=== PATIENT | male | born 1980 | race Caucasian/White ===

== ENCOUNTER 2024-01-27 14:15 | Emergency (ER) | payer MEDICAID, SELFPAY ==
[2024-01-27 14:30] VITALS: BP 144/99; PULSE 114; TEMP 36.6; O2SAT 95; BMI 30.1
--- NOTE | 2024-01-27 14:36 | US_ITS ---
The [address] [address] Patient Name: JOSELYN CARNES MRN: [id number] date: 1980 Sex: M Assigned Patient Location: ER Current Patient Location: Accession/Order Number: [id number] Exam Date: 01/27/2024 14:40 Report Date: 01/27/2024 15:30 At the request of: ABIGAIL HANCOCK Procedure: US venous doppler LE RT EXAM: US venous doppler LE RT HISTORY: DVT COMPARISON: None. TECHNIQUE: Grayscale, color and Doppler FINDINGS: Region: Right leg Thrombus: Echogenic thrombus identified in the great saphenous vein extending from the mid thigh to the proximal lower leg. No deep vein thrombus Flow: Absent flow corresponding to thrombus Compressibility: Noncompressibility corresponding to thrombus Augmentation: Normal proximal augmentation US/US venous doppler LE RT IMPRESSION: Occlusive superficial vein thrombus in the right great saphenous vein No right leg deep vein thrombus Electronically authenticated by: DILCIA GARZA Date: 01/27/2024 15:30
--- NOTE | 2024-01-27 14:37 | ED_ITS ---
HPI HPI - General Adult General Chief complaint: Extremity Problem, Nontraumatic Stated complaint: LOWER EXTREMITY PAIN Time Seen by Provider: 01/27/24 14:19 Source: patient Mode of arrival: walk-in Limitations: no limitations History of Present Illness HPI narrative: Patient is a 43-year-old male who presents to the emergency department for redness to the right medial thigh, he states he believes he has 2 blood clots. He states yesterday he noted some redness to the posterior right knee but this has resolved today and he now notes redness in the medial thigh. He has a history of DVT apparently although he is not currently anticoagulated. He is a regular smoker. No falls or injuries. No fevers or vomiting. No drainage from the areas. Related Data Previous Rx's ?Medication ?Instructions ?Recorded aspirin 81 mg capsule 81 mg PO DAILY #30 caps 01/27/24 ketorolac 10 mg tablet 10 mg PO TID PRN pain #10 tabs 01/27/24 Allergies Allergy/AdvReac Type Severity Reaction Status Date / Time sulfamethoxazole Allergy Severe hives Verified 01/27/24 14:36 [From Bactrim] trimethoprim [From Bactrim] Allergy Severe hives Verified 01/27/24 14:36 Opioid HPI Opioid Management Most Recent Opioid Data: No Data to Display Review of Systems ROS Constitutional Denies: fever or chills Ears, nose, mouth, and throat Denies: throat pain or nasal congestion Respiratory Denies: shortness of breath Gastrointestinal Denies: nausea or vomiting Musculoskeletal Reports: extremity pain; Denies: back pain or neck pain Integumentary/Breast Denies: rash Hematologic/Lymphatic Denies: easy bruising or easy bleeding Exam Narrative Exam Narrative: Gen.: Awake, alert, in no distress Head: Normocephalic, atraumatic ENT: Moist mucous membranes Respiratory: No respiratory distress Extremities: Right medial thigh with a small area of blanching erythema, no palpable masses or induration. No open wounds or drainage. No visible swelling or redness to the right posterior knee. Calves are soft and nontender bilaterally Psych: Normal mood and affect Neuro: No focal neuro deficit Skin: Warm, dry, intact Constitutional Vital Signs, click to edit/add: Last Vital Signs Temp 97.9 F 01/27/24 14:30 Pulse 114 H 08/14/24 14:30 Resp 18 01/27/24 14:30 BP 144/99 H 01/27/24 14:30 Pulse Ox 95 01/27/24 14:30 O2 Del Method Room Air 01/27/24 14:30 Course Vital Signs Vital signs: Vital Signs Temperature 97.9 F 01/27/24 14:30 Pulse Rate 114 H 01/27/24 14:30 Respiratory Rate 18 01/27/24 14:30 Blood Pressure 144/99 H 01/27/24 14:30 Pulse Oximetry 95 01/27/24 14:30 Oxygen Delivery Method Room Air 01/27/24 14:30 Temperature 97.9 F 01/27/24 14:30 Pulse Rate 114 H 01/27/24 14:30 Respiratory Rate 18 01/27/24 14:30 Blood Pressure 144/99 H 01/27/24 14:30 Pulse Oximetry 95 01/27/24 14:30 Oxygen Delivery Method Room Air 01/27/24 14:30 Medical Decision Making MDM Narrative Medical decision making narrative: Ultrasound shows superficial clot in the right GSV at the area of redness in the patient's right medial thigh. He is encouraged to take aspirin daily, apply warm compresses and he is given anti-inflammatories for comfort. Follow-up with PCP and return to the ER if symptoms change or worsen. SUPERVISED APC VISIT, PHYSICIAN ATTESTATION: Based on the medical record the care appears appropriate. ? Medical Records Medical records reviewed: Yes I reviewed the patient's medical records Imaging Data Venous US: Attestation: I have reviewed the pertinent imaging results. Discharge Plan Discharge Stand Alone Forms: Portal Instructions Chief Complaint: Extremity Problem, Nontraumatic Clinical Impression: Superficial thrombophlebitis of right leg Patient Disposition: Home, Self-Care Time of Disposition Decision: 15:18 Condition: Good Prescriptions / Home Meds: New aspirin 81 mg capsule 81 mg PO DAILY Qty: 30 0RF ketorolac 10 mg tablet 10 mg PO TID PRN (Reason: pain) Qty: 10 0RF Print Language: Albanian Instructions: Superficial Thrombophlebitis (ED) Referrals: SHANTHI FRANCO [Primary Care Provider] - 1 week
[2024-01-27] MEDS: KETOROLAC TROMETHAMINE 10 MG TABLET PO (15:23)
== END 2024-01-27 15:26 | disposition home or self-care (01) ==
PROVIDERS: Emergency Provider Emergency Medicine; PCP Nurse Practitioner
DX: I80.01 Phlebitis and thrombophlebitis of superficial vessels of right lower extremity (principal); Z86.718 Personal history of other venous thrombosis and embolism; F17.200 Nicotine dependence, unspecified, uncomplicated
CPT/HCPCS: 93971; 99284

== ENCOUNTER 2024-11-24 13:25 | Emergency (ER) | payer MEDICAID, SELFPAY ==
--- OUTSIDE RECORDS SUMMARY | 2022-12-17 05:15 | XMS_ITS | Continuity of Care Document ---
Author [facility] Address [address] [place] [address] Phone Care Team Providers Care Photographs Curator Name Role Phone Sang Bhatti MD Unavailable Unavailable Allergies, Adverse Reactions, Alerts Substance Reaction Status Criticality Sulfa (Sulfonamide Antibiotics) Unknown Active No Information trimethoprim Unknown Active No Information sulfamethoxazole Unknown Active No Informat ion Medications Medication Instructions Dosage Effective Dates (start - stop) Status Comments Ritalin 10 mg tablet take 3 tablet by or al route in AM and 1 tablet in the PM every day - Active Eliquis 5 mg tablet take 1 tablet by ora l route 2 times every day 5 MG - Active Zoloft 100 mg tablet take 2 tablet by or al route at bed time - Active Protonix 40 mg tablet,delayed release take 1 tablet by oral route every day 40 MG - Active Problems Condition Type Effective Dates (start - stop) Clini mario Status Comments No Known Problems Procedures Procedure Date REMOVAL OF LYMPH NODES, NECK OFFICE/OUTPATIENT VISIT, EST BIOPSY/REMOVAL, LYMPH NODES OFFICE/OUTPATIENT VISIT, EST OFFICE/OUTPATIENT VISIT, EST OFFICE/OUTPATIENT VISIT, EST OFFICE/OUTPATIENT VISIT, EST OFFICE/OUTPATIENT VISIT, EST OFFICE/OUTPATIENT VISIT, EST INITIAL INPATIENT CONSULT REMOVAL TUNNELED CV CATH SUBSEQUENT HOSPITAL CARE HOSPITAL DISCHARGE DAY INITIAL HOSPITAL CARE SUBSEQUENT HOSPITAL CARE OFFICE/OUTPATIENT VISIT, EST OFFICE/OUTPATIENT VISIT, EST HOSPITAL DISCHARGE DAY SUBSEQUENT HOSPITAL CARE SUBSEQUENT HOSPITAL CARE INITIAL HOSPITAL CARE BIOPSY/REMOVAL, LYMPH NODES OFFICE/OUTPATIENT VISIT, EST INSERT NON-TUNNEL CV CATH BIOPSY/REMOVAL, LYMPH NODES OFFICE/OUTPATIENT VISIT, EST OFFICE/OUTPATIENT VISIT, EST Guidance For Localization Guidance For Localization Guidance For Localization Guidance For Localization RADIATION TX MANAGEMENT, X5 CT Guidance For Placement Radiation Ther apy IGRT CT Guidance For Placement Radiation Ther apy IGRT CT Guidance For Placement Radiation Ther apy IGRT CT Guidance For Placement Radiation Ther apy IGRT Teletherapy Isodose Plan Complex 2015 Treatment Devices, Complex Simple Simulation RADIATION TX MANAGEMENT, X5 CT Guidance For Placement Radiation Ther apy IGRT CT Guidance For Placement Radiation Ther apy IGRT Complex Simulation CT Guidance For Placement Radiation Ther apy IGRT CT Guidance For Placement Radiation Ther apy IGRT RADIATION TX MANAGEMENT, X5 OFFICE/OUTPATIENT VISIT, EST CT Guidance For Placement Radiation Ther apy IGRT CT Guidance For Placement Radiation Ther apy IGRT CT Guidance For Placement Radiation Ther apy IGRT CT Guidance For Placement Radiation Ther apy IGRT CT Guidance For Placement Radiation Ther apy IGRT RADIATION TX MANAGEMENT, X5 CT Guidance For Placement Radiation Ther apy IGRT Treatment Devices, Complex Complex Simulation CT Guidance For Placement Radiation Ther apy IGRT CT Guidance For Placement Radiation Ther apy IGRT CT Guidance For Placement Radiation Ther apy IGRT CT Guidance For Placement Radiation Ther apy IGRT RADIATION TX MANAGEMENT, X5 Simple Simulation SET RADIATION THERAPY FIELD Basic Radiation Dosimetry Calculation Se Treatment Devices, Complex OFFICE/OUTPATIENT VISIT, EST RADIATION THERAPY PLANNING OFFICE/OUTPATIENT VISIT, NEW OFFICE/OUTPATIENT VISIT, EST OFFICE/OUTPATIENT VISIT, EST OFFICE/OUTPATIENT VISIT, EST OFFICE/OUTPATIENT VISIT, EST OFFICE/OUTPATIENT VISIT, EST OFFICE/OUTPATIENT VISIT, EST OFFICE/OUTPATIENT VISIT, EST INSERT NON-TUNNEL CV CATH OFFICE/OUTPATIENT VISIT, EST INSERT NON-TUNNEL CV CATH OFFICE/OUTPATIENT VISIT, EST OFFICE/OUTPATIENT VISIT, EST OFFICE/OUTPATIENT VISIT, EST BIOPSY/REMOVAL, LYMPH NODES OFFICE/OUTPATIENT VISIT, NEW OFFICE/OUTPATIENT VISIT, EST OFFICE/OUTPATIENT VISIT, EST OFFICE/OUTPATIENT VISIT, EST OFFICE/OUTPATIENT VISIT, EST OFFICE/OUTPATIENT VISIT, EST OFFICE/OUTPATIENT VISIT, NEW Advance Directives Directive Yes / No Effective Date File Name No Information Encounters Encounter Description Practice Location Reason(s) For Visit Diagnoses Date Provider Providers Copied on Encounter [facility], [address] [place] [address] B, [place], [place], [id number] , [place] tel:[phone] [facility] No Information 3 Magy Domínguez. [address] [place] [address], [place], [place], [address], [place]. tel:[phone] Referring Provider: Sang Corley, [address] [place] [address] [address], [place], [address] . tel:[phone] OFFICE/OUTPA TIENT VISIT, EST [facility], [address], [place], [place], [address] , [place] tel:[phone] [facility] No Information 3 Magy Domínguez. [address], [place], [place], [address], [place]. tel:[phone] Referring Provider: Sang Corley, [address], [place], [address] . tel:[phone] [facility] [facility], [address], [place], [place], [address] , [place] tel:[phone] [facility] No Information Sep- 9 Magy Domínguez. [address], [place], [place], [address], [place]. tel:[phone] Referring Provider: Sang Corley, [address] [facility] [address], [place], [address] . tel:[phone] OFFICE/OUTPA TIENT VISIT, [facility], [address], [place], [place], [address] , [place] tel:[phone] [facility] No Information 9 Magy Domínguez. [address], [place], [place], [address], [place]. tel:[phone] Referring Provider: Sang Corley, [address], [place], [address] . tel:[phone] OFFICE/OUTPA TIENT VISIT, [facility], [address], [place], [place], [address] , [place] tel:[phone] [facility] Chronic pain syndrome (chief complaint) Hodgkin lymphoma of lymph nodes of multiple regions, unspecified Hodgkin lymphoma typeGAD (generalized anxiety disorder)Deep vein thrombosis (DVT) of right upper extremity, unspecified chronicity, unspecified veinSwelling of right hand Sep-1 7 Ashley Reece. [address] [place] [address] [address], [place], [place], [address], [place]. tel:[phone] Referring Provider: Chevy Chaparro, [facility] [address], [place], [address] . tel:[phone] OFFICE/OUTPA TIENT VISIT, [facility], [address] [place] [address] [address], [place], [place], [address] , [place] tel:[phone] [facility] Chronic pain syndrome (chief complaint) Hodgkin lymphoma of lymph nodes of multiple regions, unspecified Hodgkin lymphoma typeRLQ abdominal pain Ashley Reece. [facility] [address], [place], [place], [address], [place]. tel:[phone] Referring Provider: Chevy Chaparro, [address] [place], [place] [address] [address], [place], [address] . tel:[phone] OFFICE/OUTPA TIENT VISIT, [facility], [address] [place] [address] [address], [place], [place], [address] , [place] tel:[phone] [facility] Chronic pain syndrome (chief complaint) Chronic pain syndromeDepres kelsie, unspecified depression typeCigarette nicotine dependence without complication Ashley Reece. [facility] [address], [place], [place], [address], [place]. tel:[phone] Referring Provider: Chevy Chaparro, [facility] [address], [place], [address] . tel:[phone] OFFICE/OUTPA TIENT VISIT, [facility], [address] [place] [address] [address], [place], [place], [address] , [place] tel:[phone] [facility] Chronic pain syndrome (chief complaint) Malignant neoplasm metastatic to lumbar spine with unknown primary siteDeep vein thrombosis (DVT) of right upper extremity, unspecified chronicity, unspecified veinHodgkin lymphoma, unspecified Hodgkin lymphoma type, unspecified body region Ashley Reece. [facility] [address], [place], [place], [address], [place]. tel:[phone] Referring Provider: Chevy Chaparro, [address] [place], [place] [address] [address], [place], [address] . tel:[phone] OFFICE/OUTPA TIENT VISIT, [facility], [address], [place], [place], [address] , [place] tel:[phone] [facility] TCM (chief complaint) Cellulitis of chest wallDeep vein thrombosis (DVT) of right upper extremity, unspecified chronicity, unspecified vein 7 Ashley Reece. [address], [place], [place], [address], [place]. tel:[phone] Referring Provider: Chevy Chaparro, [address] [facility] [address], [place], [address] . tel:[phone] INITIAL INPATIENT CONSULT [facility], [address] [place] [address] [address], [place], [place], [address] , [place] tel:[phone] [facility] No Information 7 Magy Domínguez. [address], [place], [place], [address], [place]. tel:[phone] [facility], [address], [place], [place], [address] , [place] tel:[phone] [facility] No Information 7 Guillermo Jose. [address], [place], [place], [address], [place]. tel:[phone] Referring Provider: Rebeca Li, [address], [place], [address] . tel:[phone] INITIAL [facility], [address] [place] [address] [address], [place], [place], [address] , [place] tel:[phone] [facility] No Information 7 No Information OFFICE/OUTPA TIENT VISIT, [facility], [address] [place] [address] [address], [place], [place], [address] , [place] tel:[phone] [facility] Port (chief complaint)Hodp kin's disease (chief complaint) CML (chronic myelocytic leukemia)Pain, neckTinea versicolorGyne comastia 7 Ashley Reece. [address] [place] [address] [address], [place], [place], [address], [place]. tel:[phone] Referring Provider: Chevy Chaparro, [address] [place] [address], [place], [address] . tel:[phone] OFFICE/OUTPA TIENT VISIT, [facility], [address] [place] [address] B, [place], [place], [address] , [place] tel:[phone] [facility] Cough (chief complaint) Hodgkin lymphoma of lymph nodes of multiple regions, unspecified Hodgkin lymphoma typeDepression , unspecified depression typeGastroesop hageal reflux disease, esophagitis presence not specified 7 Ashley Reece. [address] [place] [address], [place], [place], [address], [place]. tel:[phone] Referring Provider: Chevy Chaparro, [address] [place] [address], [place], [address] . tel:[phone] HOSPITAL DISCHARGE DAY [facility], [address] [place] [address], [place], [place], [address] , [place] tel:[phone] [facility] No Information 7 No Information SUBSEQUENT [facility], [address] [place] [address], [place], [place], [address] , [place] tel:[phone] [facility] No Information 7 No Information INITIAL [facility], [address] [place] [address], [place], [place], [address] , [place] tel:[phone] [facility] No Information 7 Hipolito Baker. [address] [place], [address], [place]. tel:[phone] Referring Provider: Samuel Mcmillan, [address] [place], [address] . tel:[phone] [facility], [address] [place] [address] B, [place], [place], [address] , [place] tel:[phone] [facility] No Information 7 Magy Domínguez. [facility] [address] [facility] [address], [place], [place], [address], [place]. tel:[phone] Referring Provider: Sang Corley, [address] [place] [address] [address], [place], [address] . tel:[phone] OFFICE/OUTPA TIENT VISIT, [facility], [address] [place] [address] [address], [place], [place], [address] , [place] [phone] [facility] No Information 7 Magy Domínguez. [facility] [address] [facility] [address], [place], [place], [address], [place]. tel:[phone] Referring Provider: Sang Corley, [address] [place] [address] [address], [place], [address] . tel:[phone] [facility] [facility], [address] [place] [address] [address], [place], [place], [address] , [place] tel:[phone] [facility] No Information 7 Magy Domínguez. [address], [place], [place], [address], [place]. tel:[phone] Referring Provider: Sang Corley, [address] [place] [address] [address], [place], [address] . tel:[phone] OFFICE/OUTPA TIENT VISIT, [facility], [address] [place] [address] [address], [place], [place], [address] , [place] tel:[phone] [facility] No Information 7 Magy Domínguez. [address] [place] [address] [address], [place], [place], [address], [place]. tel:[phone] Referring Provider: Sang Corley, [address] [place] [address] [address], [place], [address] . tel:[phone] OFFICE/OUTPA TIENT VISIT, [facility] [employer] [facility], [address] [place] [address] [address], [place], [place], [address] , [place] tel:[phone] [facility] Depression (chief complaint) Chronic low back pain with sciatica, sciatica laterality unspecified, unspecified back pain lateralityHodg kin lymphoma of lymph nodes of multiple regions, unspecified Hodgkin lymphoma typeGAD (generalized anxiety disorder)Depre ssion, unspecified depression type 7 Ashley Reece. [address], [place], [place], [address], [place]. tel:[phone] Referring Provider: Chevy Chaparro, [address] [facility] [address], [place], [address] . tel:[phone] [facility] [facility], [address] [place] [address] [address], [place], [place], [address] , [place] tel:[phone] [facility] No Information 4 6 No [facility] [facility], [address] [place] [address] [address], [place], [place], [address] , [place] tel:[phone] [facility] No Information 0 6 No [facility], [address] [place] [address] [address], [place], [place], [address] , [place] tel:[phone] [facility] No Information 9 6 No [facility], [address] [place] [address] [address], [place], [place], [address] , [place] tel:[phone] [facility] No Information 8 6 No [facility], [address] [place] [address] [address], [place], [place], [address] , [place] tel:[phone] [facility] No Information 3 6 No [facility], [address] [place] [address] [address], [place], [place], [address] , [place] tel:[phone] [facility] No Information 2- 6 No [facility], [address] [place] [address] B, [place], [place], [address] , [place] tel:[phone] [facility] No Information 6 No [facility], [address], [place], [address] , [place] tel:[phone] [facility] No Information 6 No [facility], [address], [place], [address] , [place] tel:[phone] [facility] No Information 6 No [facility], [address], [place], [address] , [place] tel:[phone] [facility] No Information 6 No [facility] [facility], [address], [place], [address] , [place] tel:[phone] [facility] No Information 6 No [employer], [address], [place], [address] , [place] tel:[phone] [facility] No Information 6 No [employer], [address], [place], [address] , [place] tel:[phone] [facility] No Information 6 No [employer], [address], [place], [address] , [place] tel:[phone] [facility] No Information 6 No Information OFFICE/OUTPA TIENT VISIT, [facility] [facility], [address], [place], [address] , [place] tel:[phone] [facility] musculoskeleta l pain (chief complaint)canc er (chief complaint) Lumbago with sciatica, right sideOther chronic painHodgkin lymphoma, unspecified Hodgkin lymphoma type, unspecified body regionMetastat ic cancer to spine 6 Mirta Burgess. [address], [place], [place], [address], [place]. tel:[phone] Referring Provider: Aditya Kirby APRN PHYSICIAN INTERVENTIONAL CARDIOLOGIST-C, [address], [place], [address] . tel:[phone] [facility], [address], [place], [place], [address] , [place] tel:[phone] [facility] No Information 0 6 No [facility], [address], [place], [place], [address] , [place] tel: [phone] [facility] No Information 6 No [facility], [address], [place], [place], [address] , [place] tel:[phone] [facility] No Information 6 No [facility] [facility], [address], [place], [place], [address] , [place] tel:[phone] [facility] No Information 6 No [facility] [facility], [address], [place], [place], [address] , [place] tel:[phone] [facility] No Information 6 No [facility], [address], [place], [place], [address] , [place] tel: [phone] [facility] No Information 6 No [facility], [address], [place], [place], [address] , [place] tel:[phone] [facility] No Information 6 No [facility], [address], [place], [place], [address] , [place] tel:[phone] [facility] No Information 6 No [facility] [facility], [address], [place], [place], [address] , [place] tel:[phone] [facility] No Information 6 No [facility], [address], [place], [place], [address] , [place] tel: [phone] [facility] No Information 6 No [facility], [address], [place], [place], [address] , [place] tel: [phone] [facility] No Information 6 No [facility], [address] [place] [address] [address], [place], [place], [address] , [place] tel: [phone] [facility] No Information No Information OFFICE/OUTPA TIENT VISIT, [facility], [address], [place], [place], [address] , [place] tel: [phone] [facility] medication (chief complaint)depr ession (chief complaint) Depression, unspecified depression typeLumbago with sciatica, left sideLumbago with sciatica, right sideOther chronic painMetastatic cancer to spineHodgkin lymphoma, unspecified Hodgkin lymphoma type, unspecified body regionTobacco abuseMultiple episodes of deep venous thrombosis, bilateral Feb- 6 Mirta Burgess. [address] [address], [place], [place], [address], [place]. tel:[phone] Referring Provider: Aditya URIBE, [address] [place] [address] [address], [place], [address] . tel:[phone] OFFICE/OUTPA TIENT VISIT, [facility], [address] [place] [address] [address], [place], [place], [address] , [place] tel: [phone] [facility] No Information 6 No Information OFFICE/OUTPA TIENT VISIT, [facility], [address], [place], [place], [address] , [place] tel: [phone] [facility] depression (chief complaint)medi cation (chief complaint) Hodgkin lymphoma of lymph nodes of multiple regions, unspecified Hodgkin lymphoma typeMetastatic cancer to spineMid back pain on right sideChronic depressionMult iple episodes of deep venous thrombosis, bilateralOn warfarin therapy 6 Tanvi Calzada. [address] [place], [place], [address], [place]. tel:[phone] Referring Provider: Elsi Tinajero CNP, [address] [place], [address] . tel:[phone] [facility] [facility], [address] [place] [address] [address], [place], [place], [address] , [place] tel:[phone] [facility] Acute embolism and thrombosis of left axillary vein 6 Tanvi Calzada. [address] [place], [address], [place]. tel:[phone] OFFICE/OUTPA TIENT VISIT, [facility] [employer] [facility], [address], [place], [place], [address] , [place] tel:[phone] [facility] depression (chief complaint)Foll ow Up of left arm pain (chief complaint)RF meds (chief complaint)rash (chief complaint) Lymphoma, unspecified body region, unspecified lymphoma typeMetastatic bone cancerChronic low back pain with sciatica, sciatica laterality unspecified, unspecified back pain lateralityAcut e embolism and thrombosis of left axillary veinDepression , acuteTinea corporis 6 Tanvi Calzada. [address] [place], [place], [address], [place]. tel:[phone] Referring Provider: Elsi Tinajero CNP, [address] [place], [address] . tel:[phone] [facility] [facility], [address], [place], [place], [address] , [place] tel:[phone] [facility] Acute embolism and thrombosis of left axillary vein 6 Tanvi Calzada. [address] [place], [place], [address], [place]. tel:[phone] [facility], [address] [place] [address] Road [address], [place], [place], [address] , [place] tel: [phone] [facility] Acute embolism and thrombosis of left axillary vein 0 6 Tanvi Calzada. [address] [place] [place], [address], [place]. tel:[phone] OFFICE/OUTPA TIENT VISIT, [facility], [address] [place] [address] [address], [place], [place], [address] , [place] tel: [phone] [facility] medication (chief complaint)chem otherapy (chief complaint)depr ession (chief complaint) Depression, acutePainHodgk in lymphoma of lymph nodes of multiple regions, unspecified Hodgkin lymphoma typeAcute embolism and thrombosis of left axillary veinOn warfarin therapy 6 Tanvi Calzada. [address] [place], [place], [address], [place]. tel:[phone] Referring Provider: Elsi Tinajero CNP, [address] [place], [address] . tel:[phone] [facility], [address] [place] [address] [address], [place], [place], [address] , [place] tel: [phone] [facility] Acute embolism and thrombosis of left axillary vein 6 Tanvi Calzada. [address] [place], [place], [address], [place]. tel:[phone] [facility], [address] [place] [address] [address], [place], [place], [address] , [place] tel: [phone] [facility] Acute embolism and thrombosis of left axillary vein 6 Tanvi Calzada. [address] [place], [address], [place]. tel:[phone] OFFICE/OUTPA TIENT VISIT, [facility], [address] [place] [address] [address], [place], [place], [address] , [place] tel:[phone] [facility] Suture removal (chief complaint) DVT of left axillary vein, acuteMetastati c bone cancerVisit for suture removal 6 Ashley Reece. [address], [place], [place], [address], [place]. tel:[phone] Referring Provider: Chevy Chaparro, [address] [place] [address] [address], [place], [address] . tel:[phone] OFFICE/OUTPA TIENT VISIT, [facility], [address], [place], [place], [address] , [place] tel:[phone] [facility] Follow Up of DVT (chief complaint)Foll ow up on lab test(s) (chief complaint) DVT of left axillary vein, acuteGAD (generalized anxiety disorder)Hodgk in lymphoma of lymph nodes of multiple regions, unspecified Hodgkin lymphoma type 6 Ashley Reece. [address], [place], [place], [address], [place]. tel:[phone] Referring Provider: Chevy Chaparro, [address] [place] [address] [address], [place], [address] . tel:[phone] OFFICE/OUTPA TIENT VISIT, [facility], [address] [place] [address] [address], [place], [place], [address] , [place] tel:[phone] [facility] arm swelling (chief complaint) DVT of left axillary vein, acuteHodgkin lymphoma of lymph nodes of multiple regions, unspecified Hodgkin lymphoma typeDepression , acutePain 6 Tanvi Calzada. [address], [place], [place], [address], [place]. tel:[phone] Referring Provider: Elsi Tinajero CNP, [address], [place], [address] . tel:[phone] OFFICE/OUTPA TIENT VISIT, [facility], [address] [place] [address] [address], [place], [place], [address] , [place] tel:[phone] [facility] Hodgkin Lymphoma (chief complaint) Hodgkin lymphoma of lymph nodes of multiple regions, unspecified Hodgkin lymphoma type 6 Ashley Reece. [address], [place], [place], [address], [place]. tel:[phone] Referring Provider: Chevy Chaparro, [address], [place], [address] . tel:[phone] [facility] [facility], [address] [place] [address] [address], [place], [place], [address] , [place] tel:[phone] [facility] No Information No Information Referring Provider: Sang Corley, [address] [place] [address] [address], [place], [address] . tel:[phone] OFFICE/OUTPA TIENT VISIT, [facility], [address] [place] [address] [address], [place], [place], [address] , [place] tel:[phone] [facility] Reeves Lymphoma (chief complaint) Hodgkin lymphoma of lymph nodes of multiple regions, unspecified Hodgkin lymphoma typeChronic low back pain with sciatica, sciatica laterality unspecified, unspecified back pain lateralityGAD (generalized anxiety disorder) 6 Ashley Reece. [address], [place], [place], [address], [place]. [phone] Referring Provider: Chevy Chaparro, [address] [place], [place] [address] [address], [place], [address] . tel:[phone] [facility] [facility], [address] [place] [address] [address], [place], [place], [address] , [place] tel:[phone] [facility] No Information 6 Magy Domínguez. [address] [place] [address] [address], [place], [place], [address], [place]. tel:[phone] Referring Provider: Sang Corley, [address] [place] [address] [address], [place], [address] . tel:[phone] OFFICE/OUTPA TIENT VISIT, [facility], [address], [place], [place], [address] , [place] tel:[phone] [facility] No Information 6 Magy Domínguez. [address] [facility] [address], [place], [place], [address], [place]. tel:[phone] Referring Provider: Sang Corley, [address] [facility] [address], [place], [address] . tel:[phone] OFFICE/OUTPA TIENT VISIT, [facility], [address] [place] [address] [address], [place], [place], [address] , [place] tel:[phone] [facility] Follow up (chief complaint) Hodgkin lymphoma of lymph nodes of multiple regions, unspecified Hodgkin lymphoma type 6 Ashley Reece. [address], [place], [place], [address], [place]. tel:[phone] Referring Provider: Chevy Chaparro, [address], [place], [address] . tel:[phone] OFFICE/OUTPA TIENT VISIT, [facility], [address] [place] [address] [address], [place], [place], [address] , [place] tel:[phone] [facility] recall (chief complaint)spot (chief complaint) Lymphoma, unspecified body region, unspecified lymphoma typeBilateral low back pain without sciatica 6 Ashley Reece. [address], [place], [place], [address], [place]. tel:[phone] Referring Provider: Chevy Chaparro, [address], [place], [address] . tel:[phone] [facility], [address] [place] [address] [address], [place], [place], [address] , [place] tel:[phone] [facility] No Information 6 Magy Domínguez. [address] [facility] [address], [place], [place], [address], [place]. tel:[phone] Referring Provider: Sang Corley, [address] [facility] [address], [place], [address] . tel:[phone] OFFICE/OUTPA TIENT VISIT, [facility], [address], [place], [place], [address] , [place] tel:[phone] [facility] No Information 6 Magy Domínguez. [address] [facility] [address], [place], [place], [address], [place]. tel:[phone] Referring Provider: Chevy Chaparro, [address], [place], [address] . tel:[phone] [facility], [address] [place] [address] [address], [place], [place], [address] , [place] tel:[phone] [facility] Metastatic cancer 6 Ashley Reece. [facility] [address], [place], [place], [address], [place]. tel:[phone] OFFICE/OUTPA TIENT VISIT, [facility], [address] [place] [address] [address], [place], [place], [address] , [place] tel:[phone] [facility] MRI results (chief complaint) Metastatic cancerOther eczema 6 Ashley Reece. [address], [place], [place], [address], [place]. tel:[phone] Referring Provider: Chevy Chaparro, [facility] [address], [place], [address] . tel:[phone] OFFICE/OUTPA TIENT VISIT, [facility] [employer] [facility], [address] [place] [address] [address], [place], [place], [address] , [place] tel:[phone] [facility] Back pain (chief complaint) Metastatic cancer 6 Ashley Reece. [address], [place], [place], [address], [place]. tel:[phone] Referring Provider: Chevy Chaparro, [facility] [address], [place], [address] . tel:[phone] OFFICE/OUTPA TIENT VISIT, [facility], [address], [place], [place], [address] , [place] tel:[phone] [facility] Back pain (chief complaint) Lumbar herniated disc 6 Ashley Reece. [address], [place], [place], [address], [place]. tel:[phone] Referring Provider: Chevy Chaparro, [address], [place], [address] . tel:[phone] [facility], [address] [place] [address] [address], [place], [place], [address] , [place] tel:[phone] [facility] No Information 4 Tanvi Calzada. [address], [place], [place], [address], [place]. tel:[phone] OFFICE/OUTPA TIENT VISIT, [facility], [address], [place], [place], [address] , [place] tel:[phone] [facility] No Information 3 Tanvi Calzada. [address], [place], [place], [address], [place]. tel:[phone] Referring Provider: Elsi Tinajero CNP, [address], [place], [address] . tel:[phone] OFFICE/OUTPA TIENT VISIT, [facility], [address] [place] [address] [address], [place], [place], [address] , [place] tel:[phone] [facility] No Information 3 Ashley Reece. [address], [place], [place], [address], [place]. tel:[phone] Referring Provider: Chevy Chaparro, [address], [place], [address] . tel:[phone] OFFICE/OUTPA TIENT VISIT, [employer] [facility], [address], [place], [address] , [place] tel: [phone] [facility] No Information 3 Tanvi Calzada. [address] [place], [address], [place]. [phone] Referring Provider: Elsi Tinajero CNP, [address] [place], [address] . tel:[phone] Family History Family Member Type Diagnosis Age At Onset Mother Problem (finding) multiple sclerosis Father Problem (finding) Abestos (Cause Of ) Mother Problem (finding) stroke Payers Payer name Insurance type Covered alliance party ID Charito townsend(s) Pam [place] Medicaid MC [id number] Social History Type Description Quantity Date Captured Comments Sex Male Smoking Status No Information Chief Complaint And Reason For Visit No Information Reason For Referral Reason For Referral No Information Plan Of Treatment Date Type Action Status Goal Depression scree perez. Due on due Goal URINALYSIS NONAU TO W/O SCOPE. Due on due Goal Influenza vaccin e. Due on due Goal Td vaccine. Due on 17 due Goal Dexa Scan. Due on 7 due Goal Dexa Scan. Due on due Goal Td vaccine. Due on 17 due Goal Influenza vaccin e. Due on due Goal Glucose. Due on due Goal URINALYSIS NONAU TO W/O SCOPE. Due on due Goal Depression scree perez. Due on due Goal Tobacco cessation counseling completed Goal Dexa Scan. Due on 7 due Goal Influenza vaccin e. Due on due Goal Td vaccine. Due on 17 due Goal Glucose. Due on due Goal URINALYSIS NONAU TO W/O SCOPE. Due on due Goal Depression scree perez. Due on due Goal Depression scree perez. Due on due Goal URINALYSIS NONAU TO W/O SCOPE. Due on due Goal Glucose. Due on due Goal Td vaccine. Due on 17 due Goal Influenza vaccin e. Due on due Goal Dexa Scan. Due on due Goal Influenza vaccin e. Due on due Goal Td vaccine. Due on 17 due Goal Glucose. Due on due Goal URINALYSIS NONAU TO W/O SCOPE. Due on due Goal Depression scree perez. Due on due Goal Dexa Scan. Due on due Goal Depression scree perez. Due on due Goal URINALYSIS NONAU TO W/O SCOPE. Due on due Goal Glucose. Due on due Goal Influenza vaccin e. Due on due Goal Td vaccine. Due on 17 due Goal Dexa Scan. Due on 7 due Goal Depression scree perez. Due on due Goal URINALYSIS NONAU TO W/O SCOPE. Due on due Goal Influenza vaccin e. Due on due Goal Td vaccine. Due on 17 due Goal Dexa Scan. Due on 7 due Goal Dexa Scan. Due on 7 due Goal Influenza vaccin e. Due on due Goal Td vaccine. Due on 17 due Goal URINALYSIS NONAU TO W/O SCOPE. Due on due Goal Depression scree perez. Due on due Goal Tdap. Due on due Goal Td vaccine. Due on 16 due Goal URINALYSIS NONAU TO W/O SCOPE. Due on due Goal Depression scree perez. Due on due Goal Colonoscopy. Due on 016 due Goal EKG. Due on due Goal Influenza vaccin e. Due on due Referral Ordered: Chevy Ceballos -Hematology (related to Lymphoma, unspecified body region, unspecified lymphoma type) ordered Referral Referred To: Chevy Ceballos [address], [phone] Ordered: Referrals: Hematology. Chevy Ceballos. Evaluate and treat ordered Future Order: Lab Order PDM Prof ile 5 ([id number]), Ordered on: Ordered Future Order: Lab Order PT ([id number]), Ordered on: Ordered Future Order: Lab Order PTT ([id number]), Ordered on: Ordered Future Order: Radiology Order VL Duplex Venous Left Limited ([id number]), Ordered on: Ordered Future Order: Radiology Order US Scrotum (Contents) w/ or w/o Doppler ([id number]), Ordered on: Ordered Future Order: Radiology Order CT Head or Brain w/ + w/o Contrast ([id number]), Ordered on: Ordered Future Order: Radiology Order XR Hip Complete Left ([id number]), Ordered on: Ordered Future Order: Radiology Order XR Hip Complete Right ([id number]), Ordered on: Ordered Future Order: Radiology Order XR Femur Left ([id number]), Ordered on: Ordered Future Order: Radiology Order XR Femur Right ([id number]), Ordered on: Ordered Future Order: Radiology Order XR Chest PA/LAT ([id number]), Ordered on: Ordered Future Order: Radiology Order CT Abdomen + Pelvis w/ Contrast ([id number]), Ordered on: Ordered Future Order: Radiology Order CT Thorax w/ Contrast ([id number]), Ordered on: Ordered Future Order: Radiology Order MR I Spine Lumbar w/o Contrast ([id number]), Ordered on: Ordered History Of Present Illness Encounter Date Complaint History Of Prese nt Illness Chronic pain syndrome (comments) Patient here for f/u for his He has stem cell transplant which was done at [facility]. He has legimate reason for his pain. He has received 60 oxycodone from multiple providers enough until end of month. He has ED issues but will defer this at this time. He needs refill of his depression medication and Eliquis. Chronic pain syndrome Patient he re for refills of pain medications today. Chronic pain syndrome Patient he re for refills today. Chronic pain syndrome (comments) Patient here for f/u for his chronic pain. He has been seen at [facility] and is due to have stem cell transplant on thursday. He now has pain in his RLQ pain and testicle pain. He was advised he must not share his medication with anyone. Chronic pain syndrome Patient he re for pain medication refills today. Chronic pain syndrome (comments) Patient here for f/u. He is due for refill of his pain medication. He still has pain in RT anterior chest and mid back. No pain in neck. He is awaiting stem cell transplant for hodgkins lymphoma. I do not he was placed on 2 new medications by [facility]. He states a psyhiatrist placed him on Ritalin 20mg. He is unsure of the other medication that placed him on. Chronic pain syndrome (comments) Patient here for f/y for his chronic pain. He has CML cancer. He is due for refill of Percocet. I will reduce him to 2x/day. He had recent procedure on his bone marrow. He goes back to [facility] for more testing. He will be admitted December 29 for Stem cell transplant.He is currently using a nicotine patch. He still smokes 4 cigs a day. Chronic pain syndrome Patient he re for pain medication refills today. TCM (comments) Patient here fpr TCM. He was amitted for DVT on RT upper arm. He was consultated by Vascular and oncology. His port was removed. They could not control him with warfarin. He will be going to [facility] for stem cell transplant. I have advised during this time he should have them refill his pain medication. TCM Patient here for follow blood clot in port Neck, right shoulder, and right arm. Port Patient port is not working and is very painful. Patient is Scheduled 12/03/2016 to have it removed and was hoping it can be done sooner. Hodpkin's disease Patient here f or pain medication refills today. Port (comments) Patient has CML and has port that causes pain that radiates to RT side of neck. He is going to followed up in [place] for stem cell transplant. Cough (comments) Patient here fo r f/u for URI symptoms. He was recnetly in hospital with excaebation of non-hodgkins lymphoma. He has swelling in his neck. Pain is 6-7/10 on [address] He has CT scan booked on thursday and will f/u with Dr. Ceballos. He may be referred to [facility] depending on results.He states Dr. Ceballos is no longer covering his pain medication. Cough Onset: 2 Days. T he severity of the problem is moderate. The problem has worsened. The symptoms are persistent. Associated symptoms include chills/rigors, cough, fatigue and fever. Depression (comments) Patient he re for f/u for depression. He needs refill of his Zoloft. He is getting another port placed for more chemotherpay. Next plan is stem cell transplant if chemo unsuccessful. He is currently being managed by Dr. Ceballos for his non-hodgkins. His percocet is being managed br Dr. Ceballos. Depression The patient does not present with anxious/fearful thoughts or fatigue. cancer Patient was told by his radiation specialist that they found another spot of cancer on his spine. Patient says the radiologist gave him Percocet for his pain. He also says there are spots where the Hodgkin's Lymphoma was. Patient has not seen Dr. Ceballos yet to follow up. musculoskeletal pain Location: l ower to mid back. Hand Dominance: right. Additional information: Patient is here for 1 month follow up and refill of pain medication. depression This is a follow up visit. Additional information: Patient states he is unsure if the zoloft is working. He takes it at night and it does help him fall asleep. medication Patient is here for a 1 month follow up and refill of all of his chronic medications. medication Patient says he also needs all of his chronic medications refilled. depression This is a follow up visit. There is continuation of initial symptoms. Additional information: Patient says the zoloft is not working well. He would like to discuss increasing or changing it. depression (comments) he left la st visit with taking 1.5 tabs QD and has ioncreased himself to 2 tabs daily. this seems to be working. He is concerned about another blood clot in the right forearm from where they gave chemo yesterday but it seems to be breaking up already today he thinks. It was a little warm and tender yesterday . he says the back pain in mid to lower right back seems to have worsened. his last round of chemo is to be done next week. rash The patient pres ents for rash. This episode began 1 month ago. The symptom(s) are described as occurs continuously. Affected area(s) include buttocks and groin. The patient describes the affected area(s) as burning and itchy. Associated symptoms include edema, fatigue and pruritus. RF meds (comments) his girlfrien d says there is always a problem with his coumadin levle the week he is on the chemo and then when he is NOT on it , the levels are okay. this week the INR is in perfect range but he is not on chemo so she and the patient are concerned that next week the draw will be off. depression This is a follow up visit. The first episode occurred in 2014. There is continuation of initial symptoms. The patient reports functioning as somewhat difficult. Additional information: loose stools since on chemo. Follow Up of left arm pain It oc curs constantly and is worsening. Location: left upper arm. The pain radiates to the thumb. The pain is burning. Associated symptoms include swelling. Hand Dominance: right. RF meds depression (comments) the citalo pram is not working and his libido is affected also. chemotherapy Patient has been receiving chemotherapy treatment and says it is causing him erectile dysfunction problems. medication Patient here for follow up and refill of pain medication. depression There is continu ation of initial symptoms. Additional information: Patient says the antidepressant is not working for him. chemotherapy (comments) they did the chemo in the left arm yesterday so they are not affraid of the clots in the left upper arm. He says it is still a little tender in the left upper arm, near the armpit but it is resolving. medication (comments) the vascul ar office at [facility] wants him to come there every week to test his coumadin but he wants to stay local, due to problems with transportation. Suture removal (comments) Patien t here today for suture removal from previous port on LT side anterior of chest.He also has axillary thrombosis on LT arm. PT/INR was 4.9 on 10/25. He has been cut back and now taking 5mg daily. He does need refill of same and we give lap order. He is now off lovenox. Suture removal Patient here for suture removal from removal of medi port. Follow Up of DVT Patient was at [facility] 10/14-10/19/15 for a DVT of the upper left extremity. Patient states he is feeling much better today. He was started on lovenox, protonix, and warfarin. Follow Up of DVT (comments) Miladis ent in today for follow up after DVT. 6 days after office visit he presented with blood clot in his LT neck causes axillary pain. He was seen in ER given Lovenox then seen PHYSICIAN INTERVENTIONAL CARDIOLOGIST did US and found clot has extended seen at [facility] at that time put on Lovenox and coumadin. Secondly he has a port for chemo therapy that has been taking out. Patient feels very axnious because all of the above. Follow up on lab test(s) Patient had labs drawn today at [facility] and is here to follow up. arm swelling Onset: 3 days ag o. Location: left upper arm. Context: there is no injury. Associated symptoms include erythema and pain. Additional information: Patient believes he may have another blood clot in his upper arm. arm swelling (comments) 2 weeks ago he had a blod clot in his left neck and was seen in the ER. they put him on Lovenox for the 2 weeks and now he thinks there is another blood clot in the left armm. He and the girlfriend say, they think it is the port causing these blood clots . he is not SOB or having chest pain. he is depressed, and wants to increase the citalopram and has been taking more than BID dosing of the Percocet and needs a refill today also,. Hodgkin Lymphoma Patient here fo r follow up today. Hodgkin Lymphoma (comments) pt i s here for f/u, pt has been getting chemo for hodgkins lymphoma, we have reviewed the oncology note which states pt is responding well to treatment, pt continues to take pain meds for the lesions that are still on his spine, pt has gained 14 pounds, pt continues to smoke 8-10 cigarettes and we have counseled pt to stop, OARRs will be checked today [facility] Patient is here for follow up today. [place] [facility] (comments) pt h as been dx with and has been doing very well with treatment, pt has recently started to get anxious and angry with the stress of the new dx and the treatments, pt is on a treatment regimen of 1 treatment every 2 weeks Follow up Patient here for follow up from bone marrow BX. Patient still having pain at site of BX, pt would like to have the area checked, pt states the area did have swelling after spot pt has a mass on where he had the biposy done that he would like to have checked recall pt is here for a recall, we have reviewed all the reports with the pt we are waiting for the path report and we have counseled pt that we will be sending him to Dr. Ceballos MRI results Patient here to go over testing todaypt girl friend states the masses in the groni and has been there for about 5 years we ahve reviewed the CT scan with the pt, and we have counseled pt that they did not show a tumor but the lymph node are enlargedpt states he still has not found out what kind of cancer is in his family Back pain Additional infor cayden: Patient was recalled on MRI results, we have reviewed the MRI with the pt. Back pain The problem is w orsening. It occurs persistently. Location of pain is lower back. Pain is radiated to the right calf, right foot, right thigh and right buttock.The patient describes the pain as numbness, piercing, sharp, shooting and stabbing. Additional information: Patient ER [place]. Back pain (comments) pt went to ER on [place] for low back pain. They gave pt Naprosyn 500mg BID and Prednisone taper dose. Numbness and tingling in RT leg with 8/10 pain. Functional Status Date Functional Assessmen t No Information Instructions Date Instruction Additional Infor cayden Xray ordered Related to Swell ing of right hand Continue Eliquis Related to Deep vein thrombosis (DVT) of right upper extremity, unspecified chronicity, unspecified vein Continue f/u with specialist Rel ated to Hodgkin lymphoma of lymph nodes of multiple regions, unspecified Hodgkin lymphoma type Continue medication. Refilled. R elated to FRANTZ (generalized anxiety disorder) Pt has catheter plac ed for Stem cell tansplant. Related to RLQ abdominal pain After checking OARRs pt had oxycodone Rx filled by Dr. Ceballos. No refilled today of Percocet Continue to f/u with [facility]. RTO 1month. Related to Hodgkin lymphoma of lymph nodes of multiple regions, unspecified Hodgkin lymphoma type Continue meds. Refilled. RTO 3mo s Related to Depression, unspecified depression type Continue Percocet. R efilled. OARRs UTD.RTO 1 month Related to Chronic pain syndrome Decrease Percocet to 2x/day. Continue to f/u with specialist. RTO 1month. Related to Malignant neoplasm metastatic to lumbar spine with unknown primary site Decrease Percocet to 2x/day. Continue to f/u with specialist. RTO 1month. Related to Deep vein thrombosis (DVT) of right upper extremity, unspecified chronicity, unspecified vein Decrease Percocet to 2x/day. Continue to f/u with specialist. RTO 1month. Related to Hodgkin lymphoma, unspecified Hodgkin lymphoma type, unspecified body region Start Amoxicillin, P t advised of use and side effects Related to Cellulitis of chest wall Continue Eliquis. Related to Viola p vein thrombosis (DVT) of right upper extremity, unspecified chronicity, unspecified vein No treatment at this time. Relat ed to Tinea versicolor Continue current treatment Relat ed to CML (chronic myelocytic leukemia) Secondary to port on RT side of chest. this will be taken out in November. RTO PRN. Related to Pain, neck No treatment at this time. Relat ed to Gynecomastia Continue Protonix. Refilled. Rel ated to Gastroesophageal reflux disease, esophagitis presence not specified Continue zoloft. Refilled. Relat ed to Depression, unspecified depression type Pt was just picked u p Rx for Percocet 5days ago. He should have 20 tablets left. Related to Hodgkin lymphoma of lymph nodes of multiple regions, unspecified Hodgkin lymphoma type Continue f/u with Dr. Ceballos. Rel ated to Hodgkin lymphoma of lymph nodes of multiple regions, unspecified Hodgkin lymphoma type Minor suicidial idea tion but I feel pt is not suicidal at this time. Continue Zoloft. Refilled RTO 3mos Related to Depression, unspecified depression type Continue Zoloft. Refilled RTO 3m os. Related to FRANTZ (generalized anxiety disorder) Continue f/u with Dr. Ceballos. Rel ated to Chronic low back pain with sciatica, sciatica laterality unspecified, unspecified back pain laterality Discussed at length with pt that he cannot be getting pain medication from multiple providers. Informed pt if this happened again we would NOT manage his pain anymore. I will also do PDM 5 on pt. Will refill Percocet for one month. OARRS reviewed. Pt to RTO in one month. He has completed chemo and is currently doing radiation with Dr. Payne. He follows up with Dr. Ceballos on March 20. Related to Hodgkin lymphoma, unspecified Hodgkin lymphoma type, unspecified body region Discussed at length with pt that he cannot be getting pain medication from multiple providers. Informed pt if this happened again we would NOT manage his pain anymore. I will also do PDM 5 on pt. Will refill Percocet for one month. OARRS reviewed. Pt to RTO in one month. He has completed chemo and is currently doing radiation with Dr. Payne. He follows up with Dr. Ceballos on March 20. Related to Other chronic pain Discussed at length with pt that he cannot be getting pain medication from multiple providers. Informed pt if this happened again we would NOT manage his pain anymore. I will also do PDM 5 on pt. Will refill Percocet for one month. OARRS reviewed. Pt to RTO in one month. He has completed chemo and is currently doing radiation with Dr. Payne. He follows up with Dr. Ceballos on March 20. Related to Metastatic cancer to spine Discussed at length with pt that he cannot be getting pain medication from multiple providers. Informed pt if this happened again we would NOT manage his pain anymore. I will also do PDM 5 on pt. Will refill Percocet for one month. OARRS reviewed. Pt to RTO in one month. He has completed chemo and is currently doing radiation with Dr. Payne. He follows up with Dr. Ceballos on March 20. Related to Lumbago with sciatica, right side Pt doing well on Joan agus. Will refill his script today. Related to Multiple episodes of deep venous thrombosis, bilateral Pt has cut down on h is tobacco use since having chemo. He is currently using 1/2 PPD. He is hoping he can keep weaning himself down. Related to Tobacco abuse Will refill Percocet for one month. Script sent to [facility]. OARRS reviewed. Pt has completed his chemo treatments will Dr. Ceballos and will be starting radiation treatments soon with Dr. Payne. Related to Hodgkin lymphoma, unspecified Hodgkin lymphoma type, unspecified body region Will refill Percocet for one month. Script sent to [facility]. OARRS reviewed. Pt has completed his chemo treatments will Dr. Ceballos and will be starting radiation treatments soon with Dr. Payne. Related to Metastatic cancer to spine Will refill Percocet for one month. Script sent to [facility]. OARRS reviewed. Related to Lumbago with sciatica, right side Will refill Percocet for one month. Script sent to [facility]. OARRS reviewed. Related to Lumbago with sciatica, left side Will refill Percocet for one month. Script sent to [facility]. OARRS reviewed. Related to Other chronic pain Pt doing well on cur rent dose of Zoloft. Will send in refill of Zoloft. Related to Depression, unspecified depression type will change to Eliqu is, script sent to [facility] pharmacy. Discussed a GFF but he declines. Related to Multiple episodes of deep venous thrombosis, bilateral stopping coumadin to get him started on the eliquis 2.5 mg bID. Script sent to [facility]. meds and allergies reviewed. RTO in one month Related to On warfarin therapy increase the zoloft to 100 mg QD . Related to Chronic depression refilled Percocet ta bs to be used PRN for his back pain. Related to Mid back pain on right side the PET scan from 6 months ago showed mests to the bilateral scapula, thoracic, lumbar and sacral spines and ribs bilaterally. Related to Metastatic cancer to spine his last chemo treat ment is next week and then he begins rafation treatment. 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 RTO in one month. Related to Tinea corporis inrease the zoloft t o 1 1/2 tabs QD ( 75 mg QD). Related to Depression, acute the INR level is the rapeutic he will continue with every other day dosing of alternating 1 tab with half tab ( 5 mg alternates with 2.5 mg ) and repeat the INR in 2 weeks. Related to Acute embolism and thrombosis of left axillary vein refilled the percoce t as directed. OARRS check is up to date Related to Metastatic bone cancer the INR is still sub therapeutic. meds and allergies reviewedRTO in one month. Related to On warfarin therapy percocet tabs refill ed for his pain. OARRS check completed. Related to Pain he is still going through chemot herapy. Related to Hodgkin lymphoma of lymph nodes of multiple regions, unspecified Hodgkin lymphoma type the swelling and pain have decre ased. Related to Acute embolism and thrombosis of left axillary vein stop citalopram and start zoloft 50 mg QD. The proper use and side effects of the medication have been discussed. Related to Depression, acute Cleansed area prior to removing 3 sutures, applied sterile dressing. Related to Visit for suture removal Refilled medication Related to M etastatic bone cancer Continue current med icationsPT/INR ordered Related to DVT of left axillary vein, acute Continue current socrates atment with Dr. Ceballos. Related to Hodgkin lymphoma of lymph nodes of multiple regions, unspecified Hodgkin lymphoma type Patient to continue follow up with [facility]. Related to DVT of left axillary vein, acute Patient on pain medi cation. Citalopram was increased 8days ago to 40mg recommend waiting another week before adding medication. Patient may call in and we will order another medication. Related to FRANTZ (generalized anxiety disorder) refilld the percocet tas but changed the directions to 1 tab every 6 hrs as neede, Disp 100 tabs. meds and allergies revierwed. RTO as needed based on the above results. Related to Pain ordered a STAT doppl er of the left upper extremeity and will follow up with the results . Further plan of care will then be dleineatesd based on the results. Related to DVT of left axillary vein, acute increase the Citalop sean to 40 mg QD. Refill provided. Related to Depression, acute he ahs been under tr eatment of the oncologist Dr. Ceballos. Related to Hodgkin lymphoma of lymph nodes of multiple regions, unspecified Hodgkin lymphoma type pt to continue [facility] and doing chemo treatmentsrefilled pain meds and cyclobenzaprineOARRs was checked and is acceptable Related to Hodgkin lymphoma of lymph nodes of multiple regions, unspecified Hodgkin lymphoma type pt is to continue me dspt to call office when he is out for a refill Related to Chronic low back pain with sciatica, sciatica laterality unspecified, unspecified back pain laterality pt to start citalopr ampt to f/u as needed Related to FRANTZ (generalized anxiety disorder) pt to continue ling Ceballos and continue treatments Related to Hodgkin lymphoma of lymph nodes of multiple regions, unspecified Hodgkin lymphoma type pt is to f/u with Dr Brownpt has about 30 tabs of his percocets left, we will be refilling med today and date for next week Related to Hodgkin lymphoma of lymph nodes of multiple regions, unspecified Hodgkin lymphoma type giving pt percocet Related to Bi lateral low back pain without sciatica waiting for path report to come back Related to Lymphoma, unspecified body region, unspecified lymphoma type giving pt hydrocorsion Related t o Other eczema pt is to get x-rays done pt is to f/u with the cancer Doc pt is to get lab work done pt is to get a Ct scan done giving pt nroco Related to Metastatic cancer pt is to get lab wor k done pt is to get CT scan done pt is to f/u after test are done Related to Metastatic cancer Recommended that pt get Aleve OTC and take BID for pain. Prdered MRI today. Will f/u after MRI has been completed. Related to Lumbar herniated disc Assessments Type Assessment Date No Information Patient Care Teams Name Effective Dates (start - stop) Status Members No Information
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
--- OUTSIDE RECORDS SUMMARY | 2024-11-14 08:45 | XMS_ITS ---
Author Organization The [facility] in [place] Address [address] [place] [address] Care Team Providers Care Manager Truck Name Role Phone Britt Pelletier Primary Care Provider Tatyana Mosqueda [phone] REASON FOR VISIT MD José Luis Luis Encounters Encounter Location Date Provider Diagnosis [facility] [address] [place] [phone] 11/14/2024 Tatyana Roque Plan Of Treatment Next Appt Details Provider Name:Tatyana Roque, 12/21/2024 04:15:00 PM, [address] [place] [address], [phone], Progress Notes * Johan CARNES RDOB:[birth year] (44 yo M)Acc No.[id number]:11/14/2024 UNLOCKED PROGRESS NOTE Progress Notes Patient: Johan ETIENNE Provider: Lina Roque M.D. :1980 A ge:44 Y S ex:Male Date:11/14/2024 Address:[address] [place], [place] [phone] Pcp:Britt Pelletier Subjective: * Chief Complaints: * 1 . MD José Luis Luis. * Medical History: Objective: * Vitals: Assessment: Plan: * Treatment: * * Electronic signature of Baron Roque MD, [id number] on 11/24/2024 at 01:39 PM EDT Sign off status: Pending Visit Status: F AILEDMSG (Voice) * Provider: Lina Roque M.D. Date: 0 11/14/2024 Generated for Richard montesinos/Jordin/Jaycob on: 0 11/24/2024 01:39 PM EDT
--- OUTSIDE RECORDS SUMMARY | 2024-11-14 09:30 | XMS_ITS ---
Author Organization The [facility] in [place] Address [address] [place] [address] Care Team Providers Care Bowling Teacher Name Role Phone Britt Pelletier Primary Care Provider Unavailabl e Provider, Lab Unavailable [phone] Encounters Encounter Location Date Provider Diagnosis [facility] [address] [place] [phone] 11/14/2024 Lab Provider Plan Of Treatment Next Appt Details Provider Name:Tatyana Roque, 12/21/2024 04:15:00 PM, [address] [place] [address], [phone], Progress Notes * Johan CARNES RDOB:[birth year] (44 yo M)Acc No.[id number]:11/14/2024 UNLOCKED PROGRESS NOTE Progress Note Patient: Johan ETIENNE Provider: Tiffanie gilliland Provider :1980 A ge:44 Y S ex:Male Date:11/14/2024 Address:[address] [place] [phone] Pcp:Britt Pelletier Check In:01:27 PM ESTCheck O ut:01:45 PM EST Subjective: * Chief Complaints: * [address] * Medical History: Objective: * Vitals: Assessment: Plan: * Treatment: * * Electronic signature of Lab Provider on 11/24/2024 at 01:38 PM EDT Sign off status: Pending Visit Status: Sim BUNN (Check Out) * Provider: Tiffanie gilliland Provider Date: 0 11/14/2024 Generated for Richard montesinos/Jordin/Jaycob on: 11/24/2024 01:38 PM EDT
[2024-11-24 13:31] VITALS: BP 131/78; PULSE 100; TEMP 36.6; O2SAT 96; BMI 27.7
--- OUTSIDE RECORDS SUMMARY | 2024-11-24 13:38 | XMS_ITS | Encounter Summary ---
Author Organization [facility] Address [facility] [id number] [address] [place] [address] Care Team Providers Care Product Strategy Director Name Role Phone Unique Lu METER INSTALLER-PERMIT COORDINATOR Primary Care Provid er Encounter Details Date Type Department Care Team (Late Contact Info) Description 02/03/2023 Orders Only [facility] [address] [place] [address] [address] [address] Britt Pelletier MD [address], [place], [place] [phone] Social History Tobacco Use Types Packs/Day Years Used Date Smoking Tobacco: Every Day Cigarettes Smokeless Tobacco: Never Alcohol Use Standard Drinks/Week Comments Yes 0 (1 standard drink = 0.6 oz pur e alcohol) twice a month AUDIT-C Answer Date Recorded Frequency of Alcohol Consumption Never 07/11/2018 Average Number of Drinks Not on file 019 Frequency of Binge Drinking Not on file 06/16 PHQ-2 Answer Date Recorded Total Score 0 01/02/2023 Childcare Answer Date Recorded Childcare Unknown 11/24/2018 Employment Answer Date Recorded Employment Unknown 11/24/2018 Purpose - Life Answer Date Recorded Purpose and direction in life Unknown Sex and Gender Information Value Date Recorded Sex Assigned at Not on file Legal Sex Male 12:00 PM EDT Gender Identity Not on file Sexual Orientation Not on file documented as of this encounter Plan of Treatment Upcoming Encounters Date Type Department Care Team (Late Contact Info) Description 11/25/2024 9:30 AM EDT Hospital Encounter [facility] - Pet Imaging [address] [place] [phone] 12/15/2024 12:45 PM EDT Office Visit [facility] - Medical Oncology [address] [place] [phone] Sal Pham MD [address] [facility] [address] [place] [address] documented as of this encounter Visit Diagnoses Not on filedocumented in this encounter Additional Health Concerns Assessment Noted Time PHQ-9 Depression Total Score: 0 01/03/20 23 10:26 AM EDT documented as of this encounter Care Teams Product Strategy Director Relationship Specialty Start Date End Date Unique Lu APRN-PERMIT COORDINATOR [address] [place] [address] PCP - General Family Medicine 10/19/23 documented as of this encounter
--- OUTSIDE RECORDS SUMMARY | 2024-11-24 13:38 | XMS_ITS | Encounter Summary ---
Author Organization [employer] Address [id number] [address] [place] [address] Care Team Providers Care Railroad Track Inspector Name Role Phone Unique Lu APRN-FLIGHT FOLLOWER Primary Care Provid er Reason for Referral * Diagnostic Imaging (Routine) - Pending Review Specialty Diagnoses / Procedures Referred By Contac t Referred To Contact Radiology Diagnoses Pain Procedures NON [facility] PET [facility] WHOLE BODY [facility] [address] [place] [phone] Phone: tel: fax: Referral ID Status Reason Start Date Expiration Date V isits Requested Visits Authorized [id number] Pending Review 01/13/2024 01/12/2025 1 1 * Diagnostic Imaging (Routine) - Pending Review Specialty Diagnoses / Procedures Referred By Contac t Referred To Contact Radiology Diagnoses Pain Procedures NON [facility] PET [facility] WHOLE BODY [facility] [address] [place] [phone] Phone: tel: fax: Referral ID Status Reason Start Date Expiration Date V isits Requested Visits Authorized [id number] Pending Review 01/13/2024 01/12/2025 1 1 Encounter Details Date Type Department Care Team (Late st Contact Info) Description 01/13/2024 Orders Only [facility] [address] [place] [phone] External, Scanning Provider Pain (Primary Dx) Social History Tobacco Use Types Packs/Day Years Used Date Smoking Tobacco: Every Day Cigarettes Smokeless Tobacco: Never Alcohol Use Standard Drinks/Week Comments Not Currently 0 (1 standard drink = 0.6 oz pur e alcohol) AUDIT-C Answer Date Recorded Frequency of Alcohol Consumption Never 07/11/2018 Average Number of Drinks Not on file 019 Frequency of Binge Drinking Not on file 06/16 PHQ-2 Answer Date Recorded Total Score 0 12/15/2023 Childcare Answer Date Recorded Childcare Unknown 11/24/2018 Employment Answer Date Recorded Employment Unknown 11/24/2018 Hunger Screening Answer Date Recorded Within the past 12 months we worried whether our food would run out before we got money to buy more. Never True 12/15/2023 Within the past 12 months th e food we bought just didn't last and we didn't have money to get more. Never True 12/15/2023 Purpose - Life Answer Date Recorded Purpose [...] AM EDT Hospital Encounter [facility] - Pet Imaging [address] [place] [phone] 12/15/2024 12:45 PM EDT Office Visit J[facility]ita [facility] - Medical Oncology [address] [place] [phone] Sal Pham MD [address] [facility] [address] [place] [address] documented as of this encounter Results * NON [facility] WHOLE BODY (01/04/2024 1:20 PM EDT) us Scanning Provider External IMG PET ORDERABLES Fi nal Result * NON [facility] WHOLE BODY (08/12/2023 1:40 PM EST) us Scanning Provider External IMG PET ORDERABLES Fi nal Result documented in this encounter Visit Diagnoses Diagnosis Pain- Primary Generalized pain documented in this encounter Additional Health Concerns Assessment Noted Time PHQ-9 Depression Total Score: 0 12/15/19 1:49 PM EDT A Body Mass Index follow-up plan has been documented for the patient 12/16/2023 12:56 PM EDT documented as of this encounter Care Teams Railroad Track Inspector Relationship Specialty Start Date End Date Unique Lu, AIRPORT OPERATIONS OFFICER-FLIGHT FOLLOWER [address] [place] [address] PCP - General Family Medicine 10/19/23 documented as of this encounter
--- OUTSIDE RECORDS SUMMARY | 2024-11-24 13:38 | XMS_ITS | Encounter Summary ---
Author Organization [employer] Address [id number] [address] [place] [address] Care Team Providers Care Senior Financial Reporting Analyst Name Role Phone Unique Lu CONTRIBUTION SOLICITOR-FABRICATION LEAD Primary Care Provid er Encounter Details Date Type Department Care Team (Late st Contact Info) Description 08/17/2024 Orders Only [facility] Medical Oncology [address] [facility] [address] [place] [phone] Bina Johnson, RN Social History Tobacco Use Types Packs/Day Years [...] got money to buy more. Never True 02/01/2024 Within the past 12 months th e food we bought just didn't last and we didn't have money to get more. Never True 02/01/2024 Purpose - Life Answer Date Recorded Purpose [...] AM EDT Hospital Encounter [facility] [place] - Pet Imaging [address] [place] [address] 12/15/2024 12:45 PM EDT Office Visit [facility] - Medical Oncology [address] [place] [phone] Sal Pham MD [address] [facility] [address] [place] [address] documented as of this encounter Visit Diagnoses Not on filedocumented in this encounter Additional Health Concerns Assessment Noted Time PHQ-9 Depression Total Score: 0 12/15/19 1:49 PM EDT A Body Mass Index follow-up plan has been documented for the patient 07/25/2024 1:29 PM EST documented as of this encounter Care Teams Senior Financial Reporting Analyst Relationship Specialty Start Date End Date Unique Lu, CONTRIBUTION SOLICITOR-FABRICATION LEAD [address] [place] [address] PCP - General Family Medicine 10/19/23 documented as of this encounter
--- OUTSIDE RECORDS SUMMARY | 2024-11-24 13:38 | XMS_ITS | Encounter Summary ---
Author Organization [employer] Address [id number] [address] [place] [address] Care Team Providers Care Network Manager Name Role Phone Unique Lu Angelika LANEN-CHANNEL WORKER Primary Care Provid er Reason for Visit * Reason Onset Date Comments Med Refill 06/27/2024 Encounter Details Date Type Department Care Team (Late st Contact Info) Description 06/27/2024 Refill [facility] - [facility] Medicine [address] [place] [address] Jess Askew CMA Chronic pain syndrome; Chronic left hip pain Social History Tobacco Use Types Packs/Day Years [...] on file documented as of this encounter Miscellaneous Notes * Telephone Encounter - Maria Isabel Castro CMA - 06/27/2024 10:25 AM EST scheduled documented in this encounter Plan of Treatment Upcoming Encounters Date Type Department Care Team (Late st Contact Info) Description 11/25/2024 9:30 AM EDT Hospital Encounter [facility] - Pet Imaging [address] [place] [phone] 12/15/2024 12:45 PM EDT Office Visit [facility]ovita [facility] - Medical Oncology [address] [place] [phone] Sal Pham MD [address] [place] [address] [address] [place] [address] documented as of this encounter Visit Diagnoses Diagnosis Chronic pain syndrome Chronic left hip pain documented in this encounter Additional Health Concerns Assessment Noted Time PHQ-9 Depression Total Score: 0 12/15/19 24 1:49 PM EDT A Body Mass Index follow-up plan has been documented for the patient 12/16/2023 12:56 PM EDT documented as of this encounter Care Teams Network Manager Relationship Specialty Start Date End Date Unique Lu, COMPOSITE MECHANIC-CHANNEL WORKER [address] [place] [address] PCP - General Family Medicine 10/19/23 documented as of this encounter
--- OUTSIDE RECORDS SUMMARY | 2024-11-24 13:38 | XMS_ITS ---
Author Organization Address [address] [place] [address] Care Team Providers Care Workers Compensation Analyst Name Role Phone Ruy Gastelum MD, PhD Unavailable [phone] Lupis Bass () Unavailable [phone] Hannah Henson MD Unavailable [phone] Simran Ortiz APRN.INSURANCE APPRAISER Unavailable + Marialuisa Portillo RN Unavailable Unavail able Active Problems * This document contains information received from the source organization and may not represent a complete record from that organization. Patient Care Coordination No te Formatting of this note migh t be different from the original. Patient Summary: This is 38 year old male with PMHx significant for Hodgkin lymphoma s/p autologous stem cell transplant 02/04/17, now in complete remission confirmed by PET scan, HFrEF, IJ thrombosis 2/2 port (was on Eliquis), tobacco and illicit drug abuse (marijuana) who presented to an OSH with pleuritic CP and SOB. W/U revealed leukocytosis, lactic acidosis (3.7) and right sided pleural effusion/mucus plugging. He was transferred to [facility] d/t concern for sepsis possibly 2/2 PNA. Major Interval Events: 07/12: Admitted to MICU, slightly tachycardic (HR 112) normotensive (120/67), and hypoxic (91% on RA), A&Ox3, NAD, s/p 4L IVF, started on azithro and sayda, pleural effusion appears loculated on CT and US 07/13: No acute overnight events, blood cx + GPC x2 (06/16 showing strep pyogenes), afebrile, WBC downtrending (13K->11K), intermittently hypotensive overnight (MAPs in the high 60s), acute transaminitis 07/14: s/p VATs, 2 CT and 1 alexandra placed ~450cc total ouptut, no significant drop in hgb. Extubated this AM. Minimal pressor requirement. GPC growing in tissue culture as well. 07/15: No acute overnight events, CT output decreased from yesterday, most recent blood cx NG so far, off pressors since yesterday afternoon , afebrile, leukocytosis resolved Plan for Day: - Cont Abx (will d/c vanc and clinda, start Pen G and flagyl) - start bowel regimen - thoracic surgery following, appreciate recs Dispo: - Transfer to [facility] - Plan discussed with MICU team and attending Problem Noted Date Diagnosed Date Opioid contract exists 09/11/2023 Malnutrition of moderate degree 07/14/2018 Empyema 07/14/2018 Assessment & Plan (07/15/2018 11:10 AM EST): Right loculated effusion S/p VATs 07/13 - tissue culture with GPC in pairs 2 CTs and 1 alexandra - ~450cc output 1st 24h PLAN: - monitor CT output, keep CT to suction - thoracic recs - cont Abx Assessment & Plan (07/14/2018 12:56 PM EST): Right loculated effusion S/p VATs 07/13 - tissue culture with GPC in pairs 2 CTs and 1 alexandra - ~450cc output 1st 24h PLAN: - monitor CT output - thoracic recs - ABX as above Nicotine use disorder, F17.2 07/13/2018 HFrEF (heart failure with reduced ejection fract ion) 07/12/2018 Assessment & Plan (07/14/2018 12:48 PM EST): Assessment: last echo 03/01 showed EF 46%, grade 1 diastolic dysfunction, was on metop 25mg BID, repeat echo done 07/12 mostly unchanged from prior study PLAN: - hold off on BB for now d/t sepsis and transient hypotension, will resume when appropriate Assessment & Plan (07/13/2018 10:21 AM EST): Assessment: last echo 03/01 showed EF 46%, grade 1 diastolic dysfunction, was on metop 25mg BID, repeat echo done 07/12 mostly unchanged from prior study PLAN: - hold off on BB for now d/t sepsis and transient hypotension, will resume when appropriate Acute thrombosis of right axillary vein 07/12/19 19 Chronic thrombosis of right axillary vein 2018 Assessment & Plan (07/14/2018 12:50 PM EST): Assessment: CT-PE done at OSH: Irregularity of right axillary vein with multiple collaterals extending proximal to the site that could indicate venous stenosis or thrombosis, was started on heparin gtt at OSH, no DVTs seen on BUE dopplers (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) PLAN: - holding heparin s/p VATS 07/13 - SC heparin okay Assessment & Plan (07/13/2018 12:40 PM EST): Assessment: CT-PE done at OSH: Irregularity of right axillary vein with multiple collaterals extending proximal to the site that could indicate venous stenosis or thrombosis, was started on heparin gtt at OSH, no DVTs seen on BUE dopplers (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) PLAN: - 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 post auto transplant Chronic back pain 02/09/2017 Overview (02/10/2017): He did have lymphoma involvement in the spine and was treated with radiation but does not currently have active disease. --Currently taking oxycodone as prescribed by Dr. 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 Continue and watch with lower plt count. --Eliquis (02/03 stopped); --Eliquis Restarted at Discharge 02/15/2017 Attention deficit hyperactiv ity disorder (ADHD), combined type 12/29/2016 Overview (12/29/2016): Longstanding symptoms, not previously treated. Addition of Ritalin has led to noted improvement in sustained focus and psychomotor agitation. No adverse effects. Plan (12/29/16) Increase Ritalin to 20mg in the morning and 10mg in the early afternoon. Depression (emotion) 12/29/2016 Overview (02/10/2017): Symptoms of depression and irritability, more consistent with a dysthymia than major depressive disorder. Alternatively, mood symptoms may be sequelae of untreated ADHD. Seen by Dr. Bey Continue Zoloft 100mg daily Cannabis abuse, daily use 12/29/2016 Overview (01/28/2017): Longtime daily marijuana user, cutting down his use prior to transplant. As of 12/29/16, he is using a marijuana pipe and smoking two bowls a day. Cigarette smoker one half pack a day or less Overview (01/28/2017): Smoking 5-10 cigarettes/day. Sometimes supplementing cigarettes with chewing tobacco. Educated that chewing tobacco is also associated with increased risk of cancer. Blood clot due to device, implant, or graft 11/2016 Cancer associated pain 11/18/2016 Anxiety and depression 11/18/2016 Moderate smoker (20 or less per day) 11/18/2016 Hodgkin lymphoma 11/18/2016 Overview (02/02/2017): --06/2015- S/P 6 cycles of ABVD and radiation to pelvic LN and spine - biopsy in June confirmed relapse. - treated with 3 cycles of ICE (Jun-October/2016) and now in compete remission by PET scan Personal history of diseases of blood and blood-forming organs 11/18/2016 Current Treatment and Therapy Plans No current plan information found. Past Treatment and Therapy Plans Resolved Problems Problem Noted Date Diagnosed Date Resolved Date Bacteremia 07/13/2018 07/22/2018 Assessment & Plan (07/15/2018 11:10 AM EST): Assessment: Blood cx drawn here and at OSH + strep pyogenes Tissue culture from VATS with GPC in pairs Blood clutures from 07/13 - NGTD PLAN: - cont Abx Assessment & Plan (07/14/2018 12:51 PM EST): Assessment: Blood cx drawn here and at OSH + strep pyogenes Tissue culture from VATS with GPC in pairs Blood clutures from 07/13 - NGTD PLAN: - continue clinda, hold sayda and start vanco Assessment & Plan (07/13/2018 12:40 PM EST): Assessment: Blood cx drawn here and at OSH + strep pyogenes (possible empyema?) PLAN: - repeat blood cx - Cont azithro and sayda (may need to add clindamycin at some point) - VATS today per thoracic surgery Severe sepsis 07/12/2018 07/22/2018 Assessment & Plan (07/15/2018 11:07 AM EST): Assessment: OSH chest CT showed moderate size right effusion (loculated) with mucus plugging and atelectasis, still a c/f atypical PNA given stem cell transplant status (not on IS), blood cx + strep pyogenes (possible empyema?) S/p 3L NS at OSH, received 1L here at [facility], s/p Levaquin at OSH Group A strep Source control: Multiloculated right pleural effusion s/p VATS 07/13 PLAN: - d/c clinda - start Pen G and flagyl (07/15-*), will likely need 14 day regimen Assessment & Plan (07/14/2018 12:48 PM EST): Assessment: OSH chest CT showed moderate size right effusion (loculated) with mucus plugging and atelectasis, still a c/f atypical PNA given stem cell transplant status (not on IS), blood cx + strep pyogenes (possible empyema?) S/p 3L NS at OSH, received 1L here at [facility], s/p Levaquin at OSH Group A strep Source control: Multiloculated right pleural effusion s/p VATS 07/13 PLAN: - continue clinda, stop sayda and and vanco Assessment & Plan (07/13/2018 12:42 PM EST): Assessment: OSH chest CT showed moderate size right effusion (loculated) with mucus plugging and atelectasis, still a c/f atypical PNA given stem cell transplant status (not on IS), blood cx + strep pyogenes (possible empyema?) S/p 3L NS at OSH, received 1L here at [facility], s/p Levaquin at OSH PLAN: - repeat blood cultures - RVP, legionella Ag, strep pneumo Ag, galactomannan, fungal battery and sputum cx all pending - cont azithromycin and sayda (07/12-*) - consult allergy for PCN skin testing LUIZA (acute kidney injury) 07/12/2018 Assessment & Plan (07/14/2018 12:50 PM EST): Assessment: baseline Cr ~1, elevated to 1.5 at OSH- improved PLAN: - continue to monitor UOP and electrolytes Assessment & Plan (07/13/2018 10:10 AM EST): Assessment: baseline Cr ~1, elevated to 1.5 at OSH- improved PLAN: - continue to monitor UOP and electrolytes Pleural effusion on right 07/12/2018 Assessment & Plan (07/15/2018 11:09 AM EST): Assessment: noted on Chest CT done at OSH, loculated, possible empyema, s/p VATS 07/13, 3 chest tubes were placed PLAN: - cont Abx - keep CTs to suction - thoracic surgery following, appreciate recs Assessment & Plan (07/13/2018 12:43 PM EST): Assessment: noted on Chest CT done at OSH, loculated, possible empyema given + blood cx? PLAN: - VATS today per thoracic surgery Acute esophagitis 02/09/2017 02/13/2017 Overview (02/10/2017): mild throat pain --continue mouth care protocol --cepacol prn Central line complication 01/31/2017 Overview (02/10/2017): Upon admission, site of femoral catheter suspicions for infection (erythematous, tenderness, and drainage from site) --BCx3- NGTD, vanco x1 --improved, appears resolved Chemotherapy induced nausea and vomiting 01/28/2017 02/13/2017 Overview (02/10/2017): --PRN Ativan, zofran & Compazine (minimal use) Hodgkin's disease 11/18/2016 02/11/2017
--- OUTSIDE RECORDS SUMMARY | 2024-11-24 13:38 | XMS_ITS | Encounter Summary ---
Author Organization [facility] [employer] Address [id number] [address] [place] [address] Care Team Providers Care Diamond Grader Name Role Phone Unique Lu Angelika LANEN-ONSHORE DIVER Primary Care Provid er Encounter Details Date Type Department Care Team (Late st Contact Info) Description 01/15/2023 Telephone [facility] [address] [place] [address] Britt Pelletier MD [address], [place] [address] Social History Tobacco Use Types Packs/Day Years [...] encounter Miscellaneous Notes * Telephone Encounter - Christi Benitez - 01/15/2023 12:31 PM EDT January 15, 2023 Johan was scheduled today at 11:00am, he no showed for his appt, tried to call him back to but it said that his voice mail was full. Unable to leave a message Charged 25.00 fee for No Show/Cancellation documented in this encounter Plan of Treatment Upcoming Encounters Date Type Department Care Team (Late st Contact Info) Description 11/25/2024 9:30 AM EDT Hospital Encounter [facility] - Pet Imaging [address] [place] [address] 12/15/2024 12:45 PM EDT [facility] [address] [place] [phone] [place] [address] [place] [address] [address] [place] [address] documented as of this encounter Visit Diagnoses Not on filedocumented in this encounter Additional Health Concerns Assessment Noted Time PHQ-9 Depression Total Score: 0 01/03/20 23 10:26 AM EDT documented as of this encounter Care Teams Diamond Grader Relationship Specialty Start Date End Date Unique Lu, DANA-ONSHORE DIVER [address] [place] [address] PCP - General Family Medicine 10/19/23 documented as of this encounter
--- OUTSIDE RECORDS SUMMARY | 2024-11-24 13:38 | XMS_ITS | Encounter Summary ---
Author Organization [employer] Address [id number] [address] [place] [address] Care Team Providers Care Halfway House Counselor Name Role Phone Unique Lu Angelika LANEN-CONSTRUCTION SITE MANAGER Primary Care Provid er Encounter Details Date Type Department Care Team (Late st Contact Info) Description [facility]/04[facility] [address] [place] [phone] Jael Garces, JOAN Social History Tobacco Use Types Packs/Day Years [...] encounter Miscellaneous Notes * Telephone Encounter - Jael Garces CMA - 08/04/2024 2:57 PM EST Pts partner called stated pt is running a fever and none stop coughing wanted to know if you could send something in * Telephone Encounter - JUVE Cruz - 08/04/2024 2:57 PM EST I would rather him go to an urgent care or ER for further evaluation. He had influenza approximately one month ago * Telephone Encounter - Jael Garces CMA - 08/04/2024 2:57 PM EST I called partner and let hher know what you said she didn't seem to happy about that documented in this encounter Plan of Treatment Upcoming Encounters Date Type Department Care Team (Late st Contact Info) Description 11/25/2024 9:30 AM EDT Hospital Encounter [facility] - Pet Imaging [address] [place] [phone] 12/15/2024 12:45 PM EDT [facility] [address] [place] [phone] Sal Pham MD [address] [place] [address] [address] [place] [address] documented as of this encounter Visit Diagnoses Not on filedocumented in this encounter Additional Health Concerns Assessment Noted Time PHQ-9 Depression Total Score: 0 12/15/19 24 1:49 PM EDT A Body Mass Index follow-up plan has been documented for the patient 07/25/2024 1:29 PM EST documented as of this encounter Care Teams Halfway House Counselor Relationship Specialty Start Date End Date Unique Lu, SUPERVISORY AIR INTERCEPT CONTROLLER-CONSTRUCTION SITE MANAGER [address] [facility] [phone] PCP - General Family Medicine 10/19/23 documented as of this encounter
--- OUTSIDE RECORDS SUMMARY | 2024-11-24 13:38 | XMS_ITS | Encounter Summary ---
Author Organization [facility] Address [id number] [address] [place] [address] Care Team Providers Care Marketing Technology Specialist Name Role Phone Unique Lu Angelika LANEN-LAPEL PADDER Primary Care Provid er Encounter Details Date Type Department Care Team (Late st Contact Info) Description 01/27/2024 Orders Only [facility] - Family Medicine [address] [place] [address] Ref Prov, [place] [address] Social History Tobacco Use Types Packs/Day Years [...] Description 11/25/2024 9:30 AM EDT Hospital Encounter ProMshaggy [facility] - Pet Imaging [address] [place] [phone] 12/15/2024 12:45 PM EDT Office Visit Jovita Rand [facility] - Medical Oncology [address] [place] [phone] Sal Pham MD [address] [place] [address] documented as of this encounter Procedures Procedure Name Priority Date/Time Associated Diagnosis Comments VASC VENOUS DUPLEX LOWER RIGHT Routine 01/27/2024 4:19 PM EDT documented in this encounter Results * Vas venous duplex lwr single right (01/27/2024 4:19 PM EDT) Anatomical Region Laterality Modality Vascular Right Ultrasound us Not In System Ref Prov CV VASCULAR ORDERABLES Fi nal Result documented in this encounter Visit Diagnoses Not on filedocumented in this encounter Additional Health Concerns Assessment Noted Time PHQ-9 Depression Total Score: 0 12/15/19 24 1:49 PM EDT A Body Mass Index follow-up plan has been documented for the patient 12/16/2023 12:56 PM EDT documented as of this encounter Care Teams Marketing Technology Specialist Relationship Specialty Start Date End Date Unique Lu, CHICKEN TENDER-LAPEL PADDER [address] [place] [address] PCP - General Family Medicine 10/19/23 documented as of this encounter
--- OUTSIDE RECORDS SUMMARY | 2024-11-24 13:38 | XMS_ITS | Encounter Summary ---
Author Organization [facility] Address [id number] [address] [place] [address] Care Team Providers Care Pneumatic Tester Name Role Phone LuUnique long Angelika LANEN-VACUUM WORKER Primary Care Provid er Encounter Details Date Type Department Care Team (Late st Contact Info) Description 01/27/[address] [facility] Center - ENT [address] [place] [address] Betsey Frank MA Social History Tobacco Use Types Packs/Day Years [...] AM EDT Hospital Encounter [facility] - Pet Imaging [address] [place] [address] 12/15/2024 12:45 PM EDT Office Visit Jovita Rand [facility] - Medical Oncology [address] [place] [phone] [place] [address] [place] [address] [address] [place] [address] documented as of this encounter Visit Diagnoses Not on filedocumented in this encounter Additional Health Concerns Assessment Noted Time PHQ-9 Depression Total Score: 0 12/15/19 1:49 PM EDT A Body Mass Index follow-up plan has been documented for the patient 12/16/2023 12:56 PM EDT documented as of this encounter Care Teams Pneumatic Tester Relationship Specialty Start Date End Date Unique Lu, SAFETY LAMP KEEPER-VACUUM WORKER [address] [place] [address] PCP - General Family Medicine 10/19/23 documented as of this encounter
--- OUTSIDE RECORDS SUMMARY | 2024-11-24 13:38 | XMS_ITS | Clinical Summary ---
Author Organization [facility] Address [address] [place], [place] [address] Care Team Providers Care Qualitative Executive Researcher Name Role Phone Ruy Gastelum MD, PhD Unavailable [phone] Lupis Bass (Eitan) Unavailable [phone] Hannah Henson MD Unavailable [phone] Simran Ortiz APRN.CLINICAL LABORATORY ASSISTANT Unavailable + Marialuisa Portillo RN Unavailable Unavail able Allergies Active Allergy Reactions Criticality Noted Date Comments Amoxicillin Swelling Low 07/12/2018 Facial swelling; Negative penicillin skin testing on 07/14/18. Please see allergy consult note from that date. recommend test dosing PCN prior to administration. Sulfamethoxazole-Trimethopr im Hives 05/12/2016 Itching Patient denied any reaction history or allergy to Bactrim or Sulfa during history obtained on 07/14/18; please see Allergy consult note from that date for further details. Medications * This document contains information received from the source organization and may not represent a complete record from that organization. senna-docusate (SENNA-S) 8.6-50 mg per tabletIndications: Neoplasm related pain,Drug-induced constipation Take 1 tablet by mouth once daily. 30 tablet 3 08/11/19 24 Active ibuprofen (MOTRIN) 800 mg tablet Take 800 mg by mouth three times a day as needed. 12/15/19 24 Active cyclobenzaprine (FLEXERIL) 10 mg tablet Take 10 mg by mouth. 12/15/19 24 Active gabapentin (NEURONTIN) 300 mg capsule Take 1 capsule by mouth three times a day for 30 days. 90 capsule 01/22/20 24 Active naloxone 4 mg/actuation nasal spray (NARCAN) Use 1 spray in one nostril as needed for overdose. May repeat every 2 to 3 min in alternating nostrils until medical assistance is available 1 Each 1 01/22/20 24 Active buprenorphine (BUTRANS) 5 mcg/hourIndication s:Neoplasm related pain,Osteoarthriti s of spine, unspecified spinal osteoarthritis complication status, unspecified spinal region Apply 1 Patch as directed one time a week for 30 days. 4 Patch 01/22/20 24 Active Active Problems Patient Care Coordination No te Formatting of [...] pleural effusion/mucus plugging. He was transferred to [facility] d/t concern for sepsis possibly 2/2 PNA. [...] following, appreciate recs Dispo: - Transfer to [facility] - Plan discussed with MICU team [...] diseases of blood and blood-forming organs 11/18/2016 Resolved Problems Problem Noted Date Diagnosed Date [...] Compazine (minimal use) Hodgkin's disease 11/18/2016 02/11/2017 Encounters Date Type Department Care Team Description 09/14/2024 Telephone Hematology/Oncology [address] [place] [address] [place] [address] Rich Delgado MD Records faxed from Last 3 Months Immunizations Immunization Administration Dates Next Due Haemophilus influenzae b (Hi b PRP-OMP) vaccine, 3-dose series (PEDVAX HIB) 12/20/2018,09/10/2018,08/10/2018 hepatitis A-hepatitis B (Hep A-HepB) vaccine (TWINRIX) 12/20/2018,09/10/2018 influenza (IIV4) vaccine, ag e 6 mo - 64 yr, quadrivalent (AFLURIA, FLULAVAL, FLUZONE) 03/12/2017 influenza (IIV4) vaccine, ag e 6 mo - 64 yr, quadrivalent, PF (AFLURIA, FLUARIX, FLULAVAL, FLUZONE) 07/21/2018 pneumococcal conjugate (PCV1 3) vaccine, 13 valent (PREVNAR 13) 12/20/2018 pneumococcal polysaccharide (PPV23) vaccine, 23 valent (PNEUMOVAX 23) 07/21/2018 tetanus diphtheria (Td) vacc ine, age 7+ yr, 5 Lf tetanus, PF (TENIVAC) 12/20/2018 tetanus diphtheria pertussis (Tdap) vaccine, age 7+ yr (ADACEL, BOOSTRIX) 01/03/2021,09/10/2018,08/10/2018 zoster (RZV) vaccine, recomb inant (SHINGRIX) 12/20/2018,08/10/2018 Family History Medical History Relation Comments Cancer Father unknown - stomac h Multiple Sclerosis Maternal Aunt Diabetes Maternal Grandfather Heart Maternal Grandfather Hypertension Maternal Grandmother ulcers Maternal Grandmother Multiple Sclerosis Mother Cancer Sister 1 appendix and pos sible throat cancer Cancer Sister 2 uteran Relation Status Comments Father Maternal Aunt Maternal Grandfather Maternal Grandmother Mother Sister 1 Sister 2 Social History Tobacco Use Types Packs/Day Years Used Date Smoking Tobacco: Every Day Cigarettes 0.5 35 Started: 12/01/1989 Passive Smoke Exposure: Current Smokeless Tobacco: Former Chew Tobacco Cessation:Ready to Q uit: Not Asked; Counseling Given: Not Answered Comments:Patient now smokes about 5 a day as of 07/29/23 currently smoking 1/4 PPD as of 09/10/18 Alcohol Use Standard Drinks/Week Comments Yes 0 (1 standard drink = 0.6 oz pur e alcohol) twice per month - get drunk PHQ-2 Answer Date Recorded PHQ-2 score 0 08/17/2023 Area Deprivation Index Answer Date Alvin rded National Score (1-100), lower number is lower ri sk 67 07/29/2023 State Score (1-10), lower number is lower risk 5 07/29/2023 Data from: https://www.neighborhoodatlas.medicine.[facility].edu/. Last address used for calculation [address] [address] 07/29/2023 Sex and Gender Information Value Date Recorded Sex Assigned at Not on file Legal Sex Male 2:17 PM EST Gender Identity Not on file Sexual Orientation Not on file Last Filed Vital Signs Vital Sign Reading Time Taken Comments Blood Pressure 131/91 01/22/2024 3:14 PM EDT Pulse 99 01/22/2024 3:14 PM EDT Temperature 36.2 C (97.1 F) 01/22/2024 3:14 PM EDT Respiratory Rate 16 01/22/2024 3:14 PM EDT Oxygen Saturation 95% 01/22/2024 3:14 PM EDT Inhaled Oxygen Concentration - - Weight 102.2 kg (225 lb 3.2 oz) 01/22/2024 3:14 PM EDT Height 185.4 cm (6' 0.99 ) 01/22/2024 3:14 PM ED T Body Mass Index 29.72 01/22/2024 3:14 PM EDT Plan of Treatment Health Maintenance Due Date Last Done Comments HPV Vaccine: Recommended Bas ed On Risk 1979 Annual PCP Team Chronic Dise ase Visit 1997 Hepatitis B Vaccine (3 of 3 - Hep B Twinrix 3-dose series) 05/22/2019 12/20/2018, 09/10/2018 Covid-19 Vaccine (3 - Modern a risk series) 09/23/2021 08/26/2021, 07/15/2021 Pneumococcal Vaccine (3 of 3 - PPSV23, PCV20 or PCV21) 07/21/2023 12/20/2018, 07/21/2018 Lipid Screening 12/05/2023 12/04/2018, 12/08/2016 CT Colonography 2024 Cologuard (FIT-DNA) 2024 Colonoscopy 2024 Colorectal Cancer Screening 2024 Fecal Occult Blood 2024 Sigmoidoscopy 2024 Influenza Vaccine (Season Ended) 2025 07/21/19, 03/12/2017 Diabetes Screening 01/03/2027 01/04/2024, 0 08/12/2023, 11/29/2022, Additional history exists DTaP,Tdap,Td Vaccine (6 - Td or Tdap) 01/03/2031 01/03/2021, 12/20/2018, 09/10/2018, Additional history exists HIV Screening Completed 01/19/2017, 11/13, 11/17/2016 Shingrix Vaccine Completed 12/20/2018, 08/10/2018 Hepatitis C Screening Completed 08/12/2023, 024 Procedures Procedure Name Priority Date/Time Associated Diagnosis Comments COMPREHENSIVE METABOLIC PANEL Routine 01/04/2024 11:57 AM EDT 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) Abnormal finding on imaging HEPATITIS C ANTIBODY IA WITH CONFIRMATION Routine 08/12/2023 12:52 PM EST s/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) IDM PANEL ADULT Routine 01/19/2017 2:35 PM EDT 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) LIPID PANEL, FASTING Routine 12/08/2016 9:51 AM EDT 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) from Last 3 Months or Most Recently Relevant to Health Maintenance Results * (ABNORMAL) COMPREHENSIVE METABOLIC PANEL (01/04/2024 11:57 AM EDT) Pathologist [facility] Protein, Total 7.2 6.3 - 8.0 g/dL 01/04/2024 12:28 PM EDT [facility] Albumin 4.8 3.9 - 4.9 g/dL 01/04/2024 12:28 PM EDT [facility] Calcium, Total 10.0 8.5 - 10.2 mg/dL 01/04/2024 12:28 PM EDT [facility] Bilirubin, Total 0.3 0.2 - 1.3 mg/dL 01/04/2024 12:28 PM EDT [facility] Alkaline Phosphatase 103 38 - 113 U/L 01/04/2024 12:28 PM EDT [facility] AST 24 14 - 40 U/L 01/04/2024 12:28 PM EDT [facility] ALT 53 10 - 54 U/L 01/04/2024 12:28 PM EDT [facility] Glucose 92 74 - 99 mg/dL 01/04/2024 12:28 PM [facility] Comment: The [place] Diabetes Association (ADA) provides guidance for cutoff values for fasting glucose and random glucose. The ADA defines fasting as no caloric intake for at least 8 hours. Fasting plasma glucose results between 100 to 125 mg/dL indicate increased risk for diabetes (prediabetes). Fasting plasma glucose results greater than or equal to 126 mg/dL meet the criteria for diagnosis of diabetes. In the absence of unequivocal hyperglycemia, results should be confirmed by repeat testing. In a patient with classic symptoms of hyperglycemia or hyperglycemic crisis, random plasma glucose results greater than or equal to 200 mg/dL meet the criteria for diagnosis of diabetes. Reference: Standards of Medical Care in Diabetes 2016, [place] Diabetes Association. Diabetes Care. 2016.39(Suppl 1). BUN 18 9 - 24 mg/dL 01/04/2024 12:28 PM [facility] Creatinine 1.23(H) 0.73 - 1.22 mg/dL 01/04/2024 12:28 PM [facility] Sodium 141 136 - 144 mmol/L 01/04/2024 12:28 PM [facility] Potassium 4.4 3.7 - 5.1 mmol/L 01/04/2024 12:28 PM [facility] Chloride 103 98 - 107 mmol/L 01/04/2024 12:28 PM [facility] CO2 28 22 - 30 mmol/L 01/04/2024 12:28 PM [facility] Anion Gap 10 8 - 15 mmol/L 01/04/2024 12:28 PM [facility] Estimated Glomerular Filtration Rate 74 >=60 mL/min/1. 73m 01/04/2024 12:28 PM [facility] Comment:Estimated Glomerular Filtration Rate (eGFR) is calculated using the 2020 CKD-EPI creatinine equation. This equation utilizes serum creatinine, sex, and age as parameters. The creatinine assay has traceable calibration to isotope dilution- mass spectrometry. Refer to KDIGO guidelines for clinical interpretation. In patients with unstable renal function, e.g. those with acute kidney injury, the eGFR may not accurately reflect actual GFR. Blood BLOOD SPECIMEN / Unknown Venipuncture / Unknown 01/04/2024 11:57 AM EDT 01/04/2024 12:06 PM EDT us Rich Delgado MD LABORATORY Final Result [facility] [address] [place] [address] * HEPATITIS C ANTIBODY IA WITH CONFIRMATION (08/12/2023 12:52 PM EST) Pathologist [facility] Hep C Antibody IA Negative Negative 08/13/2023 1:04 PM EST [facility] Comment:The result suggests no evidence of active infection with Hepatitis C virus. Should recent infection be suspected, repeat testing may be considered 4-6 weeks after this draw. Blood BLOOD SPECIMEN / Unknown Venipuncture / Unknown 08/12/2023 12:52 PM EST 08/12/2023 12:52 PM EST us Rich Delgado MD LABORATORY Final Result [facility] [address] [address], [place] * IDM PANEL ADULT (01/19/2017 2:35 PM EDT) Pathologist [facility] HBsAg Negative or Nonreactive Negative or Nonreactive 01/22/2017 8:45 AM EDT [facility] anti-HCV Negative or Nonreactive Negative or Nonreactive 01/22/2017 8:45 AM EDT [facility] anti-HIV1/2 Negative or Nonreactive Negative or Nonreactive 01/22/2017 8:45 AM EDT [facility] anti-HBc Negative or Nonreactive Negative or Nonreactive 01/22/2017 8:45 AM EDT [facility] anti-HTLV I/II Negative or Nonreactive Negative or Nonreactive 01/22/2017 8:45 AM EDT [facility] STS Negative or Nonreactive Negative or Nonreactive 01/22/2017 8:45 AM EDT [facility] CMV Negative or Nonreactive Negative or Nonreactive 01/22/2017 8:45 AM EDT [facility] HIVNAT Negative or Nonreactive Negative or Nonreactive 01/22/2017 8:45 AM EDT [facility] HCVNAT Negative or Nonreactive Negative or Nonreactive 01/22/2017 8:45 AM EDT [facility] HBVNAT Negative or Nonreactive Negative or Nonreactive 01/22/2017 8:45 AM EDT [facility] WNVNAT Negative or Nonreactive Negative or Nonreactive 01/22/2017 8:45 AM EDT [facility] [place] Negative or Nonreactive Negative or Nonreactive 01/22/2017 8:45 AM EDT [facility] Expiration of IDM [id number] 01/22/2017 8:45 AM EDT [facility] Comment: Test kits are FDA approved for Donor Screening Testing. Test performed by: [facility], [address] [place] [address], CLIA No. [id number]. Blood specimen (specimen) BLOOD SPECIMEN / Unknown 01/19/2017 2:35 PM EDT 01/19/2017 2:50 PM EDT us Ruy Gastelum MD, PhD LABORATORY Final Resul t [facility] [address] [place] [address] * (ABNORMAL) LIPID PANEL BASIC (12/08/2016 9:51 AM EDT) Triglyceride 122 30 - 149 mg/dL 12/08/2016 11:42 AM EDT [facility] Cholesterol, Total 219(H) 100 - 199 mg/dL 12/08/2016 11:42 AM EDT [facility] HDL Cholesterol 52 >45 mg/dL 7 11:42 AM EDT [facility] VLDL Cholesterol 24 6 - 40 mg/dL 12/08/2016 11:42 AM EDT [facility] LDL Cholesterol, Calculated 143(H) 60 - 129 mg/dL 12/08/2016 11:42 AM EDT [facility] Fasting Time 12 hrs 12/08/2016 9:53 AM EDT [facility] TC:HDL Ratio 4.21 1.00 - 5.00 12/08/2016 11:42 AM EDT [facility] LDL:HDL Ratio 2.75 0.50 - 3.55 12/08/2016 11:42 AM EDT [facility] Non HDL Cholesterol 167(H) 90 - 159 mg/dL 12/08/2016 11:42 AM EDT [facility] Blood specimen (specimen) BLOOD SPECIMEN / Unknown 12/08/2016 9:51 AM EDT 12/08/2016 9:53 AM EDT Hannah Henson MD LABORATORY Final Result [facility] [address] [place] [address] from Last 3 Months or Most Recently Relevant to Health Maintenance Insurance [place] [employer] Advance Directives Documents on File Type Date Recorded Patient Director Of Hospitality Expl anation Advance Directive(s) 11/19/2016 3:00 PM Care Teams Qualitative Executive Researcher Relationship Specialty Start Date [place] [address] [place] [address] Physician Blood and Marrow Transplant 11/17/16 Lupis Bass () [address] [place], [place] [phone] Clinical Neuropsychologist Blood and Marrow Transplant 01/07/17 Hannah Henson MD [address] [place], [place] [phone] Primary Staff Physician Cardiology 08/31/18 Simran Ortiz, CHANCELLOR.[facility] [address] [place] [address] [place] [address] Hospice & Palliative Medicine 08/19/23 Marialuisa Portillo, RN Specialty Guest Advisor Hospice & Palliative Medicine 08/19/23
--- OUTSIDE RECORDS SUMMARY | 2024-11-24 13:39 | XMS_ITS | Encounter Summary ---
Author Organization [facility] Address [id number] [address] [place] [address] Care Team Providers Care Improvement Coordinator Name Role Phone Unique Lu Angelika LANEN-OCEAN CLAM BOAT CAPTAIN Primary Care Provid er Encounter Details Date Type Department Care Team (Late st Contact Info) Description 05/22/2023 Orders Only [facility] [address] [place] [address] Britt Pelletier MD [address], [place] [address] Social History Tobacco Use Types [...] 06/16 PHQ-2 Answer Date Recorded Total Score 10 05/21/2023 Childcare Answer Date Recorded Childcare Unknown 11/24/2018 Employment Answer Date Recorded Employment Unknown 11/24/2018 Hunger Screening Answer Date Recorded Within the past 12 months we worried whether our food would run out before we got money to buy more. Never True 05/21/2023 Within the past 12 months th e food we bought just didn't last and we didn't have money to get more. Never True 05/21/2023 Purpose - Life Answer Date Recorded Purpose [...] AM EDT Hospital Encounter [facility] - Pet Imaging [address] [place] [phone] 12/15/2024 12:45 PM EDT [facility] [address] [place] [phone] Sal Pham MD [address] [place] [address] documented as of this encounter Visit Diagnoses Not on filedocumented in this encounter Additional Health Concerns Assessment Noted Time PHQ-9 Depression Total Score: 10 023 1:31 PM EST documented as of this encounter Care Teams Improvement Coordinator Relationship Specialty Start Date End Date Unique Lu, ROOFING MACHINE TENDER-OCEAN CLAM BOAT CAPTAIN [address] [place] [address] PCP - General Family Medicine 10/19/23 documented as of this encounter
--- OUTSIDE RECORDS SUMMARY | 2024-11-24 13:39 | XMS_ITS | Patient Health Record ---
Author Organization [facility] vices Address [address] [place], [place] [address] Support Name Relationship Address Phone [facility] , [place] [phone] Johan Seay Guarantor Unknown [phone] Reason For Referral No Information Social History Sex Assigned At : Social History Observation Description Sex Assigned At Male Problems Problem Type SNOMED Code ICD Code Onset Dates Problem Status W/U Status Risk Notes Problem Generalized aches and pains (67653740) Body aches (R52) Active confirmed Comment:Pain medication ordered and patient instructed to take as needed every 4-6 hours. Patient verbalized and agrees with plan of care,Descripti on:Generalized pain Problem LBP (low back pain) (M54.50) Active confirmed Comment:Patien t instructed to take medications as prescribed. Return if symtoms worsen. Will refer patient to pain management for chronic low back pain. Patient verbalizes and agrees with plan of care. Follow up after appointment with specialist.,De scription:Low back pain Plan Of Treatment No Information Insurance Providers Payer Name Payer Address Payer Phone Subscriber Number Group Number Insured Name Patient Relationship to Insured Coverage Start Date Coverage End Date Medicaid [address] [place] [address] [phone] [id number] Johan Seay Self - patient is the insured Medical (General) History Surgical History Surgery Date(Month/Year) Appendectomy, ProblemStatus: Active,
--- OUTSIDE RECORDS SUMMARY | 2024-11-24 13:40 | XMS_ITS | Clinical Summary ---
Author Organization [employer] tem Address [id number] [address] [place] [address] Care Team Providers Care Adjuster Leader Name Role Phone Unique Lu Angelika CELL TESTER-FINISH GRINDER Primary Care Provid er Allergies Active Allergy Reactions Criticality Noted Date Comments Amoxicillin Low 07/11/2018 Contact Metal Agent Itching,Rash Low 01/03/2021 Sulfamethoxazole Hives Low 01/12/2013 Medications cyclobenzaprine (FLEXERIL) 10 mg tabletIndicatio ns:Muscle spasm Take 1 tablet (10 mg total) by mouth 2 (two) times a day as needed for muscle spasms. 40 tablet 2 12/15/19 24 Active lidocaine (LIDODERM) 5 %Indications:Ch ronic pain syndrome,Chroni c left hip pain Place 1 patch on the skin daily. Remove & Discard patch within 12 hours 30 patch 2 01/19/20 24 Active aspirin 81 mg Take 1 tablet (81 mg total) by mouth in the morning. Last dose 01/30/24. Active albuterol sulfate 90 mcg/actuation aerosol powdr breath activated 07/17/19 25 Active paliperidone (INVEGA) 6 mg 24 hr tablet 06/01/20 24 Active sildenafiL (VIAGRA) 50 mg tabletIndicatio ns:Drug-induced erectile dysfunction Take 1 tablet (50 mg total) by mouth daily as needed for erectile dysfunction. 10 tablet 2 07/25/19 25 Active benzonatate (TESSALON PERLES) 100 mg capsule prn 08/05/19 25 Active traZODone (DESYREL) 50 mg tablet prn 09/27/19 25 Active gabapentin (NEURONTIN) 300 mg capsuleIndicati ons:Chronic midline low back pain with sciatica, sciatica laterality unspecified Take 1 capsule (300 mg total) by mouth 3 (three) times a day. 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 01/27/2024 Abnormal findings on imaging test 01/27/2024 Adenotonsillar hypertrophy 01/27/2024 Tonsillitis 01/27/2024 Cocaine abuse 10/19/2023 Lymphoma 10/19/2023 Right-sided sensory deficit present 10/19/2023 Stroke determined by clinical assessment 019 Pneumonia due to infectious organism 07/22/2018 Empyema 07/14/2018 Overview (10/19/2023): Last Assessment & Plan: Right loculated effusion S/p VATs 07/13 - tissue culture with GPC in pairs 2 CTs and 1 alexandra - ~450cc output 1st 24h PLAN: - monitor CT output, keep CT to suction - thoracic recs - cont Abx Acute thrombosis of right axillary vein 07/12/19 19 Chronic thrombosis of right axillary vein 2018 Overview (10/19/2023): Last Assessment & Plan: Assessment: CT-PE done at OSH: Irregularity of right axillary vein with multiple collaterals extending proximal to the site that could indicate venous stenosis or thrombosis, was started on heparin gtt at OSH, no DVTs seen on BUE dopplers (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) PLAN: - holding heparin s/p VATS 07/13 - SC heparin okay HFrEF (heart failure with reduced ejection fract ion) 07/12/2018 Overview (10/19/2023): Last Assessment & Plan: Assessment: last echo 03/01 showed EF 46%, grade 1 diastolic dysfunction, was on metop 25mg BID, repeat echo done 07/12 mostly unchanged from prior study PLAN: - hold off on BB for now d/t sepsis and transient hypotension, will resume when appropriate 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 --Currently taking oxycodone as prescribed by Dr. Ceballos --02/09: increased back pain; will add tylenol prn --02/10 Improved Chronic systolic CHF (congestive heart failure) 02/09/2017 Overview (10/19/2023): Echo (11/18) ejection fraction 44% with global mild hypokinesis and normal appearing RV --Followed by cards outpatient; stress echo treadmill (12/08)-> No significant change from TTE --started on metoprolol 12.5mg daily --will need f/u appt. 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 Continue and watch with lower plt count. --Eliquis (02/03 stopped); --Eliquis Restarted at Discharge 02/15/2017 Attention deficit hyperactiv ity disorder (ADHD), combined type 12/29/2016 Overview (10/19/2023): Longstanding symptoms, not previously treated. Addition of Ritalin has led to noted improvement in sustained focus and psychomotor agitation. No adverse effects. Plan (12/29/16) Increase Ritalin to 20mg in the morning and 10mg in the early afternoon. Cannabis abuse, daily use 12/29/2016 Overview (10/19/2023): Longtime daily marijuana user, cutting down his use prior to transplant. As of 12/29/16, he is using a marijuana pipe and smoking two bowls a day. Cigarette smoker one half pack a day or less Overview (10/19/2023): Smoking 5-10 cigarettes/day. Sometimes supplementing cigarettes with chewing tobacco. Educated that chewing tobacco is also associated with increased risk of cancer. Anxiety and depression 11/18/2016 Blood clot due to device, implant, or graft 11/2016 Cancer associated pain 11/18/2016 Hodgkin lymphoma 11/18/2016 Overview (10/19/2023): --06/2015- S/P 6 cycles of ABVD and radiation to pelvic LN and spine - biopsy in June confirmed relapse. 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) 11/11/2024 Orders Only [facility] - Medical Oncology [address] [place] [phone] Altagracia Brown, SANDRA 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) (Primary Dx); 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) 11/11/2024 Travel 11/01/2024 Telephone [facility] Department of [facility] [address] [facility] [address] [place] [address] Lea Olsen Referral 10/26/2024 Orders Only [facility] - Family Medicine [address] [place] [address] Unique Lu APRN-HERACLIO 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) (Primary Dx); 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) 10/26/2024 Telephone [facility] - Family Medicine [address] [place] [address] Cara Hernandez CMA 10/20/2024 3:40 PM EDT Office Visit [facility] [address] [place] [phone] Unique Lu APRN-HERACLIO Chronic midline low back pain with sciatica, sciatica laterality unspecified (Primary Dx); Right rotator cuff tear arthropathy 10/20/2024 Travel 09/26/2024 [facility]phone [facility] [place] [phone] External, Scanning Provider 09/13/2024 Documentation [facility] Medical Oncology [address] [place] [phone] Bina Johnson, SANDRA from Last 3 Months Immunizations Immunization Administration Dates Next Due Hep A / Hep B 12/20/2018,09/10/2018 Hib (PRP-OMP) 12/20/2018,09/10/2018,08/10/2018 Influenza, Injectable, Quadrivalent 03/12/2017 Influenza, Injectable, quadr ivalent (PF) 07/21/2018 Pneumococcal Conjugate 13-Valent 12/20/2018 Pneumococcal Polysaccharide 07/21/2018 Td (adult), 5 Lf tetanus tox oid, preservative free, adsorbed 12/20/2018 Tdap 01/03/2021, 9,08/10/2018,08/31 Zoster Vaccine Recombinant 12/20/2018,08/10/2018 Family History Medical History Relation Name Comments Cancer Father Cancer Mother Diabetes Mother Pancreatic cancer Mother Anesthesia problems Neg Hx Relation Name Status Comments Father Mother Alive Social History Tobacco Use Types Packs/Day Years [...] Mass Index 27.9 11/11/2024 8:43 AM EDT Plan of Treatment Upcoming Encounters Date Type Department Care Team (Late st Contact Info) Description 11/25/2024 9:30 AM EDT Hospital Encounter [facility] - Pet [facility] [address] [place] [address] 12/15/2024 12:45 PM EDT Office Visit [facility] - Medical Oncology [address] [place] [phone] Sal Pham MD [address] [facility] [address] [place] [phone] Health Maintenance Due Date Last Done Comments Tobacco Counseling 1980 COVID-19 Vaccine (3 - Modern a risk series) 09/23/2021 08/26/2021, 07/15/2021 Influenza Vaccine 02/13/2025 07/21/2018, 03/12/2017 Adult BMI Follow Up Plan 10/20/2025 10/20/2024 Depression Screening 10/20/2025 10/20/2024 Adult BMI Screening 11/11/2025 11/11/2024 Tobacco Screening 11/11/2025 11/11/2024 DTaP,Tdap and Td Vaccines (6 - Td or Tdap) 01/03/2031 01/03/2021, 12/20/2018, 09/10/2018, Additional history exists Medical Devices Not on file Insurance [address] [address] MEDICAID [facility] MEDICAID Care Teams Adjuster Leader Relationship Specialty Start Date End Date Unique Lu, DANA-FINISH GRINDER [address] [place] [phone] PCP - General Family Medicine 10/19/23
--- OUTSIDE RECORDS SUMMARY | 2024-11-24 13:40 | XMS_ITS | Encounter Summary ---
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) Procedures PET CT skull to thigh Sal Pham MD [address] [facility] [address] [place] [phone] Phone: tel: fax: Referral ID Status Reason Start Date Expiration Date V isits Requested Visits Authorized [id number] Authorized 11/11/2024 11/11/2025 1 1 Encounter Details Date Type Department Care Team (Late st Contact Info) Description 11/11/2024 Orders Only [facility] - Medical Oncology [facility] [place] [phone] Altagracia Brown, SANDRA 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 F/u in 4 weeks. Biopsy if needed. AVS and calendar given to patient upon discharge documented in this encounter Plan of Treatment Upcoming Encounters Date Type Department Care Team (Late st Contact Info) Description 11/25/2024 9:30 AM EDT Hospital Encounter [facility] - Pet Imaging [address] [place] [phone] 12/15/2024 12:45 PM EDT Office Visit [facility] - Medical Oncology [address] [place] [phone] Sal Pham MD [address] [facility] [address] [place] [address] Scheduled Orders Name Type Priority Associated Diagnoses Orde r Schedule CBC with auto diff Lab Routine 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) 1 Occurrences starting 11/11/2024 until 11/11/2025 Comprehensive metabolic panel Lab Routine 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) 1 Occurrences starting 11/11/2024 until 11/11/2025 Erythrocyte Sedimentation Rate (ESR) Lab Routine 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) 1 Occurrences starting 11/11/2024 until 11/11/2025 Uric acid Lab Routine 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) 1 Occurrences starting 11/11/2024 until 11/11/[address] skull to thigh Imaging Routine 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) Expected: 11/11/2024, Expires: 11/11/2025 documented as of this encounter Visit Diagnoses Diagnosis 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)- Primary 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
--- OUTSIDE RECORDS SUMMARY | 2024-11-24 13:40 | XMS_ITS | Encounter Summary ---
Author Organization [employer] Address [id number] [address] [place] [address] Care Team Providers Care Sheriff'S Sergeant Name Role Phone Unique Lu Angelika LANEN-RELATIONSHIP EXECUTIVE Primary Care Provid er Encounter Details Date Type Department Care Team (Late st Contact Info) Description 10/26/2024 [facility]phone [facility] [address] [place] [phone] Cara Hernandez, JOAN Social History Tobacco Use Types Packs/Day [...] encounter Miscellaneous Notes * Telephone Encounter - Cara Hernandez CMA - 10/26/2024 12:40 PM EDT Pt wants to go to Dr. [facility] in [place] for his cancer care. Pt's partner Naida called in stating this. * Telephone Encounter - JUVE Cruz - 10/26/2024 12:40 PM EDT done documented in this encounter Plan of Treatment Upcoming Encounters Date Type Department Care Team (Late st Contact Info) Description 11/25/2024 9:30 AM EDT Hospital Encounter [facility] - Pet Imaging [address] [place] [phone] 12/15/2024 12:45 PM EDT Office Visit [facility] - Medical Oncology [address] [place] [phone] Sal Pham MD [address] [place] [address] [address] [place] [address] documented as of this encounter Visit Diagnoses Not on filedocumented in this encounter Additional Health Concerns Assessment Noted Time PHQ-9 Depression Total Score: 0 10/21/19 25 3:36 PM EDT A Body Mass Index follow-up plan has been documented for the patient 10/24/2024 1:22 PM EDT documented as of this encounter Care Teams Sheriff'S Sergeant Relationship Specialty Start Date End Date Unique Lu APRN-CNP [address] [place] [phone] PCP - General Family Medicine 10/19/23 documented as of this encounter
--- OUTSIDE RECORDS SUMMARY | 2024-11-24 13:40 | XMS_ITS | Patient Health Record ---
Author Organization [facility] in [place] Address [address] [place] [address] Care Team Providers Care Tentering Machine Off Bearer Name Role Phone PrabhuBritt Primary Care Provider Unavailabl e Provider, Lab Unavailable [phone] Tatyana Roque Unavailable [phone] Results Component Value Reference Range Notes VITAMIN B12 LEVEL (COBALAMIN ) (Not yet reviewed by provider) Interpretation: Performing Lab:[facility], [address] [place], [address] [phone] Notes/Report: 7SST 1TB 1NAHEP 1LAV FACILITY: [facility] [id number] VITAMIN B-12 577 (239 - 931) PG/ML [id number] IGG,IGA, and IGM (Not yet reviewed by provider) Interpretation: Performing Lab:CB, [facility] Chli[address] [facility], [facility] [place] HospitalUpciRD[address] Meño Johns Notes/Report: FASTING:UNKNOWN FASTING: UNKNOWN B2 GLYCOPROTEIN I (IGG)AB <2.0 Value Interpretation ----- < 20.0 Antibody not detected > or = 20.0 Antibody detected The antiphospholipid antibody syndrome (APS) is a clinical-pathologic correlation that includes a clinical event (e.g. arterial or venous thrombosis, morbidity) and persistent positive antiphospholipid antibodies (IgM, IgG Cardiolipin or b2GPI antibodies greater than the 99th percentile; or a lupus anticoagulant). International consensus guidelines for APS suggest waiting at least 12 weeks before retesting to confirm antibody persistence. The [facility] immunological classification criteria for systemic lupus erythematosus (SLE) include testing for isotype IgA, which has yet to be incorporated into APS criteria. Low level antiphospholipid antibodies may sometimes be detected in the setting of infection, drug therapy or aging. For additional information, please refer to http://Honestly.com.GreenLancer/faq/HIS355 (This link is being provided for informational/ educational purposes only.) B2 GLYCOPROTEIN I (IGM)AB <2.0 Value Interpretation ----- < 20.0 Antibody not detected > or = 20.0 Antibody detected The antiphospholipid antibody syndrome (APS) is a clinical-pathologic correlation that includes a clinical event (e.g. arterial or venous thrombosis, morbidity) and persistent positive antiphospholipid antibodies (IgM, IgG Cardiolipin or b2GPI antibodies greater than the 99th percentile; or a lupus anticoagulant). International consensus guidelines for APS suggest waiting at least 12 weeks before retesting to confirm antibody persistence. The [facility] immunological classification criteria for systemic lupus erythematosus (SLE) include testing for isotype IgA, which has yet to be incorporated into APS criteria. Low level antiphospholipid antibodies may sometimes be detected in the setting of infection, drug therapy or aging. For additional information, please refer to http://Honestly.com.GreenLancer/faq/BAO938 (This link is being provided for informational/ educational purposes only.) B2 GLYCOPROTEIN I (IGA)AB <2.0 Value Interpretation ----- < 20.0 Antibody not detected > or = 20.0 Antibody detected The antiphospholipid antibody syndrome (APS) is a clinical-pathologic correlation that includes a clinical event (e.g. arterial or venous thrombosis, morbidity) and persistent positive antiphospholipid antibodies (IgM, IgG Cardiolipin or b2GPI antibodies greater than the 99th percentile; or a lupus anticoagulant). International consensus guidelines for APS suggest waiting at least 12 weeks before retesting to confirm antibody persistence. The [facility] immunological classification criteria for systemic lupus erythematosus (SLE) include testing for isotype IgA, which has yet to be incorporated into APS criteria. Low level antiphospholipid antibodies may sometimes be detected in the setting of infection, drug therapy or aging. For additional information, please refer to http://education.Briefcase.com/faq/TFW524 (This link is being provided for informational/ educational purposes only.) HEPATITIS B CORE AB, TOTAL ( Not yet reviewed by provider) Interpretation: Performing Lab:[facility], [address] [place], [address] Notes/Report: 7SST 1TB 1NAHEP 1LAV FACILITY: [facility] [id number] HEP B CORE AB NEG (NEG - NEG) HEPATITIS B CORE AB, IGM (No t yet reviewed by provider) Interpretation: Performing Lab:[facility], [address] [place], [address] [phone] Notes/Report: 7SST 1TB 1NAHEP 1LAV FACILITY: [facility] [id number] HEPATITIS B CORE ANTIBODY, IGM NEG (NEG - NEG) HEPATITIS B SURFACE AB (HBSA B) (Not yet reviewed by provider) Interpretation: Performing Lab:[facility], [address] [place], [address] Notes/Report: 7SST 1TB 1NAHEP 1LAV FACILITY: [facility] [id number] HEP B SURF AB NEG (NEG - NEG) HEPATITIS B SURFACE AG (HBSA G) (Not yet reviewed by provider) Interpretation: Performing Lab:[facility], [address] [place], [place], [address] [phone] Notes/Report: 7SST 1TB 1NAHEP 1LAV FACILITY: [facility] [id number] HEP B VIPUL AG NEG (NEG - NEG) HEPATITIS C ANTIBODY (HCV) ( Not yet reviewed by provider) Interpretation: Performing Lab:[facility], [address] [place], [address] [phone] Notes/Report: 7SST 1TB 1NAHEP 1LAV FACILITY: [facility] [id number] HEPATITIS C ANTIBODY NEG (NEG - NEG) HLA-B27 (Not yet reviewed by provider) Interpretation: Performing Lab:CHEN, [facility] [address], [place] EvqpEE[address] Meño Johns Notes/Report: FASTING:UNKNOWN FASTING: UNKNOWN HLA-B27 ANTIGEN NEGATIVE NEGATIVE IGG SUBCLASSES (1,2,3 and 4) (Not yet reviewed by provider) Interpretation: Performing Lab:Miranda [facility] [place] Abhishe[address] Alexis, StantonXmqbbsqdlzXM[address] Carmen Becker MD,PhD,JERZY Notes/Report: FASTING:UNKNOWN FASTING: UNKNOWN IMMUNOGLOBULIN G SUBCLASS 1 184 382-929 mg/dL IMMUNOGLOBULIN G SUBCLASS 2 61 241-700 mg/dL IMMUNOGLOBULIN G SUBCLASS 3 31 22-178 mg/dL IMMUNOGLOBULIN G SUBCLASS 4 6.1 4-86 mg/dL IMMUNOGLOBULIN G, SERUM 995 040-9332 mg/dL LUPUS ANTICOAGULANT (Not yet reviewed by provider) Interpretation: Performing Lab:CHEN [employer] [address], [place] TufzJO[address] Meño Johns Notes/Report: FASTING:UNKNOWN FASTING: UNKNOWN LUPUS ANTICOAGULANT NOT DETECTED A Lupus Anticoagulant is not detected. For more information on this test, go to: http://education.GreenLancer/faq/ZFK81h0 (This link is being provided for informational/ educational purposes only.) This interpretation is based on the following test results: PTT-LA SCREEN 26 < OR = 40 sec DRVVT SCREEN 29 < OR = 45 sec LYME TITER IGG and IGM (SCRE EN) (Not yet reviewed by provider) Interpretation: Performing Lab:CHEN [employer] [address], QikZhfxUA[address] Meño Johns Notes/Report: FASTING:UNKNOWN FASTING: UNKNOWN LYME AB SCREEN <0.90 Index Interpretation ----- < 0.90 Negative 0.90-1.09 Equivocal > 1.09 Positive As recommended by the Food and Drug Administration (FDA), all samples with positive or equivocal results in a Borrelia burgdorferi antibody screen will be tested using a blot method. Positive or equivocal screening test results should not be interpreted as truly positive until verified as such using a supplemental assay (e.g., B. burgdorferi blot). The screening test and/or blot for B. burgdorferi antibodies may be falsely negative in early stages of Lyme disease, including the period when erythema migrans is apparent. MAGNESIUM (Not yet reviewed by provider) Interpretation: Performing Lab:[facility], [address] [place], [address] [phone] Notes/Report: 7SST 1TB 1NAHEP 1LAV FACILITY: [facility] [id number] MAGNESIUM 2.0 (1.6 - 2.3) MG/DL JACKY SUBTYPE (8) (dsDNA, SSA, SSB, DUNHAM, HEALTH EDUCATION AIDE, SCL70,JO1,CENTOMERE) (Not yet reviewed by provider) Interpretation: Performing Lab:[facility], [address] [place], [address] Notes/Report: PERFORMED ON PHADIA EFFECTIVE 12-01-2022 7SST 1TB 1NAHEP 1LAV FACILITY: [facility] [id number] ANTI ds DNA <0.6 (0.0 - 15.0) IU/ML SSA/RO52 <0.3 (0.0 - 10.0) U/mL SSA/RO60 <0.4 (0.0 - 10.0) U/mL ANTI SSB/LA <0.4 (0.0 - 10.0) U/mL ANTI DUNHAM <0.7 (0.0 - 10.0) U/mL ANTI HEALTH EDUCATION AIDE (U1RNP) 0.5 (0.0 - 10.0) U/mL ANTI SCL 70 <0.6 (0.0 - 10.0) U/mL ANTI DAMIEN-1 <0.3 (0.0 - 10.0) U/mL ANTI CENTROMERE B <0.4 (0.0 - 10.0) U/mL PHOSPHORUS (Not yet reviewed by provider) Interpretation: Performing Lab:[facility], [address] [place], [place], [address] Notes/Report: 4BLUE 3SST 1LAV FACILITY: [facility] [id number] PHOSPHORUS 4.0 (2.5 - 4.5) MG/DL PTH INTACT (PARATHYROID HORM ONE) (Not yet reviewed by provider) Interpretation: Performing Lab:[facility], [address] [place], [place], [address] Notes/Report: 7SST 1TB 1NAHEP 1LAV FACILITY: [facility] [id number] PTH,INTACT 62.2 (10.0 - 86.5) PG/ML RHEUMATOID FACTOR (RHF) (Not yet reviewed by provider) Interpretation: Performing Lab:[facility], [address] [place], [place], [address] Notes/Report: 7SST 1TB 1NEP 1LAV FACILITY: [facility] [id number] RF FACTOR 10 (0 - 12) IU/ML TOXOPLASMA GONDII AB, IGG (N ot yet reviewed by provider) Interpretation: Performing Lab:CHEN [employer] QikIrfyWH[address] Meño Johns Notes/Report: FASTING:UNKNOWN FASTING: UNKNOWN TOXOPLASMA ANTIBODY (IGG) 109.00 IU/mL Interpretation ------ <7.20 Negative 7.20-8.79 Equivocal >8.79 Positive A positive result indicates infection with Toxoplasma gondii at some time, but does not differentiate between an active or past infection. TOXOPLASMA GONDII AB, IGM (N ot yet reviewed by provider) Interpretation: Performing Lab:CHEN [employer] CreatePtcjMN[address] Meño Johns Notes/Report: FASTING:UNKNOWN FASTING: UNKNOWN TOXOPLASMA ANTIBODY (IGM) <8.00 AU/mL Interpretation ----- <8.00 Negative 8.00-9.99 Equivocal >9.99 Positive Physicians are advised to interpret the results of anti-Toxoplasma IgM tests with caution, and should not rely on any single test result as the sole determinant in diagnosing recently acquired infection. TTG, IGA (TISSUE TRANSGLUTAM INASE, IGA) (Not yet reviewed by provider) Interpretation: Performing Lab:[facility], [address] [place], [place], [address] Notes/Report: REFERENCE RANGE ANTI-TTG, IGA: < 7.0 U/mL = NEGATIVE 7.0 - 10.0 U/mL = BORDERLINE > 10.0 U/mL = POSITIVE PERFORMED ON PHADIA EFFECTIVE 08-30-2021 7SST 1TB 1NAHEP 1LAV FACILITY: [facility] [id number] ANTI-TTG, IGA 0.3 (0.0 - 10.0) U/mL URIC ACID (Not yet reviewed by provider) Interpretation: Performing Lab:[facility], [address] [place], [place], [address] Notes/Report: 7SST 1TB 1NAHEP 1LAV FACILITY: [facility] [id number] URIC ACID 4.8 (3.5 - 8.5) MG/DL VITAMIN D, 25 LEVEL (TOTAL) (Not yet reviewed by provider) Interpretation: Performing Lab:[facility], [address] [place], [place], [address] Notes/Report: * * * VITAMIN D, 25 HYDROXY GENERAL GUIDELINE * * * DEFICIENCY = < OR = 20.0 NG/ML INSUFFICIENCY = 20.1 - 29.9 NG/ML SUFFICIENCY = 30.0 - 100.0 NG/ML TOXICITY = > 100.1 NG/ML 7SST 1TB 1NAHEP 1LAV FACILITY: [facility] [id number] VITAMIN D, 25 23.3 (30.0 - 100.0) NG/ML VITAMIN C (ASCORBIC ACID) (N ot yet reviewed by provider) Interpretation: Performing Lab:AMD, [facility]illian OlveraMay [id number] [facility] , [id number] David Narayan M.D.,PhD Notes/Report: FASTING:UNKNOWN FASTING: UNKNOWN T4 FREE and TSH (Not yet rev iewed by provider) Interpretation: Performing Lab:[facility], [address] [place], [place], [address] [phone] Notes/Report: 4BLUE 3SST 1LAV FACILITY: [facility] [id number] T4 - FREE 1.10 (0.64 - 1.79) UG/DL hTSH 3.26 (0.470 - 4.680) mIU/L SED RATE and CRP (Not yet re viewed by provider) Interpretation: Performing Lab:[facility], [address] [place], [place], [address] [phone] Notes/Report: 4BLUE 3SST 1LAV FACILITY: [facility] [id number] SED RATE WEST. 7 (0 - 24) MM/HR CRP EXTENDED RANGE 9.47 (0.00 - 5.00) MG/L JACKY with TITER (Not yet revi ewed by provider) Interpretation: Performing Lab:[facility], [address] [place], [address] [phone] Notes/Report: 7SST 1TB 1NAHEP 1LAV FACILITY: [facility] [id number] JACKY by HEp-2 CELLS POS (NEG - NEG) JACKY TITER 1:80 (<1:40 - 1:40) JACKY PATTERN = SPECKLED TB GOLD PLUS, QUANTIFERON (N ot yet reviewed by provider) Interpretation: Performing Lab:CHEN, [facility] [employer] [facility] [address], [facility] HospitalLnuvIO[address] Meño Johns Notes/Report: QUANTIFERON(R)-TB GOLD PLUS, 1 TUBE NEGATIVE NEGATIVE Negative test result. M. tuberculosis complex infection unlikely. NIL 0.03 MITOGEN-NIL 9.30 TB2-NIL <0.00 The Nil tube value reflects the background interferon gamma immune response of the patient's blood sample. This value has been subtracted from the patient's displayed TB and Mitogen results. Lower than expected results with the Mitogen tube prevent false-negative Quantiferon readings by detecting a patient with a potential immune suppressive condition and/or suboptimal pre-analytical specimen handling. The TB1 Antigen tube is coated with the M. tuberculosis-specific antigens designed to elicit responses from TB antigen primed CD4+ helper T-lymphocytes. The TB2 Antigen tube is coated with the M. tuberculosis-specific antigens designed to elicit responses from TB antigen primed CD4+ helper and CD8+ cytotoxic T-lymphocytes. For additional information, please refer to https://education.Cardiac Dimensions.com/faq/VSA467 (This link is being provided for informational/ educational purposes only.) COPY RECEIVED FROM: (Not yet reviewed by provider) Interpretation: Performing Lab: Notes/Report: FASTING:UNKNOWN FASTING: UNKNOWN COPY RECEIVED FROM: [facility] CHRISTINA [address] [place] [address] HIV-1 and 2 AG and AB SCREEN , 4TH GEN (Not yet reviewed by provider) Interpretation: Performing Lab:[facility], [address] [place], [address] Notes/Report: 7SST 1TB 1NAHEP 1LAV FACILITY: [facility] [id number] HIV-1/2 AG & AG NEG (NEG - -) ANCA SCREEN WITH REFLEX TO T ITER (Not yet reviewed by provider) Interpretation: Performing Lab:CHEN, [facility] [employer] [id number], [facility] HospitalZcaaCJ[address] Meño Johns Notes/Report: FASTING:UNKNOWN FASTING: UNKNOWN ANCA SCREEN NEGATIVE NEGATIVE ANCA screen uses indirect immunofluorescence to detect antibodies to neutrophil cytoplasmic antigens. A positive screen reflexes to titer and pattern. Patterns include cytoplasmic (c-ANCA) and perinuclear (p-ANCA) both of which are associated with vasculitis, and atypical p-ANCA which is associated with inflammatory bowel disease and other disorders. SYPHILIS TEST (Not yet revie wed by provider) Interpretation: Performing Lab:[facility], [address] [place], [address] [phone] Notes/Report: SYPHILIS EXPECTED RESULTS QUALITATIVE DETECTION OF SYPILIS ANTIBODIES (IGG AND IGM) TO TREPONEMA PALLIDUM NEG = NON-REACTIVE (NEGATIVE FOR TREPONEMAL PALLIDUM ANTIGEN) POS = REACTIVE (POSITIVE SCREEN FOR TREPONEMAL PALLIDUM ANTIGEN) A POS (REACTIVE) SYPHILIS TEST IS PRIMARILY USED FOR SCREENING, FOR CONFIRMATION OF POS RESULTS, IT IS RECOMMENDED THAT A NON-TRPONEMAL TEST SUCH THE RPR (RAPID PLASMA REAGIN) TEST BE RUN. 7SST 1TB 1NAHEP 1LAV FACILITY: [facility] [id number] SYPHILIS ABS NEG () PROCALCITONIN (PCT) (Not yet reviewed by provider) Interpretation: Performing Lab:EZ, [facility]illian [facility],[address] [address] [facility] HospitalCA[address] Carmen Becker MD,PhD,JERZY Notes/Report: FASTING:UNKNOWN FASTING: UNKNOWN PROCALCITONIN <0.10 <0.10 ng/mL Interpretation Guidelines Diagnosis of systemic bacterial infection/sepsis <0.50 ng/mL: Low risk for sepsis: local bacterial infection possible >=0.50 to <2.00 ng/mL: Sepsis is possible; other conditions possible >=2.00 to <10.00 ng/mL: Sepsis likely >10.00 ng/mL: Severe bacterial sepsis or septic shock probable Diagnosis of lower respiratory tract infections: <0.10 ng/mL: Bacterial infection very unlikely >=0.10 to <0.25 ng/mL: Bacterial infection unlikely >=0.25 to <0.50 ng/mL: Bacterial infection likely >=0.50 ng/mL: Bacterial infection very likely Procalcitonin levels should be evaluated in context of all laboratory findings and the total clinical status of the patient. For additional information, please refer to http://education.GreenLancer/faq/FAQ46 (This link is being provided for informational/educational purposes only.) CMP (COMP MET ALVA) w/eGFR CK D-EPI (Not yet reviewed by provider) Interpretation: Performing Lab:[facility], [address] [place], [address] [phone] Notes/Report: 7SST 1TB 1NAHEP 1LAV FACILITY: [facility] [id number] GLUCOSE 70 (74 - 106) MG/DL BUN 15 (7 - 26) MG/DL CREATININE, BLOOD 0.95 (0.66 - 1.25) MG/DL GFR by CKD-EPI 100.6 (60.0) ML/M1.7 SODIUM 137 (135 - 145) MMOL/L POTASSIUM 4.0 (3.5 - 5.1) MMOL/L CHLORIDE 103 (98 - 110) MMOL/L CARBON DIOXIDE 29 (22 - 30) MMOL/L CALCIUM 9.6 (8.6 - 10.6) MG/DL ALBUMIN 4.4 (3.5 - 5.0) G/DL TOTAL PROTEIN 6.6 (6.3 - 8.2) G/DL ALK PHOS 88 (38 - 126) U/L ALT (SGPT) 39 (1 - 45) U/L AST (SGOT) 30 (15 - 46) U/L BILIRUBIN, TOT 0.3 (0.2 - 1.3) MG/DL CBC WITH DIFF (Not yet revie wed by provider) Interpretation: Performing Lab:[facility], [address], [place], [address] Notes/Report: 7SST 1TB 1NAHEP 1LAV FACILITY: [facility] [id number] WBC 7.75 (3.80 - 10.60) x10^3ul RBC 5.08 (4.70 - 6.10) x10^6ul HEMOGLOBIN 15.4 (14.0 - 18.0) G/DL HEMATOCRIT 44.5 (42.0 - 52.0) % MCV 87.6 (80.0 - 94.0) fl MCH 30.3 (27.0 - 33.0) PG MCHC 34.6 (30.0 - 37.0) G/DL RDW-SD 40.2 (37.0 - 49.0) fl PLT 226 (130 - 400) x10^3ul NEUTROPHIL CT 4.62 (1.50 - 7.00) x10^3ul LYMPHOCYTE CT 2.25 (0.96 - 5.40) x10^3ul MONOCYTE CT 0.60 (0.10 - 0.90) x10^3ul EOSINOPHIL CT 0.21 (0.00 - 0.40) x10^3ul BASOPHIL CT 0.03 (0.00 - 0.16) x10^3ul IMMATURE GRAN CT 0.04 (0.00 - 0.11) x10^3ul SEGS 59.7 () % LYMPS 29.0 () % MONOS 7.7 () % EOSINOPHIL 2.7 () % BASOS 0.4 () % IMMATURE GRANS (IG) 0.5 () % COPY RECEIVED FROM: (Not yet reviewed by provider) Interpretation: Performing Lab: Notes/Report: COPY RECEIVED FROM: [facility] CHRISTINA [address] [place] [address] COPY RECEIVED FROM: (Not yet reviewed by provider) Interpretation: Performing Lab: Notes/Report: FASTING:UNKNOWN FASTING: UNKNOWN COPY RECEIVED FROM: [facility] [address] [place] [address] COPY RECEIVED FROM: (Not yet reviewed by provider) Interpretation: Performing Lab: Notes/Report: FASTING:UNKNOWN FASTING: UNKNOWN COPY RECEIVED FROM: [facility] [address] [place] [address] COPY RECEIVED FROM: (Not yet reviewed by provider) Interpretation: Performing Lab: Notes/Report: FASTING:UNKNOWN FASTING: UNKNOWN COPY RECEIVED FROM: [facility] [address] [place] [address] IMMUNOFIXATION-SIEP, BLOOD ( SEP,IGAM,IFIX) (Not yet reviewed by provider) Interpretation: Performing Lab:[facility], [address], [place], [place], [address] [phone] Notes/Report: 7SST 1TB 1NAHEP 1LAV FACILITY: [facility] [id number] IgG, TOTAL 314 (700 - 1600) MG/DL IgA, TOTAL 188 (70 - 400) MG/DL IgM, TOTAL 66 (40 - 230) MG/DL TOTAL PROTEIN 6.6 (6.3 - 8.2) G/DL ALPHA 1 0.2 (0.1 - 0.3) G/DL ALPHA 2 0.8 (0.2 - 1.1) G/DL BETA 0.8 (0.6 - 1.1) G/DL GAMMA 0.3 (0.5 - 1.5) G/DL HYPOGAMMAGL OBULINEMIA. M-PROTEIN PEAK 0.0 (0.0 - 0.01) G/DL GLOBULIN 2.0 (2.3 - 3.5) G/DL A/G RATIO 2.3 (1.2 - 2.2) IMMUNOFIX, BLD NOTES (NOTES) NO MONOCLONAL IMMUNOGLOBULIN DETECTED BY IMMUNOFIXATION. ALBUMIN (SEP) 4.6 (3.5 - 5.0) G/DL FERRITIN (Not yet reviewed b y provider) Interpretation: Performing Lab:[facility], [address] [place], [place], [address] Notes/Report: 4BLUE 3SST 1LAV FACILITY: [facility] [id number] FERRITIN 48.4 (18.0 - 464.0) NG/ML CK (CPK) (Not yet reviewed b y provider) Interpretation: Performing Lab:[facility], [address] [place], [place], [address] Notes/Report: 4BLU 3SST 1LAV FACILITY: [facility] [id number] CPK 126 (55 - 170) U/L ANTI - CCP (CYCLIC CITRULLIN ATED PEPTIDE AB) (Not yet reviewed by provider) Interpretation: Performing Lab:[facility], [address] [place], [address] [phone] Notes/Report: 4BLU 3SST 1LAV FACILITY: [facility] [id number] CCP ANTIBODY <0.5 (0.0 - 4.9) U/mL ELIECER (ANGIOTENSIN CONVERTING ENZYME) (Not yet reviewed by provider) Interpretation: Performing Lab:CB, [facility] [address], [facility] HospitalLcclUX[address] Meño Johns Notes/Report: FASTING:UNKNOWN FASTING: UNKNOWN ANTI - CARDIOLIPIN (ANTIPHOS PHOLIPID) ,IGG/IGA/IGM (Not yet reviewed by provider) Interpretation: Performing Lab:[facility], [address] [place], [address] Notes/Report: 4BLU 3SST 1LAV FACILITY: [facility] [id number] CRYSTAL, IgG 3.9 (10.0 - 40.0) U/mL CRYSTAL, IgA 2.0 (14.0 - 20.0) U/mL CRYSTAL, IgM 1.8 (10.0 - 40.0) U/mL Reason For Referral No Information Encounters Encounter Location Date Provider Diagnosis [facility] [place] [address] [place] [phone] 11/14/2024 Lab Provider [facility] [place] [address] [address] [place] [phone] 11/14/2024 Tatyana Roque Plan Of Treatment Pending Test Test Name Order Date CMP (COMPLETE METABOLIC PANEL) 6 CMP (COMPLETE METABOLIC PANEL) 6 CMP (COMPLETE METABOLIC PANEL) 6 CMP (COMPLETE METABOLIC PANEL) 6 CMP (COMPLETE METABOLIC PANEL) 6 CMP (COMPLETE METABOLIC PANEL) 6 CMP (COMPLETE METABOLIC PANEL) 6 CMP (COMPLETE METABOLIC PANEL) 6 CMP (COMPLETE METABOLIC PANEL) 6 CMP (COMPLETE METABOLIC PANEL) 7 CMP (COMPLETE METABOLIC PANEL) 7 CMP (COMPLETE METABOLIC PANEL) 7 CMP (COMPLETE METABOLIC PANEL) 7 CMP (COMPLETE METABOLIC PANEL) 9 CMP (COMPLETE METABOLIC PANEL) 0 CMP (COMPLETE METABOLIC PANEL) 0 CMP (COMPLETE METABOLIC PANEL) 0 CMP (COMPLETE METABOLIC PANEL) 0 CMP (COMPLETE METABOLIC PANEL) 0 CMP (COMPLETE METABOLIC PANEL) 0 CMP (COMPLETE METABOLIC PANEL) 0 CMP (COMPLETE METABOLIC PANEL) 1 CMP (COMPLETE METABOLIC PANEL) 1 CMP (COMPLETE METABOLIC PANEL) 1 CMP (COMPLETE METABOLIC PANEL) 3 ANTI - CARDIOLIPIN (ANTIPHOSPHOLIPID) ,I GG/IGA/IGM 11/14/2024 ELIECER (ANGIOTENSIN CONVERTING ENZYME) 07/2024 VITAMIN B12 LEVEL (COBALAMIN) 11/14/2024 [id number] IGG,IGA,and IGM 07/2024 ANTI - CCP (CYCLIC CITRULLINATED PEPTIDE AB) 11/14/2024 CK (CPK) 11/14/2024 FERRITIN 11/14/2024 FERRITIN 10/20/2016 FERRITIN 07/25/2015 HEPATITIS B CORE AB, TOTAL 07/25/2015 HEPATITIS B CORE AB, TOTAL 11/14/2024 HEPATITIS B CORE AB, IGM 11/14/2024 HEPATITIS B SURFACE AB (HBSAB) 5 HEPATITIS B SURFACE AB (HBSAB) 6 HEPATITIS B SURFACE AG (HBSAG) 6 HEPATITIS B SURFACE AG (HBSAG) 5 HEPATITIS C ANTIBODY (HCV) 11/14/2024 HLA-B27 11/14/2024 IGG SUBCLASSES (1,2,3 and 4) 11/14/2024 LDH 11/13/2020 LDH 01/08/2021 LDH 10/21/2022 LDH 11/29/2019 LDH 02/03/2019 LDH 07/25/2015 LDH 08/23/2015 LDH 01/17/2016 LDH 01/03/2016 LDH 11/08/2015 LDH 10/20/2016 LDH 08/18/2016 LDH 02/27/2016 LUPUS ANTICOAGULANT 11/14/2024 LYME TITER IGG and IGM (SCREEN) 11/15/19 25 MAGNESIUM 11/14/2024 IRON AND TIBC (WITH SAT) 10/20/2016 IRON AND TIBC (WITH SAT) 07/25/2015 JACKY SUBTYPE (8) (dsDNA, SSA, SSB, DUNHAM, HEALTH EDUCATION AIDE, SCL70,JO1,CENTOMERE) 11/14/2024 IMMUNOFIXATION-SIEP, BLOOD (SEP,IGAM,IFI X) 11/14/2024 PHOSPHORUS 11/14/2024 PTH INTACT (PARATHYROID HORMONE) 025 RHEUMATOID FACTOR (RHF) 11/14/2024 CBC WITH ONCO AUTO DIFF (HWP) 10/21/2022 CBC WITH ONCO AUTO DIFF (HWP) 11/29/2019 CBC WITH ONCO AUTO DIFF (HWP) 10/04/2019 CBC WITH ONCO AUTO DIFF (HWP) 08/09/2019 CBC WITH ONCO AUTO DIFF (HWP) 07/04/2019 CBC WITH ONCO AUTO DIFF (HWP) 02/03/2019 CBC WITH ONCO AUTO DIFF (HWP) 02/01/2020 CBC WITH ONCO AUTO DIFF (HWP) 05/23/2020 CBC WITH ONCO AUTO DIFF (HWP) 03/28/2020 CBC WITH ONCO AUTO DIFF (HWP) 01/08/2021 CBC WITH ONCO AUTO DIFF (HWP) 11/13/2020 CBC WITH ONCO AUTO DIFF (HWP) 07/18/2020 TOXOPLASMA GONDII AB, IGG 11/14/2024 TOXOPLASMA GONDII AB, IGM 11/14/2024 TTG, IGA (TISSUE TRANSGLUTAMINASE, IGA) 11/14/2024 URIC ACID 11/14/2024 VITAMIN D, 25 LEVEL (TOTAL) 11/14/2024 VITAMIN C (ASCORBIC ACID) 11/14/2024 T4 FREE and TSH 11/14/2024 SED RATE and CRP 11/14/2024 CBC WITH 3 PART DIFF 07/25/2015 CBC WITH 3 PART DIFF 09/06/2015 CBC WITH 3 PART DIFF 09/20/2015 CBC WITH 3 PART DIFF 08/23/2015 CBC WITH 3 PART DIFF 11/22/2015 CBC WITH 3 PART DIFF 10/23/2015 CBC WITH 3 PART DIFF 11/08/2015 CBC WITH 3 PART DIFF 12/06/2015 CBC WITH 3 PART DIFF 12/20/2015 CBC WITH 3 PART DIFF 01/17/2016 CBC WITH 3 PART DIFF 01/03/2016 CBC WITH 3 PART DIFF 01/31/2016 CBC WITH 3 PART DIFF 02/27/2016 LDH 09/01/2017 Automated Diff 07/26/2015 JACKY with TITER 11/14/2024 ELVIN 09/16/2016 ANTI HBc 01/11/2019 DIFF 09/18/2020 DIFF 09/24/2016 DIFF 10/20/2016 DIFF 09/01/2017 DIFF 03/04/2017 DIFF 08/18/2016 DIFF 09/15/2016 DIFF 09/04/2016 DIFF 09/16/2016 Manual Abs 09/16/2016 Manual Abs 09/15/2016 TB GOLD PLUS, QUANTIFERON 11/14/2024 CBC AND AUTO DIFF * 09/16/2016 CBC AND AUTO DIFF * 08/18/2016 CBC AND AUTO DIFF * 09/04/2016 CBC AND AUTO DIFF * 09/15/2016 CBC AND AUTO DIFF * 09/01/2017 CBC AND AUTO DIFF * 10/20/2016 CBC AND AUTO DIFF * 09/24/2016 CBC AND AUTO DIFF * 07/26/2015 CBC AND AUTO DIFF * 09/18/2020 CBC AND AUTO DIFF * 01/11/2019 CBC AND AUTO DIFF * 03/04/2017 COMPREHENSIVE METABOLIC PANEL 01/11/2019 COMPREHENSIVE METABOLIC PANEL 09/18/2020 COMPREHENSIVE METABOLIC PANEL 03/04/2017 COMPREHENSIVE METABOLIC PANEL 09/01/2017 eGFR 09/01/2017 eGFR 03/04/2017 eGFR 09/18/2020 HEPATITIS B SURF AG * 01/11/2019 Monoclonal Gammopathies Serum 09/01/2017 Lab Miscellaneous 07/26/2015 PT 01/31/2016 PT 01/03/2016 PT 12/20/2015 Blood Culture 09/16/2016 INTERPRETATION OF PERIPHERAL SMEAR 09/15 COPY RECEIVED FROM: 11/14/2024 COPY RECEIVED FROM: 11/14/2024 COPY RECEIVED FROM: 11/14/2024 COPY RECEIVED FROM: 11/14/2024 COPY RECEIVED FROM: 11/14/2024 HIV-1 and 2 AG and AB SCREEN, 4TH GEN ANCA SCREEN WITH REFLEX TO TITER 025 Anti HBs quantitative 01/11/2019 SYPHILIS TEST 11/14/2024 PROCALCITONIN (PCT) 11/14/2024 CMP (COMP MET ALVA) w/eGFR CKD-EPI 2024 CBC WITH DIFF 11/14/2024 Next Appt Details Provider Name:Tatyana Roque, 12/21/2024 04:15:00 PM, [address] [place] [address], [phone], Insurance Providers Payer Name Payer Address Payer Phone Subscriber Number Group Number Insured Name Patient Relationship to Insured Coverage Start Date Coverage End Date [employer] [place] [employer] [address] [address] [place] [phone] [id number] Johan Seay Self - patient is the insured 3
--- OUTSIDE RECORDS SUMMARY | 2024-11-24 13:40 | XMS_ITS ---
Author Organization [employer] Address [id number] [address] [place] [address] Care Team Providers Care Tester Electronic Scale Name Role Phone LuUnique Angelika DIE CAST OPERATOR-STUDY LEAD Primary Care Provid er Active Problems Problem Noted Date Diagnosed Date [...] Therapy Plans No current plan information found. Other Current Plans [facility] FLUSH ORDERS* Plan Start Date:07/23/2018 Plan Provider:Daly King MD Linked Problems Pneumonia due to infectious organism, unspecified laterality, unspecified part of lung Treatment Medications No medications scheduled. Past Treatment and Therapy Plans
--- OUTSIDE RECORDS SUMMARY | 2024-11-24 13:40 | XMS_ITS | Encounter Summary ---
Author Organization [employer] Address [id number] [address] [place] [address] Care Team Providers Care Voltage Inspector Name Role Phone Unique Lu FITNESS FLOOR ATTENDANT-HVAC SALES REPRESENTATIVE Primary Care Provid er Encounter Details Date Type Department Care Team (Latest Contact Info) Description 11/11/2024 Travel Social History Tobacco Use Types Packs/Day Years [...] AM EDT Hospital Encounter [facility] - Pet Imaging [address] [place] [phone] 12/15/2024 12:45 PM EDT Office Visit [facility] - Medical Oncology [address] [place] [phone] Sal Pham MD [address] [place], [place] [id number] documented as of this encounter Visit Diagnoses Not on filedocumented in this encounter Additional Health Concerns Assessment Noted Time PHQ-9 Depression Total Score: 0 10/21/19 25 3:36 PM EDT A Body Mass Index follow-up plan has been documented for the patient 10/24/2024 1:22 PM EDT documented as of this encounter Care Teams Voltage Inspector Relationship Specialty Start Date End Date Unique Lu, FITNESS FLOOR ATTENDANT-HVAC SALES REPRESENTATIVE [address] [place] [address] PCP - General Family Medicine 10/19/23 documented as of this encounter
--- NOTE | 2024-11-24 13:51 | ED_ITS ---
HPI - Skin/Abscess/Foreign Bdy General Chief complaint: Skin/Abscess/Foreign Body Stated complaint: LUMP - UNDERARM Time Seen by Provider: 11/24/24 13:37 Mode of arrival: walk-in History of Present Illness HPI narrative: 44 year old male presents to the ED for a painful lump to his left axilla area. He noticed it yesterday. Denies fever, chills, injury, drainage. Also reports right ear discomfort. Denies drainage, cough, congestion, sore throat. Related Data Home Medications ?Medication ?Instructions ?Recorded ?Confirmed benzonatate 100 mg capsule mg PO 11/24/24 cyclobenzaprine 10 mg tablet mg 11/24/24 gabapentin 300 mg capsule mg 11/24/24 lumateperone 21 mg capsule mg PO 11/24/24 (Caplyta) Previous Rx's ?Medication ?Instructions ?Recorded aspirin 81 mg capsule 81 mg PO DAILY #30 caps 01/13 10/06 doxycycline hyclate 100 mg capsule 100 mg PO BID 10 da ys #20 caps 11/24/24 zlsuczob-izuhymrlk-hjjwkcmyh 3.5 4 drp otic (ear) Q8H 10 days #10 mL 11/24/24 mg-10,000 unit/mL-1 % ear drops,susp Allergies Allergy/AdvReac Type Severity Reaction Status Date / Time sulfamethoxazole (From Allergy Severe hives Verified 11/24/24 13:29 Bactrim) trimethoprim (From Bactrim) Allergy Severe hives Verified 11/24/24 13:29 PFSH PFSH Social History Little interest or pleasure in doing things: not at all Feeling down, depressed, or hopeless: not at all Exam Constitutional Vital Signs, click to edit/add: Last Vital Signs Temp 97.9 F 11/24/24 13:31 Pulse 100 H 11/24/24 13:31 Resp 18 11/24/24 13:31 BP 131/78 11/24/24 13:31 Pulse Ox 96 11/24/24 13:31 O2 Del Method Room Air 11/24/24 13:31 HENMT Common normals: normocephalic, external ears normal, TMs normal bilaterally and moist oral mucous membranes External auditory canal: EAC abnormal EAC laterality: right erythema and EAC tenderness Tympanic membrane: TMs normal bilaterally Throat: posterior oropharynx normal Eye Common normals: conjunctivae normal and no scleral icterus Neck & C-Spine Common normals: supple and no meningeal signs Chest Common normals: inspection of chest normal Chest: symmetrical chest wall rise Respiratory Common normals: normal respiratory effort Effort & inspection: able to speak in complete sentences and symmetric chest movement Cardio Common normals: regular rate Extremity Other: Tender lump palpable to left axilla area. No drainage. Developing erythema. I and D not indicated at this time. Area approx 4 mm in diameter. Neuro Common normals: oriented x3, moves all extremities and no focal motor deficits Sensorium/orientation: awake and alert Speech: speech normal Course Vital Signs Vital signs: Vital Signs Temperature 97.9 F 11/24/24 13:31 Pulse Rate 100 H 11/24/24 13:31 Respiratory Rate 18 11/24/24 13:31 Blood Pressure 131/78 11/24/24 13:31 Pulse Oximetry 96 11/24/24 13:31 Oxygen Delivery Method Room Air 11/24/24 13:31 Temperature 97.9 F 11/24/24 13:31 Pulse Rate 100 H 11/24/24 13:31 Respiratory Rate 18 11/24/24 13:31 Blood Pressure 131/78 11/24/24 13:31 Pulse Oximetry 96 11/24/24 13:31 Oxygen Delivery Method Room Air 11/24/24 13:31 MDM - Skin/Abscess/Foreign Bdy MDM Narrative Medical decision making narrative: Prescriptions were provided for Cortisporin otic drops and doxycycline. He was placed on oral antibiotics for the developing abscess in the left axilla area. Follow up with pcp for a recheck, further evaluation and treatment. Warm, moist compresses were discussed for the axilla area. Differential Diagnosis Differential diagnosis: Likely other (Abscess, otitis media, otitis externa, otalgia) Medical Records Attestation: I reviewed the patient's medical records. Lab Data Attestation: I reviewed the patient's lab results. Discharge Plan Discharge Chief Complaint: Skin/Abscess/Foreign Body Clinical Impression: Abscess of skin or subcutaneous tissue, Otitis externa Patient Disposition: Home, Self-Care Time of Disposition Decision: 13:56 Condition: Good Mode of Transportation: Private Vehicle Prescriptions / Home Meds: New cnsdiokg-kdvqmrwox-LP 3.5-10,000-1 mg/mL-unit/mL-% drops,suspension 4 drp otic (ear) Q8H 10 Days Qty: 10 0RF Rx Instructions: Right ear doxycycline hyclate 100 mg capsule 100 mg PO BID 10 Days Qty: 20 0RF No Action aspirin 81 mg capsule 81 mg PO DAILY Qty: 30 0RF cyclobenzaprine 10 mg tablet benzonatate 100 mg capsule PO gabapentin 300 mg capsule Caplyta 21 mg capsule PO Print Language: Yoruba Instructions: Swimmer's Ear (ED), Abscess (ED) Additional Instructions: Return to the ER for worsening symptoms. Referrals: SHANTHI FRANCO [Primary Care Provider, Unknown] - 1 week Discharge Date/Time: 11/24/24 14:16
== END 2024-11-24 14:16 | disposition home or self-care (01) ==
PROVIDERS: Emergency Provider Emergency Medicine; PCP Nurse Practitioner
DX: L02.412 Cutaneous abscess of left axilla (principal); H60.91 Unspecified otitis externa, right ear
CPT/HCPCS: 99283

== ENCOUNTER 2024-12-05 11:22 | Emergency (ER) | payer MEDICAID, SELFPAY ==
[2024-12-05 11:29] VITALS: BP 148/98; PULSE 85; TEMP 36.8; O2SAT 98; BMI 28.0
--- NOTE | 2024-12-05 13:43 | ED_ITS ---
HPI HPI - General Adult General Chief complaint: Recheck/Abnormal Lab/Rx Stated complaint: MED REFILL Time Seen by Provider: 12/05/24 13:14 Source: patient Mode of arrival: walk-in Limitations: no limitations History of Present Illness HPI narrative: Patient is a 44-year-old male who is presenting to the ER today with chief complaint of medication refill. Patient has a history of schizophrenia. Patient has auditory hallucinations. Patient missed an appointment on Thursday with his psychiatrist. Patient has an appointment at 830 tomorrow morning with a psychiatrist. Patient is having auditory hallucinations that are telling him to hurt people and things. Patient states this is normal for him when he does not take his medications. Patient states the medication takes his halluci nations away. Patient is here for medication help. He currently is not suicidal homicidal, however patient is hearing the voices that is causing anger, but this is acute on chronic. This is not new today. He is not suicidal. Not homicidal. Not delusional. Patient is appropriate. Patient has been in the ER for several hours, patient will have intermittent yelling spells in the room, but is not destroying property, attacking a body, not hurting anybody. Patient has no medical complaints at this time. All systems are negative except as noted/marked. All systems reviewed and otherwise negative. Nurses note and vital signs reviewed and patient is not hypoxic. General: The patient appears well and in no apparent distress. Patient is resting comfortably on cart. Patient is not toxic, lethargic, or listless Skin: Warm, dry, no pallor noted. There is no rash noted. No petechiae, purpura. Head: Normocephalic, atraumatic Eye: Normal conjunctiva, no drainage, EOMI. PERRL Ears, Nose, Mouth, and Throat: oral mucosa is moist. Nares patent. Mouth without vesicles. Cardiovascular: Regular Rate and Rhythm, no murmur, gallop, rub Respiratory: Patient is in no distress, no accessory muscle use, lungs are clear to auscultation, no wheezing, rales or rhonchi Back: non-tender, GI: no tenderness, soft Musculoskeletal: Patient has full range of motion of all of the extremities, no motor, sensory, or focal neurological deficits Neurological: A&O x4, normal speech Psychiatric: Cooperative, patient is intermittently having auditory hallucinations, he is not acting on it, he is not violent, intermittently yelling in the room in the last several hours since he has been waiting secondary to high volume. Related Data Home Medications ?Medication ?Instructions ?Recorded ?Confirmed benzonatate 100 mg capsule mg PO 11/24/24 cyclobenzaprine 10 mg tablet mg 11/24/24 gabapentin 300 mg capsule mg 11/24/24 lumateperone 21 mg capsule mg PO 11/24/24 (Caplyta) lumateperone 10.5 mg capsule mg PO 12/05/24 (Caplyta) Previous Rx's ?Medication ?Instructions ?Recorded aspirin 81 mg capsule 81 mg PO DAILY #30 caps 01/13 10/06 doxycycline hyclate 100 mg capsule 100 mg PO BID 10 da ys #20 caps 11/24/24 ipaasmpb-snqwecegi-wkcebugwy 3.5 4 drp otic (ear) Q8H 10 days #10 mL 11/24/24 mg-10,000 unit/mL-1 % ear drops,susp Allergies Allergy/AdvReac Type Severity Reaction Status Date / Time sulfamethoxazole (From Allergy Severe hives Verified 12/05/24 11:33 Bactrim) trimethoprim (From Bactrim) Allergy Severe hives Verified 12/05/24 11:33 PFSH PFS Social History Little interest or pleasure in doing things: not at all Feeling down, depressed, or hopeless: not at all Exam Constitutional Vital Signs, click to edit/add: Last Vital Signs Temp 98.3 F 12/05/24 11:29 Pulse 85 12/05/24 11:29 Resp 18 12/05/24 11:29 BP 148/98 H 12/05/24 11:29 Pulse Ox 98 12/05/24 11:29 O2 Del Method Room Air 12/05/24 11:29 Course Vital Signs Vital signs: Vital Signs Temperature 98.3 F 12/05/24 11:29 Pulse Rate 85 12/05/24 11:29 Respiratory Rate 18 12/05/24 11:29 Blood Pressure 148/98 H 12/05/24 11:29 Pulse Oximetry 98 12/05/24 11:29 Oxygen Delivery Method Room Air 12/05/24 11:29 Temperature 98.3 F 12/05/24 11:29 Pulse Rate 85 12/05/24 11:29 Respiratory Rate 18 12/05/24 11:29 Blood Pressure 148/98 H 12/05/24 11:29 Pulse Oximetry 98 12/05/24 11:29 Oxygen Delivery Method Room Air 12/05/24 11:29 Medical Decision Making MDM Narrative Medical decision making narrative: Patient is asking for a tablet to help with his anger until he takes his medication at bedtime. Patient was given option of Geodon or Seroquel, patient is asking for Geodon. Patient states that will help with his auditory hallucinations until he takes his tablet tonight. Patient is not currently suicidal homicidal, patient is intermittently having anger episodes which is acute on chronic. Patient is thankful for help with Geodon. Patient was given with prescription for 1 tablet that he takes at bedtime. Patient will then be discharged. Patient thankful for help. Patient is manageable with de- escalation, he has not been violent with anybody or anything in the ER today. Discharge Plan Discharge Chief Complaint: Recheck/Abnormal Lab/Rx Clinical Impression: Medication refill, Schizophrenia Patient Disposition: Home, Self-Care Time of Disposition Decision: 13:39 Condition: Fair Prescriptions / Home Meds: No Action aspirin 81 mg capsule 81 mg PO DAILY Qty: 30 0RF cyclobenzaprine 10 mg tablet benzonatate 100 mg capsule PO gabapentin 300 mg capsule Caplyta 21 mg capsule PO utaxukiq-hngkpnzmm-UU 3.5-10,000-1 mg/mL-unit/mL-% drops,suspension 4 drp otic (ear) Q8H 10 Days Qty: 10 0RF Rx Instructions: Right ear doxycycline hyclate 100 mg capsule 100 mg PO BID 10 Days Qty: 20 0RF Caplyta 10.5 mg capsule PO Print Language: Lithuanian Instructions: Schizophrenia (ED), Medicine Refill (ED), Hallucinations (ED) Additional Instructions: See your psychiatrist tomorrow at 8:30 in the morning at your appointment Do not miss your appointment You are given Geodon 20 mg tablet in the ER today You are given a refill of your prescription for 1 tablet tonight, get your medication refilled tomorrow from your psychiatrist. Referrals: SHANTHI FRANCO [Primary Care Provider, Unknown] - 1 week
[2024-12-05] MEDS: ZIPRASIDONE HCL 20 MG CAPSULE PO (13:46)
== END 2024-12-05 13:48 | disposition home or self-care (01) ==
PROVIDERS: Emergency Provider Emergency Medicine; PCP Nurse Practitioner
DX: Z76.0 Encounter for issue of repeat prescription (principal); F20.9 Schizophrenia, unspecified; R44.0 Auditory hallucinations
CPT/HCPCS: 99283

== ENCOUNTER 2025-01-25 19:27 | Emergency (ER) | payer MEDICAID, SELFPAY ==
--- OUTSIDE RECORDS SUMMARY | 2024-11-14 08:45 | XMS_ITS ---
Author Organization [facility] in [place] Address [address] [place] [address] Care Team Providers Care Counter Intelligence Agent Name Role Phone Britt Pelletier Primary Care Provider Tatyana Mosqueda [phone] REASON FOR VISIT MD José Luis Luis Encounters Encounter Location Date Provider Diagnosis [facility] [address] [place] [phone] 11/14/2024 Tatyana Roque Plan Of Treatment Next Appt Details Provider Name:Tatyana Roque, 12/20/2025 02:45:00 PM, [address] [place] [address], [phone], Progress Notes * Johan CARNES RDOB:[birth year] (44 yo M)Acc No.[id number]:11/14/2024 UNLOCKED PROGRESS NOTE Progress Notes Patient: Johan ETIENNE Provider: Lina Roque M.D. :1980 A ge:44 Y S ex:Male Date:11/14/2024 Address:[address] [place], [place] [phone] Pcp:Britt Pelletier Subjective: * Chief Complaints: * 1 . MD José Luis Luis. * Medical History: Objective: * Vitals: Assessment: Plan: * Treatment: * * Electronic signature of Baron Roque MD, [id number] on 01/25/2025 at 07:35 PM EDT Sign off status: Pending Visit Status: F AILEDMSG (Voice) * Provider: Lina Roque M.D. Date: 0 11/14/2024 Generated for Richard montesinos/Jordin/Jaycob on: 0 01/25/2025 07:35 PM EDT
--- OUTSIDE RECORDS SUMMARY | 2024-11-14 09:30 | XMS_ITS ---
Author Organization The [facility] in [place] Address [address] [place] [address] Care Team Providers Care Senior Bioinformatics Specialist Name Role Phone Britt Pelletier Primary Care Provider Unavailabl e Provider, Lab Unavailable [phone] Encounters Encounter Location Date Provider Diagnosis [facility] [place] [facility] [address] [place] [phone] 11/14/2024 Lab Provider Plan Of Treatment Next Appt Details Provider Name:Tatyana Roque, 12/20/2025 02:45:00 PM, [address] [place] [address], [phone], Progress Notes * Johan CARNES RDOB:[birth year] (44 yo M)Acc No.[id number]:11/14/2024 UNLOCKED PROGRESS NOTE Progress Note Patient: Johan ETIENNE Provider: Tiffanie gilliland Provider :1980 A ge:44 Y S ex:Male Date:11/14/2024 Address:[address] [place] [phone] Pcp:Britt Pelletier Check In:01:27 PM ESTCheck O ut:01:45 PM EST Subjective: * Chief Complaints: * [address] * Medical History: Objective: * Vitals: Assessment: Plan: * Treatment: * * Electronic signature of Lab Provider on 01/25/2025 at 07:35 PM EDT Sign off status: Pending Visit Status: Sim BUNN (Check Out) * Provider: Tiffanie gilliland Provider Date: 0 11/14/2024 Generated for Richard montesinos/Jordin/Jaycob on: 0 01/25/2025 07:35 PM EDT
--- OUTSIDE RECORDS SUMMARY | 2024-12-21 12:15 | XMS_ITS ---
Author Organization [facility] [place] Address [address] [place] [address] Care Team Providers Care Candy Attendant Name Role Phone Britt Pelletier Primary Care Provider Tatyana Mosqueda [phone] REASON FOR VISIT MD Luis Encounters Encounter Location Date Provider Diagnosis [facility] [address] [place] [phone] 12/21/2024 Tatyana Roque Plan Of Treatment Next Appt Details Provider Name:Tatyana Roque, 12/20/2025 02:45:00 PM, [address] [place] [address], [phone], Progress Notes * Johan CARNES RDOB:[birth year] (44 yo M)Acc No.[id number]:12/21/2024 UNLOCKED PROGRESS NOTE Progress Notes Patient: Johan ETIENNE Provider: Lina Roque M.D. :1980 A ge:44 Y S ex:Male Date:12/21/2024 Address:[address] [place], [place] [phone] Pcp:Britt Pelletier Subjective: * Chief Complaints: * 1 . Rheum. * Medical History: Objective: * Vitals: Assessment: Plan: * Treatment: * * Electronic signature of Baron Roque MD, [id number] on 01/25/2025 at 07:36 PM EDT Sign off status: Pending Visit Status: Sim CASTILLO (Voice) * Provider: Lina Roque M.D. Date: 0 12/21/2024 Generated for Richard montesinos/Jordin/Jaycob on: 0 01/25/2025 07:36 PM EDT
--- OUTSIDE RECORDS SUMMARY | 2025-01-11 12:05 | XMS_ITS | Encounter Summary ---
[id number] [address] [place] [address] Care Team Providers Care Manager Game Name Role Phone No Pcp, No Pcp Primary Care Provider Unavailabl e Reason for Referral * Cardiology (Routine) - Closed Specialty Diagnoses / Procedures Referred By Geraldine marlow Referred To Contact Diagnoses Preop examination Procedures ECG 12 lead Chevy Ray MD [address] [place], [place] [id number] Phone: tel: fax: Referral ID Status Reason Start Date Expiration Date Visits Re quested Visits Authorized [id number] Closed 01/10/2025 01/10/2026 1 1 Reason for Visit * Cardiology (Routine) - Closed Specialty Diagnoses / Procedures Referred By Geraldine marlow Referred To Contact Diagnoses Preop examination Procedures ECG 12 lead Chevy Ray MD [address] [place], [place] [address] [address] Phone: tel: fax: Referral ID Status Reason Start Date Expiration Date Visits Re quested Visits Authorized [id number] Closed 01/10/2025 01/10/2026 1 1 Encounter Details Date Type Department Care Team (Latest Contact Info) Description 01/11/2025 12:05 PM EDT - 01/11/2025 11:59 PM EDT Hospital Encounter [facility] - Cardiovascular [address] [place] [address] Chevy Ray MD [address] [facility] [place] [address] Preop examination Discharge Disposition: Home Social History Tobacco Use Types Packs/Day Years Used Date Smoking Tobacco: Every Day Cigarettes 0.5 37.6 Started: 1988 Smokeless Tobacco: Never Comments:Started smoking [...] on file documented as of this encounter Medications at Time of Discharge acetaminophen (TYLENOL EXTRA STRENGTH) 500 mg tablet Take 2 tablets (1,000 mg total) by mouth every 6 (six) hours. 30 tablet 01/16/2025 aspirin 81 mg Take 1 tablet (81 mg total) by mouth as needed. Last dose 01/30/24 CAPLYTA 42 mg capsule capsule Take 1 capsule (42 mg total) by mouth in the morning. 12/27/2024 cyclobenzaprine (FLEXERIL) 10 mg tabletIndications :Muscle spasm Take 1 tablet (10 mg total) by mouth 2 (two) times a day as needed for muscle spasms. 40 tablet 2 12/15/2023 gabapentin (NEURONTIN) 300 mg capsuleIndication s:Chronic midline low back pain with sciatica, sciatica laterality unspecified Take 1 capsule (300 mg total) by mouth 3 (three) times a day. 90 capsule 3 10/20/2024 ibuprofen (MOTRIN) 600 mg tablet Take 1 tablet (600 mg total) by mouth every 6 (six) hours. 30 tablet 01/16/2025 lidocaine (LIDODERM) 5 %Indications:Fund Manager praveen pain syndrome,Chronic left hip pain Place 1 patch on the skin daily. 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 Max Daily Amount: 20 mg 5 tablet 01/16/2025 01/19/2025 documented as of this encounter Plan of Treatment Upcoming Encounters Date Type Department Care Team (Late st Contact Info) Description 01/30/2025 11:00 AM EDT Office Visit [facility] General Surgery [address] [place] [phone] Jennifer Bender, ARTIFICIAL FLOWERS DYER-ECONOMIC DEVELOPMENT COORDINATOR [address] [place] [address] 02/07/2025 12:00 PM EDT Office Visit [facility] - Pain Management Clinic [address] [place] [phone] Cameron Soria, MERLINE [address] [facility], [address] [place] [address] 03/27/2025 11:00 AM EDT Office Visit [facility] Internal Medicine - Family Medicine [address] [place] [phone] Xavier Zamarripa, ARTIFICIAL FLOWERS DYER-ECONOMIC DEVELOPMENT COORDINATOR [address], [address] [address] documented as of this encounter Procedures Procedure Name Priority Date/Time Associated Diagnosis Comments ECG 12-LEAD Routine 01/11/2025 12:25 PM EDT Preop examination documented in this encounter Results * ECG 12 lead (01/11/2025 12:25 PM EDT) 01/11/2025 12:2 5 PM EDT Narrative TRACEMASTERVUE - 01/12/2025 10:09 AM EDT Chevy Ray MD ECG ORDERABLES Final Result TRACEMASTERVUE documented in this encounter Visit Diagnoses Diagnosis Preop examination Unspecified pre-operative examination documented in this encounter Additional Health Concerns Assessment Noted Time PHQ-9 Depression Total Score: 0 10/21/19 3:36 PM EDT A Body Mass Index follow-up plan has been documented for the patient 10/24/2024 1:22 PM EDT documented as of this encounter Care Teams Manager Game Relationship Specialty Start Date End Date No Pcp, [place] [id number] PCP - General Family Medicine 01/11/25 01/11/25 documented as of this encounter
--- OUTSIDE RECORDS SUMMARY | 2025-01-11 12:45 | XMS_ITS | Encounter Summary ---
Author Organization [employer] [facility] Address [facility] [place]-[id number] [address] [place] [address] Care Team Providers Care Belt And Link Shop Supervisor Name Role Phone No Pcp, No Pcp Primary Care Provider Unavailabl e Reason for Referral * Cardiology (Routine) - Closed Specialty Diagnoses / Procedures Referred By Contac t Referred To Contact Diagnoses Preop examination Procedures ECG 12 lead Chevy Ray MD [address] [place] [id number] Phone: tel: fax: Referral ID Status Reason Start Date Expiration Date Visits Re quested Visits Authorized [id number] Closed 01/10/2025 01/10/2026 1 1 Encounter Details Date Type Department Care Team (Latest Contact Info) Description 01/11/2025 12:45 PM EDT Procedure visit [facility] - Pre Admit [address] [address] Preop examination (Primary Dx) Social History Tobacco Use Types [...] on file documented as of this encounter Patient Instructions * Patient Instructions* Katelyn No RN - 01/11/2025 12:45 PM EDT Preoperative Education Checklist- General Surgery date: 01/16/25 Surgery time: 1215p Arrival time: 1015a 1. Bring a photo ID and your insurance card with you the day of surgery. You will check in at the main lobby of the [facility]- registration desk is straight ahead as soon as you walk in. Tell them you are here for surgery. 2. If you have a Living Will/Durable Power of Hearing Officer for Health Care that is not on file here, please bring a copy the day of surgery. 3. Please shower/bathe the night before surgery with the provided soap or wipes. Do not shower the morning of surgery- you will do use wipes when you arrive here at the hospital before getting into your surgical gown. Do not shave the area of your procedure for 2 days prior to your surgery. 4. NO powder, lotion, perfume/cologne, aftershave, make-up, deodorant, or hair products after you have bathed. 5. NO nail central african/acrylic on at least one finger. If you are having a hand, wrist or foot surgery then all nail central african and artificial/acrylic nails must be removed from that hand or foot. 6. Avoid ALL Aspirin and non-steroidal anti-inflammatory drugs and certain vitamins (Ibuprofen, Advil, Aleve, Excedrin, Meloxicam, Celebrex, fish/krill oil, etc.) for 7 days prior to surgery as instructed by your surgeon and/or your prescribing doctor. Tylenol IS ALLOWED. If you are on Ticlid, Xarelto, Eliquis, Pradaxa, Plavix or Coumadin, please check with your prescribing doctor for instructions for when to stop them. 7. If you use an inhaler, continue to use it routinely. 8. Nothing to eat or drink (not even water, gum, mints, or hard candy!) AFTER midnight prior to your surgery. 9. Take only medications that you are instructed to on the morning of surgery with a TINY SIP OF WATER. 10. Choose a responsible adult that will be able to drive you home when you are discharged from your hospital stay for your surgery and can stay with you in your home for 24 hours after your procedure. You must NOT drive any vehicle or operate any machinery for 24 hours after surgery. 11. When you dress for your appointment, please wear loose fitting clothing that is appropriate to accommodate your surgical area procedure. BRING WITH YOU ANY DEVICES YOU MAY NEED: CARROLL hose, ice machine, sling/swath, brace or special shoe, oversized zip-up or button up shirt, CPAP machine if staying overnight. 12. Do NOT wear jewelry, watches, or any piercings or metal for surgery- leave these valuables and money at home. 13. Do NOT wear contact lenses for surgery- glasses are okay if needed. 14. The anesthesiologist will talk with you the day of surgery and will ask you to sign a Consent Form. 15. Refrain from smoking or any type of tobacco use for at least 8 hours and marijuana for 24 hoursprior to arrival for your surgery. 16. Notify your surgeon if you develop any illness before your surgery. 17. If you are staying overnight, please DO NOT BRING your home medications with you. 18. If you have any questions prior to surgery, please call the Preadmission Testing office at [phone], Mon.-Fri. 7 a.m.-3 p.m. Leave a voicemail if needed. Pre-Surgery Instructions: Medication Instructions CAPLYTA 42 mg capsule capsule Continue as prescribed, DO NOT take morning of procedure aspirin 81 mg Per Surgeon's instructions cyclobenzaprine (FLEXERIL) 10 mg tablet Continue as prescribed, DO NOT take morning of procedure gabapentin (NEURONTIN) 300 mg capsule Continue as prescribed, DO NOT take morning of procedure lidocaine (LIDODERM) 5 % Continue as prescribed, DO NOT take morning of procedure How to Avoid an Infection after Your Surgery Your doctor will give you specific instructions, but remember: -ALWAYS wash hands before caring for your incision. -No picking, scratching, or rubbing your incision. -No creams, lotion, powder, rubbing alcohol or hydrogen peroxide on the incision (can harm the tissue and slow healing). -Your doctor will give you specific instructions for what type of dressing you will need and how often it will need changed for infection purposes. -No tight clothing on incision. -Do not allow anyone to touch your incision unless they are cleaning, checking, or redressing it (be sure they wash their hands first). -No contact of your incision with pets; avoid sleeping with pets. -Take full course of antibiotic if prescribed for you after surgery- do not stop unless directed dominique your physician. You may also be given an antibiotic prior to your surgery to help prevent surgical site infections. -Eat a healthy and varied diet including proteins, fruits, and vegetables to help promote wound healing and keep blood sugars under control if you are diabetic. -Smoking slows the healing process by decreasing the amount of oxygen in your blood that is needed for tissue healing. Try to avoid or stop smoking if possible. LOOK at your incision each morning and each night to check the progress of healing. Some soreness, numbness, itching and/or mild bruising around the incision is normal. Call your doctor if you noticeany of the following: -Increased redness or hardening around the incision area. -Increased pain at the incision site. -Incision feels hot to the touch. -Swelling or pulling apart of the incision edges. -Yellow or green drainage or foul odor coming from the incision. -Bleeding from the incision (apply pressure as needed). -Fever higher than 101 degrees Fahrenheit for more than 4 hours. SHOWERING: Your doctor will give you specific instructions, but remember: -Be careful getting into and out of the shower. -Showers should be quick (5 minutes or less). -Use a clean washcloth to gently wash your incision with soap and water and pat the area dry with aclean towel. -No re-using wash cloths or towels; get a fresh one to clean your incision. -Do not soak in the bathtub, go swimming or use a hot tub (Jacuzzi), or perform activities where your incision is submerged in water or exposed to any fluids or substances until instructed by your doctor. -If your have the sticky strips (steri-strips) over the incision, it is OK to shower with them. Do not remove them. Let them fall off on their own. If you have a question, call your doctor???s office. Go to the follow-up appointment with your doctor. documented in this encounter Plan of Treatment Upcoming Encounters Date Type Department Care Team (Late st Contact Info) Description 01/30/2025 11:00 AM EDT Office Visit [facility] General Surgery [address] [place] [address] Jennifer Bender, EXTRACT OPERATOR-REFINER OPERATOR [address] [place] [address] 02/07/2025 12:00 PM EDT Office Visit [facility] [address] [place] [id number] Cameron Soria, MERLINE [address] [facility] [place] [address] 03/27/2025 11:00 AM EDT Office Visit [facility] Internal Medicine - Family Medicine [address] [place] [address] Xavier Zamarripa, EXTRACT OPERATOR-REFINER OPERATOR [address], [address] [id number] documented as of this encounter Results * ECG 12 lead (01/11/2025 12:25 PM EDT) 01/11/2025 12:2 5 PM EDT Narrative TRACEMASTERVUE - 01/12/2025 10:09 AM EDT us Chevy Ray MD ECG ORDERABLES Final Result [facility]AC[facility]AST[facility]UE documented in this encounter Visit Diagnoses Diagnosis Preop examination- Primary Unspecified pre-operative examination Preop examination Unspecified pre-operative examination documented in this encounter Additional Health Concerns Assessment Noted Time PHQ-9 Depression Total Score: 0 10/21/19 3:36 PM EDT A Body Mass Index follow-up plan has been documented for the patient 10/24/2024 1:22 PM EDT documented as of this encounter Care Teams Belt And Link Shop Supervisor Relationship Specialty Start Date End Date No Pcp, [place] [id number] PCP - General Family Medicine 01/11/25 01/11/25 documented as of this encounter
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
--- OUTSIDE RECORDS SUMMARY | 2025-01-16 10:43 | XMS_ITS | Encounter Summary ---
Author Organization adjust tem Address [id number] [address] [place] [address] Care Team Providers Care Shaker Flatwork Name Role Phone Xavier Zamarripa HSPT TUTOR-MOSQUITO SPRAYER Primary Care Provider + Reason for Visit * Auth/Cert Specialty Diagnoses / Procedures Referred By Geraldine t Referred To Contact Diagnoses right groin lymph node lymphocyte Procedures MA BIOPSY/EXCISION, LYMPH NODE(S) BIOPSY LYMPH NODE INGUINAL Scot Pang MD [address] [place] [address] Phone: tel: fax: Referral ID Status Reason Start Date Expiration Date Visits Re quested Visits Authorized [id number] 1 1 Encounter Details Date Type Department Care Team (Late st Contact Info) Description 01/16/2025 10:43 AM EDT Anesthesia Event [facility] - Surgery [address] [place] [phone] Chevy Ray MD [address] [place] [id number] Anesthesia Record Procedure Summary Procedure Name Responsible Anesthesiologist Anesthesia Start Time Anesthesia Stop Time BIOPSY LYMPH NODE INGUINAL (Right) Chevy Ray MD 01/16/25 1043 01/16/25 1124 Events Date Time Event Comment 01/16/2025 1034 1043 An Start 1043 An Start Data 1046 An Induction The patient was reevaluated immediately before moderate or deep sedation use and before anesthesia induction. 1048 Patient Ready for Surgeon 1048 Position 1121 an stop data 1122 Transport/Transfer From the OR 1123 Handoff to RN Transported to :Phase II, Spontaneous Ventilation, O2 per Room Air, 0 LPM Pt. Tolerated procedure well, vital signs stable and document on nursing record Care transferred to receiving RN 1124 An Stop Meds Name Total midazolam (VERSED) injection 2 mg/2 mL 2 mg fentaNYL (SUBLIMAZE) injection 100 mcg ondansetron PF (ZOFRAN) 2 mg/mL injectio n 4 mg lidocaine PF (XYLOCAINE) local injection 2% 60 mg propofol (DIPRIVAN) injection 337 mg lactated ringers infusion 500 mL * Agents Name Sevoflurane Inspired Sevoflurane * Blood No blood administrations on file. Lines, Drains, and Airways Type Details Placement Removal Wound 01/16/25; 1117; Inci kelsie; Thigh; Right; mastisol, steri-strips, 4x4, cover-all tape 01/16/25 1117 by Loraine Minor RN ETT Placement Date: 01/14 ; Placement Time: 0850 (created via procedure documentation); Mask Ventilation: Ventilated by mask; Type: Cuffed, Oral; Tube Size: 8 mm; Laryngoscope: Mac; Blade Size: 4; Location: Oral; Grade View: 1; Placement Verification: Auscultation, End tidal CO2, Symmetrical chest wall movement; Removal Date: 01/16/25; Removal Time: 1208 02/02/24 0850 by Rey Rose, [facility] 01/16/25 1208 by Madeline Ledbetter RN Peripheral IV Orientation: Anterio r, Proximal, Right; Location: Forearm; Removal Date: 01/16/25; Removal Time: 1208 01/16/25 1042 by 01/16/25 1208 by Madeline Ledbetter RN documented in this encounter Social History Tobacco Use Types Packs/Day Years [...] on file documented as of this encounter OR Notes * Anesthesia Postprocedure Evaluation - Chevy Ray MD - 01/17/2025 8:14 AM EDT ANESTHESIA POST-EVALUATION [facility] Procedure Summary Date: 01/16/25 Room / Location: [facility] OR [address] [place] [address] SURGERY Anesthesia Start: 1043 Anesthesia Stop: 1124 Procedure: BIOPSY LYMPH NODE INGUINAL (Right) Diagnosis: (right groin lymph node lymphocyte) Surgeons: Scot Pang MD Responsible Provider: Chevy Ray MD Anesthesia Type: MAC ASA Status: 3 Vitals: 01/16/25 1145 BP: 129/74 Pulse: 64 Resp: 18 Temp: SpO2: 92% Patient Evaluated: PACU Patient Participation: Complete - patient participated Patient Level of Consciousness: Awake Pain Score: 1 Pain Management: Adequate Airway Patency: Patent Anesthetic Complications: No Cardiovascular Status: Hemodynamically Stable Respiratory Status: Stable/Baseline, Nonlabored Ventilation and Room Air Post-op Hydration: Euvolemic Final Anesthesia Type: MAC Does patient meet criteria to D/C from PACU?: Yes Is patient sedated pharmacologically at PACU D/C?: No No notable events documented. * Anesthesia Preprocedure Evaluation - Chevy Ray MD - 01/16/2025 10:34 AM EDT Images from the original note were not included. ANESTHESIA PRE-PROCEDURE [facility] Procedure(s): BIOPSY LYMPH NODE INGUINAL ANESTHESIA PHYSICAL EXAM Patient summary reviewed and nursing notes reviewed. Echocardiogram reviewed and stress test reviewed Airway Mallampati: II TM distance: >3 FB Neck ROM: full Patient is not intubated Patient does not have tracheostomy Dental (+) Edentulous Pulmonary : exam normal Cardiovascular : exam normal ECG reviewed Neuro Abdominal : exam normal Other Findings ANESTHESIA PLAN ASA 3 Anesthesia Type: MAC Induction: Intravenous Anesthetic risks, plan and alternatives discussed with Patient and Spouse. Use of blood products discussed with Patient and Spouse who consented to blood products. Plan discussed with Attending and DESIGN AGENT. Airway Management: Nasal Cannula and Awake/Sedated Post op Pain Management: IV Analgesics Transfer to Phase II PONV: Low Risk Total Score: 0 Criteria that do not apply: Female patient Non-smoker History of PONV and/or Motion Sickness Intended opioid administration RCRI: Intermediate Risk: Score of 2 = 10.1% (8.1-12.6%) Risk of major cardiac event Total Score: 2 Cerebrovascular Disease Congestive Heart Failure Criteria that do not apply: Ischemic Heart Disease Elevated Risk Surgery Pre-operative Treatment with Insulin Pre-operative Creatinine >2 mg/dL / 176.8 mol/L Patient Active Problem List Diagnosis Pneumonia due to infectious organism Acute thrombosis of right axillary vein ([facility]) Anxiety and depression Attention deficit hyperactivity disorder (ADHD), combined type Blood clot due to device, implant, or graft Cancer associated pain Cannabis abuse, daily use Chronic back pain Chronic systolic CHF (congestive heart failure) ([facility]) Chronic thrombosis of right axillary vein ([facility]) Cocaine abuse ([facility]) Empyema ([facility] HFrEF (heart failure with reduced ejection fraction) ([facility]) Hodgkin lymphoma ([facility]) Lymphoma ([facility]) 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 ([facility]) Internal jugular vein thrombosis ([facility]) Cigarette smoker one half pack a day or less Personal history of diseases of blood and blood-forming organs Stroke determined by clinical assessment ([facility]) Right-sided sensory deficit present 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 ([facility]) Abnormal findings on imaging test Adenotonsillar hypertrophy Tonsillitis documented in this encounter Plan of Treatment Upcoming Encounters Date Type Department Care Team (Late st Contact Info) Description 01/30/2025 11:00 AM EDT Office Visit [facility] Physicians General Surgery [address] [place] [phone] Jennifer Bender, HSPT TUTOR-MOSQUITO SPRAYER [address] [place] [address] 02/07/2025 12:00 PM EDT Office Visit [facility] [address] [place] [phone] Cameron Soria PA [address] [facility], [address] [place] [address] 03/27/2025 11:00 AM EDT Office Visit [facility] Physicians Internal Medicine - Family Medicine [address] [place] [phone] Xavier Zamarripa, HSPT TUTOR-MOSQUITO SPRAYER [address], [address] [address] documented as of this encounter Visit Diagnoses Not on filedocumented in this encounter Administered Medications Inactive Administered Medications - up to 3 most recent administrations Medication Order MAR Action Action Date Dose Rate Site fentaNYL (SUBLIMAZE) injection intravenous, As needed, Starting on Thu01/16/25 at 1046, Anesthesia Intra-op Given 01/16/2025 10:54 AM EDT 50 mcg Given 01/16/2025 10:46 AM EDT 50 mcg lactated ringers infusion intravenous, Continuous PRN, Starting on Thu01/16/25 at 1038, Anesthesia Intra-op New Bag 01/16/2025 10:38 AM EDT lidocaine PF (XYLOCAINE) 20 mg/mL (2 %) injection intravenous, As needed, Starting on Thu01/16/25 at 1046, Anesthesia Intra-op Given 01/16/2025 10:46 AM EDT 60 mg midazolam (VERSED) injection intravenous, As needed, Starting on Thu01/16/25 at 1043, Anesthesia Intra-op Given 01/16/2025 10:43 AM EDT 2 mg ondansetron (PF) (ZOFRAN) injection intravenous, As needed, Starting on Thu01/16/25 at 1046, Anesthesia Intra-op Given 01/16/2025 10:46 AM EDT 4 mg propofoL (DIPRIVAN) infusion intravenous, As needed, Starting on Thu01/16/25 at 1046, Anesthesia Intra-op New Bag 01/16/2025 10:47 AM EDT 100 mcg/kg/min 61.5 mL/hr Given 01/16/2025 10:46 AM EDT 50 mg documented in this encounter Additional Health Concerns Assessment Noted Time PHQ-9 Depression Total Score: 0 10/21/19 3:36 PM EDT A Body Mass Index follow-up plan has been documented for the patient 10/24/2024 1:22 PM EDT documented as of this encounter Care Teams Shaker Flatwork Relationship Specialty Start Date End Date Xavier Zamarripa, HSPT TUTOR-MOSQUITO SPRAYER [address] [place] [address] PCP - General Internal Medicine 01/12/25 documented as of this encounter
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
[2025-01-25 19:34] VITALS: BP 175/108; PULSE 96; TEMP 36.7; O2SAT 98; BMI 29.2
--- OUTSIDE RECORDS SUMMARY | 2025-01-25 19:35 | XMS_ITS | Encounter Summary ---
Author Organization [facility] tem Address [id number] [address] [place] [address] Care Team Providers Care Tractor Operator Battery Name Role Phone Xavier Zamarripa WAYBILL CLERK-LINE SUPPLY Primary Care Provider + Encounter Details Date Type Department Care Team (Late st Contact Info) Description 05/22/2023 Orders Only [facility] Family [facility] [address] [place] [address] [place] [address] Britt Pelletier MD [address], [place] [address] Social History Tobacco Use Types [...] 11:00 AM EDT Office Visit [facility] General Surgery [address] [place] [address] Jennifer Bender WAYBILL CLERK-LINE SUPPLY [address] [place] [address] 02/07/2025 12:00 PM EDT Office Visit [facility] [address] [place] [phone] Cameron Soria PA [address] [place] [address] 03/27/2025 11:00 AM EDT Office Visit [facility] - Family Medicine [address] [place] [address] Xavier Zamarripa, WAYBILL CLERK-LINE SUPPLY [address], [address] [address] documented as of this encounter Visit Diagnoses Not on filedocumented in this encounter Additional Health Concerns Assessment Noted Time PHQ-9 Depression Total Score: 10 023 1:31 PM EST documented as of this encounter Care Teams Tractor Operator Battery Relationship Specialty Start Date End Date Xavier Zamarripa, WAYBILL CLERK-LINE SUPPLY [address] [place] [address] PCP - General Internal Medicine 01/12/25 documented as of this encounter
--- OUTSIDE RECORDS SUMMARY | 2025-01-25 19:35 | XMS_ITS | Encounter Summary ---
Author Organization [facility] tem Address [id number] [address] [place] [address] Care Team Providers Care Caponizer Name Role Phone Xavier Zamarripa SERVICE ADMINISTRATOR-BOILER ERECTOR Primary Care Provider + Encounter Details Date Type Department Care Team (Late st Contact Info) Description 12/09/2023 [facility]phone [facility] [address] [place] [phone] DezJael fields, FORESTRY PROFESSOR Social History Tobacco Use Types Packs/Day Years [...] PHQ-2 Answer Date Recorded Total Score 0 10/19/2023 Childcare Answer Date Recorded Childcare Unknown 11/24/2018 Employment Answer Date Recorded Employment Unknown 11/24/2018 Hunger Screening Answer Date Recorded Within the past 12 months we worried whether our food would run out before we got money to buy more. Never True 10/19/2023 Within the past 12 months th e food we bought just didn't last and we didn't have money to get more. Never True 10/19/2023 Purpose - Life Answer Date Recorded Purpose and direction in life Unknown Sex and Gender Information Value Date Recorded Sex Assigned at Not on file Legal Sex Male 12:00 PM EDT Gender Identity Not on file Sexual Orientation Not on file documented as of this encounter Miscellaneous Notes * Telephone Encounter - Jael Garces CMA - 12/09/2023 2:03 PM EDT Scar Mazariegos from [facility] social media specialist for [facility] called requesting you give her a call about this pt * Telephone Encounter - JUVE Cruz - 12/09/2023 2:03 PM EDT I do not have a telephone number / unable to find a number to call her * Telephone Encounter - Jael Garces CMA - 12/09/2023 2:03 PM EDT [phone] Her name is Scar mazariegos documented in this encounter Plan of Treatment Upcoming Encounters Date Type Department Care Team (Late st Contact Info) Description 01/30/2025 11:00 AM EDT Office Visit [facility] General Surgery [address] [place] [address] Jennifer Bender APRN-CNP [address] [place] [address] 02/07/2025 12:00 PM EDT Office Visit [facility] - Pain Management Clinic [address] [place] [address] Cameron Soria, MERLINE [address] [place] [address] 03/27/2025 11:00 AM EDT Office Visit [facility] Internal Medicine - Family Medicine [address] [place] [address] Xavier Zamarripa, SERVICE ADMINISTRATOR-BOILER ERECTOR [address] [place] [address] documented as of this encounter Visit Diagnoses Not on filedocumented in this encounter Additional Health Concerns Assessment Noted Time PHQ-9 Depression Total Score: 0 10/19/19 24 2:06 PM EDT A Body Mass Index follow-up plan has been documented for the patient 10/19/2023 2:49 PM EDT documented as of this encounter Care Teams Caponizer Relationship Specialty Start Date End Date Xavier Zamarripa, SERVICE ADMINISTRATOR-BOILER ERECTOR [address] [place] [address] PCP - General Internal Medicine 01/12/25 documented as of this encounter
--- OUTSIDE RECORDS SUMMARY | 2025-01-25 19:35 | XMS_ITS | Encounter Summary ---
Author Organization [facility] Address [id number] [address] [place] [address] Care Team Providers Care Vehicle Insurance Agent Name Role Phone Xavier Zamarripa SOAPING MACHINE BACK TENDER-COURT ADVOCATE Primary Care Provider + Encounter Details Date Type Department Care Team (Late st Contact Info) Description 01/15/2023 Telephone [facility] [address] [place] [address] [place] [address] Britt Pelletier MD [address], [place] [address] Social History Tobacco Use Types [...] Description 01/30/2025 11:00 AM EDT Office Visit [facility] General Surgery [address] [place] [phone] Jennifer Bender SOAPING MACHINE BACK TENDER-COURT ADVOCATE [address] [place] [address] 02/07/2025 12:00 PM EDT Office Visit [facility] - Pain Management Clinic [address] [place] [phone] Cameron Soria, MERLINE [address] [facility], [address]nd [place] [address] 03/27/2025 11:00 AM EDT Office Visit [facility] Internal Medicine - Family Medicine [address] [place] [address] Xavier Zamarripa, SOAPING MACHINE BACK TENDER-COURT ADVOCATE [address], [place] [phone] documented as of this encounter Visit Diagnoses Not on filedocumented in this encounter Additional Health Concerns Assessment Noted Time PHQ-9 Depression Total Score: 0 01/03/20 23 10:26 AM EDT documented as of this encounter Care Teams Vehicle Insurance Agent Relationship Specialty Start Date End Date Xavier Zamarripa, SOAPING MACHINE BACK TENDER-COURT ADVOCATE [address] [place] [address] PCP - General Internal Medicine 01/12/25 documented as of this encounter
--- OUTSIDE RECORDS SUMMARY | 2025-01-25 19:35 | XMS_ITS | Patient Health Record ---
Author Organization [facility] in [place] Address [address] [place] [address] Care Team Providers Care Dip Filler Name Role Phone Britt Pelletier Primary Care Provider Unavailabl e Provider, Lab Unavailable [phone] Tatyana Roque Unavailable [phone] Results Component Value Reference Range Notes ANTI - CARDIOLIPIN (ANTIPHOS PHOLIPID) ,IGG/IGA/IGM (Not yet reviewed by provider) Interpretation: Performing Lab:[facility], [address] [place], [address] [phone] Notes/Report: 4BLUE 3SST 1LAV FACILITY: [facility] [id number] CRYSTAL, IgG 3.9 (10.0 - 40.0) U/mL CRYSTAL, IgA 2.0 (14.0 - 20.0) U/mL CRYSTAL, IgM 1.8 (10.0 - 40.0) U/mL ELIECER (ANGIOTENSIN CONVERTING ENZYME) (Not yet reviewed by provider) Interpretation: Performing Lab:CB, [facility] Bstb1695 [facility], [facility] HospitalEsozKM[address] Meño Johns Notes/Report: FASTING:UNKNOWN FASTING: UNKNOWN VITAMIN B12 LEVEL (COBALAMIN ) (Not yet reviewed by provider) Interpretation: Performing Lab:[facility], [address] [place], [address] Notes/Report: 7SST 1TB 1NAHEP 1LAV FACILITY: [facility] [id number] VITAMIN B-12 577 (239 - 931) PG/ML RSEL-4-[id number] IGG,IGA, and IGM (Not yet reviewed by provider) Interpretation: Performing Lab:CHEN, [facility] Pvjy4204 [facility], Jarod EnnisEsozYB[address] Meño Johns Notes/Report: FASTING:UNKNOWN FASTING: UNKNOWN B2 [...] aging. For additional information, please refer to http://[employer].NameMedia.Labtiva/faq/LUA761 (This link is being provided for informational/ [...] aging. For additional information, please refer to http://education.Quvium/faq/IPY111 (This link is being provided for informational/ [...] aging. For additional information, please refer to http://education.NameMedia.Labtiva/faq/CQW363 (This link is being provided for informational/ educational purposes only.) ANTI - CCP (CYCLIC CITRULLIN ATED PEPTIDE AB) (Not yet reviewed by provider) Interpretation: Performing Lab:[facility], [address] [place], [address] [phone] Notes/Report: 4BLUE 3SST 1LAV FACILITY: [facility] [id number] CCP ANTIBODY <0.5 (0.0 - 4.9) U/mL CK (CPK) (Not yet reviewed b y provider) Interpretation: Performing Lab:[facility], [address] [place], [address] Notes/Report: 4BLUE 3SST 1LAV FACILITY: [facility] [id number] CPK 126 (55 - 170) U/L FERRITIN (Not yet reviewed b y provider) Interpretation: Performing Lab:[facility], [address] [place], [address] Notes/Report: 4BLUE 3SST 1LAV FACILITY: [facility] [id number] FERRITIN 48.4 (18.0 - 464.0) NG/ML HEPATITIS B CORE AB, TOTAL ( Not yet reviewed by provider) Interpretation: Performing Lab:[facility], [address] [place], [place], [address] [phone] Notes/Report: 7SST 1TB 1NAHEP 1LAV FACILITY: [facility] [id number] HEP B CORE AB NEG (NEG - NEG) HEPATITIS B CORE AB, IGM (No t yet reviewed by provider) Interpretation: Performing Lab:[facility], [address] [place], [place], [address] Notes/Report: 7SST 1TB 1NAHEP 1LAV FACILITY: [facility] [id number] HEPATITIS B CORE ANTIBODY, IGM NEG (NEG - NEG) HEPATITIS B SURFACE AB (HBSA B) (Not yet reviewed by provider) Interpretation: Performing Lab:[facility], [address] [place], [place], [address] Notes/Report: 7SST 1TB 1NAHEP 1LAV FACILITY: [facility] [id number] HEP B SURF AB NEG (NEG - NEG) HEPATITIS B SURFACE AG (HBSA G) (Not yet reviewed by provider) Interpretation: Performing Lab:[facility], [address] [place], [address] Notes/Report: 7SST 1TB 1NAHEP 1LAV FACILITY: [facility] [id number] HEP B VIPUL AG NEG (NEG - NEG) HEPATITIS C ANTIBODY (HCV) ( Not yet reviewed by provider) Interpretation: Performing Lab:[facility], [address] [place], [address] Notes/Report: 7SST 1TB 1NAHEP 1LAV FACILITY: [facility] [id number] HEPATITIS C ANTIBODY NEG (NEG - NEG) HLA-B27 (Not yet reviewed by provider) Interpretation: Performing Lab:CB, [facility] Exke8648 [facility], Jarod EnnisQnwwLS[address] Meño Johns Notes/Report: FASTING:UNKNOWN FASTING: UNKNOWN HLA-B27 ANTIGEN NEGATIVE NEGATIVE IGG SUBCLASSES (1,2,3 and 4) (Not yet reviewed by provider) Interpretation: Performing Lab:EZ, [facility]Jillian [facility],[address] Abhishek mohinder, Cross HillQphjzjgmthVV[address] Carmen Becker MD,PhD,JERZY Notes/Report: FASTING:UNKNOWN FASTING: UNKNOWN IMMUNOGLOBULIN G SUBCLASS 1 184 382-929 mg/dL IMMUNOGLOBULIN G SUBCLASS 2 61 241-700 mg/dL IMMUNOGLOBULIN G SUBCLASS 3 31 22-178 mg/dL IMMUNOGLOBULIN G SUBCLASS 4 6.1 4-86 mg/dL IMMUNOGLOBULIN G, SERUM 492 887-2287 mg/dL LUPUS ANTICOAGULANT (Not yet reviewed by provider) Interpretation: Performing Lab:[facility] [address], [facility] HospitalEsljPW[address] Meño Johns Notes/Report: FASTING:UNKNOWN FASTING: UNKNOWN LUPUS ANTICOAGULANT NOT DETECTED A Lupus Anticoagulant is not detected. For more information on this test, go to: http://education.Quvium/faq/CRC31f2 (This link is being provided for informational/ educational purposes only.) This interpretation is based on the following test results: PTT-LA SCREEN 26 < OR = 40 sec DRVVT SCREEN 29 < OR = 45 sec LYME TITER IGG and IGM (SCRE EN) (Not yet reviewed by provider) Interpretation: Performing Lab:CHEN [facility] [address], [facility] HospitalMlekIV[address] Meño Johns Notes/Report: FASTING:UNKNOWN FASTING: UNKNOWN LYME [...] (Not yet reviewed by provider) Interpretation: Performing Lab:[facility], [address] [place], [place], [address] Notes/Report: 7SST 1TB 1NAHEP 1LAV FACILITY: [facility] [id number] MAGNESIUM 2.0 (1.6 - 2.3) MG/DL JACKY SUBTYPE (8) (dsDNA, SSA, SSB, DUNHAM, RADIO ADJUSTER, SCL70,JO1,CENTOMERE) (Not yet reviewed by provider) Interpretation: Performing Lab:[facility], [address] [place], [place], [address] Notes/Report: PERFORMED ON MICHELLE ESPINOZA 12-01-2022 7SST 1TB 1NAHEP 1LAV FACILITY: [facility] [id number] ANTI ds DNA <0.6 (0.0 - 15.0) IU/ML SSA/RO52 <0.3 (0.0 - 10.0) U/mL SSA/RO60 <0.4 (0.0 - 10.0) U/mL ANTI SSB/LA <0.4 (0.0 - 10.0) U/mL ANTI DUNHAM <0.7 (0.0 - 10.0) U/mL ANTI RADIO ADJUSTER (U1RNP) 0.5 (0.0 - 10.0) U/mL ANTI SCL 70 <0.6 (0.0 - 10.0) U/mL ANTI DAMIEN-1 <0.3 (0.0 - 10.0) U/mL ANTI CENTROMERE B <0.4 (0.0 - 10.0) U/mL PHOSPHORUS (Not yet reviewed by provider) Interpretation: Performing Lab:[facility], [address] [place], [place], [address] [phone] Notes/Report: 4BLUE 3SST 1LAV FACILITY: [facility] [id number] PHOSPHORUS 4.0 (2.5 - 4.5) MG/DL PTH INTACT (PARATHYROID HORM ONE) (Not yet reviewed by provider) Interpretation: Performing Lab:[facility], [address] [place], [address] Notes/Report: 7SST 1TB 1NAHEP 1LAV FACILITY: [facility] [id number] PTH,INTACT 62.2 (10.0 - 86.5) PG/ML RHEUMATOID FACTOR (RHF) (Not yet reviewed by provider) Interpretation: Performing Lab:[facility], [address] [place], [address] Notes/Report: 7SST 1TB 1NAHEP 1LAV FACILITY: [facility] [id number] RF FACTOR 10 (0 - 12) IU/ML TOXOPLASMA GONDII AB, IGG (N ot yet reviewed by provider) Interpretation: Performing Lab:CHEN [facility] POPAPPYocmIO[address] Meño Johns Notes/Report: FASTING:UNKNOWN FASTING: UNKNOWN TOXOPLASMA ANTIBODY (IGG) 109.00 IU/mL Interpretation ------ <7.20 Negative 7.20-8.79 Equivocal >8.79 Positive A positive result indicates infection with Toxoplasma gondii at some time, but does not differentiate between an active or past infection. TOXOPLASMA GONDII AB, IGM (N ot yet reviewed by provider) Interpretation: Performing Lab:CHEN [facility] [facility] POPAPPNzhiTS[address] Meño Johns Notes/Report: FASTING:UNKNOWN FASTING: UNKNOWN TOXOPLASMA ANTIBODY (IGM) <8.00 AU/mL Interpretation ----- <8.00 Negative 8.00-9.99 Equivocal >9.99 Positive Physicians are advised to interpret the results of anti-Toxoplasma IgM tests with caution, and should not rely on any single test result as the sole determinant in diagnosing recently acquired infection. TTG, IGA (TISSUE TRANSGLUTAM INASE, IGA) (Not yet reviewed by provider) Interpretation: Performing Lab:[facility], [address] [place], [address] [phone] Notes/Report: REFERENCE RANGE ANTI-TTG, IGA: < 7.0 U/mL = NEGATIVE 7.0 - 10.0 U/mL = BORDERLINE > 10.0 U/mL = POSITIVE PERFORMED ON PHADIA EFFECTIVE 08-30-2021 7SST 1TB 1NAHEP 1LAV FACILITY: [facility] [id number] ANTI-TTG, IGA 0.3 (0.0 - 10.0) U/mL URIC ACID (Not yet reviewed by provider) Interpretation: Performing Lab:[facility], [address] [place], [address] Notes/Report: 7SST 1TB 1NAHEP 1LAV FACILITY: [facility] [id number] URIC ACID 4.8 (3.5 - 8.5) MG/DL VITAMIN D, 25 LEVEL (TOTAL) (Not yet reviewed by provider) Interpretation: Performing Lab:[facility], [address] [place], [address] Notes/Report: * * * VITAMIN D, 25 HYDROXY GENERAL GUIDELINE * * * DEFICIENCY = < OR = 20.0 NG/ML INSUFFICIENCY = 20.1 - 29.9 NG/ML SUFFICIENCY = 30.0 - 100.0 NG/ML TOXICITY = > 100.1 NG/ML 7SST 1TB 1NAHEP 1LAV FACILITY: [facility] [id number] VITAMIN D, 25 23.3 (30.0 - 100.0) NG/ML VITAMIN C (ASCORBIC ACID) (N ot yet reviewed by provider) Interpretation: Performing Lab:AMD, [facility]illian [facility] MU09024 Piedad Pop, UnvufbqlnEW[address] David Narayan M.D.,PhD Notes/Report: FASTING:UNKNOWN FASTING: UNKNOWN T4 FREE and TSH (Not yet rev iewed by provider) Interpretation: Performing Lab:[facility], [address] [place], [address] Notes/Report: 4BLUE 3SST 1LAV FACILITY: [facility] [id number] T4 - FREE 1.10 (0.64 - 1.79) UG/DL hTSH 3.26 (0.470 - 4.680) mIU/L SED RATE and CRP (Not yet re viewed by provider) Interpretation: Performing Lab:[facility], [address] [place], [address] Notes/Report: 4BLUE 3SST 1LAV FACILITY: [facility] [id number] SED RATE WEST. 7 (0 - 24) MM/HR CRP EXTENDED RANGE 9.47 (0.00 - 5.00) MG/L JACKY with TITER (Not yet revi ewed by provider) Interpretation: Performing Lab:[facility], [address] [place], [address] Notes/Report: 7SST 1TB 1NAHEP 1LAV FACILITY: [facility] [id number] JACKY by HEp-2 CELLS POS (NEG - NEG) JACKY TITER 1:80 (<1:40 - 1:40) JACKY PATTERN = SPECKLED TB GOLD PLUS, QUANTIFERON (N ot yet reviewed by provider) Interpretation: Performing Lab:CHEN, [facility]1355 [facility], [facility] HospitalBiepZD[address] Meño Johns Notes/Report: QUANTIFERON(R)-TB GOLD PLUS, 1 [...] T-lymphocytes. For additional information, please refer to https://education.[facility].com/faq/VPR182 (This link is being provided for informational/ educational purposes only.) COPY RECEIVED FROM: (Not yet reviewed by provider) Interpretation: Performing Lab: Notes/Report: FASTING:UNKNOWN FASTING: UNKNOWN COPY RECEIVED FROM: [facility] CHRISTINA [address] [place] [address] HIV-1 and 2 AG and AB SCREEN , 4TH GEN (Not yet reviewed by provider) Interpretation: Performing Lab:[facility], [address] [place], [address] Notes/Report: 7SST 1TB 1NAHEP 1LAV FACILITY: [facility] [id number] HIV-1/2 AG & AG NEG (NEG - -) ANCA SCREEN WITH REFLEX TO T ITER (Not yet reviewed by provider) Interpretation: Performing Lab:CHEN, [facility] [address], [place] YlkhGZ[address] Meño Johns Notes/Report: FASTING:UNKNOWN FASTING: UNKNOWN ANCA [...] yet revie wed by provider) Interpretation: Performing Lab:[facility], [address] [place], [address] Notes/Report: SYPHILIS EXPECTED RESULTS QUALITATIVE DETECTION OF [...] BE RUN. 7SST 1TB 1NAHEP 1LAV FACILITY: [facility] [id number] SYPHILIS ABS NEG () CBC WITH DIFF (Not yet revie wed by provider) Interpretation: Performing Lab:[facility], [address] [place], [address] [phone] Notes/Report: 7SST 1TB 1NAHEP 1LAV FACILITY: [facility] [id number] WBC 7.75 (3.80 - 10.60) x10^3ul RBC [...] Interpretation: Performing Lab: Notes/Report: COPY RECEIVED FROM: [facility] [address] [place] [address] COPY RECEIVED FROM: (Not yet reviewed by provider) Interpretation: Performing Lab: Notes/Report: FASTING:UNKNOWN FASTING: UNKNOWN COPY RECEIVED FROM: [facility] [address] [place] [address] COPY RECEIVED FROM: (Not yet reviewed by provider) Interpretation: Performing Lab: Notes/Report: FASTING:UNKNOWN FASTING: UNKNOWN COPY RECEIVED FROM: [facility] [address] [place] [address] CMP (COMP MET ALVA) w/eGFR CK D-EPI (Not yet reviewed by provider) Interpretation: Performing Lab:[facility], [address] [place], [address] [phone] Notes/Report: 7SST 1TB [facility] 1[facility]: [facility] [id number] GLUCOSE 70 (74 - 106) MG/DL BUN [...] BILIRUBIN, TOT 0.3 (0.2 - 1.3) MG/DL IMMUNOFIXATION-SIEP, BLOOD ( SEP,IGAM,IFIX) (Not yet reviewed by provider) Interpretation: Performing Lab:[facility], [address] [place], [address] Notes/Report: 7SST 1TB [facility] 1[facility]V FAC[facility]: [facility] [id number] IgG, TOTAL 314 (700 - 1600) MG/DL [...] ALBUMIN (SEP) 4.6 (3.5 - 5.0) G/DL COPY RECEIVED FROM: (Not yet reviewed by provider) Interpretation: Performing Lab: Notes/Report: FASTING:UNKNOWN FASTING: UNKNOWN COPY RECEIVED FROM: [facility] [address] [place] [address] PROCALCITONIN (PCT) (Not yet reviewed by provider) Interpretation: Performing Lab:EZ, [facility],[address] [address] [facility] CenterOsmauliizkHB[address] Carmen Becker MD,PhD,JERZY Notes/Report: FASTING:UNKNOWN FASTING: UNKNOWN [...] patient. For additional information, please refer to http://education.NameMedia.com/faq/FAQ46 (This link is being provided for informational/educational purposes only.) Reason For Referral No Information Encounters Encounter Location Date Provider Diagnosis [facility] [place] [address] [place] [phone] 11/14/2024 Lab Provider [facility] [place] [address] [place] [phone] 11/14/2024 Tatyana Mac [facility]umat[facility] Side [address] [place] [address] 12/21/2024 Tatyana Roque Plan Of Treatment Pending Test [...] ENZYME) 07/2024 VITAMIN B12 LEVEL (COBALAMIN) 11/14/2024 [id number] IGG,IGA,and IGM 07/2024 ANTI - CCP (CYCLIC [...] JACKY SUBTYPE (8) (dsDNA, SSA, SSB, DUNHAM, RADIO ADJUSTER, SCL70,JO1,CENTOMERE) 11/14/2024 IMMUNOFIXATION-SIEP, BLOOD (SEP,IGAM,IFI X) 11/14/2024 [...] 11/14/2024 Next Appt Details Provider Name:Tatyana Roque, 12/20/2025 02:45:00 PM, [address] [place] [address], [phone], Insurance Providers Payer Name Payer Address Payer Phone Subscriber Number Group Number Insured Name Patient Relationship to Insured Coverage Start Date Coverage End Date [employer] [place] [employer] [address] [address] [place] [address] [id number] Johan Seay Self - patient is the insured 3
--- OUTSIDE RECORDS SUMMARY | 2025-01-25 19:35 | XMS_ITS | Encounter Summary ---
Author Organization [employer] s tem Address [id number] [address] [place] [address] Care Team Providers Care Horse Identifier Name Role Phone Xavier Zamarripa PARAPROFESSIONAL AIDE TEACHER-GEAR REPAIRER Primary Care Provider + Encounter Details Date Type Department Care Team (Late Contact Info) Description 02/03/2023 Orders Only [facility] [address] [place] [phone] Britt Pelletier MD [address] [place], [place] [phone] Social History Tobacco Use Types Packs/Day Years [...] Department Care Team (Late Contact Info) Description 01/30/2025 11:00 AM EDT Office Visit [facility] General [facility] [address] [place] [address] Jennifer Bender PARAPROFESSIONAL AIDE TEACHER-GEAR REPAIRER [address] [place] [address] 02/07/2025 12:00 PM EDT Office Visit [facility] [address] [place] [id number] Cameron Soria, MERLINE [address] [place] [address] 03/27/2025 11:00 AM EDT [facility] [address] [place] [address] Xavier Zamarripa, PARAPROFESSIONAL AIDE TEACHER-GEAR REPAIRER [address], [address] [address] documented as of this encounter Visit Diagnoses Not on filedocumented in this encounter Additional Health Concerns Assessment Noted Time PHQ-9 Depression Total Score: 0 01/03/20 23 10:26 AM EDT documented as of this encounter Care Teams Horse Identifier Relationship Specialty Start Date End Date Xavier Zamarripa, PARAPROFESSIONAL AIDE TEACHER-GEAR REPAIRER [address] [place] [address] PCP - General Internal Medicine 01/12/25 documented as of this encounter
--- OUTSIDE RECORDS SUMMARY | 2025-01-25 19:35 | XMS_ITS | Clinical Summary ---
Author Organization [facility] Address [address] [place], [place] [id number] Care Team Providers Care Gun Examiner Name Role Phone Ruy Gastelum MD, PhD Unavailable [phone] Lupis Bass (Eitan) Unavailable [phone] Hannah Henson MD Unavailable [phone] Simran Ortiz APRN.FINGERPRINT CLASSIFIER Unavailable + Marialuisa Portillo RN Unavailable Unavail [...] pleural effusion/mucus plugging. He was transferred to [facility] d/t concern for sepsis possibly 2/2 [...] following, appreciate recs Dispo: - Transfer to [facility] - Plan discussed with MICU team [...] Compazine (minimal use) Hodgkin's disease 11/18/2016 02/11/2017 Immunizations Immunization Administration Dates Next Due Haemophilus [...] Date Smoking Tobacco: Every Day Cigarettes 0.5 35.2 Started: 12/01/1989 Passive Smoke Exposure: Current Smokeless [...] is lower risk 5 07/29/2023 Data from: https://www.neighborhoodatlas.medicine.[facility].edu/. Last address used for calculation [address] [place] [address] [address] 07/29/2023 Sex and Gender Information [...] Health Maintenance Due Date Last Done Comments Annual PCP Team Chronic Dise ase Visit 1997 HPV Vaccine (1 - Risk 3-dose SCDM series) 2006 Hepatitis B Vaccine (3 of 3 - Hep B Twinrix 3-dose series) 05/22/2019 12/20/2018, 09/10/2018 Pneumococcal Vaccine (3 of 3 - PCV20 or PCV21) 07/21/2023 12/20/2018, 07/21/2018 Lipid Screening 12/05/2023 12/04/2018, 12/08/2016 CT Colonography 2024 Cologuard (FIT-DNA) 2024 Colonoscopy 2024 Colorectal Cancer Screening 2024 Fecal Occult Blood 2024 Sigmoidoscopy 2024 Influenza Vaccine (#1) 2025 07/21/2018, 2016 Diabetes Screening 01/03/2027 01/04/2024, 0 08/12/2023, 11/29/2022, [...] METABOLIC PANEL (01/04/2024 11:57 AM EDT) Pathologist [facility] Protein, Total 7.2 6.3 - 8.0 g/dL 01/04/2024 12:28 PM EDT [facility] Albumin 4.8 3.9 - 4.9 g/dL 01/04/2024 12:28 PM EDT [facility] Calcium, Total 10.0 8.5 - 10.2 mg/dL 01/04/2024 12:28 PM EDT [facility] Bilirubin, Total 0.3 0.2 - 1.3 mg/dL 01/04/2024 12:28 PM EDT [facility] Alkaline Phosphatase 103 38 - 113 U/L 01/04/2024 12:28 PM EDT [facility] AST 24 14 - 40 U/L 01/04/2024 12:28 PM EDT [facility] ALT 53 10 - 54 U/L 01/04/2024 12:28 PM EDT [facility] Glucose 92 74 - 99 mg/dL 01/04/2024 12:28 PM EDT [facility] Comment: The [place] Diabetes Association (ADA) provides guidance for cutoff [...] Standards of Medical Care in Diabetes 2016, [place] Diabetes Association. Diabetes Care. 2016.39(Suppl 1). BUN 18 9 - 24 mg/dL 01/04/2024 12:28 PM EDT [facility] Creatinine 1.23(H) 0.73 - 1.22 mg/dL 01/04/2024 12:28 PM EDT [facility] Sodium 141 136 - 144 mmol/L 01/04/2024 12:28 PM EDT [facility] Potassium 4.4 3.7 - 5.1 mmol/L 01/04/2024 12:28 PM EDT [facility] Chloride 103 98 - 107 mmol/L 01/04/2024 12:28 PM EDT [facility] CO2 28 22 - 30 mmol/L 01/04/2024 12:28 PM EDT [facility] Anion Gap 10 8 - 15 mmol/L 01/04/2024 12:28 PM EDT [facility] Estimated Glomerular Filtration Rate 74 >=60 mL/min/1. 73m 01/04/2024 12:28 PM T [facility] Comment:Estimated Glomerular Filtration Rate (eGFR) is [...] 11:57 AM EDT 01/04/2024 12:06 PM EDT Rich Delgado MD LABORATORY Final Result [facility] [address] [place] [address] * HEPATITIS C ANTIBODY IA WITH CONFIRMATION (08/12/2023 12:52 PM EST) Pathologist [facility] Hep C Antibody IA Negative Negative 08/13/2023 1:04 PM EST [facility] Comment:The result suggests no evidence of active infection with Hepatitis C virus. Should recent infection be suspected, repeat testing may be considered 4-6 weeks after this draw. Blood BLOOD SPECIMEN / Unknown Venipuncture / Unknown 08/12/2023 12:52 PM EST 08/12/2023 12:52 PM EST us Rich Delgado MD LABORATORY Final Result [facility] [id number] [place] [address], [place] * IDM PANEL ADULT (01/19/2017 2:35 PM EDT) [facility] HBsAg Negative or Nonreactive Negative or Nonreactive 01/22/2017 8:45 AM EDT [facility] anti-HCV Negative or Nonreactive Negative or Nonreactive 01/22/2017 8:45 AM EDT [facility] anti-HIV1/2 Negative or Nonreactive Negative or Nonreactive 01/22/2017 8:45 AM EDT [facility] anti-HBc Negative or Nonreactive Negative or Nonreactive 01/22/2017 8:45 AM EDT [facility] anti-HTLV I/II Negative or Nonreactive Negative or Nonreactive 01/22/2017 8:45 AM EDT [facility] STS Negative or Nonreactive Negative or Nonreactive 01/22/2017 8:45 AM EDT [facility] CMV Negative or Nonreactive Negative or Nonreactive 01/22/2017 8:45 AM EDT [facility] HIVNAT Negative or Nonreactive Negative or Nonreactive 01/22/2017 8:45 AM EDT [facility] HCVNAT Negative or Nonreactive Negative or Nonreactive 01/22/2017 8:45 AM EDT [facility] HBVNAT Negative or Nonreactive Negative or Nonreactive 01/22/2017 8:45 AM EDT [facility] WNVNAT Negative or Nonreactive Negative or Nonreactive 01/22/2017 8:45 AM EDT [facility] Chagas Negative or Nonreactive Negative or Nonreactive 01/22/2017 8:45 AM EDT [facility] Expiration of IDM [id number] 01/22/2017 8:45 AM EDT [facility] Comment: Test kits are FDA approved for Donor Screening Testing. Test performed by: [facility], [address] [place] [id number], CLIA No. [id number]. Blood specimen (specimen) BLOOD SPECIMEN / Unknown 01/19/2017 2:35 PM EDT 01/19/2017 2:50 PM EDT us Ruy Gastelum MD, PhD LABORATORY Final Resul t [facility] [address] [facility] [place] [address] * (ABNORMAL) LIPID PANEL BASIC (12/08/2016 9:51 AM EDT) Triglyceride 122 30 - 149 mg/dL 12/08/2016 11:42 AM EDT [facility] Cholesterol, Total 219(H) 100 - 199 mg/dL 12/08/2016 11:42 AM EDT [facility] HDL Cholesterol 52 >45 mg/dL 7 11:42 AM EDT [facility] VLDL Cholesterol 24 6 - 40 mg/dL 12/08/2016 11:42 AM EDT [facility] LDL Cholesterol, Calculated 143(H) 60 - 129 mg/dL 12/08/2016 11:42 AM EDT [facility] Fasting Time 12 hrs 12/08/2016 9:53 AM EDT [facility] TC:HDL Ratio 4.21 1.00 - 5.00 12/08/2016 11:42 AM EDT [facility] LDL:HDL Ratio 2.75 0.50 - 3.55 12/08/2016 11:42 AM EDT [facility] Non HDL Cholesterol 167(H) 90 - 159 mg/dL 12/08/2016 11:42 AM EDT [facility] Blood specimen (specimen) BLOOD SPECIMEN / Unknown 12/08/2016 9:51 AM EDT 12/08/2016 9:53 AM EDT Hannah Henson MD LABORATORY Final Result [facility] [address] [place] [address] from Last 3 Months or Most Recently Relevant to Health Maintenance Insurance [place] [employer] [place] Advance Directives Documents on File Type Date Recorded Patient Museum Specialist Expl anation Advance Directive(s) 11/19/2016 3:00 PM Care Teams Gun Examiner Relationship Specialty Start Date End [place] [address] [place] [address] Physician Blood and Marrow Transplant 11/17/16 Lupis Bass () [address] [place], [place] [id number] Ladle Handler Blood and Marrow Transplant 01/07/17 Hannah Henson MD [address] [place] [address] Primary Staff Physician Cardiology 08/31/18 Simran Ortiz, ACUTE CARE PHYSICAL THERAPIST.FINGERPRINT CLASSIFIER [address] [place] [address] [place] [address] Hospice & Palliative Medicine 08/19/23 Marialuisa Portillo, RN Specialty Medical Staffing Coordinator Hospice & Palliative Medicine 08/19/23
--- OUTSIDE RECORDS SUMMARY | 2025-01-25 19:36 | XMS_ITS | Encounter Summary ---
Author Organization [facility] tem Address [id number] [address] [place] [address] Care Team Providers Care Back Shoe Cutter Name Role Phone Xavier Zamarripa INTEGRATION ASSISTANT-AGRICULTURAL EXTENSION AGENT Primary Care Provider + Encounter Details Date Type Department Care Team (Late st Contact Info) Description 12/30/2024 Results Follow-Up [facility] - Ultrasound [address] [place] [place] [address] Sal Pham MD [address] [place] [address] [address] [place] [phone] Surgical Pathology - Tissue (Biopsy), Flow Cytometry, Varies Social History Tobacco Use Types Packs/Day Years [...] Description 01/30/2025 11:00 AM EDT Office Visit [facility] Physicians General Surgery [address] [place] [address] Jennifer Bender INTEGRATION ASSISTANT-AGRICULTURAL EXTENSION AGENT [address] [place] [address] 02/07/2025 12:00 PM EDT Office Visit [facility] - Pain Management Clinic [address] [place] [phone] Cameron Soria, MERLINE [address] [facility] [place] [address] 03/27/2025 11:00 AM EDT Office Visit [facility] Physicians Internal Medicine - Family Medicine [address] [place] [address] Xavier Zamarripa, INTEGRATION ASSISTANT-AGRICULTURAL EXTENSION AGENT [address], [address] [address] documented as of this encounter Visit Diagnoses Not on filedocumented in this encounter Additional Health Concerns Assessment Noted Time PHQ-9 Depression Total Score: 0 10/21/19 25 3:36 PM EDT A Body Mass Index follow-up plan has been documented for the patient 10/24/2024 1:22 PM EDT documented as of this encounter Care Teams Back Shoe Cutter Relationship Specialty Start Date End Date Xavier Zamarripa, INTEGRATION ASSISTANT-AGRICULTURAL EXTENSION AGENT [address] [place] [address] PCP - General Internal Medicine 01/12/25 documented as of this encounter
--- OUTSIDE RECORDS SUMMARY | 2025-01-25 19:36 | XMS_ITS | Encounter Summary ---
Author Organization [employer] tem Address [id number] [address] [place] [address] Care Team Providers Care Embedded Software Development Engineer Name Role Phone Xavier Zamarripa REMOTE COMPUTER TERMINAL OPERATOR-BOILER HOUSE SUPERVISOR Primary Care Provider + Encounter Details Date Type Department Care Team (Latest Contact Info) Description 01/23/2025 Travel Social History Tobacco Use Types Packs/Day [...] Description 01/30/2025 11:00 AM EDT Office Visit [facility] Physicians General Surgery [address] [place] [phone] Jennifer Bender APRN-BOILER HOUSE SUPERVISOR [address] [facility] [place] [address] 02/07/2025 12:00 PM EDT Office Visit [facility] - Pain Management Clinic [address] [place] [phone] Cameron Soria PA [address] [place] [address] 03/27/2025 11:00 AM EDT Office Visit [facility] Physicians Internal Medicine - Family Medicine [address] [place] [address] Xavier Zamarripa, REMOTE COMPUTER TERMINAL OPERATOR-BOILER HOUSE SUPERVISOR [address], [address] [address] documented as of this encounter Visit Diagnoses Not on filedocumented in this encounter Additional Health Concerns Assessment Noted Time PHQ-9 Depression Total Score: 0 10/21/19 3:36 PM EDT A Body Mass Index follow-up plan has been documented for the patient 10/24/2024 1:22 PM EDT documented as of this encounter Care Teams Embedded Software Development Engineer Relationship Specialty Start Date End Date Xavier Zamarripa, REMOTE COMPUTER TERMINAL OPERATOR-BOILER HOUSE SUPERVISOR [address] [place] [address] PCP - General Internal Medicine 01/12/25 documented as of this encounter
--- OUTSIDE RECORDS SUMMARY | 2025-01-25 19:36 | XMS_ITS | Encounter Summary ---
Author Organization [employer] tem Address [id number] [address] [place] [address] Care Team Providers Care Systems Program Manager Name Role Phone Xavier Zamarripa Morales PATIENT ACCESS SPECIALIST-NURSING SCHEDULER Primary Care Provider + Encounter Details Date Type Department Care Team (Late st Contact Info) Description 10/26/2024 [facility]phone [facility] Internal Medicine - Family Medicine [address] [place] [phone] Cara Hernandez, JOAN Social History Tobacco Use [...] wants to go to Dr. Rand in [place] for his cancer care. Pt's partner Naida called in stating this. * Telephone Encounter - JUVE Cruz - 10/26/2024 12:40 PM EDT done documented in this encounter Plan of Treatment Upcoming Encounters Date Type Department Care Team (Late st Contact Info) Description 01/30/2025 11:00 AM EDT Office Visit [facility] Physicians General Surgery [address] [place] [phone] Jennifer Bender, PATIENT ACCESS SPECIALIST-NURSING SCHEDULER [address] [place] [address] 02/07/2025 12:00 PM EDT Office Visit [facility] - Pain Management Clinic [address] [place] [phone] Cameron Soria, PA [address] [facility] [place] [address] 03/27/2025 11:00 AM EDT Office Visit [facility] Physicians Internal Medicine - Family Medicine [address] [place] [phone] Xavier Zamarripa, PATIENT ACCESS SPECIALIST-NURSING SCHEDULER [address], [address] [id number] documented as of this encounter Visit Diagnoses Not on filedocumented in this encounter Additional Health Concerns Assessment Noted Time PHQ-9 Depression Total Score: 0 10/21/19 3:36 PM EDT A Body Mass Index follow-up plan has been documented for the patient 10/24/2024 1:22 PM EDT documented as of this encounter Care Teams Systems Program Manager Relationship Specialty Start Date End Date Xavier Zamarripa APRN-NURSING SCHEDULER [address] [place] [address] PCP - General Internal Medicine 01/12/25 documented as of this encounter
--- OUTSIDE RECORDS SUMMARY | 2025-01-25 19:36 | XMS_ITS | CCD ---
Author Organization [facility] Care Team Providers Care Naturopathic Oncology Provider Name Role Phone RODRICK MARTINEZ Attending Unavailable CHIRRI, IQRA Consulting Unavailable CHIRRI, IQRA Admitting Unavailable CHIRRI, IQRA Attending Unavailable PARINJA, DEANNA Admitting Unavailable PARINJA, DEANNA Attending Unavailable CASSIE MOREIRA Consulting Unavailable PROVIDER, NONE Primary Care Unavailable ESTEBAN REYES Attending Unavailable PROVIDER, NONE Primary Care Unavailable SONJA CAGLE C Consulting Unavailable Dilcia Ramirez Primary Care Provider Nirav DIEGO, PhD, Ruy Marlow Unavailable [phone] Lupis Bass (Bogdan) Unavailable Hannah Henson MD Unavailable Hannah Henson MD Unavailable [phone] Nirav DIEGO, PhD, Ruy T Unavailable Lupis Bass (Bogdan) Unavailable Hannah Henson MD Unavailable Sirman Nelson APRN.CNP Unavailable Bandar FLORES, Marialuisa Moreno Unavailable Unavail able SHANTHI LU Referring Unavailable SHANTHI LU Primary Care Unavailable AMINAH, REHAB Referring Unavailable SHANTHI LU Primary Care Unavailable AMINAH, REHAB Admitting Unavailable AMINAH, REHAB Attending Unavailable SHANTHI LU Primary Care Unavailable SHANTHI LU Primary Care Unavailable Aly SPRIGGER-Shanthi PULLIAM Primary Care Provid er Aly SPRIGGER-Shanthi PULLIAM Primary Care Provid er TOBI PLATA Attending Unavailable TOBI PLATA Referring Unavailable SIMRAN NELSON Attending Unavailterri e SIMRAN NELSON Referring Unavailabl e RICH HILL Referring Unavailable RICH HILL Attending Unavailable Lu SPRIGGER-HERACLIO, Shanthi Carney Primary Care Provid er SHANTHI LU J Referring Unavailable LU, SHANTHI J Primary Care Unavailable AMINAH, REHAB Attending Unavailable LUMORENITASHANTHI J Referring Unavailable LU, SHANTHI J Primary Care Unavailable LU, SHANTHI J Attending Unavailable LU, SHANTHI J Referring Unavailable LU, SHANTHI J Primary Care Unavailable FORTUNATO BALDERRAMA Attending Unavailable OLIVA CORNELL Referring Unavailable LU, SHANTHI J Primary Care Unavailable FORTUNATO BALDERRAMA Referring Unavailable LU, SHANTHI J Primary Care Unavailable FORTUNATO BALDERRAMA Referring Unavailable LU, SHANTHI J Primary Care Unavailable FORTUNATO BALDERRAMA Referring Unavailable LU, SHANTHI J Primary Care Unavailable LUDEREK SANCHEZE J Attending Unavailable LU, SHANTHI J Referring Unavailable LU, SHANTHI J Primary Care Unavailable CLEMENTE JUSTICE Attending Unavailable VALDEMAR GARCIA Referring Unavailable LU, SHANTHI J Primary Care Unavailable No Pcp, No Pcp Primary Care Provider UnavailMiah Saini Primary Care Provider VALDEMAR GARCIA Attending Unavailable LUMORENITA SANCHEZERIE J Referring Unavailable LU, SHANTHI J Primary Care Unavailable VALDEMAR GARCIA Referring Unavailable LU, SHANTHI J Primary Care Unavailable VALDEMAR GARCIA Referring Unavailable LU, SHANTHI J Primary Care Unavailable VALDEMAR GARCIA Attending Unavailable LU, SHANTHI J Referring Unavailable LU, SHANTHI J Primary Care Unavailable VALDEMAR GARCIA Attending Unavailable VALDEMAR GARCIA Referring Unavailable LU, SHANTHI J Primary Care Unavailable CLEMENTE JUSTICE Referring Unavailable NO PCP, NO PCP Primary Care Unavailable DILCIA GRIMALDO Attending Unavailable DILCIA GRIMALDO Referring Unavailable NO PCP, NO PCP Primary Care Unavailable CLEMENTE JUSTICE Admitting Unavailable CLEMENTE JUSTICE Attending Unavailable CLEMENTE JUSTICE Referring Unavailable LU, SHANTHI J Primary Care Unavailable VALDEMAR GARCIA Attending Unavailable LU, SHANTHI J Referring Unavailable MIAH ZAMARRIPA Primary Care Unavailable Allergies Allergy Classification Reported Allergen(s) Allergy Type Date of Onset Reaction(s) Facility Penicillins (antibiotic) (1 source) Amoxicillin Drug Allergy 07-12-19 19 Swelling [facility] Work Phone: Sulfamethoxazole / Trimethoprim (1 source) Sulfamethoxazole / Trimethoprim Drug Allergy 05-12-20 16 [facility] Work Phone: (20 sources) Amoxicillin; Translations: [AMOXICILLIN] Drug Allergy 07-11-19 19 Swelling, Hives, Itching [facility] Work Phone: (20 sources) Sulfamethoxazole / Trimethoprim; Translations: [SULFAMETHOXAZOLE-T RIMETHOPRIM] Drug Allergy 05-12-20 16 [facility] Work Phone: (20 sources) Sulfamethoxazole; Translations: [SULFAMETHOXAZOLE] Drug Allergy 01-13-20 13 [facility] (20 sources) CONTACT METAL AGENT; Translations: [CONTACT METAL AGENT] Propensity to adverse reactions to food (disorder) 01-04-20 21 Itching, Rash [facility] Medications Current Medications Medication Drug Class(es) Dates Sig (Normalized) Sig (Original) acetaminophen 500 mg oral tablet (2 sources) Start: 01-16-2025 take 2 tablets by mouth every six hours acetaminophen (TYLENOL EXTRA STRENGTH) 500 mg tablet Take 2 tablets (1,000 mg total) by mouth every 6 (six) hours. 30 tablet 01/16/2025 Active aspirin 81 mg delayed release oral tablet (20 sources) Platelet Aggregation Inhibitor, Nonsteroidal Anti-inflammatory Drug aspirin 81 mg Take 1 tablet (81 mg total) by mouth as needed. Last dose 01/30/24 Active 168 hr buprenorphine 0.005 mg/hr transdermal system (20 sources) Partial Opioid Agonist Start: 01-22-2024 End: 01-22-2024 apply 1 dose transdermal route every week buprenorphine (BUTRANS) 10 mcg/hour Indications: Neoplasm related pain Apply 1 Patch as directed one time a week for 30 days. 4 Patch 0 01/22/2024 01/22/2024 Discontinued Start: 08-11-2023 End: 02-21-2024 apply 1 dose transdermal route every week buprenorphine (BUTRANS) 5 mcg/hour Indications: Neoplasm related pain , Osteoarthritis of spine, unspecified spinal osteoarthritis complication status, unspecified spinal region Apply 1 Patch as directed one time a week for 30 days. 4 Patch 01/22/2024 Active Comment on above: Apply 1 Patch as dir ected one time a week for 30 days. 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 15 capsule 01/19/2025 01/24/2025 Active cyclobenzaprine hydrochloride 10 mg oral tablet (20 sources) Muscle Relaxant Start: End: take 1 tablet by mouth twice daily as needed for muscle spasms cyclobenzaprine (FLEXERIL) 10 mg tablet Indications: Muscle spasm Take 1 tablet (10 mg total) by mouth 2 (two) times a day as needed for muscle spasms. 40 tablet 2 12/15/2023 Active Start: 01-06-2023 End: 10-19-2023 take 1 tablet by mouth three times daily as needed for muscle spasms cyclobenzaprine (FLEXERIL) 10 mg tablet Take 1 tablet (10 mg total) by mouth 3 (three) times a day as needed for muscle spasms. 21 tablet 01/06/2023 10/19/2023 Discontinued (Reorder) Start: 01-06-2023 End: 08-11-2023 cyclobenzaprine (FLEXERIL) 1 0 mg tablet Take 10 mg by mouth. 0 01/06/2023 08/11/2023 Discontinued Comment on above: Take 10 mg by mouth. docusate sodium 50 mg / sennosides, nursing home 8.6 mg oral tablet (20 sources) Start: End: take 1 tablet by mouth once daily senna-docusate (SENNA-S) 8.6-50 mg per tablet Indications: Neoplasm related pain , Drug-induced constipation Take 1 tablet by mouth once daily. 30 tablet 3 08/11/2023 Active Comment on above: Take 1 tablet by herminia th once daily. 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 3 tablet 01/19/2025 01/22/2025 Active gabapentin 300 mg oral capsule (20 sources) Anti-epileptic Agent Start: take 1 capsule by mouth three times daily gabapentin (NEURONTIN) 300 mg capsule Indications: Chronic midline low back pain with sciatica, sciatica laterality unspecified Take 1 capsule (300 mg total) by mouth 3 (three) times a day. 90 capsule 3 10/20/2024 Active Start: 10-19-2023 End: 07-25-2024 take 1 capsule by mouth three times daily gabapentin (NEURONTIN) 300 mg capsule Take 1 capsule by mouth three times a day for 30 days. 90 capsule 01/22/2024 Active ibuprofen 600 mg oral tablet (20 sources) Nonsteroidal Anti-inflammatory Drug Start: 01-16-2025 take 1 tablet by mouth every six hours ibuprofen (MOTRIN) 600 mg tablet Take 1 tablet (600 mg total) by mouth every 6 (six) hours. 30 tablet 01/16/2025 Active Start: 12-15-2023 take 1 tablet by herminia th every eight hours as needed for pain ibuprofen (MOTRIN) 800 mg tablet Indications: Chronic left hip pain Take 1 tablet (800 mg total) by mouth every 8 (eight) hours as needed for pain. 60 tablet 12/15/2023 Active Start: 05-21-2023 End: 01-22-2024 take 1 tablet by mouth every eight hours as needed ibuprofen (MOTRIN) 800 mg tablet Take 800 mg by mouth three times a day as needed. 12/15/2023 Active Comment on above: Take 800 mg by mouth . lidocaine 0.05 mg/mg medicated patch (20 sources) Antiarrhythmic, Amide Local Anesthetic Start: 023 End: apply 1 dose transdermal route once daily, then apply 1 dose transdermal route every twelve hours lidocaine (LIDODERM) 5 % Indications: Chronic pain syndrome , Chronic left hip pain Place 1 patch on the skin daily. Remove & Discard patch within 12 hours 30 patch 2 01/19/2024 Active lumateperone 42 mg oral capsule (4 sources) Start: take 1 capsule by mouth in the morning CAPLYTA 42 mg capsule capsule Take 1 capsule (42 mg total) by mouth in the morning. 12/27/2024 Active naloxone hydrochloride 40 mg/ml nasal spray (7 sources) Opioid Antagonist Start: End: naloxone 4 mg/actuation nasal spray (NARCAN) Use 1 spray in one nostril as needed for overdose. May repeat every 2 to 3 min in alternating nostrils until medical assistance is available 1 Each 1 01/22/2024 Active OLANZapine 5 mg oral tablet (20 sources) Atypical Antipsychotic Start: End: OLANZapine (ZyPREXA) 5 mg tablet 09/19/2024 11/11/2024 Discontinued Start: 08-11-2023 End: 01-22-2024 take 1 tablet by mouth once daily at bedtime OLANZapine (ZYPREXA) 5 mg tablet Indications: Insomnia due to medical condition Take 1 tablet by mouth daily at bedtime. 30 tablet 3 08/11/2023 01/22/2024 Discontinued Comment on above: Take 1 tablet by herminia th daily at bedtime. 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 Max Daily Amount: 20 mg 5 tablet 01/16/2025 01/19/2025 Active Completed/Discontinued Medications Medication Drug Class(es) Dates Sig (Normalized) Sig (Original) acetaminophen 325 mg / HYDROcodone bitartrate 5 mg oral tablet (1 source) Opioid Agonist Start: 10-20-2024 End: 10-20-2024 HYDROcodone-acetam inophen (NORCO) 5-325 mg per tablet Indications: Right rotator cuff tear arthropathy Take 1 tablet by mouth every 8 (eight) hours as needed for pain for up to 3 days. Max Daily Amount: 3 tablets 9 tablet 10/20/2024 10/20/2024 Discontinued (Error) acetaminophen 325 mg / oxyCODONE hydrochloride 5 mg oral tablet (4 sources) Opioid Agonist End: 10-19-2023 take 1 tablet by mouth every four hours as needed for pain oxyCODONE-acetamin ophen (PERCOCET) 5-325 mg per tablet Take 1 tablet by mouth every 4 (four) hours as needed for pain. 10/19/2023 Discontinued (Therapy completed) Comment on above: Take 1 tablet by herminia th every 4 hours as needed. 200 actuat albuterol 0.09 mg/actuat dry powder inhaler (16 sources) beta2-Adrenergic Agonist Start: 07-17-2024 End: 01-10-2025 albuterol sulfate 90 mcg/actuation aerosol powdr breath activated 07/17/2024 01/10/2025 Discontinued (Therapy completed) Start: 07-17-2024 take 2 puff(s) by in halation every four hours albuterol sulfate 90 mcg/actuation aerosol powdr breath activated 2 puff(s), Inhalation, q4hr, # 8 gram, Refill(s): 0, 0, Maintenance, TYRA, Surinamese, Print Requisition 07/17/2024 Active ARIPiprazole 10 mg oral tablet (16 sources) Atypical Antipsychotic Start: 11-02-2023 End: 12-16-2023 take 1 tablet by mouth once daily in the morning ARIPiprazole (ABILIFY) 10 mg tablet take 1 tablet by mouth every morning 90 tablet 2 11/02/2023 12/16/2023 Discontinued (Therapy completed) Start: 05-21-2023 End: 12-09-2023 ARIPiprazole (ABILIFY) 10 mg tablet Take 10 mg by mouth. 05/21/2023 12/09/2023 Discontinued Comment on above: Take 10 mg by mouth. benzonatate 100 mg oral capsule (10 sources) Non-narcotic Antitussive Start: 08-05-2024 End: 01-10-2025 benzonatate (TESSALON PERLES) 100 mg capsule prn 08/05/2024 01/10/2025 Discontinued (Therapy completed) Start: 11-29-2022 End: 10-19-2023 take 1 capsule by mouth three times daily as needed for cough benzonatate (TESSALON PERLES) 100 mg capsule Take 1 capsule (100 mg total) by mouth 3 (three) times a day as needed for cough. 21 capsule 11/29/2022 10/19/2023 Discontinued (Therapy completed) naltrexone hydrochloride 50 mg oral tablet (4 sources) Opioid Antagonist Start: 01-02-2023 End: 10-19-2023 take 1 tablet by mouth in the morning naltrexone (REVIA) 50 mg tablet Indications: Mood disorder ([facility]) Take 1 tablet (50 mg total) by mouth in the morning. 30 tablet 2 01/02/2023 10/19/2023 Discontinued (Therapy completed) Comment on above: Take 50 mg by mouth. 24 hr paliperidone 6 mg extended release oral tablet (17 sources) Atypical Antipsychotic Start: 06-01-2024 End: 01-11-2025 paliperidone (INVEGA) 6 mg 24 hr tablet 06/01/2024 01/11/2025 Discontinued predniSONE 20 mg oral tablet (20 sources) Start: 07-19-2024 End: 10-20-2024 predniSONE (DELTASONE) 20 mg tablet 07/19/2024 10/20/2024 Discontinued (Therapy completed) Start: 12-15-2023 End: 02-01-2024 predniSONE (DELTASONE) 10 mg tablet Take 10 mg by mouth. 12/15/2023 01/22/2024 Discontinued sildenafil 50 mg oral tablet (16 sources) Phosphodiesterase 5 Inhibitor Start: 07-25-2024 End: 01-10-2025 take 1 tablet by mouth once daily as needed sildenafiL (VIAGRA) 50 mg tablet Indications: Drug-induced erectile dysfunction Take 1 tablet (50 mg total) by mouth daily as needed for erectile dysfunction. 10 tablet 2 07/25/2024 01/10/2025 Discontinued (Therapy completed) traZODone hydrochloride 50 mg oral tablet (9 sources) Serotonin Reuptake Inhibitor Start: 09-26-2024 End: 01-10-2025 traZODone (DESYREL) 50 mg tablet prn 09/26/2024 01/10/2025 Discontinued (Therapy completed) Problems Active Problems Problem Classification Problem Date Documented Da te Episodic/Chronic Acute and chronic tonsillitis (20 sources) Hypertrophy of tonsils with hypertrophy of adenoids; Translations: [Hypertrophy of tonsils AND adenoids] Onset: 4 01-27-2024 Chronic Acute cerebrovascular disease (20 sources) Cerebrovascular accident; Translations: [Cerebral infarction, unspecified] Onset: 9 10-19-2023 Chronic Adjustment disorders (2 sources) Adjustment disorder with depressed mood; Translations: [Adjustment disorder with depressed mood] Onset: 2 Chronic Anxiety disorders (20 sources) Mixed anxiety and depressive disorder; Translations: [Anxiety disorder, unspecified] Onset: 7 11-18-2016 Chronic Attention-deficit, conduct, and disruptive behavior disorders (20 sources) Attention deficit hyperactivity disorder, combined type; Translations: [Attention-deficit hyperactivity disorder, combined type] Onset: 7 12-29-2016 Chronic Attention-deficit, conduct, and disruptive behavior disorders (1 source) Attention deficit hyperactivity disorder; Translations: [Attention-deficit hyperactivity disorder, unspecified type] 10-19-2023 Chronic Congestive heart failure; nonhypertensive (20 sources) Chronic systolic heart failure; Translations: [Chronic systolic (congestive) heart failure] Onset: 7 02-13-2017 Chronic Deficiency and other anemia (20 sources) Pancytopenia due to antineoplastic chemotherapy; Translations: [Antineoplastic chemotherapy induced pancytopenia] Onset: 7 02-13-2017 Chronic Esophageal disorders (20 sources) Gastroesophageal reflux disease; Translations: [Gastro-esophageal reflux disease without esophagitis] Onset: 7 02-13-2017 Chronic Hodgkin`s disease (20 sources) Hodgkin's disease (clinical); Translations: [Hodgkin lymphoma, unspecified, unspecified site] Onset: 7 Resolved: 7 02-13-2017 Chronic Hodgkin`s disease (1 source) Hodgkin`s disease Onset: 4 Impulse control disorders, NEC (1 source) Homicidal thoughts; Translations: [Homicidal ideations] 12-09-2023 Episodic Inflammation; infection of eye (except that caused by tuberculosis or sexually transmitteddisease) (5 sources) Multifocal choroiditis; 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, bilateral] Onset: 5 08-12-2024 Chronic Lymphadenitis (4 sources) Inguinal lymphadenopathy; Translations: [Localized enlarged lymph nodes] Onset: 5 01-19-2025 Episodic Mood disorders (20 sources) Depressive disorder; Translations: [Depression (emotion)] Onset: 7 02-13-2017 Chronic Non-Hodgkin`s lymphoma (20 sources) Malignant lymphoma; Translations: [Non-Hodgkin lymphoma, unspecified, unspecified site] Onset: 4 10-19-2023 Chronic Nutritional deficiencies (20 sources) Malnutrition (calorie); Translations: [Moderate protein-calorie malnutrition] Onset: 9 07-22-2018 Chronic Osteoarthritis (2 sources) Osteoarthritis of multiple joints ; Translations: [Secondary multiple arthritis] 08-11-2023 Chronic Other aftercare (2 sources) Under care of palliative care physician; Translations: [Encounter for palliative care] 08-11-2023 Episodic Other aftercare (1 source) Patient encounter status; Translations: [Encounter for palliative care] 12-09-2023 Episodic Other connective tissue disease (1 source) Rotator cuff arthropathy of right shoulder; Translations: [Unspecified rotator cuff tear or rupture of right shoulder, not specified as traumatic] 10-24-2024 Episodic Other connective tissue disease (1 source) Unspecified rotator cuff tear or rupture of right shoulder, not specified as traumatic; Translations: [Unspecified rotator cuff tear or rupture of right shoulder, not specified as traumatic] Onset: Episodic Other gastrointestinal disorders (3 sources) Drug-induced constipation; Translations: [Drug induced constipation] 08-11-2023 Episodic Other infections; including parasitic (2 sources) Toxoplasmosis; Translations: [Toxoplasmosis, unspecified] 08-12-2024 Episodic Other male genital disorders (2 sources) Drug-induced erectile dysfunction; Translations: [Impotence of organic origin] Onset: 5 07-25-2024 Chronic Other nervous system disorders (20 sources) Pain due to neoplastic disease; Translations: [Neoplasm related pain (acute) (chronic)] Onset: 7 11-18-2016 Chronic Other nervous system disorders (1 source) Chronic pain syndrome; Translations: [Chronic pain syndrome] Onset: 4 Chronic Other nervous system disorders (5 sources) Chronic pain syndrome; Translations: [Chronic pain syndrome] 10-19-2023 Chronic Other nervous system disorders (1 source) Other chronic pain; Translations: [Other chronic pain] Onset: 4 Chronic Other nervous system disorders (1 source) Neoplasm related pain (acute) (chronic); Translations: [Neoplasm related pain (acute) (chronic)] Onset: 4 Chronic Other non-traumatic joint disorders (1 source) Other specific arthropathies, not elsewhere classified, right shoulder; Translations: [Other specific arthropathies, not elsewhere classified, right shoulder] Onset: 5 Chronic Other screening for suspected conditions (not mental disorders or infectious disease) (20 sources) Imaging result abnormal; Translations: [Abnormal findings on diagnostic imaging of other specified body structures] Onset: 4 08-17-2023 Chronic Phlebitis; thrombophlebitis and thromboembolism (20 sources) Axillary vein thrombosis; 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] Onset: 9 07-22-2018 Chronic Residual codes; unclassified (20 sources) History of autologous bone marrow transplant; Translations: [Bone marrow transplant status] Onset: 7 02-15-2017 Chronic Residual codes; unclassified (2 sources) Insomnia co-occurrent and due to medical condition; Translations: [Insomnia due to medical condition] 08-11-2023 Chronic Residual codes; unclassified (1 source) Bone marrow transplant status; Translations: [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[facility])] Onset: 7 Chronic Residual codes; unclassified (2 sources) Auditory hallucinations; Translations: [Auditory hallucinations] 08-11-2023 Episodic Retinal detachments; defects; vascular occlusion; and retinopathy (3 sources) Retinal disorder; Translations: [Other specified retinal disorders] Onset: 5 08-12-2024 Chronic Spondylosis; intervertebral disc disorders; other back problems (2 sources) Spondylosis; Translations: [Spondylosis, unspecified] 01-22-2024 Chronic Substance-related disorders (20 sources) Moderate smoker (20 or less per day) ; Translations: [Nicotine dependence, cigarettes, uncomplicated] Onset: 7 11-18-2016 Chronic Substance-related disorders (1 source) 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; Translations: [Other psychoactive substance use, 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, unspecified] 12-09-2023 Episodic Unclassified (1 source) NO SHOW 10-09-2023 Unclassified (2 sources) Autogenerated Problem Onset: 5 01-10-2025 Unclassified (1 source) Eye Exam Onset: 5 Unclassified (1 source) nodular lymphocyte Onset: 4 Unclassified (1 source) right groin lymph node lymphocyte Onset: 5 Unclassified (1 source) New Patient Onset: 5 Past or Other Problems Problem Classification Problem Date Documented Da te Episodic/Chronic Acute and chronic tonsillitis (20 sources) Tonsillitis; Translations: [Acute tonsillitis, unspecified] Onset: 4 08-17-2023 Episodic Acute and unspecified renal failure (16 sources) Acute renal failure syndrome; Translations: [Acute kidney failure, unspecified] Onset: 9 Resolved: 9 07-14-2018 Episodic Bacterial infection; unspecified site (16 sources) Bacteremia; Translations: [Bacteremia] Onset: 9 Resolved: 9 07-22-2018 Episodic Complication of device; implant or graft (20 sources) Embolism due to any device, implant AND/OR graft; Translations: [Embolism due to other internal prosthetic devices, implants and grafts, initial encounter] Onset: 7 Resolved: 7 11-18-2016 Episodic Esophageal disorders (16 sources) Acute esophagitis; Translations: [Acute esophagitis] Onset: 7 Resolved: 7 02-13-2017 Episodic Mood disorders (20 sources) Mood disorders Onset: 4 Resolved: 5 10-19-2023 Nausea and vomiting (16 sources) Chemotherapy-induced nausea and vomiting; Translations: [Nausea with vomiting, unspecified] Onset: 7 Resolved: 7 02-13-2017 Episodic Other aftercare (20 sources) Immunodeficiency secondary to chemotherapy ; Translations: [Immunodeficiency due to chemotherapy] Onset: 7 02-13-2017 Episodic Other aftercare (20 sources) Drug therapy finding; Translations: [MCFP (current) use of opiate analgesic] Onset: 4 08-11-2023 Episodic Other connective tissue disease (2 sources) Spasm; Translations: [Other muscle spasm] 10-19-2023 Episodic Other hematologic conditions (20 sources) H/O: blood disorder; Translations: [Personal history of diseases of the blood and blood-forming organs and certain disorders involving the immune mechanism] Onset: 7 11-18-2016 Episodic Other infections; including parasitic (1 source) Toxoplasmosis, unspecified; Translations: [Toxoplasmosis, unspecified] Onset: 5 Episodic Other non-traumatic joint disorders (5 sources) Hip pain; Translations: [Pain in left hip] 10-19-2023 Episodic Other upper respiratory disease (1 source) Pain in throat Onset: 4 Episodic Phlebitis; thrombophlebitis and thromboembolism (20 sources) Thrombosis of internal jugular vein; Translations: [Acute embolism and thrombosis of unspecified internal jugular vein] Onset: 7 02-15-2017 Episodic Pleurisy; pneumothorax; pulmonary collapse (20 sources) Empyema ; Translations: [Pyothorax without fistula] Onset: 9 Resolved: 9 07-22-2018 Episodic Pneumonia (except that caused by tuberculosis or sexually transmitted disease) (20 sources) Infective pneumonia; Translations: [Pneumonia, unspecified organism] Onset: 9 07-22-2018 Episodic Residual codes; unclassified (20 sources) Cognitive perceptual pattern; Translations: [Unspecified symptoms and signs involving general sensations and perceptions] Onset: 4 10-19-2023 Episodic Residual codes; unclassified (1 source) Pain, unspecified; Translations: [Pain, unspecified] Onset: 4 Episodic Septicemia (except in labor) (16 sources) Sepsis; Translations: [Sepsis, unspecified organism] Onset: 9 Resolved: 9 07-22-2018 Episodic Spondylosis; intervertebral disc disorders; other back problems (20 sources) Chronic back pain ; Translations: [Dorsalgia, unspecified] Onset: 7 02-13-2017 Episodic Unclassified (20 sources) Onset: 4 Resolved: 5 10-19-2023 Unclassified (1 source) Drug-induced erectile dysfunction 07-25-2024 Unclassified (1 source) Preprocedural examination done 01-12-2025 Results Test Name Value Interpretation Reference Range Facility ECG 12 leadon 01-12-[address] [facility] IR BIOPSY LYMPH NODEon 12-22 IR BIOPSY LYMPH NODE IR BIOPSY LYMPH NOD E HISTORY: 44-year-old male with a history of lymphoma and a PET positive lymph node in the right groin. Biopsy was requested. PROCEDURE: The procedure was performed by Dr. Domingo. Benefits and potential risks of procedure were explained to patient and informed written consent was obtained. . The patient was brought to the procedure area, and a time out was performed. All elements of maximal sterile barrier technique were followed, including cap, mask, sterile gown, sterile gloves, large sterile sheet, hand hygiene, and 2% chlorhexidine for percutaneous antisepsis. When ultrasound is used, sterile probe cover and sterile gel were employed. Estimated blood loss was less than 5 mL Following appropriate prep and drape using lidocaine for local anesthesia, a biopsy of the abnormal lymph node in the right groin was performed under ultrasound guidance using a 17-gauge guide needle an 18-gauge Temno needle. Multiple cores were obtained and submitted to pathology for further evaluation. No immediate complications were encountered. The patient tolerated the procedure well and was discharged in stable condition. IMPRESSION: Successful uncomplicated ultrasound-guided right inguinal lymph node biopsy. 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 . Procedure : routine PET/CT using F-18 FDG and imaging from the skull base to the mid thigh. Comparison : January 03 Findings: The rotating raw data image sequence evidence for increased radiotracer activity in the right inguinal lymph nodes There is what looks like physiologic cardiac and urinary and low-level GI tract activity. It is somewhat unusual that the activity in the sigmoid region shows mild multifocal globular uptake slightly greater than the background activity and similar distribution to the previous study. Additional lower GI workup might be considered to check for hypermetabolic polyp Images of the neck show decrease in the hypermetabolic cervical lymphadenopathy. There is some mild residual activity in the right side of the lymph nodes near the submandibular glands and carotid and jugular space. This currently measures 3.5 SUV, previously 3.8 SUV Similar activity on the left side also looks decreased measuring around 2.6 SUV currently compared to 3 SUV previous. There is no increase in the cervical hypermetabolic lymphadenopathy There is some nonspecific unusual activity at the inferior aspect of the left orbit. Correlate for any localized pain or symptoms referable to this area that would prompt additional orbital imaging There is some prominent uptake in the tonsillar regions, including some multilobulated hypermetabolic tissue at the vallecula tongue base region. Given the combination of findings, short-term follow-up contrast CT of the face and neck might be useful particularly if the patient has left orbital pain, throat pain, fever difficulty swallowing There is not significant clavicular activity Activity in the left axillary region and upper arm looks tubular suggesting some vascular and/or the hepatic radiotracer activity No hypermetabolic axillary, pectoral or chest wall lymphadenopathy otherwise Probable physiologic laryngeal activity There are prominent collateral vessels in the chest wall, breast to pectoral region There is asymmetric soft tissue in the right greater than left breast. There is not intense activity on the left. There is mild low-level activity on the right similar to the background mediastinal uptake and without significant interval change. For reference the activity measures around 2 SUV Images of the chest show no suspicious activity. There is a small nodule in the upper portion of the left lower lobe similar to before without intense activity in that region There are slight increased bandlike opacities near the right pleural fissure in the mid chest without intense activity There is trace pericardial effusion without pleural effusion There is only mild vascular calcification visible Images of the abdomen and pelvis show no suspicious liver or splenic activity No splenomegaly No hypermetabolic adrenal mass No hypermetabolic lymphadenopathy in the upper abdomen Again there is what looks like physiologic urinary activity and GI tract activity, somewhat more globular or focal in the sigmoid region. Consider colonoscopy to check for polyps The hypermetabolic lymph nodes in the right inguinal-femoral region now measures 6.4 SUV and 8 SUV Previous activity measured up to about 2.[address] images it looks like there are small but increased lymph nodes around the distal abdominal aorta and cava and right greater than left groin which do not show intense radiotracer activity currently IMPRESSION: New or increased hypermetabolic lymphadenopathy in the right inguinal-femoral region measuring 6.4 and 8 SUV, suggesting progression or recurrence of active lymphoproliferative disorder. Other slightly increased lymph nodes in the right greater than left groin and retroperitoneum do not show intense activity currently The previous hypermetabolic lymphadenopathy in the neck looks slightly decreased with mild residual uptake right greater than left, 3.5 SUV and 3 SUV There is persistent hypermetabolic globular soft tissue along the pharyngeal tonsillar region and tongue base follicular region. Correlate for symptoms that might prompt additional workup There is a small focus of activity in the inferior left orbit presumed physiologic in the absence of symptoms to raise concern for other pathology If warranted/symptomatic , contrast CT or MRI of the face/orbit and neck could prove useful Small asymmetric globular areas of activity in the sigmoi (more content not included)... Normal [facility] CNPZulema 09-14-2024 [facility] Telephone (HEMASA) JOSELYN CARNES ([id number]) 1980 M Date Time Provider Department 09/14/24 [place] During your visit today, we recorded the following information about you: Cassie Bledsoe 09/14/2024 2:24 PM Signed Records faxed to [facility] in [place]. [phone]. Allergies As of Date: 09/14/2024 Noted Allergy Reaction BACTRIM (SULFAMETHOXAZOLE-TRI METH*05/12/2016 4 - Hives Comments: Itching Patient denied any reaction history or allergy to Bactrim or Sulfa during history obtained on 07/14/18; please see Allergy consult note from that date for further details. AMOXICILLIN 07/12/2018 7 - Swelling Comments: Facial swelling; Negative penicillin skin testing on 07/14/18. Please see allergy consult note from that date. recommend test dosing PCN prior to administration. Date Reviewed: 01/22/2024 Reviewed by: Jovita Raygoza MA - Fully Assessed Reason for Visit: Records faxed [Other] Prescriptions as of 09/14/2024 - gabapentin (NEURONTIN) 300 mg capsule Take 1 capsule by mouth three times a day for 30 days. - naloxone 4 mg/actuation nasal spray (NARCAN) Use 1 spray in one nostril as needed for overdose. May repeat every 2 to 3 min in alternating nostrils until medical assistance is available - buprenorphine (BUTRANS) 5 mcg/hour Apply 1 Patch as directed one time a week for 30 days. - ibuprofen (MOTRIN) 800 mg tablet Take 800 mg by mouth three times a day as needed. - cyclobenzaprine (FLEXERIL) 10 mg tablet Take 10 mg by mouth. - senna-docusate (SENNA-S) 8.6-50 mg per tablet Take 1 tablet by mouth once daily. Meds Comments as of 11/05/2017: Patient states Dr. Ceballos in the cancer center at [facility] discontinued all of his medication [place]las A Problem List As Of Date 09/14/2024 Noted Resolved Hodgkin's disease (HCC) [C81.90] 11/18/2016 02/11/2017 Blood clot due to device, implant, or graft [T8*11/18/2016 Cancer associated pain [G89.3] 11/18/2016 Anxiety and depression [F41.9, F32.A] 11/18/2016 Moderate smoker (20 or less per day) [F17.210] 11/18/2016 Hodgkin lymphoma (HCC) [C81.90] 11/18/2016 Personal history of diseases of blood and blood*11/18/2016 Attention deficit hyperactivity disorder (ADHD)*12/29/2016 Depression (emotion) [F32.A] 12/29/2016 Cannabis abuse, daily use [F12.10] 12/29/2016 Cigarette smoker one half pack a day or less [F*12/29/2016 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 Chemotherapy induced nausea and vomiting [R11.2*01/28/2017 02/13/2017 Pancytopenia due to antineoplastic chemotherapy*01/29/20 17 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, *01/28/2017 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]01/28/2017 Central line complication [T82.9XXA] 01/31/2017 02/09/2017 Chronic systolic CHF (congestive heart failure)*02/09/2017 Acute esophagitis [K20.90] 02/09/2017 02/13/2017 Chronic back pain [M54.9, G89.29] 02/09/2017 Mild acid reflux [K21.9] 02/11/2017 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 Severe sepsis (HCC) [A41.9, R65.20] 07/12/2018 07/22/2018 HFrEF (heart failure with reduced ejection frac*07/12/2018 Acute thrombosis of right axillary vein (HCC) [*07/12/2018 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)*07/12/2018 LUIZA (acute kidney injury) (HCC) [N17.9] 07/12/2018 07/14/2018 Pleural effusion on right [J90] 07/12/2018 07/22/2018 Nicotine use disorder, F17.2 [F17.200] 07/13/2018 Bacteremia [R78.81] 07/13/2018 07/22/2018 Malnutrition of moderate degree (HCC) [E44.0] 07/14/2018 Empyema (HCC) [J86.9] 07/14/2018 Opioid contract exists [Z79.891] 09/11/2023 Encounter Status:Closed by CASSIE BLEDSOE on 09/14/24 [facility] Panel Informationon 08-12 [facility] CNPNon 02-16-2024 [facility] Telephone (HEMASA) JOSELYN CARNES ([id number]) 1980 M Date Time Provider Department 02/16/24 [place] During your visit today, we recorded the following information about you: Jovita Raygoza MA 02/16/2024 2:07 PM Signed Patient has an appt on 02/24/24. Would you like labs, if so place orders. Jovita Raygoza MA Allergies As of Date: 02/16/2024 Noted Allergy Reaction BACTRIM (SULFAMETHOXAZOLE-TRI METH*05/12/2016 4 - Hives Comments: Itching Patient denied any reaction history or allergy to Bactrim or Sulfa during history obtained on 07/14/18; please see Allergy consult note from that date for further details. AMOXICILLIN 07/12/2018 7 - Swelling Comments: Facial swelling; Negative penicillin skin testing on 07/14/18. Please see allergy consult note from that date. recommend test dosing PCN prior to administration. 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 - naloxone 4 mg/actuation nasal spray (NARCAN) Use 1 spray in one nostril as needed for overdose. May repeat every 2 to 3 min in alternating nostrils until medical assistance is available - buprenorphine (BUTRANS) 5 mcg/hour Apply 1 Patch as directed one time a week for 30 days. - ibuprofen (MOTRIN) 800 mg tablet Take 800 mg by mouth three times a day as needed. - cyclobenzaprine (FLEXERIL) 10 mg tablet Take 10 mg by mouth. - senna-docusate (SENNA-S) 8.6-50 mg per tablet Take 1 tablet by mouth once daily. Meds Comments as of 11/05/2017: Patient states Dr. Ceballos in the cancer center at [facility] discontinued all of his medication Duglas A Problem List As Of Date 02/16/2024 Noted Resolved Hodgkin's disease (HCC) [C81.90] 11/18/2016 02/11/2017 Blood clot due to device, implant, or graft [T8*11/18/2016 Cancer associated pain [G89.3] 11/18/2016 Anxiety and depression [F41.9, F32.A] 11/18/2016 Moderate smoker (20 or less per day) [F17.210] 11/18/2016 Hodgkin lymphoma (HCC) [C81.90] 11/18/2016 Personal history of diseases of blood and blood*11/18/2016 Attention deficit hyperactivity disorder (ADHD)*12/29/2016 Depression (emotion) [F32.A] 12/29/2016 Cannabis abuse, daily use [F12.10] 12/29/2016 Cigarette smoker one half pack a day or less [F*12/29/2016 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 Chemotherapy induced nausea and vomiting [R11.2*01/28/2017 02/13/2017 Pancytopenia due to antineoplastic chemotherapy*01/29/20 17 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, *01/28/2017 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]01/28/2017 Central line complication [T82.9XXA] 01/31/2017 02/09/2017 Chronic systolic CHF (congestive heart failure)*02/09/2017 Acute esophagitis [K20.90] 02/09/2017 02/13/2017 Chronic back pain [M54.9, G89.29] 02/09/2017 Mild acid reflux [K21.9] 02/11/2017 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 Severe sepsis (HCC) [A41.9, R65.20] 07/12/2018 07/22/2018 HFrEF (heart failure with reduced ejection frac*07/12/2018 Acute thrombosis of right axillary vein (HCC) [*07/12/2018 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 Flow cytometry specialist re view Angel (Unsp spec) [Interp]on 02-02-2024 FLOW CYTOMETRY TISSUE/FLUID, NON CSF/NON BAL SEE SEPARATE REPORT, REVIEWED BY PATHOLOGIST Normal [facility] Comment on above: Performed By: #### [id number] #### [facility] ([id number]) [address] [place] [address], [address] [place] [address] Surgical Pathologyon 024 Surgical Pathology Normal [facility] Comment on above: Result Comment: [facility] [address] [place] [address] Surgical Pathology Consultation Patient Name:JOSELYN CARNES:1980 (Age: 43)Gender:MTaken:4Reported:4Physician(s):Nitin Burr MD ([phone])Copy To: Rec. #:[id number]: #[id number] Final Pathologic Diagnosis 1. Right tonsil, tonsillectomy: Chronic tonsillitis with benign reactive lymphoid hyperplasia. No malignancy identified. 2. Left tonsil, tonsillectomy: Chronic tonsillitis with benign reactive lymphoid hyperplasia. No malignancy identified. 3. Adenoids, biopsy: Benign adenoid tissue with reactive lymphoid hyperplasia. No malignancy identified. Report Electronically Signed Out nxk/02/04/2024Keo Mata MD Flow Cytometry-Surg/BM/NG Date Reported: 02/06/2024 Immunophenotypic analysis of the lymphoid cells demonstrates a mixed population of phenotypically unremarkable T-cells and polyclonal B-cells. No monoclonal lymphoid population is detected. Immunophenotyping antibodies tested: CD3, CD5, CD7, CD10, CD19, CD20, CD23, CD45, [place], and Lambda. Immunophenotyping Comment: Immunophenotyping has been used in this diagnostic evaluation. This test was developed and its performance characteristics determined by the [facility] Department. It has not been cleared or approved by the U.S. Food and Drug Administration. The FDA has determined that such clearance or approval is not necessary. This test is used for clinical purposes. It should not be regarded as investigational or for research. This laboratory is certified under the Clinical Laboratory Improvement Amendments of 1988 ( CLIA ) as qualified to perform high-complexity clinical testing. Electronically Signed Out Anshu Dickerson MD Interpretation performed at [facility], [address] [place] [address], License number: [id number]. 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 Gross Description 1. Received fresh labeled CARNES, right tonsil is a pink-reis intact tonsil, 1.8 x 1.0 x 0.6 cm. The lymph node is sectioned to reveal pink-reis, smooth cut surfaces. A medical center representative portion is submitted in RPMI media for flow cytometric studies, two H&E touch preps and two Giemsa touch preps are prepared. The remainder of the tissue is submitted in cassettes A-B (cassette B is submitted following B+ fixation). (2,ns,[id number], m1) GK 2. Received fresh labeled DEYVI, left tonsil is a pink-reis portion of tonsillar tissue, 1.2 x 0.5 x 0.2 cm. The lymph node is sectioned to reveal pink-reis, smooth cut surfaces. A medical center representative portion is submitted in RPMI media for flow cytometric studies, two H&E touch preps and two Giemsa touch preps are prepared. The remainder of the tissue is submitted in cassettes A-B (cassette B is submitted following B+ fixation). (2,ns,[id number], m1) GK 3. Received fresh labeled DEYVI, adenoid is a reis soft tissue bit, 0.4 cm. A medical center representative portion is submitted in RPMI media for flow cytometric studies, two H&E touch preps and two Giemsa touch preps are prepared. The remainder of the tissue is submitted in cassette A. (1,ns,[id number], m1) GK Please note that the three samples are combined into a single RPMI media for flow cytometric studies. /02/02/2024[facility]AK Specimen(s) Received 1: Right tonsil 2: Left tonsil 3: Adenoids Fee Codes(s): 1; 01335, 54511 2; 98491, 70158 3; 71965, 06676, 30660 ECG 12 [facility] 02-01-2024 [facility] 01-25-2024 [facility] Telephone (MPPV) JOSELYN CARNES ([id number]) 1980 Date Time Provider Department 01/25/24 MARIALUISA PORTILLO MPPMHV During your visit today, we recorded the following information about you: Marialuisa Portillo RN 01/28/2024 2:34 PM Addendum Prior Authorization Documentation Approved Prior authorization requested for: MEDICATION Butran 5 mcg TD patch Submitted via phone call to [facility] PA department. Spoke Annemarie in PA department. 01/27-Spoke with Bonnie at [facility]. Medication approved and she will call the pharmacy to update them Insurance Company Name: [employer]. Pharmacy Name: [facility] and Authorization approval [place] # [id number] Dates of Approval: from 01/25/2024 to 04/23/2025 Patient Assistance Needed: No Time Spent 25 minutes Marialuisa Portillo RN January 25, 2024 Allergies As of Date: 01/25/2024 Noted Allergy Reaction BACTRIM (SULFAMETHOXAZOLE-TRI METH*05/12/2016 4 - Hives Comments: Itching Patient denied any reaction history or allergy to Bactrim or Sulfa during history obtained on 07/14/18; please see Allergy consult note from that date for further details. AMOXICILLIN 07/12/2018 7 - Swelling Comments: Facial swelling; Negative penicillin skin testing on 07/14/18. Please see allergy consult note from that date. recommend test dosing PCN prior to administration. Date Reviewed: 01/22/2024 Reviewed by: Jovita Raygoza MA - Fully Assessed Reason for Visit: Insurance Authorization [1693] Cmt: Butran Patches Prescriptions as of 01/28/2024 - gabapentin (NEURONTIN) 300 mg capsule Take 1 capsule by mouth three times a day for 30 days. - naloxone 4 mg/actuation nasal spray (NARCAN) Use 1 spray in one nostril as needed for overdose. May repeat every 2 to 3 min in alternating nostrils until medical assistance is available - buprenorphine (BUTRANS) 5 mcg/hour Apply 1 Patch as directed one time a week for 30 days. - ibuprofen (MOTRIN) 800 mg tablet Take 800 mg by mouth three times a day as needed. - cyclobenzaprine (FLEXERIL) 10 mg tablet Take 10 mg by mouth. - senna-docusate (SENNA-S) 8.6-50 mg per tablet Take 1 tablet by mouth once daily. Meds Comments as of 11/05/2017: Patient states Dr. Ceballos in the cancer center at [facility] discontinued all of his medication Duglas A Problem List As Of Date 01/25/2024 Noted Resolved Hodgkin's disease (HCC) [C81.90] 11/18/2016 02/11/2017 Blood clot due to device, implant, or graft [T8*11/18/2016 Cancer associated pain [G89.3] 11/18/2016 Anxiety and depression [F41.9, F32.A] 11/18/2016 Moderate smoker (20 or less per day) [F17.210] 11/18/2016 Hodgkin lymphoma (HCC) [C81.90] 11/18/2016 Personal history of diseases of blood and blood*11/18/2016 Attention deficit hyperactivity disorder (ADHD)*12/29/2016 Depression (emotion) [F32.A] 12/29/2016 Cannabis abuse, daily use [F12.10] 12/29/2016 Cigarette smoker one half pack a day or less [F*12/29/2016 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 Chemotherapy induced nausea and vomiting [R11.2*01/28/2017 02/13/2017 Pancytopenia due to antineoplastic chemotherapy*01/29/20 17 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, *01/28/2017 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]01/28/2017 Central line complication [T82.9XXA] 01/31/2017 02/09/2017 Chronic systolic CHF (congestive heart failure)*02/09/2017 Acute esophagitis [K20.90] 02/09/2017 02/13/2017 Chronic back pain [M54.9, G89.29] 02/09/2017 Mild acid reflux [K21.9] 02/11/2017 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 Severe sepsis (HCC) [A41.9, R65.20] 07/12/2018 07/22/2018 HFrEF (heart failure with reduced ejection frac*07/12/2018 Acute thrombosis of right axillary vein (HCC) [*07/12/2018 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)*07/12/2018 LUIZA (acute kidney injury) (HCC) [N17.9] 07/12/2018 07/14/2018 Pleural effusion on right [J90] 07/12/2018 07/22/2018 Nicotine use disorder, F17.2 [F17.200] 07/13/2018 Bacteremia [R78.81] 07/13/2018 07/22/2018 Malnutrition of moderate degree (HCC) [E44.0] 07/14/2018 Empyema (HCC) [J86.9] 07/14/2018 Opioid contract exists [Z79.891] 09/11/2023 Encounter Status:Closed by MARIALUISA PORTILLO on 01/25/24 [facility] CNOVon 01-22-2024 CNOV Office Visit ([facility] ) JOSELYN CARNES ([id number]) 1980 M Date Time Provider Department 01/22/24 3:00 PM [facility] During your visit today, we recorded the following information about you: Temperature Pulse Respiration Blood pressure 97.1 degrees 99/minute 16/minute 131/91 Weight Height 102.2 kg 1.854 m Simran Nelson APRN.WAIST FITTER 01/25/2024 1:01 PM Addendum PALLIATIVE MEDICINE PROGRESS NOTE SERVICE DATE: 01/22/2024 CHIEF COMPLAINT: Neoplasm Pain PERTINENT MEDICAL HISTORY: Joselyn Carnes is a 43 year old male with history of Nodular lymphocyte predominant Hodgkin's Lymphoma diagnosed in June [address] left inguinal [address]. After 6 x ABVD with CR and underwent consolidative RT to left inguinal nodes as well as T-spine. Unfortunately pruritus and lymphadenopathy heralded relapse in May 2016 and he underwent ICE x 3 followed by ASCT February 04, 2017. He was lost to follow up until 2019 when he had several imaging studies for dyspnea and spinal stenosis. He was again lost to follow up until when had recurring neck and groin pain in october 2022 and PET scan showed recurrence. SUBJECTIVE Joselyn was lost to follow up, he was last seen 08/08, he was in a residential treatment program, has been sober for four months Chronic left hip pain, being treated by PCP, on gabapentin, motrin, flexeril. Complains today of low back pain and pain in the neck area awaiting follow-up with ENT He never started a prescription of transdermal Butrans back in July because he did not understand why it was giving him Suboxone and he was still using crack and IV drugs and did not want to throw himself into withdrawal PET scan 01/12/24 shows: HEAD/NECK: * Persistent intense uptake at the adenoids and bilateral tonsils. * Persistent mildly FDG avid bilateral cervical nodes. CHEST: * No FDG avid neoplastic process. * Intense uptake within the distal esophagus is likely physiologic/inflammat ory, for example related to underlying reflux esophagitis. Clinical correlation recommended. If indicated, further evaluation can be obtained with endoscopy. ABDOMEN/PELVIS: * Right inguinal nodes have increased slightly in size and FDG avidity, still with mild uptake. He has been referred to ENT No significant emotional, spiritual, or sleep disturbance .GI or distress no appetite and weight are stable Modified ESAS ([place] Symptom Assessment Scale) Information Provided By: Patient Pain: Moderate Nausea: None Loss of Appetite: None Constipation: None Shortness of Breath: None Drowsiness: None Tiredness: None Depression: None Anxiety: None Objective ECOG PERFORMANCE STATUS: 0- Fully active, able to carry on all pre-disease performance w/o restriction. PHYSICAL EXAMINATION: Vital signs: There were no vitals taken for this visit. Last 1 Encounter Temp Readings: Date: Temp: Temp Src: 12/18/2023 36.6 ?C (97.8 ?F) Temporal Last 1 Encounter Resp Readings: Date: Resp: 12/18/2023 16 Last 1 Encounter Pulse Readings: Date: Pulse: 12/18/2023 67 Last 1 Encounter BP Readings: Date: BP: 12/18/2023 125/79 Physical Exam DATA: Diagnostic tests reviewed for today's visit: Most recent labs and imaging results. Estimated Creatinine Clearance: 93.7 mL/min (A) (based on SCr of 1.23 mg/dL (H)). Opioid Management: Yes Indication for Opioid Prescribing: Cancer related pain ORT-OUD Score: 4 A score of 3 or higher may indicate a higher risk for future development of aberrant drug related behavior or opioid use disorder. Informed consent for chronic opiate therapy obtained and written pain agreement: Signed today Naloxone offered?: Yes, accepted Course of treatment, patient's response and adherence to the prescribed treatment plan reviewed, including non-pharmacological and non-opioid treatment modalities? Yes Have any complications or exacerbations of the underlying condition causing the pain been reviewed? Yes How much does pain impede patient?s ability to engage in work or other purposeful activities, interfere with your activities of daily living, physical activity, or quality of your family life and social activities? Significantly Aberrancies in pain panel? No Any aberrant drug related behaviors since last visit? No Rationale for continuing opioid treatment: Improved comfort and function based on an ongoing functional assessment Benefits of Opioid Therapy outweigh risks: Yes Prescribed Morphine Equivalent Daily Dose (MEDD): Yes > 50 MEDD Yes, I am certified in Hospice and Palliative Care, Hematology, Medical Oncology or Pain Medicine OARRS Checked: PDMP website checked and validated. All prescriptions have been APPROPRIATELY filled. No suspicious activity was identified. 01/22/2024 by Simran Nelson NP, SPRIGGER.WAIST FITTER Assessment AND Plan (Z51.5) (more content not included)... Normal [facility] CNPNon 01-22-2024 CNPN Telephone (SDOP[facility]) JOSELYN CARNES ([id number]) 1980 M Date Time Provider Department 01/22/24 TEETEE COOK SDOP[facility] During your visit today, we recorded the following information about you: Teetee Cook [facility] 01/26/2024 9:49 AM Signed Ambulatory Pharmacy Prior Authorization Note Provider Intervention Required?: No- Pharmacy completed on your behalf. Rx Plan: [facility]: Buprenorphine patches Cover My Meds Ly: [id number] Determination: Denied PA Denied because: Step therapy requirement Prior Authorization/Case #: [id number] Prior Authorization Expiration: na Time to PA Submission in CMM: 15 min Time to PA Determination in CMM: 1 day Additional Information: must try Tramadol ER For questions relating to this submission, please contact [facility] at [phone] Martina Stephenson [facility] 01/25/2024 11:32 AM Signed Insurance DENIED butrans patches - he must have a failure, contraindication or intolerance to Tramadol ER. Allie - please advise if you will be completing an appeal. Thank you, Martina Stephenson, [facility] Simran Nelson, SPRIGGER.WAIST FITTER 01/25/2024 12:59 PM Signed Yes we will be doing an appeal, thanks Allergies As of Date: 01/22/2024 Noted Allergy Reaction BACTRIM (SULFAMETHOXAZOLE-TRI METH*05/12/2016 4 - Hives Comments: Itching Patient denied any reaction history or allergy to Bactrim or Sulfa during history obtained on 07/14/18; please see Allergy consult note from that date for further details. AMOXICILLIN 07/12/2018 7 - Swelling Comments: Facial swelling; Negative penicillin skin testing on 07/14/18. Please see allergy consult note from that date. recommend test dosing PCN prior to administration. Date Reviewed: 01/22/2024 Reviewed by: Jovita Raygoza MA - Fully Assessed Reason for Visit: Medication Authorization [1699] Cmt: Buprenorphine patches Prescriptions as of 01/26/2024 - gabapentin (NEURONTIN) 300 mg capsule Take 1 capsule by mouth three times a day for 30 days. - naloxone 4 mg/actuation nasal spray (NARCAN) Use 1 spray in one nostril as needed for overdose. May repeat every 2 to 3 min in alternating nostrils until medical assistance is available - buprenorphine (BUTRANS) 5 mcg/hour Apply 1 Patch as directed one time a week for 30 days. - ibuprofen (MOTRIN) 800 mg tablet Take 800 mg by mouth three times a day as needed. - cyclobenzaprine (FLEXERIL) 10 mg tablet Take 10 mg by mouth. - senna-docusate (SENNA-S) 8.6-50 mg per tablet Take 1 tablet by mouth once daily. Meds Comments as of 11/05/2017: Patient states Dr. Ceballos in the cancer center at [facility] discontinued all of his medication NubiaJohnson A Problem List As Of Date 01/22/2024 Noted Resolved Hodgkin's disease (HCC) [C81.90] 11/18/2016 02/11/2017 Blood clot due to device, implant, or graft [T8*11/18/2016 Cancer associated pain [G89.3] 11/18/2016 Anxiety and depression [F41.9, F32.A] 11/18/2016 Moderate smoker (20 or less per day) [F17.210] 11/18/2016 Hodgkin lymphoma (HCC) [C81.90] 11/18/2016 Personal history of diseases of blood and blood*11/18/2016 Attention deficit hyperactivity disorder (ADHD)*12/29/2016 Depression (emotion) [F32.A] 12/29/2016 Cannabis abuse, daily use [F12.10] 12/29/2016 Cigarette smoker one half pack a day or less [F*12/29/2016 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 Chemotherapy induced nausea and vomiting [R11.2*01/28/2017 02/13/2017 Pancytopenia due to antineoplastic chemotherapy*01/29/20 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, *01/28/2017 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]01/28/2017 Central line complication [T82.9XXA] 01/31/2017 02/09/2017 Chronic systolic CHF (congestive heart failure)*02/09/2017 Acute esophagitis [K20.90] 02/09/2017 02/13/2017 Chronic back pain [M54.9, G89.29] 02/09/2017 Mild acid reflux [K21.9] 02/11/2017 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 Severe sepsis (HCC) [A41.9, R65.20] 07/12/2018 07/22/2018 HFrEF (heart failure with reduced ejection frac*07/12/2018 Acute thrombosis of right axillary vein (HCC) [*07/12/2018 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 PAIN PANEL, UR QUANTon 01-21 9-Xxuodyukey-8,5-Dimethy l-3,3-Diphenylpyrrolidin e (EDDP) Confirm (U) [Mass/Vol] <6 Normal <[address] [facility] Comment on above: Order Comment: Speci men Type: URINE SPECIMENOrdering Facility: [facility] Address: [address] [place] [address] Result Comment: EDDP is a metabolite of methadone. Performed By: #### L [id number] ####[facility] [id number] [place] [address] [place] 6-Monoacetylmorphine (6-KEYLA) (U) [Mass/Vol] <5 Normal <[address] [facility] Comment on above: Order Comment: Speci men Type: URINE SPECIMENOrdering Facility: [facility] Address: [address] [place] [address] Result Comment: 6-MA M (6-monoacetylmorphine, also known as 6-acetylmorphine) is a unique metabolite of heroin. Presence of 6-KEYLA indicates use of heroin. 6-KEYLA is further metabolized to morphine and absence of 6-KEYLA does not rule out the use of heroin. Performed By: #### L [id number] ####[facility] [id number] [place] [address] [place] Amphetamine Confirm (U) [Mass/Vol] <5 Normal <[address] [facility] Comment on above: Order Comment: Speci men Type: URINE SPECIMENOrdering Facility: [facility] Address: [address] [place] [address] Performed By: #### L [id number] ####[facility] [id number] [place] [address] [place] Benzoylecgonine Confirm (U) [Mass/Vol] <24 Normal <[address] [facility] Comment on above: Order Comment: Speci men Type: URINE SPECIMENOrdering Facility: [facility] Address: [address] [place] [address] Result Comment: Stas oylecgonine is a metabolite of cocaine. Performed By: #### L [id number] ####[facility] [id number] [place] [address] [place] Buprenorphine (U) [Mass/Vol] <20 Normal <[address] [facility] Comment on above: Order Comment: Speci men Type: URINE SPECIMENOrdering Facility: [facility] Address: [address] [place] [address] Performed By: #### L [id number] ####[facility] [id number] [place] [address] [place] Cannabinoids Confirm (U) [Mass/Vol] <16 Normal <[address] [facility] Comment on above: Order Comment: Speci men Type: URINE SPECIMENOrdering Facility: [facility] Address: [address] [place] [address] Result Comment: Tetr ahydrocannabinol carboxylic acid (THCA) is a metabolite of umxit-8-qmibiowzsflgbbyoqkue which is the main active component of marijuana. Performed By: #### L [id number] ####[facility] [id number] [place] [address] [place] Codeine Confirm (U) [Mass/Vol] <11 Normal <[address] [facility] Comment on above: Order Comment: Speci men Type: URINE SPECIMENOrdering Facility: [facility] Address: [address] [place] [address] Performed By: #### L [id number] ####[facility] [id number] [place] [address] [place] Dihydrocodeine Confirm (U) [Mass/Vol] <5 Normal <[address] [facility] Comment on above: Order Comment: Speci men Type: URINE SPECIMENOrdering Facility: [facility] Address: [address] [place] [address] Performed By: #### L [id number] ####[facility] LABIA [id number] [place] [address] [place] fentaNYL Confirm (U) [Mass/Vol] <6 Normal <[address] [facility] Comment on above: Order Comment: Speci men Type: URINE SPECIMENOrdering Facility: [facility] Address: [address] [place] [address] Performed By: #### L [id number] ####[facility] LAB[facility] [id number] [place] [address] [place] HYDROcodone Confirm (U) [Mass/Vol] <8 Normal <[address] [facility] Comment on above: Order Comment: Speci men Type: URINE SPECIMENOrdering Facility: [facility] Address: [address] [place] [address] Result Comment: Hydr ocodone is a metabolite of dihydrocodeine. Performed By: #### L [id number] ####[facility] LAB[facility] [id number] [place] [address] [place] HYDROmorphone Confirm (U) [Mass/Vol] <5 Normal <[address] [facility] Comment on above: Order Comment: Speci men Type: URINE SPECIMENOrdering Facility: [facility] Address: [address] [place] [address] Result Comment: Hydr omorphone is a metabolite of hydrocodone. Performed By: #### L [id number] ####[facility] LABIA [id number] [place] [address] [place] Methadone Confirm (U) [Mass/Vol] <16 Normal <[address] [facility] Comment on above: Order Comment: Speci men Type: URINE SPECIMENOrdering Facility: [facility] Address: [address] [place] [address] Performed By: #### L [id number] ####[facility] [id number] [place] [address] [place] Methamphetamine Confirm (U) [Mass/Vol] <8 Normal <[address] [facility] Comment on above: Order Comment: Speci men Type: URINE SPECIMENOrdering Facility: [facility] Address: [address] [place] [address] Performed By: #### L [id number] ####[facility] [id number] [address] [place] Morphine Confirm (U) [Mass/Vol] <10 Normal <[address] [facility] Comment on above: Order Comment: Speci men Type: URINE SPECIMENOrdering Facility: [facility] Address: [address] [place] [address] Result Comment: Morp suzette is a metabolite of codeine and heroin. Performed By: #### L [id number] ####[facility] [id number] [address] [place] Norbuprenorphine (U) [Mass/Vol] <20 Normal <[address] [facility] Comment on above: Order Comment: Speci men Type: URINE SPECIMENOrdering Facility: [facility] Address: [address] [place] [address] Result Comment: Norb uprenorphine is the primary active metabolite of buprenorphine. Performed By: #### L [id number] ####[facility] [id number] [place] [address] [place] Norfentanyl Confirm (U) [Mass/Vol] <6 Normal <[address] [facility] Comment on above: Order Comment: Speci men Type: URINE SPECIMENOrdering Facility: [facility] Address: [address] [place] [address] Result Comment: Norf entanyl is a metabolite of fentanyl. Performed By: #### L [id number] ####[facility] LABCL[facility] [id number] [place] [address] [place] Nortramadol (U) [Mass/Vol] <20 Normal <[address] [facility] Comment on above: Order Comment: Speci men Type: URINE SPECIMENOrdering Facility: [facility] Address: [address] [place] [address] Result Comment: Desm ethyltramadol is a metabolite of tramadol. Performed By: #### L [id number] ####[facility] LABIA [id number] [place] [address] [place] NOTE,UR PAIN LOMAX Normal [facility] Comment on above: Order Comment: Speci men Type: URINE SPECIMENOrdering Facility: [facility] Address: [address] [place] [address] Result Comment: This test is for medical use only. This test was developed and its performance characteristics determined by [facility] [place] [facility] It has not been cleared or approved by the FDA. -[facility] is regulated under CLIA as qualified to perform high-complexity testing. This test is used for clinical purposes. It should not be regarded as investigational or for research. Performed By: #### L [id number] ####[facility] LABIA [id number] [place] [address] [place] oxyCODONE Confirm (U) [Mass/Vol] <10 Normal <[address] [facility] Comment on above: Order Comment: Speci men Type: URINE SPECIMENOrdering Facility: [facility] Address: [address] [place] [address] Performed By: #### L [id number] ####[facility] LABCLIA [id number] [place] [address] [place] oxyMORphone Confirm (U) [Mass/Vol] <5 Normal <[address] [facility] Comment on above: Order Comment: Speci men Type: URINE SPECIMENOrdering Facility: [facility] Address: [address] [place] [address] Result Comment: Oxym orphone is a metabolite of oxycodone. Performed By: #### L [id number] ####[facility]CL[facility] [id number] [place] [address] [place] traMADol Confirm (U) [Mass/Vol] <25 Normal <[address] [facility] Comment on above: Order Comment: Speci men Type: URINE SPECIMENOrdering Facility: [facility] Address: [address] [place] [address] Performed By: #### L [id number] ####[facility] LABIA [id number] [place] [address] [place] SPECIMEN VALIDITY, URINEon 0 01-22-2024 CHROMATE,URINE <10 Normal <[address] [facility] Comment on above: Order Comment: Speci men Type: URINE SPECIMENOrdering Facility: [facility] Address: [address] [place] [address] Performed By: #### L [id number] ####[facility] LABIA [id number] [place] [address] [place] CREATININE,URINE 54.0 mg/dL Normal 20.0-300.0 [facility] Comment on above: Order Comment: Speci men Type: URINE SPECIMENOrdering Facility: [facility] Address: [address] [place] [address] Performed By: #### L [id number] ####[facility] LABCLIA [id number] [place] [address] [place] NITRITES,URINE <50 Normal <[address] [facility] Comment on above: Order Comment: Speci men Type: URINE SPECIMENOrdering Facility: [facility] Address: [address] [place] [address] Performed By: #### L [id number] ####[facility] LABCLIA [id number] [place] [address] [place] OXIDANTS,URINE <38 Normal <[address] [facility] Comment on above: Order Comment: Speci men Type: URINE SPECIMENOrdering Facility: [facility] Address: [address] [place] [address] Performed By: #### L [id number] ####[facility] LABCLIA [id number] [place] [address] [place] pH (U) 5.8 [pH] Normal 4.5-8.[address] [facility] Comment on above: Order Comment: Speci men Type: URINE SPECIMENOrdering Facility: [facility] Address: [address] [place] [address] Performed By: #### L [id number] ####[facility] LABCLIA [id number] [place] [address] [place] SPEC GRAVITY,UR 1.009 Normal 1.003-1.[address] [facility] Comment on above: Order Comment: Speci men Type: URINE SPECIMENOrdering Facility: [facility] Address: [address] [place] [address] Performed By: #### L [id number] ####[facility]CL[facility] [id number] [place] [address] [place] SPECIMEN VALIDITY QUALITY Specimen quality results within acceptable limits Normal [facility] Comment on above: Order Comment: Speci men Type: URINE SPECIMENOrdering Facility: [facility] Address: [address] [place] [address] Performed By: #### L [id number] ####[facility]CL[facility] [id number] [place] [address] [place] TOXICOLOGY SCREEN, ROUTINE U RINEon 01-22-2024 Amphetamines Confirm (U) [Mass/Vol] Negative Normal Negative [facility] Comment on above: Order Comment: Speci men Type: URINE SPECIMENOrdering Facility: [facility] Address: [address] [place] [address] Result Comment: Cuto ff threshold at 1000 ng/mL. Performed By: #### U TOX2 ####[facility]CL[facility] [id number] [place] [address] [place] BARBITURATES, URINE Negative Normal Negative [facility] Comment on above: Order Comment: Speci men Type: URINE SPECIMENOrdering Facility: [facility] Address: [address] [place] [address] Result Comment: Cuto ff threshold at 200 ng/mL. Performed By: #### U TOX2 ####[facility] LABCLIA [id number] [place] [address] [place] BENZODIAZEPINES, UR Negative Normal Negative [facility] Comment on above: Order Comment: Speci men Type: URINE SPECIMENOrdering Facility: [facility] Address: [address] [place] [address] Result Comment: Cuto ff threshold at 200 ng/mL. Performed By: #### U TOX2 ####[facility] LABIA [id number] [place] [address] [place] Cannabinoids Screen Ql (U) Negative Normal Negative [facility] Comment on above: Order Comment: Speci men Type: URINE SPECIMENOrdering Facility: [facility] Address: [address] [place] [address] Result Comment: Cuto ff threshold at 50 ng/mL. Performed By: #### U TOX2 ####[facility] LABCLIA [id number] [place] [address] [place] Cocaine Ql (U) Negative Normal Negative [facility] Comment on above: Order Comment: Speci men Type: URINE SPECIMENOrdering Facility: [facility] Address: [address] [place] [address] Result Comment: Cuto ff threshold at 300 ng/mL. Performed By: #### U TOX2 ####[facility]CL[facility] [id number] [place] [address] [place] Ethanol (U) [Mass/Vol] <11 Normal <11 [facility] Comment on above: Order Comment: Speci men Type: URINE SPECIMENOrdering Facility: [facility] Address: [address] [place] [address] Performed By: #### U TOX2 ####[facility] LABIA [id number] [place] [address] [place] Opiates Screen Ql (U) Negative Normal Negative [facility] Comment on above: Order Comment: Speci men Type: URINE SPECIMENOrdering Facility: [facility] [place] Address: [address] [place] [address] Result Comment: Cuto ff threshold at 300 ng/mL. Performed By: #### U TOX2 ####[facility] LABIA [id number] [place] [address] [place] oxyCODONE cutoff Screen (U) [Mass/Vol] Negative Normal Negative [facility] Comment on above: Order Comment: Speci men Type: URINE SPECIMENOrdering Facility: [facility] Address: [address] [place] [address] Result Comment: Cuto ff threshold at 100 ng/mL. Performed By: #### U TOX2 ####[facility] LABIA [id number] [place] [address] [place] Phencyclidine Ql (U) Negative Normal Negative [facility] Comment on above: Order Comment: Speci men Type: URINE SPECIMENOrdering Facility: [facility] Address: [address] [place] [address] Result Comment: Cuto ff threshold at 25 ng/mL. Performed By: #### U TOX2 ####[facility] LABCLIA [id number] [facility] [id number] [place] [id number] [place] PT Skull base to mid-thighOr dered By: Clarisse Nixon on 01-18-2024 S B E Radiology Study observation (narrative) [facility] PET+CT Guidance for localiza tion of tumor of Skull base to mid-thigh-- W 18F-FDG Iris 01-12-2024 IMPRESSION: HEAD/NECK: * Persistent intense uptake at the adenoids and bilateral tonsils. * Persistent mildly FDG avid bilateral cervical nodes. CHEST: * No FDG avid neoplastic process. * Intense uptake within the distal esophagus is likely physiologic/inflammat ory, for example related to underlying reflux esophagitis. Clinical correlation recommended. If indicated, further evaluation can be obtained with endoscopy. ABDOMEN/PELVIS: * Right inguinal nodes have increased slightly in size and FDG avidity, still with mild uptake. MUSCULOSKELETAL: * No FDG avid neoplastic process. Deauville Score: 4 * Score 1: No uptake above the background * Score 2: Uptake equal to or below mediastinum * Score 3: Uptake above mediastinum but equal to or below liver * Score 4: Uptake slightly to moderately above liver * Score 5: Uptake markedly above liver or a new site of disease * Score X: New area(s) of uptake unlikely to be related to lymphoma Transcribe Date/Time: Jan 12 2024 11:22A Dictated by: ALYX ELLIOTT MD This examination was interpreted and the report reviewed and electronically signed by: ALYX ELLIOTT MD on Jan 12 2024 11:46AM EST Thank you for allowing us to participate in the care of your patient. Should there be any questions regarding this interpretation, please call [phone]. If you are unable to reach us at the number above, please feel free to contact [facility] eRadiology at [phone]. 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 INDICATION: Subsequent treatment strategy. TECHNIQUE: Radiopharmaceutical was administered IV followed about 60 minutes later by PET imaging from eyes to proximal thighs. Free breathing, low dose CT of the same body region was acquired without IV contrast for attenuation correction and anatomic localization. * CT Dose-Length Product (DLP): 284 mGy*cm * CT Dose Reduction Employed: Yes * Blood glucose (mg/dL): 88 * Radiopharmaceutical Activity: 14.4 mCi * Radiopharmaceutical: [id number] e (FDG) * All reported standardized uptake values represent maximum SUV (SUVmax) per body weight, unless otherwise specified. COMPARISON: FDG PET/CT 08/12/2023 CORRELATION: No relevant imaging available RESULT: REFERENCES: SUV reference values: * Blood pool (descending aorta) activity: SUVmax 2.2 * Background liver activity: SUVmax 2.7 Benefits Director (topogram) images: No additional findings. Notes and limitations: * Standardized uptake values indicate the highest activity concentration (SUVmax) at a given location but can be variable and are not absolute. * Physiologic/non-neopl astic uptake is common in the brain, extraocular muscles, oral cavity, tonsils, salivary glands, vocal cords, myocardium, liver, GI tract, urinary tract, and bone marrow among others. Certain regions and organ systems can have more intense uptake, which could confound or obscure some pathology. * Unenhanced imaging is limited for the evaluation of some pathology and the acquired CT was not designed to produce or replace diagnostic CT scan quality. * PET-CT is often not sensitive for pulmonary nodules less than 8 mm. HEAD AND NECK: Imaged Head: No abnormal uptake. Mild right maxillary sinus mucoperiosteal thickening. Neck & Lymph Nodes: There is persistent intense uptake at the adenoids and bilateral tonsils. For example, uptake at the adenoids measures SUV max 6.9 (previous SUV max 7.5) and uptake at the palatine tonsils measures SUV max 13.9 on the left (previous SUV max 13.2 on the right). Persistent FDG avid bilateral cervical nodes. For example, a 1.5 cm right level 2a node measures SUV max 3.9 (4:40), previously 1.5 cm with SUV max 4.1. A 1 cm left level 2b node measures SUV max 3.4 (4:35), previously 1 cm with SUV max 3.8. Thyroid: No abnormal uptake. CHEST: Lungs & Airways: No abnormal uptake. Pleura & Pericardium: No abnormal uptake. Cardiovascular: No abnormal uptake. Mediastinum & Lymph Nodes: Intense uptake within the distal esophagus is likely physiologic/inflammat ory, for example related to underlying reflux esophagitis. No FDG avid thoracic adenopathy. Chest Wall: No abnormal uptake. Bilateral gynecomastia. ABDOMEN AND PELVIS: Hepatobiliary: No abnormal uptake. Spleen: No abnormal uptake. No splenomegaly. Pancreas: No abnormal uptake. Adrenals: No abnormal uptake. Urinary Tract: No abnormal uptake. GI Tract: No abnormal uptake. No dilated bowel. Peritoneum: No abnormal uptake. Vasculature: No abnormal uptake. Retroperitoneum & Lymph Nodes: Right inguinal nodes have increased slightly in size and FDG avidity. For example, a 0.9 cm right inguinal node measures SUV max 2.7 (4:295), previously 0.7 cm with SUV max 2.3; a 1.2 cm right inguinal node measures SUV max 2.4 (4:313), previously 0.7 cm with SUV max 1.4. Pelvis: No abnormal uptake. MUSCULOSKELETAL: Osseous: No abnormal uptake. Degenerative changes. Soft Tissues: No abnormal uptake. DIVISION OF RADIOLOGY Provider, 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 INDICATION: Subsequent treatment strategy. TECHNIQUE: Radiopharmaceutical was administered IV followed about 60 minutes later by PET imaging from eyes to proximal thighs. Free breathing, low dose CT of the same body region was acquired without IV contrast for attenuation correction and anatomic localization. * CT Dose-Length Product (DLP): 284 mGy*cm * CT Dose Reduction Employed: Yes * Blood glucose (mg/dL): 88 * Radiopharmaceutical Activity: 14.4 mCi * Radiopharmaceutical: E78-Juemvieuztqjcfhfo e (FDG) * All reported standardized uptake values represent maximum SUV (SUVmax) per body weight, unless otherwise specified. COMPARISON: FDG PET/CT 08/12/2023 CORRELATION: No relevant imaging available RESULT: REFERENCES: SUV reference values: * Blood pool (descending aorta) activity: SUVmax 2.2 * Background liver activity: SUVmax 2.7 Benefits Director (topogram) images: No additional findings. Notes and limitations: * Standardized uptake values indicate the highest activity concentration (SUVmax) at a given location but can be variable and are not absolute. * Physiologic/non-neopl astic uptake is common in the brain, extraocular muscles, oral cavity, tonsils, salivary glands, vocal cords, myocardium, liver, GI tract, urinary tract, and bone marrow among others. Certain regions and organ systems can have more intense uptake, which could confound or obscure some pathology. * Unenhanced imaging is limited for the evaluation of some pathology and the acquired CT was not designed to produce or replace diagnostic CT scan quality. * PET-CT is often not sensitive for pulmonary nodules less than 8 mm. HEAD AND NECK: Imaged Head: No abnormal uptake. Mild right maxillary sinus mucoperiosteal thickening. Neck & Lymph Nodes: There is persistent intense uptake at the adenoids and bilateral tonsils. For example, uptake at the adenoids measures SUV max 6.9 (previous SUV max 7.5) and uptake at the palatine tonsils measures SUV max 13.9 on the left (previous SUV max 13.2 on the right). Persistent FDG avid bilateral cervical nodes. For example, a 1.5 cm right level 2a node measures SUV max 3.9 (4:40), previously 1.5 cm with SUV max 4.1. A 1 cm left level 2b node measures SUV max 3.4 (4:35), previously 1 cm with SUV max 3.8. Thyroid: No abnormal uptake. CHEST: Lungs & Airways: No abnormal uptake. Pleura & Pericardium: No abnormal uptake. Cardiovascular: No abnormal uptake. Mediastinum & Lymph Nodes: Intense uptake within the distal esophagus is likely physiologic/inflammat ory, for example related to underlying reflux esophagitis. No FDG avid thoracic adenopathy. Chest Wall: No abnormal uptake. Bilateral gynecomastia. ABDOMEN AND PELVIS: Hepatobiliary: No abnormal uptake. Spleen: No abnormal uptake. No splenomegaly. Pancreas: No abnormal uptake. Adrenals: No abnormal uptake. Urinary Tract: No abnormal uptake. GI Tract: No abnormal uptake. No dilated bowel. Peritoneum: No abnormal uptake. Vasculature: No abnormal uptake. Retroperitoneum & Lymph Nodes: Right inguinal nodes have increased slightly in size and FDG avidity. For example, a 0.9 cm right inguinal node measures SUV max 2.7 (4:295), previously 0.7 cm with SUV max 2.3; a 1.2 cm right inguinal node measures SUV max 2.4 (4:313), previously 0.7 cm with SUV max 1.4. Pelvis: No abnormal uptake. MUSCULOSKELETAL: Osseous: No abnormal uptake. Degenerative changes. Soft Tissues: No abnormal uptake. IMPRESSION IMPRESSION: HEAD/NECK: * Persistent intense uptake at the adenoids and bilateral tonsils. * Persistent mildly FDG avid bilateral cervical nodes. CHEST: * No FDG avid neoplastic process. * Intense uptake within the distal esophagus is likely physiologic/inflammat ory, for example related to underlying reflux esophagitis. Clinical correlation recommended. If indicated, further evaluation can be obtained with endoscopy. ABDOMEN/PELVIS: * Right inguinal nodes have increased slightly in size and FDG avidity, still with mild uptake. MUSCULOSKELETAL: * No FDG avid neoplastic process. Deauville Score: 4 * Score 1: No uptake above the background * Score 2: Uptake equal to or below mediastinum * Score 3: Uptake above mediastinum but equal to or below liver * Score 4: Uptake slightly to moderately above liver * Score 5: Uptake markedly above liver or a new site of disease * Score X: New area(s) of uptake unlikely to be related t (more content not included)... [facility] PET+CT Guidance for localiza tion of tumor of Skull base to mid-thigh-- W 18F-FDG IVOrdered By: [facility] Provider on 01-12-2024 [facility] CBC W Auto Differential pane l (Bld)on 01-04-2024 Basophils (Bld) [#/Vol] 0.03 10*3/uL [facility] Basophils/100 WBC (Bld) 0.5 % [facility] Differential cell count method Nom (Bld) Auto [facility] Eosinophils (Bld) [#/Vol] 0.21 10*3/uL [facility] Eosinophils/100 WBC (Bld) 3.2 % [facility] Erythrocyte distribution width (RBC) [Ratio] 12.8 % 11.5 - 15.0 % [facility] Hematocrit (Bld) [Volume fraction] 44.2 % 39.0 - 51.0 % [facility] Hemoglobin (Bld) [Mass/Vol] 14.8 g/dL 13.0 - 17.0 g/dL [facility] Immature granulocytes (Bld) [#/Vol] [facility] Immature granulocytes/100 WBC (Bld) 0.2 % [facility] Lymphocytes (Bld) [#/Vol] 2.23 10*3/uL [facility] Lymphocytes/100 WBC (Bld) 33.9 % [facility] MCH (RBC) [Entitic mass] 30.3 pg 26. 0 - 34.0 pg [facility] MCHC (RBC) [Mass/Vol] 33.5 g/dL 30.5 - 36.0 g/dL [facility] MCV (RBC) [Entitic vol] 90.4 fL 80.0 - 100.0 fL [facility] Monocytes (Bld) [#/Vol] 0.68 10*3/uL [facility] Monocytes/100 WBC (Bld) 10.4 % [facility] Neutrophils (Bld) [#/Vol] 3.41 10*3/uL [facility] Neutrophils/100 WBC (Bld) 51.8 % [facility] Nucleated RBC (Bld) [#/Vol] [facility] Nucleated RBC/100 WBC (Bld) [Ratio] 0.0 % /100 WBC [facility] Platelet mean volume (Bld) [Entitic vol] 9.3 fL 9.0 - 12.7 fL [facility] Platelets (Bld) [#/Vol] 188 10*3/uL [facility] RBC (Bld) [#/Vol] 4.89 10*6/uL 4.20 - 6.00 m/uL [facility] WBC (Bld) [#/Vol] 6.57 10*3/uL [facility] Basophils (Bld) [#/Vol] 0.03 10*3/uL Normal <0.[address] [facility] Comment on above: Order Comment: Speci men Type: BLOOD SPECIMENOrdering Facility: [facility] Address: [address] [place], [place] [id number] Performed By: #### 5 7021-8 ####[facility] LABCLIA [id number] [place] [address] Basophils/100 WBC (Bld) 0.5 % Normal [facility] Comment on above: Order Comment: Speci men Type: BLOOD SPECIMENOrdering Facility: [facility] Address: [address] [place] [address] Performed By: #### 5 7021-8 ####[facility] LABCLIA [id number] [place] [address] Differential cell count method Nom (Bld) Auto Normal [facility] Comment on above: Order Comment: Speci men Type: BLOOD SPECIMENOrdering Facility: [facility] Address: [address] [place] [address] Performed By: #### 5 7021-8 ####[facility] LABCLIA [id number] [place] [address] Eosinophils (Bld) [#/Vol] 0.21 10*3/uL Normal <0.[address] [facility] Comment on above: Order Comment: Speci men Type: BLOOD SPECIMENOrdering Facility: [facility] Address: [address] [place] [address] Performed By: #### 5 7021-8 ####[facility] LABCLIA [id number] [place] [address] Eosinophils/100 WBC (Bld) 3.2 % Normal [facility] Comment on above: Order Comment: Speci men Type: BLOOD SPECIMENOrdering Facility: [facility] Address: [address] [place] [address] Performed By: #### 5 7021-8 ####[facility] LABCLIA [id number] [place] [address] Erythrocyte distribution width (RBC) [Ratio] 12.8 % Normal 11.5-15.[address] [facility] Comment on above: Order Comment: Speci men Type: BLOOD SPECIMENOrdering Facility: [facility] Address: [address] [place] [address] Performed By: #### 5 7021-8 ####[facility] LABCLIA [id number] [place] [address] Hematocrit (Bld) [Volume fraction] 44.2 % Normal 39.0-51.[address] [facility] Comment on above: Order Comment: Speci men Type: BLOOD SPECIMENOrdering Facility: [facility] Address: [address] [place] [address] Performed By: #### 5 7021-8 ####[facility] LABCLIA [id number] [place] [address] Hemoglobin (Bld) [Mass/Vol] 14.8 g/dL Normal 13.0-17.[address] [facility] Comment on above: Order Comment: Speci men Type: BLOOD SPECIMENOrdering Facility: [facility] Address: [address] [place] [address] Performed By: #### 5 7021-8 ####[facility] LABCLIA [id number] [place] [address] Immature granulocytes (Bld) [#/Vol] 10*3/uL Normal <0.[address] [facility] Comment on above: Order Comment: Speci men Type: BLOOD SPECIMENOrdering Facility: [facility] Address: [address] [place] [address] Performed By: #### 5 7021-8 ####[facility] LABCLIA [id number] [place] [address] Immature granulocytes/100 WBC (Bld) 0.2 % Normal [facility] Comment on above: Order Comment: Speci men Type: BLOOD SPECIMENOrdering Facility: [facility] Address: [address] [place] [address] Performed By: #### 5 7021-8 ####[facility] LABCLIA [id number] [place] [address] Lymphocytes (Bld) [#/Vol] 2.23 10*3/uL Normal 1.00-4.[address] [facility] Comment on above: Order Comment: Speci men Type: BLOOD SPECIMENOrdering Facility: [facility] Address: [address] [place] [address] Performed By: #### 5 7021-8 ####[facility] LABCLIA [id number] [place] [address] Lymphocytes/100 WBC (Bld) 33.9 % Normal [facility] Comment on above: Order Comment: Speci men Type: BLOOD SPECIMENOrdering Facility: [facility] Address: [address] [place] [address] Performed By: #### 5 7021-8 ####[facility] LABCLIA [id number] [place] [address] MCH (RBC) [Entitic mass] 30.3 pg Normal 26.0-34.[address] [facility] Comment on above: Order Comment: Speci men Type: BLOOD SPECIMENOrdering Facility: [facility] Address: [address] [place] [address] Performed By: #### 5 7021-8 ####[facility] LABCLIA [id number] [place] [address] MCHC (RBC) [Mass/Vol] 33.5 g/dL Normal 30.5-36.0 [facility] Comment on above: Order Comment: Speci men Type: BLOOD SPECIMENOrdering Facility: [facility] Address: [address] [place] [address] Performed By: #### 5 7021-8 ####[facility] LABCLIA [id number] [place] [address] MCV (RBC) [Entitic vol] 90.4 fL Normal 80.0-100.0 [facility] Comment on above: Order Comment: Speci men Type: BLOOD SPECIMENOrdering Facility: [facility] Address: [address] [place] [address] Performed By: #### 5 7021-8 ####[facility] LABCLIA [id number] [place] [address] Monocytes (Bld) [#/Vol] 0.68 10*3/uL Normal <0.[address] [facility] Comment on above: Order Comment: Speci men Type: BLOOD SPECIMENOrdering Facility: [facility] Address: [address] [place] [address] Performed By: #### 5 7021-8 ####[facility] LABCLIA [id number] [place] [address] Monocytes/100 WBC (Bld) 10.4 % Normal [facility] Comment on above: Order Comment: Speci men Type: BLOOD SPECIMENOrdering Facility: [facility] Address: [address] [place] [address] Performed By: #### 5 7021-8 ####[facility] LABCLIA [id number] [place] [address] Neutrophils (Bld) [#/Vol] 3.41 10*3/uL Normal 1.45-7.[address] [facility] Comment on above: Order Comment: Speci men Type: BLOOD SPECIMENOrdering Facility: [facility] Address: [address] [place] [address] Performed By: #### 5 7021-8 ####[facility] LABCLIA [id number] [place] [address] Neutrophils/100 WBC (Bld) 51.8 % Normal [facility] Comment on above: Order Comment: Speci men Type: BLOOD SPECIMENOrdering Facility: [facility] Address: [address] [place] [address] Performed By: #### 5 7021-8 ####[facility] LABCLIA [id number] [place] [address] Nucleated RBC (Bld) [#/Vol] 10*3/uL Normal <0.[address] [facility] Comment on above: Order Comment: Speci men Type: BLOOD SPECIMENOrdering Facility: [facility] Address: [address] [place] [address] Performed By: #### 5 7021-8 ####[facility] LABCLIA [id number] [place] [address] Nucleated RBC/100 WBC (Bld) [Ratio] 0.0 /100 WBC Normal [facility] Comment on above: Order Comment: Speci men Type: BLOOD SPECIMENOrdering Facility: [facility] Address: [address] [place] [address] Performed By: #### 5 7021-8 ####[facility] LABCLIA [id number] [place] [address] Platelet mean volume (Bld) [Entitic vol] 9.3 fL Normal 9.0-12.[address] [facility] Comment on above: Order Comment: Speci men Type: BLOOD SPECIMENOrdering Facility: [facility] Address: [address] [place] [address] Performed By: #### 5 7021-8 ####[facility] LABCLIA [id number] [place] [address] Platelets (Bld) [#/Vol] 188 10*3/uL Normal 150-[address] [facility] Comment on above: Order Comment: Speci men Type: BLOOD SPECIMENOrdering Facility: [facility] Address: [address] [place] [address] Performed By: #### 5 7021-8 ####[facility] LABCLIA [id number] [place] [address] RBC (Bld) [#/Vol] 4.89 10*6/uL Normal 4.20-6.00 [facility] Comment on above: Order Comment: Speci men Type: BLOOD SPECIMENOrdering Facility: [facility] Address: [address] [place] [address] Performed By: #### 5 7021-8 ####[facility] LABCLIA [id number] [place] [address] WBC (Bld) [#/Vol] 6.57 10*3/uL Normal 3.70-11.00 [facility] Comment on above: Order Comment: Speci men Type: BLOOD SPECIMENOrdering Facility: [facility] Address: [address] [place] [address] [place] [id number] Performed By: #### 5 7021-8 ####[facility] LABCLIA [id number] [place] [address] Comprehensive metabolic 2000 panelon 01-04-2024 Albumin [Mass/Vol] 4.8 g/dL 3.9 - 4.9 g/dL [facility] ALP [Catalytic activity/Vol] 103 U/L 38 - 113 U/L [facility] ALT [Catalytic activity/Vol] 53 U/L 10 - 54 U/L [facility] Anion gap [Moles/Vol] 10 mmol/L 8 - 15 mmol/L [facility] AST [Catalytic activity/Vol] 24 U/L 14 - 40 U/L [facility] Bilirubin [Mass/Vol] 0.3 mg/dL 0.2 - 1 .3 mg/dL [facility] Calcium [Mass/Vol] 10.0 mg/dL 8.5 - 10. 2 mg/dL [facility] Chloride [Moles/Vol] 103 mmol/L 98 - 10 7 mmol/L [facility] CO2 [Moles/Vol] 28 mmol/L 22 - 30 mmol/L [facility] Creatinine [Mass/Vol] 1.23 mg/dL High 0.73 - 1.22 mg/dL [facility] GFR/1.73 sq M.predicted among non-blacks MDRD (S/P/Bld) [Vol rate/Area] 74 mL/min/{1.73_m2} - PINF [facility] Comment on above: Estimated Glomerular Filtration Rate (eGFR) is calculated using the 2020 CKD-EPI creatinine equation. This equation utilizes serum creatinine, sex, and age as parameters. The creatinine assay has traceable calibration to isotope dilution-mass spectrometry. Refer to KDIGO guidelines for clinical interpretation. In patients with unstable renal function, e.g. those with acute kidney injury, the eGFR may not accurately reflect actual GFR. Glucose [Mass/Vol] 92 mg/dL 74 - 99 mg/dL [facility] Comment on above: The [place] Diabete s Association (ADA) provides guidance for cutoff values [...] Standards of Medical Care in Diabetes 2016, [place] Diabetes Association. Diabetes Care. 2016.39(Suppl 1). Interpretation and review of laboratory results Abnormal [facility] Potassium [Moles/Vol] 4.4 mmol/L 3.7 - 5.1 mmol/L [facility] Protein [Mass/Vol] 7.2 g/dL 6.3 - 8.0 g/dL [facility] Sodium [Moles/Vol] 141 mmol/L 136 - 144 mmol/L [facility] Urea nitrogen [Mass/Vol] 18 mg/dL 9 - 24 mg/dL [facility] Albumin [Mass/Vol] 4.8 g/dL Normal 3.9-4.9 [facility] Comment on above: Order Comment: Speci men Type: BLOOD SPECIMENOrdering Facility: [facility] Address: [address] [place] [address] Performed By: #### 2 43238, ####[facility] LABCLIA [id number] [place] [address] ALP [Catalytic activity/Vol] 103 U/L Normal 38-[address] [facility] Comment on above: Order Comment: Speci men Type: BLOOD SPECIMENOrdering Facility: [facility] Address: [address] [place] [address] Performed By: #### 2 4323-8, 0 ####[facility] LABCLIA [id number] [place] [address] ALT [Catalytic activity/Vol] 53 U/L Normal 10-[address] [facility] Comment on above: Order Comment: Speci men Type: BLOOD SPECIMENOrdering Facility: [facility] Address: [address] [place] [address] Performed By: #### 2 4323-8, 2-0 ####[facility] LABCLIA [id number] [place] [address] Anion gap [Moles/Vol] 10 mmol/L Normal 8-15 [facility] Comment on above: Order Comment: Speci men Type: BLOOD SPECIMENOrdering Facility: [facility] Address: [address] [place], [place] [id number] Performed By: #### 2 4323-8, 2531-0 ####[facility] LABCLIA [id number] [place] [address] AST [Catalytic activity/Vol] 24 U/L Normal 14-[address] [facility] Comment on above: Order Comment: Speci men Type: BLOOD SPECIMENOrdering Facility: [facility] Address: [address] [place] [address] Performed By: #### 2 4323-8, 2531-0 ####[facility] LABCLIA [id number] [place] [address] Bilirubin [Mass/Vol] 0.3 mg/dL Normal 0.2-1.3 [facility] Comment on above: Order Comment: Speci men Type: BLOOD SPECIMENOrdering Facility: [facility] Address: [address] [place] [address] Performed By: #### 2 4323-8, 2532-0 ####[facility] LABCLIA [id number] [place] [address] Calcium [Mass/Vol] 10.0 mg/dL Normal 8.5-10.2 [facility] Comment on above: Order Comment: Speci men Type: BLOOD SPECIMENOrdering Facility: [facility] Address: [address] [place] [address] Performed By: #### 2 4323-8, 2532-0 ####[facility] LABCLIA [id number] [place] [address] Chloride [Moles/Vol] 103 mmol/L Normal 98-107 [facility] Comment on above: Order Comment: Speci men Type: BLOOD SPECIMENOrdering Facility: [facility] Address: [address] [place] [address] Performed By: #### 2 4323-8, 2532-0 ####[facility] LABCLIA [id number] [place] [address] CO2 [Moles/Vol] 28 mmol/L Normal 22-[address] [facility] Comment on above: Order Comment: Speci men Type: BLOOD SPECIMENOrdering Facility: [facility] Address: [address] [place] [address] Performed By: #### 2 4323-8, 2531-0 ####[facility] LABCLIA [id number] [place] [address] Creatinine [Mass/Vol] 1.23 mg/dL High 0.73-1.22 [facility] Comment on above: Order Comment: Speci men Type: BLOOD SPECIMENOrdering Facility: [facility] Address: [address] [place] [address] Performed By: #### 2 4323-8, 2531-0 ####[facility] LABCLIA [id number] [place] [address] Creatinine and Glomerular filtration rate.predicted panel (S/P/Bld) 74 mL/min/1.73m??? Normal >=[address] [facility] Comment on above: Order Comment: Speci men Type: BLOOD SPECIMENOrdering Facility: [facility] Address: [address] [place] [address] Result Comment: Kirsten mated Glomerular Filtration Rate (eGFR) is calculated using the 2020 CKD-EPI creatinine equation. This equation utilizes serum creatinine, sex, and age as parameters. The creatinine assay has traceable calibration to isotope dilution-mass spectrometry. Refer to KDIGO guidelines for clinical interpretation. In patients with unstable renal function, e.g. those with acute kidney injury, the eGFR may not accurately reflect actual GFR. Performed By: #### 2 4328, ####[facility] LABCLIA [id number] [place] [address] Glucose [Mass/Vol] 92 mg/dL Normal 74-99 [facility] Comment on above: Order Comment: Speci men Type: BLOOD SPECIMENOrdering Facility: [facility] Address: [address] [place] [address] Result Comment: The [place] Diabetes Association (ADA) provides guidance for cutoff [...] Standards of Medical Care in Diabetes 2016, [place] Diabetes Association. Diabetes Care. 2016.39(Suppl 1). Performed By: #### 2 4328, ####[facility] LABCLIA [id number] [place] [address] Potassium [Moles/Vol] 4.4 mmol/L Normal 3.7-5.1 [facility] Comment on above: Order Comment: Speci men Type: BLOOD SPECIMENOrdering Facility: [facility] Address: [address] [place] [address] Performed By: #### 2 4328, 0 ####[facility] LABCLIA [id number] [place] [address] Protein [Mass/Vol] 7.2 g/dL Normal 6.3-8.0 [facility] Comment on above: Order Comment: Speci men Type: BLOOD SPECIMENOrdering Facility: [facility] Address: [address] [place] [address] Performed By: #### 2 4323-8, 2532-0 ####[facility] LABCLIA [id number] [place] [address] Sodium [Moles/Vol] 141 mmol/L Normal 136-144 [facility] Comment on above: Order Comment: Speci men Type: BLOOD SPECIMENOrdering Facility: [facility] Address: [address] [place] [address] Performed By: #### 2 4323-8, 2532-0 ####[facility] LABIA [id number] [place] [address] Urea nitrogen [Mass/Vol] 18 mg/dL Normal 9-[address] [facility] Comment on above: Order Comment: Speci men Type: BLOOD SPECIMENOrdering Facility: [facility] Address: [address] [place] [address] Performed By: #### 2 4323-8, 2532-0 ####[facility] LABIA [id number] [place] [address] GLUCOSE, BLOOD (POC)on 01-03 Glucose [Mass/Vol] 88 mg/dL 74 - 99 mg/dL [facility] Comment on above: Location:[facility], [address] [place] [address] , [place], [place], [address] The Accu-Chek Inform II glucose meter has not been approved for testing on patients receiving intensive medical intervention or therapy and results from this point of care glucose test should not be used for patient management decisions in these cases. Inaccurate results may also occur from other interfering factors, such as N-acetylcysteine (blood concentrations of greater than 5mg/dL), galactose, extremes of hematocrit (<10 or >65), or high doses of ascorbic acid (vitamin C) greater than 3mg/dL. Consider alternate testing mechanisms (e.g. core lab, blood gas instrument) in the above situations. [facility] LACTATE DEHYDROGENASEOrdered By: Bina Aggarwal on 01-04-2024 LDH [Catalytic activity/Vol] 154 U/L 135 - 225 U/L [facility] LDH SerPl-cCncon 01-04-2024 LDH [Catalytic activity/Vol] 154 U/L Normal 135-[address] [facility] Comment on above: Order Comment: Speci men Type: BLOOD SPECIMENOrdering Facility: [facility] Address: [address] [place] [address] Performed By: #### 2 4323-8, 2532-0 ####[facility] LABCLIA [id number] [place] [address] LDH [Catalytic activity/Vol] Ordered By: Bina Aggarwal on 01-04-2024 Interpretation and review of laboratory results Normal [facility] NM PET/CT SKULL-THIGH SUBQon 01-04-2024 NM PET/CT SKULL-THIGH SUBQ * * *Final Report* * * DATE OF EXAM: Jan 04 2024 2:12PM NRN [id number] - NM PET/CT SKULL-THIGH SUBQ / PROCEDURE REASON: multiple diagnoses * * * * Physician Interpretation * * * * RESULT: EXAMINATION: BODY FDG PET-CT CLINICAL HISTORY: 43 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 INDICATION: Subsequent treatment strategy. TECHNIQUE: Radiopharmaceutical was administered IV followed about 60 minutes later by PET imaging from eyes to proximal thighs. Free breathing, low dose CT of the same body region was acquired without IV contrast for attenuation correction and anatomic localization. * CT Dose-Length Product (DLP): 284 mGy*cm * CT Dose Reduction Employed: Yes * Blood glucose (mg/dL): 88 * Radiopharmaceutical Activity: 14.4 mCi * Radiopharmaceutical: T65-Tioucubqxavpejbvw e (FDG) * All reported standardized uptake values represent maximum SUV (SUVmax) per body weight, unless otherwise specified. COMPARISON: FDG PET/CT 08/12/2023 CORRELATION: No relevant imaging available RESULT: REFERENCES: SUV reference values: * Blood pool (descending aorta) activity: SUVmax 2.2 * Background liver activity: SUVmax 2.7 Benefits Director (topogram) images: No additional findings. Notes and limitations: * Standardized uptake values indicate the highest activity concentration (SUVmax) at a given location but can be variable and are not absolute. * Physiologic/non-neopl astic uptake is common in the brain, extraocular muscles, oral cavity, tonsils, salivary glands, vocal cords, myocardium, liver, GI tract, urinary tract, and bone marrow among others. Certain regions and organ systems can have more intense uptake, which could confound or obscure some pathology. * Unenhanced imaging is limited for the evaluation of some pathology and the acquired CT was not designed to produce or replace diagnostic CT scan quality. * PET-CT is often not sensitive for pulmonary nodules less than 8 mm. HEAD AND NECK: Imaged Head: No abnormal uptake. Mild right maxillary sinus mucoperiosteal thickening. Neck and Lymph Nodes: There is persistent intense uptake at the adenoids and bilateral tonsils. For example, uptake at the adenoids measures SUV max 6.9 (previous SUV max 7.5) and uptake at the palatine tonsils measures SUV max 13.9 on the left (previous SUV max 13.2 on the right). Persistent FDG avid bilateral cervical nodes. For example, a 1.5 cm right level 2a node measures SUV max 3.9 (4:40), previously 1.5 cm with SUV max 4.1. A 1 cm left level 2b node measures SUV max 3.4 (4:35), previously 1 cm with SUV max 3.8. Thyroid: No abnormal uptake. CHEST: Lungs and Airways: No abnormal uptake. Pleura and Pericardium: No abnormal uptake. Cardiovascular: No abnormal uptake. Mediastinum and Lymph Nodes: Intense uptake within the distal esophagus is likely physiologic/inflammat ory, for example related to underlying reflux esophagitis. No FDG avid thoracic adenopathy. Chest Wall: No abnormal uptake. Bilateral gynecomastia. ABDOMEN AND PELVIS: Hepatobiliary: No abnormal uptake. Spleen: No abnormal uptake. No splenomegaly. Pancreas: No abnormal uptake. Adrenals: No abnormal uptake. Urinary Tract: No abnormal uptake. GI Tract: No abnormal uptake. No dilated bowel. Peritoneum: No abnormal uptake. Vasculature: No abnormal uptake. Retroperitoneum and Lymph Nodes: Right inguinal nodes have increased slightly in size and FDG avidity. For example, a 0.9 cm right inguinal node measures SUV max 2.7 (4:295), previously 0.7 cm with SUV max 2.3; a 1.2 cm right inguinal node measures SUV max 2.4 (4:313), previously 0.7 cm with SUV max 1.4. Pelvis: No abnormal uptake. MUSCULOSKELETAL: Osseous: No abnormal uptake. Degenerative changes. Soft Tissues: No abnormal uptake. IMPRESSION: HEAD/NECK: * Persistent intense uptake at the adenoids and bilateral tonsils. * Persistent mildly FDG avid bilateral cervical nodes. CHEST: * No FDG avid neoplastic process. * Intense uptake within the distal esophagus is likely physiologic/inflammat ory, for example related to underlying reflux esophagitis. Clinical correlation recommended. If indicated, further evaluation can be obtained with endoscopy. ABDOMEN/PELVIS: * Right inguinal nodes have increased slightly in size and FDG avidity, still with mild uptake. MUSCULOSKELETAL: * No FDG avid neoplastic process. Deauville Score: 4 * Score 1: No uptake above the background * Score 2: Uptake equal to or below mediastinum * Score 3: Uptake above mediastinum but equal to or below liver * Score 4: Uptake slightly to moderately above liver * Score 5: Uptake markedly above liver or a new site of disease * Score X: New area(s) of uptake unlikely to be related to lymphoma Transcribe Date/Time: Jan 12 2024 11:22A Dictated by: ALYX ELLIOTT MD This examination was interpreted and the report reviewed and electroni (more content not included)... Normal [facility] PET+CT Guidance for localiza tion of tumor of Skull base to mid-thigh-- W 18F-FDG Iris 01-04-2024 Radiology Study observation (narrative) [facility] Sherlyn 12-21-2023 CNPN Telephone (NCCAP) JOSELYN CARNES ([id number]) 1980 [place] Date Time Provider Department 12/21/23 RICH [facility] During your visit today, we recorded the following information about you: Vita Mota 12/21/2023 8:[address] Islas is requesting triage to call results of Pet scan and lab to be done on 01-04-24. Thank you Carola Nicolas RN 01/12/2024 12:09 PM Signed Nhung: please review PET resulted today and advise SANDRA Gonzalez Vivek, MD 01/13/2024 12:35 PM Signed So he still hasn't seen ENT as far as I know - I'd like the ENT doc to review PET/CT because he's got uptake in adenoids. Low grade uptake in inguinal LN's Neck (with ENT ) will need tissue sampling. Carola Nicolas RN 01/13/2024 12:49 PM Signed Called and discussed with pt. He is seeing ENT, in [place]: 02/04/24 @ [facility] Address: [address] [place] [address] Dr [place] Call placed to [phone], Pt seeing Dr Burr, ENT phone # provided [phone]. Will call after [address] pm to inform of Dr Islas's recommendations. Sangeeta: please forward PET/CT to SANDRA Chau Natalie, RN 01/13/2024 1:[address]oke with Dr Aminah Castrejon's office she is aware of recommendations per Nhung . Also updated we are sending01/04/24 PET imaging/report. She will update Dr Burr. They have a cancelation appt 01/25/24 and will call pt to move appt up. I will call office for update after 01/25/24. Carola Nicolas RN Nhung: FYI: (pt is already scheduled for f/u with you 02/19/24) Cassie Bledsoe 01/13/2024 1:40 PM Signed Report faxed. Images being pushed to [employer]. Allergies As of Date: 12/21/2023 Noted Allergy Reaction BACTRIM (SULFAMETHOXAZOLE-TRI METH*05/12/2016 4 - Hives Comments: Itching Patient denied any reaction history or allergy to Bactrim or Sulfa during history obtained on 07/14/18; please see Allergy consult note from that date for further details. AMOXICILLIN 07/12/2018 7 - Swelling Comments: Facial swelling; Negative penicillin skin testing on 07/14/18. Please see allergy consult note from that date. recommend test dosing PCN prior to administration. Date Reviewed: 12/18/2023 Reviewed by: Alondra Montoya MA - Fully Assessed Reason for Visit: Results [95] Prescriptions as of 01/13/2024 - gabapentin (NEURONTIN) 300 mg capsule Take 300 mg by mouth. - predniSONE (DELTASONE) 10 mg tablet Take 10 mg by mouth. - ibuprofen (MOTRIN) 800 mg tablet Take 800 mg by mouth three times a day as needed. - cyclobenzaprine (FLEXERIL) 10 mg tablet Take 10 mg by mouth. - buprenorphine (BUTRANS) 5 mcg/hour Apply 1 Patch as directed one time a week for 30 days. - senna-docusate (SENNA-S) 8.6-50 mg per tablet Take 1 tablet by mouth once daily. - OLANZapine (ZYPREXA) 5 mg tablet Take 1 tablet by mouth daily at bedtime. - ibuprofen (MOTRIN) 800 mg tablet Take 800 mg by mouth. Meds Comments as of 11/05/2017: Patient states Dr. Ceballos in the cancer center at [facility] discontinued all of his medication Duglas A Problem List As Of Date 12/21/2023 Noted Resolved Hodgkin's disease (HCC) [C81.90] 11/18/2016 02/11/2017 Blood clot due to device, implant, or graft [T8*11/18/2016 Cancer associated pain [G89.3] 11/18/2016 Anxiety and depression [F41.9, F32.A] 11/18/2016 Moderate smoker (20 or less per day) [F17.210] 11/18/2016 Hodgkin lymphoma (HCC) [C81.90] 11/18/2016 Personal history of diseases of blood and blood*11/18/2016 Attention deficit hyperactivity disorder (ADHD)*12/29/2016 Depression (emotion) [F32.A] 12/29/2016 Cannabis abuse, daily use [F12.10] 12/29/2016 Cigarette smoker one half pack a day or less [F*12/29/2016 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 Chemotherapy induced nausea and vomiting [R11.2*01/28/2017 02/13/2017 Pancytopenia due to antineoplastic chemotherapy*01/29/20 17 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, *01/28/2017 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]01/28/2017 Central line complication [T82.9XXA] 01/31/2017 02/09/2017 Chronic systolic CHF (congestive heart failure)*02/09/2017 Acute esophagitis [K20.90] 02/09/2017 02/13/2017 Chronic back pain [M54.9, G89.29] 02/09/2017 Mild acid reflux [K21.9] 02/11/2017 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 Severe sepsis (HCC) [A41.9, R65.20] 07/12/2018 07/22/2018 HFrEF (heart failure with reduced ejection frac*07/12/2018 Acute thrombosis of right axillary vein (HCC) [*07/12/2018 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 Normal [facility] CNPN Telephone (NCCAP) JOSELYN CARNES ([id number]) 1980 [place] Date Time Provider Department 12/21/23 RICH HILL NCCGUADALUPE During your visit today, we recorded the following information about you: Vita Mota 12/21/2023 8:55 AM Signed Please refer to ENT in [place] / [facility]. The office phone number is [phone]. Address [address] in [place]. Sangeeta, Please fax records Sylvester, Please follow up on this appt. Thank you Cara Brown 12/21/2023 2:09 PM Signed Sangeeta: Information ready for you. Cassie Lees 12/21/2023 2:34 PM Signed Records faxed to [facility] ENT. Cara Brown 12/31/2023 10:11 AM Signed Called [facility] ENT office spoke with Cassie. She states they have received this referral and their office has been extremely busy and asked if we could call patient and ask him to call their office. I tried to call patient but unable to reach and unable to leave message mail box not set up. Carola Ahuja RN 12/31/2023 11:25 AM Signed Spoke with pt. He reports he called and is awaiting a call back to get scheduled. Encouraged to call them back if he does not hear back by Thursday, to check status of appt. SANDRA Gonzalez Cara 01/18/2024 1:08 PM Signed Called ENT spoke with Dominga. Patient is scheduled to see Dr Burr on 01/24. Cara Meehan Allergies As of Date: 12/21/2023 Noted Allergy Reaction BACTRIM (SULFAMETHOXAZOLE-TRI METH*05/12/2016 4 - Hives Comments: Itching Patient denied any reaction history or allergy to Bactrim or Sulfa during history obtained on 07/14/18; please see Allergy consult note from that date for further details. AMOXICILLIN 07/12/2018 7 - Swelling Comments: Facial swelling; Negative penicillin skin testing on 07/14/18. Please see allergy consult note from that date. recommend test dosing PCN prior to administration. Date Reviewed: 12/18/2023 Reviewed by: Alondra Montoya MA - Fully Assessed Reason for Visit: Future Appointment [256] Prescriptions as of 01/25/2024 - gabapentin (NEURONTIN) 300 mg capsule Take 1 capsule by mouth three times a day for 30 days. - naloxone 4 mg/actuation nasal spray (NARCAN) Use 1 spray in one nostril as needed for overdose. May repeat every 2 to 3 min in alternating nostrils until medical assistance is available - buprenorphine (BUTRANS) 5 mcg/hour Apply 1 Patch as directed one time a week for 30 days. - ibuprofen (MOTRIN) 800 mg tablet Take 800 mg by mouth three times a day as needed. - cyclobenzaprine (FLEXERIL) 10 mg tablet Take 10 mg by mouth. - senna-docusate (SENNA-S) 8.6-50 mg per tablet Take 1 tablet by mouth once daily. Meds Comments as of 11/05/2017: Patient states Dr. Ceballos in the cancer center at [facility] discontinued all of his medication Duglas A Problem List As Of Date 12/21/2023 Noted Resolved Hodgkin's disease (HCC) [C81.90] 11/18/2016 02/11/2017 Blood clot due to device, implant, or graft [T8*11/18/2016 Cancer associated pain [G89.3] 11/18/2016 Anxiety and depression [F41.9, F32.A] 11/18/2016 Moderate smoker (20 or less per day) [F17.210] 11/18/2016 Hodgkin lymphoma (HCC) [C81.90] 11/18/2016 Personal history of diseases of blood and blood*11/18/2016 Attention deficit hyperactivity disorder (ADHD)*12/29/2016 Depression (emotion) [F32.A] 12/29/2016 Cannabis abuse, daily use [F12.10] 12/29/2016 Cigarette smoker one half pack a day or less [F*12/29/2016 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 Chemotherapy induced nausea and vomiting [R11.2*01/28/2017 02/13/2017 Pancytopenia due to antineoplastic chemotherapy*01/29/20 17 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, *01/28/2017 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]01/28/2017 Central line complication [T82.9XXA] 01/31/2017 02/09/2017 Chronic systolic CHF (congestive heart failure)*02/09/2017 Acute esophagitis [K20.90] 02/09/2017 02/13/2017 Chronic back pain [M54.9, G89.29] 02/09/2017 Mild acid reflux [K21.9] 02/11/2017 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 Severe sepsis (HCC) [A41.9, R65.20] 07/12/2018 07/22/2018 HFrEF (heart failure with reduced ejection frac*07/12/2018 Acute thrombosis of right axillary vein (HCC) [*07/12/2018 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)*07/12/2018 LUIZA (acute kidney injury) (HCC) [N17.9] 07/12/2018 07/14/2018 Pleural effusion on right [J90] 07/12/2018 07/22/2018 Nicotine use disorder, F17.2 [F17.200] 07/13/2018 Bacteremia [R78.81] 07/13/2018 07/22/2018 Malnutrition of moderate degree (HCC) [E44.0] 07/14/2018 Empyema (HCC) [J86.9] 07/14/2018 Opioid contract exists [Z79.891] 09/11/2023 Encounter Status:Closed by VITA MOTA on 01/25/24 [facility] CNOVSPon 12-18-2023 CNOVSP Visit (SP) Office (HEM[place]) JOSELYN CARNES ([id number]) 1980 M Date Time Provider Department 12/18/23 2:30 PM RICH HILL During your visit today, we recorded the following information about you: Temperature Pulse Respiration Blood pressure 97.8 degrees 67/minute 16/minute 125/79 Weight 96.1 kg Rich Hill MD 12/20/2023 6:23 PM Signed NAME: Joselyn Carnes CLINIC NO.: [id number] DATE OF SERVICE: December 18, 2023 (Liz) Some elements in this clinic note that are critical to medical decision making have been carefully reviewed and included from a prior clinic note dated: August 17, 2023 (Liz) Referring Provider: Self Additional Clinicians involved in Joselyn Carnes's care: DIAGNOSIS: Refractory Hodgkin's disease Nodular Lymphocyte-predominen t Hodgkin's Lymphoma ASSESSMENT: 43 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 After 6 x ABVD with CR and underwent consolidative RT to left inguinal nodes as well as T-spine. Unfortunately pruritus and lymphadenopathy heralded relapse in May 2016 and he underwent ICE x 3 followed by ASCT February 04, 2017. He was lost to follow up until 2019 when he had several imaging studies for dyspnea and spinal stenosis. He was again lost to follow up until when had recurring neck and groin pain in october 2022 and PET scan showed recurrence. However, he has had multiple issues with substance abuse and I don't see where he has had any oncologic workup since October 2022. Now continues to have fullness in the neck and palpable LN in right groin. PET showed only uptake in the tonsils and I will send him for ENT evaluation. He was addicted and using in July but has cleaned up - we will repeat PET/CT since it has been more than 4 months, and he can see ENT afterwards. PLAN: PET/CT with labs Triage to call results Referral to ENT Referral to palliative med RTC after ENT consultation and workup - about 8 weeks - HPI: CASE HISTORY: Reverse Chronological Order 08/12/2023 - PET/CT : Deauville Score: 4 HEAD/NECK: Diffuse uptake in the bilateral tonsillar regions. Mildly hypermetabolic bilateral cervical lymph nodes. 01/06/2023 - CT Lumbar Spine: Diffuse degenerative arthritis in the lumbar spine. 01/06/2023 - CT Cervical Spine: Disc degenerative disease in the cervical spine with particularly involvement of C5-C6 and C6-C7. Chronic bilateral maxillary sinusitis. 11/29/2022 - XR Chest: Lungs are clear. Small right effusion. No pleural effusion, pneumothorax, nor volume loss. Heart and mediastinal structures are unremarkable. Pulmonary vasculature stable. No significant change. 11/11/2022 - PET/CT: Deauville level 5 lymph nodes in the bilateral neck, as well as in the proximal left upper extremity. Deauville level 2 bilateral inguinal lymph nodes. Deauville level 2 right middle lobe lung mass. 12/06/2018 - MRI Brain: No acute infarct. 12/05/2018 - MRI Cervical Spine: Mild spinal canal stenosis, moderate right and mild left neural foraminal narrowing at C5-6 secondary to a disc bulge and uncovertebral overgrowth. Mild spinal canal stenosis and mild bilateral neural foraminal narrowing at C6-7 secondary to a disc bulge and uncovertebral overgrowth. 12/03/2018 - XR Chest: Persistent mild right pleural effusion with associated basilar atelectasis. Redemonstration of mild left hilar prominence which may be again further assessed by contrast-enhanced chest CT. 07/11/2018 - CT Chest: Suboptimal contrast opacification however no evidence of pulmonary embolism. Irregularity of right axillary vein with multiple collaterals extending proximal to the site that could indicate venous stenosis or thrombosis. Further assessment with ultrasound should be considered. Moderate size right effusion with mucus plugging and atelectasis right lung base and additional smaller sites of subsegmental atelectasis. 01/2017 - Received ASCT with no major complications Protocol(s):3422 1M Preparative regimen: BEAM Mobilization regimen: Plerixafor AND Neupogen Stem cell source: Apharesis CD34 cell dose (x10e6/kg): Date of transplant: 02/04/201706/2016-10/2016 - Received a total of 3 cycles of ICE. He has been compliant with therapy. Continued to take oxycodone for back pain. PET scan shows complete metabolic response. Echocardiogram notable for mildly depressed ejection fraction. 06/2016 - Cervical lymph node biopsy: - Recurrent nodular lymphocyte-predominan t Hodgkin lymphoma. 05/2016 - PET/CT: Extensive hypermetabolic lymphadenopathy, splenic and skeletal involvement. 04/2016 - Continued back pain despite XRT. Pruritus has returned. Enlarging left groin lymph nod (more content not included)... Normal [facility] CNNURSEon 12-09-2023 CNNURSE Nurse Visit (PSYCA2) DEYVIJOSELYN ([id number]) 1980 M Date Time Provider Department 12/09/23 GERALD SAPP PSYCA2 During your visit today, we recorded the following information about you: Gerald Sapp RN 12/09/2023 2:47 PM Signed Palliative Medicine Care Coordination NEW PATIENT NOTE Patient identified by name and date of . YES Spoke with: patient Nurse introduced self and role of Machine Tracer in Palliative Medicine. Office contact sheet provided with office and on-call phone numbers. Reviewed on-call process. Nurse educated patient on medication refill process. Nurse encouraged patient to call with any questions/concerns/sy mptom related issues. Discussed: met and greeted pt with SW present. Provided contact sheet as well as emergency numbers for crisis/suicide hotlines. Advised pt that SW will reach out to pt with list of local psychiatry resources. Pt reports he is currently under treatment at a residential rehab facility in [facility], but not currently seeing a psychiatry provider as psychiatry services not offered at treatment facility. Encouraged pt to call office with any questions or any need for assistance. All questions/concerns addressed: Yes Gerald Sapp RN Allergies As of Date: 12/09/2023 Noted Allergy Reaction BACTRIM (SULFAMETHOXAZOLE-TRI METH*05/12/2016 4 - Hives Comments: Itching Patient denied any reaction history or allergy to Bactrim or Sulfa during history obtained on 07/14/18; please see Allergy consult note from that date for further details. AMOXICILLIN 07/12/2018 7 - Swelling Comments: Facial swelling; Negative penicillin skin testing on 07/14/18. Please see allergy consult note from that date. recommend test dosing PCN prior to administration. Date Reviewed: 09/11/2023 Reviewed by: Simran Nelson APRN.WAIST FITTER - Fully Assessed Primary Visit Diagnosis:Encounter for palliative care [Z51.5] Prescriptions as of 12/09/2023 - buprenorphine (BUTRANS) 5 mcg/hour Apply 1 Patch as directed one time a week for 30 days. - senna-docusate (SENNA-S) 8.6-50 mg per tablet Take 1 tablet by mouth once daily. - OLANZapine (ZYPREXA) 5 mg tablet Take 1 tablet by mouth daily at bedtime. - ibuprofen (MOTRIN) 800 mg tablet Take 800 mg by mouth. Meds Comments as of 11/05/2017: Patient states Dr. Ceballos in the cancer center at [facility] discontinued all of his medication Duglas A Problem List As Of Date 12/09/2023 Noted Resolved Hodgkin's disease (HCC) [C81.90] 11/18/2016 02/11/2017 Blood clot due to device, implant, or graft [T8*11/18/2016 Cancer associated pain [G89.3] 11/18/2016 Anxiety and depression [F41.9, F32.A] 11/18/2016 Moderate smoker (20 or less per day) [F17.210] 11/18/2016 Hodgkin lymphoma (HCC) [C81.90] 11/18/2016 Personal history of diseases of blood and blood*11/18/2016 Attention deficit hyperactivity disorder (ADHD)*12/29/2016 Depression (emotion) [F32.A] 12/29/2016 Cannabis abuse, daily use [F12.10] 12/29/2016 Cigarette smoker one half pack a day or less [F*12/29/2016 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 Chemotherapy induced nausea and vomiting [R11.2*01/28/2017 02/13/2017 Pancytopenia due to antineoplastic chemotherapy*01/29/20 17 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, *01/28/2017 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]01/28/2017 Central line complication [T82.9XXA] 01/31/2017 02/09/2017 Chronic systolic CHF (congestive heart failure)*02/09/2017 Acute esophagitis [K20.90] 02/09/2017 02/13/2017 Chronic back pain [M54.9, G89.29] 02/09/2017 Mild acid reflux [K21.9] 02/11/2017 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 Severe sepsis (HCC) [A41.9, R65.20] 07/12/2018 07/22/2018 HFrEF (heart failure with reduced ejection frac*07/12/2018 Acute thrombosis of right axillary vein (HCC) [*07/12/2018 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)*07/12/2018 LUIZA (acute kidney injury) (HCC) [N17.9] 07/12/2018 07/14/2018 Pleural effusion on right [J90] 07/12/2018 07/22/2018 Nicotine use disorder, F17.2 [F17.200] 07/13/2018 Bacteremia [R78.81] 07/13/2018 07/22/2018 Malnutrition of moderate degree (HCC) [E44.0] 07/14/2018 Empyema (HCC) [J86.9] 07/14/2018 Opioid contract exists [Z79.891] 09/11/2023 Encounter Status:Closed by GERALD SAPP on 12/09/23 [facility] CNOVon 12-09-2023 CNOV Office Visit (PSYCA2 ) JOSELYN CARNES ([id number]) 1980 M Date Time Provider Department 12/09/23 10:00 AM TOBI PLATA PSYCA2 During your visit today, we recorded the following information about you: Temperature Pulse Respiration Blood pressure 98.3 degrees 84/minute 20/minute 131/82 Weight 98 kg Tobi Plata MD 12/09/2023 12:03 PM Signed [facility] Division of Psycho-Oncology Psychiatry Outpatient Visit- New Patient Encounter In-Person Visit Joselyn Carnes 1980 [id number] Visit date: 12/09/2023 . Visit # 1 Established care: 12/09/2023 Referral source: Tobi Plata PCP: No primary care provider on file. Oncologist: Rich Hill MD ASSESSMENT: Joselyn Carnes is a 43 year old male with PMH of Hodgkin's Lymphoma diagnosed in June 2015, s/p ASCT in Jan 2017, lost in follow up till 2018, then lost in follow up again till October 2022 for recurring neck and groin pain, with PET indicating recurrence, reported PPH of substance use disorder, who is referred to psycho-oncology service at [facility] by [facility] for Auditory Hallucinations, ADHD. Patient presented to [facility] psychiatry with concerns for auditory hallucination and generalized homicidal ideation (not towards a specific person). Both concerns appear to be at baseline and well-managed by his coping (staying away from noisy environment). He has not taken Abilify (in his chart) for months, and did not identify any medication to be particularly helpful in the past. Cocaine use preceded auditory hallucination, however AH continued in the absence of cocaine use, reportedly over the past 2 months since he started living at residential place [place] He denies depressed mood, anxiety or current suicidal ideation. He does not have access to guns. He is open to establishing care with psychiatry in the community where he has less barriers to care. Reports adequate support from family. Most recent UDS on 10/19/2023 lomax negative. Safety Screening: A safety assessment was completed. Risk factors include: age, male gender, history of self-injury, prior psychiatric hospitalization, and history of violence. Based on this assessment, the patient does not pose an acute risk of harm above their chronically elevated risk. These risks are mitigated by the following protective factors: no current thoughts of suicide, no current thoughts of self-harm, supportive friends and/or family, stable housing, lack of access to lethal means, engagement in care, and now in residential treatment . DIAGNOSIS: (F19.959) Psychoactive substance-induced psychosis (HCC) (primary encounter diagnosis) (F14.21) Cocaine use disorder, severe, in early remission (HCC) (F12.91) Marijuana use disorder in remission (R45.850) Homicidal ideation PLAN: -No indication for psychiatric hospitalization at this time. -I discussed with the patient that his psychosis is most likely related to substance use disorders and likely requires long-term psychiatric management, preferably at a location that is near to where he lives to decrease barriers to access to care (had to cancel appointment with psychiatry multiple times due to transportation issues and had history of no-show) and crisis intervention. Patient expressed understanding and is interested to explore options in the community. Patient met lymphoma social work associate Yair at the end of today's visit who will provide resources for community psychiatry. -Positive reinforcement on staying abstinent from cocaine and marijuana -Letter provided by RN to prove today's visit -I personally called [facility] rehab at [place] at [phone]. Automated voice message told me the facility is closed on Thursday. I did not get to speak with anyone and left and a voice message -Follow-up as needed. Of note this is not a proper referral to [facility] psychiatry as patient is not in active cancer treatment. [facility] psychiatry is happy to work as a gis consultant for cancer related psychiatric concerns after patient establishes care with community psychiatry that can focus on chronic psychotic disorder that is related to substance use. -I discussed safety planning and crisis management. Patient expresses understanding he will go to ER if auditory hallucination worsens and urges to harm others become stronger, more irresistible or specific towards an individual. -The patient was provided with written information on how to reach the clinic between visits as well as a reminder to call 911 or go to the nearest emergency department if an urgent/safety (such as suicidal ideation/plan) issue arises. Note: This dictation was partially generated using [employer] voice recognition software. While every effort was made to correct voice recognition errors, please kindly be aware that some grammatical or spelling errors may o (more content not included)... Normal [facility] Sherlyn 12-03-2023 ALEXANDRE Telephone (NARCISA) JOSELYN CARNES ([id number]) 1980 M Date Time Provider Department 12/03/23 CASSIE GREENE During your visit today, we recorded the following information about you: Cassie Greene RN 12/03/2023 4:29 PM Signed Pt called and states he would like to set up an appointment with Dr. Hill. Last seen 08/17/23, Nhung wanted referred to ENT. I am not sure he did that. He was supposed to see palliative on 10/09/23 and was a NS. Has no follow up scheduled with NHUNG. PSS: Can you please call and schedule. Thanks SANDRA Morin [facility] 12/04/2023 8:33 AM Signed Sent the information to Dilan Ball, then I will call the Patient to schedule. ABRAN Watson [facility] 12/07/2023 8:07 AM Signed I called the Patient to give him, his appt date and time of: 12/10 1045 am : Dr. Islas But unfortunantly, he did not answer and does not have a voicemail set up. I will try calling the Patient again in a few hours. ABRAN Watson [facility] 12/07/2023 1:20 PM Signed I spoke with the Patient and have him scheduled to see Dr. Islas on 12/18/23 at 230 pm. ABRAN Watson Allergies As of Date: 12/03/2023 Noted Allergy Reaction BACTRIM (SULFAMETHOXAZOLE-TRI METH*05/12/2016 4 - Hives Comments: Itching Patient denied any reaction history or allergy to Bactrim or Sulfa during history obtained on 07/14/18; please see Allergy consult note from that date for further details. AMOXICILLIN 07/12/2018 7 - Swelling Comments: Facial swelling; Negative penicillin skin testing on 07/14/18. Please see allergy consult note from that date. recommend test dosing PCN prior to administration. Date Reviewed: 09/11/2023 Reviewed by: Simran Nelson, DANA.WAIST FITTER - Fully Assessed Prescriptions as of 12/08/2023 - buprenorphine (BUTRANS) 5 mcg/hour Apply 1 Patch as directed one time a week for 30 days. - senna-docusate (SENNA-S) 8.6-50 mg per tablet Take 1 tablet by mouth once daily. - OLANZapine (ZYPREXA) 5 mg tablet Take 1 tablet by mouth daily at bedtime. - ARIPiprazole (ABILIFY) 10 mg tablet Take 10 mg by mouth. - ibuprofen (MOTRIN) 800 mg tablet Take 800 mg by mouth. Meds Comments as of 11/05/2017: Patient states Dr. Ceballos in the cancer center at [facility] discontinued all of his medication NubiaElizabeth RMA Problem List As Of Date 12/03/2023 Noted Resolved Hodgkin's disease (HCC) [C81.90] 11/18/2016 02/11/2017 Blood clot due to device, implant, or graft [T8*11/18/2016 Cancer associated pain [G89.3] 11/18/2016 Anxiety and depression [F41.9, F32.A] 11/18/2016 Moderate smoker (20 or less per day) [F17.210] 11/18/2016 Hodgkin lymphoma (HCC) [C81.90] 11/18/2016 Personal history of diseases of blood and blood*11/18/2016 Attention deficit hyperactivity disorder (ADHD)*12/29/2016 Depression (emotion) [F32.A] 12/29/2016 Cannabis abuse, daily use [F12.10] 12/29/2016 Cigarette smoker one half pack a day or less [F*12/29/2016 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 Chemotherapy induced nausea and vomiting [R11.2*01/28/2017 02/13/2017 Pancytopenia due to antineoplastic chemotherapy*01/29/20 17 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, *01/28/2017 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]01/28/2017 Central line complication [T82.9XXA] 01/31/2017 02/09/2017 Chronic systolic CHF (congestive heart failure)*02/09/2017 Acute esophagitis [K20.90] 02/09/2017 02/13/2017 Chronic back pain [M54.9, G89.29] 02/09/2017 Mild acid reflux [K21.9] 02/11/2017 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 Severe sepsis (HCC) [A41.9, R65.20] 07/12/2018 07/22/2018 HFrEF (heart failure with reduced ejection frac*07/12/2018 Acute thrombosis of right axillary vein (HCC) [*07/12/2018 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 DRUG SCREEN, URINEon 024 AMPHETAMINE/METHAMP Negative Normal NEG [facility] Comment on above: Result Comment: AMPH /METH screening cut off = 1000 ng/mL Performed By: #### D SANCHEZ #### [facility] ([id number]) [address], [address] [place] [address] BARBITURATES Negative Normal NEG [facility] Comment on above: Result Comment: Marilyn iturates screening cut off value = 200 ng/mL Performed By: #### D SANCHEZ #### [facility] ([id number]) [address], [address] [place] [address] BENZODIAZEPINES Negative Normal NEG [facility] Comment on above: Result Comment: Stas odiazepines screening cut off value = 200 ng/mL Performed By: #### D SANCHEZ #### [facility] ([id number]) [address], [address] [place] [address] CANNABINOIDS Negative Normal NEG [facility] Comment on above: Result Comment: Doyle abinoids/THC screening cut off value = 50 ng/mL Performed By: #### D SANCHEZ #### [facility] ([id number]) [address], [address] [place] [address] COCAINE METABOLITE Negative Normal NEG [facility] Comment on above: Result Comment: Coca ine screening cut off value = 300 ng/mL Performed By: #### D SANCHEZ #### [facility] ([id number]) [address], [address] [place] [address] ECSTASY Negative Normal [facility] Comment on above: Result Comment: Ecst asy screening cut off value = 500 ng/mL This report is intended for use in clinical monitoring or management of patients. Performed By: #### D SANCHEZ #### [facility] ([id number]) [address], [address] [place] [address] METHADONE Negative Normal [facility] Comment on above: Result Comment: Meth adone screening cut off value = 300 ng/mL. Performed By: #### D SANCHEZ #### [facility] ([id number]) [address], [address] [place] [address] OPIATES Negative Normal [facility] Comment on above: Result Comment: Opia jethro screening cut off value = 300 ng/mL NOTE: This test is used for the detection of codeine, hydrocodone (>1000 ng/mL), morphine and hydromorphone (>900 ng/mL) in urine. Performed By: #### D SANCHEZ #### [facility] ([id number]) [address], [address] [place] [address] OXYCODONE Negative Normal [facility] Comment on above: Result Comment: Oxyc odone screening cut off value = 300 ng/mL NOTE: This test is used for the detection of oxycodone and oxymorphone in urine. Performed By: #### D SANCHEZ #### [facility] ([id number]) [address], [address] [place] [address] PHENCYCLIDINE Negative Normal [facility] Comment on above: Result Comment: Phen cyclidine screening cut off value = 25 ng/mL Performed By: #### D SANCHEZ #### [facility] ([id number]) [address] [place] [address], [address] [place] [address] Drug Screen, Urineon 024 Amphetamines Screen method >1000 ng/mL Ql (U) Negative Negative^N [facility] Comment on above: AMPH/METH screening cut off = 1000 ng/mL Barbiturates Screen Ql (U) Negative Negative^N [facility] Comment on above: Barbiturates screeni ng cut off value = 200 ng/mL Benzodiazepines Ql (U) Negative Negat diana^N [facility] Comment on above: Benzodiazepines scre ening cut off value = 200 ng/mL Cocaine Ql (U) Negative Negative^N [facility] Comment on above: Cocaine screening cu t off value = 300 ng/mL Methadone Screen Ql (U) Negative Nega tive^N [facility] Comment on above: Methadone screening cut off value = 300 ng/mL. Methylenedioxymethamphet amine Screen Ql (U) Negative Negative^N [facility] Comment on above: Ecstasy screening cu t off value = 500 ng/mL This report is intended for use in clinical monitoring or management of patients. Opiates Screen Ql (U) Negative Negati ve^N [facility] Comment on above: Opiates screening cu t off value = 300 ng/mL NOTE: This test is used for the detection of codeine, hydrocodone (>1000 ng/mL), morphine and hydromorphone (>900 ng/mL) in urine. oxyCODONE Ql (U) Negative Negative^N [facility] Comment on above: Oxycodone screening cut off value = 300 ng/mL NOTE: This test is used for the detection of oxycodone and oxymorphone in urine. Phencyclidine Screen method >25 ng/mL Ql (U) Negative Negative^N [facility] Comment on above: Phencyclidine screen ing cut off value = 25 ng/mL Tetrahydrocannabinol Screen method >50 ng/mL Ql (U) Negative Negative^N [facility] Comment on above: Cannabinoids/THC scr eening cut off value = 50 ng/mL [facility] CNCOon 10-09-2023 CNCO Letter Text Normal [facility] CNOVon 10-09-2023 CNOV Office Visit ([facility] ) JOSELYN CARNES ([id number]) 1980 M Date Time Provider Department 10/09/23 10:00 AM [facility] During your visit today, we recorded the following information about you: Simran Nelson APRN.CNP 10/09/2023 12:44 PM Signed No Show Allergies As of Date: 10/09/2023 Noted Allergy Reaction BACTRIM (SULFAMETHOXAZOLE-TRI METH*05/12/2016 4 - Hives Comments: Itching Patient denied any reaction history or allergy to Bactrim or Sulfa during history obtained on 07/14/18; please see Allergy consult note from that date for further details. AMOXICILLIN 07/12/2018 7 - Swelling Comments: Facial swelling; Negative penicillin skin testing on 07/14/18. Please see allergy consult note from that date. recommend test dosing PCN prior to administration. Date Reviewed: 09/11/2023 Reviewed by: Simran Nelson APRN.WAIST FITTER - Fully Assessed Primary Visit Diagnosis:NO SHOW Prescriptions as of 10/09/2023 - buprenorphine (BUTRANS) 5 mcg/hour Apply 1 Patch as directed one time a week for 30 days. - senna-docusate (SENNA-S) 8.6-50 mg per tablet Take 1 tablet by mouth once daily. - OLANZapine (ZYPREXA) 5 mg tablet Take 1 tablet by mouth daily at bedtime. - ARIPiprazole (ABILIFY) 10 mg tablet Take 10 mg by mouth. - ibuprofen (MOTRIN) 800 mg tablet Take 800 mg by mouth. Meds Comments as of 11/05/2017: Patient states Dr. Ceballos in the cancer center at [facility] discontinued all of his medication Duglas [facility] Problem List As Of Date 10/09/2023 Noted Resolved Hodgkin's disease (HCC) [C81.90] 11/18/2016 02/11/2017 Blood clot due to device, implant, or graft [T8*11/18/2016 Cancer associated pain [G89.3] 11/18/2016 Anxiety and depression [F41.9, F32.A] 11/18/2016 Moderate smoker (20 or less per day) [F17.210] 11/18/2016 Hodgkin lymphoma (HCC) [C81.90] 11/18/2016 Personal history of diseases of blood and blood*11/18/2016 Attention deficit hyperactivity disorder (ADHD)*12/29/2016 Depression (emotion) [F32.A] 12/29/2016 Cannabis abuse, daily use [F12.10] 12/29/2016 Cigarette smoker one half pack a day or less [F*12/29/2016 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 Chemotherapy induced nausea and vomiting [R11.2*01/28/2017 02/13/2017 Pancytopenia due to antineoplastic chemotherapy*01/29/20 17 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, *01/28/2017 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]01/28/2017 Central line complication [T82.9XXA] 01/31/2017 02/09/2017 Chronic systolic CHF (congestive heart failure)*02/09/2017 Acute esophagitis [K20.90] 02/09/2017 02/13/2017 Chronic back pain [M54.9, G89.29] 02/09/2017 Mild acid reflux [K21.9] 02/11/2017 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 Severe sepsis (HCC) [A41.9, R65.20] 07/12/2018 07/22/2018 HFrEF (heart failure with reduced ejection frac*07/12/2018 Acute thrombosis of right axillary vein (HCC) [*07/12/2018 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)*07/12/2018 LUIZA (acute kidney injury) (HCC) [N17.9] 07/12/2018 07/14/2018 Pleural effusion on right [J90] 07/12/2018 07/22/2018 Nicotine use disorder, F17.2 [F17.200] 07/13/2018 Bacteremia [R78.81] 07/13/2018 07/22/2018 Malnutrition of moderate degree (HCC) [E44.0] 07/14/2018 Empyema (HCC) [J86.9] 07/14/2018 Opioid contract exists [Z79.891] 09/11/2023 Encounter Status:Closed by SIMRAN NELSON on 10/09/23 [facility] Sherlyn 09-29-2023 CNPN Telephone (PALMED) JOSELYN CARNES ([id number]) 1980 M Date Time Provider Department 09/29/23 ANA CAMERON During your visit today, we recorded the following information about you: Kevin Monahan 09/29/2023 2:56 PM Signed Referral to [facility] - psychiatry. Patient previously no showed. Called today to reschedule, but patient's voicemail is not set up. Will continue to follow up. Kevin Monahan September 29, 2023 Ana Cameron 10/06/2023 10:55 AM Signed Second attempt to reach patient. Voicemail still not set up. Kevin Zamorano 10/09/2023 10:28 AM Signed Thank you for providing a referral to [facility]. We were unable to reach the patient to confirm an appointment. Please let us know if we can assist in the future. Called to schedule, but patient's phone goes straight to voicemail and the voicemail isn't set up yet. Sent letter to patient's MyChart with information on how to call back and reschedule. Kevin Monahan October 09, 2023 Allergies As of Date: 09/29/2023 Noted Allergy Reaction BACTRIM (SULFAMETHOXAZOLE-TRI METH*05/12/2016 4 - Hives Comments: Itching Patient denied any reaction history or allergy to Bactrim or Sulfa during history obtained on 07/14/18; please see Allergy consult note from that date for further details. AMOXICILLIN 07/12/2018 7 - Swelling Comments: Facial swelling; Negative penicillin skin testing on 07/14/18. Please see allergy consult note from that date. recommend test dosing PCN prior to administration. Date Reviewed: 09/11/2023 Reviewed by: Simran Nelson APRN.WAIST FITTER - Fully Assessed Reason for Visit: Initial Consult [665] Cmt: Patient Declined Referral to [facility] Prescriptions as of 10/09/2023 - buprenorphine (BUTRANS) 5 mcg/hour Apply 1 Patch as directed one time a week for 30 days. - senna-docusate (SENNA-S) 8.6-50 mg per tablet Take 1 tablet by mouth once daily. - OLANZapine (ZYPREXA) 5 mg tablet Take 1 tablet by mouth daily at bedtime. - ARIPiprazole (ABILIFY) 10 mg tablet Take 10 mg by mouth. - ibuprofen (MOTRIN) 800 mg tablet Take 800 mg by mouth. Meds Comments as of 11/05/2017: Patient states Dr. Ceballos in the cancer center at [facility] discontinued all of his medication RKrishna RMA Problem List As Of Date 09/29/2023 Noted Resolved Hodgkin's disease (HCC) [C81.90] 11/18/2016 02/11/2017 Blood clot due to device, implant, or graft [T8*11/18/2016 Cancer associated pain [G89.3] 11/18/2016 Anxiety and depression [F41.9, F32.A] 11/18/2016 Moderate smoker (20 or less per day) [F17.210] 11/18/2016 Hodgkin lymphoma (HCC) [C81.90] 11/18/2016 Personal history of diseases of blood and blood*11/18/2016 Attention deficit hyperactivity disorder (ADHD)*12/29/2016 Depression (emotion) [F32.A] 12/29/2016 Cannabis abuse, daily use [F12.10] 12/29/2016 Cigarette smoker one half pack a day or less [F*12/29/2016 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 Chemotherapy induced nausea and vomiting [R11.2*01/28/2017 02/13/2017 Pancytopenia due to antineoplastic chemotherapy*01/29/20 17 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, *01/28/2017 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]01/28/2017 Central line complication [T82.9XXA] 01/31/2017 02/09/2017 Chronic systolic CHF (congestive heart failure)*02/09/2017 Acute esophagitis [K20.90] 02/09/2017 02/13/2017 Chronic back pain [M54.9, G89.29] 02/09/2017 Mild acid reflux [K21.9] 02/11/2017 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 Severe sepsis (HCC) [A41.9, R65.20] 07/12/2018 07/22/2018 HFrEF (heart failure with reduced ejection frac*07/12/2018 Acute thrombosis of right axillary vein (HCC) [*07/12/2018 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 HBV core Ab Ql (S)on 024 Interpretation and review of laboratory results Normal [facility] HBV surface Ab Ql (S)on 07-17 HBV surface Ab Qn (S) mIU/mL [facility] Comment on above: <8 mIU/mL: No serolo gical evidence of immunity to Hepatitis B Virus. >/= 8 to <12 mIU/mL: No serological evidence of immunity to Hepatitis B Virus. >/= 12 mIU/mL: Consistent with serological evidence of immunity to Hepatitis B Virus. [facility] HBV surface Ag Ql (S)on 07-17 Interpretation and review of laboratory results Normal [facility] HCV Ab Ql (S)on 08-13-2023 Interpretation and review of laboratory results Normal [facility] HEP B CORE AB TOTALon 2023 HBV core Ab Ql (S) Negative Negative [facility] Comment on above: No evidence of curre nt or past infection with Hepatitis B virus. Should recent infection be suspected, repeat testing may be considered 3-4 weeks after this draw. HEP B SURF ABon 08-13-2023 HBV surface Ab Ql (S) Negative [facility] Comment on above: No serological evide nce of immunity to Hepatitis B Virus. HEP B SURF AG SCRNon 024 HBV surface Ag Ql (S) Negative Negative [facility] HEPATITIS C ANTIBODY IA WITH CONFIRMATIONon 08-13-2023 HCV Ab Ql (S) Negative Negative [facility] Comment on above: The result suggests no evidence of active infection with Hepatitis C virus. Should recent infection be suspected, repeat testing may be considered 4-6 weeks after this draw. CBC W Auto Differential pane l (Bld)on 08-12-2023 Basophils (Bld) [#/Vol] [facility] Basophils/100 WBC (Bld) 0.4 % [facility] Differential cell count method Nom (Bld) Auto [facility] Eosinophils (Bld) [#/Vol] 0.10 10*3/uL [facility] Eosinophils/100 WBC (Bld) 2.1 % [facility] Erythrocyte distribution width (RBC) [Ratio] 12.6 % 11.5 - 15.0 % [facility] Hematocrit (Bld) [Volume fraction] 43.2 % 39.0 - 51.0 % [facility] Hemoglobin (Bld) [Mass/Vol] 14.8 g/dL 13.0 - 17.0 g/dL [facility] Immature granulocytes (Bld) [#/Vol] [facility] Immature granulocytes/100 WBC (Bld) 0.2 % [facility] Lymphocytes (Bld) [#/Vol] 1.54 10*3/uL [facility] Lymphocytes/100 WBC (Bld) 32.8 % [facility] MCH (RBC) [Entitic mass] 30.5 pg 26. 0 - 34.0 pg [facility] MCHC (RBC) [Mass/Vol] 34.3 g/dL 30.5 - 36.0 g/dL [facility] MCV (RBC) [Entitic vol] 88.9 fL 80.0 - 100.0 fL [facility] Monocytes (Bld) [#/Vol] 0.40 10*3/uL [facility] Monocytes/100 WBC (Bld) 8.5 % [facility] Neutrophils (Bld) [#/Vol] 2.62 10*3/uL [facility] Neutrophils/100 WBC (Bld) 56.0 % [facility] Nucleated RBC (Bld) [#/Vol] NINF [facility] Nucleated RBC/100 WBC (Bld) [Ratio] 0.0 % /100 WBC [facility] Platelet mean volume (Bld) [Entitic vol] 9.1 fL 9.0 - 12.7 fL [facility] Platelets (Bld) [#/Vol] 223 10*3/uL [facility] RBC (Bld) [#/Vol] 4.86 10*6/uL 4.20 - 6.00 m/uL [facility] WBC (Bld) [#/Vol] 4.69 10*3/uL [facility] CNPZulema [facility] JOSELYN CARNES ([id number]) 1980 M Date Time Provider Department 08/12/23 MARIALUISA PORTILLO During your visit today, we recorded the following information about you: Marialuisa Portillo RN 08/13/2023 8:16 AM Addendum Prior Authorization Documentation Prior authorization requested for: MEDICATION Butran 5 mcg TD patch Submitted via Cover [employer] Insurance Company Name: [employer] and Pharmacy Name: [facility] Authorization approval #: [id number]. [place]# [id number] Dates of Approval: from 08/12/2023 to 11/08/2024 Patient Assistance Needed: Yes, patient updated. Time Spent 25 Marialuisa Portillo RN August 12, 2023 Allergies As of Date: 08/12/2023 Noted Allergy Reaction BACTRIM (SULFAMETHOXAZOLE-TRI METH*05/12/2016 4 - Hives Comments: Itching Patient denied any reaction history or allergy to Bactrim or Sulfa during history obtained on 07/14/18; please see Allergy consult note from that date for further details. AMOXICILLIN 07/12/2018 7 - Swelling Comments: Facial swelling; Negative penicillin skin testing on 07/14/18. Please see allergy consult note from that date. recommend test dosing PCN prior to administration. Date Reviewed: 08/11/2023 Reviewed by: Simran Nelson APRN.WAIST FITTER - Fully Assessed Reason for Visit: Insurance Authorization [[id number]] Prescriptions as of 08/13/2023 - buprenorphine (BUTRANS) 5 mcg/hour Apply 1 Patch as directed one time a week for 30 days. - senna-docusate (SENNA-S) 8.6-50 mg per tablet Take 1 tablet by mouth once daily. - OLANZapine (ZYPREXA) 5 mg tablet Take 1 tablet by mouth daily at bedtime. - ARIPiprazole (ABILIFY) 10 mg tablet Take 10 mg by mouth. - ibuprofen (MOTRIN) 800 mg tablet Take 800 mg by mouth. Meds Comments as of 11/05/2017: Patient states Dr. Ceballos in the cancer center at [facility] discontinued all of his medication [place]las A Problem List As Of Date 08/12/2023 Noted Resolved Hodgkin's disease (HCC) [C81.90] 11/18/2016 02/11/2017 Blood clot due to device, implant, or graft [T8*11/18/2016 Cancer associated pain [G89.3] 11/18/2016 Anxiety and depression [F41.9, F32.A] 11/18/2016 Moderate smoker (20 or less per day) [F17.210] 11/18/2016 Hodgkin lymphoma (HCC) [C81.90] 11/18/2016 Personal history of diseases of blood and blood*11/18/2016 Attention deficit hyperactivity disorder (ADHD)*12/29/2016 Depression (emotion) [F32.A] 12/29/2016 Cannabis abuse, daily use [F12.10] 12/29/2016 Cigarette smoker one half pack a day or less [F*12/29/2016 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 Chemotherapy induced nausea and vomiting [R11.2*01/28/2017 02/13/2017 Pancytopenia due to antineoplastic chemotherapy*01/29/20 17 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, *01/28/2017 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]01/28/2017 Central line complication [T82.9XXA] 01/31/2017 02/09/2017 Chronic systolic CHF (congestive heart failure)*02/09/2017 Acute esophagitis [K20.90] 02/09/2017 02/13/2017 Chronic back pain [M54.9, G89.29] 02/09/2017 Mild acid reflux [K21.9] 02/11/2017 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 Severe sepsis (HCC) [A41.9, R65.20] 07/12/2018 07/22/2018 HFrEF (heart failure with reduced ejection frac*07/12/2018 Acute thrombosis of right axillary vein (HCC) [*07/12/2018 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)*07/12/2018 LUIZA (acute kidney injury) (HCC) [N17.9] 07/12/2018 07/14/2018 Pleural effusion on right [J90] 07/12/2018 07/22/2018 Nicotine use disorder, F17.2 [F17.200] 07/13/2018 Bacteremia [R78.81] 07/13/2018 07/22/2018 Malnutrition of moderate degree (HCC) [E44.0] 07/14/2018 Empyema (HCC) [J86.9] 07/14/2018 Encounter Status:Closed by MARIALUISA PORTILLO on 08/12/23 [facility] Comprehensive metabolic 2000 panelon 08-12-2023 Albumin [Mass/Vol] 5.0 g/dL High 3.9 - 4.9 g/dL [facility] ALP [Catalytic activity/Vol] 96 U/L 38 - 113 U/L [facility] ALT [Catalytic activity/Vol] 100 U/L High 10 - 54 U/L [facility] Anion gap [Moles/Vol] 10 mmol/L 9 - 18 mmol/L [facility] AST [Catalytic activity/Vol] 49 U/L High 14 - 40 U/L [facility] Bilirubin [Mass/Vol] 0.4 mg/dL 0.2 - 1 .3 mg/dL [facility] Calcium [Mass/Vol] 9.9 mg/dL 8.5 - 10. 2 mg/dL [facility] Chloride [Moles/Vol] 103 mmol/L 97 - 10 5 mmol/L [facility] CO2 [Moles/Vol] 26 mmol/L 22 - 30 mmol/L [facility] Creatinine [Mass/Vol] 1.14 mg/dL 0.73 - 1.22 mg/dL [facility] GFR/1.73 sq M.predicted among non-blacks MDRD (S/P/Bld) [Vol rate/Area] 81 mL/min/{1.73_m2} - PINF [facility] Comment on above: Estimated Glomerular Filtration Rate (eGFR) is calculated using the 2020 CKD-EPI creatinine equation. This equation utilizes serum creatinine, sex, and age as parameters. The creatinine assay has traceable calibration to isotope dilution-mass spectrometry. Refer to KDIGO guidelines for clinical interpretation. In patients with unstable renal function, e.g. those with acute kidney injury, the eGFR may not accurately reflect actual GFR. Glucose [Mass/Vol] 87 mg/dL 74 - 99 mg/dL [facility] Comment on above: The [place] Diabete s Association (ADA) provides guidance for cutoff values [...] Standards of Medical Care in Diabetes 2016, [place] Diabetes Association. Diabetes Care. 2016.39(Suppl 1). Interpretation and review of laboratory results Abnormal [facility] Potassium [Moles/Vol] 4.2 mmol/L 3.7 - 5.1 mmol/L [facility] Protein [Mass/Vol] 7.4 g/dL 6.3 - 8.0 g/dL [facility] Sodium [Moles/Vol] 139 mmol/L 136 - 144 mmol/L [facility] Urea nitrogen [Mass/Vol] 21 mg/dL 9 - 24 mg/dL [facility] GLUCOSE, BLOOD (POC)on 08-12 Glucose [Mass/Vol] 80 mg/dL 74 - 99 mg/dL [facility] Comment on above: Location:[facility], [address] [place] [address] Dr. [place], [place], [facility] The Accu-Chek Inform II glucose meter has not been approved for testing on patients receiving intensive medical intervention or therapy and results from this point of care glucose test should not be used for patient management decisions in these cases. Inaccurate results may also occur from other interfering factors, such as N-acetylcysteine (blood concentrations of greater than 5mg/dL), galactose, extremes of hematocrit (<10 or >65), or high doses of ascorbic acid (vitamin C) greater than 3mg/dL. Consider alternate testing mechanisms (e.g. core lab, blood gas instrument) in the above situations. [facility] LD LACTATE DEHYDROon 024 LDH [Catalytic activity/Vol] 182 U/L 135 - 225 U/L [facility] No Panel InformationOrdered By: Bina Aggarwal on 08-12-2023 Interpretation and review of laboratory results Normal [facility] PET+CT Whole body Bone W 18F -NaF Iris 08-12-2023 IMPRESSION: HEAD/NECK: * Diffuse uptake in the bilateral tonsillar regions. * Mildly hypermetabolic bilateral cervical lymph nodes. CHEST: * No FDG avid neoplastic process. ABDOMEN/PELVIS: * No FDG avid neoplastic process. MUSCULOSKELETAL: * No FDG avid neoplastic process. Deauville criteria score: 4 Transcribe Date/Time: Aug 12 2023 7:45P Dictated by: TANGELA HERR MD This examination was interpreted and the report reviewed and electronically signed by: TANGELA HERR MD on Aug 12 2023 8:08PM EST Thank you for allowing us to participate in the care of your patient. Should there be any questions regarding this interpretation, please call [phone]. If you are unable to reach us at the number above, please feel free to contact [facility] at [phone]. 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 INDICATION: Subsequent treatment strategy. TECHNIQUE: Radiotracer was administered IV followed about 60 minutes later by PET imaging from TOP OF HEAD TO BOTTOM OF FOOT.. Free breathing, low dose CT of the same body region was acquired without IV contrast for attenuation correction and anatomic localization. * CT Dose-Length Product (DLP): 355 mGy*cm * CT Dose Reduction Employed: Yes * Blood glucose (mg/dL): 80 * Dose (mCi): 10.8 * Radiotracer: F18-FDG COMPARISON: PET/CT 11/07/2022 RESULTS: REFERENCES: SUV reference values: * Blood pool (descending aorta) activity: SUVmax 2.5 * Background liver activity: SUVmax 3.5; SUVmean 2.3 Benefits Director (topogram) images: No additional findings. Notes and limitations: * Standardized uptake values (SUVs) are normalized to patient body weight and indicate the highest activity concentration (SUVmax) at a given site of pathology but can vary due to multiple variables and are not absolute. * Physiologic/non-neopl astic uptake is common in the brain, extraocular muscles, oral cavity, tonsils, salivary glands, vocal cords, myocardium, liver, GI tract, urinary tract, and bone marrow among others. Certain regions and organ systems can have more intense physiologic activity, which could confound or obscure some pathology. * Unenhanced imaging is limited for the evaluation of some pathology and the acquired CT was not designed to produce, and cannot replace, diagnostic CT scan quality. HEAD AND NECK: Head (imaged): No abnormal uptake. Neck & Lymph Nodes: Diffuse uptake in the tonsillar regions. Mild activity bilateral cervical lymph nodes. For example right level 2 cervical lymph node 1.6 x 1.8 cm (max SUV 4.3, image 3/53). Left level 2 lymph node measures 0.8 x 1.2 cm (max SUV 3.8, image 3/51 Thyroid: No abnormal uptake. CHEST: Note: PET-CT is often not sensitive for pulmonary nodules less than 8 mm, if present these would be optimally followed with diagnostic chest CT. Lungs & Airways: No abnormal uptake. Pleura & Pericardium: No abnormal uptake. Cardiovascular: No abnormal uptake. Mediastinum & Lymph Nodes: No abnormal uptake. ABDOMEN AND PELVIS: Hepatobiliary: No abnormal uptake. Spleen: No abnormal uptake. Pancreas: No abnormal uptake. Adrenals: No abnormal uptake. Urinary Tract: No abnormal uptake. GI Tract: No abnormal uptake. Peritoneum: No abnormal uptake. Vasculature: No abnormal uptake. Retroperitoneum & Lymph Nodes: Few low activity inguinal lymph nodes for example right inguinal lymph node 0.9 cm (max SUV 2.3) likely reactive. Pelvis: No abnormal uptake. MUSCULOSKELETAL: Bones: No abnormal uptake. Torso & Soft Tissues: No abnormal uptake. Mild focus of activity in the left proximal foot is likely inflammatory. DIVISION OF RADIOLOGY Provider, 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 INDICATION: Subsequent treatment strategy. TECHNIQUE: Radiotracer was administered IV followed about 60 minutes later by PET imaging from TOP OF HEAD TO BOTTOM OF FOOT.. Free breathing, low dose CT of the same body region was acquired without IV contrast for attenuation correction and anatomic localization. * CT Dose-Length Product (DLP): 355 mGy*cm * CT Dose Reduction Employed: Yes * Blood glucose (mg/dL): 80 * Dose (mCi): 10.8 * Radiotracer: F18-FDG COMPARISON: PET/CT 11/07/2022 RESULTS: REFERENCES: SUV reference values: * Blood pool (descending aorta) activity: SUVmax 2.5 * Background liver activity: SUVmax 3.5; SUVmean 2.3 Benefits Director (topogram) images: No additional findings. Notes and limitations: * Standardized uptake values (SUVs) are normalized to patient body weight and indicate the highest activity concentration (SUVmax) at a given site of pathology but can vary due to multiple variables and are not absolute. * Physiologic/non-neopl astic uptake is common in the brain, extraocular muscles, oral cavity, tonsils, salivary glands, vocal cords, myocardium, liver, GI tract, urinary tract, and bone marrow among others. Certain regions and organ systems can have more intense physiologic activity, which could confound or obscure some pathology. * Unenhanced imaging is limited for the evaluation of some pathology and the acquired CT was not designed to produce, and cannot replace, diagnostic CT scan quality. HEAD AND NECK: Head (imaged): No abnormal uptake. Neck & Lymph Nodes: Diffuse uptake in the tonsillar regions. Mild activity bilateral cervical lymph nodes. For example right level 2 cervical lymph node 1.6 x 1.8 cm (max SUV 4.3, image 3/53). Left level 2 lymph node measures 0.8 x 1.2 cm (max SUV 3.8, image 3/51 Thyroid: No abnormal uptake. CHEST: Note: PET-CT is often not sensitive for pulmonary nodules less than 8 mm, if present these would be optimally followed with diagnostic chest CT. Lungs & Airways: No abnormal uptake. Pleura & Pericardium: No abnormal uptake. Cardiovascular: No abnormal uptake. Mediastinum & Lymph Nodes: No abnormal uptake. ABDOMEN AND PELVIS: Hepatobiliary: No abnormal uptake. Spleen: No abnormal uptake. Pancreas: No abnormal uptake. Adrenals: No abnormal uptake. Urinary Tract: No abnormal uptake. GI Tract: No abnormal uptake. Peritoneum: No abnormal uptake. Vasculature: No abnormal uptake. Retroperitoneum & Lymph Nodes: Few low activity inguinal lymph nodes for example right inguinal lymph node 0.9 cm (max SUV 2.3) likely reactive. Pelvis: No abnormal uptake. MUSCULOSKELETAL: Bones: No abnormal uptake. Torso & Soft Tissues: No abnormal uptake. Mild focus of activity in the left proximal foot is likely inflammatory. IMPRESSION IMPRESSION: HEAD/NECK: * Diffuse uptake in the bilateral tonsillar regions. * Mildly hypermetabolic bilateral cervical lymph nodes. CHEST: * No FDG avid neoplastic process. ABDOMEN/PELVIS: * No FDG avid neoplastic process. MUSCULOSKELETAL: * No FDG avid neoplastic process. Deauville criteria score: 4 Transcribe Date/Time: Aug 12 2023 7:45P Dictated by: TANGELA HERR MD This examination was interpreted and the report reviewed and electronically signed by: TANGELA HERR MD on Aug 12 2023 8:08PM EST Thank you for allowing us to participate in the care of your patient. Should there be any questions regarding this interpretation, please call [phone]. If you are unable to reach us at the number above, please feel free to contact [facility] at [phone]. [facility] Rad[facility] Study observation (narrative) Kirt ambriz [facility] PET+CT Whole body Bone W 18F -NaF IVOrdered By: Ccf Provider on 08-12-2023 [facility] URIC ACID BLOODOrdered By: Lina my White on 08-12-2023 Urate [Mass/Vol] 5.2 mg/dL 4.0 - 8.1 mg/dL [facility] [id number]-KrN-5mg 05-25-2021 SARS-CoV-2 (COVID-19) RNA DONELL+probe Ql (Unsp spec) Not detected Normal [facility] Comment on above: Result Comment: Rapid NAAT: The specimen is NEGATIVE for SARS-CoV-2, the novel coronavirus associated with COVID-19. The ID NOW COVID-19 assay is designed to detect the virus that causes COVID-19 in patients with signs and symptoms of infection who are suspected of COVID-19. An individual without symptoms of COVID-19 and who is not shedding SARS-CoV-2 virus would expect to have a negative (not detected) result in this assay. Negative results should be treated as presumptive and, if inconsistent with clinical signs and symptoms or necessary for patient management, should be tested with an alternative molecular assay. Negative results do not preclude SARS-CoV-2 infection and should not be used as the sole basis for patient management decisions. Fact sheet for Healthcare Providers: https://www.fda.gov/media/245668/download Fact sheet for Patients: https://www.fda.gov/media/253591/download Methodology: Isothermal Nucleic Acid Amplification Performed By: #### C OVRB #### [facility] [address] [place] [address] Tower Operator: Kali Barnes DO CBC with Diffon 05-18-2021 Abs. Basophil 0.00 k/uL Normal 0.0-0.2 [facility] Comment on above: Performed By: #### A LCB, CDP, MG, CMPX #### [facility] [address] [place] [address] Tower Operator: Kali Barnes DO Abs.Neutrophil (Seg) 8.60 k/uL Normal 1.3-9.1 [facility] Comment on above: Performed By: #### A LCB, CDP, MG, CMPX #### [facility] [address] [place] [address] Tower Operator: Kali Barnes DO Basophils/100 WBC (Bld) 0 % Normal 0-2 [facility] Comment on above: Performed By: #### A LCB, CDP, MG, CMPX #### [facility] [address] [place] [address] Tower Operator: Kali Barnes DO Eosinophils (Bld) [#/Vol] 0.10 10*3/uL Normal 0.0-0.4 [facility] Comment on above: Performed By: #### A LCB, CDP, MG, CMPX #### [facility] [address] [place] [address] Tower Operator: Kali Barnes DO Eosinophils/100 WBC (Bld) 1 % Normal 0-4 [facility] Comment on above: Performed By: #### A LCB, CDP, MG, CMPX #### [facility] [address] [place] [address], [place] [address] Tower Operator: Kali Barnes DO Erythrocyte distribution width (RBC) [Ratio] 14.2 % Normal 11.5-14.9 [facility] Comment on above: Performed By: #### A LCB, CDP, MG, CMPX #### [facility] [place] [address] Tower Operator: Kali Barnes DO Hematocrit (Bld) [Volume fraction] 45.3 % Normal 41-53 [facility] Comment on above: Performed By: #### A LCB, CDP, MG, CMPX #### [facility] [address] [place] [address] Tower Operator: Kali Barnes DO Hemoglobin (Bld) [Mass/Vol] 15.5 g/dL Normal 13.5-17.5 [facility] Comment on above: Performed By: #### A LCB, CDP, MG, CMPX #### [facility] [address] [place] [address] Tower Operator: Kali Barnes DO Lymphocytes (Bld) [#/Vol] 1.30 10*3/uL Normal 1.0-4.8 [facility] Comment on above: Performed By: #### A LCB, CDP, MG, CMPX #### [facility] [address] [place] [address] Tower Operator: Kali Barnes DO Lymphocytes/100 WBC (Bld) 13 % Low 24-44 [facility] Comment on above: Performed By: #### A LCB, CDP, MG, CMPX #### [facility] [address] [place] [address] Tower Operator: Kali Barnes DO MCH (RBC) [Entitic mass] 31.8 pg Normal 26-34 [facility] Comment on above: Performed By: #### A LCB, CDP, MG, CMPX #### [facility] [address] [facility] [place] [address] Tower Operator: Kali Barnes DO MCHC (RBC) [Mass/Vol] 34.2 g/dL Normal 31-37 [facility] Comment on above: Performed By: #### A LCB, CDP, MG, CMPX #### [facility] [place] [address] Tower Operator: Kali Barnes DO MCV (RBC) [Entitic vol] 93.0 fL Normal 80-100 M [facility] Comment on above: Performed By: #### A LCB, CDP, MG, CMPX #### [facility] [address] [place] [address] Tower Operator: Kali Barnes DO Monocytes (Bld) [#/Vol] 0.50 10*3/uL Normal 0.1-1.3 [facility] Comment on above: Performed By: #### A LCMatteo, CDP, MG, CMPX #### [facility] [place] [address] Tower Operator: Kali Barnes DO Monocytes/100 WBC (Bld) 5 % Normal 1-7 M [facility] Comment on above: Performed By: #### A LCB, CDP, MG, CMPX #### [facility] [place] [address] Tower Operator: Kali Barnes DO Neutrophil (Seg) 81 % High 36-66 [facility] Comment on above: Performed By: #### A LCB, CDP, MG, CMPX #### [facility] [place] [address] Tower Operator: Kali Barnes DO Platelet mean volume (Bld) [Entitic vol] 8.0 fL Normal 6.0-12.0 [facility] Comment on above: Performed By: #### A LCB, CDP, MG, CMPX #### [facility] [address] [facility] [place] [address] Tower Operator: Kali Barnes DO Platelets (Bld) [#/Vol] 208 10*3/uL Normal 150-450 [facility] Comment on above: Performed By: #### A LCB, CDP, MG, CMPX #### [facility] [address] [facility] [place] [address] Tower Operator: Kali Barnes DO RBC (Bld) [#/Vol] 4.87 10*6/uL Normal 4.5-5.9 [facility] Comment on above: Performed By: #### A LCB, CDP, MG, CMPX #### [facility] [address] [place] [address]. [place] [address] Tower Operator: Kali Barnes DO WBC (Bld) [#/Vol] 10.6 10*3/uL Normal 3.5-11.0 [facility] Comment on above: Performed By: #### A LCB, CDP, MG, CMPX #### [facility] [place] [address] Tower Operator: Kali Barnes DO Abs.Imm.Granulocyte NOT REPORTED Normal 0.00-0.30 [facility] Comment on above: Performed By: #### A LCB, CDP, MG, CMPX #### [facility] [address] [place] [address]. [place] [address] Tower Operator: Kali Barnes DO Auto Diff Performed NOT REPORTED Normal [facility] Comment on above: Performed By: #### A LCB, CDP, MG, CMPX #### [facility] [address] [place] [address] Tower Operator: Kali Barnes DO Immature Granulocyte NOT REPORTED Normal 0 [facility] Comment on above: Performed By: #### A LCB, CDP, MG, CMPX #### [facility] [address] [place] [address] Tower Operator: Kali Barnes DO NRBC Automated NOT REPORTED Normal [facility] Comment on above: Performed By: #### A LCB, CDP, MG, CMPX #### [facility] [address] [place] [address] Tower Operator: Kali Barnes DO Platelet Comment NOT REPORTED Normal [facility] Comment on above: Performed By: #### A LCB, CDP, MG, CMPX #### [facility] [address] [place] [address] Tower Operator: Kali Barnes DO RBC morphology finding Nom (Bld) NOT REPORTED Normal [facility] Comment on above: Performed By: #### A LCB, CDP, MG, CMPX #### [facility] [address] [place] [address] Tower Operator: Kali Barnes DO WBC Morphology NOT REPORTED Normal [facility] Comment on above: Performed By: #### A LCB, CDP, MG, CMPX #### [facility] [address] [place] [address] Tower Operator: Kali Barnes DO Comp Metabolic Pr/rfx MGon 1 - Potassium [Moles/Vol] 3.4 mmol/L Low 3.7-5.3 [facility] Comment on above: Performed By: #### A LCB, CDP, MG, CMPX #### [facility] [address] [place] [address] Tower Operator: Kali Barnes DO (cont.) Normal [facility] Comment on above: Result Comment: Aver age GFR for 40-49 years old: 99 mL/min/1.73sq m Chronic Kidney Disease: <60 mL/min/1.73sq m Kidney failure: <15 mL/min/1.73sq m eGFR calculated using average adult body mass. Additional eGFR calculator available at: http://www.[employer]/multiple_crcl_2012.htm Performed By: #### A LCB, CDP, MG, CMPX #### [facility] [address] [facility] [place] [address] Tower Operator: Kali Barnes DO Albumin [Mass/Vol] 5.3 g/dL High 3.5-5.2 [facility] Comment on above: Performed By: #### A LCB, CDP, MG, CMPX #### [facility] [address] [facility] [place] [address] Tower Operator: Kali Barnes DO Alkaline Phos 98 U/L Normal 40-129 [facility] Comment on above: Performed By: #### A LCB, CDP, MG, CMPX #### [facility] [address] [facility] [place] [address] Tower Operator: Kali Barnes DO ALT [Catalytic activity/Vol] 21 U/L Normal 5-41 [facility] Comment on above: Performed By: #### A LCB, CDP, MG, CMPX #### [facility] [address] [facility] [place] [address] Tower Operator: Kali Barnes DO Anion gap [Moles/Vol] 15 mmol/L Normal 9-17 [facility] Comment on above: Performed By: #### A LCB, CDP, MG, CMPX #### [facility] [address] [facility] [place] [address] Tower Operator: Kali Barnes DO AST [Catalytic activity/Vol] 25 U/L Normal <40 [facility] Comment on above: Performed By: #### A LCB, CDP, MG, CMPX #### [facility] [address] [place] [address] Tower Operator: Kali Barnes DO Bilirubin [Mass/Vol] 0.34 mg/dL Normal 0.3-1.2 [facility] Comment on above: Performed By: #### A LCB, CDP, MG, CMPX #### [facility] [place] [address] Tower Operator: Kali Barnes DO Calcium [Mass/Vol] 9.8 mg/dL Normal 8.6-10.4 [facility] Comment on above: Performed By: #### A LCB, CDP, MG, CMPX #### [facility] [place] [facility] [place] [address] Tower Operator: Kali Barnes DO Chloride [Moles/Vol] 102 mmol/L Normal 98-107 [facility] Comment on above: Performed By: #### A LCB, CDP, MG, CMPX #### [facility] [address] [place] [address]. [place] [address] Tower Operator: Kali Barnes DO CO2 [Moles/Vol] 22 mmol/L Normal 20-31 [facility] Comment on above: Performed By: #### A LCB, CDP, MG, CMPX #### [facility] [place] [facility] [place] [address] Tower Operator: Klai Barnes DO Creatinine [Mass/Vol] 1.05 mg/dL Normal 0.70-1.20 [facility] Comment on above: Performed By: #### A LCB, CDP, MG, CMPX #### [facility] [address] [place] [address]. [place] [address] Tower Operator: Kali Barnes DO GFR, Amer >60 Normal >60 [facility] Comment on above: Performed By: #### A LCB, CDP, MG, CMPX #### [facility] [address] [facility] [place] [address] Tower Operator: Kali Barnes DO GFR,non Amer >60 Normal >60 [facility] Comment on above: Performed By: #### A LCB, CDP, MG, CMPX #### [facility] [place] [address] Tower Operator: Kali Barnes DO Glucose [Mass/Vol] 73 mg/dL Normal 70-99 [facility] Comment on above: Performed By: #### A LCB, CDP, MG, CMPX #### [facility] [address] [place] [address]. [place] [address] Tower Operator: Kali Barnes DO Protein [Mass/Vol] 7.8 g/dL Normal 6.4-8.3 [facility] Comment on above: Performed By: #### A LCB, CDP, MG, CMPX #### [facility] [address] [place] [address]. [place] [address] Tower Operator: Kali Barnes DO Sodium [Moles/Vol] 139 mmol/L Normal 135-144 [facility] Comment on above: Performed By: #### A LCB, CDP, MG, CMPX #### [facility] [address] [place] [address]. [place] [address] Tower Operator: Kali Barnes DO Urea nitrogen [Mass/Vol] 10 mg/dL Normal 6-20 [facility] Comment on above: Performed By: #### A LCB, CDP, MG, CMPX #### [facility] [address] [place] [address] [place] [address] Tower Operator: Kali Barnes DO Albumin/Glob Ratio NOT REPORTED Normal 1.0-2.5 [facility] Comment on above: Performed By: #### A LCB, CDP, MG, CMPX #### [facility] [address] [facility] [place] [address] Tower Operator: Kali Barnes DO BUN/CRE Ratio NOT REPORTED Normal 9-20 [facility] Comment on above: Performed By: #### A LCB, CDP, MG, CMPX #### [facility] [place] [address] Tower Operator: Kali Barnes DO Staging: NOT REPORTED Normal [facility] Comment on above: Performed By: #### A LCB, CDP, MG, CMPX #### [facility] [place] [address] Tower Operator: Kali Barnes DO Ethanol Alcoholon 05-18-2021 Ethanol [Mass/Vol] 145 mg/dL High <10 [facility] Comment on above: Performed By: #### A LCB, CDP, MG, CMPX #### [facility] [address] [place] [address]. [place] [address] Tower Operator: Kali Barnes DO Ethanol percent 0.145 % Normal [facility] Comment on above: Performed By: #### A LCB, CDP, MG, CMPX #### [facility] [place] [address] Tower Operator: Kali Barnes DO Magnesiumon 05-18-2021 Magnesium [Mass/Vol] 2.5 mg/dL Normal 1.6-2.6 [facility] Comment on above: Performed By: #### A LCB, CDP, MG, CMPX #### [facility] [address] [facility] [place] [address] Tower Operator: Kali Barnes DO [id number] 05-18-2021 SARS-CoV-2 (COVID-19) RNA DONELL+probe Ql (Unsp spec) Not detected Normal [facility] Comment on above: Result Comment: Rapid NAAT: The specimen is NEGATIVE for SARS-CoV-2, the novel coronavirus associated with COVID-19. The ID NOW COVID-19 assay is designed to detect the virus that causes COVID-19 in patients with signs and symptoms of infection who are suspected of COVID-19. An individual without symptoms of COVID-19 and who is not shedding SARS-CoV-2 virus would expect to have a negative (not detected) result in this assay. Negative results should be treated as presumptive and, if inconsistent with clinical signs and symptoms or necessary for patient management, should be tested with an alternative molecular assay. Negative results do not preclude SARS-CoV-2 infection and should not be used as the sole basis for patient management decisions. Fact sheet for Healthcare Providers: https://www.fda.gov/media/538794/download Fact sheet for Patients: https://www.fda.gov/media/372084/download Methodology: Isothermal Nucleic Acid Amplification Performed By: #### C OVRB #### [facility] [address] [facility] [place] [address] Tower Operator: Kali Barnes DO Cryoglobulinson 12-10-2018 Cryoglobulins 0 mg/dL Normal 0-10 [facility] Comment on above: Performed By: #### C DP, PT, TROPI, CMPX #### [facility] [place], [place] [id number] Tower Operator: Sanju Eli MD MRI BRAIN WO CONTRASTon 11-14 MRI BRAIN WO CONTRAST EXAMINATION: MRI OF THE BRAIN WITHOUT CONTRAST 12/04/2018 11:05 am TECHNIQUE: Multiplanar multisequence MRI of the brain was performed without the administration of intravenous contrast. COMPARISON: None HISTORY: ORDERING SYSTEM PROVIDED HISTORY: STROKE FINDINGS: INTRACRANIAL STRUCTURES/VENTRICLES : There is no acute infarct. No mass effect or midline shift. No evidence of an acute intracranial hemorrhage. The ventricles and sulci are normal in size and configuration. The sellar/suprasellar regions appear unremarkable. The normal signal voids within the major intracranial vessels appear maintained. ORBITS: The visualized portion of the orbits demonstrate no acute abnormality. SINUSES: Mild mucosal thickening within the paranasal sinuses. No evidence of air-fluid levels. The mastoid air cells are clear. BONES/SOFT TISSUES: No significant abnormalities. IMPRESSION: No acute infarct, intracranial hemorrhage, or significant mass effect. Interpreted by: Jamin Bowen MD Signed by: Jamin Bowen MD 12/08/18 Final result Normal [facility] Mycg-[id number] Abon 2018 B2 Glycoprot I, IgG 0 SGU Normal 0-20 [facility] Comment on above: Performed By: #### C DP, PT, TROPI, CMPX #### [place] [id number] Tower Operator: Sanju Eli MD B2 Glycoprot I, IgM 1 SMU Normal 0-20 [facility] Comment on above: Result Comment: (NOT E) INTERPRETIVE INFORMATION: [id number] I, IgG and IgM Antibody The persistent presence of IgG and/or IgM beta 2 glycoprotein I (B2GPI) antibodies (greater than 99th percentile) is a laboratory criterion for the diagnosis of antiphospholipid syndrome (APS). Persistence is defined as moderate or high levels of IgG and/or IgM B2GPI antibodies detected in two or more specimens drawn at least 12 weeks apart (J Throm Haemost. 2006;4:295-306). B2GPI results greater than 20 SGU (IgG) and/or SMU (IgM) are considered positive based on the cutoff values established for this test. International reference materials and consensus units for anti-B2GPI antibodies have not been established (Clin Amanda Acta. 2012;413(1-2):358-60; Arthritis Rheum. 2012;64(1):1-10.). Strong clinical correlation is recommended for a diagnosis of APS. Low positive IgG and IgM B2GPI antibody levels should be interpreted in light of APS-specific clinical manifestations and/or other criteria phospholipid antibody tests. Performed by [employer], [address] [place] [address],[place] [id number] www.[employer], Moreno Hall MD, Lab. Director Performed By: #### C DP, PT, TROPI, CMPX #### [facility] [address] [place] [address] [phone] Tower Operator: Sanju Eli MD CH50on 12-08-2018 CH50 96 Units Normal 60-144 [facility] Comment on above: Result Comment: (NOT E) INTERPRETIVE INFORMATION: Complement Activity, Total EIA 59 Units or less .......... Low 60-144 Units .............. Normal 145 Units or greater ....... High Performed by [employer], [address] [place] [address],[place] [id number] www.[employer], Moreno Hall MD, Lab. Director Performed By: #### C DP, PT, TROPI, CMPX #### [facility] [address] [place] [address] [phone] Tower Operator: Sanju Eli MD Protein C Antigenicon 2018 Protein [Mass/Vol] 125 % Normal 63-153 [facility] Comment on above: Result Comment: (NOT E) INTERPRETIVE INFORMATION: Protein C, Total Antigen Patients on warfarin may have decreased protein C values. Patients should be off warfarin therapy for two weeks for accurate measurement of protein C. Access complete set of age- and/or gender-specific reference intervals for this test in the [facility] Test Directory ([employer]). Performed by [employer], [address] [place] [address],[place] [id number] www.[email or web address], Moreno Hall MD, Lab. Director Performed By: #### C DP, PT, TROPI, CMPX #### [facility] [address] [place] [address] [phone] Tower Operator: Sanju Eli MD Protein S, Antigenicon 12-08 Protein [Mass/Vol] 99 % Normal 84-134 [facility] Comment on above: Result Comment: (NOT E) INTERPRETIVE INFORMATION: Protein S, Total Antigen Patients on warfarin may have decreased protein S values. Patients should be off warfarin therapy for two weeks for accurate measurement of protein S. Access complete set of age- and/or gender-specific reference intervals for this test in the [facility] Test Directory ([employer]). Performed by [employer], [address] [place] [id number] www.[employer], Moreno Hall MD, Lab. Director Performed By: #### C DP, PT, TROPI, CMPX #### [address] [address] Tower Operator: Sanju Eli MD Factor V Activityon 12-08-19 19 Factor V Activity 123 % Normal 50-150 [facility] Comment on above: Performed By: #### C DP, PT, TROPI, CMPX #### [facility] [address] [place] [address] Tower Operator: Sanju Eli MD Lupus Anticoagulanton 2018 Dilute Eulogio Viper Negative Normal [facility] Comment on above: Performed By: #### C DP, PT, TROPI, CMPX #### [facility] [address] [place] [address] Tower Operator: Sanju Eli MD Antiphospholipid IgA 0.6 APU Normal <12 [facility] Comment on above: Result Comment: Reference Range: 12 - 15 Equivocal >15 Positive Performed By: #### C DP, PT, TROPI, CMPX #### [address] [address] Tower Operator: Sanju Eli MD Antiphospholipid IgG 2.6 GPU Normal <20 [facility] Comment on above: Result Comment: Reference Range: 20.0 - 29.9 Low Positive 30.0 - 79.9 Moderate Positive >79.9 High Positive Performed By: #### C DP, PT, TROPI, CMPX #### [address] [phone] Tower Operator: Sanju Eli MD Antiphospholipid IgM 2.0 MPU Normal <20 [facility] Comment on above: Result Comment: Reference Range: 20.0 - 29.9 Low Positive 30.0 - 79.9 Moderate Positive >79.9 High Positive Performed By: #### C DP, PT, TROPI, CMPX #### [address] [phone] Tower Operator: Sanju Eli MD Neutrophil Cytopl Abon 12-07 MPO-ANCA 7 AU/mL Normal <100 [facility] Comment on above: Result Comment: Reference Ranges (MPO and PR3): <100 AU/mL Negative 100-120 AU/mL Equivocal >120 AU/mL Positive Performed By: #### C DP, PT, TROPI, CMPX #### [address] [phone] Tower Operator: Sanju Eli MD PR3-ANCA 11 AU/mL Normal <100 [facility] Comment on above: Result Comment: Reference Ranges (MPO and PR3): <100 AU/mL Negative 100-120 AU/mL Equivocal >120 AU/mL Positive Performed By: #### C DP, PT, TROPI, CMPX #### [address] [phone] Tower Operator: Sanju Eli MD JACKY Screenon 12-06-2018 JACKY Screen Negative Normal NEG [facility] Comment on above: Result Comment: This test was run on the [employer] JACKY test system. The system provides ten test results (HEp-2NA, dsDNA, SSA, SSB, Sm, NURSES ASSISTANT, Scl-70, Bettie-1, Centromere and Histone analytes) from a single patient sample. A negative JACKY screen indicates that the specimen was negative for all ten markers. Performed By: #### C DP, PT, TROPI, CMPX #### [facility] [address] [place] [phone] Tower Operator: Sanju Eli MD MRI BRAIN WO CONTRASTon 11-14 MRI BRAIN WO CONTRAST EXAMINATION: MRI OF THE BRAIN WITHOUT CONTRAST 12/06/2018 3:17 pm TECHNIQUE: Multiplanar multisequence MRI of the brain was performed without the administration of intravenous contrast. COMPARISON: 12/04/2018 HISTORY: ORDERING SYSTEM PROVIDED HISTORY: re evalute for new infarct TECHNOLOGIST PROVIDED HISTORY: Just perform limited stroke sequence. FINDINGS: Limited stroke sequences of the brain were obtained as requested. There is no acute infarct. No mass, shift, or bleed is identified. IMPRESSION: No acute infarct. Interpreted by: Shivam Kelley MD Signed by: Shivam Kelley MD 12/06/18 Final result Normal [facility] MTHFR Gene Mutationon 2018 Report to follow: [id number] Normal [facility] Comment on above: Result Comment: SEE SEPARATE REPORT Performed By: #### C DP, PT, TROPI, CMPX #### [address] [address] Tower Operator: Sanju Eli MD PT Mutation [id number] 12-07-19 Report to follow: PT19 254 [facility] Comment on above: Result Comment: SEE SEPARATE REPORT Performed By: #### C DP, PT, TROPI, CMPX #### [address] [address] Tower Operator: Sanju Eli MD C-Reactive Proteinon 019 CRP [Mass/Vol] 1.3 mg/L Normal 0.0-5.0 [facility] Comment on above: Performed By: #### C DP, PT, TROPI, CMPX #### [facility] [employer] [address] [place] [address] Tower Operator: Sanju Eli MD DNA Testingon 12-05-2018 DNA Testing (NOTE) [id number] [facility] MOLECULAR PATHOLOGY LABORATORY [address] [place] [id number] FACTOR II (PROTHROMBIN) MUTATION ANALYSIS REPORT [facility] Alejandro Garcia MD, Ovidio Leyva MD Specimen(s) Received: Peripheral blood, PTI Clinical Information: Right Sided Weakness RESULTS: MOLECULAR GENETIC DIAGNOSIS: Negative for Prothrombin 87782K Mutation INTERPRETATION: The Factor II (Prothrombin) mutation (16027AP) [c.*97G>A] was not detected in this study. This patient may, however, still be at risk for venous thrombosis due to another genetic predisposition including the Factor V Leiden (1691GA) mutation or either of the 5, 10-methylenetetrahydr ofolate reductase (MTHFR) mutations (677T and Y7426S). Additional molecular testing is available for these mutations in this laboratory. In addition, other etiologies not studied in this assay may predispose this patient to venous thrombosis. Patients and their families undergoing molecular diagnostic testing should understand that a normal result for such tests does not preclude the unlikely possibility of genotyping errors occurring as a result of rare genetic variants which can interfere with the analysis or an unusual mutation of the gene(s) being studied. This molecular test has been approved for in vitro diagnostic use by the U.S. FDA. This test is used for clinical purposes. Pursuant to the requirements of CLIA '88, this laboratory has established and verified the test's accuracy and precision. It should not be regarded as investigational or for research. This laboratory is certified under the Clinical Laboratory Improvement Amendments of 1988 (CLIA '88) as qualified to perform high complexity clinical laboratory testing. METHODOLOGY: Prothrombin is a precursor of the enzyme serine protease thrombin that has procoagulant, anticoagulant, and antifibrinolytic activities. A single point mutation has been identified in exon 14 at position 54985 of the prothrombin gene ([id number]). This allele has a population frequency of 1.2% and is associated with a 2.8 fold increased risk of venous thrombosis in individuals of [place] ancestry. Patient DNA is assayed for the presence of wild type or mutant gene sequences in the Factor II (Prothrombin) gene by the Invader Factor II test that utilizes [facility] [facility] chemistry for detecting gene-specific sequences. Target amplification is followed by the signal generation (Invader) phase of the assay. The Invader assay employs a genetically engineered nuclease, known as a Cleavasee enzyme, to recognize and cleave specific genomic structures formed by the addition of two oligonucleotide probes [Wild Type (WT) or Mutant (Mut)] to a nucleic acid target. Fluorescence signal intensity is enhanced through a second Cleavasee cleavage reaction and fluorescence resonance energy transfer (FRET), with detection of fluorescent signal using a fluorescence plate reader. Invader and Cleavase are registered trademarks of [employer] This test is performed pursuant to an agreement with [employer] Electronically Signed Out Alejandro Garcia M.D. 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 The presence of this mutation in the heterozygous state is not an independent risk factor associated with increased risk of hyperhomocysteinemia, venous thromboembolism or ischemic cardiovascular disease. This patient may, however, still be at risk for venous thrombosis due to another genetic predisposition including the Factor V Leiden mutation or Prothrombin 47966S mutation. Additional molecular testing is available for these mutations in this laboratory. In addition, other etiologies not studied in this assay may predispose this patient to venous thrombosis. Genetic counseling is recommended to discuss the implications of this testing. In addition, the study of other at-risk family members is recommended. Please contact the [facility] at [phone]. This molecular test has been approved for in vitro diagnostic use by the U.S. FDA. This test is used for clinical purposes. Pursuant to the requirements of CLIA '88, this laboratory has established and verified the test's accuracy and precision. It should not be regarded as investigational or for research. This laboratory is certified under the Clinical Laboratory Improvement Amendments of 1988 (CLIA '88) as qualified to perform high complexity clinical laboratory testing. METHODOLOGY: Hyperhomocysteinemia is associated with an increased risk for cerebrovascular, peripheral vascular and coronary heart disease. The 5, 10-methylenetetrahydr ofolate reductase (MTHFR) gene produces an enzyme that catalyzes the remethylation of homocysteine. The C677T and O5947J mutations in this gene in either a heterozygous or homozygous state correlate with reduced enzyme activity. Increased plasma homocysteine levels (hyperhomocysteinemia ) as a result of reduced enzyme activity and increased thermolability occur in individuals homozygous for the C677T mutation or in individuals carrying one C677T mutation and one U0011P mutation (compound heterozygosity). Patient DNA is assayed for the presence of wild type or mutant gene sequences in the MTHFR gene by the Invader MTHFR test that utilizes [employer] chemistry for detecting gene-specific sequences. Target amplification is followed by the signal generation (Invader) phase of the assay. The Invader assay employs a genetically engineered nuclease, known as a Cleavasee enzyme, to recognize and cleave specific genomic structures formed by the addition of two oligonucleotide probes [Wild Type (WT) or Mutant (Mut)] to a nucleic acid target. Fluorescence signal intensity is enhanced through a second Cleavasee cleavage reaction and fluorescence resonance energy transfer (FRET), with detection of fluorescent signal using a fluorescence plate reader. Invader and Cle[employer] are registered trademarks of [employer] This test is performed pursuant to an agreement with [employer] Electronically Signed Out Alejandro Garcia M.D. Normal [facility] Comment on above: Performed By: #### C DP, PT, TROPI, CMPX #### [facility] [address] [place] [address] Tower Operator: Sanju Eli MD Hemoglobin A1Con 12-05-2018 HbA1c (Bld) [Mass fraction] 5.3 % Normal 4.0-6.0 [facility] Comment on above: Performed By: #### C BC, LIPR, BMP, GLYHGB #### [address] [address] Tower Operator: Sanju Eli MD HbA1c (Bld) [Mass fraction] 105 mg/dL Normal [facility] Comment on above: Result Comment: The ADA and AACC recommend providing the estimated average glucose result to permit better patient understanding of their HBA1c result. Performed By: #### C BC, LIPR, BMP, GLYHGB #### [address] [address] Tower Operator: Sanju Eli MD Lupus Anticoagulanton 2018 aPTT Coag (Bld) [Time] 23.3 s Normal 20.5-30.5 [facility] Comment on above: Performed By: #### C DP, PT, TROPI, CMPX #### [address] [address] Tower Operator: Sanju Eli MD INR Coag (PPP) [Relative time] 0.9 {INR} Normal [facility] Comment on above: Result Comment: Therapeutic Range: Moderate Anticoagulant Intensity: INR = 2.0-3.0 High Anticoagulant Intensity: INR = 2.5-3.5 Performed By: #### C DP, PT, TROPI, CMPX #### [address] [address] Tower Operator: Sanju Eli MD PT Coag (PPP) [Time] 10.1 s Normal 9.0-12.0 [facility] Comment on above: Performed By: #### C DP, PT, TROPI, CMPX #### [address] [address] Tower Operator: Sanju Eli MD Lupus Anticoagulant NOT REPORTED Normal [facility] Comment on above: Performed By: #### C DP, PT, TROPI, CMPX #### [address] [address] Tower Operator: Sanju Eli MD MRI CERVICAL SPINE WO ANI Gomez 12-05-2018 MRI CERVICAL SPINE WO CONTRAST EXAMINATION: MRI OF THE CERVICAL SPINE WITHOUT CONTRAST 12/04/2018 10:55 pm TECHNIQUE: Multiplanar multisequence MRI of the cervical spine was performed without the administration of intravenous contrast. COMPARISON: CT angiogram neck 12/03/2018 HISTORY: ORDERING SYSTEM PROVIDED HISTORY: rule out spinal stenosis FINDINGS: BONES/ALIGNMENT: There is normal alignment of the cervical spine. There is no acute fracture or listhesis. Bone marrow signal intensity is normal. There is disc desiccation and disc space narrowing at C5-6 and C6-7. Intervertebral disc height and signal is otherwise normal. SPINAL CORD: The cervical spinal cord is normal in size and signal intensities. SOFT TISSUES: There is no paraspinal mass identified. C2-C3: There is no disc bulge or protrusion present. There is no significant spinal canal stenosis or neural foraminal narrowing present. C3-C4: There is no disc bulge or protrusion present. There is no significant spinal canal stenosis or neural foraminal narrowing present. C4-C5: There is no disc bulge or protrusion present. There is no significant spinal canal stenosis or neural foraminal narrowing present. C5-C6: There is a disc bulge and uncovertebral overgrowth. There is mild spinal canal stenosis, moderate right and mild left neural foraminal narrowing. C6-C7: There is a disc bulge and uncovertebral overgrowth. There is mild spinal canal stenosis. There is mild bilateral neural foraminal narrowing. C7-T1: There is no disc bulge or protrusion present. There is no significant spinal canal stenosis or neural foraminal narrowing present. IMPRESSION: 1. Mild spinal canal stenosis, moderate right and mild left neural foraminal narrowing at C5-6 secondary to a disc bulge and uncovertebral overgrowth. 2. Mild spinal canal stenosis and mild bilateral neural foraminal narrowing at C6-7 secondary to a disc bulge and uncovertebral overgrowth. Interpreted by: Krishna Govea MD Signed by: Krishna Govea MD 12/05/18 Final result Normal [facility] Sedimentation Rateon 019 Sedimentation Rate 4 mm Normal 0-10 [facility] Comment on above: Performed By: #### C DP, PT, TROPI, CMPX #### [address] [address] Tower Operator: Sanju Eli MD Basic Metabolic Profon 12-04 (cont.) Normal [facility] Comment on above: Result Comment: Aver age GFR for 30-39 years old: 107 mL/min/1.73sq m Chronic Kidney Disease: <60 mL/min/1.73sq m Kidney failure: <15 mL/min/1.73sq m eGFR calculated using average adult body mass. Additional eGFR calculator available at: http://www.Reflex/multiple_crcl_2012.htm ADDED ON Performed By: #### C BC, LIPR, BMP, GLYHGB #### [address] [address] Tower Operator: Sanju Eli MD Anion gap [Moles/Vol] 16 mmol/L Normal 9-17 [facility] Comment on above: Result Comment: ADDE D ON Performed By: #### C BC, LIPR, BMP, GLYHGB #### [address] [address] Tower Operator: Sanju Eli MD Calcium [Mass/Vol] 8.8 mg/dL Normal 8.6-10.4 [facility] Comment on above: Result Comment: ADDE D ON Performed By: #### C BC, LIPR, BMP, GLYHGB #### [address] [address] Tower Operator: Sanju Eli MD Chloride [Moles/Vol] 105 mmol/L Normal 98-107 [facility] Comment on above: Result Comment: ADDE D ON Performed By: #### C BC, LIPR, BMP, GLYHGB #### [address] [address] Tower Operator: Sanju Eli MD CO2 [Moles/Vol] 18 mmol/L Low 20-31 [facility] Comment on above: Result Comment: ADDE D ON Performed By: #### C BC, LIPR, BMP, GLYHGB #### [facility] [address] [place] [address] Tower Operator: Sanju Eli MD Creatinine [Mass/Vol] 1.20 mg/dL Normal 0.70-1.20 [facility] Comment on above: Result Comment: ADDE D ON Performed By: #### C BC, LIPR, BMP, GLYHGB #### [facility] [address] [place] [address] Tower Operator: Sanju Eli MD GFR, Amer >60 Normal >60 [facility] Comment on above: Result Comment: ADDE D ON Performed By: #### C BC, LIPR, BMP, GLYHGB #### [facility] [employer] [address] [place] [address] Tower Operator: Sanju Eli MD GFR,non Amer >60 Normal >60 [facility] Comment on above: Result Comment: ADDE D ON Performed By: #### C BC, LIPR, BMP, GLYHGB #### [facility] [address] [place] [address] Tower Operator: Sanju Eli MD Glucose [Mass/Vol] 76 mg/dL Normal 70-99 [facility] Comment on above: Result Comment: ADDE D ON Performed By: #### C BC, LIPR, BMP, GLYHGB #### [facility] [address] [place] [address] Tower Operator: Sanju Eli MD Potassium [Moles/Vol] 4.1 mmol/L Normal 3.7-5.3 [facility] Comment on above: Result Comment: ADDE D ON Performed By: #### C BC, LIPR, BMP, GLYHGB #### [facility] [address] [place] [address] Tower Operator: Sanju Eli MD Sodium [Moles/Vol] 139 mmol/L Normal 135-144 [facility] Comment on above: Result Comment: ADDDilma D ON Performed By: #### C BC, LIPR, BMP, GLYHGB #### [facility] [address] [place] [address] Tower Operator: Sanju Eli MD Urea nitrogen [Mass/Vol] 14 mg/dL Normal 12-02 [facility] Comment on above: Result Comment: ADDDilma D ON Performed By: #### C BC, LIPR, BMP, GLYHGB #### [facility] [address] [place] [address] Tower Operator: Sanju Eli MD BUN/CRE Ratio NOT REPORTED Normal - [facility] Comment on above: Performed By: #### C BC, LIPR, BMP, GLYHGB #### [facility] [address] [place] [address] Tower Operator: Sanju Eli MD Staging: NOT REPORTED Normal [facility] Comment on above: Performed By: #### C BC, LIPR, BMP, GLYHGB #### [facility] [address] [place] [address] Tower Operator: Sanju Eli MD CBCon 12-04-2018 Erythrocyte distribution width (RBC) [Ratio] 15.7 % High 11.8-14.4 [facility] Comment on above: Performed By: #### C BC, LIPR, BMP, GLYHGB #### [facility] [address] [place] [address] Tower Operator: Sanju Eli MD Hematocrit (Bld) [Volume fraction] 39.9 % Low 40.7-50.3 [facility] Comment on above: Performed By: #### C BC, LIPR, BMP, GLYHGB #### [facility] [address] [place] [address] Tower Operator: Sanju Eli MD Hemoglobin (Bld) [Mass/Vol] 12.7 g/dL Low 13.0-17.0 [facility] Comment on above: Performed By: #### C BC, LIPR, BMP, GLYHGB #### [address] [address] Tower Operator: Sanju Eli MD MCH (RBC) [Entitic mass] 30.0 pg Normal 25.2-33.5 [facility] Comment on above: Performed By: #### C BC, LIPR, BMP, GLYHGB #### [address] [address] Tower Operator: Sanju Eli MD MCHC (RBC) [Mass/Vol] 31.8 g/dL Normal 28.4-34.8 [facility] Comment on above: Performed By: #### C BC, LIPR, BMP, GLYHGB #### [place] [address] Tower Operator: Sanju Eli MD MCV (RBC) [Entitic vol] 94.1 fL Normal 82.6-102.9 [facility] Comment on above: Performed By: #### C BC, LIPR, BMP, GLYHGB #### [address] [address] Tower Operator: Sanju Eli MD NRBC Automated 0.0 per 100 WBC Normal 0.0 [facility] Comment on above: Performed By: #### C BC, LIPR, BMP, GLYHGB #### [address] [address] Tower Operator: Sanju Eli MD Platelet mean volume (Bld) [Entitic vol] 9.5 fL Normal 8.1-13.5 [facility] Comment on above: Performed By: #### C BC, LIPR, BMP, GLYHGB #### [facility] [address] Tower Operator: Sanju Eli MD Platelets (Bld) [#/Vol] 210 10*3/uL Normal 138-453 [facility] Comment on above: Performed By: #### C BC, LIPR, BMP, GLYHGB #### [address] [address] Tower Operator: Sanju Eli MD RBC (Bld) [#/Vol] 4.24 10*6/uL Normal 4.21-5.77 [facility] Comment on above: Performed By: #### C BC, LIPR, BMP, GLYHGB #### [address] [address] Tower Operator: Sanju Eli MD WBC (Bld) [#/Vol] 5.1 10*3/uL Normal 3.5-11.3 [facility] Comment on above: Performed By: #### C BC, LIPR, BMP, GLYHGB #### [address] [address] Tower Operator: Sanju Eli MD Comp Metabolic Pr/rfx MGon 0 - Albumin [Mass/Vol] 4.4 g/dL Normal 3.5-5.2 [facility] Comment on above: Performed By: #### C DP, PT, TROPI, CMPX #### [address] [address] Tower Operator: Sanju Eli MD Albumin/Globulin [Mass ratio] 1.7 {ratio} Normal 1.0-2.5 [facility] Comment on above: Performed By: #### C DP, PT, TROPI, CMPX #### [address] [address] Tower Operator: Sanju Eli MD Alkaline Phos 84 U/L Normal 40-129 [facility] Comment on above: Performed By: #### C DP, PT, TROPI, CMPX #### [facility] [address] [place] [address] Tower Operator: Sanju Eli MD ALT [Catalytic activity/Vol] 19 U/L Normal 5-41 [facility] Comment on above: Performed By: #### C DP, PT, TROPI, CMPX #### [address] [address] Tower Operator: Sanju Eli MD Anion gap [Moles/Vol] 10 mmol/L Normal 9-17 [facility] Comment on above: Performed By: #### C DP, PT, TROPI, CMPX #### [facility] [address] [place] [address] Tower Operator: Sanju Eli MD AST [Catalytic activity/Vol] 23 U/L Normal <40 [facility] Comment on above: Performed By: #### C DP, PT, TROPI, CMPX #### [address] [address] Tower Operator: Sanju Eli MD Bilirubin Ql (U) 0.22 mg/dL Low 0.3-1.2 [facility] Comment on above: Performed By: #### C DP, PT, TROPI, CMPX #### [address] [address] Tower Operator: Sanju Eli MD Calcium [Mass/Vol] 8.9 mg/dL Normal 8.6-10.4 [facility] Comment on above: Performed By: #### C DP, PT, TROPI, CMPX #### [facility] [address] [place] [address] Tower Operator: Sanuj Eli MD Chloride [Moles/Vol] 107 mmol/L Normal 98-107 [facility] Comment on above: Performed By: #### C DP, PT, TROPI, CMPX #### [address] [address] Tower Operator: Sanju Eli MD CO2 [Moles/Vol] 24 mmol/L Normal 20-31 [facility] Comment on above: Performed By: #### C DP, PT, TROPI, CMPX #### [address] [address] Tower Operator: Sanju Eli MD Creatinine [Mass/Vol] 1.25 mg/dL High 0.70-1.20 [facility] Comment on above: Performed By: #### C DP, PT, TROPI, CMPX #### [address] [address] Tower Operator: Sanju Eli MD GFR, Amer >60 Normal >60 [facility] Comment on above: Performed By: #### C DP, PT, TROPI, CMPX #### [address] [address] Tower Operator: Sanju Eli MD GFR,non Amer >60 Normal >60 [facility] Comment on above: Performed By: #### C DP, PT, TROPI, CMPX #### [address] [address] Tower Operator: Sanju Eli MD Glucose [Mass/Vol] 79 mg/dL Normal 70-99 [facility] Comment on above: Performed By: #### C DP, PT, TROPI, CMPX #### [address] [address] Tower Operator: Sanju Eli MD Potassium [Moles/Vol] 3.9 mmol/L Normal 3.7-5.3 [facility] Comment on above: Performed By: #### C DP, PT, TROPI, CMPX #### [address] [address] Tower Operator: Sanju Eli MD Protein [Mass/Vol] 7.0 g/dL Normal 6.4-8.3 [facility] Comment on above: Performed By: #### C DP, PT, TROPI, CMPX #### [address] [address] Tower Operator: Sanju Eli MD Sodium [Moles/Vol] 141 mmol/L Normal 135-144 [facility] Comment on above: Performed By: #### C DP, PT, TROPI, CMPX #### [address] [address] Tower Operator: Sanju Eli MD Urea nitrogen [Mass/Vol] 13 mg/dL Normal 6-20 [facility] Comment on above: Performed By: #### C DP, PT, TROPI, CMPX #### [address] [address] Tower Operator: Sanju Eli MD (cont.) Normal [facility] Comment on above: Result Comment: Aver age GFR for 30-39 years old: 107 mL/min/1.73sq m Chronic Kidney Disease: <60 mL/min/1.73sq m Kidney failure: <15 mL/min/1.73sq m eGFR calculated using average adult body mass. Additional eGFR calculator available at: http://www.Viraloid.com/multiple_crcl_2012.htm Performed By: #### C DP, PT, TROPI, CMPX #### [address] [address] Tower Operator: Sanju Eli MD Drug Scr, Abuse, Uron 2018 Amphetamine(s),Ur Negative Normal NEG [facility] Comment on above: Result Comment: (Positive cutoff 1000 ng/mL) Performed By: #### C DP, PT, TROPI, CMPX #### [address] [place] [address] Tower Operator: Sanju Eli MD Barbiturate(s),Ur Negative Normal NEG [facility] Comment on above: Result Comment: (Positive cutoff 200 ng/mL) Performed By: #### C DP, PT, TROPI, CMPX #### [facility] [address] [place] [address] Tower Operator: Sanju Eli MD Base excess Calc (Bld) [Moles/Vol] Positive Abnormal NEG [facility] Comment on above: Result Comment: (Positive cutoff 300 ng/mL) Performed By: #### C DP, PT, TROPI, CMPX #### [facility] [address] [place] [address] Tower Operator: Sanju Eli MD Benzodiazepine(s) Negative Normal NEG [facility] Comment on above: Result Comment: (Positive cutoff 200 ng/mL) Performed By: #### C DP, PT, TROPI, CMPX #### [facility] [address] [place] [address] Tower Operator: Sanju Eli MD Cannabinoid(s),Ur Negative Normal NEG [facility] Comment on above: Result Comment: (Positive cutoff 50 ng/mL) Performed By: #### C DP, PT, TROPI, CMPX #### [facility] [address] [place] [address] Tower Operator: Sanju Eli MD Interpretive Info Assay provides medical screening only. The absence of expected drug(s) and/or Normal [facility] Comment on above: Result Comment: meta bolite(s) may indicate diluted or adulterated urine, limitations of testing or timing of collection. Testing for legal purposes should be confirmed by another method. To request confirmation of test result, please call the lab within 7 days of sample submission. Performed By: #### C DP, PT, TROPI, CMPX #### [facility] [address] [place] [address] Tower Operator: Sanju Eli MD Methadone Ql (U) Negative Normal NEG [facility] Comment on above: Result Comment: (Positive cutoff 300 ng/mL) Performed By: #### C DP, PT, TROPI, CMPX #### [facility] [employer] [address] [place] [address] Tower Operator: Sanju Eli MD Opiate(s), Ur Negative Normal NEG [facility] Comment on above: Result Comment: (Positive cutoff 300 ng/mL) Performed By: #### C DP, PT, TROPI, CMPX #### [facility] [employer] [address] [place] [address] Tower Operator: Sanju Eli MD Oxycodone, Urine Negative Normal NEG [facility] Comment on above: Result Comment: (Positive cutoff 100 ng/mL) Performed By: #### C DP, PT, TROPI, CMPX #### [facility] [address] [place] [address] Tower Operator: Sanju Eli MD Phencyclidine, Ur Negative Normal NEG [facility] Comment on above: Result Comment: (Positive cutoff 25 ng/mL) Performed By: #### C DP, PT, TROPI, CMPX #### [facility] [address] [place] [address] Tower Operator: Sanju Eli MD Buprenorphrine, Ur NOT REPORTED Normal NEG [facility] Comment on above: Performed By: #### C DP, PT, TROPI, CMPX #### [facility] [address] [place] [address] Tower Operator: Sanju Eli MD MDMA, Urine NOT REPORTED Normal NEG [facility] Comment on above: Performed By: #### C DP, PT, TROPI, CMPX #### [facility] [address] [place] [address] Tower Operator: Sanju Eli MD Methamphetamine, Ur NOT REPORTED Normal NEG [facility] Comment on above: Performed By: #### C DP, PT, TROPI, CMPX #### [facility] [employer] [address] [place] [address] Tower Operator: Sanju Eli MD Propoxyphene,Urine NOT REPORTED Normal NEG [facility] Comment on above: Performed By: #### C DP, PT, TROPI, CMPX #### [facility] [employer] [address] [place] [address] Tower Operator: Sanju Eli MD Tricyclic antidepressants Screen Ql (U) NOT REPORTED Normal NEG [facility] Comment on above: Performed By: #### C DP, PT, TROPI, CMPX #### [facility] [employer] [address] [place] [address] Tower Operator: Sanju Eli MD Lipid Profileon 12-04-2018 Cholesterol [Mass/Vol] 126 mg/dL Normal <200 [facility] Comment on above: Result Comment: Cholesterol Guidelines: <200 Desirable 200-240 Borderline >240 Undesirable Performed By: #### C BC, LIPR, BMP, GLYHGB #### [address] [address] Tower Operator: Sanju Eli MD Cholesterol in HDL [Mass/Vol] 57 mg/dL Normal >40 [facility] Comment on above: Result Comment: HDL Guidelines: <40 Undesirable 40-59 Borderline >59 Desirable Performed By: #### C BC, LIPR, BMP, GLYHGB #### [address] [address] Tower Operator: Sanju Eli MD Cholesterol in LDL [Mass/Vol] 58 mg/dL Normal 0-130 [facility] Comment on above: Result Comment: LDL Guidelines: <100 Desirable 100-129 Near to/above Desirable 130-159 Borderline >159 Undesirable Direct (measured) LDL and calculated LDL are not interchangeable tests. Performed By: #### C BC, LIPR, BMP, GLYHGB #### [address] [address] Tower Operator: Sanju Eli MD Cholesterol.total/Choles terol in HDL [Mass ratio] 2.2 {ratio} Normal <5 [facility] Comment on above: Performed By: #### C BC, LIPR, BMP, GLYHGB #### [address] [address] Tower Operator: Sanju Eli MD Triglyceride [Mass/Vol] 54 mg/dL Normal <150 M [facility] Comment on above: Result Comment: Triglyceride Guidelines: <150 Desirable 150-199 Borderline 200-499 High >499 Very high Based on AHA Guidelines for fasting triglyceride, March 2012. Performed By: #### C BC, LIPR, BMP, GLYHGB #### [address] [address] Tower Operator: Sanju Eli MD Cholesterol in VLDL [Mass/Vol] NOT REPORTED Normal 1-30 [facility] Comment on above: Performed By: #### C BC, LIPR, BMP, GLYHGB #### [address] [address] Tower Operator: Sanju Eli MD Troponinon 12-04-2018 Troponin I.cardiac [Mass/Vol] 6 ng/L Normal 0-22 [facility] Comment on above: Result Comment: High Sensitivity Troponin values cannot be compared with other Troponin methodologies. Patients with high levels of Biotin oral intake (i.e >5mg/day) may have falsely decreased Troponin levels. Samples collected within 8 hours of biotin intake may require additional information for diagnosis. Performed By: #### C DP, PT, TROPI, CMPX #### [address] [address] Tower Operator: Sanju Eli MD XR ABDOMEN (KUB) (SINGLE AP VIEW)on 12-04-2018 XR ABDOMEN (KUB) (SINGLE AP VIEW) EXAMINATION: ONE SUPINE XRAY VIEW(S) OF THE ABDOMEN 12/04/2018 7:01 am COMPARISON: None. HISTORY: ORDERING SYSTEM PROVIDED HISTORY: Check for intraabdominal stents/implants TECHNOLOGIST PROVIDED HISTORY: Check for intraabdominal stents/implants FINDINGS: No radiopaque foreign bodies project over the abdomen. Moderate stool throughout the colon. Cardiac leads overlie the upper abdomen. Radiodense material within the bladder compatible with recent intravenous contrast administration. Arthritic changes of bilateral hips. IMPRESSION: No radiopaque foreign bodies within the abdomen. Interpreted by: Jose Hoang MD Signed by: Jose Hoang MD 12/04/18 Final result Normal [facility] Basic Metabolic Profon 12-03 (cont.) Normal [facility] Comment on above: Result Comment: Aver age GFR for 30-39 years old: 107 mL/min/1.73sq m Chronic Kidney Disease: <60 mL/min/1.73sq m Kidney failure: <15 mL/min/1.73sq m eGFR calculated using average adult body mass. Additional eGFR calculator available at: http://www.[employer]/multiple_crcl_2012.htm Performed By: #### C SHIVA ZHENG BMP #### [address] [place] [address] Tower Operator: Alejandro aGrcia MD Anion gap [Moles/Vol] 14 mmol/L Normal 9-17 [facility] Comment on above: Performed By: #### C SHIVA ZHENG BMP #### [facility] [address] [place] [address] Tower Operator: Alejandro Garcia MD BUN/CRE Ratio 10 Normal 9-20 [facility] Comment on above: Performed By: #### C SHIVA ZHENG BMP #### [facility] [address] [place] [address] Tower Operator: Alejandro Garcia MD Calcium [Mass/Vol] 8.8 mg/dL Normal 8.6-10.4 [facility] Comment on above: Performed By: #### C DP, TROPI, BMP #### [facility] [address] [place], [place] [phone] Tower Operator: Alejandro Garcia MD Chloride [Moles/Vol] 102 mmol/L Normal 98-107 [facility] Comment on above: Performed By: #### C DP, TROPI, BMP #### [facility] [address] [place], [place] [phone] Tower Operator: Alejandro Garcia MD CO2 [Moles/Vol] 23 mmol/L Normal 20-31 [facility] Comment on above: Performed By: #### C DP, TROPI, BMP #### [facility] [address] [place], [place] [phone] Tower Operator: Alejandro Garcia MD Creatinine [Mass/Vol] 1.12 mg/dL Normal 0.70-1.20 [facility] Comment on above: Performed By: #### C DP, TROPI, BMP #### [facility] [address] [place], [place] [phone] Tower Operator: Alejandro Garcia MD GFR, Amer >60 Normal >60 [facility] Comment on above: Performed By: #### C DP, TROPI, BMP #### [facility] [address] [place], [place] [phone] Tower Operator: Alejandro Garcia MD GFR,non Amer >60 Normal >60 [facility] Comment on above: Performed By: #### C DP, TROPI, BMP #### [facility] [address] [place], [place] [phone] Tower Operator: Alejandro Garcia MD Glucose [Mass/Vol] 78 mg/dL Normal 70-99 [facility] Comment on above: Performed By: #### C DP, TROPI, BMP #### [facility] [address] [place], [place] [phone] Tower Operator: Alejandro Garcia MD Potassium [Moles/Vol] 3.5 mmol/L Low 3.7-5.3 [facility] Comment on above: Performed By: #### C DP, TROPI, BMP #### [facility] [address] [place], [place] [phone] Tower Operator: Alejandro Garcia MD Sodium [Moles/Vol] 139 mmol/L Normal 135-144 [facility] Comment on above: Performed By: #### C DP, TROPI, BMP #### [facility] [address] [place], [place] [phone] Tower Operator: Alejandro Garcia MD Staging: Normal [facility] Comment on above: Result Comment: Stag e 1: Some kidney damage normal GFR Stage 2: Mild kidney damage GFR 60-89 Stage 3: Moderate kidney damage GFR 30-59 Stage 4: Severe kidney damage GFR 15-29 Stage 5: Severe kidney damage GFR <15 ESRD - chronic treatment by dialysis or transplant Performed By: #### C DP, TROPI, BMP #### [address] [place], [place] [phone] Tower Operator: Alejandro Garica MD Urea nitrogen [Mass/Vol] 11 mg/dL Normal 6-20 [facility] Comment on above: Performed By: #### C DP, TROPI, BMP #### [address] [place] [address] Tower Operator: Alejandro Garcia MD CBC with Diffon 12-03-2018 Abs. Basophil <0.03 Normal 0.00-0.20 [facility] Comment on above: Performed By: #### C DP, PT, TROPI, CMPX #### [facility] [place] [address] Tower Operator: Sanju Eli MD Abs.Imm.Granulocyte <0.03 Normal 0.00-0.30 [facility] Comment on above: Performed By: #### C DP, PT, TROPI, CMPX #### [address] [address] Tower Operator: Sanju Eli MD Abs.Neutrophil (Seg) 2.31 k/uL Normal 1.50-8.10 [facility] Comment on above: Performed By: #### C DP, PT, TROPI, CMPX #### [place] [address] Tower Operator: Sanju Eli MD Basophils/100 WBC (Bld) 0 % Normal 0-2 [facility] Comment on above: Performed By: #### C DP, PT, TROPI, CMPX #### [place] [address] Tower Operator: Sanju Eli MD Eosinophils (Bld) [#/Vol] 0.17 10*3/uL Normal 0.00-0.44 [facility] Comment on above: Performed By: #### C DP, PT, TROPI, CMPX #### [place] [address] Tower Operator: Sanju Eli MD Eosinophils/100 WBC (Bld) 3 % Normal 1-4 [facility] Comment on above: Performed By: #### C DP, PT, TROPI, CMPX #### [place] [address] Tower Operator: Sanju Eli MD Immature granulocytes (Bld) [#/Vol] 0 % Normal 0 [facility] Comment on above: Performed By: #### C DP, PT, TROPI, CMPX #### [place] [address] Tower Operator: Sanju Eli MD Lymphocytes (Bld) [#/Vol] 2.02 10*3/uL Normal 1.10-3.70 [facility] Comment on above: Performed By: #### C DP, PT, TROPI, CMPX #### [address] [address] Tower Operator: Sanju Eli MD Lymphocytes/100 WBC (Bld) 39 % Normal 24-43 [facility] Comment on above: Performed By: #### C DP, PT, TROPI, CMPX #### [address] [address] Tower Operator: Sanju Eli MD Monocytes (Bld) [#/Vol] 0.64 10*3/uL Normal 0.10-1.20 [facility] Comment on above: Performed By: #### C DP, PT, TROPI, CMPX #### [address] [address] Tower Operator: Sanju Eli MD Monocytes/100 WBC (Bld) 12 % Normal 3-12 [facility] Comment on above: Performed By: #### C DP, PT, TROPI, CMPX #### [address] [address] Tower Operator: Snaju Eli MD Neutrophil (Seg) 46 % Normal 36-65 [facility] Comment on above: Performed By: #### C DP, PT, TROPI, CMPX #### [address] [address] Tower Operator: Sanju Eli MD RBC morphology finding Nom (Bld) ANISOCYTOSIS PRESENT Normal [facility] Comment on above: Performed By: #### C DP, PT, TROPI, CMPX #### [address] [address] Tower Operator: Sanju Eli MD Erythrocyte distribution width (RBC) [Ratio] 15.5 % High 11.8-14.4 [facility] Comment on above: Performed By: #### C DP, PT, TROPI, CMPX #### [address] [address] Tower Operator: Sanju Eli MD Hematocrit (Bld) [Volume fraction] 40.2 % Low 40.7-50.3 [facility] Comment on above: Performed By: #### C DP, PT, TROPI, CMPX #### [place] [address] Tower Operator: Sanju Eli MD Hemoglobin (Bld) [Mass/Vol] 12.8 g/dL Low 13.0-17.0 [facility] Comment on above: Performed By: #### C DP, PT, TROPI, CMPX #### [place] [address] Tower Operator: Sanju Eli MD MCH (RBC) [Entitic mass] 29.6 pg Normal 25.2-33.5 [facility] Comment on above: Performed By: #### C DP, PT, TROPI, CMPX #### [place] [address] Tower Operator: Sanju Eli MD MCHC (RBC) [Mass/Vol] 31.8 g/dL Normal 28.4-34.8 [facility] Comment on above: Performed By: #### C DP, PT, TROPI, CMPX #### [place] [address] Tower Operator: Sanju Eli MD MCV (RBC) [Entitic vol] 92.8 fL Normal 82.6-102.9 M [facility] Comment on above: Performed By: #### C DP, PT, TROPI, CMPX #### [place] [address] Tower Operator: Sanju Eli MD NRBC Automated 0.0 per 100 WBC Normal 0.0 [facility] Comment on above: Performed By: #### C DP, PT, TROPI, CMPX #### [address] [address] Tower Operator: Sanju Eli MD Platelet mean volume (Bld) [Entitic vol] 9.2 fL Normal 8.1-13.5 [facility] Comment on above: Performed By: #### C DP, PT, TROPI, CMPX #### [address] [address] Tower Operator: Sanju Eli MD Platelets (Bld) [#/Vol] 208 10*3/uL Normal 138-453 [facility] Comment on above: Performed By: #### C DP, PT, TROPI, CMPX #### [address] [address] Tower Operator: Sanju Eli MD RBC (Bld) [#/Vol] 4.33 10*6/uL Normal 4.21-5.77 [facility] Comment on above: Performed By: #### C DP, PT, TROPI, CMPX #### [address] [address] Tower Operator: Sanju Eli MD WBC (Bld) [#/Vol] 5.2 10*3/uL Normal 3.5-11.3 [facility] Comment on above: Performed By: #### C DP, PT, TROPI, CMPX #### [address] [address] Tower Operator: Sanju Eli MD Auto Diff Performed NOT REPORTED Normal [facility] Comment on above: Performed By: #### C DP, PT, TROPI, CMPX #### [address] [address] Tower Operator: Sanju Eli MD Platelets (Bld) [#/Vol] NOT REPORTED Normal [facility] Comment on above: Performed By: #### C DP, PT, TROPI, CMPX #### [place] [address] [place], [place] [phone] Tower Operator: Sanju Eli MD WBC Morphology NOT REPORTED Normal [facility] Comment on above: Performed By: #### C DP, PT, TROPI, CMPX #### [address] [id number] [place], [place] [phone] Tower Operator: Sanju Eli MD Abs. Basophil <0.03 Normal 0.00-0.20 [facility] Comment on above: Performed By: #### C DP, TROPI, BMP #### [address] [place] [address] Tower Operator: Alejandro Garcia MD Abs.Imm.Granulocyte <0.03 Normal 0.00-0.30 [facility] Comment on above: Performed By: #### C DP, TROPI, BMP #### [address] [place] [address] Tower Operator: Alejandro Garcia MD Abs.Neutrophil (Seg) 3.26 k/uL Normal 1.50-8.10 [facility] Comment on above: Performed By: #### C DP, TROPI, BMP #### [address] [place] [address] Tower Operator: Alejandro Garcia MD Basophils/100 WBC (Bld) 0 % Normal 0-2 [facility] Comment on above: Performed By: #### C DP, TROPI, BMP #### [address] [place] [phone] Tower Operator: Alejandro Garcia MD Eosinophils (Bld) [#/Vol] 0.13 10*3/uL Normal 0.00-0.44 [facility] Comment on above: Performed By: #### C DP, TROPI, BMP #### [address] [place] [phone] Tower Operator: Alejandro Garcia MD Eosinophils/100 WBC (Bld) 2 % Normal 1-4 [facility] Comment on above: Performed By: #### C SHIVA ZHENG, BMP #### [facility] [address] [place] [address] Tower Operator: Alejandro Garcia MD Erythrocyte distribution width (RBC) [Ratio] 15.2 % High 11.8-14.4 [facility] Comment on above: Performed By: #### C NORM [facility], BMP #### [facility] [address] [place], [place] [phone] Tower Operator: Alejandro Garcia MD Hematocrit (Bld) [Volume fraction] 39.0 % Low 40.7-50.3 [facility] Comment on above: Performed By: #### C SHIVA ZHENG, BMP #### [address] [place], [facility]83 Tower Operator: Alejandro Garcia MD Hemoglobin (Bld) [Mass/Vol] 12.8 g/dL Low 13.0-17.0 [facility] Comment on above: Performed By: #### C NORM [facility], BMP #### [address] [place] [phone] Tower Operator: Alejandro Garcia MD Immature granulocytes (Bld) [#/Vol] 0 % Normal 0 [facility] Comment on above: Performed By: #### C NORM [facility], BMP #### [facility] [address] [place], [place] [phone] Tower Operator: Alejandro Garcia MD Lymphocytes (Bld) [#/Vol] 1.93 10*3/uL Normal 1.10-3.70 [facility] Comment on above: Performed By: #### C MATTHEW ZHENGI, BMP #### [facility] [address] [place] [address] Tower Operator: Alejandro Garcia MD Lymphocytes/100 WBC (Bld) 33 % Normal 24-43 [facility] Comment on above: Performed By: #### C SHIVA ZHENG, BMP #### [facility] [address] [place] [address] Tower Operator: Alejandro Garcia MD MCH (RBC) [Entitic mass] 29.9 pg Normal 25.2-33.5 [facility] Comment on above: Performed By: #### C SHIVA ZHENG, BMP #### [facility] [address] [place] [address] Tower Operator: Alejandro Garcia MD MCHC (RBC) [Mass/Vol] 32.8 g/dL Normal 28.4-34.8 [facility] Comment on above: Performed By: #### C MATTHEW ZHENGI, BMP #### [address] [place], [place] [address] Tower Operator: Alejandro Garcia MD MCV (RBC) [Entitic vol] 91.1 fL Normal 82.6-102.9 [facility] Comment on above: Performed By: #### C NORM [facility], BMP #### [address] [place], [place] [address] Tower Operator: Alejandro Garcia MD Monocytes (Bld) [#/Vol] 0.57 10*3/uL Normal 0.10-1.20 [facility] Comment on above: Performed By: #### C SHIVA ZHENG, BMP #### [facility] [address] [place], [facility]83 Tower Operator: Alejandro Garcia MD Monocytes/100 WBC (Bld) 10 % Normal 3-12 [facility] Comment on above: Performed By: #### C NORM TROPI, BMP #### [facility] [address] [place], [facility]83 Tower Operator: Alejandro Garcia MD Neutrophil (Seg) 55 % Normal 36-65 [facility] Comment on above: Performed By: #### C NORM TROPI, BMP #### [facility] [address] [place], [place] [address] Tower Operator: Alejandro Garcia MD NRBC Automated 0.0 per 100 WBC Normal 0.0 [facility] Comment on above: Performed By: #### C MATTHEW ZHENGI, BMP #### [facility] [address] [place], [place] [address] Tower Operator: Alejandro Garcia MD Platelet mean volume (Bld) [Entitic vol] 9.0 fL Normal 8.1-13.5 [facility] Comment on above: Performed By: #### C MATTHEW ZHENGI, BMP #### [facility] [address] [place], [place] [address] Tower Operator: Alejandro Garcia MD Platelets (Bld) [#/Vol] 211 10*3/uL Normal 138-453 [facility] Comment on above: Performed By: #### C MATTHEW ZHENGI, BMP #### [facility] [address] [place], [place] [address] Tower Operator: Alejandro Garcia MD RBC (Bld) [#/Vol] 4.28 10*6/uL Normal 4.21-5.77 [facility] Comment on above: Performed By: #### C SHIVA ZHENG, BMP #### [facility] [address] [place], [place] [address] Tower Operator: Alejandro Garcia MD WBC (Bld) [#/Vol] 5.9 10*3/uL Normal 3.5-11.3 [facility] Comment on above: Performed By: #### C MATTHEW ZHENGI, BMP #### [facility] [address] [place], [facility]83 Tower Operator: Alejandro Garcia MD Auto Diff Performed NOT REPORTED Normal [facility] Comment on above: Performed By: #### C DP TROPI, BMP #### [facility] [address] [place], [place] [phone] Tower Operator: Alejandro Garcia MD Platelets (Bld) [#/Vol] NOT REPORTED Normal [facility] Comment on above: Performed By: #### C DP, TROPI, BMP #### [facility] [address] [place], [place] [phone] Tower Operator: Alejandro Garcia MD RBC morphology finding Nom (Bld) NOT REPORTED Normal [facility] Comment on above: Performed By: #### C DP, TROPI, BMP #### [facility] [address] [place], [place] [phone] Tower Operator: Alejandro Garcia MD WBC Morphology NOT REPORTED Normal [facility] Comment on above: Performed By: #### C DP, TROPI, BMP #### [facility] [address] [place], [place] [phone] Tower Operator: Alejandro Garcia MD CTA HEAD W WO CONTRASTon CTA HEAD W WO CONTRAST EXAMINATION: CTA OF THE HEAD WITHOUT AND WITH CONTRAST; CTA OF THE NECK 12/03/2018 10:08 am; 12/03/2018 9:46 am: TECHNIQUE: CTA of the head/brain was performed without and with the administration of intravenous contrast. Multiplanar reformatted images are provided for review. MIP images are provided for review. Dose modulation, iterative reconstruction, and/or weight based adjustment of the mA/kV was utilized to reduce the radiation dose to as low as reasonably achievable.; CTA of the neck was performed with the administration of intravenous contrast. Multiplanar reformatted images are provided for review. MIP images are provided for review. Stenosis of the internal carotid arteries measured using NASCET criteria. Dose modulation, iterative reconstruction, and/or weight based adjustment of the mA/kV was utilized to reduce the radiation dose to as low as reasonably achievable. Noncontrast CT of the head with reconstructed 2-D images are also provided for review. COMPARISON: None. HISTORY: ORDERING SYSTEM PROVIDED HISTORY: paresthesia, weakness RUE RLE; ORDERING SYSTEM PROVIDED HISTORY: stroke Initial evaluation. FINDINGS: CT HEAD: Evaluation is partially limited due to extensive mottle artifact. BRAIN/VENTRICLES: No acute intracranial hemorrhage or extraaxial fluid collection. Ivy-white differentiation is maintained. No evidence of mass, mass effect or midline shift. No evidence of hydrocephalus. ORBITS: The visualized portion of the orbits demonstrate no acute abnormality. SINUSES: The visualized paranasal sinuses and mastoid air cells demonstrate no acute abnormality. SOFT TISSUES/SKULL: No acute abnormality of the visualized skull or soft tissues. CTA NECK: AORTIC ARCH/ARCH VESSELS: There is a normal branch pattern of the aortic arch. No significant stenosis is seen of the innominate artery or subclavian arteries. CAROTID ARTERIES: The common carotid arteries are normal in appearance without evidence of a flow limiting stenosis. The internal carotid arteries are normal in appearance without evidence of a flow limiting stenosis by NASCET criteria. No dissection or arterial injury is seen. VERTEBRAL ARTERIES: The vertebral arteries both arise from the subclavian arteries and are normal in caliber without evidence of flow limiting stenosis or dissection. SOFT TISSUES: No focal consolidation is seen within the visualized portion of the lungs. There is mild bronchial wall thickening involving the right upper lobe. Borderline enlarged bilateral level 2 lymph nodes are seen, which is nonspecific. No acute abnormality identified within the visualized superior mediastinum. Please note, the venous structures within the superior mediastinum are not well evaluated. BONES: No acute osseous abnormality. CTA HEAD: ANTERIOR CIRCULATION: The internal carotid arteries are normal in course and caliber without focal stenosis. The anterior cerebral and middle cerebral arteries demonstrate no focal stenosis. POSTERIOR CIRCULATION: The posterior cerebral arteries demonstrate no focal stenosis. The vertebral and basilar arteries appear unremarkable. IMPRESSION: 1. No acute intracranial abnormality. Findings were discussed with Dr. Martinez on 12/03/2018 at 10:25 am. 2. Unremarkable CTA of the head and neck. Interpreted by: Ruy Sears MD Signed by: Ruy Sears MD 12/03/18 Final result Normal [facility] CTA NECK W WO CONTRASTon CTA NECK W WO CONTRAST EXAMINATION: CTA OF THE HEAD WITHOUT AND WITH CONTRAST; CTA OF THE NECK 12/03/2018 10:08 am; 12/03/2018 9:46 am: TECHNIQUE: CTA of the head/brain was performed without and with the administration of intravenous contrast. Multiplanar reformatted images are provided for review. MIP images are provided for review. Dose modulation, iterative reconstruction, and/or weight based adjustment of the mA/kV was utilized to reduce the radiation dose to as low as reasonably achievable.; CTA of the neck was performed with the administration of intravenous contrast. Multiplanar reformatted images are provided for review. MIP images are provided for review. Stenosis of the internal carotid arteries measured using NASCET criteria. Dose modulation, iterative reconstruction, and/or weight based adjustment of the mA/kV was utilized to reduce the radiation dose to as low as reasonably achievable. Noncontrast CT of the head with reconstructed 2-D images are also provided for review. COMPARISON: None. HISTORY: ORDERING SYSTEM PROVIDED HISTORY: paresthesia, weakness RUE RLE; ORDERING SYSTEM PROVIDED HISTORY: stroke Initial evaluation. FINDINGS: CT HEAD: Evaluation is partially limited due to extensive mottle artifact. BRAIN/VENTRICLES: No acute intracranial hemorrhage or extraaxial fluid collection. Ivy-white differentiation is maintained. No evidence of mass, mass effect or midline shift. No evidence of hydrocephalus. ORBITS: The visualized portion of the orbits demonstrate no acute abnormality. SINUSES: The visualized paranasal sinuses and mastoid air cells demonstrate no acute abnormality. SOFT TISSUES/SKULL: No acute abnormality of the visualized skull or soft tissues. CTA NECK: AORTIC ARCH/ARCH VESSELS: There is a normal branch pattern of the aortic arch. No significant stenosis is seen of the innominate artery or subclavian arteries. CAROTID ARTERIES: The common carotid arteries are normal in appearance without evidence of a flow limiting stenosis. The internal carotid arteries are normal in appearance without evidence of a flow limiting stenosis by NASCET criteria. No dissection or arterial injury is seen. VERTEBRAL ARTERIES: The vertebral arteries both arise from the subclavian arteries and are normal in caliber without evidence of flow limiting stenosis or dissection. SOFT TISSUES: No focal consolidation is seen within the visualized portion of the lungs. There is mild bronchial wall thickening involving the right upper lobe. Borderline enlarged bilateral level 2 lymph nodes are seen, which is nonspecific. No acute abnormality identified within the visualized superior mediastinum. Please note, the venous structures within the superior mediastinum are not well evaluated. BONES: No acute osseous abnormality. CTA HEAD: ANTERIOR CIRCULATION: The internal carotid arteries are normal in course and caliber without focal stenosis. The anterior cerebral and middle cerebral arteries demonstrate no focal stenosis. POSTERIOR CIRCULATION: The posterior cerebral arteries demonstrate no focal stenosis. The vertebral and basilar arteries appear unremarkable. IMPRESSION: 1. No acute intracranial abnormality. Findings were discussed with Dr. Martinez on 12/03/2018 at 10:25 am. 2. Unremarkable CTA of the head and neck. Interpreted by: Ruy Sears MD Signed by: Ruy Sears MD 12/03/18 Final result Normal [facility] Comp Metabolic Pr/rfx MGon 0 12-03-2018 BUN/CRE Ratio NOT REPORTED Normal 03-04 [facility] Comment on above: Performed By: #### C DP, PT, TROPI, CMPX #### [address] [address] Tower Operator: Sanju Eli MD Staging: NOT REPORTED Normal [facility] Comment on above: Performed By: #### C DP, PT, TROPI, CMPX #### [address] [address] Tower Operator: Sanju Eli MD PTon 12-03-2018 INR Coag (PPP) [Relative time] 1.1 {INR} Normal [facility] Comment on above: Result Comment: Therapeutic Range: Moderate Anticoagulant Intensity: INR = 2.0-3.0 High Anticoagulant Intensity: INR = 2.5-3.5 Performed By: #### C DP, PT, TROPI, CMPX #### [address] [address] Tower Operator: Sanju Eli MD PT Coag (PPP) [Time] 11.8 s Normal 9.0-12.0 [facility] Comment on above: Performed By: #### C DP, PT, TROPI, CMPX #### [address] [address] Tower Operator: Sanju Eli MD Tox Scr, Bld, EDon 9 Toxic Tricyclic Sc,Bl Negative Normal NEG [facility] Comment on above: Performed By: #### E DTOX #### [address] [address] Tower Operator: Sanju Eli MD [facility] [address] [place] [address] [place]. [place], [place] [id number] Tower Operator: Alejandro Garcia MD Ethanol [Mass/Vol] 49 mg/dL High <10 [facility] Comment on above: Performed By: #### E DTOX #### [facility] [address] [place] [address] Tower Operator: Sanju Eli MD [facility] [address] [place] [address] Dr. [place], [place] [id number] Tower Operator: Alejandro Garcia MD Ethanol percent 0.049 % High <0.010 [facility] Comment on above: Performed By: #### E DTOX #### [facility] [address] [place] [address] Tower Operator: Sanju Eli MD [address] [place] [id number] Tower Operator: Alejandro Garcia MD Acetaminophen [Mass/Vol] <5 Low 10-30 [facility] Comment on above: Performed By: #### E DTOX #### [facility] [address] [place] [address] Tower Operator: Sanju Eli MD [address] [place] [id number] Tower Operator: Alejandro Garcia MD Salicylate <1 Low 3-10 [facility] Comment on above: Performed By: #### E DTOX #### [facility] [address] [place] [address] Tower Operator: Sanju Eli MD [address] [place] [id number] Tower Operator: Alejandro Garcia MD Troponinon 12-03-2018 Troponin I.cardiac [Mass/Vol] NOT REPORTED Normal [facility] Comment on above: Performed By: #### C DP, PT, TROPI, CMPX #### [facility] [address] [place] [address] Tower Operator: Sanju Eli MD Troponin I.cardiac [Mass/Vol] ng/mL Normal <0.03 [facility] Comment on above: Result Comment: Trop onin T results cannot be compared to Troponin-I results. Performed By: #### C DP, TROPI, BMP #### [facility] [address] [place] [address] Tower Operator: Alejandro Garcia MD Troponin I.cardiac [Mass/Vol] Normal [facility] Comment on above: Result Comment: Refe rence Range: <0.03 Within reference range. 0.03-0.09 Possible myocardial damage. Repeat at appropriate intervals to rule out chronic elevation. >= 0.10 Indicative of myocardial damage. Patients with high levels of Biotin oral intake (i.e >5mg/day) may have falsely decreased Troponin T levels. Samples collected within 8 hours of biotin intake may require additional information for diagnosis. Performed By: #### C DP, TROPI, BMP #### [facility] [address] [place] [address] Tower Operator: Alejandro Garcia MD Troponin I.cardiac [Mass/Vol] NOT REPORTED Normal 0-22 [facility] Comment on above: Performed By: #### C DP, TROPI, BMP #### [facility] [address] [place] [address] Tower Operator: Alejandro Garcia MD XR CHEST PORTABLEon 12-04-19 19 XR CHEST PORTABLE EXAMINATION: ONE XRAY VIEW OF THE CHEST 12/03/2018 9:42 pm COMPARISON: Earlier same day HISTORY: ORDERING SYSTEM PROVIDED HISTORY: CVA TECHNOLOGIST PROVIDED HISTORY: CVA Ordering Physician Provided Reason for Exam: c/o headache,right side numbness and tingling FINDINGS: Persistent mild right pleural effusion with associated basilar atelectasis. Otherwise lung johnson appear clear with no overt edema, consolidation or pneumothorax. Normal heart size. Stable mild left hilar prominence. Osseous structures grossly intact. IMPRESSION: 1. Persistent mild right pleural effusion with associated basilar atelectasis. 2. Redemonstration of mild left hilar prominence which may be again further assessed by contrast-enhanced chest CT. Interpreted by: Claudia Mcclain MD Signed by: Claudia Mcclain MD 12/03/18 Final result Normal [facility] XR CHEST PORTABLE EXAMINATION: ONE XRAY VIEW OF THE CHEST 12/03/2018 9:14 am COMPARISON: None. HISTORY: ORDERING SYSTEM PROVIDED HISTORY: CP TECHNOLOGIST PROVIDED HISTORY: CP FINDINGS: The cardiac and mediastinal contours appear within normal limits. Right basilar opacity and blunting of the right costophrenic angle is noted consistent with an effusion. A small left effusion is also present. Relative prominence in the right suprahilar region is noted. Mild vascular prominence is present with mild septal thickening. No pneumothorax identified. No acute osseous abnormality appreciated. IMPRESSION: Findings of mild interstitial edema are noted with small effusions, right greater than left. Relative prominence in the right suprahilar region, while this may represent vascular prominence, localized airspace disease can also have this appearance. Further evaluation with contrast-enhanced chest CT is recommended when clinically appropriate. Interpreted by: Ovidio Lyn MD Signed by: Ovidio Lyn MD 12/03/18 Final result Normal [facility] Vital Signs Date Time Vital Sign Value Performing Clinician Facility 01-19-2025 11:02-0400 Body height 180.3 cm Valdemar Garcia MD Work Phone: [facility] 01-19-2025 11:02-0400 Body mass index (BMI) [Ratio] 31.7 kg/m2 Valdemar Garcia MD Work Phone: [facility] 01-19-2025 11:02-0400 Body temperature 97.7 [degF] Valdemar Garcia MD Work Phone: [facility] 01-19-2025 11:02-0400 Body weight 103.06 kg Valdemar Garcia MD Work Phone: [facility] 01-19-2025 11:02-0400 Diastolic blood pressure 90 mm[Hg] Valdemar Garcia MD Work Phone: [facility] 01-19-2025 11:02-0400 Heart rate 75 /min Valdemar Garcia MD Work Phone: [facility] 01-19-2025 11:02-0400 Respiratory rate 18 /min Valdemar Garcia MD Work Phone: [facility] 01-19-2025 11:02-0400 SaO2% (BldA) [Mass fraction] 97 % Valdemar Garcia MD Work Phone: [facility] 01-19-2025 11:02-0400 Systolic blood pressure 150 mm[Hg] Valdemar Garcia MD Work Phone: [facility] 01-10-2025 10:58-0400 Body height 185.4 cm Clemente Justice MD Work Phone: [facility] 01-10-2025 10:58-0400 Body mass index (BMI) [Ratio] 29.87 kg/m2 Clemente Justice MD Work Phone: [facility] 01-10-2025 10:58-0400 Body weight 102.69 kg Clemente Justice MD Work Phone: [facility] 12-15-2024 12:34-0400 Body height 185.4 cm Valdemar Garcia MD Work Phone: [facility] 12-15-2024 12:34-0400 Body mass index (BMI) [Ratio] 29.19 kg/m2 Valdemar Garcia MD Work Phone: [facility] 12-15-2024 12:34-0400 Body temperature 97.9 [degF] Valdemar Garcia MD Work Phone: [facility] 12-15-2024 12:34-0400 Body weight 100.34 kg Valdemar Garcia MD Work Phone: [facility] 12-15-2024 12:34-0400 Diastolic blood pressure 74 mm[Hg] Valdemar Garcia MD Work Phone: [facility] 12-15-2024 12:34-0400 Heart rate 95 /min Valdemar Garcia MD Work Phone: [facility] 12-15-2024 12:34-0400 Respiratory rate 16 /min Valdemar Garcia MD Work Phone: [facility] 12-15-2024 12:34-0400 SaO2% (BldA) [Mass fraction] 97 % Valdemar Garcia MD Work Phone: [facility] 12-15-2024 12:34-0400 Systolic blood pressure 143 mm[Hg] Valdemar Garcia MD Work Phone: [facility] 11-11-2024 08:43-0400 Body height 185.4 cm Valdemar Garcia MD Work Phone: [facility] 11-11-2024 08:43-0400 Body mass index (BMI) [Ratio] 27.9 kg/m2 Valdemar Garcia MD Work Phone: [facility] 11-11-2024 08:43-0400 Body temperature 97.5 [degF] Valdemar Garcia MD Work Phone: [facility] 11-11-2024 08:43-0400 Body weight 95.89 kg Valdemar Garcia MD Work Phone: [facility] 11-11-2024 08:43-0400 Diastolic blood pressure 72 mm[Hg] Valdemar Garcia MD Work Phone: [facility] 11-11-2024 08:43-0400 Heart rate 98 /min Valdemar Garcia MD Work Phone: [facility] 11-11-2024 08:43-0400 Respiratory rate 16 /min Valdemar Garcia MD Work Phone: [facility] 11-11-2024 08:43-0400 SaO2% (BldA) [Mass fraction] 97 % Valdemar Garcia MD Work Phone: [facility] 11-11-2024 08:43-0400 Systolic blood pressure 130 mm[Hg] Valdemar Garcia MD Work Phone: [facility] 10-20-2024 15:36-0400 Body height 185.4 cm Shanthi Lu APRN-WAIST FITTER Work Phone: [facility] 10-20-2024 15:36-0400 Body mass index (BMI) [Ratio] 27.24 kg/m2 Shanthi Lu SPRIGGER-WAIST FITTER Work Phone: [facility] 10-20-2024 15:36-0400 Body temperature 97.9 [degF] Shanthi Lu APRN-WAIST FITTER Work Phone: [facility] 10-20-2024 15:36-0400 Body weight 93.62 kg Shanthi Lu APRN-WAIST FITTER Work Phone: [facility] 10-20-2024 15:36-0400 Diastolic blood pressure 60 mm[Hg] Shanthi Lu APRN-WAIST FITTER Work Phone: [facility] 10-20-2024 15:36-0400 Heart rate 110 /min Shanthi Lu APRN-WAIST FITTER Work Phone: [facility] 10-20-2024 15:36-0400 Respiratory rate 20 /min Shanthi Lu APRN-WAIST FITTER Work Phone: [facility] 10-20-2024 15:36-0400 SaO2% (BldA) [Mass fraction] 97 % Shanthi Lu APRN-WAIST FITTER Work Phone: [facility] 10-20-2024 15:36-0400 Systolic blood pressure 100 mm[Hg] Shanthi Lu SPRIGGER-WAIST FITTER Work Phone: [facility] 07-25-2024 13:05-0500 Body height 185.4 cm Shanthi Lu APRN-WAIST FITTER Work Phone: [facility] 07-25-2024 13:05-0500 Body mass index (BMI) [Ratio] 23.41 kg/m2 Shanthi Lu SPRIGGER-WAIST FITTER Work Phone: [facility] 07-25-2024 13:05-0500 Body temperature 97.9 [degF] Shanthi AN Work Phone: [facility] 07-25-2024 13:05-0500 Body weight 80.47 kg Shanthi AN Work Phone: [facility] 07-25-2024 13:05-0500 Diastolic blood pressure 60 mm[Hg] Shanthi Lu APRN-HERACLIO Work Phone: [facility] 07-25-2024 13:05-0500 Heart rate 85 /min Shanthi AN Work Phone: [facility] 07-25-2024 13:05-0500 Respiratory rate 18 /min Shanthi Lu APRN-HERACLIO Work Phone: [facility] 07-25-2024 13:05-0500 SaO2% (BldA) [Mass fraction] 96 % Shanthi AN Work Phone: [facility] 07-25-2024 13:05-0500 Systolic blood pressure 110 mm[Hg] Shanthi AN Work Phone: [facility] 02-01-2024 14:190400 Body height 185.[address] [facility] [address] [facility] 02-01-2024 14:190400 Body mass index (BMI) [Ratio] 29.99 kg/m2 [facility] [address] [place] [address] 02-01-2024 14:190400 Body temperature 98.2 [degF] [facility] 02-01-2024 14:190400 Body weight 103.[address] [facility] [address] [facility] 02-01-2024 14:19-0400 Diastolic blood pressure 90 mm[Hg] [facility] 02-01-2024 14:19-0400 Heart rate 92 /min [facility] 02-01-2024 14:19-0400 Respiratory rate 16 /min [facility] 02-01-2024 14:19-0400 SaO2% (BldA) [Mass fraction] 96 % [address] 02-01-2024 14:19-0400 Systolic blood pressure 141 mm[Hg] [facility] [address] [place] [address] 01-25-2024 10:27-0400 Body height 182.9 cm Maile Burr MD Work Phone: [facility] 01-25-2024 10:27-0400 Body mass index (BMI) [Ratio] 30.98 kg/m2 Maile Burr MD Work Phone: [facility] 01-25-2024 10:27-0400 Body temperature 98.2 [degF] Maile Burr MD Work Phone: [facility] 01-25-2024 10:27-0400 Body weight 103.6 kg Maile Burr MD Work Phone: [facility] 01-25-2024 10:27-0400 Respiratory rate 18 /min Maile Burr MD Work Phone: [facility] 01-22-2024 15:14-0400 Body height 185.4 cm Simran [employer] SPRIGGER.WAIST FITTER Work Phone: [facility] 01-22-2024 15:14-0400 Body mass index (BMI) [Ratio] 29.72 kg/m2 [employer] SPRIGGER.WAIST FITTER Work Phone: [facility] 01-22-2024 15:14-0400 Body temperature 97.11 [degF] Simran Bundridge SPRIGGER.WAIST FITTER Work Phone: [facility] 01-22-2024 15:14-0400 Body weight 102.15 kg Simran [employer] SPRIGGER.WAIST FITTER Work Phone: [facility] 01-22-2024 15:14-0400 Diastolic blood pressure 91 mm[Hg] Simran Bundridge SPRIGGER.WAIST FITTER Work Phone: [facility] 01-22-2024 15:14-0400 Heart rate 99 /min Simran Bundridge SPRIGGER.WAIST FITTER Work Phone: [facility] 01-22-2024 15:14-0400 Respiratory rate 16 /min Simran Bundridge SPRIGGER.WAIST FITTER Work Phone: [facility] 01-22-2024 15:14-0400 SaO2% (BldA) [Mass fraction] 95 % Simran Bundridge SPRIGGER.WAIST FITTER Work Phone: [facility] 01-22-2024 15:14-0400 Systolic blood pressure 131 mm[Hg] Simran Bundridge SPRIGGER.WAIST FITTER Work Phone: [facility] 12-18-2023 14:19-0400 Body mass index (BMI) [Ratio] 27.96 kg/m2 Rich Hill MD Work Phone: [facility] 12-18-2023 14:19-0400 Body temperature 97.81 [degF] Rich Hill MD Work Phone: [facility] 12-18-2023 14:19-0400 Body weight 96.1 kg Rich Hill MD Work Phone: [facility] 12-18-2023 14:19-0400 Diastolic blood pressure 79 mm[Hg] Rich Hill MD Work Phone: [facility] 12-18-2023 14:19-0400 Heart rate 67 /min Rich Hill MD Work Phone: [facility] 12-18-2023 14:19-0400 Respiratory rate 16 /min Rich Hill MD Work Phone: [facility] 12-18-2023 14:19-0400 SaO2% (BldA) [Mass fraction] 100 % Rich Hill MD Work Phone: [facility] 12-18-2023 14:19-0400 Systolic blood pressure 125 mm[Hg] Rich Hill MD Work Phone: [facility] 12-15-2023 13:51-0400 Body height 184.5 cm Shanthi Lu SPRIGGER-WAIST FITTER Work Phone: [facility] 12-15-2023 13:51-0400 Body mass index (BMI) [Ratio] 27.98 kg/m2 Shanthi Lu SPRIGGER-WAIST FITTER Work Phone: [facility] 12-15-2023 13:51-0400 Body temperature 98.1 [degF] Shanthi Lu SPRIGGER-WAIST FITTER Work Phone: [facility] 12-15-2023 13:51-0400 Body weight 95.25 kg Shanthi Lu SPRIGGER-WAIST FITTER Work Phone: [facility] 12-15-2023 13:51-0400 Diastolic blood pressure 72 mm[Hg] Shanthi Lu SPRIGGER-WAIST FITTER Work Phone: [facility] 12-15-2023 13:51-0400 Heart rate 86 /min Shanthi Lu SPRIGGER-WAIST FITTER Work Phone: [facility] 12-15-2023 13:51-0400 Respiratory rate 20 /min Shanthi Lu SPRIGGER-WAIST FITTER Work Phone: [facility] 12-15-2023 13:51-0400 SaO2% (BldA) [Mass fraction] 97 % Shanthi Lu SPRIGGER-WAIST FITTER Work Phone: [facility] 12-15-2023 13:51-0400 Systolic blood pressure 122 mm[Hg] Shanthi Lu SPRIGGER-WAIST FITTER Work Phone: [facility] 12-09-2023 09:43-0400 Body mass index (BMI) [Ratio] 28.51 kg/m2 Tobi Plata MD Work Phone: [facility] 12-09-2023 09:43-0400 Body temperature 98.29 [degF] Tobi Plata MD Work Phone: [facility] 12-09-2023 09:43-0400 Body weight 98 kg Tobi Plata MD Work Phone: [facility] 12-09-2023 09:43-0400 Diastolic blood pressure 82 mm[Hg] Tobi Plata MD Work Phone: [facility] 12-09-2023 09:43-0400 Heart rate 84 /min Tobi Plata MD Work Phone: [facility] 12-09-2023 09:43-0400 Respiratory rate 20 /min Tobi Plata MD Work Phone: [facility] 12-09-2023 09:43-0400 SaO2% (BldA) [Mass fraction] 98 % Tobi Plata MD Work Phone: [facility] Comment on above: RA 12-09-2023 09:43-0400 Systolic blood pressure 131 mm[Hg] Tobi Plata MD Work Phone: [facility] 10-19-2023 14:10-0400 Diastolic blood pressure 78 mm[Hg] Shanthi Lu SPRIGGER-WAIST FITTER Work Phone: [facility] 10-19-2023 14:10-0400 Systolic blood pressure 120 mm[Hg] Shanthi Lu SPRIGGER-WAIST FITTER Work Phone: [facility] 10-19-2023 14:08-0400 Body height 184.5 cm Shanthi Lu SPRIGGER-WAIST FITTER Work Phone: [facility] 10-19-2023 14:08-0400 Body mass index (BMI) [Ratio] 27.92 kg/m2 Shanthi Lu SPRIGGER-WAIST FITTER Work Phone: [facility] 10-19-2023 14:08-0400 Body temperature 97.5 [degF] Shanthi Lu APRN-WAIST FITTER Work Phone: [facility] 10-19-2023 14:08-0400 Body weight 95.03 kg Shanthi Lu APRN-WAIST FITTER Work Phone: [facility] 10-19-2023 14:08-0400 Heart rate 87 /min Shanthi Lu APRN-WAIST FITTER Work Phone: [facility] 10-19-2023 14:08-0400 Respiratory rate 24 /min Shanthi Lu APRN-WAIST FITTER Work Phone: [facility] 10-19-2023 14:08-0400 SaO2% (BldA) [Mass fraction] 94 % Shanthi Lu APRN-WAIST FITTER Work Phone: [facility] 08-17-2023 13:30-0500 Body height 185.4 cm Rich Hill MD Work Phone: [facility] 08-17-2023 13:30-0500 Body temperature 97.7 [degF] Rich Hill MD Work Phone: [facility] 08-17-2023 13:30-0500 Body weight 88.1 kg Rich Hill MD Work Phone: [facility] 08-17-2023 13:30-0500 Diastolic blood pressure 61 mm[Hg] Rich Hill MD Work Phone: [facility] 08-17-2023 13:30-0500 Heart rate 65 /min Rich Hill MD Work Phone: [facility] 08-17-2023 13:30-0500 Respiratory rate 16 /min Rich Hill MD Work Phone: [facility] 08-17-2023 13:30-0500 SaO2% (BldA) [Mass fraction] 100 % Rich Hill MD Work Phone: [facility] 08-17-2023 13:30-0500 Systolic blood pressure 116 mm[Hg] Rich Hill MD Work Phone: [facility] 08-11-2023 14:41-0500 Body height 185.4 cm Simran Bundridge SPRIGGER.WAIST FITTER Work Phone: [facility] 08-11-2023 14:41-0500 Body temperature 97.9 [degF] Simran Bundridge SPRIGGER.WAIST FITTER Work Phone: [facility] 08-11-2023 14:41-0500 Body weight 84.2 kg Simran Bundridge SPRIGGER.WAIST FITTER Work Phone: [facility] 08-11-2023 14:41-0500 Diastolic blood pressure 71 mm[Hg] Simran Bundridge SPRIGGER.WAIST FITTER Work Phone: [facility] 08-11-2023 14:41-0500 Heart rate 67 /min Simran Bundridge SPRIGGER.WAIST FITTER Work Phone: [facility] 08-11-2023 14:41-0500 Respiratory rate 16 /min Simran Bundridge SPRIGGER.WAIST FITTER Work Phone: [facility] 08-11-2023 14:41-0500 SaO2% (BldA) [Mass fraction] 100 % Simran Bundridge SPRIGGER.WAIST FITTER Work Phone: [facility] 08-11-2023 14:41-0500 Systolic blood pressure 129 mm[Hg] Simran Bundridge SPRIGGER.WAIST FITTER Work Phone: [facility] 07-29-2023 15:11-0500 Body height 185.4 cm Rich Hill MD Work Phone: [facility] 07-29-2023 15:11-0500 Body temperature 97 [degF] Rich Hill MD Work Phone: [facility] 07-29-2023 15:11-0500 Body weight 87.3 kg Rich Hill MD Work Phone: [facility] 07-29-2023 15:11-0500 Diastolic blood pressure 67 mm[Hg] Rich Hill MD Work Phone: [facility] 07-29-2023 15:11-0500 Heart rate 59 /min Rich Hill MD Work Phone: [facility] 07-29-2023 15:11-0500 Respiratory rate 16 /min Rich Hill MD Work Phone: [facility] 07-29-2023 15:11-0500 SaO2% (BldA) [Mass fraction] 99 % Rich Hill MD Work Phone: [facility] 07-29-2023 15:11-0500 Systolic blood pressure 125 mm[Hg] Rich Hill MD Work Phone: [facility] Encounters Encounter Date Encounter Type Care Provider Facility Start: 01-19-2025 End: 01-19-2025 Documentation procedure Che King RN [facility] - Medical Oncology Start: 01-19-2025 End: 01-19-2025 Office outpatient visit 25 minutes Valdemar Garcia MD Work Phone: [facility]cology Comment on above: 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) Start: 01-10-2025 End: 01-10-2025 [facility] Start: 12-30-2024 End: 12-30-2024 Orders Only Altagracia Rand [facility] - Medical Oncology Comment on above: 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); Abnormal findings on imaging test; 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) Start: 12-22-2024 End: 12-22-2024 ambulatory [facility] Start: 12-15-2024 End: 12-15-2024 Documentation procedure Che [facility] - Medical Oncology Start: 12-15-2024 End: 12-15-2024 Office outpatient visit 25 minutes Valdemar Garcia MD Work Phone: Jovita [facility] - Medical Oncology Comment on above: 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) (Primary Dx); 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) Start: 12-15-2024 End: 12-15-2024 ambulatory ALDRICH [facility] Start: 12-02-2024 End: 12-02-2024 ambulatory [facility] Start: 11-25-2024 End: 11-25-2024 ambulatory [facility] Start: 11-11-2024 End: 11-11-2024 Office outpatient new 60 minutes Valdemar Garcia MD Work Phone: Jovita [facility] - Medical Oncology Comment on above: 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) Start: 11-01-2024 End: 11-02-2024 Telephone encounter Lea Steinberg, A Department of [facility] Comment on above: Referral Start: 10-26-2024 End: 10-26-2024 Orders Only Shanthi Lu SPRIGGER-WAIST FITTER Work Phone: [facility] - [facility] Comment on above: 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); 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) Start: 10-20-2024 End: 10-20-2024 Periodic preventive med est patient 40-64yrs Shanthi Lu SPRIGGER-WAIST FITTER Work Phone: [facility] - [facility] Comment on above: Chronic midline low back pain with sciatica, sciatica laterality unspecified (Primary Dx); Right rotator cuff tear arthropathy Start: 10-20-2024 End: 10-20-2024 ambulatory [facility] Start: 09-26-2024 End: 09-26-2024 Telephone encounter Scanning Provider External [facility] Medical Oncology Start: 09-14-2024 End: 09-14-2024 Telephone encounter Rich Hill MD Work Phone: Hematology/Oncology Comment on above: Records faxed Start: 09-13-2024 End: 09-13-2024 Documentation procedure Bina S [facility]as [facility] Medical On[facility] Start: 08-12-2024 End: 08-12-2024 ambulatory [facility] Comment on above: Toxoplasmosis; Chorioretinitis of both eyes Start: 08-12-2024 End: 08-12-2024 Office outpatient new 45 minutes Fortunato Balderrama MD Work Phone: [facility] Comment on above: 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); Toxoplasmosis; Chorioretinitis of both eyes Start: 08-12-2024 End: 08-12-2024 Ophthalmology Imaging [facility] Comment on above: Other specified reti nal disorders Start: 07-25-2024 End: 07-25-2024 Office outpatient visit 15 minutes Shanthi Angelika Lu SPRIGGER-WAIST FITTER Work Phone: [facility] - [facility] Comment on above: Drug-induced erectil e dysfunction (Primary Dx) Start: 07-25-2024 End: 07-25-2024 ambulatory [facility] Start: 03-28-2024 End: 03-28-2024 Refill Jael Dez ASSOCIATE DOCTOR [facility] Comment on above: Chronic pain syndrom e; Chronic left hip pain Start: 02-16-2024 End: 02-18-2024 Telephone encounter Rich Hill MD Work Phone: Hematology/Oncology Comment on above: Lab Orders Start: 02-02-2024 End: 02-02-2024 Evaluation and management of inpatient [facility] Start: 02-02-2024 End: 02-02-2024 Evaluation and management of inpatient [facility] Start: 02-01-2024 End: 02-01-2024 Patient encounter procedure [facility] Provider Zackary Nino [facility]Ad[facility] Comment on above: Pre-op testing (Prim dorota Dx) Start: 02-01-2024 End: 02-01-2024 Patient encounter status [facility] Start: 02-01-2024 End: 02-01-2024 [facility] Start: 02-01-2024 Encounter for other preprocedural examination [facility] Start: 01-27-2024 End: 01-27-2024 Telephone encounter Maile Burr MD Work Phone: [facility] Start: 01-25-2024 Telephone encounter Marialuisa Portillo RN [employer] [facility] Start: 01-25-2024 End: 01-25-2024 Office outpatient new 45 minutes Rehab Aminah DIEGO Work Phone: [facility] Comment on above: 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); Abnormal findings on imaging test; Adenotonsillar hypertrophy; Tonsillitis Start: 01-25-2024 End: 01-25-2024 [facility] Start: 01-22-2024 End: 01-22-2024 ambulatory SIMRAN J LESLIE Facility:[facility] Start: 01-22-2024 End: 01-22-2024 Patient encounter procedure Simran J Leslie SPRIGGER.WAIST FITTER Work Phone: Palliative Medicine Comment on above: Palliative care by s pecialist (Primary Dx); Neoplasm related pain; Opioid contract exists; Osteoarthritis of spine, unspecified spinal osteoarthritis complication status, unspecified spinal region; 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); Drug-induced constipation Refill Request Start: 01-22-2024 Telephone encounter Teetee navarro [facility] Work Phone: [facility] Comment on above: Medication Authoriza tion (Buprenorphine patches) Start: 01-21-2024 End: 01-21-2024 Telephone encounter Shanthi Lu SPRIGGER-WAIST FITTER Work Phone: [facility] Internal Medicine - Family Medicine Start: 01-18-2024 End: 01-26-2024 Refill Jess Askew CMA [facility] Comment on above: Chronic pain syndrom e; Chronic left hip pain Start: 01-13-2024 ambulatory SHANTHI LU [facility] Start: 01-04-2024 End: 01-04-2024 ambulatory RICH LIZ Facility:[facility] Start: 01-04-2024 End: 01-04-2024 Subsequent hospital visit by physician Arrival Time Radiology Work Phone: [facility] Comment on above: 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) [C81.08] Start: 12-31-2023 End: 12-31-2023 Telephone encounter Katja Colin RN [facility] - ENT Start: 12-21-2023 Telephone encounter Rich mccurdy MD Work Phone: [facility] Comment on above: Results Future Appointment Start: 12-18-2023 End: 12-18-2023 ambulatory RICH HILL Facility:[facility] Start: 12-18-2023 End: 12-18-2023 Office outpatient visit 25 minutes Rich Hill MD Work Phone: Hematology/Oncology Comment on above: 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) (Primary Dx); 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HCC); Abnormal finding on imaging Start: 12-15-2023 End: 12-15-2023 Office outpatient visit 15 minutes Shanthi Lu SPRIGGER-WAIST FITTER Work Phone: [facility] Internal [facility] - Family Medicine Comment on above: Chronic left hip vaishnavi n (Primary Dx); Chronic pain syndrome; Muscle spasm Start: 12-09-2023 Nursing evaluation o f patient and report Gerald Sapp RN Psychiatry Comment on above: Encounter for pallia tive care (Primary Dx) Start: 12-09-2023 End: 12-09-2023 Patient encounter procedure Tobi Plata MD Work Phone: Psychiatry Comment on above: Psychoactive substan ce-induced psychosis (HCC) (Primary Dx); Cocaine use disorder, severe, in early remission (HCC); Marijuana use disorder in remission; Homicidal ideation Start: 12-09-2023 End: 12-09-2023 ambulatory TOBI PLATA Facility:[facility] Start: 12-03-2023 Telephone encounter Cassie Greene RN Hematology/Oncology Start: 10-29-2023 End: 11-02-2023 Refill Britt Pelletier MD Work Phone: [facility] Family [facility] Start: 10-19-2023 End: 10-19-2023 ambulatory SHANTHIDilma LU [facility] Start: 10-19-2023 End: 10-19-2023 Office outpatient visit 25 minutes Shanthi Lu SPRIGGER-WAIST FITTER Work Phone: [facility] Internal Medicine - Family Medicine Comment on above: Chronic pain syndrom e (Primary Dx); Chronic left hip pain; Muscle spasm; Attention deficit hyperactivity disorder (ADHD), unspecified ADHD type Start: 10-19-2023 End: 10-20-2023 Telephone encounter Jael Garces CMA [facility] Internal [facility] - Family Medicine Start: 10-09-2023 End: 10-09-2023 Patient encounter procedure Simran Nelson SPRIGGER.WAIST FITTER Work Phone: Palliative Medicine Comment on above: NO SHOW (Primary Dx) Start: 09-29-2023 Telephone encounter Ana Hu liative Medicine Comment on above: Initial Consult Start: 09-28-2023 Orders Only Simran dong SPRIGGER.WAIST FITTER Work Phone: [facility] Comment on above: Anxiety (Primary Dx) ; Auditory hallucinations Start: 09-24-2023 ambulatory Tobi Plata MD Work Phone: Psychiatry Start: 08-17-2023 End: 08-17-2023 Office outpatient visit 25 minutes Rich Hill MD Work Phone: Hematology/Oncology Comment on above: 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) (Primary Dx); Tonsillitis; 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HCC); Abnormal finding on imaging Start: 08-12-2023 Telephone encounter Marialuisa Portillo RN [facility] Palliative Medicine Comment on above: Insurance Authorizat ion Start: 08-12-2023 End: 08-12-2023 Subsequent hospital visit by physician Arrival Time Radiology Work Phone: [facility]iology [facility] Comment on above: 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] Start: 08-11-2023 End: 08-11-2023 Refill Simran Angelika Nelson APRN.CNP Work Phone: [facility] Comment on above: Refill Request Palliative care by s pecialist (Primary Dx); 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); Neoplasm related pain; Drug-induced constipation; Opioid contract exists; Post-traumatic osteoarthritis of multiple joints; Insomnia due to medical condition; Anxiety; Auditory hallucinations Start: 07-29-2023 End: 07-29-2023 Office outpatient new 60 minutes Rich Hill MD Work Phone: Hematology/Oncology Comment on above: 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) (Primary Dx); Cancer associated pain; Cigarette smoker one half pack a day or less; s/p 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HCC) Start: 07-27-2023 Chart abstracting Rich perera MD Work Phone: Hematology/Oncology Start: 09-24-2021 End: 06-12-2022 ambulatory [place] Start: 05-25-2021 End: 05-25-2021 Emergency department patient visit ESTEBAN Morales [facility] Start: 05-18-2021 End: 05-22-2021 Evaluation and management of inpatient DEANNA PARILAYLA [facility] Start: 12-03-2018 End: 12-06-2018 Evaluation and management of inpatient IQRA ADDISON [facility] Start: 12-03-2018 End: 12-03-2018 Emergency department patient visit RODRICK Mills [facility] Start: 07-13-2018 [facility]mission to [facility] Valdemar Apple MD Work Phone: [facility] Start: 07-13-2018 ambulatory Valdemar burden MD Work Phone: [facility] [id number] Procedures Date Procedure Procedure Detail Performing Clinician Start: 12-15-2024 Follow-up visit Follow-up VALDEMAR GARCIA Start: 10-20-2024 Adult depression scr eening assessment [facility] Work Phone: Start: 08-12-2024 Fluorescein angrph w/multiframe i&r uni/bi Fortunato Balderrama MD Work Phone: Start: 08-12-2024 End: 08-12-2024 Computerized ophthalmic imaging retina Fortunato Balderrama MD Work Phone: Start: 02-01-2024 Ecg routine ecg w/le ast 12 lds trcg only w/o i&r Fortunato Grady MD Work Phone: Start: 01-18-[address] atten uation skull base mid-thigh Scanning Provider External Start: 01-04-[address] atten uation skull base mid-thigh Rich Hill MD Work Phone: Start: 01-04-2024 End: 01-04-2024 Blood count complete auto&auto difrntl wbc Rich Hill MD Work Phone: Start: 12-15-2023 Adult depression scr eening assessment [facility] Work Phone: Start: 10-19-2023 Adult depression scr eening assessment [facility] Work Phone: Start: 08-12-[address] attenuation whole body Rich Hill MD Work Phone: Start: 08-12-2023 End: 08-12-2023 Blood count complete auto&auto difrntl wbc Rich Hill MD Work Phone: Start: 08-12-2023 HEP REMOTE PANEL BL Tatiana Hill MD Work Phone: Start: 08-12-2023 Hepatitis c antibody Vi kings Hill MD Work Phone: Start: 08-12-2023 Iaad ia hepatitis b surface antigen Rich Hill MD Work Phone: Start: 12-06-2018 DISCHARGE PATIENT IQRA CHIRRI Start: 12-06-2018 Mri brain brain stem w/o contrast material IQRA CHIRRI Start: 12-06-2018 IP CONSULT TO SOCIAL WORK IQRA CHIRRI Start: 12-06-2018 Echo tthrc r-t 2d w/wom-mode compl spec&colr d IQRA CHIRRI Start: 12-06-2018 INITIATE OXYGEN THER APY PROTOCOL IQRA CHIRRI Start: 12-05-2018 Antinuclear antibodies jacky IQRA CHIRRI Start: 12-05-2018 Beta 2 glycoprotein i antibody each IQRA CHIRRI Start: 12-05-2018 C-reactive protein DEVANTE CHIRRI Start: 12-05-2018 Clotting factor v acg/proaccelerin labile factor IQRA CHIRRI Start: 12-05-2018 Clotting inhibitors protein c antigen IQRA CHIRRI Start: 12-05-2018 Clotting inhibitors protein s total IQRA CHIRRI Start: 12-05-2018 Complement total hemolytic IQRA CHIRRI Start: 12-05-2018 Cryoglobulin qualitative/semi-quantitati ve IQRA CHIRRI Start: 12-05-2018 Fluorescent nonnfct agt antb screen ea antibody IQRA CHIRRI Start: 12-05-2018 Sedimentation rate r bc automated IQRA CHIRRI Start: 12-05-2018 Thromboplastin inhib ition tissue IQRA CHIRRI Start: 12-05-2018 F2 gene analysis 202 10g >a variant IQRA CHIRRI Start: 12-05-2018 Molecule isolate nucleic IQRA CHIRRI Start: 12-05-2018 MTHFR MUTATION IQRA CH IRRI Start: 12-05-2018 PROTHROMBIN GENE MUTATION IQRA CHIRRI Start: 12-05-2018 Mri spinal canal cer vical w/o contrast matrl IQRA CHIRRI Start: 12-05-2018 INITIATE OXYGEN THER APY PROTOCOL IQRA CHIRRI Start: 12-04-2018 Drug screen class list a IQRA CHIRRI Start: 12-04-2018 Mri brain brain stem w/o contrast material IQRA CHIRRI Start: 12-04-2018 INITIATE OXYGEN THER APY PROTOCOL IQRA CHIRRI Start: 12-04-2018 Radiologic exam abdo men 1 view IQRA CHIRRI Start: 12-04-2018 Basic metabolic pane l calcium total IQRA CHIRRI Start: 12-04-2018 Blood count complete automated IQRA CHIRRI Start: 12-04-2018 Hemoglobin glycosylated a1c IQRA CHIRRI Start: 12-04-2018 Lipid panel IQRA CHIR RI Start: 12-04-2018 Lipid 1996 panel - S amina or Plasma Rich Hill MD Work Phone: Start: 12-04-2018 DIET GENERAL IQRA CHIR RI Start: 12-04-2018 INITIATE OXYGEN THER APY PROTOCOL IQRA CHIRRI Start: 12-04-2018 OT EVAL AND TREAT IQRA CHIRRI Start: 12-04-2018 PT EVAL AND TREAT IQRA CHIRRI Start: 12-04-2018 HEART SPECIALIST EVAL AND TREAT DEVANTE L CHIRRI Start: 12-04-2018 ADVANCE DIET TOLE RATED (NURSING COMMUNICATION) IQRA CHIRRI Start: 12-04-2018 NIHSS IQRA CHIR RI Start: 12-04-2018 NURSING SWALLOW ASSESSMENT IQRA CHIRRI Start: 12-04-2018 PROVIDE PATIENT EDUC ATION MATERIALS IQRA CHIRRI Start: 12-04-2018 TELEMETRY MONITORING JA MAL CHIRRI Start: 12-04-2018 VITAL SIGNS IQRA CHIR RI Start: 12-03-2018 Radiologic exam ches t single view IQRA CHIRRI Start: 12-03-2018 PATIENT STATUS (DIRECT) IQRA CHIRRI Start: 12-03-2018 Ecg routine ecg w/le ast 12 lds w/i&r IQRA CHIRRI Start: 12-03-2018 EKG REPORT IQRA CHIR RI Start: 12-03-2018 IP CONSULT TO NEUROLOGY IQRA CHIRRI Start: 12-03-2018 Gluc bld gluc mntr d ev cleared fda spec home use IQRA CHIRRI Start: 12-03-2018 INITIATE OXYGEN THER APY PROTOCOL IQRA CHIRRI Start: 12-03-2018 NEURO/VASCULAR CHECKS J AMAL CHIRRI Start: 12-03-2018 NURSING SWALLOW ASSESSMENT IQRA CHIRRI Start: 12-03-2018 Assay of troponin quantitative IQRA CHIRRI Start: 12-03-2018 Blood count complete auto&auto difrntl wbc IQRA CHIRRI Start: 12-03-2018 Prothrombin time IQRA CHIRRI Start: 12-03-2018 Ct angiography head w/contrast/noncontrast RODRICK MARTINEZ Start: 12-03-2018 Ct angiography neck w/contrast/noncontrast RODRICK MARTINEZ Start: 12-03-2018 Ct thorax w/contrast material RODRICK MARTINEZ Start: 12-03-2018 Assay of troponin quantitative RODRICK MARTINEZ Start: 12-03-2018 Basic metabolic pane l calcium total RODRICK MARTINEZ Start: 12-03-2018 Blood count complete auto&auto difrntl wbc RODRICK MARTINEZ Start: 12-03-2018 Drug tst prsmv instr mnt chem analyzers pr date RODRICK MARTINEZ Start: 12-03-2018 Radiologic exam ches t single view RODRICK MARTINEZ Start: 12-03-2018 Ecg routine ecg w/le ast 12 lds w/i&r RODRICK MARTINEZ Start: 12-03-2018 INSERT PERIPHERAL IV AL EXMILTON MARTINEZ Start: 12-03-2018 TELEMETRY MONITORING AL EXMILTON MARTINEZ Start: 12-03-2018 VITAL SIGNS RODRICK MARTINEZ Plan of Treatment Date Care Activity Detail Author Start: 01-03-2031 DTaP,Tdap and Td Vaccines (6 - Td or Tdap) DTaP,Tdap and Td Vaccines (6 - Td or Tdap) [facility] Start: 01-03-2031 Urine microalbumin profile [facility] Start: 12-20-2028 Urine microalbumin profile DTAP,TDAP,TD (4 - Td or Tdap) [facility] Start: 01-03-2027 Diabetes Screening Diabetes Screening [facility] Start: 01-16-2026 Adult BMI Screening Adult BMI Screening [facility] Start: 01-16-2026 Tobacco Screening Tobacco Screening [facility] Start: 01-11-2026 Tobacco Screening Tobacco Screening [facility] Start: 01-10-2026 Adult BMI Screening Adult BMI Screening [facility] Start: 12-15-2025 Adult BMI Screening Adult BMI Screening [facility] Start: 12-15-2025 Tobacco Screening Tobacco Screening [facility] Start: 11-11-2025 Adult BMI Screening Adult BMI Screening [facility] Start: 11-11-2025 Tobacco Screening Tobacco Screening [facility] Start: 10-20-2025 Adult BMI Follow Up Plan Adult BMI Follow Up Plan [facility] Start: 10-20-2025 Adult BMI Screening Adult BMI Screening [facility] Start: 10-20-2025 Depression Screening Depression Screening [facility] Start: 10-20-2025 Tobacco Screening Tobacco Screening [facility] Start: 08-12-2025 Tobacco Screening Tobacco Screening [facility] Start: 07-25-2025 Adult BMI Follow Up Plan Adult BMI Follow Up Plan [facility] Start: 07-25-2025 Adult BMI Screening Adult BMI Screening [facility] Start: 07-25-2025 Tobacco Screening Tobacco Screening [facility] Start: 02-13-2025 Influenza vaccination Influenza Vaccine [facility] Start: 02-01-2025 Adult BMI Screening Adult BMI Screening [facility] Start: 02-01-2025 Tobacco Screening Tobacco Screening [facility] Start: 01-30-2025 End: 01-30-2025 Patient encounter procedure 01/30/2025 11:00 AM EDT Office Visit [facility] General Surgery [address] [place] [address] Jennifer Bender APRN-[facility] [address] [place] [address] [facility] Surgery Start: 01-25-2025 Tobacco Screening Tobacco Screening [facility] Start: 01-24-2025 Adult BMI Screening Adult BMI Screening [facility] Start: 01-19-2025 End: 01-19-2025 Patient encounter procedure 01/19/2025 11:15 AM EDT Office Visit Jovita Moreno [facility] - Medical Oncology [address] [place] [phone] Valdemar Garcia MD [address] [facility] - Medical Oncology Start: 01-16-2025 End: 01-16-2025 Admission to same day surgery center 01/16/2025 12:15 PM EDT - 01/16/2025 1:15 PM EDT Surgery [facility] [place] - Surgery [address] [place] [address] Clemente Justice MD [address] [place] [address] BIOPSY LYMPH NODE INGUINAL [85793 (CPT )] [facility] Comment on above: BIOPSY LYMPH NODE INGUINAL [67531 (CPT ) ] Start: 01-16-2025 End: 01-16-2025 Bx/exc lymph node open superficial BIOPSY LYMPH NODE INGUINAL right groin lymph node lymphocyte 01/16/2025 12:15 PM EDT [place] SURGERY Start: 01-16-2025 Subsequent hospital visit by physician 01/16/2025 12:15 PM EDT Hospital Encounter [facility] Surgery [address] [place] [address] Clemente Justice MD [address] [place] [address] [facility] Start: 01-11-2025 End: 01-11-2025 Patient encounter procedure 01/11/2025 12:45 PM EDT Procedure visit [facility] - Pre Admit [address] [place] [address] [facility] - Pre Admit Start: 12-15-2024 End: 12-15-2025 Guidance for biopsy of Lymph node IR biopsy lymph node Imaging Routine 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 - Medical Oncology [address] [place] [phone] Valdemar Garcia MD [address] [place] [address] [address] [place], [place] [id number] Jovita L Giorgi [facility] - Medical Oncology Start: 12-14-2024 Adult BMI Follow Up Plan Adult BMI Follow Up Plan [facility] Start: 12-14-2024 Adult BMI Screening Adult BMI Screening [facility] Start: 12-14-2024 Depression Screening Depression Screening [facility] Start: 12-14-2024 Tobacco Screening Tobacco Screening [facility] Start: 11-25-2024 End: 11-25-2024 Patient encounter procedure 11/25/2024 9:30 AM EDT Appointment [facility] Jovita Moreno 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 Comment on above: Expected: 11/11/2024, Expires: Start: 11-11-2024 End: 11-11-2024 Patient encounter procedure 11/11/2024 8:45 AM EDT Office Visit Jovita L Giorgi [facility] - Medical Oncology [address] [place] [phone] Valdemar Garcia MD [address] [place] [address] Jovita Rand [facility] - Medical Oncology Start: 10-18-2024 Adult BMI Follow Up Plan Adult BMI Follow Up Plan [facility] Start: 10-18-2024 Adult BMI Screening Adult BMI Screening [facility] Start: 10-18-2024 Depression Screening Depression Screening [facility] Start: 10-18-2024 Tobacco Screening Tobacco Screening [facility] Start: 09-23-2024 End: 09-23-2024 Patient encounter procedure 09/23/2024 1:00 PM EDT Office Visit [facility] Medical Oncology [address] [facility] [address] [place] [address] [place] [address] [place] [address], [address] [place] [address] [facility] Medical Oncology Start: 08-18-2024 End: 08-18-2024 Patient encounter procedure 08/18/2024 1:00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 CHEST TUBE INSERTION x3 LYMPH NODE BIOPSY x3-4 times PORT A CATH REMOVAL x2 FAMILY HISTORY: Family History Problem Relation Age of Onset Cancer Mother Diabetes Mother Cancer Father Anesthesia problems Neg Hx SOCIAL HISTORY: The patient reports that he does not currently use alcohol. He reports that he has been smoking cigarettes. He has never used smokeless tobacco. He reports that he does not currently use drugs after having used the following drugs: Marijuana and Cocaine. ALLERGIES: Allergies Allergen Reactions Amoxicillin Sulfamethoxazole Hives Contact Metal Agent Itching and Rash MEDICATIONS: Current Outpatient Medications: aspirin 81 mg, Take 1 tablet (81 mg total) by mouth in the morning. Last dose 01/30/24., Disp: , Rfl: cyclobenzaprine (FLEXERIL) 10 mg tablet, Take 1 tablet (10 mg total) by mouth 2 (two) times a day as needed for muscle spasms., Disp: 40 tablet, Rfl: 2 gabapentin (NEURONTIN) 300 mg capsule, Take 1 capsule (300 mg total) by mouth 3 (three) times a day., Disp: 90 capsule, Rfl: 2 ibuprofen (MOTRIN) 800 mg tablet, Take 1 tablet (800 mg total) by mouth every 8 (eight) hours as needed for pain., Disp: 60 tablet, Rfl: 0 lidocaine (LIDODERM) 5 %, Place 1 patch on the skin daily. Remove & Discard patch within 12 hours, Disp: 30 patch, Rfl: 2 REVIEW OF SYSTEMS: Review of Systems Constitutional: Negative. Negative for activity change and appetite change. HENT: Negative for congestion, ear discharge, ear pain, sore throat and trouble swallowing. Eyes: Positive for visual disturbance (glasses). Negative for pain and discharge. Respiratory: Negative for apnea, cough, shortness of breath, wheezing and stridor. Cardiovascular: Negative for chest pain and palpitations. Gastrointestinal: Negative for nausea, vomiting, abdominal pain, diarrhea and abdominal distention. Endocrine: Negative. Genitourinary: Negative for dysuria, urgency and flank pain. Musculoskeletal: Negative for myalgias, joint swelling and arthralgias. Skin: Negative for rash and wound. Allergic/Immunologic: Negative. Neurological: Negative for dizziness, seizures, syncope, light-headedness and headaches. Psychiatric/Behavioral: Negative for agitation. VITAL SIGNS: BP 141/90 Pulse 92 Temp 36.8 C (98.2 F) (Tympanic) Resp 16 Ht 185.4 cm (6' 1 ) Wt 103.1 kg (227 lb 4.7 oz) SpO2 96% BMI 29.99 kg/m PHYSICAL EXAM: Physical Exam Vitals reviewed. Constitutional: General: He is not in acute distress. Appearance: Normal appearance. He is well-developed. He is not ill-appearing or toxic-appearing. HENT: Head: Normocephalic. Mouth/Throat: Lips: [place]. Eyes: General: Lids are normal. Conjunctiva/sclera: Conjunctivae normal. Cardiovascular: Rate and Rhythm: Normal rate and regular rhythm. Pulses: Normal pulses. Radial pulses are 2+ on the right side and 2+ on the left side. Posterior tibial pulses are 2+ on the right side and 2+ on the left side. Heart sounds: Normal heart sounds, S1 normal and S2 normal. No murmur heard. Pulmonary: Effort: Pulmonary effort is normal. No respiratory distress. Breath sounds: Normal breath sounds. Abdominal: General: Bowel sounds are normal. Palpations: Abdomen is soft. Tenderness: There is no abdominal tenderness. Musculoskeletal: Right lower le+ Edema present. Left lower leg: No edema. Skin: General: Skin is warm and dry. Neurological: Mental Status: He is alert and oriented to person, place, and time. Psychiatric: Behavior: Behavior is cooperative. RECENT LABS: Lab Results Component Value Date WBC 6.9 11/29/2022 HGB 13.3 11/29/2022 HCT 37.7 (L) 11/29/2022 PLT 192 11/29/2022 INR 1.7 (H) 07/11/2018 PTT 38 (H) 07/11/2018 SODIUM 134 11/29/2022 K 3.9 11/29/2022 CL 107 11/29/2022 CO2 23 11/29/2022 CALCIUM 8.5 11/29/2022 ALKPHOS 88 11/29/2022 ALBUMIN 4.3 11/29/2022 GLU 106 (H) 11/29/2022 ALT 40 11/29/2022 AST 30 11/29/2022 CREATININE 1.29 (H) 11/29/2022 BUN 18 11/29/2022 GFR >60 01/11/2019 GFR >60 01/11/2019 EGFR 71 11/29/2022 *Please note that labs listed above are the most recent lab values available in [facility] at the time of the office visit and additional labs may have been drawn since that time. 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 JUVE Fitzpatrick 02/01/24 [address] documented [address] encounter [facility] 02-01-2024 Instructions Priya Patterson RN - 02/01/2024 1:45 PM EDT Your surgery/procedure is scheduled at [facility] [place] on 02/01 Arrival Time as instructed by Dr Burr [facility] Address: [address] [place] [address]. [place], [place] [address] [address] in [address] Parking lot located on [facility]. Report to the Entrance B. Check in at the information desk the surgery. The waiting room located on the second floor. If you have any questions prior to surgery, please call Pre-Admission Clinic at [phone] between 7:30 am and 4:30 pm Thursday through Thursday. If you have questions the morning of surgery, please call the Pre-op Department at [phone]. Notify your SURGEON if you develop any illness such as a cold, cough, fever, sore throat, vomiting or are hospitalized between now and your surgery. CONTINUE TO TAKE YOUR MEDICATIONS PRESCRIBED. DO NOT STOP YOUR PRESCRIBED MEDICATIONS UNLESS DIRECTED BY YOUR PRESCRIBING PHYSICIAN Take the following medications the morning of surgery with a sip of water: gabapentin Diabetic or weight loss medications: STOP n/a Take inhalers as prescribed the morning of surgery. . Blood thinners: Medications such as Coumadin, Heparin, Aspirin, Plavix, Eliquis, Pradaxa) Please contact your physician regarding a stop/hold date for these medications. Diabetics: If you take insulin, contact your prescribing doctor for instructions on how to manage this the night before and the morning of surgery. Non-steriodal Anti-Inflammatory Drugs (NSAIDS) ibuprofen- Stop 3 days prior to surgery unless otherwise directed by your surgeon. Vitamins/Herbal Products: You may continue to take your prescribed vitamins such as potassium, iron, vitamin B, vitamin C, or multivitamin unless specifically instructed by your surgeon to stop. STOP taking all herbal products/teas one week prior to your surgery. Marijuana: Stop marijuana 72 hours prior to surgery, stop CBD oil 48 hours prior to surgery. If you have been given bowel prep instructions by your surgeon, please call the surgeon's office with any questions about these instructions. What do I do the day of Surgery? Age 2 through adult - Stop all solids by midnight, You may have clear liquids up to 2 hours before surgery, unless otherwise instructed by your surgeon. Clear liquids are: water, sports drinks such as Gatorade or G2, or apple juice. You may NOT have: tube feedings, dairy products, alcoholic beverages, orange juice, or any liquids with solids or pulp in it. shower with an antibacterial soap the morning of your surgery. In order to help prevent infection post-operatively, you may be asked to use a CHG mouthwash when you arrive to the Pre-op area. Your nurse will provide instruction the morning of. What do I need to do to prepare for surgery? If you will be going home the same day as your surgery, arrange for an adult over [address] Riding in a bus or taxi by yourself is not permitted. You should not smoke or drink alcohol 24 hours before your surgery. Alcohol thins the blood and may cause bleeding problems during surgery. Smoking increases the risk of breathing problems after surgery. Do not use lotions, creams, powders, perfume, make up, cologne or after-shaves day of surgery. Remove ALL jewelry including wedding rings, body piercings (including dermal piercings ,hair extensions that contain metal, nail lithuanian, make-up, and contact lens. You may brush your teeth the morning of surgery, but do not swallow the water. Wear your dentures and partial plates to the hospital (no adhesive). Shower the night the before. What should I bring to the hospital? Eyeglass or contact lens case If you will be spending the night, please bring personal care items and leave them in the car until you are taken to your room after surgery. Leave ALL valuables at home. If any of these instructions conflict with those you received from the surgeon, please seek clarification from your surgeon's office. DEEP BREATHING EXERCISES This exercise helps promote good air exchange and helps to prevent pneumonia after surgery. Breathe in slowly and deeply through the nose. Hold your breath for a few seconds and then exhale slowly through the mouth. Repeat this three times and then cough.Coughing helps to clear your lungs. If you have had a surgery with an incision into your abdomen or chest, press gently against your incision with a pillow or a folded blanket when you cough. Please be aware - it may not be li to cough following some types of surgeries involving the eyes, ears, sinuses and throat. Always follow your doctor's instructions. LEG EXERCISE These exercises help promote good circulation and help to prevent blood clots after surgery. Point your toes to the ceiling and then point them to the wall. Do this slowly about 15-20 times. You may also move your feet in circles. Do the exercise that is most comfortable for you. If you have had surgery involving your shoulder or arm, we recommend you move your fingers. PRACTICING We ask that you begin practicing these exercises before your surgery. After surgery try to do both exercises at least every 2 hours during the day and early evening. SURGICAL SITE INFECTION PREVENTION What is a Surgical Site Infection? Infection can happen to the area of the body where surgery is done. This is called a surgical site infection (SSI). A SSI does not happen very often. Can SSIs be treated? Antibiotics are used to treat SSI. Some patients may need another surgery to treat the infection. The doctor will discuss treatment options with you. What are some of the things that hospitals are doing to prevent SSIs? Soap and water or alcohol hand rub are used before and after caring for each patient. Special soap is used to clean surgery workers hands and arms just before the surgery. Masks, gowns, gloves and hair covers are worn during the surgery to keep the area clean. Hair in the surgery area may be removed with clippers (not razors). A special soap that kills germs is used to clean the skin at the surgery site. Antibiotics may be given before the surgery starts. What can you do to prevent SSIs? Before surgery: You may be asked to shower or bathe with a special soap that kills germs the night before and the day of surgery. Use the soap as you were told. If you smoke, stop or cut down. Ask your doctor about ways to quit. Do not shave near where you will have surgery. Shaving can irritate the skin and make it easier to get and infection. After surgery: Be sure that the doctors and nurses clean their hands before and after touching you. Be sure your family and friends clean their hands before and after visiting you. Do not be afraid to remind them. * Care for your wound at home as told by your doctor or nurse * Call your doctor right away if you have fever, redness, increased pain, or drainage at the surgery site. Further questions? Contact the doctor, nurse or the Infection Prevention and Control department if you have any questions. PATIENT RIGHTS AND RESPONSIBILITIES As a patient at [facility], you have the right to: Receive medical care and be informed of who is taking care of you Be treated with dignity and respect Have a family member/medical center representative of choice and your physician notified of your admission Receive information and actively participate in decisions about your care and treatment Refuse care, treatment and services Decide who may provide your support and speak for you Access alevism and spiritual services Participate in ethical issues and questions about your care Receive private and confidential care Have appropriate assessment and management of your pain Know guest visitation restrictions or limitations Have an advance directive Access protective services Consent or refuse to participate in research studies or production or recordings, films or other images Have resolution of your complaints Receive information of hospital charges and payment methods Patient/patient medical center representative responsibilities are to: Provide information about health status to facilitate care, treatment and services Follow the treatment, plan, keep appointments and speak up when you do not understand the plan Respect the rights of other patients and healthcare personnel Follow organizational rules and regulations that support quality care and a safe environment Fulfill financial obligations as promptly as possible documented in this encounter [facility] 02-01-2024 Miscellaneous Notes Attempted to make reminder phone call for PAT apoointment. Unable to leave a message, voice mailbox not set up. documented in this encounter [facility] 02-01-2024 Nurse Note Attempted to make reminder phone call for PAT apoointment. Unable to leave a message, voice mailbox not set up. [facility] 01-27-2024 Miscellaneous Notes Surgery Scheduling Request 01/27/24 Patient: Joselyn Carnes : 1980 Surgical Procedure(s): biopsy of adenoids and tonsils, possible tonsillectomy and adenoidectomy Side(s):bilateral Anesthesia: General Surgery Time: 60 minutes Facility Preference: [facility] if possible Post Op Destination: Outpatient Estimated length of stay: n/a Preop Anesthesia Appointment?: Yes Lab Testing?: No Medical Clearance Required?: Yes by production metal sprayer. If not seeing a production metal sprayer then PCP Does medical clearance include perioperative management of anticoagulants? No Which anticoagulants need to be addressed? N/a Special Equipment? No When should patient follow up after surgery? 2-4 weeks with Aminah Additional Comments: schedule within 2 weeks documented in this encounter [facility] 01-27-2024 Telephone encounter Note Surgery Scheduling Request 01/27/24 Patient: Joselyn Carnes : 1980 Surgical Procedure(s): biopsy of adenoids and tonsils, possible tonsillectomy and adenoidectomy Side(s):bilateral Anesthesia: General Surgery Time: 60 minutes Facility Preference: [facility] if possible Post Op Destination: Outpatient Estimated length of stay: n/a Preop Anesthesia Appointment?: Yes Lab Testing?: No Medical Clearance Required?: Yes by production metal sprayer. If not seeing a production metal sprayer then PCP Does medical clearance include perioperative management of anticoagulants? No Which anticoagulants need to be addressed? N/a Special Equipment? No When should patient follow up after surgery? 2-4 weeks with Aminah Additional Comments: schedule within [address] [facility] 01-25-2024 Telephone encounter Note Prior Authorization Documentation Prior authorization requested for: MEDICATION Butran 5 mcg TD patch Submitted via phone call to [facility] department. Spoke Annemarie in [place] department. Insurance Company Name: [employer]. Pharmacy Name: [facility] Authorization approval PA # [id number] and awaiting determination. Dates of Approval: from ? to ? Patient Assistance Needed: No Time Spent 25 minutes Marialuisa Portillo RN January 25, 2024 [facility] 01-25-2024 Miscellaneous Notes Prior Authorization Documentation Prior authorization requested for: MEDICATION Butran 5 mcg TD patch Submitted via phone call to [facility] department. Spoke Annemarie in [place] department. Insurance Company Name: [employer]. Pharmacy Name: [facility] and Authorization approval PA # [id number] and awaiting determination. Dates of Approval: from ? to ? Patient Assistance Needed: No Time Spent 25 minutes Marialuisa Portillo RN January 25, 2024 documented in this encounter [facility] 01-25-2024 Telephone encounter Note Yes we will be doing an appeal, thanks [facility] 01-25-2024 Miscellaneous Notes Yes we will be doing an appeal, thanks Insurance DENIED butrans patches - he must have a failure, contraindication or intolerance to Tramadol ER. Allie - please advise if you will be completing an appeal. Thank you, Martina Stephenson RPh [facility]ulatory Pharmacy Prior Authorization Note Provider Intervention Required?: No- Pharmacy completed on your behalf. Rx Plan: [facility]: Buprenorphine patches Cover My Meds Ly: [id number] Determination: Denied PA Denied because: Step therapy requirement Prior Authorization/Case #: [id number] Prior Authorization Expiration: na Time to PA Submission in CMM: 15 min Time to PA Determination in CMM: 1 day Additional Information: must try Tramadol ER For questions relating to this submission, please contact [facility] at [phone] documented in this encounter [facility] 01-25-2024 Telephone encounter Note Insurance DENIED butrans patches - he must have a failure, contraindication or intolerance to Tramadol ER. Allie - please advise if you will be completing an appeal. Thank you, Martina Stephenson RPh [facility] Work Phone: 01-25-2024 History of Present illness Narrative Images from the original note were not included. [facility] [address] [facility] [address] [place] [address] [place] [id number] SUBJECTIVE: Patient ID ([id number]): Joselyn Carnes is a 43 y.o. male presents today for Chief Complaint Patient presents with Sore Throat nodular lymphocyte HPI: Joselyn Is presenting today after PET scan showed uptake in adenoids and tonsils. Patient has been diagnosed with Hodgkin's lymphoma in the past, initial diagnosis about 8 years ago. Underwent treatment and was lost to follow up twice. PET scan done earlier this year showed uptake in tonsils and adenoids. Patient denies unintentional weight loss, his partner endorses him gaining weight. Patient has night sweats. No fevers, chills. He endorses allergic rhinitis and constant drainage from his nose. He denies any tonsillar infections. Denies sore throat or difficulty swallowing. Denies trouble breathing. HISTORY: Past Medical History: Diagnosis Date Blood clot in vein 2020 Cancer ([facility]) Lymphoma [facility] hodgkins Past Surgical History: Procedure Laterality Date APPENDECTOMY CENTRAL VENOUS CATHETER TUNNELED INSERTION SINGLE LUMEN right femoral CHEST TUBE INSERTION x3 LYMPH NODE BIOPSY x3-4 times PORT A CATH REMOVAL x2 Family History Problem Relation Age of Onset Cancer Mother Diabetes Mother Cancer Father Social History Socioeconomic History Marital status: Single Spouse name: Not on file Number of children: Not on file Years of education: Not on file Highest education level: Not on file Occupational History Not on file Tobacco Use Smoking status: Every Day Current packs/day: 0.50 Types: Cigarettes Smokeless tobacco: Never Vaping Use Vaping status: Never Used Substance and Sexual Activity Alcohol use: Not Currently Drug use: Not Currently Types: Marijuana Comment: occasional Sexual activity: Yes Partners: Female control/protection: None Other Topics Concern Not on file Social History Narrative Not on file Social Determinants of Health Financial Resource Strain: Not on file Food Insecurity: No Food Insecurity (12/15/2023) Hunger Screening Food Insecurity - Worry: Never True Food Insecurity - Inability: Never True Transportation Needs: Not on file Physical Activity: Not on file Stress: Not on file Social Connections: Not on file Interpersonal Safety: Not on file Housing Instability: Not on file Allergies Allergen Reactions Amoxicillin Sulfamethoxazole Hives Contact Metal Agent Itching and Rash Current Outpatient Medications Medication Sig Dispense Refill cyclobenzaprine (FLEXERIL) 10 mg tablet Take 1 tablet (10 mg total) by mouth 2 (two) times a day as needed for muscle spasms. 40 tablet 2 gabapentin (NEURONTIN) 300 mg capsule Take 1 capsule (300 mg total) by mouth 3 (three) times a day. 90 capsule 2 ibuprofen (MOTRIN) 800 mg tablet Take 1 tablet (800 mg total) by mouth every 8 (eight) hours as needed for pain. 60 tablet 0 lidocaine (LIDODERM) 5 % Place 1 patch on the skin daily. Remove & Discard patch within 12 hours 30 patch 2 predniSONE (DELTASONE) 10 mg tablet Take 1 tablet (10 mg total) by mouth See Admin Instructions. 1 tab 2x daily x3 days, 1 tab daily x3 days, 1/2 tablet daily x4 days (Patient not taking: Reported on 01/25/2024) 11 tablet 0 No current facility-administered medications for this visit. REVIEW OF SYSTEMS: Review of Systems Constitutional: Negative for chills and fever. HENT: Positive for sore throat and voice change. Negative for trouble swallowing. Eyes: Negative for redness. Respiratory: Negative for cough and shortness of breath. Gastrointestinal: Negative for nausea and vomiting. Endocrine: Negative for heat intolerance. Musculoskeletal: Positive for neck pain. Negative for gait problem and neck stiffness. Allergic/Immunologic: Negative for food allergies. Neurological: Negative for dizziness and headaches. Hematological: Does not bruise/bleed easily. Data Reviewed: I reviewed the past medical history, surgical history, allergies, medications, labs, social history, all pertinent notes. I reviewed the oncologist note from August. Patient has Hodgkin's lymphoma. PET scan showed uptake in bilateral tonsils and adenoids. Referred to ENT. I personally reviewed the PET scan, uptake in bilateral tonsils and midline adenoids. Updated Visit, August 17, 2023: Joselyn returns today for follow up. We looked at his recent PET scan, showed uptake in tonsillar region. He denies a sore throat and does not have any natural teeth. I suggest seeing ENT. He saw palliative care and was prescribed Butrans patches. Initial Visit, July 29, 2023: Joselyn Carnes presents today Hematology and Oncology evaluation. 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 Currently has sweats and fatigue as well as painful lymph nodes. PET in October 2022 was c/w relapse but I'm not sure why he hasn't had care since then. (Possibly incarcerated). He endorses fatigue and sweats for past few months. He smokes 5 cigarettes a day, marijuana, and uses cocaine for managing pain. DIAGNOSIS: Refractory Hodgkin's disease Nodular Lymphocyte-predominent Hodgkin's Lymphoma ASSESSMENT: 43 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 After 6 x ABVD with CR and underwent consolidative RT to left inguinal nodes as well as T-spine. Unfortunately pruritus and lymphadenopathy heralded relapse in May 2016 and he underwent ICE x 3 followed by ASCT February 04, 2017. He was lost to follow up until 2019 when he had several imaging studies for dyspnea and spinal stenosis. He was again lost to follow up until when had recurring neck and groin pain in october 2022 and PET scan showed recurrence. However, he has had multiple issues with substance abuse and I don't see where he has had any oncologic workup since October 2022. Now continues to have fullness in the neck and palpable LN in right groin. PET showed only uptake in the tonsils and I will send him for ENT evaluation. PLAN: Referral to ENT RTC after ENT consultation and workup PET December 2023 PHYSICAL EXAMINATION: Temp 36.8 C (98.2 F) Resp 18 Ht 182.9 cm (6') Wt 103.6 kg (228 lb 6.4 oz) BMI 30.98 kg/m Constitutional: Healthy, alert, cooperative, and in no distress. Voice normal quality. Head/Face: Normocephalic, without obvious abnormality, salivary glands normal, atraumatic, sinuses nontender, and facial nerve intact Eyes: No gross abnormalities., EOMI, no nystagmus, and no lid ptosis Ear: RIGHT: external ear normal, canal normal, and TM normal without fluid or infection LEFT: external ear normal, canal normal, and TM normal without fluid or infection Nose: External nose appears normal, septum midline, normal mucosa, normal turbinates, and no nasal polyps or masses Oral: normal teeth, normal lips, normal gums, normal hard palate, normal anterior tongue, and oral mucosa moist , 3+ enlarged tonsils Oropharynx: normal-appearing mucosa, no pharyngitis, no exudate, and normal soft palate and uvula TMJ: no pain, crepitus, or trismus Neck:normal, supple, no adenopathy, thyroid normal in size, no nodules or tenderness, no neck masses palpable, and carotids normal Respiration: No stridor, Normal respiratory effort. Neurologic: Grossly normal Alert Oriented X 3 Affect normal Cranial nerves 2 -12 grossly intact Procedure: Procedure performed: Flexible fiberoptic laryngoscopy Indication(s) for endoscopy: abnormal PET scan Risks and indications of the procedure were discussion. After decongesting and anesthetizing bilateral nasal cavities with topical vasoconstrictor and anesthetic, the endoscope was passed through the nares and passed into the nasopharynx. Findings: Nose and Sinuses: no nasal polyps, purulence, masses or lesions. no abnormalities of the Osteomeatal Complex. Nasopharynx: no masses with patent Eustachian tube orifices bilaterally. Adenoids are present and enlarged and symmetric. no abnormalities of the nasopharyngeal mucosa. no abnormalities of the posterior nasal choanae. Oropharynx: no lesions of the pharyngeal potter, base of tongue, or soft palate Hypopharynx: no lesions of bilateral Pyriform sinuses or pharyngeal potter; post-cricoid region unremarkable Larynx: no lesions of the epiglottis, aryepiglottic folds, or vocal cords; Right vocal cord demonstrates normal mobility. Left vocal cord demonstrates normal mobility. ASSESSMENT/PLAN: Joselyn was seen today for sore throat and nodular lymphocyte. 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 [employer]IAN scope with adenoid hypertrophy and exam with bilateral enlarged tonsils. Discussed ddx of hypermetabolic adenotonsillar tissue with patient, who also inhales caustic substances and has allergic rhinitis. Reaching out to oncologist to discuss further. We will likely need a biopsy of both tonsils and adenoids. Patient lives 45 minutes away. We will contact them remotely. Counseling given, management options discussed, all questions answered. Addendum: discussed with patient's oncologist on the phone, who would like to rule out recurrence of Hodgkin's lymphoma. Will reach out to patient; plan for incisional biopsy of adenoids and bilateral tonsils with possible adenotonsillectomy. Will need clearance for CHF, stroke, and clots. Consent day of surgery. Please note that parts of this chart were generated using voice recognition iOpener dictation software. Although every effort was made to ensure the accuracy of this automated rebar bender, some errors in rebar bender may have occurred. documented in this encounter [facility] 01-22-2024 Note Addended by: SIMRAN YAO on: 01/22/2024 04:14 PM Modules accepted: Orders [facility] 01-22-2024 Miscellaneous Notes Addended by: SIMRAN NELSON on: 01/22/2024 04:14 PM Modules accepted: Orders documented in this encounter [facility] 01-22-2024 Telephone encounter Note Ambulatory Pharmacy Prior Authorization Note Provider Intervention Required?: No- Pharmacy completed on your behalf. Rx Plan: [facility]: Buprenorphine patches Cover My Meds Ly: [id number] Determination: Denied PA Denied because: Step therapy requirement Prior Authorization/Case #: [id number] Prior Authorization Expiration: na Time to PA Submission in CMM: 15 min Time to PA Determination in CMM: 1 day Additional Information: must try Tramadol ER For questions relating to this submission, please contact [facility] at [phone] [facility] Work Phone: 01-22-2024 Instructions Simran Nelson APRN.WAIST FITTER - 01/22/2024 3:35 PM EDT Simran Nelson CNP Department of Palliative and Supportive Care Palliative Care - Specialty services in symptom management and support For questions or prescription refills, call: [phone] Thursday - Thursday 9AM-5PM BISHOP Baldwin, RN - Machine Tracer Please call 3-5 days in advance for medication refills Evenings, Weekends, Holidays: [phone] (ask for palliative medicine on-call provider) For appointments, cancellations or reschedule, call: [phone] documented in this encounter [facility] 01-22-2024 Nurse Note Patient sees ENT 01/25/24. Jovita Raygoza MA [facility] 01-22-2024 Nurse Note Patient sees ENT 01/25/24. Jovita Raygoza MA documented in this encounter [facility] 01-22-2024 History of Present illness Narrative PALLIATIVE MEDICINE PROGRESS NOTE SERVICE DATE: 01/22/2024 CHIEF COMPLAINT: Neoplasm Pain PERTINENT MEDICAL HISTORY: Joselyn Carnes is a 43 year old male with history of Nodular lymphocyte predominant Hodgkin's Lymphoma diagnosed in June [address] left inguinal LN. After 6 x ABVD with CR and underwent consolidative RT to left inguinal nodes as well as T-spine. Unfortunately pruritus and lymphadenopathy heralded relapse in May 2016 and he underwent ICE x 3 followed by ASCT February 04, 2017. He was lost to follow up until 2019 when he had several imaging studies for dyspnea and spinal stenosis. He was again lost to follow up until when had recurring neck and groin pain in october 2022 and PET scan showed recurrence. SUBJECTIVE Joselyn was lost to follow up, he was last seen 08/08, he was in a residential treatment program, has been sober for four months Chronic left hip pain, being treated by PCP, on gabapentin, motrin, flexeril. Complains today of low back pain and pain in the neck area awaiting follow-up with ENT He never started a prescription of transdermal Butrans back in July because he did not understand why it was giving him Suboxone and he was still using crack and IV drugs and did not want to throw himself into withdrawal PET scan 01/12/24 shows: HEAD/NECK: * Persistent intense uptake at the [...] and FDG avidity, still with mild uptake. He has been referred to ENT No significant emotional, spiritual, or sleep disturbance .GI or distress no appetite and weight are stable Modified ESAS ([place] Symptom Assessment Scale) Information Provided By: Patient Pain: Moderate Nausea: None Loss of Appetite: None Constipation: None Shortness of Breath: None Drowsiness: None Tiredness: None Depression: None Anxiety: None Objective ECOG PERFORMANCE STATUS: 0- Fully active, able to carry on all pre-disease performance w/o restriction. PHYSICAL EXAMINATION: Vital signs: There were no vitals taken for this visit. Last 1 Encounter Temp Readings: Date: Temp: Temp Src: 12/18/2023 36.6 C (97.8 F) Temporal Last 1 Encounter Resp Readings: Date: Resp: 12/18/2023 16 Last 1 Encounter Pulse Readings: Date: Pulse: 12/18/2023 67 Last 1 Encounter BP Readings: Date: BP: 12/18/2023 125/79 Physical Exam DATA: Diagnostic tests reviewed for today's visit: Most recent labs and imaging results. Estimated Creatinine Clearance: 93.7 mL/min (A) (based on SCr of 1.23 mg/dL (H)). Opioid Management: Yes Indication for Opioid Prescribing: Cancer related pain ORT-OUD Score: 4 A score of 3 or higher may indicate a higher risk for future development of aberrant drug related behavior or opioid use disorder. Informed consent for chronic opiate therapy obtained and written pain agreement: Signed today Naloxone offered?: Yes, accepted Course of treatment, patient's response and adherence to the prescribed treatment plan reviewed, including non-pharmacological and non-opioid treatment modalities? Yes Have any complications or exacerbations of the underlying condition causing the pain been reviewed? Yes How much does pain impede patient s ability to engage in work or other purposeful activities, interfere with your activities of daily living, physical activity, or quality of your family life and social activities? Significantly Aberrancies in pain panel? No Any aberrant drug related behaviors since last visit? No Rationale for continuing opioid treatment: Improved comfort and function based on an ongoing functional assessment Benefits of Opioid Therapy outweigh risks: Yes Prescribed Morphine Equivalent Daily Dose (MEDD): Yes > 50 MEDD Yes, I am certified in Hospice and Palliative Care, Hematology, Medical Oncology or Pain Medicine OARRS Checked: PDMP website checked and validated. All prescriptions have been APPROPRIATELY filled. No suspicious activity was identified. 01/22/2024 by Simran Nelson, DELIO, SPRIGGER.WAIST FITTER Assessment & Plan (Z51.5) Palliative care by specialist (primary encounter diagnosis) - Introduced philosophy of palliative medicine - Discussed services offered by [facility] - Provided support - Discussed goals of care and how they align with current plan of care - Discussed / described code status and implications while in the hospital - PT remains Full Code (C81.09) 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) (G89.3) Neoplasm related pain (K59.03) Drug-induced constipation (Z79.891) Opioid contract exists (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 Transdermal Butrans is less likely to contribute to respiratory depression. Also as he is new in his sobriety transdermal Butrans will assist him in that process Joselyn has a documented diagnosis of chronic pain severe enough to require daily, [id number], prison opioid treatment AND ? Alternative treatment options are ineffective, not tolerated, or would be otherwise inadequate to provide sufficient management of pain (i.e., non-opioid analgesics or immediate-release opioids) AND ? Butrans is NOT being used in combination with any other long-acting opioid therapy AND ? Butrans is NOT being used for the treatment of opioid dependence AND ? The patient does NOT have any of the following contraindications to Butrans: Acute or severe bronchial asthma OR known or suspected gastrointestinal obstruction, including paralytic ileus - reviewed narcotic agreement, he will require drug testing every visit - Start buprenorphine (BUTRANS5 mcg/hour, 1 patch every 7 days - senna-docusate (SENNA-S) 8.6-50 mg per tablet daily, hold for loose stool - PAIN PANEL, UR QUANT, TOX SCREEN ROUT UR Some elements copied from my note on 08/07/23, the elements have been updated and all reflect current decision making from today, 01/22/2024. I spent a total of 35 minutes on the date of the service which included preparing to see the patient, [id number] patient care, completing clinical documentation, obtaining and/or reviewing separately obtained history, performing a medically appropriate examination, counseling and educating the patient/family/caregiver, ordering medications, tests, or procedures, communicating with other HCPs (not separately reported), independently interpreting results (not separately reported), communicating results to the patient/family/caregiver, and care coordination (not separately reported). Existence of Advance Directives: No - not interested Next Visit: 4 Weeks in person Simran Nelson NP, SPRIGGER.WAIST FITTER January 22, 2024 1:31 PM This note may have been partially generated using the Vaurum voice recognition system. While every effort was made to correct voice recognition errors, kindly be aware that some errors may occasionally occur. documented in this encounter [facility] 01-22-2024 Note HNO ID: [id number] Author: SIMRAN NELSON APRN.HERACLIO Service: ? Author Type: Nurse Practitioner Type: Progress Notes Filed: 01/25/2024 13:01 Note Text: PALLIATIVE MEDICINE PROGRESS NOTE SERVICE DATE: 01/22/2024 CHIEF COMPLAINT: Neoplasm Pain PERTINENT MEDICAL HISTORY: Joselyn Carnes is a 43 year old male with history of Nodular lymphocyte predominant Hodgkin's Lymphoma diagnosed in June [address] left [address]. After 6 x ABVD with CR and underwent consolidative RT to left inguinal nodes as well as T-spine. Unfortunately pruritus and lymphadenopathy heralded relapse in May 2016 and he underwent ICE x 3 followed by ASCT February 04, 2017. He was lost to follow up until 2018 when he had several imaging studies for dyspnea and spinal stenosis. He was again lost to follow up until when had recurring neck and groin pain in october 2022 and PET scan showed recurrence. SUBJECTIVE Joselyn was lost to follow up, he was last seen 08/08, he was in a residential treatment program, has been sober for four months Chronic left hip pain, being treated by PCP, on gabapentin, motrin, flexeril. Complains today of low back pain and pain in the neck area awaiting follow-up with ENT He never started a prescription of transdermal Butrans back in July because he did not understand why it was giving him Suboxone and he was still using crack and IV drugs and did not want to throw himself into withdrawal PET scan 01/12/24 shows: HEAD/NECK: * Persistent intense uptake at the [...] and FDG avidity, still with mild uptake. He has been referred to ENT No significant emotional, spiritual, or sleep disturbance .GI or distress no appetite and weight are stable Modified ESAS ([place] Symptom Assessment Scale) Information Provided By: Patient Pain: Moderate Nausea: None Loss of Appetite: None Constipation: None Shortness of Breath: None Drowsiness: None Tiredness: None Depression: None Anxiety: None Objective ECOG PERFORMANCE STATUS: 0- Fully active, able to carry on all pre-disease performance w/o restriction. PHYSICAL EXAMINATION: Vital signs: There were no vitals taken for this visit. Last 1 Encounter Temp Readings: Date: Temp: Temp Src: 12/18/2023 36.6 ?C (97.8 ?F) Temporal Last 1 Encounter Resp Readings: Date: Resp: 12/18/2023 16 Last 1 Encounter Pulse Readings: Date: Pulse: 12/18/2023 67 Last 1 Encounter BP Readings: Date: BP: 12/18/2023 125/79 Physical Exam DATA: Diagnostic tests reviewed for today's visit: Most recent labs and imaging results. Estimated Creatinine Clearance: 93.7 mL/min (A) (based on SCr of 1.23 mg/dL (H)). Opioid Management: Yes Indication for Opioid Prescribing: Cancer related pain ORT-OUD Score: 4 A score of 3 or higher may indicate a higher risk for future development of aberrant drug related behavior or opioid use disorder. Informed consent for chronic opiate therapy obtained and written pain agreement: Signed today Naloxone offered?: Yes, accepted Course of treatment, patient's response and adherence to the prescribed treatment plan reviewed, including non-pharmacological and non-opioid treatment modalities? Yes Have any complications or exacerbations of the underlying condition causing the pain been reviewed? Yes How much does pain impede patient?s ability to engage in work or other purposeful activities, interfere with your activities of daily living, physical activity, or quality of your family life and social activities? Significantly Aberrancies in pain panel? No Any aberrant drug related behaviors since last visit? No Rationale for continuing opioid treatment: Improved comfort and function based on an ongoing functional assessment Benefits of Opioid Therapy outweigh risks: Yes Prescribed Morphine Equivalent Daily Dose (MEDD): Yes > 50 MEDD Yes, I am certified in Hospice and Palliative Care, Hematology, Medical Oncology or Pain Medicine OARRS Checked: PDMP website checked and validated. All prescriptions have been APPROPRIATELY filled. No suspicious activity was identified. 01/22/2024 by Simran Nelson, YOUNG ADULT LIBRARIAN, [email or web address] FITTER Assessment AND Plan (Z51.5) Palliative care by specialist (primary encounter diagnosis) - Introduced philosophy of palliative medicine - Discussed services offered by [facility] - Provided support - Discussed goals of care and how they align with current plan of care - Discussed / described code status and implications while in the ho (more content not included)... [facility] 01-21-2024 Miscellaneous Notes ----- Message from JUVE Marin sent at 01/21/2024 8:50 AM EDT ----- Patient will need an appointment to discuss abnormal results from [facility] How soon you want him in? Scheduling into February February is fine No VM documented in this encounter [facility] 01-21-2024 Telephone encounter Note ----- Message from JUVE Marin sent at 01/21/2024 8:50 AM EDT ----- Patient will need an appointment to discuss abnormal results from [facility] 01-21-2024 Telephone encounter Note How soon you want him in? Scheduling into February [facility] 01-21-2024 Telephone encounter Note February is fine [facility] 01-21-2024 Telephone encounter Note No VM [facility] 01-18-2024 Telephone encounter Note Called ENT spoke with Dominga. Patient is scheduled to see Dr Burr on 01/24. Cara Meehan [facility] 01-18-2024 Miscellaneous Notes Called ENT spoke with Dominga. Patient is scheduled to see Dr Burr on 01/24. Cara Meehan Spoke with pt. He reports he called and is awaiting a call back to get scheduled. Encouraged to call them back if he does not hear back by Thursday, to check status of appt. Carola Nicolas, RN Called [facility] ENT office spoke with Cassie. She states they have received this referral and their office has been extremely busy and asked if we could call patient and ask him to call their office. I tried to call patient but unable to reach and unable to leave message mail box not set up. Cara Meehan Records faxed to [facility] ENT. Sangeeta: Information ready for you. Cara Meehan Please refer to ENT in [place] / [facility]. The office phone number is [phone]. Address [address] in [place]. Sangeeta, Please fax records Sylvester, Please follow up on this appt. Thank you documented in this encounter [facility] 01-13-2024 Telephone encounter Note Report faxed. Images being pushed to [facility]. [facility] 01-13-2024 Miscellaneous Notes Report faxed. Images being pushed to [facility]. Spoke with Dr Aminah Castrejon's office she is aware of recommendations per Nhung . Also updated we are sending01/04/24 PET imaging/report. She will update Dr Burr. They have a cancelation appt 01/25/24 and will call pt to move appt up. I will call office for update after 01/25/24. SANDRA Gonzalezk: FYI: (pt is already scheduled for f/u with you 02/19/24) Called and discussed with pt. He is seeing ENT, in [place]: 02/04/24 @ 130 Address: [facility] [place] Call placed to [phone], Pt seeing Dr Burr ENT phone # provided [phone]. Will call after [address] inform of [address] Islas's recommendations. Sangeeta: please forward PET/CT to Dr Aminah Nicolas, RN So he still hasn't seen ENT as far as I know - I'd like the ENT doc to review PET/CT because he's got uptake in adenoids. Low grade uptake in inguinal LN's Neck (with ENT ) will need tissue sampling. Nhung: please review PET resulted today and advise Carola Nicolas RN Dr Islas is requesting triage to call results of Pet scan and lab to be done on 01-04-24. Thank you documented in this encounter [facility] 01-13-2024 Telephone encounter Note Spoke with Dr Aminah Castrejon's office she is aware of recommendations per Nhung . Also updated we are sending01/04/24 PET imaging/report. She will update Dr Burr. They have a cancelation appt 01/25/24 and will call pt to move appt up. I will call office for update after 01/25/24. SANDRA Gonzalez: FYI: (pt is already scheduled for f/u with you 02/19/24) [facility] 01-13-2024 Telephone encounter Note Called and discussed with pt. He is seeing ENT, in [place]: 02/04/24 @ 130 Address: [address] [place] [address] [place] Call placed to [phone], Pt seeing Dr Burr ENT phone # provided [phone]. Will call after [address] inform of [address] Islas's recommendations. Sangeeta: please forward PET/CT to Dr Aminah Nicolas RN [facility] 01-13-2024 Telephone encounter Note So he still hasn't seen ENT as far as I know - I'd like the ENT doc to review PET/CT because he's got uptake in adenoids. Low grade uptake in inguinal LN's Neck (with ENT ) will need tissue sampling. T [facility] Work Phone: 01-12-2024 Telephone encounter Note Nhung: please review PET resulted today and advise Carola Nicolas RN [facility] 01-04-2024 History of Present illness Narrative Radiology Service Progress Note DATE OF SERVICE: January 04, 2024 TIME: 12:06 PM PATIENT IDENTITY VERIFICATION COMPLETED USING TWO (2) STANDARD IDENTIFIERS: Name and Date of confirmed by patient verbally. FALL SCREENING: Has the patient had 2 falls in the last year or 1 fall with injury or currently using an Ambulatory Assistive Device (Walker, Cane, Wheelchair, Crutches, etc.)? No PATIENT GENDER DATA: Male EXAM: CT -CONTRAST INDUCED NEPHROPATHY RISK FACTORS: Not applicable CREATININE: Creatinine Date Value Ref Range Status 08/12/2023 1.14 0.73 - 1.22 mg/dL Final 08/02/2018 1.10 0.7 - 1.2 MG/DL Final 07/26/2018 1.11 0.7 - 1.2 MG/DL Final Estimated Glomerular Filtration Rate Date Value Ref Range Status 08/12/2023 81 >=60 mL/min/1.73m Final Comment: Estimated Glomerular Filtration Rate (eGFR) is calculated using the 2020 CKD-EPI creatinine equation. This equation utilizes serum creatinine, sex, and age as parameters. The creatinine assay has traceable calibration to isotope dilution-mass spectrometry. Refer to KDIGO guidelines for clinical interpretation. In patients with unstable renal function, e.g. those with acute kidney injury, the eGFR may not accurately reflect actual GFR. eGFR- Date Value Ref Range Status 07/22/2018 >60 Final P.O.C.T. RESULTS: N/A January 04, 2024 TREATMENT: N/A IV SITE: Ambulatory: A peripheral IV was started in the Right antecubital site with a Angio cath: 22 gauge. IV SITE APPEARANCE: Clean,Dry and Intact SIGNATURE: Marcia Zuniga RN PATIENT NAME: Joselyn Carnes DATE: January 04, 2024 TIME: 12:06 PM RADIOLOGY SERVICE PROGRESS NOTE SERVICE DATE: 01/04/2024 SERVICE TIME: 12:38 PM PATIENT IDENTITY VERIFICATION COMPLETED USING TWO (2) STANDARD IDENTIFIERS: Name and Date of confirmed by patient verbally POST EXAM PIV STATUS: Discontinued PROCEDURE TYPE: NM INJECT: PET/CT BODY SCAN. 14.4 mCi F18 FDG. No other medications given.. ADMINISTRATION TIME: 1205 PATIENT DISCHARGED TO: Ambulatory patient, left [place] department area. A Diagnostic radioactive procedure has taken place, with no further precautions necessary other than routine body substance precautions. More information regarding radiation safety can be found using this link: [email or web address] [email or web address] SIGNATURE: RT Diana(Paula) PATIENT NAME: Joselyn Carnes DATE: January 04, 2024 TIME: 12:38 PM PAGER/CONTACT #: documented in this encounter [facility] 01-04-2024 Note HNO ID: [id number] Author: MARCIA ZUNIGA RN Service: ? Author Type: Registered Nurse Type: Progress Notes Filed: 01/04/2024 12:08 Note Text: Radiology Service Progress Note DATE OF SERVICE: January 04, 2024 TIME: 12:06 PM PATIENT IDENTITY VERIFICATION COMPLETED USING TWO (2) STANDARD IDENTIFIERS: Name and Date of confirmed by patient verbally. FALL SCREENING: Has the patient had 2 falls in the last year or 1 fall with injury or currently using an Ambulatory Assistive Device (Gian Cane, Wheelchair, Crutches, etc.)? No PATIENT GENDER DATA: Male EXAM: CT -CONTRAST INDUCED NEPHROPATHY RISK FACTORS: Not applicable CREATININE: Creatinine Date Value Ref Range Status 08/12/2023 1.14 0.73 - 1.22 mg/dL Final 08/02/2018 1.10 0.7 - 1.2 MG/DL Final 07/26/2018 1.11 0.7 - 1.2 MG/DL Final Estimated Glomerular Filtration Rate Date Value Ref Range Status 08/12/2023 81 >=60 mL/min/1.73m? Final Comment: Estimated Glomerular Filtration Rate (eGFR) is calculated using the 2020 CKD-EPI creatinine equation. This equation utilizes serum creatinine, sex, and age as parameters. The creatinine assay has traceable calibration to isotope dilution-mass spectrometry. Refer to KDIGO guidelines for clinical interpretation. In patients with unstable renal function, e.g. those with acute kidney injury, the eGFR may not accurately reflect actual GFR. eGFR- Date Value Ref Range Status 07/22/2018 >60 Final P.O.C.T. RESULTS: N/A January 04, 2024 TREATMENT: N/A IV SITE: Ambulatory: A peripheral IV was started in the Right antecubital site with a Angio cath: 22 gauge. IV SITE APPEARANCE: Clean,Dry and Intact SIGNATURE: Marcia Zuniga RN PATIENT NAME: Joselyn Carnes DATE: January 04, 2024 TIME: 12:[address] [facility] 01-04-2024 Note HNO ID: [id number] Author: ANAI JIMENEZ RT(R) Service: ? Author Type: Technologist Type: Progress Notes Filed: 01/04/2024 12:39 Note Text: RADIOLOGY SERVICE PROGRESS NOTE SERVICE DATE: 01/04/2024 SERVICE TIME: 12:38 PM PATIENT IDENTITY VERIFICATION COMPLETED USING TWO (2) STANDARD IDENTIFIERS: Name and Date of confirmed by patient verbally POST EXAM PIV STATUS: Discontinued PROCEDURE TYPE: NM INJECT: PET/CT BODY SCAN. 14.4 mCi F18 FDG. No other medications given.. ADMINISTRATION TIME: 1205 PATIENT DISCHARGED TO: Ambulatory patient, left [place] department area. A Diagnostic radioactive procedure has taken place, with no further precautions necessary other than routine body substance precautions. More information regarding radiation safety can be found using this link: [email or web address] 20Diagnostic%20Nuclear%20Medicine %[email or web address] SIGNATURE: Anai Jimenez RT(R) PATIENT NAME: Joselyn Carnes DATE: January 04, 2024 TIME: 12:38 PM PAGER/CONTACT #: [facility] 12-31-2023 Telephone encounter Note Spoke with pt. He reports he called and is awaiting a call back to get scheduled. Encouraged to call them back if he does not hear back by Thursday, to check status of appt. Carola Nicolas RN [facility] 12-31-2023 Telephone encounter Note Called [facility] ENT office spoke with Cassie. She states they have received this referral and their office has been extremely busy and asked if we could call patient and ask him to call their office. I tried to call patient but unable to reach and unable to leave message mail box not set up. Cara Meehan [facility] 12-31-2023 Miscellaneous Notes ----- Message from Almaz sent at 12/31/2023 8:49 AM EDT ----- Tried calling to schedule. Pt voicemail is not set up ----- Message ----- From: Katja Colin RN Sent: 12/31/2023 8:40 AM EDT To: [facility] Ent Scheduling Team Please schedule with first available provider. Thanks! ----- Message ----- From: Ovidio Samuel MD Sent: 12/31/2023 8:37 AM EDT To: Katja Colin RN This looks like general. Thanks! ----- Message ----- From: Katja Colin RN Sent: 12/29/2023 1:22 PM EDT To: MD Yodit Canales could you look at another one for me please? PET report is in care everywhere, no imaging yet. Just not sure if this should go with you, Dr. Sanches, or Dr. Rogers or if the general rotation is okay. Thank you!!! documented in this encounter [facility] 12-31-2023 Telephone encounter Note ----- Message from Almaz sent at 12/31/2023 8:49 AM EDT ----- Tried calling to schedule. Pt voicemail is not set up ----- Message ----- From: Katja Colin RN Sent: 12/31/2023 8:40 AM EDT To: [facility] Ent Scheduling Team Please schedule with first available provider. Thanks! ----- Message ----- From: Ovidio Samuel MD Sent: 12/31/2023 8:37 AM EDT To: Katja Colin RN This looks like general. Thanks! ----- Message ----- From: Katja Colin RN Sent: 12/29/2023 1:22 PM EDT To: MD Yodit Canales could you look at another one for me please? PET report is in care everywhere, no imaging yet. Just not sure if this should go with you, Dr. Sanches, or Dr. Rogers or if the general rotation is okay. Thank you!!! [facility] 12-21-2023 Telephone encounter Note Records faxed to [facility] ENT. [facility] 12-21-2023 Telephone encounter Note Sangeeta: Information ready for you. Cara Meehan [facility] 12-21-2023 Telephone encounter Note Please refer to ENT in [place] / [facility]. The office phone number is [phone]. Address [address] in [place]. Sangeeta, Please fax records Sylvester, Please follow up on this appt. Thank you [facility] 12-21-[address] Islas is requesting triage to call results of Pet scan and lab to be done on 01-04-24. Thank you [facility] 12-18-2023 Instructions Rich Hill MD - 12/18/2023 2:51 PM EDT PET/CT with labs Triage to call results Referral to ENT Referral back to palliative med RTC after ENT consultation and workup documented in this encounter [facility] 12-18-2023 History of Present illness Narrative Images from the original note were not included. 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 After 6 x ABVD with CR and underwent consolidative RT to left inguinal nodes as well as T-spine. Unfortunately pruritus and lymphadenopathy heralded relapse in May 2016 and he underwent ICE x 3 followed by ASCT February 04, 2017. He was lost to follow up until 2019 when he had several imaging studies for dyspnea and spinal stenosis. He was again lost to follow up until when had recurring neck and groin pain in october 2022 and PET scan showed recurrence. However, he has had multiple issues with substance abuse and I don't see where he has had any oncologic workup since October 2022. Now continues to have fullness in the neck and palpable LN in right groin. PET showed only uptake in the tonsils and I will send him for ENT evaluation. He was addicted and using in July but has cleaned up - we will repeat PET/CT since it has been more than 4 months, and he can see ENT afterwards. PLAN: PET/CT with labs Triage to call results Referral to ENT Referral to palliative med RTC after ENT consultation and workup - about 8 weeks HPI: CASE HISTORY: Reverse Chronological Order 08/12/2023 - PET/CT : Deauville Score: 4 HEAD/NECK: Diffuse uptake in the bilateral tonsillar regions. Mildly hypermetabolic bilateral cervical lymph nodes. 01/06/2023 - CT Lumbar Spine: Diffuse degenerative arthritis in the lumbar spine. 01/06/2023 - CT Cervical Spine: Disc degenerative disease in the cervical spine with particularly involvement of C5-C6 and C6-C7. Chronic bilateral maxillary sinusitis. 11/29/2022 - XR Chest: Lungs are clear. Small right effusion. No pleural effusion, pneumothorax, nor volume loss. Heart and mediastinal structures are unremarkable. Pulmonary vasculature stable. No significant change. 11/11/2022 - PET/CT: Deauville level 5 lymph nodes in the bilateral neck, as well as in the proximal left upper extremity. Deauville level 2 bilateral inguinal lymph nodes. Deauville level 2 right middle lobe lung mass. 12/06/2018 - MRI Brain: No acute infarct. 12/05/2018 - MRI Cervical Spine: Mild spinal canal stenosis, moderate right and mild left neural foraminal narrowing at C5-6 secondary to a disc bulge and uncovertebral overgrowth. Mild spinal canal stenosis and mild bilateral neural foraminal narrowing at C6-7 secondary to a disc bulge and uncovertebral overgrowth. 12/03/2018 - XR Chest: Persistent mild right pleural effusion with associated basilar atelectasis. Redemonstration of mild left hilar prominence which may be again further assessed by contrast-enhanced chest CT. 07/11/2018 - CT Chest: Suboptimal contrast opacification however no evidence of pulmonary embolism. Irregularity of right axillary vein with multiple collaterals extending proximal to the site that could indicate venous stenosis or thrombosis. Further assessment with ultrasound should be considered. Moderate size right effusion with mucus plugging and atelectasis right lung base and additional smaller sites of subsegmental atelectasis. 01/2017 - Received ASCT with no major complications Protocol(s):3422 1M Preparative regimen: BEAM Mobilization regimen: Plerixafor & Neupogen Stem cell source: Apharesis CD34 cell dose (x10e6/kg): Date of transplant: 02/04/201706/2016-10/2016 - Received a total of 3 cycles of ICE. He has been compliant with therapy. Continued to take oxycodone for back pain. PET scan shows complete metabolic response. Echocardiogram notable for mildly depressed ejection fraction. 06/2016 - Cervical lymph node biopsy: - Recurrent nodular lymphocyte-predominant Hodgkin lymphoma. 05/2016 - PET/CT: Extensive hypermetabolic lymphadenopathy, splenic and skeletal involvement. 04/2016 - Continued back pain despite XRT. Pruritus has returned. Enlarging left groin lymph nodes. Dr. Ceballos recommended referral here for further evaluation. 11/2015 - PET/CT: Showed complete metabolic response. Summer 2015 - Developed recurrent pruritis. 12/2015-03/2016 - Received 3420 Gy in 20 fractions to left pelvic lymph nodes and 1200 Gy in 10 fractions to T12-L3 spine 07/2015-11/2015 - Bone marrow biopsy negative for lymphoma involvement. PET scan with involvement in chest, abdomen, pelvis, and spine. ABVD x 6 cycles. Patient mentions not receiving one of the medications because of shortage - not mentioned in records. Course complicated by IJ occlusion requiring removal of port, started AC. Continues on eloquis. Completion PET scan demonstrated CR Deauville 1 07/06/2015 - Lymph node, right inguinal, excisional biopsy: - Nodular lymphocyte-predominant Hodgkin lymphoma 06/2015 - Increasing back pains and night sweats. Initiatlly just given symptomatic treatement without much improvement. PCP then ordered MRI demonstrated osseous lesions concerning for mets and RP LAD. Sent for CT A/P showing diffuse LAD. No CT chest in outside records. 04/20/2015 - XR Chest: Central airway cuffing with bilateral peribronchial infiltrates, left greater than right. Findings suspicious for bronchopneumonia. Blunting of the right costophrenic angle. This is indeterminate for pleural fluid versus chronic scarring. A report from 2006 indicates a similar finding although those images are not available at the time of this dictation. Minimal left pleural effusion also suspected. Updated Visit, December 18, 2023: Joselyn returns today for a follow up. 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 He has not yet followed up with ENT, so will need to reschedule. He also asked to be referred to palliative medicine. He denies fevers, chills, and sweats. Updated Visit, August 17, 2023: Joselyn returns today for follow up. We looked at his recent PET scan, showed uptake in tonsillar region. He denies a sore throat and does not have any natural teeth. I suggest seeing ENT. He saw palliative care and was prescribed Butrans patches. Initial Visit, July 29, 2023: Joselyn Carnes presents today Hematology and Oncology evaluation. He is a 43 year old male who presents for second opinion for prior history of nodular lymphocyte predominent Hodgkin's disease in second remission after ABVD, IVRT, Salvage ICE and ASCT in January 2017. Currently has sweats and fatigue as well as painful lymph nodes. PET in October 2022 was c/w relapse but I'm not sure why he hasn't had care since then (possibly incarcerated). He endorses fatigue and sweats for past few months. He smokes 5 cigarettes a day, marijuana, and uses cocaine for managing pain. REVIEW OF SYSTEMS Per HPI and otherwise negative by full review of organ systems. ECOG PERFORMANCE STATUS: 1 PHYSICAL EXAMINATION: Vitals: BP 125/79 Pulse 67 Temp (Src) 97.8 (Temporal) Resp 16 Wt 211 lb 13.8 oz (96.1kg) SpO2 100% Body surface area is 2.22 meters squared. Exam limited to gross visualization where appropriate. Gen.: This is an age-appropriate patient in no acute distress. Aime: Negative for suboccipital, cervical, submandibular, supraclavicular, axillary, epitrochlear LN chains. No hepatosplenomegaly. Only palpable lymph node is in right groin, 2cm. Left groin was radiated, no palpable lymph nodes. Head: Appears atraumatic with no visible lesions. Eyes: Pupils equally round and reactive to light, extraocular muscles are intact. Neck: Supple. Respiratory: Appears to be respiring comfortably. Neurologic: Nonfocal to gross visualization. Alert and oriented 3. Psychiatric: No evidence of inappropriate anxiety or depression. Skin: Visible areas of skin without rash, lesions, wounds or petechiae. ALLERGIES: ALLERGIES Allergen Reactions Bactrim [Sulfametho* Hives Itching Patient denied any reaction history or allergy to Bactrim or Sulfa during history obtained on 07/14/18; please see Allergy consult note from that date for further details. Amoxicillin Swelling Facial swelling; Negative penicillin skin testing on 07/14/18. Please see allergy consult note from that date. recommend test dosing PCN prior to administration. MEDICATIONS: gabapentin (NEURONTIN) 300 mg capsule Take 300 mg by mouth. predniSONE (DELTASONE) 10 mg tablet Take 10 mg by mouth. ibuprofen (MOTRIN) 800 mg tablet Take 800 mg by mouth three times a day as needed. cyclobenzaprine (FLEXERIL) 10 mg tablet Take 10 mg by mouth. senna-docusate (SENNA-S) 8.6-50 mg per tablet Take 1 tablet by mouth once daily. OLANZapine (ZYPREXA) 5 mg tablet Take 1 tablet by mouth daily at bedtime. ibuprofen (MOTRIN) 800 mg tablet Take 800 mg by mouth. buprenorphine (BUTRANS) 5 mcg/hour Apply 1 Patch as directed one time a week for 30 days. LABORATORY VALUES: WBC (k/uL) Date Value 08/12/2023 4.69 RBC (m/uL) Date Value 08/12/2023 4.86 Hemoglobin (g/dL) Date Value 08/12/2023 14.8 Hematocrit (%) Date Value 08/12/2023 43.2 MCV (fL) Date Value 08/12/2023 88.9 MCH (pg) Date Value 08/12/2023 30.5 MCHC (g/dL) Date Value 08/12/2023 34.3 RDW-CV (%) Date Value 08/12/2023 12.6 Platelet Count (k/uL) Date Value 08/12/2023 223 MPV (fL) Date Value 08/12/2023 9.1 Glucose (mg/dL) Date Value 08/12/2023 87 BUN (mg/dL) Date Value 08/12/2023 21 Creatinine (mg/dL) Date Value 08/12/2023 1.14 Sodium (mmol/L) Date Value 08/12/2023 139 Potassium (mmol/L) Date Value 08/12/2023 4.2 Chloride (mmol/L) Date Value 08/12/2023 103 CO2 (mmol/L) Date Value 08/12/2023 26 Protein, Total (g/dL) Date Value 08/12/2023 7.4 Albumin (g/dL) Date Value 08/12/2023 5.0 (H) Calcium, Total (mg/dL) Date Value 08/12/2023 9.9 Alkaline Phosphatase (U/L) Date Value 08/12/2023 96 Bilirubin, Total (mg/dL) Date Value 08/12/2023 0.4 AST (U/L) Date Value 08/12/2023 49 (H) ALT (U/L) Date Value 08/12/2023 100 (H) Cholesterol, Total (mg/dL) Date Value 12/08/2016 219 (H) Triglyceride (mg/dL) Date Value 12/08/2016 122 DIAGNOSIS: (C81.08) 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) (primary encounter diagnosis) Plan: NM PET/CT SKULL-THIGH SUBSEQUENT, LACTATE DEHYDROGENASE, COMPLETE BLOOD COUNT AND DIFFERENTIAL, COMPREHENSIVE METABOLIC PANEL (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) Plan: NM PET/CT SKULL-THIGH SUBSEQUENT, LACTATE DEHYDROGENASE, COMPLETE BLOOD COUNT AND DIFFERENTIAL, COMPREHENSIVE METABOLIC PANEL (R93.89) Abnormal finding on imaging Plan: NM PET/CT SKULL-THIGH SUBSEQUENT, LACTATE DEHYDROGENASE, COMPLETE BLOOD COUNT AND DIFFERENTIAL, COMPREHENSIVE METABOLIC PANEL PAST MEDICAL HISTORY Diagnosis Date Blood clot due to device, implant, or graft 11/18/2016 Cellulitis both feet - staph infection Hodgkin's disease (HCC) 11/18/2016 PAST SURGICAL HISTORY Procedure Laterality Date APPENDECTOMY BIOPSY LYMPH NODE NEEDLE PORTOCATH PLACEMENT UNSPECIFIED ORAL SURGERY PROCEDURE, BY REPORT all teeth removed Social History Tobacco Use Smoking status: Every Day Packs/day: 0.50 Years: 27.00 Additional pack years: 0.00 Total pack years: 13.50 Types: Cigarettes Start date: 12/01/1989 Passive exposure: Current Smokeless tobacco: Former Types: Chew Tobacco comments: Patient now smokes about 5 a day as of 07/29/23 currently smoking 1/4 PPD as of 09/10/18 Substance Use Topics Alcohol use: Yes Comment: twice per month - get drunk Drug use: Yes Frequency: 7.0 times per week Types: Marijuana FAMILY HISTORY Problem Relation Age of Onset Multiple Sclerosis Mother Cancer Father unknown - stomach Cancer Sister appendix and possible throat cancer Hypertension Maternal Grandmother other (ulcers) Maternal Grandmother Heart Maternal Grandfather Diabetes Maternal Grandfather Cancer Sister uteran Multiple Sclerosis Maternal Aunt I spent a total of 30 minutes on the date of the service which included preparing to see the patient, [id number] patient care, completing clinical documentation, obtaining and/or reviewing separately obtained history, performing a medically appropriate examination, counseling and educating the patient/family/caregiver, ordering medications, tests, or procedures, independently interpreting results (not separately reported), communicating results to the patient/family/caregiver, and care coordination (not separately reported). Rich Hill MD, CPE Hematology [facility] Oncology Services Provided at: [place], [place] Scribe Attestation: This note was scribed by Barbara Wren on December 18, 2023 under the direction and supervision of Dr. Rich Hill. I attest that all of the information documented is correct to the best of my knowledge. Provider Attestation: I, Rich Hill MD, attest that all information documented by the above scribe is correct, and was supervised by me and under my direction. CC: SELF No primary care provider on file. No primary provider on file. documented in this encounter [facility] 12-18-2023 Note HNO ID: [id number] Author: RICH HILL MD Service: ? Author Type: Physician Type: Progress Notes Filed: 12/20/2023 18:23 Note Text: NAME: Joselyn Carnes [facility] NO.: [id number] DATE OF SERVICE: December 18, 2023 (Liz) Some elements in this clinic note that are critical to medical decision making have been carefully reviewed and included from a prior clinic note dated: August 17, 2023 (Liz) Referring Provider: Dhruv Additional Clinicians involved in Joselyn Carnes's care: DIAGNOSIS: Refractory Hodgkin's disease Nodular Lymphocyte-predominent Hodgkin's Lymphoma ASSESSMENT: 43 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 After 6 x ABVD with CR and underwent consolidative RT to left inguinal nodes as well as T-spine. Unfortunately pruritus and lymphadenopathy heralded relapse in May 2016 and he underwent ICE x 3 followed by ASCT February 04, 2017. He was lost to follow up until 2019 when he had several imaging studies for dyspnea and spinal stenosis. He was again lost to follow up until when had recurring neck and groin pain in october 2022 and PET scan showed recurrence. However, he has had multiple issues with substance abuse and I don't see where he has had any oncologic workup since October 2022. Now continues to have fullness in the neck and palpable LN in right groin. PET showed only uptake in the tonsils and I will send him for ENT evaluation. He was addicted and using in July but has cleaned up - we will repeat PET/CT since it has been more than 4 months, and he can see ENT afterwards. PLAN: PET/CT with labs Triage to call results Referral to ENT Referral to palliative med RTC after ENT consultation and workup - about 8 weeks HPI: CASE HISTORY: Reverse Chronological Order 08/12/2023 - PET/CT : Deauville Score: 4 HEAD/NECK: Diffuse uptake in the bilateral tonsillar regions. Mildly hypermetabolic bilateral cervical lymph nodes. 01/06/2023 - CT Lumbar Spine: Diffuse degenerative arthritis in the lumbar spine. 01/06/2023 - CT Cervical Spine: Disc degenerative disease in the cervical spine with particularly involvement of C5-C6 and C6-C7. Chronic bilateral maxillary sinusitis. 11/29/2022 - XR Chest: Lungs are clear. Small right effusion. No pleural effusion, pneumothorax, nor volume loss. Heart and mediastinal structures are unremarkable. Pulmonary vasculature stable. No significant change. 11/11/2022 - PET/CT: Deauville level 5 lymph nodes in the bilateral neck, as well as in the proximal left upper extremity. Deauville level 2 bilateral inguinal lymph nodes. Deauville level 2 right middle lobe lung mass. 12/06/2018 - MRI Brain: No acute infarct. 12/05/2018 - MRI Cervical Spine: Mild spinal canal stenosis, moderate right and mild left neural foraminal narrowing at C5-6 secondary to a disc bulge and uncovertebral overgrowth. Mild spinal canal stenosis and mild bilateral neural foraminal narrowing at C6-7 secondary to a disc bulge and uncovertebral overgrowth. 12/03/2018 - XR Chest: Persistent mild right pleural effusion with associated basilar atelectasis. Redemonstration of mild left hilar prominence which may be again further assessed by contrast-enhanced chest CT. 07/11/2018 - CT Chest: Suboptimal contrast opacification however no evidence of pulmonary embolism. Irregularity of right axillary vein with multiple collaterals extending proximal to the site that could indicate venous stenosis or thrombosis. Further assessment with ultrasound should be considered. Moderate size right effusion with mucus plugging and atelectasis right lung base and additional smaller sites of subsegmental atelectasis. 01/2017 - Received ASCT with no major complications Protocol(s):3422 1M Preparative regimen: BEAM Mobilization regimen: Plerixafor AND Neupogen Stem cell source: Apharesis CD34 cell dose (x10e6/kg): Date of transplant: 02/04/201706/2016-10/2016 - Received a total of 3 cycles of ICE. He has been compliant with therapy. Continued to take oxycodone for back pain. PET scan shows complete metabolic response. Echocardiogram notable for mildly depressed ejection fraction. 06/2016 - Cervical lymph node biopsy: - Recurrent nodular lymphocyte-predominant Hodgkin lymphoma. 05/2016 - PET/CT: Extensive hypermetabolic lymphadenopathy, splenic and skeletal involvement. 04/2016 - Continued back pain despite XRT. Pruritus has returned. Enlarging left groin lymph nodes. Dr. Ceballos recommended referral here for further evaluation. 11/2015 - PET/CT: Showed complete metabolic response. Summer 2015 - Developed recurrent pruritis. 12/2015-03/2016 - Received 3420 Gy in 20 fractions to left pelvic lymph nodes and 1200 Gy in 10 fractions to T12-L3 spine 07/2015- (more content not included)... [facility] 12-15-2023 History of Present illness Narrative Images from the original note were not included. [address] [place] [address] SUBJECTIVE: Patient ID: Joselyn Carnes is a 43 y.o. male. Chief Complaint Patient presents with Hip Pain Pain scale pain scale 7 Presents for chronic left hip pain. He is not exactly sure how long has been occurring but states long time . He denies any type of trauma. He has ran out of gabapentin and muscle relaxer. Hip Pain The incident occurred more than 1 week ago. There was no injury mechanism. The pain is present in the left thigh and left hip. The pain is at a severity of 7/10. The pain has been Fluctuating since onset. Associated symptoms include muscle weakness and tingling. He reports no foreign bodies present. The symptoms are aggravated by movement, palpation and weight bearing. He has tried NSAIDs, non-weight bearing and rest for the symptoms. The treatment provided moderate relief. The following portions of the patient's history were reviewed and updated as appropriate: allergies, current medications, past family history, past medical history, past social history, past surgical history and problem list. Past Surgical History: Procedure Laterality Date APPENDECTOMY CENTRAL VENOUS CATHETER TUNNELED INSERTION SINGLE LUMEN right femoral CHEST TUBE INSERTION x3 LYMPH NODE BIOPSY x3-4 times PORT A CATH REMOVAL x2 Past Medical History: Diagnosis Date Blood clot in vein 2019 Cancer ([facility]) Lymphoma ([facility]) hodgkins Immunization History Administered Date(s) Administered COVID-19, mRNA, LNP-S, PF, 100mcg/0.5mL Dose 07/15/2021, 08/26/2021 Hep A / Hep B 09/10/2018, 12/20/2018 Hib ([facility]) 08/10/2018, 09/10/2018, 12/20/2018 Influenza, Injectable, Quadrivalent 03/12/2017 Influenza, Injectable, quadrivalent (PF) 07/21/2018 Pneumococcal Conjugate 13-Valent 12/20/2018 Pneumococcal Polysaccharide 07/21/2018 Td (adult), 5 Lf tetanus toxoid, preservative free, adsorbed 12/20/2018 Tdap 09/01/2015, 08/10/2018, 09/10/2018, 01/03/2021 Zoster Vaccine Recombinant 08/10/2018, 12/20/2018 REVIEW OF SYSTEMS: Review of Systems Constitutional: Negative for chills, fatigue and fever. HENT: Negative for hearing loss and trouble swallowing. Eyes: Negative for pain and visual disturbance. Respiratory: Negative for cough, chest tightness and shortness of breath. Cardiovascular: Negative for chest pain, palpitations and leg swelling. Gastrointestinal: Negative for blood in stool. Endocrine: Negative for polydipsia, polyphagia and polyuria. Genitourinary: Negative for difficulty urinating, dysuria, flank pain, hematuria, scrotal swelling and testicular pain. Musculoskeletal: Positive for arthralgias. Skin: Negative. Neurological: Positive for tingling. Negative for seizures, syncope and headaches. Hematological: Does not bruise/bleed easily. Psychiatric/Behavioral: Negative. PHYSICAL EXAMINATION: Vitals: 12/15/23 1351 BP: 122/72 BP Site: Right Arm BP Postition: Sitting Pulse: 86 Resp: 20 Temp: 36.7 C (98.1 F) TempSrc: Oral SpO2: 97% Weight: 95.3 kg (210 lb) Height: 184.5 cm (6' 0.64 ) Patient noted to have elevated BMI and the following intervention(s) were applied: encouragement to exercise. Physical Exam Vitals and nursing note reviewed. Constitutional: General: He is not in acute distress. Appearance: He is well-developed. HENT: Head: Normocephalic and atraumatic. Right Ear: Tympanic membrane and external ear normal. Left Ear: Tympanic membrane and external ear normal. Nose: Nose normal. Mouth/Throat: Mouth: Mucous membranes are moist. Pharynx: No oropharyngeal exudate. Eyes: General: No scleral icterus. Right eye: No discharge. Left eye: No discharge. Conjunctiva/sclera: Conjunctivae normal. Pupils: Pupils are equal, round, and reactive to light. Neck: Vascular: No JVD. Cardiovascular: Rate and Rhythm: Normal rate and regular rhythm. Heart sounds: Normal heart sounds. No murmur heard. No friction rub. No gallop. Pulmonary: Effort: Pulmonary effort is normal. No respiratory distress. Breath sounds: Normal breath sounds. Chest: Chest wall: No tenderness. Abdominal: General: Bowel sounds are normal. There is no distension. Palpations: Abdomen is soft. There is no mass. Tenderness: There is no abdominal tenderness. There is no guarding or rebound. Hernia: No hernia is present. Musculoskeletal: General: No tenderness. Normal range of motion. Cervical back: Normal range of motion and neck supple. Lymphadenopathy: Cervical: No cervical adenopathy. Skin: General: Skin is warm and dry. Capillary Refill: Capillary refill takes less than 2 seconds. Findings: No rash. Neurological: Mental Status: He is alert and oriented to person, place, and time. Deep Tendon Reflexes: Reflexes are normal and symmetric. Psychiatric: Mood and Affect: Mood normal. Behavior: Behavior normal. Thought Content: Thought content normal. Judgment: Judgment normal. ASSESSMENT/PLAN: Joselyn was seen today for hip pain. Diagnoses and all orders for this visit: Chronic pain syndrome - gabapentin (NEURONTIN) 300 mg capsule; Take 1 capsule (300 mg total) by mouth 3 (three) times a day. Chronic left hip pain - gabapentin (NEURONTIN) 300 mg capsule; Take 1 capsule (300 mg total) by mouth 3 (three) times a day. - X-ray hip left 2-3 views with or without pelvis; Future - predniSONE (DELTASONE) 10 mg tablet; Take 1 tablet (10 mg total) by mouth See Admin Instructions. 1 tab 2x daily x3 days, 1 tab daily x3 days, 1/2 tablet daily x4 days - ibuprofen (MOTRIN) 800 mg tablet; Take 1 tablet (800 mg total) by mouth every 8 (eight) hours as needed for pain. Muscle spasm - cyclobenzaprine (FLEXERIL) 10 mg tablet; Take 1 tablet (10 mg total) by mouth 2 (two) times a day as needed for muscle spasms. Patient is a current smoker, smoking cessation discussed today in office. He/She is not interested at this time ALL QUESTIONS ANSWERED Total time spent was 25 minutes: Preparing to see the patient (e.g., review of tests) Obtaining and/or reviewing separately obtained history Performing a medically appropriate examination and/or evaluation Counseling and educating the patient/family/caregiver Ordering medications, tests, or procedures Follow-up: 4 months JUVE Cruz 12/16/23 1256 documented in this encounter [facility] 12-15-2023 Instructions JUVE Cruz - 12/15/2023 1:40 PM EDT Are You Ready To Kick The Habit? Free Tobacco Cessation Resources [facility] Services [facility] provide all employees with free tobacco cessation services that include: Counseling to understand nicotine addiction Education about medications that can help you successfully quit Assistance with developing a plan to quit Call to set up an individual appointment or find out when group classes will be held: [facility]: [phone] [facility]: [phone] [facility]: [phone] [facility]: [phone] Quit Smoking Action Plan and Resources [facility] offers an eight-week, online smoking cessation plan to all [facility] employees, regardless of whether [place] is your medical insurance provider. Go to www.[employer].org/employeewelln ess and click the Health Risk Assessment and Resources link to get started. In the [employer]razors menu, click Action Plans instead of Health Risk Assessment to access the Quit Smoking Action Plan. Additional smoking cessation resources are also available to all [facility] employees on the [employer] web page at www.Didi-Dache/quits paddy. [place] Tobacco Cessation Program If [place] is your medical insurance provider, there are more free resources available to you, including: No copays or deductibles on local tobacco cessation counseling services to help you quit Prescription assistance for tobacco cessation medications to help you quit For details about the tobacco cessation program available to [place] members, go to www.[employer] (Search: Tobacco Cessation Program). [place] Tobacco Quit Line 9-082-TJEG-NOW ( ) is a toll-free, telephonic service that helps [place] residents quit smoking and using tobacco. It is staffed by experts who tailor a quit plan for you and provide you with advice. [place] Tobacco Quit Line 3-235-VNVA-NOW ( ) is a toll-free, telephonic service that helps [place] residents quit smoking and using tobacco. It is staffed by experts who tailor a quit plan for you and provide you with advice. Two weeks of nicotine replacement therapy may be provided at no charge, if needed. Additional Resources These national organizations also offer free information and resources to help you quit tobacco: [place] Cancer Society--www.cancer.org/healthy/s tayawayfromtobacco [place] Heart Association--www.heart.org (Search: Quit Smoking) Centers for Disease Control and Prevention--www.cdc.gov/tobacco [place] Lung Association--www.lungusa.org The following attachments cannot be sent through Care Everywhere.Chronic pain ([place])documented in this encounter [facility] 12-09-2023 Note HNO ID: [id number] Author: GERALD SAPP RN Service: ? Author Type: Registered Nurse Type: Progress Notes Filed: 12/09/2023 14:47 Note Text: Palliative Medicine Care Coordination NEW PATIENT NOTE Patient identified by name and date of . YES Spoke with: patient Nurse introduced self and role of Machine Tracer in Palliative Medicine. Office contact sheet provided with office and on-call phone numbers. Reviewed on-call process. Nurse educated patient on medication refill process. Nurse encouraged patient to call with any questions/concerns/symptom related issues. Discussed: met and greeted pt with SW present. Provided contact sheet as well as emergency numbers for crisis/suicide hotlines. Advised pt that SW will reach out to pt with list of local psychiatry resources. Pt reports he is currently under treatment at a residential rehab facility in [facility], but not currently seeing a psychiatry provider as psychiatry services not offered at treatment facility. Encouraged pt to call office with any questions or any need for assistance. All questions/concerns addressed: Yes Gerald Sapp RN [facility] 12-09-2023 History of Present illness Narrative Palliative Medicine Care Coordination NEW PATIENT NOTE Patient identified by name and date of . YES Spoke with: patient Nurse introduced self and role of Machine Tracer in Palliative Medicine. Office contact sheet provided with office and on-call phone numbers. Reviewed on-call process. Nurse educated patient on medication refill process. Nurse encouraged patient to call with any questions/concerns/symptom related issues. Discussed: met and greeted pt with SW present. Provided contact sheet as well as emergency numbers for crisis/suicide hotlines. Advised pt that SW will reach out to pt with list of local psychiatry resources. Pt reports he is currently under treatment at a residential rehab facility in [facility], but not currently seeing a psychiatry provider as psychiatry services not offered at treatment facility. Encouraged pt to call office with any questions or any need for assistance. All questions/concerns addressed: Yes Gerald Sapp RN documented in this encounter [facility] 12-09-2023 Note HNO ID: [id number] Author: LIONEL MALONE LSW Service: ? Author Type: Email Marketing Executive Type: Progress Notes Filed: 12/09/2023 14:25 Note Text: SOCIAL WORK FOLLOW UP NOTE: [facility]ENTER Date of service:12/09/2023 Joselyn Paula RoyalCarnes is being seen for a follow up social work visit. Today's visit includes: patient TOPICS ADDRESSED: mental health needs and community resources PLAN: Continue follow up as needed , Provide emotional support to patient/family, and Referral to community resource F/U APPOINTMENT: PRN Assigned SW listed in Care Team tab: Yes Recieved message from team to see patient for support and possible needed resources. 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 Patient was here today as a consult to Psych. Patient has past history of Hodgkin's and was treated at [facility] in the past. However, he has an appointment at [facility] with Dr. Chun on December 18, 2023. Met with patient in clinic.along with the team. Patient presented alert and oriented, open to the visit. He stated he came to this appointment alone with transportation provided by his insurance. He stated he is in residential treatment, ([facility]) along with his girlfriend of 13 years. His parents are locally and supportive as reported by patient. He stated he recieve SSI and stated I cannot read or write . Patient was assessed and denied having any SI/HI at this time but admits to thoughts often. He stated there is no Psych support at the treatment center. He stated he is willing to do whatever he need to do to get better. He was open to possible community resources. Message left with the center [phone] asking for a return call. Message sent to the social work associate at [facility] asking that she f/u as able. Message left with care team, Shanthi Lu [phone] of [facility]. . Patient was discharged after his clinic appointment. No admission was determined needed at this time. Provided contact information and will f/u appropriately. Lionel Malone CLAIM CLINICIAN [facility] 12-09-2023 History of Present illness Narrative SOCIAL WORK FOLLOW UP NOTE: CANCER CENTER Date of service:12/09/2023 Joselyn Paula RoyalCarnes is being seen for a follow up social work visit. Today's visit includes: patient TOPICS ADDRESSED: mental health needs and community resources PLAN: Continue follow up as needed , Provide emotional support to patient/family, and Referral to community resource F/U APPOINTMENT: PRN Assigned BOGDAN listed in Care Team tab: Yes Recieved message from team to see patient for support and possible needed resources. 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 Patient was here today as a consult to Psych. Patient has past history of Hodgkin's and was treated at [facility] in the past. However, he has an appointment at [facility] with Dr. Chun on December 18, 2023. Met with patient in clinic.along with the team. Patient presented alert and oriented, open to the visit. He stated he came to this appointment alone with transportation provided by his insurance. He stated he is in residential treatment, ([facility]) along with his girlfriend of 13 years. His parents are locally and supportive as reported by patient. He stated he recieve SSI and stated I cannot read or write . Patient was assessed and denied having any SI/HI at this time but admits to thoughts often. He stated there is no Psych support at the treatment center. He stated he is willing to do whatever he need to do to get better. He was open to possible community resources. Message left with the center [phone] asking for a return call. Message sent to the social work associate at [facility] asking that she f/u as able. Message left with care team, Shanthi Lu [phone] of [facility]. . Patient was discharged after his clinic appointment. No admission was determined needed at this time. Provided contact information and will f/u appropriately. PAMELA Daley documented in this encounter [facility] 12-09-2023 Note HNO ID: [id number] Author: TOBI PLATA MD Service: ? Author Type: Physician Type: Progress Notes Filed: 12/09/2023 12:03 Note Text: [facility] Division of Psycho-Oncology Psychiatry Outpatient Visit- New Patient Encounter In-Person Visit Joselyn Carnes 1980 [id number] Visit date: 12/09/2023 . Visit # 1 Established care: 12/09/2023 Referral source: Tobi Plata PCP: No primary care provider on file. Oncologist: Rich Hill MD ASSESSMENT: Joselyn Canres is a 43 year old male with PMH of Hodgkin's Lymphoma diagnosed in June 2015, s/p ASCT in Jan 2017, lost in follow up till 2018, then lost in follow up again till October 2022 for recurring neck and groin pain, with PET indicating recurrence, reported PPH of substance use disorder, who is referred to psycho-oncology service at [facility] for Auditory Hallucinations, ADHD. Patient presented to [facility] psychiatry with concerns for auditory hallucination and generalized homicidal ideation (not towards a specific person). Both concerns appear to be at baseline and well-managed by his coping (staying away from noisy environment). He has not taken Abilify (in his chart) for months, and did not identify any medication to be particularly helpful in the past. Cocaine use preceded auditory hallucination, however AH continued in the absence of cocaine use, reportedly over the past 2 months since he started living [place] He denies depressed mood, anxiety or current suicidal ideation. He does not have access to guns. He is open to establishing care with psychiatry in the community where he has less barriers to care. Reports adequate support from family. Most recent UDS on 10/19/2023 lomax negative. Safety Screening: A safety assessment was completed. Risk factors include: age, male gender, history of self-injury, prior psychiatric hospitalization, and history of violence. Based on this assessment, the patient does not pose an acute risk of harm above their chronically elevated risk. These risks are mitigated by the following protective factors: no current thoughts of suicide, no current thoughts of self-harm, supportive friends and/or family, stable housing, lack of access to lethal means, engagement in care, and now in residential treatment . DIAGNOSIS: (F19.959) Psychoactive substance-induced psychosis (HCC) (primary encounter diagnosis) (F14.21) Cocaine use disorder, severe, in early remission (HCC) (F12.91) Marijuana use disorder in remission (R45.850) Homicidal ideation PLAN: -No indication for psychiatric hospitalization at this time. -I discussed with the patient that his psychosis is most likely related to substance use disorders and likely requires long-term psychiatric management, preferably at a location that is near to where he lives to decrease barriers to access to care (had to cancel appointment with psychiatry multiple times due to transportation issues and had history of no-show) and crisis intervention. Patient expressed understanding and is interested to explore options in the community. Patient met lymphoma social work associate Yair at the end of today's visit who will provide resources for community psychiatry. -Positive reinforcement on staying abstinent from cocaine and marijuana -Letter provided by RN to prove today's visit -I personally called [facility] rehab at [place] at [phone]. Automated voice message told me the facility is closed on Thursday. I did not get to speak with anyone and left and a voice message -Follow-up as needed. Of note this is not a proper referral to [facility] psychiatry as patient is not in active cancer treatment. [facility] psychiatry is happy to work as a gis consultant for cancer related psychiatric concerns after patient establishes care with community psychiatry that can focus on chronic psychotic disorder that is related to substance use. -I discussed safety planning and crisis management. Patient expresses understanding he will go to ER if auditory hallucination worsens and urges to harm others become stronger, more irresistible or specific towards an individual. -The patient was provided with written information on how to reach the clinic between visits as well as a reminder to call 911 or go to the nearest emergency department if an urgent/safety (such as suicidal ideation/plan) issue arises. Note: This dictation was partially generated using Vaur[employer] voice recognition software. While every effort was made to correct voice recognition errors, please kindly be aware that some grammatical or spelling errors may occasionally occur. CHIEF COMPLAINT/REASON FOR VISIT: Establish care Anxiety Auditory hallucination Homicidal ideation HISTORY OF PRESENT ILLNESS: Patient presented to intake appointment on time. He started today's session by I have some fucked up thoughts . When asked about what those (more content not included)... [facility] 12-09-2023 History of Present illness Narrative Images from the original note were not included. [facility] Division of Psycho-Oncology Psychiatry Outpatient Visit- New Patient Encounter In-Person Visit Joselyn Carnes 1980 [id number] Visit date: 12/09/2023 . Visit # 1 Established care: 12/09/2023 Referral source: Tobi Plata PCP: No primary care provider on file. Oncologist: Rich Hill MD ASSESSMENT: Joselyn Carnes is a 43 year old male with PMH of Hodgkin's Lymphoma diagnosed in June 2015, s/p ASCT in Jan 2017, lost in follow up till 2018, then lost in follow up again till October 2022 for recurring neck and groin pain, with PET indicating recurrence, reported PPH of substance use disorder, who is referred to psycho-oncology service at [facility] for Auditory Hallucinations, ADHD. Patient presented to [facility] psychiatry with concerns for auditory hallucination and generalized homicidal ideation (not towards a specific person). Both concerns appear to be at baseline and well-managed by his coping (staying away from noisy environment). He has not taken Abilify (in his chart) for months, and did not identify any medication to be particularly helpful in the past. Cocaine use preceded auditory hallucination, however AH continued in the absence of cocaine use, reportedly over the past 2 months since he started living at residential place ([facility]). He denies depressed mood, anxiety or current suicidal ideation. He does not have access to guns. He is open to establishing care with psychiatry in the community where he has less barriers to care. Reports adequate support from family. Most recent UDS on 10/19/2023 lomax negative. Safety Screening: A safety assessment was completed. Risk factors include: age, male gender, history of self-injury, prior psychiatric hospitalization, and history of violence. Based on this assessment, the patient does not pose an acute risk of harm above their chronically elevated risk. These risks are mitigated by the following protective factors: no current thoughts of suicide, no current thoughts of self-harm, supportive friends and/or family, stable housing, lack of access to lethal means, engagement in care, and now in residential treatment . DIAGNOSIS: (F19.959) Psychoactive substance-induced psychosis (HCC) (primary encounter diagnosis) (F14.21) Cocaine use disorder, severe, in early remission (HCC) (F12.91) Marijuana use disorder in remission (R45.850) Homicidal ideation PLAN: -No indication for psychiatric hospitalization at this time. -I discussed with the patient that his psychosis is most likely related to substance use disorders and likely requires long-term psychiatric management, preferably at a location that is near to where he lives to decrease barriers to access to care (had to cancel appointment with psychiatry multiple times due to transportation issues and had history of no-show) and crisis intervention. Patient expressed understanding and is interested to explore options in the community. Patient met lymphoma social work associate Yair at the end of today's visit who will provide resources for community psychiatry. -Positive reinforcement on staying abstinent from cocaine and marijuana -Letter provided by RN to prove today's visit -I personally called [facility] rehab at [place] at [phone]. Automated voice message told me the facility is closed on Thursday. I did not get to speak with anyone and left and a voice message -Follow-up as needed. Of note this is not a proper referral to [facility] psychiatry as patient is not in active cancer treatment. [facility] psychiatry is happy to work as a gis consultant for cancer related psychiatric concerns after patient establishes care with community psychiatry that can focus on chronic psychotic disorder that is related to substance use. -I discussed safety planning and crisis management. Patient expresses understanding he will go to ER if auditory hallucination worsens and urges to harm others become stronger, more irresistible or specific towards an individual. -The patient was provided with written information on how to reach the clinic between visits as well as a reminder to call 911 or go to the nearest emergency department if an urgent/safety (such as suicidal ideation/plan) issue arises. Note: This dictation was partially generated using Vaur[employer] voice recognition software. While every effort was made to correct voice recognition errors, please kindly be aware that some grammatical or spelling errors may occasionally occur. CHIEF COMPLAINT/REASON FOR VISIT: Establish care Anxiety Auditory hallucination Homicidal ideation HISTORY OF PRESENT ILLNESS: Patient presented to intake appointment on time. He started today's session by I have some fucked up thoughts . When asked about what those thoughts are, patient states I want to hurt people . 'I wanna get some help before something happens . When asked how he might do it, patient states stab and choke people . I asked the patient what keeps him from harming people, he states Fighting against the voice . His coping is to stay away from people . Patient denies he has a specific target/person she wants to harm. Patient denies having access to guns and states I do not plan to get one. Patient reports he has been hearing voices for a few years . Patient reports it is hard to tell the gender of the voices. He hears voices from multiple people that he do not know. Voices can be commanding in nature at times but he has learned to ignore them. He denies history of responding to voices. Voices get stronger when he is angry. Upon clarifying the timeline of substance use disorder and auditory hallucination, patient reports his cocaine use preceded AH, however AH has been worsening over the past few years. Auditory hallucination continues in the absence of cocaine use (reportedly over the past 2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 scan with involvement in chest, abdomen, pelvis, and spine. ABVD x 6 cycles. Patient mentions not receiving one of the medications because of shortage - not mentioned in records. Course complicated by IJ occlusion requiring removal of port, started AC. Continues on eloquis. Completion PET scan demonstrated CR Deauville 1 06/2015 - Increasing back pains and night sweats. Initiatlly just given symptomatic treatement without much improvement. PCP then ordered MRI demonstrated osseous lesions concerning for mets and RP LAD. Sent for CT A/P showing diffuse LAD. No CT chest in outside records. 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 Findings suspicious for bronchopneumonia. Blunting of the right costophrenic angle. This is indeterminate for pleural fluid versus chronic scarring. A report from 2006 indicates a similar finding although those images are not available at the time of this dictation. Minimal left pleural effusion also suspected. Updated Visit, August 17, 2023: Joselyn returns today for follow up. We looked at his recent PET scan, showed uptake in tonsillar region. He denies a sore throat and does not have any natural teeth. I suggest seeing ENT. He saw palliative care and was prescribed Butrans patches. Initial Visit, July 29, 2023: Joselyn Carnes presents today Hematology and Oncology evaluation. 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 Currently has sweats and fatigue as well as painful lymph nodes. PET in October 2022 was c/w relapse but I'm not sure why he hasn't had care since then. (Possibly incarcerated). He endorses fatigue and sweats for past few months. He smokes 5 cigarettes a day, marijuana, and uses cocaine for managing pain. REVIEW OF SYSTEMS Per HPI and otherwise negative by full review of organ systems. ECOG PERFORMANCE STATUS: 1 PHYSICAL EXAMINATION: Vitals: BP 116/61 Pulse 65 Temp (Src) 97.7 (Temporal) Resp 16 Ht 6' .992 (1.85m) Wt 194 lb 3.6 oz (88.1kg) SpO2 100% BMI 25.63 kg/(m^2). Body surface area is 2.13 meters squared. Exam limited to gross visualization where appropriate. Gen.: This is an age-appropriate patient in no acute distress. Aime: Negative for suboccipital, cervical, submandibular, supraclavicular, axillary, epitrochlear LN chains. No hepatosplenomegaly. Only palpable lymph node is in right groin, 2cm. Left groin was radiated, no palpable lymph nodes. Head: Appears atraumatic with no visible lesions. Eyes: Pupils equally round and reactive to light, extraocular muscles are intact. Neck: Supple. Respiratory: Appears to be respiring comfortably. Neurologic: Nonfocal to gross visualization. Alert and oriented 3. Psychiatric: No evidence of inappropriate anxiety or depression. Skin: Visible areas of skin without rash, lesions, wounds or petechiae. ALLERGIES: ALLERGIES Allergen Reactions Bactrim [Sulfametho* Hives Itching Patient denied any reaction history or allergy to Bactrim or Sulfa during history obtained on 07/14/18; please see Allergy consult note from that date for further details. Amoxicillin Swelling Facial swelling; Negative penicillin skin testing on 07/14/18. Please see allergy consult note from that date. recommend test dosing PCN prior to administration. MEDICATIONS: buprenorphine (BUTRANS) 5 mcg/hour Apply 1 Patch as directed one time a week for 30 days. senna-docusate (SENNA-S) 8.6-50 mg per tablet Take 1 tablet by mouth once daily. OLANZapine (ZYPREXA) 5 mg tablet Take 1 tablet by mouth daily at bedtime. ARIPiprazole (ABILIFY) 10 mg tablet Take 10 mg by mouth. ibuprofen (MOTRIN) 800 mg tablet Take 800 mg by mouth. LABORATORY VALUES: WBC (k/uL) Date Value 08/12/2023 4.69 RBC (m/uL) Date Value 08/12/2023 4.86 Hemoglobin (g/dL) Date Value 08/12/2023 14.8 Hematocrit (%) Date Value 08/12/2023 43.2 MCV (fL) Date Value 08/12/2023 88.9 MCH (pg) Date Value 08/12/2023 30.5 MCHC (g/dL) Date Value 08/12/2023 34.3 RDW-CV (%) Date Value 08/12/2023 12.6 Platelet Count (k/uL) Date Value 08/12/2023 223 MPV (fL) Date Value 08/12/2023 9.1 Glucose (mg/dL) Date Value 08/12/2023 87 BUN (mg/dL) Date Value 08/12/2023 21 Creatinine (mg/dL) Date Value 08/12/2023 1.14 Sodium (mmol/L) Date Value 08/12/2023 139 Potassium (mmol/L) Date Value 08/12/2023 4.2 Chloride (mmol/L) Date Value 08/12/2023 103 CO2 (mmol/L) Date Value 08/12/2023 26 Protein, Total (g/dL) Date Value 08/12/2023 7.4 Albumin (g/dL) Date Value 08/12/2023 5.0 (H) Calcium, Total (mg/dL) Date Value 08/12/2023 9.9 Alkaline Phosphatase (U/L) Date Value 08/12/2023 96 Bilirubin, Total (mg/dL) Date Value 08/12/2023 0.4 AST (U/L) Date Value 08/12/2023 49 (H) ALT (U/L) Date Value 08/12/2023 100 (H) Cholesterol, Total (mg/dL) Date Value 12/08/2016 219 (H) Triglyceride (mg/dL) Date Value 12/08/2016 122 DIAGNOSIS: (C81.08) 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) (primary encounter diagnosis) Plan: CONSULT TO ENT (J03.90) Tonsillitis Plan: CONSULT TO ENT (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) Plan: CONSULT TO ENT (R93.89) Abnormal finding on imaging Plan: CONSULT TO ENT PAST MEDICAL HISTORY Diagnosis Date Blood clot due to device, implant, or graft 11/18/2016 Cellulitis both feet - staph infection Hodgkin's disease (HCC) 11/18/2016 PAST SURGICAL HISTORY Procedure Laterality Date APPENDECTOMY BIOPSY LYMPH NODE NEEDLE PORTOCATH PLACEMENT UNSPECIFIED ORAL SURGERY PROCEDURE, BY REPORT all teeth removed Social History Tobacco Use Smoking status: Every Day Packs/day: 0.50 Years: 27.00 Additional pack years: 0.00 Total pack years: 13.50 Types: Cigarettes Start date: 12/01/1989 Passive exposure: Current Smokeless tobacco: Former Types: Chew Tobacco comments: Patient now smokes about 5 a day as of 07/29/23 currently smoking 1/4 PPD as of 09/10/18 Substance Use Topics Alcohol use: Yes Comment: twice per month - get drunk Drug use: Yes Frequency: 7.0 times per week Types: Marijuana FAMILY HISTORY Problem Relation Age of Onset Multiple Sclerosis Mother Cancer Father unknown - stomach Cancer Sister appendix and possible throat cancer Hypertension Maternal Grandmother other (ulcers) Maternal Grandmother Heart Maternal Grandfather Diabetes Maternal Grandfather Cancer Sister uteran Multiple Sclerosis Maternal Aunt I spent a total of 30 minutes on the date of the service which included preparing to see the patient, [id number] patient care, completing clinical documentation, obtaining and/or reviewing separately obtained history, performing a medically appropriate examination, counseling and educating the patient/family/caregiver, ordering medications, tests, or procedures, independently interpreting results (not separately reported), communicating results to the patient/family/caregiver, and care coordination (not separately reported). Rich Hill MD, CPE Hematology and Oncology Services Provided at: [place], [place] Scribe Attestation: This note was scribed by Barbara Wren on August 17, 2023 under the direction and supervision of Dr. Rich Hill. I attest that all of the information documented is correct to the best of my knowledge. Provider Attestation: I, Rich Hill MD, attest that all information documented by the above scribe is correct, and was supervised by me and under my direction. CC: SELF No primary care provider on file. No primary provider on file. documented in this encounter [facility] 08-12-2023 Miscellaneous Notes Prior Authorization Documentation Prior authorization requested for: MEDICATION Butran 5 mcg TD patch Submitted via Cover AVA[employer]ais[email or web address] Insurance Company Name: [employer] and Pharmacy Name: [facility] Authorization approval #: AWAITING DETERMINATION Dates of Approval: from ? to ? Patient Assistance Needed: Yes, patient updated. Time Spent 20 Marialuisa Portillo RN August 12, 2023 documented in this encounter [facility] 08-12-2023 History of Present illness Narrative RADIOLOGY SERVICE PROGRESS NOTE SERVICE DATE: 08/12/2023 SERVICE TIME: 3:04 PM PATIENT IDENTITY VERIFICATION COMPLETED USING TWO (2) STANDARD IDENTIFIERS: Name and Date of confirmed by patient verbally POST EXAM PIV STATUS: Discontinued PROCEDURE TYPE: NM INJECT: PET/CT WHOLE BODY SCAN. 10.8 mCi F18 FDG. No other medications given.. ADMINISTRATION TIME: 1250 PATIENT DISCHARGED TO: Ambulatory patient, left NM department area. A Diagnostic radioactive procedure has taken place, with no further precautions necessary other than routine body substance precautions. More information regarding radiation safety can be found using this link: [email or web address] SIGNATURE: RT Diana(R) PATIENT NAME: Joselyn Carnes DATE: August 12, 2023 TIME: 3:04 PM PAGER/CONTACT #: documented in this encounter [facility] 08-11-2023 Instructions Simran Nelson APRN.HERACLIO - 08/11/2023 3:19 PM EST Simran Nelson CNP Department of Palliative and Supportive Care Palliative Care - Specialty services in symptom management and support For questions or prescription refills, call: [phone] Thursday - Thursday 9AM-5PM BISHOP Baldwin, RN - Machine Tracer Please call 3-5 days in advance for medication refills Evenings, Weekends, Holidays: [phone] (ask for palliative medicine on-call provider) For appointments, cancellations or reschedule, call: [phone] documented in this encounter [facility] 08-11-2023 History of Present illness Narrative PALLIATIVE MEDICINE INITIAL CONSULT SERVICE DATE: 08/11/2023 Referring Physician: Rich Hill MD [address] [place] [address] [place] [id number] Medical Oncologist: Rich Hill MD Primary Physician: No primary care provider on file. REASON FOR CONSULT: Pain management Subjective Joselyn Carnes is a 43 year old male with history of Nodular lymphocyte predominant Hodgkin's Lymphoma diagnosed in June 2015 after biopsying left inguinal LN. After 6 x ABVD with CR and underwent consolidative RT to left inguinal nodes as well as T-spine. Unfortunately pruritus and lymphadenopathy heralded relapse in May 2016 and he underwent ICE x 3 followed by ASCT February 04, 2017. He was lost to follow up until 2019 when he had several imaging studies for dyspnea and spinal stenosis. He was again lost to follow up until when had recurring neck and groin pain in october 2022 and PET scan showed recurrence. However, he has had multiple issues with substance abuse and I don't see where he has had any oncologic workup since October 2022. Now continues to have fullness in the neck and palpable LN in right groin. . PET in October 2022 was c/w relapse but I'm not sure why he hasn't had care since as he was incarcerated. He endorses fatigue and sweats for past few months. He smokes 5 cigarettes a day, marijuana, and uses cocaine for managing pain. It is easier for me to get street drugs than have a prescription written . Last prescribed Percocet 01/04 and last prescribed Gabapentin 06/06 Pain is described as a constant ache in hips and groin area, consistent with imaging showing large adenopathy in the area and some hip OA. Has lost about 30 pounds in the last year, he feels his appetite is at baseline, no nausea, vomiting, diarrhea, or constipation. He admits to increased anxiety due to health. He has a longstanding history of anxiety, depression, and ADHD his mental health care has been intermittent. He is using Abilify at night to help him sleep. He admits to auditory hallucinations at night, I don't know what they are saying, but I hear people talking, makes it hard to sleep . He has no homicidal or suicidal ideation. PAST MEDICAL HISTORY: PAST MEDICAL HISTORY Diagnosis Date Blood clot due to device, implant, or graft 11/18/2016 Cellulitis both feet - staph infection Hodgkin's disease (HCC) 11/18/2016 PAST SURGICAL HISTORY: PAST SURGICAL HISTORY Procedure Laterality Date APPENDECTOMY BIOPSY LYMPH NODE NEEDLE PORTOCATH PLACEMENT UNSPECIFIED ORAL SURGERY PROCEDURE, BY REPORT all teeth removed CURRENT MEDICATIONS: ARIPiprazole (ABILIFY) 10 mg tablet Take 10 mg by mouth. ibuprofen (MOTRIN) 800 mg tablet Take 800 mg by mouth. cyclobenzaprine (FLEXERIL) 10 mg tablet Take 10 mg by mouth. (Patient not taking: Reported on 07/29/2023) naltrexone 50 mg tablet Take 50 mg by mouth. (Patient not taking: Reported on 07/29/2023) oxyCODONE-acetaminophen (PERCOCET) 5-325 mg tablet Take 1 tablet by mouth every 4 hours as needed. (Patient not taking: Reported on 07/29/2023) ALLERGIES: ALLERGIES Allergen Reactions Bactrim [Sulfametho* Hives Itching Patient denied any reaction history or allergy to Bactrim or Sulfa during history obtained on 07/14/18; please see Allergy consult note from that date for further details. Amoxicillin Swelling Facial swelling; Negative penicillin skin testing on 07/14/18. Please see allergy consult note from that date. recommend test dosing PCN prior to administration. FAMILY HISTORY: FAMILY HISTORY Problem Relation Age of Onset Multiple Sclerosis Mother Cancer Father unknown - stomach Cancer Sister appendix and possible throat cancer Hypertension Maternal Grandmother other (ulcers) Maternal Grandmother Heart Maternal Grandfather Diabetes Maternal Grandfather Cancer Sister uteran Multiple Sclerosis Maternal Aunt SOCIAL HISTORY: Drug Use: Yes, patient uses Marijuana drugs approximately 7 times per week , last used caocaine 4 days ago for pain control Alcohol Use: Yes (twice per month - get drunk) Tobacco Use: .5 packs/day, for 27 years. Types: Cigarettes, Chew REVIEW OF SYSTEMS: Modified ESAS ([place] Symptom Assessment Scale): Information Provided By: Patient Pain: Severe Nausea: None Loss of Appetite: None Constipation: None Shortness of Breath: None Drowsiness: None Tiredness: Mild Depression: None Anxiety: Moderate Review of Systems Constitutional: Positive for appetite change. Negative for activity change and unexpected weight change. HENT: Negative for trouble swallowing and voice change. Eyes: Negative for pain, discharge and visual disturbance. Respiratory: Negative for cough, chest tightness and shortness of breath. Cardiovascular: Negative for chest pain, palpitations and leg swelling. Gastrointestinal: Positive for abdominal pain. Negative for abdominal distention, blood in stool, constipation, diarrhea and nausea. Endocrine: Negative for polyuria. Genitourinary: Negative for difficulty urinating, dysuria, enuresis and hematuria. Skin: Negative. Neurological: Negative for dizziness, tremors, speech difficulty, weakness and headaches. Psychiatric/Behavioral: Negative for confusion, sleep disturbance and suicidal ideas. The patient is not nervous/anxious. All other systems reviewed and are negative. Objective ECOG PERFORMANCE STATUS: 0- Fully active, able to carry on all pre-disease performance w/o restriction. PHYSICAL EXAMINATION: Vital signs: BP 129/71 Pulse 67 Temp 36.6 C (97.9 F) (Temporal) Resp 16 Ht 185.4 cm (6' 0.99 ) Wt 84.2 kg (185 lb 10 oz) SpO2 100% BMI 24.50 kg/m Last 1 Encounter Temp Readings: Date: Temp: Temp Src: 08/11/2023 36.6 C (97.9 F) Temporal Last 1 Encounter Resp Readings: Date: Resp: 08/11/2023 16 Last 1 Encounter Pulse Readings: Date: Pulse: 08/11/2023 67 Last 1 Encounter BP Readings: Date: BP: 08/11/2023 129/71 Physical Exam Constitutional: Appearance: He is well-groomed. HENT: Head: Normocephalic and atraumatic. Jaw: There is normal jaw occlusion. Right Ear: Hearing and external ear normal. Left Ear: Hearing and external ear normal. Nose: Nose normal. Mouth/Throat: Lips: [place]. Mouth: Mucous membranes are moist. No oral lesions. Eyes: General: Lids are normal. Gaze aligned appropriately. Extraocular Movements: Extraocular movements intact. Conjunctiva/sclera: Conjunctivae normal. Neck: Thyroid: No thyroid mass. Cardiovascular: Rate and Rhythm: Normal rate and regular rhythm. Pulses: Normal pulses. Heart sounds: Normal heart sounds. Pulmonary: Effort: Pulmonary effort is normal. Abdominal: General: Abdomen is flat. Bowel sounds are normal. Palpations: Abdomen is soft. Musculoskeletal: General: No swelling, tenderness or deformity. Normal range of motion. Right shoulder: Normal. Left shoulder: Normal. Right upper arm: Normal. Left upper arm: Normal. Cervical back: Full passive range of motion without pain. Right lower leg: No edema. Left lower leg: No edema. Skin: General: Skin is warm and dry. Capillary Refill: Capillary refill takes less than 2 seconds. Findings: No rash. Neurological: General: No focal deficit present. Mental Status: He is alert and oriented to person, place, and time. Psychiatric: Attention and Perception: Attention normal. Mood and Affect: Mood normal. Speech: Speech normal. Behavior: Behavior normal. Behavior is cooperative. Thought Content: Thought content normal. Cognition and Memory: Cognition and memory normal. Judgment: Judgment normal. DATA: Diagnostic tests reviewed for today's visit: Most recent labs and imaging results. CrCl cannot be calculated (Patient's most recent lab result is older than the maximum 180 days allowed.). Opioid Management: Yes Indication for Opioid Prescribing: Cancer related pain Review of previous pain treatment and response to treatment completed?: Yes How much does pain impede patient s ability to engage in work or other purposeful activities, interfere with your activities of daily living, physical activity, or quality of your family life and social activities? Significantly Objective goals of treatment:Improved comfort and function based on an ongoing functional assessment Rationale for medication choice and dosage: Based on a review of patient's previous therapies, diagnosis, goals of therapy and an assessment of the risks and benefits of using opioid therapy Expected duration of treatment: At least three months, based on an ongoing assessment at least every three months ORT-OUD Score: 4 A score of 3 or higher may indicate a higher risk for future development of aberrant drug related behavior or opioid use disorder. History of substance misuse or substance use disorder?: No and Yes, urine panel ordered today OARRS checked?: Yes, no abberancy Naloxone offered?: Yes, accepted Prescribed Morphine Equivalent Daily Dose (MEDD): Yes > 50 MEDD Yes, I am certified in Hospice and Palliative Care, Hematology, Medical Oncology or Pain Medicine Chronic Opioid Management Agreement and Informed Consent: Signed today Simran Nelson NP, [email or web address].[email or web address] FITTER Assessment & Plan (Z51.5) Palliative care by specialist (primary encounter diagnosis) - Introduced philosophy of palliative medicine - Discussed services offered by [facility] - Provided support - Discussed goals of care and how they align with current plan of care - Discussed / described code status and implications while in the hospital - PT remains Full Code (C81.09) 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) (G89.3) Neoplasm related pain (K59.03) Drug-induced constipation (Z79.891) Opioid contract exists (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 Transdermal Butrans is less likely to contribute to respiratory depression, Joselyn has a documented diagnosis of chronic pain severe enough to require daily, [id number], prison opioid treatment AND ? Alternative treatment options are ineffective, not tolerated, or would be otherwise inadequate to provide sufficient management of pain (i.e., non-opioid analgesics or immediate-release opioids) AND ? Butrans is NOT being used in combination with any other long-acting opioid therapy AND ? Butrans is NOT being used for the treatment of opioid dependence AND ? The patient does NOT have any of the following contraindications to Butrans: Acute or severe bronchial asthma OR known or suspected gastrointestinal obstruction, including paralytic ileus - reviewed narcotic agreement, he will require drug testing every visit - Start buprenorphine (BUTRANS) 5 mcg/hour, - senna-docusate (SENNA-S) 8.6-50 mg per tablet daily, hold for loose stool - PAIN PANEL, UR QUANT, TOX SCREEN ROUT UR (G47.01) Insomnia due to medical condition (F41.9) Anxiety (R44.0) Auditory hallucinations - OLANZapine (ZYPREXA) 5 mg tablet po at bedtime - Continue Abilify - CONSULT TO ONCOLOGY BEHAVIORAL HEALTH Some elements copied from Oncology note on 07/29/23, the elements have been updated and all reflect current decision making from today, 08/11/2023. Existence of Advance Directives: No - not interested Next Visit:4 Weeks in person I spent a total of 45 minutes on the date of the service which included preparing to see the patient, [id number] patient care, completing clinical documentation, obtaining and/or reviewing separately obtained history, performing a medically appropriate examination, counseling and educating the patient/family/caregiver, ordering medications, tests, or procedures, communicating with other HCPs (not separately reported), independently interpreting results (not separately reported), communicating results to the patient/family/caregiver, and care coordination (not separately reported). Recommendations will be communicated back to the consulting service by way of shared electronic medical record. Simran Nelson NP, SPRIGGER.WAIST FITTER August 11, 2023 2:55 PM This note may have been partially generated using the [employer] voice recognition system. While every effort was made to correct voice recognition errors, kindly be aware that some errors may occasionally occur. documented in this encounter [facility] 07-29-2023 Instructions Barbara Wren - 07/29/2023 4:06 PM EST Referral to palliative care PET/CT with labs RTC same day documented in this encounter [facility] 07-29-2023 History of Present illness Narrative Images from the original note were not included. NAME: Joselyn Carnes NO.: [id number] DATE OF SERVICE: July 29, 2023 (Abhyankar) Referring Provider: Self Consultation requested by Self Referred for an opinion regarding Mr. Joselyn Carnes, and my final recommendations will be communicated back to the requesting physician by way of shared medical record or letter via US mail. Additional Clinicians involved in Joselyn Carnes's care: DIAGNOSIS: Refractory Hodgkin's disease Nodular Lymphocyte-predominent Hodgkin's Lymphoma ASSESSMENT: 43 year oldDiagnosed with Nodular lymphocyte predominant Hodgkin's Lymphoma diagnosed in June [address] left inguinal LN. After 6 x ABVD with CR and underwent consolidative RT to left inguinal nodes as well as T-spine. Unfortunately pruritus and lymphadenopathy heralded relapse in May 2016 and he underwent ICE x 3 followed by ASCT February 04, 2017. He was lost to follow up until 2019 when he had several imaging studies for dyspnea and spinal stenosis. He was again lost to follow up until when had recurring neck and groin pain in october 2022 and PET scan showed recurrence. However, he has had multiple issues with substance abuse and I don't see where he has had any oncologic workup since October 2022. Now continues to have fullness in the neck and palpable LN in right groin. PLAN: Referral to palliative care PET/CT with labs RTC same day HPI: CASE HISTORY: Reverse Chronological Order 01/06/2023 - CT Lumbar Spine: Diffuse degenerative arthritis in the lumbar spine. 01/06/2023 - CT Cervical Spine: Disc degenerative disease in the cervical spine with particularly involvement of C5-C6 and C6-C7. Chronic bilateral maxillary sinusitis. 11/29/2022 - XR Chest: Lungs are clear. Small right effusion. No pleural effusion, pneumothorax, nor volume loss. Heart and mediastinal structures are unremarkable. Pulmonary vasculature stable. No significant change. 11/11/2022 - PET/CT: Deauville level 5 lymph nodes in the bilateral neck, as well as in the proximal left upper extremity. Deauville level 2 bilateral inguinal lymph nodes. Deauville level 2 right middle lobe lung mass. 12/06/2018 - MRI Brain: No acute infarct. 12/05/2018 - MRI Cervical Spine: Mild spinal canal stenosis, moderate right and mild left neural foraminal narrowing at C5-6 secondary to a disc bulge and uncovertebral overgrowth. Mild spinal canal stenosis and mild bilateral neural foraminal narrowing at C6-7 secondary to a disc bulge and uncovertebral overgrowth. 12/03/2018 - XR Chest: Persistent mild right pleural effusion with associated basilar atelectasis. Redemonstration of mild left hilar prominence which may be again further assessed by contrast-enhanced chest CT. 07/11/2018 - CT Chest: Suboptimal contrast opacification however no evidence of pulmonary embolism. Irregularity of right axillary vein with multiple collaterals extending proximal to the site that could indicate venous stenosis or thrombosis. Further assessment with ultrasound should be considered. Moderate size right effusion with mucus plugging and atelectasis right lung base and additional smaller sites of subsegmental atelectasis. January,: Received ASCT with no major complications Protocol(s):3422 1M Preparative regimen: BEAM Mobilization regimen: Plerixafor & Neupogen Stem cell source: Apharesis CD34 cell dose (x10e6/kg): Date of transplant: 02/04/2017June - Oct, 2016 Received a total of 3 cycles of ICE. He has been compliant with therapy. Continued to take oxycodone for back pain. PET scan shows complete metabolic response. Echocardiogram notable for mildly depressed ejection fraction. 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 May, PET scan with extensive hypermetabolic lymphadenopathy, splenic and skeletal involvement. April, Continued back pain despite XRT. Pruritus has returned. Enlarging left groin lymph nodes. Dr. Ceballos recommended referral here for further evaluation. November, PET scan showed complete metabolic response. He also had consolidation radiation T12-L3 spine. 2015 Developed recurrent pruritis. December - March, Received 3420 Gy in 20 fractions to left pelvic lymph nodes and 1200 Gy in 10 fractions to T12-L3 spine July - November, Bone marrow biopsy negative for lymphoma involvement. PET scan with involvement in chest, abdomen, pelvis, and spine. ABVD x 6 cycles. Patient mentions not receiving one of the medications because of shortage - not mentioned in records. Course complicated by IJ occlusion requiring removal of port, started AC. Continues on eloquis. Completion PET scan demonstrated CR Deauville June, Increasing back pains and night sweats. Initiatlly just given symptomatic treatement without much improvement. PCP then ordered MRI demonstrated osseous lesions concerning for mets and RP LAD. Sent for CT A/P showing diffuse LAD. No CT chest in outside records. 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 Findings suspicious for bronchopneumonia. Blunting of the right costophrenic angle. This is indeterminate for pleural fluid versus chronic scarring. A report from 2005 indicates a similar finding although those images are not available at the time of this dictation. Minimal left pleural effusion also suspected. Initial Visit, July 29, 2023: Joselyn Paula Carnes presents today Hematology and Oncology evaluation. 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 Currently has sweats and fatigue as well as painful lymph nodes. PET in October 2022 was c/w relapse but I'm not sure why he hasn't had care since then. (Possibly incarcerated). He endorses fatigue and sweats for past few months. He smokes 5 cigarettes a day, marijuana, and uses cocaine for managing pain. REVIEW OF SYSTEMS Per HPI and otherwise negative by full review of organ systems. ECOG PERFORMANCE STATUS: 1 PHYSICAL EXAMINATION: Vitals: BP 125/67 Pulse 59 Temp (Src) 97 (Temporal) Resp 16 Ht 6' 1 (1.85m) Wt 192 lb 7.4 oz (87.3kg) SpO2 99% BMI 25.40 kg/(m^2). Body surface area is 2.12 meters squared. Exam limited to gross visualization where appropriate. Gen.: This is an age-appropriate patient in no acute distress. Aime: Negative for suboccipital, cervical, submandibular, supraclavicular, axillary, epitrochlear LN chains. No hepatosplenomegaly. Only palpable lymph node is in right groin, 2cm. Left groin was radiated, no palpable lymph nodes. Head: Appears atraumatic with no visible lesions. Eyes: Pupils equally round and reactive to light, extraocular muscles are intact. Neck: Supple. Respiratory: Appears to be respiring comfortably. Neurologic: Nonfocal to gross visualization. Alert and oriented 3. Psychiatric: No evidence of inappropriate anxiety or depression. Skin: Visible areas of skin without rash, lesions, wounds or petechiae. ALLERGIES: ALLERGIES Allergen Reactions Bactrim [Sulfametho* Hives Itching Patient denied any reaction history or allergy to Bactrim or Sulfa during history obtained on 07/14/18; please see Allergy consult note from that date for further details. Amoxicillin Swelling Facial swelling; Negative penicillin skin testing on 07/14/18. Please see allergy consult note from that date. recommend test dosing PCN prior to administration. MEDICATIONS: ARIPiprazole (ABILIFY) 10 mg tablet Take 10 mg by mouth. ibuprofen (MOTRIN) 800 mg tablet Take 800 mg by mouth. cyclobenzaprine (FLEXERIL) 10 mg tablet Take 10 mg by mouth. (Patient not taking: Reported on 07/29/2023) naltrexone 50 mg tablet Take 50 mg by mouth. (Patient not taking: Reported on 07/29/2023) oxyCODONE-acetaminophen (PERCOCET) 5-325 mg tablet Take 1 tablet by mouth every 4 hours as needed. (Patient not taking: Reported on 07/29/2023) LABORATORY VALUES: WBC (K/uL) Date Value 08/02/2018 5.1 RBC (m/uL) Date Value 07/22/2018 3.15 (L) Hemoglobin (g/dL) Date Value 08/02/2018 9.5 (A) Hematocrit (%) Date Value 08/02/2018 28.5 (A) MCV (fL) Date Value 07/22/2018 92.7 MCH (pG) Date Value 07/22/2018 30.2 MCHC (g/dL) Date Value 07/22/2018 32.5 RDW-CV (%) Date Value 07/22/2018 13.8 Platelet Count (K/uL) Date Value 08/02/2018 344 MPV (fL) Date Value 07/22/2018 9.9 Glucose (mg/dL) Date Value 07/22/2018 109 (H) BUN (mg/dL) Date Value 07/22/2018 13 Creatinine (MG/DL) Date Value 08/02/2018 1.10 Sodium (mmol/L) Date Value 07/22/2018 134 (L) Potassium (mmol/L) Date Value 07/22/2018 4.5 Chloride (mmol/L) Date Value 07/22/2018 96 (L) CO2 (mmol/L) Date Value 07/22/2018 27 Protein, Total (g/dL) Date Value 07/22/2018 7.2 Albumin (g/dL) Date Value 07/22/2018 3.0 (L) Calcium (mg/dL) Date Value 07/22/2018 9.0 Alkaline Phosphatase (U/L) Date Value 07/22/2018 216 (H) Bilirubin, Total (mg/dL) Date Value 07/22/2018 0.3 AST (U/L) Date Value 07/22/2018 34 ALT (U/L) Date Value 07/22/2018 29 Cholesterol, Total (mg/dL) Date Value 12/08/2016 219 (H) Triglyceride (mg/dL) Date Value 12/08/2016 122 DIAGNOSIS: (C81.08) 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) (primary encounter diagnosis) Plan: NM PET/CT WHOLE BODY SUBSEQUENT, URIC ACID BLOOD, LD LACTATE DEHYDRO, CBC + DIFF, COMP METABOLIC PANEL, HEP REMOTE PANEL BL (G89.3) Cancer associated pain Plan: NM PET/CT WHOLE BODY SUBSEQUENT, URIC ACID BLOOD, LD LACTATE DEHYDRO, CBC + DIFF, COMP METABOLIC PANEL (F17.210) Cigarette smoker one half pack a day or less (Z94.81) s/p 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HCC) Plan: NM PET/CT WHOLE BODY SUBSEQUENT, URIC ACID BLOOD, LD LACTATE DEHYDRO, CBC + DIFF, COMP METABOLIC PANEL, HEP REMOTE PANEL BL PAST MEDICAL HISTORY Diagnosis Date Blood clot due to device, implant, or graft 11/18/2016 Cellulitis both feet - staph infection Hodgkin's disease (HCC) 11/18/2016 PAST SURGICAL HISTORY Procedure Laterality Date APPENDECTOMY BIOPSY LYMPH NODE NEEDLE PORTOCATH PLACEMENT UNSPECIFIED ORAL SURGERY PROCEDURE, BY REPORT all teeth removed Social History Tobacco Use Smoking status: Every Day Packs/day: 0.50 Years: 27.00 Additional pack years: 0.00 Total pack years: 13.50 Types: Cigarettes Start date: 12/01/1989 Passive exposure: Current Smokeless tobacco: Former Types: Chew Tobacco comments: Patient now smokes about 5 a day as of 07/29/23 currently smoking 1/4 PPD as of 09/10/18 Substance Use Topics Alcohol use: Yes Comment: twice per month - get drunk Drug use: Yes Frequency: 7.0 times per week Types: Marijuana FAMILY HISTORY Problem Relation Age of Onset Multiple Sclerosis Mother Cancer Father unknown - stomach Cancer Sister appendix and possible throat cancer Hypertension Maternal Grandmother other (ulcers) Maternal Grandmother Heart Maternal Grandfather Diabetes Maternal Grandfather Cancer Sister uteran Multiple Sclerosis Maternal Aunt I spent a total of 90 minutes on the date of the service which included preparing to see the patient, [id number] patient care, completing clinical documentation, obtaining and/or reviewing separately obtained history, performing a medically appropriate examination, counseling and educating the patient/family/caregiver, ordering medications, tests, or procedures, independently interpreting results (not separately reported), communicating results to the patient/family/caregiver, and care coordination (not separately reported). Rich Hill MD, CPE Hematology and Oncology Services Provided at: [place], [place] Scribe Attestation: This note was scribed by Barbara Wren on July 29, 2023 under the direction and supervision of Dr. Rich Hill. I attest that all of the information documented is correct to the best of my knowledge. Provider Attestation: I, Rich Hill MD, attest that all information documented by the above scribe is correct, and was supervised by me and under my direction. CC: SELF No primary care provider on file. No primary provider on file. documented in this encounter [facility] 07-13-2018 History of Past i llness Narrative Problem Noted Date Resolved Date Bacteremia 07/13/2018 07/22/2018 Last Assessment & Plan: Assessment: Blood cx drawn here and at OSH + strep pyogenes Tissue culture from VATS with GPC in pairs Blood clutures from 07/13 - NGTD PLAN: - cont Abx Severe sepsis 07/12/2018 07/22/2018 Last Assessment & Plan: Assessment: OSH chest CT showed moderate size [...] (07/15-*), will likely need 14 day regimen LUIZA (acute kidney injury) 07/12/20182018 Last Assessment & Plan: Assessment: baseline Cr ~1, elevated to 1.5 at OSH- improved PLAN: - continue to monitor UOP and electrolytes Pleural effusion on right 07/12/20182018 Last Assessment & Plan: Assessment: noted on Chest CT done at OSH, loculated, possible empyema, s/p VATS 07/13, 3 chest tubes were placed PLAN: - cont Abx - keep CTs to suction - thoracic surgery following, appreciate recs Acute esophagitis 02/09/2017 02/13/2017 Overview: mild throat pain --continue mouth care protocol --cepacol prn Central line complication 01/31/20172016 Overview: Upon admission, site of femoral catheter suspicions for infection (erythematous, tenderness, and drainage from site) --BCx3- NGTD, vanco x1 --improved, appears resolved Chemotherapy induced nausea and vomiting 017 02/13/2017 Overview: --PRN Ativan, zofran & Compazine (minimal use) Hodgkin's disease 11/18/2016 02/11/2017 documented as of this encounter (statuses as of 08/11/2021) [facility] History of Past illness Narrative* Problem Noted Date Diagnosed Date Resolved Date Bacteremia 07/13/2018 07/22/2018 Last Assessment & Plan: Assessment: Blood cx drawn here and at OSH + strep pyogenes Tissue culture from VATS with GPC in pairs Blood clutures from 07/13 - NGTD PLAN: - cont Abx Severe sepsis 07/12/2018 07/22/2018 Last Assessment & Plan: Assessment: OSH chest CT showed moderate size [...] (07/15-*), will likely need 14 day regimen LUIZA (acute kidney injury) 07/12/2018 Last Assessment & Plan: Assessment: baseline Cr ~1, elevated to 1.5 at OSH- improved PLAN: - continue to monitor UOP and electrolytes Pleural effusion on right 07/12/2018 Last Assessment & Plan: Assessment: noted on Chest CT done at OSH, loculated, possible empyema, s/p VATS 07/13, 3 chest tubes were placed PLAN: - cont Abx - keep CTs to suction - thoracic surgery following, appreciate recs Acute esophagitis 02/09/2017 02/13/2017 Overview: mild throat pain --continue mouth care protocol --cepacol prn Central line complication 01/31/2017 Overview: Upon admission, site of femoral catheter suspicions for infection (erythematous, tenderness, and drainage from site) --BCx3- NGTD, vanco x1 --improved, appears resolved Chemotherapy induced nausea and vomiting 01/28/2017 02/13/2017 Overview: --PRN Ativan, zofran & Compazine (minimal use) Hodgkin's disease 11/18/2016 02/11/2017 documented as of this encounter (statuses as of 07/27/2023) [facility] History of Past illness Narrative* Problem Noted Date Diagnosed Date Resolved Date Bacteremia 07/13/2018 07/22/2018 Last Assessment & Plan: Assessment: Blood cx drawn here and at OSH + strep pyogenes Tissue culture from VATS with GPC in pairs Blood clutures from 07/13 - NGTD PLAN: - cont Abx Severe sepsis 07/12/2018 07/22/2018 Last Assessment & Plan: Assessment: OSH chest CT showed moderate size [...] (07/15-*), will likely need 14 day regimen LUIZA (acute kidney injury) 07/12/2018 Last Assessment & Plan: Assessment: baseline Cr ~1, elevated to 1.5 at OSH- improved PLAN: - continue to monitor UOP and electrolytes Pleural effusion on right 07/12/2018 Last Assessment & Plan: Assessment: noted on Chest CT done at OSH, loculated, possible empyema, s/p VATS 07/13, 3 chest tubes were placed PLAN: - cont Abx - keep CTs to suction - thoracic surgery following, appreciate recs Acute esophagitis 02/09/2017 02/13/2017 Overview: mild throat pain --continue mouth care protocol --cepacol prn Central line complication 01/31/2017 Overview: Upon admission, site of femoral catheter suspicions for infection (erythematous, tenderness, and drainage from site) --BCx3- NGTD, vanco x1 --improved, appears resolved Chemotherapy induced nausea and vomiting 01/28/2017 02/13/2017 Overview: --PRN Ativan, zofran & Compazine (minimal use) Hodgkin's disease 11/18/2016 02/11/2017 documented as of this encounter (statuses as of 08/01/2023) [facility] History of Past illness Narrative* Problem Noted Date Diagnosed Date Resolved Date Bacteremia 07/13/2018 07/22/2018 Last Assessment & Plan: Assessment: Blood cx drawn here and at OSH + strep pyogenes Tissue culture from VATS with GPC in pairs Blood clutures from 07/13 - NGTD PLAN: - cont Abx Severe sepsis 07/12/2018 07/22/2018 Last Assessment & Plan: Assessment: OSH chest CT showed moderate size [...] (07/15-*), will likely need 14 day regimen LUIZA (acute kidney injury) 07/12/2018 Last Assessment & Plan: Assessment: baseline Cr ~1, elevated to 1.5 at OSH- improved PLAN: - continue to monitor UOP and electrolytes Pleural effusion on right 07/12/2018 Last Assessment & Plan: Assessment: noted on Chest CT done at OSH, loculated, possible empyema, s/p VATS 07/13, 3 chest tubes were placed PLAN: - cont Abx - keep CTs to suction - thoracic surgery following, appreciate recs Acute esophagitis 02/09/2017 02/13/2017 Overview: mild throat pain --continue mouth care protocol --cepacol prn Central line complication 01/31/2017 Overview: Upon admission, site of femoral catheter suspicions for infection (erythematous, tenderness, and drainage from site) --BCx3- NGTD, vanco x1 --improved, appears resolved Chemotherapy induced nausea and vomiting 01/28/2017 02/13/2017 Overview: --PRN Ativan, zofran & Compazine (minimal use) Hodgkin's disease 11/18/2016 02/11/2017 documented as of this encounter (statuses as of 08/12/2023) [facility] History of Past illness Narrative* Problem Noted Date Diagnosed Date Resolved Date Bacteremia 07/13/2018 07/22/2018 Last Assessment & Plan: Assessment: Blood cx drawn here and at OSH + strep pyogenes Tissue culture from VATS with GPC in pairs Blood clutures from 07/13 - NGTD PLAN: - cont Abx Severe sepsis 07/12/2018 07/22/2018 Last Assessment & Plan: Assessment: OSH chest CT showed moderate size [...] (07/15-*), will likely need 14 day regimen LUIZA (acute kidney injury) 07/12/2018 Last Assessment & Plan: Assessment: baseline Cr ~1, elevated to 1.5 at OSH- improved PLAN: - continue to monitor UOP and electrolytes Pleural effusion on right 07/12/2018 Last Assessment & Plan: Assessment: noted on Chest CT done at OSH, loculated, possible empyema, s/p VATS 07/13, 3 chest tubes were placed PLAN: - cont Abx - keep CTs to suction - thoracic surgery following, appreciate recs Acute esophagitis 02/09/2017 02/13/2017 Overview: mild throat pain --continue mouth care protocol --cepacol prn Central line complication 01/31/2017 Overview: Upon admission, site of femoral catheter suspicions for infection (erythematous, tenderness, and drainage from site) --BCx3- NGTD, vanco x1 --improved, appears resolved Chemotherapy induced nausea and vomiting 01/28/2017 02/13/2017 Overview: --PRN Ativan, zofran & Compazine (minimal use) Hodgkin's disease 11/18/2016 02/11/2017 documented as of this encounter (statuses as of 08/12/2023) [facility] History of Past illness Narrative* Problem Noted Date Diagnosed Date Resolved Date Bacteremia 07/13/2018 07/22/2018 Last Assessment & Plan: Assessment: Blood cx drawn here and at OSH + strep pyogenes Tissue culture from VATS with GPC in pairs Blood clutures from 07/13 - NGTD PLAN: - cont Abx Severe sepsis 07/12/2018 07/22/2018 Last Assessment & Plan: Assessment: OSH chest CT showed moderate size [...] (07/15-*), will likely need 14 day regimen LUIZA (acute kidney injury) 07/12/2018 Last Assessment & Plan: Assessment: baseline Cr ~1, elevated to 1.5 at OSH- improved PLAN: - continue to monitor UOP and electrolytes Pleural effusion on right 07/12/2018 Last Assessment & Plan: Assessment: noted on Chest CT done at OSH, loculated, possible empyema, s/p VATS 07/13, 3 chest tubes were placed PLAN: - cont Abx - keep CTs to suction - thoracic surgery following, appreciate recs Acute esophagitis 02/09/2017 02/13/2017 Overview: mild throat pain --continue mouth care protocol --cepacol prn Central line complication 01/31/2017 Overview: Upon admission, site of femoral catheter suspicions for infection (erythematous, tenderness, and drainage from site) --BCx3- NGTD, vanco x1 --improved, appears resolved Chemotherapy induced nausea and vomiting 01/28/2017 02/13/2017 Overview: --PRN Ativan, zofran & Compazine (minimal use) Hodgkin's disease 11/18/2016 02/11/2017 documented as of this encounter (statuses as of 08/13/2023) [facility] History of Past illness Narrative* Problem Noted Date Diagnosed Date Resolved Date Bacteremia 07/13/2018 07/22/2018 Last Assessment & Plan: Assessment: Blood cx drawn here and at OSH + strep pyogenes Tissue culture from VATS with GPC in pairs Blood clutures from 07/13 - NGTD PLAN: - cont Abx Severe sepsis 07/12/2018 07/22/2018 Last Assessment & Plan: Assessment: OSH chest CT showed moderate size [...] (07/15-*), will likely need 14 day regimen LUIZA (acute kidney injury) 07/12/2018 Last Assessment & Plan: Assessment: baseline Cr ~1, elevated to 1.5 at OSH- improved PLAN: - continue to monitor UOP and electrolytes Pleural effusion on right 07/12/2018 Last Assessment & Plan: Assessment: noted on Chest CT done at OSH, loculated, possible empyema, s/p VATS 07/13, 3 chest tubes were placed PLAN: - cont Abx - keep CTs to suction - thoracic surgery following, appreciate recs Acute esophagitis 02/09/2017 02/13/2017 Overview: mild throat pain --continue mouth care protocol --cepacol prn Central line complication 01/31/2017 Overview: Upon admission, site of femoral catheter suspicions for infection (erythematous, tenderness, and drainage from site) --BCx3- NGTD, vanco x1 --improved, appears resolved Chemotherapy induced nausea and vomiting 01/28/2017 02/13/2017 Overview: --PRN Ativan, zofran & Compazine (minimal use) Hodgkin's disease 11/18/2016 02/11/2017 documented as of this encounter (statuses as of 08/18/2023) [facility] History of Past illness Narrative* Problem Noted Date Diagnosed Date Resolved Date Bacteremia 07/13/2018 07/22/2018 Last Assessment & Plan: Assessment: Blood cx drawn here and at OSH + strep pyogenes Tissue culture from VATS with GPC in pairs Blood clutures from 07/13 - NGTD PLAN: - cont Abx Severe sepsis 07/12/2018 07/22/2018 Last Assessment & Plan: Assessment: OSH chest CT showed moderate size [...] (07/15-*), will likely need 14 day regimen LUIZA (acute kidney injury) 07/12/2018 Last Assessment & Plan: Assessment: baseline Cr ~1, elevated to 1.5 at OSH- improved PLAN: - continue to monitor UOP and electrolytes Pleural effusion on right 07/12/2018 Last Assessment & Plan: Assessment: noted on Chest CT done at OSH, loculated, possible empyema, s/p VATS 07/13, 3 chest tubes were placed PLAN: - cont Abx - keep CTs to suction - thoracic surgery following, appreciate recs Acute esophagitis 02/09/2017 02/13/2017 Overview: mild throat pain --continue mouth care protocol --cepacol prn Central line complication 01/31/2017 Overview: Upon admission, site of femoral catheter suspicions for infection (erythematous, tenderness, and drainage from site) --BCx3- NGTD, vanco x1 --improved, appears resolved Chemotherapy induced nausea and vomiting 01/28/2017 02/13/2017 Overview: --PRN Ativan, zofran & Compazine (minimal use) Hodgkin's disease 11/18/2016 02/11/2017 documented as of this encounter (statuses as of 09/25/2023) [facility] History of Past illness Narrative* Problem Noted Date Diagnosed Date Resolved Date Bacteremia 07/13/2018 07/22/2018 Last Assessment & Plan: Assessment: Blood cx drawn here and at OSH + strep pyogenes Tissue culture from VATS with GPC in pairs Blood clutures from 07/13 - NGTD PLAN: - cont Abx Severe sepsis 07/12/2018 07/22/2018 Last Assessment & Plan: Assessment: OSH chest CT showed moderate size right effusion (loculated) with mucus plugging and atelectasis, still a c/f atypical PNA given stem cell transplant status (not on IS), blood cx + strep pyogenes (possible empyema?) S/p 3L NS at OSH, received 1L here at [facility], s/p Levaquin at [facility]SH [facility] strep Source control: Multiloculated right pleural effusion s/p VATS 07/13 PLAN: - d/c clinda - start Pen G and flagyl (07/15-*), will likely need 14 day regimen LUIZA (acute kidney injury) 07/12/2018 Last Assessment & Plan: Assessment: baseline Cr ~1, elevated to 1.5 at OSH- improved PLAN: - continue to monitor UOP and electrolytes Pleural effusion on right 07/12/2018 Last Assessment & Plan: Assessment: noted on Chest CT done at OSH, loculated, possible empyema, s/p VATS 07/13, 3 chest tubes were placed PLAN: - cont Abx - keep CTs to suction - thoracic surgery following, appreciate recs Acute esophagitis 02/09/2017 02/13/2017 Overview: mild throat pain --continue mouth care protocol --cepacol prn Central line complication 01/31/2017 Overview: Upon admission, site of femoral catheter suspicions for infection (erythematous, tenderness, and drainage from site) --BCx3- NGTD, vanco x1 --improved, appears resolved Chemotherapy induced nausea and vomiting 01/28/2017 02/13/2017 Overview: --PRN Ativan, zofran & Compazine (minimal use) Hodgkin's disease 11/18/2016 02/11/2017 documented as of this encounter (statuses as of 09/29/2023) [facility] History of Past illness Narrative* Problem Noted Date Diagnosed Date Resolved Date Bacteremia 07/13/2018 07/22/2018 Last Assessment & Plan: Assessment: Blood cx drawn here and at OSH + strep pyogenes Tissue culture from VATS with GPC in pairs Blood clutures from 07/13 - NGTD PLAN: - cont Abx Severe sepsis 07/12/2018 07/22/2018 Last Assessment & Plan: Assessment: OSH chest CT showed moderate size [...] (07/15-*), will likely need 14 day regimen LUIZA (acute kidney injury) 07/12/2018 Last Assessment & Plan: Assessment: baseline Cr ~1, elevated to 1.5 at OSH- improved PLAN: - continue to monitor UOP and electrolytes Pleural effusion on right 07/12/2018 Last Assessment & Plan: Assessment: noted on Chest CT done at OSH, loculated, possible empyema, s/p VATS 07/13, 3 chest tubes were placed PLAN: - cont Abx - keep CTs to suction - thoracic surgery following, appreciate recs Acute esophagitis 02/09/2017 02/13/2017 Overview: mild throat pain --continue mouth care protocol --cepacol prn Central line complication 01/31/2017 Overview: Upon admission, site of femoral catheter suspicions for infection (erythematous, tenderness, and drainage from site) --BCx3- NGTD, vanco x1 --improved, appears resolved Chemotherapy induced nausea and vomiting 01/28/2017 02/13/2017 Overview: --PRN Ativan, zofran & Compazine (minimal use) Hodgkin's disease 11/18/2016 02/11/2017 documented as of this encounter (statuses as of 09/30/2023) 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* Diagnosis Neoplasm related pain Neoplasm related pain (acute) (chronic) Post-traumatic osteoarthritis of multiple joints Drug-induced constipation Other constipation Insomnia due to medical condition Insomnia due to medical condition classified elsewhere documented in this encounter [facility]* Diagnosis Palliative care by specialist- Primary 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) Neoplasm related pain Neoplasm related pain (acute) (chronic) Drug-induced constipation Other constipation Opioid contract exists Encounters for other specified administrative purpose Post-traumatic osteoarthritis of multiple joints Insomnia due to medical condition Insomnia due to medical condition classified elsewhere Anxiety Anxiety state, unspecified Auditory hallucinations Hallucinations documented in this encounter 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 Tonsillitis Acute tonsillitis 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[facility]) Bone marrow replaced by transplant Abnormal finding on imaging Other nonspecific (abnormal) findings on radiological and other examinations of body structure documented in this encounter [facility] note* Diagnosis Anxiety- Primary Anxiety state, unspecified Auditory hallucinations Hallucinations [facility]* Diagnosis NO SHOW- Primary documented in this encounter [facility] note* Diagnosis 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* Diagnosis Encounter for palliative care- Primary documented in this encounter 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) Bone marrow replaced by transplant Abnormal finding on imaging Other nonspecific (abnormal) findings on radiological and other examinations of body structure documented in this encounter [facility] note* Diagnosis Palliative care by specialist- Primary Neoplasm related pain Neoplasm related pain (acute) (chronic) Opioid contract exists Encounters for other specified administrative purpose Osteoarthritis of spine, unspecified spinal osteoarthritis complication status, unspecified spinal region 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) Drug-induced constipation Other constipation documented in this encounter [facility] note* Diagnosis Neoplasm related pain Neoplasm related pain (acute) (chronic) Osteoarthritis of spine, unspecified spinal osteoarthritis complication status, unspecified spinal region [facility]* Diagnosis Right-sided chest wall pain- Primary Painful respiration Malnutrition of moderate degree (HCC) Malnutrition of moderate degree LUIZA (acute kidney injury) (HCC) Acute kidney failure, unspecified 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 Chronic systolic heart failure (HCC) Chronic systolic heart failure Pleural effusion on right Unspecified pleural effusion Severe sepsis (HCC) Pneumonia of right lower lobe due to infectious organism Empyema (HCC) Empyema without mention of fistula Nicotine use disorder Tobacco use disorder History of Hodgkin's lymphoma Personal history of Hodgkin's disease Severe sepsis (HCC) HFrEF (heart failure with reduced ejection fraction) (HCC) Heart failure, unspecified 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 LUIZA (acute kidney injury) (HCC) Acute kidney failure, unspecified Pleural effusion on right Unspecified pleural effusion Nicotine use disorder, F17.2 Tobacco use disorder Bacteremia Malnutrition of moderate degree (HCC) Malnutrition of moderate degree Empyema (HCC) Empyema without mention of fistula 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 [facility] Diagnosis Right-sided chest wall pain- Primary Painful respiration Malnutrition of moderate degree (HCC) Malnutrition of moderate degree LUIZA (acute kidney injury) (HCC) Acute kidney failure, unspecified 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 Chronic systolic heart failure (HCC) Chronic systolic heart failure Pleural effusion on right Unspecified pleural effusion Severe sepsis (HCC) Pneumonia of right lower lobe due to infectious organism Empyema (HCC) Empyema without mention of fistula Nicotine use disorder Tobacco use disorder History of Hodgkin's lymphoma Personal history of Hodgkin's disease Severe sepsis (HCC) HFrEF (heart failure with reduced ejection fraction) (HCC) Heart failure, unspecified 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 LUIZA (acute kidney injury) (HCC) Acute kidney failure, unspecified Pleural effusion on right Unspecified pleural effusion Nicotine use disorder, F17.2 Tobacco use disorder Bacteremia Malnutrition of moderate degree (HCC) Malnutrition of moderate degree Empyema (HCC) Empyema without mention of fistula 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) Bone marrow replaced by transplant Abnormal finding on imaging Other nonspecific (abnormal) findings on radiological and other examinations of body structure documented in this encounter [facility] note* Diagnosis Right-sided chest wall pain- Primary Painful respiration Malnutrition of moderate degree (HCC) Malnutrition of moderate degree LUIZA (acute kidney injury) (HCC) Acute kidney failure, unspecified 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 Chronic systolic heart failure (HCC) Chronic systolic heart failure Pleural effusion on right Unspecified pleural effusion Severe sepsis (HCC) Pneumonia of right lower lobe due to infectious organism Empyema (HCC) Empyema without mention of fistula Nicotine use disorder Tobacco use disorder History of Hodgkin's lymphoma Personal history of Hodgkin's disease Severe sepsis (HCC) HFrEF (heart failure with reduced ejection fraction) (HCC) Heart failure, unspecified 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 LUIAZ (acute kidney injury) (HCC) Acute kidney failure, unspecified Pleural effusion on right Unspecified pleural effusion Nicotine use disorder, F17.2 Tobacco use disorder Bacteremia Malnutrition of moderate degree (HCC) Malnutrition of moderate degree Empyema (HCC) Empyema without mention of fistula Cancer associated pain Neoplasm related pain (acute) (chronic) s/p 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HCC) Bone marrow replaced by transplant 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) [facility] Diagnosis Chronic pain syndrome- Primary Chronic left hip pain Muscle spasm Spasm of muscle Attention deficit hyperactivity disorder (ADHD), unspecified ADHD type [facility] Diagnosis Chronic pain syndrome Chronic left hip pain documented [facility]* Diagnosis Drug-induced erectile dysfunction- Primary documented in this encounter [facility]* Diagnosis Chronic left hip pain- Primary Chronic pain syndrome Muscle spasm Spasm of muscle documented [facility]* Diagnosis Chronic pain syndrome Chronic left hip pain documented [facility] this encounter [facility]* Diagnosis 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)- Primary Abnormal findings on imaging test Other nonspecific (abnormal) findings on radiological and other examinations of body structure Adenotonsillar hypertrophy Hypertrophy of tonsil with adenoids Tonsillitis Acute tonsillitis 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) Abnormal findings on imaging test Other nonspecific (abnormal) findings on radiological and other examinations of body structure Adenotonsillar hypertrophy Hypertrophy of tonsil with adenoids Tonsillitis Acute tonsillitis 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) Abnormal findings on imaging test Other nonspecific (abnormal) findings on radiological and other examinations of body structure Adenotonsillar hypertrophy Hypertrophy of tonsil with adenoids Tonsillitis Acute tonsillitis documented [facility]* Diagnosis 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) Abnormal findings on imaging test Other nonspecific (abnormal) findings on radiological and other examinations of body structure Adenotonsillar hypertrophy Hypertrophy of tonsil with adenoids Tonsillitis Acute tonsillitis Pre-op testing- Primary Unspecified pre-operative examination 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) Abnormal findings on imaging test Other nonspecific (abnormal) findings on radiological and other examinations of body structure Adenotonsillar hypertrophy Hypertrophy of tonsil with adenoids Tonsillitis Acute tonsillitis [facility] SystemEvaluation note* Diagnosis 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 Unspecified chorioretinitis Other specified retinal disorders Other specified retinal disorders 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 Unspecified chorioretinitis [facility] Diagnosis 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 Unspecified chorioretinitis [facility] Diagnosis Other specified retinal disorders [facility] Diagnosis Chronic midline low back pain with sciatica, sciatica laterality unspecified- Primary Right rotator cuff tear arthropathy documented in this encounter [facility] System[facility]* Diagnosis 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)- Primary 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) [facility] Diagnosis 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) [facility] Diagnosis 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)- Primary 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) [facility] Diagnosis 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)- Primary 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) documented in this encounter [facility] SystemEvaluation note* Diagnosis 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)- Primary Abnormal findings on imaging test Other nonspecific (abnormal) findings on radiological and other examinations of body structure [facility] Diagnosis 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)- Primary Abnormal findings on imaging test Other nonspecific (abnormal) findings on radiological and other examinations of body structure 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) [facility] Diagnosis 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)- Primary Abnormal findings on imaging test Other nonspecific (abnormal) findings on radiological and other examinations of body structure 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) Preop examination- Primary Unspecified pre-operative examination [facility] Diagnosis Preop examination- Primary Unspecified pre-operative examination Preop examination Unspecified pre-operative examination [facility] Diagnosis 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)- Primary [facility]* Diagnosis 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 * Erectile Dysfunction (Surinamese) documented [facility] System[facility]ructionsNot on file documented in this encounterProMedi[facility] SystemInstructionsNot on file documented in this encounter[facility] SystemInstructionsNot on file documented in this [facility] SystemInstructionsNot on file documented in this [facility]Pro[facility] SystemInstructionsNot on file documented in this [facility]Pro[facility] SystemInstructionsNot on file documented in this [facility]Pro[facility] SystemInstructionsNot on file documented in this encounterPro[facility] SystemInstructionsNot on file documented in this encounterPro[facility] Health SystemInstructionsNot on file documented in this encounterProMedi[facility] Health SystemInstructionsNot on file documented in this encounterPro[facility] SystemInstructionsNot on file documented in this encounterPro[facility] HospitalServiceTitan SystemReason for referral (narrative)* Diagnostic Procedure Only (Routine) - Open Specialty Diagnoses / Procedures Referred By Contact Referred To Contact MOLECULAR & FUNCTIONAL IMAGING Diagnoses 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) Procedures NM PET/CT WHOLE BODY SUBSEQUENT PET IMAGING FOR CT ATTENUATION WHOLE BODY Rich Hill MD [address] [place] [address] [place] [address] Molecular & Functional Imaging [address] [place] [address] Referral ID Status Reason Start Date Expiration Date V isits Requested Visits Authorized [id number] Open Auto-Generate d Referral 07/29/2023 08/27/2024 1 1 [facility] for referral (narrative)* Diagnostic Procedure Only (Routine) - Open Specialty Diagnoses / Procedures Referred By Contact Referred To Contact MOLECULAR & FUNCTIONAL IMAGING Diagnoses 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) Abnormal finding on imaging Procedures NM PET/CT SKULL-THIGH SUBSEQUENT PET IMAGING CT ATTENUATION SKULL BASE MID-THIGH Rich Hill MD [address] [place] [address] Molecular & Functional Imaging [address] [place] [address] Referral ID Status Reason Start Date Expiration Date V isits Requested Visits Authorized [id number] Open Auto-Generate d Referral 12/18/2023 01/16/2025 1 1 [facility] for referral (narrative)* Diagnostic Procedure Only (Routine) - Closed Specialty Diagnoses / Procedures Referred By Contact Referred To Contact MOLECULAR & FUNCTIONAL IMAGING Diagnoses 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) Abnormal finding on imaging Procedures NM PET/CT SKULL-THIGH SUBSEQUENT PET IMAGING CT ATTENUATION SKULL BASE MID-THIGH Rich Hill MD [address] [place] [address] Molecular & Functional Imaging [address] [place] [address] Referral ID Status Reason Start Date Expiration Date V isits Requested Visits Authorized [id number] Closed Auto-Generate d Referral 01/04/2024 02/02/2024 1 1 [facility] for referral (narrative)* Diagnostic Procedure Only (Routine) - Closed Specialty Diagnoses / Procedures Referred By Contact Referred To Contact MOLECULAR & FUNCTIONAL IMAGING Diagnoses 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) Procedures NM PET/CT WHOLE BODY SUBSEQUENT PET IMAGING FOR CT ATTENUATION WHOLE BODY Rich Hill MD [address] [place] [address] [place] [address] Molecular & Functional Imaging [address] [place], [place] [id number] Referral ID Status Reason Start Date Expiration Date V isits Requested Visits Authorized [id number] Closed Auto-Generate d Referral 08/12/2023 06/14/2024 1 1 [facility] for referral (narrative)* Consultation (Routine) - Pending Review Specialty Diagnoses / Procedures Referred By Contsimba marlow Referred To Contact Behavioral Health Diagnoses Attention deficit hyperactivity disorder (ADHD), unspecified ADHD type Shanthi Lu APRN-HERACLIO [address] [place] [address] [facility] [address] [place] [address] Referral ID Status Reason Start Date Expiration Date Visits Requested Visits Authorized [id number] Pending Review Specialty Services Required 10/19/2023 10/18/2024 1 1 * Medication Prior Authorization - Closed Specialty Diagnoses / Procedures Referred By Geraldine marlow Referred To Contact Diagnoses Chronic pain syndrome Chronic left hip pain Shanthi Lu APRN-HERACLIO [address] [place] [address] Referral ID Status Reason Start Date Expiration Date Visits Re quested Visits Authorized [id number] Closed [address] 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 Advance Directive(s) Advance Directive(s) 08/11/2018 9:03 AM Advance Directive(s) 01/28/2017 8:08 AM Advance Directive(s) 01/14/2017 2:06 PM Advance Directive(s) 11/19/2016 3:00 PM Documents on File Type Date Recorded 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 Advance Directive(s) 11/19/2016 3:00 PM Documents on File Type Date Recorded 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 Advance Directive(s) 11/19/2016 3:00 PM Reason for Referral Specialty Diagnoses / Procedures Referred By Geraldine t Referred To Contact Diagnoses 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 Simran Nelson, SPRIGGER.WAIST FITTER [address] [place] [address] Referral ID Status Reason Start Date Expiration Date V isits Requested Visits Authorized [id number] Pending Review 1 1 Specialty Diagnoses / Procedures Referred By Geraldine marlow Referred To Contact Ent - Otolaryngology Diagnoses Tonsillitis 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 60 MINUTES Rich Hill MD [address] [place] [address] [place] [address] Referral ID Status Reason Start Date Expiration Date Visits Requested Visits Authorized [id number] Authorized PCP Requested Referral 08/17/2023 08/16/2024 1 1 Specialty Diagnoses / Procedures Referred By Geraldine marlow Referred To Contact Diagnoses Chronic pain syndrome Chronic left hip pain Shanthi Lu, SPRIGGER-WAIST FITTER [address] [place] [address] Referral ID Status Reason Start Date Expiration Date Visits Re quested Visits Authorized [id number] Closed 1 1 Specialty Diagnoses / Procedures Referred By Contac t Referred To Contact Diagnoses Pre-op testing Procedures ECG 12 lead Fortunato Grady MD [address] [place] [address] Referral ID Status Reason Start Date Expiration Date V isits Requested Visits Authorized [id number] Pending Review 02/01/2024 01/31/2025 1 1 Additional Source Comments (unrecognized sect ion and content) No Status Records FoundNo Status Records FoundNo Status Records FoundNo Status Records FoundNo Status Records FoundNo Status Records FoundNo Status Records FoundNo Status Records FoundNo Status Records Found INFORMATION SOURCE (unrecogn ized section and content) DATE CREATED AUTHOR 12/18/2018 [facility] DATE CREATED AUTHOR AUTHOR'S ORGANIZ ATION 12/27/2018 [facility] DATE CREATED AUTHOR AUTHOR'S ORGANIZ ATION 05/26/2021 [facility] DATE CREATED AUTHOR AUTHOR'S ORGANIZ ATION 06/12/2022 [place] DATE CREATED AUTHOR AUTHOR'S ORGANIZ ATION 08/15/2023 [facility] DATE CREATED AUTHOR AUTHOR'S ORGANIZ ATION 02/09/2024 [facility] DATE CREATED AUTHOR AUTHOR'S ORGANIZ ATION 09/17/[address] [facility] DATE CREATED AUTHOR AUTHOR'S ORGANIZ ATION 01/11/2025 [facility] DATE CREATED AUTHOR AUTHOR'S ORGANIZ ATION 01/21/2025 [facility] Source Comments (unrecognize d section and content) In the event this informatio n is protected by the Federal Confidentiality of Alcohol and Drug Abuse Patient Records regulations: The Federal rules restrict any use of the information to criminally investigate or prosecute any alcohol or drug abuse patient.[facility] the event this information is protected by the Federal Confidentiality of Alcohol and Drug Abuse Patient Records regulations: The Federal rules restrict any use of the information to criminally investigate or prosecute any alcohol or drug abuse patient.[facility] HospitalIn the event this information is protected by the Federal Confidentiality of Alcohol and Drug Abuse Patient Records regulations: The Federal rules restrict any use of the information to criminally investigate or prosecute any alcohol or drug abuse patient.[facility] HospitalIn the event this information is protected by the Federal Confidentiality of Alcohol and Drug Abuse Patient Records regulations: The Federal rules restrict any use of the information to criminally investigate or prosecute any alcohol or drug abuse patient.[facility] HospitalIn the event this information is protected by the Federal Confidentiality of Alcohol and Drug Abuse Patient Records regulations: The Federal rules restrict any use of the information to criminally investigate or prosecute any alcohol or drug abuse patient.[facility] HospitalIn the event this information is protected by the Federal Confidentiality of Alcohol and Drug Abuse Patient Records regulations: The Federal rules restrict any use of the information to criminally investigate or prosecute any alcohol or drug abuse patient.[facility] HospitalIn the event this information is protected by the Federal Confidentiality of Alcohol and Drug Abuse Patient Records regulations: The Federal rules restrict any use of the information to criminally investigate or prosecute any alcohol or drug abuse patient.[facility] HospitalIn the event this information is protected by the Federal Confidentiality of Alcohol and Drug Abuse Patient Records regulations: The Federal rules restrict any use of the information to criminally investigate or prosecute any alcohol or drug abuse patient.[facility] HospitalIn the event this information is protected by the Federal Confidentiality of Alcohol and Drug Abuse Patient Records regulations: The Federal rules restrict any use of the information to criminally investigate or prosecute any alcohol or drug abuse patient.[facility] HospitalIn the event this information is protected by the Federal Confidentiality of Alcohol and Drug Abuse Patient Records regulations: The Federal rules restrict any use of the information to criminally investigate or prosecute any alcohol or drug abuse patient.[facility] HospitalIn the event this information is protected by the Federal Confidentiality of Alcohol and Drug Abuse Patient Records regulations: The Federal rules restrict any use of the information to criminally investigate or prosecute any alcohol or drug abuse patient.[facility] HospitalIn the event this information is protected by the Federal Confidentiality of Alcohol and Drug Abuse Patient Records regulations: The Federal rules restrict any use of the information to criminally investigate or prosecute any alcohol or drug abuse patient.[facility] HospitalIn the event this information is protected by the Federal Confidentiality of Alcohol and Drug Abuse Patient Records regulations: The Federal rules restrict any use of the information to criminally investigate or prosecute any alcohol or drug abuse patient.[facility] HospitalIn the event this information is protected by the Federal Confidentiality of Alcohol and Drug Abuse Patient Records regulations: The Federal rules restrict any use of the information to criminally investigate or prosecute any alcohol or drug abuse patient.[facility] HospitalIn the event this information is protected by the Federal Confidentiality of Alcohol and Drug Abuse Patient Records regulations: The Federal rules restrict any use of the information to criminally investigate or prosecute any alcohol or drug abuse patient.[facility] HospitalIn the event this information is protected by the Federal Confidentiality of Alcohol and Drug Abuse Patient Records regulations: The Federal rules restrict any use of the information to criminally investigate or prosecute any alcohol or drug abuse patient.[facility] HospitalIn the event this information is protected by the Federal Confidentiality of Alcohol and Drug Abuse Patient Records regulations: The Federal rules restrict any use of the information to criminally investigate or prosecute any alcohol or drug abuse patient.[facility] HospitalIn the event this information is protected by the Federal Confidentiality of Alcohol and Drug Abuse Patient Records regulations: The Federal rules restrict any use of the information to criminally investigate or prosecute any alcohol or drug abuse patient.[facility] HospitalIn the event this information is protected by the Federal Confidentiality of Alcohol and Drug Abuse Patient Records regulations: The Federal rules restrict any use of the information to criminally investigate or prosecute any alcohol or drug abuse patient.[facility] HospitalIn the event this information is protected by the Federal Confidentiality of Alcohol and Drug Abuse Patient Records regulations: The Federal rules restrict any use of the information to criminally investigate or prosecute any alcohol or drug abuse patient.[facility] HospitalIn the event this information is protected by the Federal Confidentiality of Alcohol and Drug Abuse Patient Records regulations: The Federal rules restrict any use of the information to criminally investigate or prosecute any alcohol or drug abuse patient.[facility] HospitalIn the event this information is protected by the Federal Confidentiality of Alcohol and Drug Abuse Patient Records regulations: The Federal rules restrict any use of the information to criminally investigate or prosecute any alcohol or drug abuse patient.[facility] HospitalIn the event this information is protected by the Federal Confidentiality of Alcohol and Drug Abuse Patient Records regulations: The Federal rules restrict any use of the information to criminally investigate or prosecute any alcohol or drug abuse patient.[facility] HospitalIn the event this information is protected by the Federal Confidentiality of Alcohol and Drug Abuse Patient Records regulations: The Federal rules restrict any use of the information to criminally investigate or prosecute any alcohol or drug abuse patient.[facility] HospitalIn the event this information is protected by the Federal Confidentiality of Alcohol and Drug Abuse Patient Records regulations: The Federal rules restrict any use of the information to criminally investigate or prosecute any alcohol or drug abuse patient.[facility] HospitalIn the event this information is protected by the Federal Confidentiality of Alcohol and Drug Abuse Patient Records regulations: The Federal rules restrict any use of the information to criminally investigate or prosecute any alcohol or drug abuse patient.[facility] Care Teams (unrecognized sec tion and content) Naturopathic Oncology Provider Relationship Specialty Start Date End Date Dilcia Ramirez [address] [place] [address] [address] [place] [address] PCP - General Family Practice 04/22/16 12/19/18 [place] [address] [place] [address] Physician Blood and Marrow Transplant 11/17/16 Lupis Bass (Bogdan) [address] [place] [address] Email Marketing Executive Blood and Marrow Transplant 01/07/17 Hannah Henson MD [address] [place] [address] Primary Staff Physician Cardiology 08/31/18 Hannah Henson MD [address] [place] [address] Primary Staff Physician Cardiology 08/31/18 Naturopathic Oncology Provider Relationship Specialty Start [place] [address] [place] [address] Physician Blood and Marrow Transplant 11/17/16 Lupis Bass () [address] [place] [address] Email Marketing Executive Blood and Marrow Transplant 01/07/17 Hannah Henson MD [address] [place] [address] Primary Staff Physician Cardiology 08/31/18 Naturopathic Oncology Provider Relationship Specialty Start [place] [address] [place] [address] Physician Blood and Marrow Transplant 11/17/16 Lupis Bass () [address] [place] [address] Email Marketing Executive Blood and Marrow Transplant 01/07/17 Hannah Henson MD [address] [place] [address] Primary Staff Physician Cardiology 08/31/18 Naturopathic Oncology Provider Relationship Specialty Start [place] [address] [place] [address] Physician Blood and Marrow Transplant 11/17/16 Lupis Bass () [address] [place] [address] Email Marketing Executive Blood and Marrow Transplant 01/07/17 Hannah Henson MD [address] [place] [address] Primary Staff Physician Cardiology 08/31/18 Naturopathic Oncology Provider Relationship Specialty Start [place] [address] [place] [address] Physician Blood and Marrow Transplant 11/17/16 Lupis Bass () [address] [place] [address] Email Marketing Executive Blood and Marrow Transplant 01/07/17 Hannah Henson MD [address] [place] [address] Primary Staff Physician Cardiology 08/31/18 Naturopathic Oncology Provider Relationship Specialty Start [place] [address] [place] [address] Physician Blood and Marrow Transplant 11/17/16 Lupis Bass () [address] [place] [address] Email Marketing Executive Blood and Marrow Transplant 01/07/17 Hannah Henson MD [address] [place] [address] Primary Staff Physician Cardiology 08/31/18 Naturopathic Oncology Provider Relationship Specialty Start [place] [address] [place] [address] Physician Blood and Marrow Transplant 11/17/16 Lupis Bass () [address] [place] [address] Email Marketing Executive Blood and Marrow Transplant 01/07/17 Hannah Henson MD [address] [place] [address] Primary Staff Physician Cardiology 08/31/18 Naturopathic Oncology Provider Relationship Specialty Start [place] [address] [place] [address] Physician Blood and Marrow Transplant 11/17/16 Lupis Bass () [address] [place], [place] [id number] Email Marketing Executive Blood and Marrow Transplant 01/07/17 Hannah Henson MD [address] [place] [address] Primary Staff Physician Cardiology 08/31/18 Simran Nelson APRN.WAIST FITTER [address] [place] [address] [place] [address] Hospice & Palliative Medicine 08/19/23 Marialuisa Portillo, RN Specialty Machine Tracer Hospice & Palliative Medicine 08/19/23 Naturopathic Oncology Provider Relationship Specialty Start Date [place] [address] [place] [address] Physician Blood and Marrow Transplant 11/17/16 Lupis Bass () [address] [place] [address] Email Marketing Executive Blood and Marrow Transplant 01/07/17 Hannah Henson MD [address] [place], [place] [id number] Primary Staff Physician Cardiology 08/31/18 Simran Nelson APRN.WAIST FITTER [address] [place] [address] [place] [phone] Hospice & Palliative Medicine 08/19/23 Marialuisa Portillo, SANDRA Specialty Machine Tracer Hospice & Palliative Medicine 08/19/23 Naturopathic Oncology Provider Relationship Specialty Start Date [place] [address] [place] [address] Physician Blood and Marrow Transplant 11/17/16 Lupis Bass () [address] [place] [address] Email Marketing Executive Blood and Marrow Transplant 01/07/17 Hannah Henson MD [address] [facility] [place] [phone] Primary Staff Physician Cardiology 08/31/18 Simran Nelson APRN.WAIST FITTER [address] [place] [address] [place] [address] Hospice & Palliative Medicine 08/19/23 Marialuisa Portillo RN Specialty Machine Tracer Hospice & Palliative Medicine 08/19/23 Naturopathic Oncology Provider Relationship Specialty Start Date [place] [address] [place] [address] Physician Blood and Marrow Transplant 11/17/16 Lupis Bass () [address] [place] [address] Email Marketing Executive Blood and Marrow Transplant 01/07/17 Hannah Henson MD [address] [facility] [place] [address] Primary Staff Physician Cardiology 08/31/18 Simran Nelson APRN.WAIST FITTER [address] [place] [address] [place] [phone] Hospice & Palliative Medicine 08/19/23 Marialuisa Portillo, RN Specialty Machine Tracer Hospice & Palliative Medicine 08/19/23 Naturopathic Oncology Provider Relationship Specialty Start Date End [place] [address] [place] [address] Physician Blood and Marrow Transplant 11/17/16 Lupis Bass (Sw) [address] [place], [place] [phone] Email Marketing Executive Blood and Marrow Transplant 01/07/17 Hannah Henson MD [address] [place], [place] [phone] Primary Staff Physician Cardiology 08/31/18 Simran Nelson APRN.WAIST FITTER [address] [place] [address] [place] [address] Hospice & Palliative Medicine 08/19/23 Marialuisa Portillo RN Specialty Machine Tracer Hospice & Palliative Medicine 08/19/23 Naturopathic Oncology Provider Relationship Specialty Start [place] [address] [place] [address] Physician Blood and Marrow Transplant 11/17/16 Lupis Bass (Sw) [address] [place], [place] [phone] Email Marketing Executive Blood and Marrow Transplant 01/07/17 Hannah Henson MD [address] [place], [place] [phone] Primary Staff Physician Cardiology 08/31/18 Simran Nelson APRN.WAIST FITTER [address] [place] [address] [place] [address] Hospice & Palliative Medicine 08/19/23 Marialuisa Portillo, RN Specialty Machine Tracer Hospice & Palliative Medicine 08/19/23 Naturopathic Oncology Provider Relationship Specialty Start Date [place] [address] [place] [address] Physician Blood and Marrow Transplant 11/17/16 Lupis Bass (Bogdan) [address] [place], [place] [phone] Email Marketing Executive Blood and Marrow Transplant 01/07/17 Hannah Henson MD [address] [place], [place] [address] Primary Staff Physician Cardiology 08/31/18 Simran Nelson, SPRIGGER.WAIST FITTER [address] [place] [address] [place] [address] Hospice & Palliative Medicine 08/19/23 Marialuisa Portillo, RN Specialty Machine Tracer Hospice & Palliative Medicine 08/19/23 Naturopathic Oncology Provider Relationship Specialty Start Date [place] [address] [place] [address] Physician Blood and Marrow Transplant 11/17/16 Lupis Bass (Bogdan) [address] [place] [place], [place] [phone] Email Marketing Executive Blood and Marrow Transplant 01/07/17 Hannah Henson MD [address] [place] [place], [place] [phone] Primary Staff Physician Cardiology 08/31/18 Simran Nelson SPRIGGER.WAIST FITTER [address] [place] [address] [place] [address] Hospice & Palliative Medicine 08/19/23 Marialuisa Portillo, RN Specialty Machine Tracer Hospice & Palliative Medicine 08/19/23 Naturopathic Oncology Provider Relationship Specialty Start [place] [address] [place] [address] Physician Blood and Marrow Transplant 11/17/16 Lupis Bass (Bogdan) [address] [place], [place] [phone] Email Marketing Executive Blood and Marrow Transplant 01/07/17 Hannah Henson MD [address] [facility] [place], [place] [phone] Primary Staff Physician Cardiology 08/31/18 Simran Nelson, SPRIGGER.WAIST FITTER [address] [place] [address] [place] [address] Hospice & Palliative Medicine 08/19/23 Marialuisa Portillo, RN Specialty Machine Tracer Hospice & Palliative Medicine 08/19/23 Naturopathic Oncology Provider Relationship Specialty Start [place] [address] [place] [address] Physician Blood and Marrow Transplant 11/17/16 Lupis Bass (Bogdan) [address] [place] [place], [place] [phone] Email Marketing Executive Blood and Marrow Transplant 01/07/17 Hannah Henson MD [address] [place] [place], [place] [phone] Primary Staff Physician Cardiology 08/31/18 Simran Nelson, SPRIGGER.WAIST FITTER [address] [place] [address] [place] [address] Hospice & Palliative Medicine 08/19/23 Marialuisa Portillo, RN Specialty Machine Tracer Hospice & Palliative Medicine 08/19/23 Naturopathic Oncology Provider Relationship Specialty Start [place] [address] [place] [address] Physician Blood and Marrow Transplant 11/17/16 Lupis Bass (Bogdan) [address] [place], [place] [phone] Email Marketing Executive Blood and Marrow Transplant 01/07/17 Hannah Henson MD [address] [facility] [place], [place] [phone] Primary Staff Physician Cardiology 08/31/18 Simran Nelson, SPRIGGER.WAIST FITTER [address] [place] [address] [place] [phone] Hospice & Palliative Medicine 08/19/23 Marialuisa Portillo, RN Specialty Machine Tracer Hospice & Palliative Medicine 08/19/23 Naturopathic Oncology Provider Relationship Specialty Start [place] [address] [place] [address] Physician Blood and Marrow Transplant 11/17/16 Lupis Bass (Bogdan) [address] [place], [place] [phone] Email Marketing Executive Blood and Marrow Transplant 01/07/17 Hannah Henson MD [address] [place], [place] [phone] Primary Staff Physician Cardiology 08/31/18 Simran Nelson APRN.WAIST FITTER [address] [place] [address] [place] [phone] Hospice & Palliative Medicine 08/19/23 Marialuisa Portillo, RN Specialty Machine Tracer Hospice & Palliative Medicine 08/19/23 Naturopathic Oncology Provider Relationship Specialty Start [place] [address] [place] [address] Physician Blood and Marrow Transplant 11/17/16 Lupis Bass () [address] [place], [place] [phone] Email Marketing Executive Blood and Marrow Transplant 01/07/17 Hannah Henson MD [address] [place], [place] [phone] Primary Staff Physician Cardiology 08/31/18 Naturopathic Oncology Provider Relationship Specialty Start Date End Date Shanthi Lu APRN-WAIST FITTER [address] [place] [address] PCP - General Family Medicine 10/19/23 Naturopathic Oncology Provider Relationship Specialty Start Date End Date Shanthi Lu APRN-WAIST FITTER [address] [place] [address] PCP - General Family Medicine 10/19/23 Naturopathic Oncology Provider Relationship Specialty Start Date End Date Shanthi Lu APRN-WAIST FITTER [address] [place] [address] PCP - General Family Medicine 10/19/23 Naturopathic Oncology Provider Relationship Specialty Start Date End Date Shanthi Lu, [facility] [address] [place] [address] PCP - General Family Medicine 10/19/23 Naturopathic Oncology Provider Relationship Specialty Start Date End Date Shanthi Lu [facility] [address] [place] [address] PCP - General Family Medicine 10/19/23 Naturopathic Oncology Provider Relationship Specialty Start Date End Date Shanthi Lu [facility] [address] [place] [address] PCP - General Family Medicine 10/19/23 Naturopathic Oncology Provider Relationship Specialty Start Date End Date Shanthi Lu [facility] [address] [place] [address] PCP - General Family Medicine 10/19/23 Naturopathic Oncology Provider Relationship Specialty Start Date End Date Shanthi Lu [facility] [address] [place] [address] PCP - General Family Medicine 10/19/23 Naturopathic Oncology Provider Relationship Specialty Start Date End Date Shanthi Lu [facility] [address] [place] [address] PCP - General Family Medicine 10/19/23 Naturopathic Oncology Provider Relationship Specialty Start Date End Date Shanthi Lu [facility] [address] [place] [address] PCP - General Family Medicine 10/19/23 Naturopathic Oncology Provider Relationship Specialty Start Date End Date Shanthi Lu APRN-WAIST FITTER [address] [place] [address] PCP - General Family Medicine 10/19/23 Naturopathic Oncology Provider Relationship Specialty Start Date End Date Shanthi Lu APRN-WAIST FITTER [address] [place] [address] PCP - General Family Medicine 10/19/23 Naturopathic Oncology Provider Relationship Specialty Start [place] [address] [place] [address] Physician Blood and Marrow Transplant 11/17/16 Lupis Bass () [address] [place] [address] Email Marketing Executive Blood and Marrow Transplant 01/07/17 Hannah Henson MD [address] [place], [place] [phone] Primary Staff Physician Cardiology 08/31/18 Simran Nelson APRN.WAIST FITTER [address] [place] [address] [place] [address] Hospice & Palliative Medicine 08/19/23 Marialuisa Portillo, RN Specialty Machine Tracer Hospice & Palliative Medicine 08/19/23 Naturopathic Oncology Provider Relationship Specialty Start Date End Date Shanthi Lu APRN-WAIST FITTER [address] [place] [address] PCP - General Family Medicine 10/19/23 Naturopathic Oncology Provider Relationship Specialty Start Date End Date Shanthi Lu [facility] [address] [place] [address] PCP - General Family Medicine 10/19/23 Naturopathic Oncology Provider Relationship Specialty Start Date End Date Shanthi Lu [facility] [address] [place] [address] PCP - General Family Medicine 10/19/23 Naturopathic Oncology Provider Relationship Specialty Start Date End Date Shanthi Lu [facility] [address] [place] [address] PCP - General Family Medicine 10/19/23 Naturopathic Oncology Provider Relationship Specialty Start Date End Date Shanthi Lu [facility] [address] [place] [address] PCP - General Family Medicine 10/19/23 Naturopathic Oncology Provider Relationship Specialty Start Date End Date Shanthi Lu [facility] [address] LEFT PM 12/12/24 [place] [address] PCP - General Family Medicine 10/19/23 Naturopathic Oncology Provider Relationship Specialty Start Date End Date [facility] [address] LEFT PM 12/12/24 [place] [address] PCP - General Family Medicine 10/19/23 Naturopathic Oncology Provider Relationship Specialty Start Date End Date Shanthi Lu [facility] [address] LEFT PM 12/12/24 [place] [address] PCP - General Family Medicine 10/19/23 Naturopathic Oncology Provider Relationship Specialty Start Date End Date Shanthi Lu, [facility] [address] LEFT PM 12/12/24 [place] [address] PCP - General Family Medicine 10/19/23 Naturopathic Oncology Provider Relationship Specialty Start Date End Date No Pcp, [place] [address] PCP - General Family Medicine 01/11/25 01/11/25 Naturopathic Oncology Provider Relationship Specialty Start Date End Date Miah Zamarripa, [facility]GER[facility] [address] [place] [address] PCP - General Internal Medicine 01/12/25 Naturopathic Oncology Provider Relationship Specialty Start Date End Date Miah Zamarripa, [facility] [address] [place] [address] PCP - General Internal Medicine 01/12/25 Reason for Visit (unrecogniz ed section and content) Reason Comments Hodgkin lymphoma New patient consult Reason Onset Date Comments Refill Request 08/11/2023 Reason Comments Lymphoma Reason Comments Insurance Authorization Reason Comments Lymphoma Follow up Reason Comments Initial Consult Reason Comments Consult Reason Comments Lymphoma Reason Comments Results Reason Onset Date Comments Refill Request 01/22/2024 Reason Comments Future Appointment Reason Comments Medication Authorization Buprenorphine p atches Reason Comments Lab Orders Reason Comments Radiology NM Specialty Diagnoses / Procedures Referred By Contact Referred To Contact MOLECULAR & FUNCTIONAL IMAGING Diagnoses 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) Abnormal finding on imaging Procedures NM PET/CT SKULL-THIGH SUBSEQUENT PET IMAGING CT ATTENUATION SKULL BASE MID-THIGH Rich Hill MD [address] [place] [address] [place] [address] Molecular & Functional Imaging [address] [place] [address] Referral ID Status Reason Start Date Expiration Date V isits Requested Visits Authorized [id number] Closed Auto-Generate d Referral 01/04/2024 02/02/2024 1 1 Specialty Diagnoses / Procedures Referred By Contact Referred To Contact MOLECULAR & FUNCTIONAL IMAGING Diagnoses 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 ([facility]) Abnormal findings on imaging test Rich Hill MD [address] [place] [address] [place] [address] [facility] [address] [facility] [place] [address] Referral ID Status Reason Start Date Expiration Date Visits Requested Visits Authorized [id number] Pending Review Specialty Services Required 12/22/2023 12/21/2024 1 1 Reason Onset Date Comments Med Refill 03/28/2024 Reason Comments Eye Exam Specialty Diagnoses / Procedures Referred By Contac t Referred To Contact Ophthalmology Diagnoses Toxoplasmosis Chorioretinitis of both eyes Oliva Cornell J, OD [address] [place] [address] Phone: tel: [facility] [address] [place] [address] Phone: tel: fax: Referral ID Status Reason Start Date Expiration Date V isits Requested Visits Authorized [id number] Closed Specialty Services Required 07/14/2024 07/14/2025 1 1 Reason Comments Records faxed Reason Comments controlled medications Reason Onset Date Comments Referral 11/01/2024 Reason Comments New Patient Specialty Diagnoses / Procedures Referred By Contac t Referred To Contact Oncology Diagnoses 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 [place] [address] Phone: tel: fax: [facility] [address] [place] [address] Phone: tel: fax: Referral ID Status Reason Start Date Expiration Date V isits Requested Visits Authorized [id number] Closed Specialty Services Required 12/30/2024 12/30/2025 1 1 FOR RECORDS PERTAINING TO PATIENTS WHO ARE OR HAVE BEEN ENROLLED IN A CHEMICAL DEPENDENCY/SUBSTANCEABUSE PROGRAM, SOME INFORMATION MAY BE OMITTED. This clinical summary was aggregated from multiple sources. Caution should be exercised in using it in the provision of clinical care. This summary normalizes information from multiple sources, and as a consequence, information in this document may materially change the coding, format and clinical context of patient data. In addition, data may be omitted in some cases. CLINICAL DECISIONS SHOULD BE BASED ON THE PRIMARY CLINICAL RECORDS. [facility] [employer], [facility]. provides no warranty or guarantee of the accuracy or completeness of information in this document.
--- OUTSIDE RECORDS SUMMARY | 2025-01-25 19:36 | XMS_ITS | Encounter Summary ---
Author Organization [email or web address] tem Address [facility]-[id number] [address] [place] [address] Care Team Providers Care Home Health Care Case Manager Name Role Phone Xavier Zamarripa CLINICAL ADMINISTRATOR-ACCESS LIAISON Primary Care Provider + Encounter Details Date Type Department Care Team (Latest Contact Info) Description 01/16/2025 Travel Social History Tobacco Use Types Packs/Day [...] Description 01/30/2025 11:00 AM EDT Office Visit [facility] General [facility] [address] [place] [address] Jennifer Bender APRN-ACCESS LIAISON [address] [place] [address] 02/07/2025 12:00 PM EDT Office Visit [facility] [address] [place] [address] Cameron Soria PA [address] [place] [address] 03/27/2025 11:00 AM EDT Office Visit [facility] Internal Medicine - Family Medicine [address] [place] [address] Xavier Zamarripa, CLINICAL ADMINISTRATOR-ACCESS LIAISON [address], [address] [address] documented as of this encounter Visit Diagnoses Not on filedocumented in this encounter Additional Health Concerns Assessment Noted Time PHQ-9 Depression Total Score: 0 10/21/19 3:36 PM EDT A Body Mass Index follow-up plan has been documented for the patient 10/24/2024 1:22 PM EDT documented as of this encounter Care Teams Home Health Care Case Manager Relationship Specialty Start Date End Date Xavier Zamarripa, CLINICAL ADMINISTRATOR-ACCESS LIAISON [address] [place] [address] PCP - General Internal Medicine 01/12/25 documented as of this encounter
--- OUTSIDE RECORDS SUMMARY | 2025-01-25 19:36 | XMS_ITS | Encounter Summary ---
Author Organization [employer] tem Address [facility]-[id number] [address] 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 ([facility]-H[facility]) Social History Tobacco Use Types Packs/Day Years [...] Description 01/30/2025 11:00 AM EDT Office Visit [facility] General Surgery [address] [place] [address] Jennifer Bender CENTRAL STERILE SUPPLY TECHNICIAN-PLASTIC TOP ASSEMBLER [address] [place] [address] 02/07/2025 12:00 PM EDT Office Visit [facility] [address] [place] [address] Cameron Soria PA [address] [facility] [address] [place] [address] 03/27/2025 11:00 AM EDT Office Visit [facility] Internal Medicine - Family Medicine [address] [place] [address] Xavier Zamarripa, CENTRAL STERILE SUPPLY TECHNICIAN-PLASTIC TOP ASSEMBLER [address], [address] [address] documented as of this encounter Visit Diagnoses Diagnosis 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
--- OUTSIDE RECORDS SUMMARY | 2025-01-25 19:36 | XMS_ITS | Patient Health Record ---
Author Organization [facility] Address [address] [place], [place] [address] Support Name Relationship Address Phone [facility] , [place] Johan Seay Guarantor Unknown [phone] Reason For Referral No Information Social History Sex Assigned At : Social History Observation Description Sex Assigned At Male Problems Problem Type SNOMED Code ICD Code Onset Dates Problem Status W/U Status Risk Notes Problem Generalized aches and pains (82609403) Body aches (R52) Active confirmed Comment:Pain medication [...] Coverage End Date Medicaid [address] [place] [id number] Johan Seay Self - patient is the insured Medical (General) History Surgical History Surgery Date(Month/Year) Appendectomy, ProblemStatus: Active,
--- OUTSIDE RECORDS SUMMARY | 2025-01-25 19:36 | XMS_ITS | Encounter Summary ---
Author Organization [employer] tem Address [id number] [address] 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 ([facility]-HCC) Sal Pham MD [address] [place] [address] Phone: tel: fax: [facility] [address] [place] [address] Phone: tel: fax: Referral ID Status Reason Start Date Expiration Date Visits Requested Visits Authorized [id number] Pending Review Specialty Services Required 01/19/2025 01/19/2026 1 1 Encounter Details Date Type Department Care Team (Late st Contact Info) Description 01/19/2025 Documentation Jovita Moreno [facility] - Medical Oncology [facility] [place] [address] Che King RN Social History Tobacco Use Types Packs/Day [...] as of this encounter Progress Notes * Che King RN - 01/19/2025 11:33 AM EDT Patient is here in follow up with Dr. Pham for Hodgkin's Lymphoma. Received the following orders: [...] to private vehicle. documented in this encounter Plan of Treatment Upcoming Encounters Date Type Department Care Team (Late st Contact Info) Description 01/30/2025 11:00 AM EDT Office Visit [facility] Physicians General Surgery [address] [place] [phone] Jennifer Bender, CYLINDER TESTER-WASHING TUB OPERATOR [address] [place] [address] 02/07/2025 12:00 PM EDT Office Visit [facility] [address] [place] [phone] Cameron Soria PA [address] [place] [address] 03/27/2025 11:00 AM EDT Office Visit [facility] Physicians Internal Medicine - Family Medicine [address] [place] [phone] Xavier Zamarripa, CYLINDER TESTER-WASHING TUB OPERATOR [address], [address] [address] Scheduled Referrals Name Type Priority Associated Diagnoses Orde r Schedule [facility] - [place], [place] Outpatient Referral Routine 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) 1 Occurrences starting 01/19/2025 until 01/19/2026 documented as of this encounter Visit Diagnoses Diagnosis 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
--- OUTSIDE RECORDS SUMMARY | 2025-01-25 19:36 | XMS_ITS ---
Author Organization [employer] tem Address [facility] [place]-[id number] [address] [place] [address] Care Team Providers Care Petroleum Inspector Name Role Phone Xavier Zamarripa Morales WELCOME DESK AGENT-INFORMATICA Primary Care Provider + Active Problems Problem Noted Date Diagnosed Date Inguinal lymphadenopathy 01/19/2025 Nodular lymphocyte predomina nt Hodgkin lymphoma of [...]
--- OUTSIDE RECORDS SUMMARY | 2025-01-25 19:36 | XMS_ITS | Encounter Summary ---
Author Organization [facility] tem Address [facility] [id number] [address] [place] [address] Care Team Providers Care Asbestos Brake Lining Finisher Name Role Phone Xavier Zamarripa Morales LANEN-SILK SCREEN OPERATOR Primary Care Provider + Encounter Details Date Type Department Care Team (Late st Contact Info) Description 01/27/2024 Telephone [facility] - ENT [address] [place] [address] Betsey Frank MA Social History [...] Description 01/30/2025 11:00 AM EDT Office Visit [facility] Physicians General Surgery [address] [place] [address] Jennifer Bender MRI MANAGER-SILK SCREEN OPERATOR [address] [place] [address] 02/07/2025 12:00 PM EDT Office Visit [facility] [address] [phone] Cameron Soria PA [address] [facility] 2nd [place] [address] 03/27/2025 11:00 AM EDT [facility] - [facility] Medicine [address] [place] [phone] Xavier Zamarripa, MRI MANAGER-SILK SCREEN OPERATOR [address], [address] [address] documented as of this encounter Visit Diagnoses Not on filedocumented in this encounter Additional Health Concerns Assessment Noted Time PHQ-9 Depression Total Score: 0 12/15/19 24 1:49 PM EDT A Body Mass Index follow-up plan has been documented for the patient 12/16/2023 12:56 PM EDT documented as of this encounter Care Teams Asbestos Brake Lining Finisher Relationship Specialty Start Date End Date Xavier Zamarripa, MRI MANAGER-SILK SCREEN OPERATOR [address] [place] [address] PCP - General Internal Medicine 01/12/25 documented as of this encounter
--- OUTSIDE RECORDS SUMMARY | 2025-01-25 19:36 | XMS_ITS | Encounter Summary ---
Author Organization [facility] tem Address [facility] [place]-[id number] [address] [place] [address] Care Team Providers Care Sports Recruiter Name Role Phone Xavier Zamarripa WRAPPER LEAF INSPECTOR-PHOTOENGRAVING MACHINE OPERATOR/TENDER Primary Care Provider + Encounter Details Date Type Department Care Team (Late st Contact Info) Description 12/15/2024 Telephone [facility] - [place] Imaging [address] [place] [address] Autumn Blue, RN Social History Tobacco Use Types Packs/Day [...] Description 01/30/2025 11:00 AM EDT Office Visit [facility] Physicians General Surgery [address] [place] [address] Jennifer Bender WRAPPER LEAF INSPECTOR-PHOTOENGRAVING MACHINE OPERATOR/TENDER [address] [facility] [address] 02/07/2025 12:00 PM EDT Office Visit [facility] - Pain Management Clinic [address] [phone] Cameron Soria PA [address] [place] [address] 03/27/2025 11:00 AM EDT Office Visit [facility] Physicians Internal Medicine - Family Medicine [address] [place] [address] Xavier Zamarripa, WRAPPER LEAF INSPECTOR-PHOTOENGRAVING MACHINE OPERATOR/TENDER [address], [place] [address] documented as of this encounter Visit Diagnoses Not on filedocumented in this encounter Additional Health Concerns Assessment Noted Time PHQ-9 Depression Total Score: 0 10/21/19 3:36 PM EDT A Body Mass Index follow-up plan has been documented for the patient 10/24/2024 1:22 PM EDT documented as of this encounter Care Teams Sports Recruiter Relationship Specialty Start Date End Date Xavier Zamarripa, WRAPPER LEAF INSPECTOR-PHOTOENGRAVING MACHINE OPERATOR/TENDER [address] [place] [address] PCP - General Internal Medicine 01/12/25 documented as of this encounter
--- OUTSIDE RECORDS SUMMARY | 2025-01-25 19:36 | XMS_ITS | Encounter Summary ---
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) Procedures PET CT skull to thigh Sal Pham MD [address] [place] [address] Phone: tel: fax: Referral ID Status Reason Start Date Expiration Date V isits Requested Visits Authorized [id number] Pending Review 11/25/2024 11/25/2025 1 1 Encounter Details Date Type Department Care Team (Late st Contact Info) Description 11/25/2024 Orders Only Jovita Moreno [facility] Cancer Center - Medical Oncology [address] [place] [phone] Altagracia Brown, SANDRA Nodular lymphocyte predominant Hodgkin [...] Description 01/30/2025 11:00 AM EDT Office Visit [facility] Physicians General Surgery [address] [place] [address] Jennifer Bender, ALTERATION INSPECTOR-PIPELINE INSPECTOR [address] [place] [address] 02/07/2025 12:00 PM EDT Office Visit [facility] Management Clinic [address] [place] [address] Cameron Soria PA [address], [address] [place] [address] 03/27/2025 11:00 AM EDT Office Visit [facility] Physicians Internal Medicine - Family Medicine [address] [place] [phone] Xavier Zamarripa, ALTERATION INSPECTOR-PIPELINE INSPECTOR [address], [address] [address] Scheduled Orders Name Type Priority Associated Diagnoses Orde r Schedule PET CT skull to thigh Imaging Routine 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
--- OUTSIDE RECORDS SUMMARY | 2025-01-25 19:36 | XMS_ITS | Encounter Summary ---
Author Organization [employer] tem Address [facility] [id number] [address] [place] [address] Care Team Providers Care Elastic Attacher Overlock Name Role Phone Xavier Zamarripa APRN-ASSISTANT GUEST SERVICES MANAGER Primary Care Provider + Reason for Referral * Diagnostic Imaging (Routine) - Closed Specialty Diagnoses / Procedures Referred By Contac t Referred To Contact Radiology Diagnoses Pain Procedures NON [facility] PET CT WHOLE BODY [facility] [employer] [address] [place] [phone] Phone: tel: fax: Referral ID Status Reason Start Date Expiration Date Visits Re quested Visits Authorized [id number] Closed 01/13/2024 01/12/2025 1 1 * Diagnostic Imaging (Routine) - Closed Specialty Diagnoses / Procedures Referred By Contac t Referred To Contact Radiology Diagnoses Pain Procedures NON [facility] PET CT WHOLE BODY [facility] [address] [place] [phone] Phone: tel: fax: Referral ID Status Reason Start Date Expiration Date Visits Re quested Visits Authorized [id number] Closed 01/13/2024 01/12/2025 1 1 Encounter Details Date Type Department Care Team (Late st Contact Info) Description 01/13/2024 Orders Only [facility] [address] [place] [phone] External, Scanning Provider Pain (Primary Dx) Social [...] Description 01/30/2025 11:00 AM EDT Office Visit [facility] Physicians General Surgery [address] [place] [address] Jennifer Bender, CLOTH SHRINKING MACHINE OPERATOR HELPER-ASSISTANT GUEST SERVICES MANAGER [address] [place] [address] 02/07/2025 12:00 PM EDT Office Visit [facility] [address] [place] [address] Cameron Soria PA [address] [place] [address] 03/27/2025 11:00 AM EDT Office Visit [facility] Physicians Internal Medicine - Family Medicine [address] [place] [address] Xavier Zamarripa, CLOTH SHRINKING MACHINE OPERATOR HELPER-ASSISTANT GUEST SERVICES MANAGER [address], [address] [place] [address] documented as of this encounter Results * [...] documented as of this encounter Care Teams Elastic Attacher Overlock Relationship Specialty Start Date End Date Xavier Zamarripa, CLOTH SHRINKING MACHINE OPERATOR HELPER-ASSISTANT GUEST SERVICES MANAGER [address] [place] [place] [address] PCP - General Internal Medicine 01/12/25 documented as of this encounter
--- OUTSIDE RECORDS SUMMARY | 2025-01-25 19:36 | XMS_ITS | Encounter Summary ---
Author Organization [employer] tem Address [facility] [place]-[id number] [address] [place] [address] Care Team Providers Care Dye And Chemical Coordinator Name Role Phone Xavier Zamarripa DIRECTOR OF ANCILLARY SERVICES-CAMPAIGN COORDINATOR Primary Care Provider + Encounter Details Date Type Department Care Team (Late st Contact Info) Description 08/17/2024 Orders Only [facility] [address] [place] [address] Bina Johnson, RN Social History Tobacco Use [...] 01/30/2025 11:00 AM EDT Office Visit [facility] Physicians General Surgery [address] [place] [address] Jennifer Bender DIRECTOR OF ANCILLARY SERVICES-CAMPAIGN COORDINATOR [address] [place] [address] 02/07/2025 12:00 PM EDT Office Visit [facility] Management Clinic [address] [place] [phone] Cameron Soria PA [address] [facility] 2nd [place] [address] 03/27/2025 11:00 AM EDT [facility] Medicine [address] [place] [address] Xavier Zamarripa, DIRECTOR OF ANCILLARY SERVICES-CAMPAIGN COORDINATOR [address], [place] [address] documented as of this encounter Visit Diagnoses Not on filedocumented in this encounter Additional Health Concerns Assessment Noted Time PHQ-9 Depression Total Score: 0 12/15/19 24 1:49 PM EDT A Body Mass Index follow-up plan has been documented for the patient 07/25/2024 1:29 PM EST documented as of this encounter Care Teams Dye And Chemical Coordinator Relationship Specialty Start Date End Date Xavier Zamarripa, DIRECTOR OF ANCILLARY SERVICES-CAMPAIGN COORDINATOR [address] [place] [address] PCP - General Internal Medicine 01/12/25 documented as of this encounter
--- OUTSIDE RECORDS SUMMARY | 2025-01-25 19:36 | XMS_ITS | Encounter Summary ---
Author Organization [facility] tem Address [facility] [place][id number] [address] [place] [address] Care Team Providers Care Contingents Supervisor Name Role Phone Xavier Zamarripa SCRIPT WORKER-DIRECTOR OF FAMILY SERVICE CENTER Primary Care Provider + Encounter Details Date Type Department Care Team (Late st Contact Info) Description 01/27/2024 Orders Only [facility]icians Internal Medicine - Family Medicine [address] [place] [phone] Ref Prov, [place] [address] Social History Tobacco Use Types Packs/Day Years [...] 11:00 AM EDT Office Visit [facility] Physicians General Surgery [address] [place] [phone] Jennifer Bender APRN-DIRECTOR OF FAMILY SERVICE CENTER [address] [place] [address] 02/07/2025 12:00 PM EDT Office Visit [facility] - Pain Management Clinic [address] [place] [address] Cameron Soria, MERLINE [address] [place] [address] 03/27/2025 11:00 AM EDT Office Visit [facility] Physicians Internal Medicine - Family Medicine [address] [place] [address] Xavier Zamarripa, SCRIPT WORKER-DIRECTOR OF FAMILY SERVICE CENTER [address], [address] [address] documented as of this encounter Procedures Procedure [...] documented as of this encounter Care Teams Contingents Supervisor Relationship Specialty Start Date End Date Xavier Zamarripa, SCRIPT WORKER-DIRECTOR OF FAMILY SERVICE CENTER [address] [place] [address] PCP - General Internal Medicine 01/12/25 documented as of this encounter
--- OUTSIDE RECORDS SUMMARY | 2025-01-25 19:36 | XMS_ITS | Clinical Summary ---
Author Organization [facility] Address [id number] [address] [place] [address] Care Team Providers Care Hand Potter Name Role Phone Xavier Zamarripa Morales STRIKE PLATE ATT[employer]ER-PRODUCTION SORTER Primary Care Provider + Allergies Active Allergy Reactions Criticality Noted Date Comments Amoxicillin Hives,Itching,Swelling Low 07/11/2018 Lip swelling Contact Metal Agent Itching,Rash Low 01/03/2021 Sulfamethoxazole [...] mouth as needed. Last dose 01/30/24 Active gabapentin (NEURONTIN) 300 mg capsuleIndicati ons:Chronic midline low back pain with sciatica, sciatica laterality unspecified Take 1 capsule (300 mg total) by mouth 3 (three) times a day. 90 capsule 3 10/21/19 25 Active CAPLYTA 42 mg capsule capsule Take 1 capsule (42 mg total) by mouth in the morning. 12/28/19 25 Active acetaminophen (TYLENOL EXTRA STRENGTH) 500 mg tablet Take 2 tablets (1,000 mg total) by mouth every 6 (six) hours. 30 tablet 01/17/20 25 Active ibuprofen (MOTRIN) 600 mg tablet Take 1 tablet (600 mg total) by mouth every 6 (six) hours. 30 tablet 01/17/20 25 Active albuterol sulfate 90 mcg/actuation aerosol powdr breath activated 07/17/19 25 025 Discontinued(Th erapy completed) paliperidone (INVEGA) 6 mg 24 hr tablet 06/01/20 24 025 Discontinued sildenafiL (VIAGRA) 50 mg tabletIndicatio ns:Drug-induced erectile dysfunction Take 1 tablet (50 mg total) by mouth daily as needed for erectile dysfunction. 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); Inguinal lymphadenopathy 01/19/2025 Refill [facility] - Medical Oncology [address] [place] [phone] Sal Pham MD 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) 01/19/2025 Documentation [facility] - Medical Oncology [address] [place] [phone] Che King RN 01/16/2025 12:15 PM EDT - 01/16/2025 1:15 PM EDT Surgery [facility] - Surgery [address] [place] [address] Scot Pang MD BIOPSY LYMPH NODE INGUINAL [93549 (CPT )] 01/16/2025 10:43 AM EDT Anesthesia Event [facility] - Surgery [address] [place] [address] Chevy Ray MD 01/16/2025 9:53 AM EDT - 01/16/2025 12:07 PM EDT Hospital Encounter [facility] - Surgery [address] [place] [address] Scot Pang MD Cancer associated pain (Primary Dx); 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) Discharge Disposition: Home 01/16/2025 Travel 01/11/2025 12:45 PM EDT Procedure visit [facility] - Pre Admit [address] [place] [address] Preop examination (Primary Dx) 01/11/2025 12:05 PM EDT - 01/11/2025 11:59 PM EDT Hospital Encounter [facility] - Cardiovascular [address] [place] [address] Chevy Ray MD Preop examination Discharge Disposition: Home 01/10/2025 11:00 AM EDT Office Visit [facility] General Surgery [address] [place] [address] Scot Pang MD 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) (Primary Dx); Abnormal findings on imaging test; 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) 01/10/2025 Travel 12/30/2024 Orders Only [facility] - Medical Oncology [facility] [place] [phone] Altagracia Brown, SANDRA 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) (Primary Dx); Abnormal findings on imaging test; 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) 12/30/2024 Results Follow-Up [facility] - Ultrasound [address] [place] [phone] Sla Pham MD Surgical Pathology - Tissue (Biopsy), Flow Cytometry, Varies 12/22/2024 1:30 PM EDT - 12/22/2024 11:59 PM EDT Hospital Encounter [facility] - Ultrasound [address] [place] [address] Sal Pham MD 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); Abnormal findings on imaging test Discharge Disposition: Home 12/20/2024 Travel 12/15/2024 12:45 PM EDT Office Visit [facility] - Medical Oncology [address] [place] [phone] Sal Pham MD 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) (Primary Dx); 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) 12/15/2024 Telephone [facility] - CT Imaging [address] [place] [address] Autumn Blue, SANDRA 12/15/2024 [facility]ation [facility] - Medical Oncology [address] [place] [phone] Che King RN 12/15/2024 Travel 12/02/2024 8:05 AM EDT - 12/02/2024 11:59 PM EDT Hospital Encounter [facility] [address] [place] [phone] Discharge Disposition: Home 12/02/2024 Travel 11/25/2024 Orders Only [facility] - Medical Oncology [address] [place] [phone] Altagracia Brown, SANDRA 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) (Primary Dx); 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) 11/25/2024 Travel 11/11/2024 8:45 AM EDT Office Visit [facility] - Medical Oncology [address] [place] [phone] Sal Pham MD 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); 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) 11/11/2024 Orders Only [facility] - Medical Oncology [address] [place] [phone] Altagracia Brown, SANDRA 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) (Primary Dx); 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) 11/11/2024 Travel 11/01/2024 Telephone [facility] [address] [place] [address] Lea Olsen Referral 10/26/2024 Orders Only [facility] - Family Medicine [address] [place] [address] Unique Lu, STRIKE PLATE ATTACHER-PRODUCTION SORTER 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) (Primary Dx); 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) 10/26/2024 Telephone [facility] - Family Medicine [address] [place] [address] Cara Hernandez CMA from Last 3 Months Immunizations Immunization Administration [...] Mass Index 31.7 01/19/2025 11:02 AM EDT Plan of Treatment Upcoming Encounters Date Type Department Care Team (Late st Contact Info) Description 01/30/2025 11:00 AM EDT Office Visit [facility] General [facility] [address] [facility] [place] [phone] Jennifer Bender, STRIKE PLATE ATTACHER-PRODUCTION SORTER [address] [place] [address] 02/07/2025 12:00 PM EDT Office Visit [facility] - Pain Management Clinic [address] [place] [phone] Cameron Soria, MERLINE [address] [place], [place] [phone] 03/27/2025 11:00 AM EDT Office Visit [facility] Internal Medicine - Family Medicine [address] [place] [phone] Xavier Zamarripa, STRIKE PLATE ATTACHER-PRODUCTION SORTER [address] [place] [phone] Health Maintenance Due Date Last Done Comments Tobacco Counseling 1980 COVID-19 Vaccine (3 - Modern a risk series) 09/23/2021 08/26/2021, 07/15/2021 Influenza Vaccine 02/13/2025 07/21/2018, 03/12/2017 Adult BMI Follow Up Plan 10/20/2025 10/20/2024 Depression Screening 10/20/2025 10/20/2024 Adult BMI Screening 01/19/2026 01/19/2025 Tobacco Screening 01/19/2026 01/19/2025 DTaP,Tdap and Td Vaccines (6 - Td or Tdap) 01/03/2031 01/03/2021, 12/20/2018, 09/10/2018, Additional history exists Medical Devices Not on file Procedures Procedure Name Priority Date/Time Associated Diagnosis Comments SURGICAL PATHOLOGY Routine 01/16/2025 11:14 AM EDT OR BIOPSY/EXCISION, LYMPH NODE(S) 01/16/2025 10:43 AM EDT right groin lymph node lymphocyte Special Needs possible general anesthesia ECG 12-LEAD Routine 01/11/2025 12:25 PM EDT Preop examination IR BIOPSY LYMPH NODE Routine 12/22/2024 2:17 PM EDT 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) Abnormal findings on imaging test FLOW CYTOMETRY, VARIES Routine 12/22/2024 2:00 PM EDT SURGICAL PATHOLOGY Routine 12/22/2024 2:00 PM EDT 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 Case Report Surgical Pathology Report Case: [id number] Authorizing Provider: Scot Pang MD Collected: 01/16/2025 1114 Ordering Location: [facility] Received: 01/16/2025 1209 [facility] - Surgery Pathologist: Keo Mata MD Specimen: Lymph Node, Right groin lymph node 01/20/2025 11:44 AM EDT [facility] Final Diagnosis Right groin lymph node, excisional biopsy: Benign lymph node with reactive follicular hyperplasia (see comment). No evidence of metastatic malignancy identified. 01/20/2025 11:44 AM EDT [facility] at 1144 EDT Comment There [...] an intradepartmental consultation. 01/20/2025 11:44 AM EDT [facility] Gross Description Received in formalin labeled CARNES, right groin lymph node is an intact lymph node, 2.5 x 1.8 x 1.6 cm. The specimen is serially sectioned and submitted entirely in cassettes A-E. (5,ns,[id number], m2) MD. 01/20/2025 11:44 AM EDT [facility] Embedded Images 01/20/2025 11:44 AM EDT [facility] Tissue Structure of lymph node / Unknown 01/16/2025 11:14 AM EDT 01/16/2025 12:09 PM EDT Comment:Pre-op diagnosis: right groin lymph node lymphocyte Scot Pang MD PATHOLOGY/CYTOLOGY ORDERAB LES Final Result [facility] [address] [place] [address], [place] [phone] * ECG 12 lead (01/11/2025 12:25 PM EDT) 01/11/2025 12:2 5 PM EDT Narrative [facility] - 01/12/2025 10:09 AM EDT Chevy Ray MD ECG ORDERABLES Final Result [facility] * IR biopsy lymph node (12/22/2024 2:17 PM EDT) Anatomical Region Laterality Modality IR N/A Ultrasound 12/22/2024 2:32 PM EDT Narrative 12/22/2024 2:35 PM EDT HISTORY: 44-year-old male with a history of [...] right inguinal lymph node biopsy. Finalized by Chevy Domingo MD on 12/22/2024 2:35 PM Procedure Note Chevy Domingo MD - 12/22/2024 HISTORY: 44-year-old male with a history of lymphoma and a PET positivelymph node in the right groin. Biopsy was requested. PROCEDURE: The procedure was performed by Dr. Domingo. Benefits andpotential risks of procedure were explained to patient and informedwritten consent was obtained. . The patient was brought to the procedure area, and a time out wasperformed. All elements of maximal sterile barrier technique werefollowed, including cap, mask, sterile gown, sterile gloves, large sterilesheet, hand hygiene, and 2% chlorhexidine for percutaneous antisepsis.When ultrasound is used, sterile probe cover and sterile gel were employed. Estimated blood loss was less than 5 mL Following appropriate prep and drape using lidocaine for local anesthesia,a biopsy of the abnormal lymph node in the right groin was performed underultrasound guidance using a 17-gauge guide needle an 18-gauge Temnoneedle. Multiple cores were obtained and submitted to pathology forfurther evaluation. No immediate complications were encountered. The patienttolerated the procedure well and was discharged in stable condition. IMPRESSION: Successful uncomplicated ultrasound-guided right inguinallymph node biopsy. Finalized by Chevy Domingo MD on 12/22/2024 2:35 PM Sal Pham MD [facility] IR ORDERABLES Final Result * Flow Cytometry, Varies (12/22/2024 2:00 PM EDT) Case Report Flow Cytometry Report Case: [id number] Authorizing Provider: Sal Pham MD Collected: 12/22/2024 1400 Ordering Location: [facility] Received: 12/23/[address] [facility] Ultrasound Pathologist: Jhon Dickerson MD Specimen: 8:18 AM EDT [facility] Flow Interpretation No flow cytometric abnormalities. Immunophenotypic analysis of the lymphoid cells demonstrates a mixed population of phenotypically unremarkable T-cells and polyclonal B-cells. No monoclonal lymphoid population is detected. 8:18 AM EDT [facility] at 0818 EDT Flow Interpretation Comment Immunophenotyping antibodies tested: CD3, CD5, CD7, CD10, CD19, CD20, CD23, CD45, [place], and Lambda. Immunophenotyping Comment: Immunophenotyping has been used in this diagnostic evaluation. This test was developed and its performance characteristics determined by the [facility] Department. It has not been [...] as qualified to perform high-complexity clinical testing. [facility]ation [facility], [address] [place] [address], License number: [id number]. 8:18 AM EDT [facility] Embedded Images 8:18 AM EDT [facility] Tissue 12/22/2024 2:00 PM EDT 12/23/2024 4:49 AM EDT us Sal Pham MD PATHOLOGY/CYTOLOGY ORDERABLES Fi nal Result [facility] [address] [place] [address], * PET CT skull to thigh (12/02/2024 12:33 PM EDT) Anatomical Region Laterality Modality Nuc Med N/A Positron Emissio n Tomography (PET) 12/08/2024 8:01 AM EDT Narrative 12/08/2024 8:37 AM EDT History : Nodular lymphocyte predominant Hodgkin lymphoma [...] to raise concern for other pathology If warranted/symptomatic, contrast CT or MRI of the face/orbit and neck could prove useful Small asymmetric globular areas of activity in the sigmoid region may be physiologic. Underlying polyps not excluded. Consider colonic screening when appropriate Presumed asymmetric gynecomastia right breast with low-level activity similar to background mediastinal activity. There are also some prominent collateral vessels in the chest wall or breast tissue. 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 . Procedure : routine PET/CT using F-18 FDG and imaging from the skull baseto the mid thigh. Comparison : January 03 Findings: The rotating raw data image sequence evidence for increased radiotraceractivity in the right inguinal lymph nodes There is what looks like physiologic cardiac and urinary and low-level GItract activity. It is somewhat unusual that the activity in the sigmoidregion shows mild multifocal globular uptake slightly greater than thebackground activity and similar distribution to the previous study.Additional lower GI workup might be considered to check for hypermetabolic polyp Images of the neck show decrease in the hypermetabolic cervicallymphadenopathy. There is some mild residual activity in the right side ofthe lymph nodes near the submandibular glands and carotid and jugularspace. This currently measures 3.5 SUV, previously 3.8 SUV Similar activity on the left side also looks decreased measuring around2.6 SUV currently compared to 3 SUV previous. There is no increase in the cervical hypermetabolic lymphadenopathy There is some nonspecific unusual activity at the inferior aspect of theleft orbit. Correlate for any localized pain or symptoms referable to thisarea that would prompt additional orbital imaging There is some prominent uptake in the tonsillar regions, including somemultilobulated hypermetabolic tissue at the vallecula tongue baseregion. Given the combination of findings, short-term follow-up contrast CT of theface and neck might be useful particularly if the patient has left orbitalpain, throat pain, fever difficulty swallowing There is not significant clavicular activity Activity in the left axillary region and upper arm looks tubularsuggesting some vascular and/or the hepatic radiotracer activity No hypermetabolic axillary, pectoral or chest wall lymphadenopathyotherwise Probable physiologic laryngeal activity There are prominent collateral vessels in the chest wall, breast topectoral region There is asymmetric soft tissue in the right greater than left breast.There is not intense activity on the left. There is mild low-levelactivity on the right similar to the background mediastinal uptake andwithout significant interval change. For reference the activity measuresaround 2 SUV Images of the chest show no suspicious activity. There is a small nodule in the upper portion of the left lower lobesimilar to before without intense activity in that region There are slight increased bandlike opacities near the right pleuralfissure in the mid chest without intense activity There is trace pericardial effusion without pleural effusion There is only mild vascular calcification visible Images of the abdomen and pelvis show no suspicious liver or splenicactivity No splenomegaly No hypermetabolic adrenal mass No hypermetabolic lymphadenopathy in the upper abdomen Again there is what looks like physiologic urinary activity and GI tractactivity, somewhat more globular or focal in the sigmoid region. Considercolonoscopy to check for polyps The hypermetabolic lymph nodes in the right inguinal-femoral region nowmeasures 6.4 SUV and 8 SUV Previous activity measured up to about 2.[address] images it looks like there are small but increased lymph nodesaround the distal abdominal aorta and cava and right greater than leftgroin which do not show intense radiotracer activity currently IMPRESSION: New or increased hypermetabolic lymphadenopathy in the rightinguinal-femoral region measuring 6.4 and 8 SUV, suggesting progression orrecurrence of active lymphoproliferative disorder. Other slightly increased lymph nodes in the right greater than left groinand retroperitoneum do not show intense activity currently The previous hypermetabolic lymphadenopathy in the neck looks slightlydecreased with mild residual uptake right greater than left, 3.5 SUV and 3SUV There is persistent hypermetabolic globular soft tissue along thepharyngeal tonsillar region and tongue base follicular region. Correlatefor symptoms that might prompt additional workup There is a small focus of activity in the inferior left orbit presumedphysiologic in the absence of symptoms to raise concern for otherpathology If warranted/symptomatic, contrast CT or MRI of the face/orbit and neckcould prove useful Small asymmetric globular areas of activity in the sigmoid region may bephysiologic. Underlying polyps not excluded. Consider colonic screeningwhen appropriate Presumed asymmetric gynecomastia right breast with low-level activitysimilar to background mediastinal activity. There are also some prominentcollateral vessels in the chest wall or breast tissue. A smallhypermetabolic skin nodule in the left lower chest wall may be related tothe chest wall varices Small nodular and slight increased bandlike densities left and right lungdo not show any suspicious activity, favoring atelectasis or scarring ----- Deauville five-point scale 5 markedly increased uptake or any new lesion (on response evaluation) ----- Finalized by Ab Pizarro MD on 12/08/2024 8:37 AM Sal Pham MD IMG PET ORDERABLES Final Result from Last 3 Months Insurance [facility] MEDICA[employer] [place] [employer] Care Teams Hand Potter Relationship Specialty Start Date End Date Xavier Zamarripa, STRIKE PLATE ATTACHER-PRODUCTION SORTER [address] [place] [address] PCP - General Internal Medicine 01/12/25
--- OUTSIDE RECORDS SUMMARY | 2025-01-25 19:36 | XMS_ITS | Encounter Summary ---
Author Organization [employer] Address [id number] [address] [place] [address] Care Team Providers Care Senior Android Developer Name Role Phone Xavier Zamarripa Morales CARDIAC CATH LAB RADIOLOGY TECHNOLOGIST-ETCHER APPRENTICE PHOTOENGRAVING Primary Care Provider + Reason for Visit * Reason Onset Date Comments Med Refill 06/27/2024 Encounter Details Date Type Department Care Team (Late st Contact Info) Description 06/27/2024 Refill [facility] - Family Medicine [address] [place] [address] Jess Askew CMA Chronic pain syndrome; Chronic [...] Recorded Purpose and direction in life Unknown 02 /04/2021 Sex and Gender Information Value Date Recorded [...] Description 01/30/2025 11:00 AM EDT Office Visit [facility] General Surgery [address] [place] [phone] Jennifer Bender APRN-ETCHER APPRENTICE PHOTOENGRAVING [address] [place] [address] 02/07/2025 12:00 PM EDT Office Visit [facility] [address] [place] [address] Cameron Soria, MERLINE [address] [facility] 2nd [place] [address] 03/27/2025 11:00 AM EDT Office Visit [facility] Internal Medicine - Family Medicine [address] [place] [address] Xavier Zamarripa, CARDIAC CATH LAB RADIOLOGY TECHNOLOGIST-ETCHER APPRENTICE PHOTOENGRAVING [address], [address] [address] documented as of this encounter Visit Diagnoses Diagnosis Chronic pain syndrome Chronic left hip pain documented in this encounter Additional Health Concerns Assessment Noted Time PHQ-9 Depression Total Score: 0 12/15/19 24 1:49 PM EDT A Body Mass Index follow-up plan has been documented for the patient 12/16/2023 12:56 PM EDT documented as of this encounter Care Teams Senior Android Developer Relationship Specialty Start Date End Date Xavier Zamarripa, CARDIAC CATH LAB RADIOLOGY TECHNOLOGIST-ETCHER APPRENTICE PHOTOENGRAVING [address] [place] [address] PCP - General Internal Medicine 01/12/25 documented as of this encounter
--- OUTSIDE RECORDS SUMMARY | 2025-01-25 19:36 | XMS_ITS | Encounter Summary ---
Author Organization [employer] Address [id number] [address] [place] [address] Care Team Providers Care Automotive Detailer Name Role Phone Xavier Zamarripa DEVELOPER PROGRAMMER-CONCESSION CASHIER Primary Care Provider + Encounter Details Date Type Department Care Team (Late st Contact Info) Description 08/04/2024 [facility] [address] [place] [phone] Jael Garces, JOAN Social History Tobacco Use [...] 01/30/2025 11:00 AM EDT Office Visit [facility] General Surgery [address] [place] [phone] Jennifer Bender APRN-CNP [address] [facility] [place] [address] 02/07/2025 12:00 PM EDT Office Visit [facility] [address] [place] [phone] Cameron Soria PA [address] [place] [address] 03/27/2025 11:00 AM EDT Office Visit [facility] Internal Medicine - Family Medicine [address] [place] [address] Xavier Zamarripa, DEVELOPER PROGRAMMER-CONCESSION CASHIER [address], [address] [address] documented as of this encounter Visit Diagnoses Not on filedocumented in this encounter Additional Health Concerns Assessment Noted Time PHQ-9 Depression Total Score: 0 12/15/19 24 1:49 PM EDT A Body Mass Index follow-up plan has been documented for the patient 07/25/2024 1:29 PM EST documented as of this encounter Care Teams Automotive Detailer Relationship Specialty Start Date End Date Xavier Zamarripa, DEVELOPER PROGRAMMER-CONCESSION CASHIER [address] [place] [place] [address] PCP - General Internal Medicine 01/12/25 documented as of this encounter
--- NOTE | 2025-01-25 19:39 | ED_ITS ---
HPI - Skin/Abscess/Foreign Bdy General Chief complaint: Skin/Abscess/Foreign Body Stated complaint: GROIN LUMP/BUMP & PAIN Time Seen by Provider: 01/25/25 19:30 Source: patient Mode of arrival: walk-in Limitations: no limitations History of Present Illness HPI narrative: history of lymphoma. states was treated in the past. Recent PET scan at [facility] abnormal. Had biopsy of right inguinal node that did not produce results. Then had node removed from same site. He now presents complaining of increasing pain at the site and seepage. No systemic symptoms. No abdominal pain or fever. was treated with Doxycycline 12/07 and again last week with keflex. Related Data Home Medications ?Medication ?Instructions ?Recorded ?Confirmed benzonatate 100 mg capsule mg PO 11/24/24 cyclobenzaprine 10 mg tablet mg 11/24/24 gabapentin 300 mg capsule mg 11/24/24 lumateperone 21 mg capsule mg PO 11/24/24 (Caplyta) lumateperone 10.5 mg capsule mg PO 12/05/24 (Caplyta) Previous Rx's ?Medication ?Instructions ?Recorded aspirin 81 mg capsule 81 mg PO DAILY #30 caps 01/13 10/06 doxycycline hyclate 100 mg capsule 100 mg PO BID 10 da ys #20 caps 11/24/24 [id number]-fwqohgdlj-zsbsdtjoi 3.5 4 drp otic (ear) Q8H 10 days #10 mL 11/24/24 mg-10,000 unit/mL-1 % ear drops,susp Allergies Allergy/AdvReac Type Severity Reaction Status Date / Time sulfamethoxazole (From Allergy Severe hives Verified 01/25/25 19:34 Bactrim) trimethoprim (From Bactrim) Allergy Severe hives Verified 01/25/25 19:34 Review of Systems ROS Status of ROS 10 or more systems reviewed and unremark able except as noted in history and below PFSH PFSH Social History Little interest or pleasure in doing things: not at all Feeling down, depressed, or hopeless: not at all Exam Constitutional Vital Signs, click to edit/add: Last Vital Signs Temp 98.1 F 01/25/25 19:34 Pulse 96 H 01/25/25 19:34 Resp 18 01/25/25 19:34 BP 175/108 H 01/25/25 19:34 Pulse Ox 98 01/25/25 19:34 O2 Del Method Room Air 01/25/25 19:34 Common normals: no apparent distress, average body habitus, oriented x3, no limitations, healthy appearing, alert and well nourished [facility] Common normals: normocephalic and head/scalp atraumatic Respiratory Common normals: normal respiratory effort, no retractions, no use of accessory muscles and clear to auscultation bilaterally Cardio Common normals: regular rate, regular rhythm, S1 normal heart sound and S2 normal heart sound GI Common normals: Normal to inspection, nondistended, normoactive bowel sounds present, soft to palpation and non-tender Other: right inguinal raised structure ? cystic. has repaired incision that appears dry. no surrounding erythema. measures about 3cm Extremity Common normals: normal to inspection and full ROM Neuro Common normals: oriented x3, CN's II-XII intact bilaterally, moves all extremities and no focal motor deficits Psych Appearance: grossly normal Course Vital Signs Vital signs: Vital Signs Temperature 98.1 F 01/25/25 19:34 Pulse Rate 96 H 01/25/25 19:34 Respiratory Rate 18 01/25/25 19:34 Blood Pressure 175/108 H 01/25/25 19:34 Pulse Oximetry 98 01/25/25 19:34 Oxygen Delivery Method Room Air 01/25/25 19:34 Temperature 98.1 F 01/25/25 19:34 Pulse Rate 96 H 01/25/25 19:34 Respiratory Rate 18 01/25/25 19:34 Blood Pressure 175/108 H 01/25/25 19:34 Pulse Oximetry 98 01/25/25 19:34 Oxygen Delivery Method Room Air 01/25/25 19:34 MDM - Skin/Abscess/Foreign Bdy MDM Narrative Medical decision making narrative: past history of lymphoma. Had right inguinal node biopsy followed by lymph node resection. Patient now presents complaining of swelling at the surgical site and seepage of fluid. Also complains of pain. No fever or systemic symptoms. Exam with raised cystic appearing structure with incision healed. no surrounding erythema or obvious seepage at this time. Afebrile. WBC normal. sl. elevation of CRP. CT return with findings of what appears to be a seroma. Patient advised of the findings. Prescribed Toradol for pain and discharged with instructions to follow up with his surgeon Lab Data Labs: Lab Results 01/25/25 Range/Units 19:50 WBC 6.4 (4.0-11.0) 10^3/uL RBC 4.69 L (4.70-6.10) 10^6/uL Hgb 14.5 (14.0-18.0) g/dL Hct 42.2 (42.0-54.0) % MCV 90.0 (80.0-94.0) fL MCH 30.9 (25.9-34.0) pg MCHC 34.4 (29.9-35.2) g/dL RDW 13.2 (11.0-15.0) % Plt Count 203 (150-450) 10^3/uL MPV 9.5 (9.5-13.5) fL Neut % (Auto) 45.2 (43.0-75.0) % Lymph % (Auto) 37.7 (20.5-60.0) % [place] % (Auto) 13.2 H (1.7-12.0) % Eos % (Auto) 3.1 (0.9-7.0) % Baso % (Auto) 0.5 (0.2-2.0) % Neut # (Auto) 2.9 (1.4-6.5) 10^3/uL Lymph # (Auto) 2.4 (1.2-3.8) 10^3/uL [place] # (Auto) 0.9 H (0.3-0.8) 10^3/uL Eos # (Auto) 0.2 (0.0-0.7) 10^3/uL Baso # (Auto) 0.0 (0.0-0.1) 10^3/uL Abs Immat Gran (auto) 0.02 (0.00-0.03) 10^3/uL Imm/Tot Granulo (auto) 0.3 (0.0-0.5) % Sodium 139 (136-145) mmol/L Potassium 3.9 (3.5-5.1) mmol/L Chloride 104 (98-107) mmol/L Carbon Dioxide 28.4 (21.0-32.0) mmol/L Anion Gap 10.5 BUN 19.0 H (7.0-18.0) mg/dL Creatinine 1.06 (0.70-1.30) mg/dL Est GFR ( Amer) >60 (>=60 mL/min/1.73m^2) Est GFR (Non-Af Amer) >60 (>=60 mL/min/1.73m^2) BUN/Creatinine Ratio 17.9 Glucose 97 (74-106) mg/dL Lactate 0.9 (0.4-2.0) mmol/L Calcium 8.8 (8.5-10.1) mg/dL Total Bilirubin 0.3 (0.2-1.0) mg/dL AST 45 H (15-37) U/L ALT 59 (16-63) U/L Alkaline Phosphatase 103 (46-116) U/L C-Reactive Protein 0.55 H (<=0.50) mg/dL Total Protein 6.9 (6.4-8.2) g/dL Albumin 4.0 (3.4-5.0) g/dL Globulin 2.9 g/dL Albumin/Globulin Ratio 1.4 Discharge Plan Discharge Chief Complaint: Skin/Abscess/Foreign Body Clinical Impression: Seroma after procedure Patient Disposition: Home, Self-Care Prescriptions / Home Meds: No Action aspirin 81 mg capsule 81 mg PO DAILY Qty: 30 0RF cyclobenzaprine 10 mg tablet benzonatate 100 mg capsule PO gabapentin 300 mg capsule Caplyta 21 mg capsule PO yssthsfz-yebhljdaa-MO 3.5-10,000-1 mg/mL-unit/mL-% drops,suspension 4 drp otic (ear) Q8H 10 Days Qty: 10 0RF Rx Instructions: Right ear doxycycline hyclate 100 mg capsule 100 mg PO BID 10 Days Qty: 20 0RF Caplyta 10.5 mg capsule PO Print Language: Slovak Instructions: Seroma (DC) Additional Instructions: follow up with your surgeon as planned. Return if any worsening Referrals: Physician,Non-Staff, MD [Primary Care Provider] - 1 week
--- NOTE | 2025-01-25 19:44 | CT_ITS ---
The [address] [address] Patient Name: JOSELYN CARNES MRN: [id number] date: 1980 Sex: M Assigned Patient Location: ER Current Patient Location: ER Accession/Order Number: [id number] Exam Date: 01/25/2025 20:13 Report Date: 01/25/2025 20:21 At the request of: LESLIE HERNANDEZ MD Procedure: CT abdomen pelvis w con CT Abdomen and Pelvis withcontrast TECHNIQUE: Axial imaging with 2-D reconstruction.100 cc of Omnipaque 300. The CT exam was performed using one or more the following dose reduction techniques: Automated exposure control, adjustment of the MA and/or Kv according to patient size, or use of the iterative reconstruction technique. COMPARISON: None History: Right groin incision drainage/mass LIMITATIONS: None LOWER THORAX mild atelectasis/scarring LIVER: Unremarkable GALLBLADDER: No gallbladder abnormality identified. BILE DUCTS: No dilatation SPLEEN: Unremarkable PANCREAS: Unremarkable ADRENAL GLANDS: Unremarkable KIDNEYS:Unremarkable AORTA: No abdominal aortic aneurysm identified. RETROPERITONEUM: No significant retroperitoneal abnormalities identified. MESENTERY:Unremarkable STOMACH:Unremarkable SMALL BOWEL: The small bowel loops are nondistended. APPENDIX: The appendix is normal. COLON: Unremarkable URINARY BLADDER: Urinary bladder is unremarkable. REPRODUCTIVE SYSTEM: Reproductive structures are unremarkable. PNEUMOPERITONEUM: None PERITONEAL FLUID:None BONY STRUCTURES: Unremarkable ABDOMINAL WALL: Bilateral mildly prominent inguinal lymphadenopathy. Largest measuring up to 12 mm in short axis dimension. Unorganized the small fluid collections in the right inguinal region. May represent small seromas. No subcutaneous air. CT/CT abdomen pelvis w con IMPRESSION: Mildly prominent bilateral inguinal lymph nodes greater on the right. May consider reactive process. Small fluid collections in the right groin region which are unorganized and likely represent small developing seromas. No subcutaneous air. May consider short-term follow-up assessment of right inguinal lymph nodes. Impression dictated by: Samuel Wood M.D. 01/25/2025 8:21 PM Dictation Location: [facility] Electronically authenticated by: [id number] Y Date: 01/25/2025 20:21
[2025-01-25 20:07] LABS: Hematocrit 42.2 % (42.0-54.0); Hemoglobin 14.5 g/dL (14.0-18.0); Immature Granulocytes Abs Auto 0.02 10^3/uL (0.00-0.03); Immature Granulocytes Pct Auto 0.3 % (0.0-0.5); Lymphocytes Absolute Auto 2.4 10^3/uL (1.2-3.8); Mean Corpuscular HGB Conc 34.4 g/dL (29.9-35.2); Mean Corpuscular Hemoglobin 30.9 pg (25.9-34.0); Mean Corpuscular Volume 90.0 fL (80.0-94.0); Platelet Count 203 10^3/uL (150-450); Red Blood Count 4.69 10^6/uL (4.70-6.10); White Blood Count 6.4 10^3/uL (4.0-11.0)
[2025-01-25 20:25] LABS: Lactate/Lactic Acid 0.9 mmol/L (0.4-2.0)
[2025-01-25 20:32] LABS: Alanine Aminotransferase 59 U/L (16-63); Albumin Globulin Ratio 1.4; Albumin Level 4.0 g/dL (3.4-5.0); Alkaline Phosphatase 103 U/L (46-116); Anion Gap 10.5; Aspartate Amino Transferase 45 U/L (15-37); Blood Urea Nitrogen 19.0 mg/dL (7.0-18.0); Calcium 8.8 mg/dL (8.5-10.1); Carbon Dioxide 28.4 mmol/L (21.0-32.0); Chloride 104 mmol/L (98-107); Estimated GFR (African America >60 (>=60 mL/min/1.73m^2); Estimated GFR (Non-African Ame >60 (>=60 mL/min/1.73m^2); Globulin 2.9 g/dL; Glucose 97 mg/dL (74-106); Potassium 3.9 mmol/L (3.5-5.1); Sodium 139 mmol/L (136-145); Total Protein 6.9 g/dL (6.4-8.2)
--- NOTE | 2025-01-25 20:53 | PC.NURSE ---
cult wound sent to lab
[2025-01-25] MEDS: KETOROLAC TROMETHAMINE 30 MG/ML VIAL IVP (21:20)
== END 2025-01-25 21:24 | disposition home or self-care (01) ==
PROVIDERS: Emergency Provider Internal Medicine
DX: L76.34 Postprocedural seroma of skin and subcutaneous tissue following other procedure (principal); R10.31 Right lower quadrant pain
CPT/HCPCS: 36415; 74177; 80053; 83605; 85025; 86140; 87070; 87075; 87077; 87186; 96374; 99285; J1885; Q9967

== ENCOUNTER 2025-02-07 18:03 | Observation (INO) | payer MEDICAID, SELFPAY ==
[2025-02-07] VITALS (39 sets, daily range): BP systolic 127–174; BP diastolic 67–90; PULSE 103–147; TEMP 37.2–37.3; O2SAT 84–97; BMI 31.1; BMI 30.8
--- NOTE | 2025-02-07 18:14 | ECG_ITS ---
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
--- NOTE | 2025-02-07 18:14 | XR_ITS ---
The [place] [id number] Patient Name: JOSELYN CARNES MRN: [id number] date: 1980 Sex: M Assigned Patient Location: ER Current Patient Location: ER Accession/Order Number: [id number] Exam Date: 02/07/2025 18:41 Report Date: 02/07/2025 18:57 At the request of: ENA STOREY Procedure: XR chest 2V XR chest 2V 02/07/2025 6:43 PM SIGNS AND SYMPTOMS: ^short of breath ^N PROTOCOL: Frontal and lateral radiographs of the chest COMPARISON: None FINDINGS: The trachea is midline. The heart and mediastinal structures are within normal limits. There is a small right-sided pleural effusion. The lung parenchyma is clear. The bony thorax is intact. XR/XR chest 2V IMPRESSION: There is a small right-sided pleural effusion. No focal consolidation. Impression dictated by: Jelani Santana M.D. 02/07/2025 6:57 PM Dictation Location: [place] [address] Electronically authenticated by: [id number] Y Date: 02/07/2025 18:57
--- OUTSIDE RECORDS SUMMARY | 2025-02-07 18:17 | XMS_ITS | CCD ---
Author Organization [facility] Care Team Providers Care Plug Paster Name Role Phone RODRICK MARTINEZ Attending Unavailable CHIRRI, IQRA Consulting Unavailable CHIRRI, IQRA Admitting Unavailable CHIRRI, IQRA Attending Unavailable PARINJA, DEANNA Admitting Unavailable PARINJA, DEANNA Attending Unavailable CASSIE MOREIRA Consulting Unavailable PROVIDER, NONE Primary Care Unavailable ESTEBAN REYES Attending Unavailable PROVIDER, NONE Primary Care Unavailable SONJA CAGLE C Consulting Unavailable Dilcia Ramirez Primary Care Provider Nirav DIEGO, PhD, Ruy Marlow Unavailable [phone] Lupis Bass (Eitan) Unavailable Hannah Henson MD Unavailable Hannah Henson MD Unavailable [phone] Nirav DIEGO, PhD, Ruy T Unavailable [phone] Lupis Bass (Eitan) Unavailable Hannah Henson MD Unavailable Simran Nelson APRN.CNP Unavailable Bandar FLORES, Marialuisa Moreno Unavailable Unavail able SHANTHI LU Referring Unavailable SHANTHI LU Primary Care Unavailable AMINAH, REHAB Referring Unavailable SHANTHI LU Primary Care Unavailable AMINAH, REHAB Admitting Unavailable AMINAH, REHAB Attending Unavailable SHANTHI LU Primary Care Unavailable SHANTHI LU Primary Care Unavailable Aly AIRPLANE PILOT SUPERVISOR-Shanthi PULLIAM Primary Care Provid er Ayl AIRPLANE PILOT SUPERVISOR-Shanthi PULLIAM Primary Care Provid er TOBI PLATA Attending Unavailable TOBI PLATA Referring Unavailable SIMRAN NELSON Attending Unavailterri e SIMRAN NELSON Referring Unavailabl RICH Sanchez Referring Unavailable RICH HILL Attending Unavailable Lu AIRPLANE PILOT SUPERVISOR-[facility], Shanthi J Primary Care Provid er No Pcp, No Pcp Primary Care Provider Unavailterri e Rolfotjosé miguel AIRPLANE PILOT SUPERVISOR-[facility], Miah Nielsen Primary Care Provider VALDEMAR GARCIA Attending Unavailable LU, SHANTHI J Referring Unavailable LU, SHANTHI J Primary Care Unavailable RADHA, VALDEMAR Lopez Referring Unavailable LU, SHANTHI J Primary Care Unavailable RADHA, VALDEMAR Lopez Referring Unavailable LU, SHANTHI J Primary Care Unavailable VALDEMAR GARCIA Attending Unavailable LU, SHANTHI J Referring Unavailable LU, SHANTHI J Primary Care Unavailable VALDEMAR GARCIA Attending Unavailable RADHA, ALDRICH N Referring Unavailable LU, SHANTHI J Primary Care Unavailable RESHMA, MENNATALLAH M Referring Unavailable NO PCP, NO PCP Primary Care Unavailable DILCIA GRIMALDO Attending Unavailable DILCIA GRIMALDO Referring Unavailable NO PCP, NO PCP Primary Care Unavailable RESHMA, MENNATALLAH M Admitting Unavailable RESHMA, MENNATALLAH M Attending Unavailable RESHMA, MENNATALLAH M Referring Unavailable LU, SHANTHI J Primary Care Unavailable RADHA, ALDRICH N Attending Unavailable LU, SHANTHI J Referring Unavailable MIAH ZAMARRIPA Primary Care Unavailable LU, SHANTHI J Attending [...] Unavailable LU, SHANTHI J Primary Care Unavailable RESHMA, MENNATALLAH M Attending Unavailable RADHA, VALDEMAR Lopez Referring Unavailable LU, SHANTHI J Primary Care Unavailable JENNIFER BENDER Attending Unavailable LU, SHANTHI J Referring Unavailable MIAH ZAMARRIPA Primary Care Unavailable Allergies Allergy Classification Reported Allergen(s) Allergy Type Date of Onset Reaction(s) Facility Penicillins (antibiotic) (1 source) Amoxicillin Drug Allergy 07-12-19 19 Swelling [facility] Work Phone: Sulfamethoxazole / Trimethoprim (1 source) Sulfamethoxazole / Trimethoprim Drug Allergy 05-12-20 16 [facility] Work Phone: (20 sources) Amoxicillin; Translations: [AMOXICILLIN] Drug Allergy 07-11-19 19 Swelling, Hives, Itching [facility] Work Phone: (20 sources) Sulfamethoxazole / Trimethoprim; Translations: [SULFAMETHOXAZOLE-T RIMETHOPRIM] Drug Allergy 05-12-20 16 [facility] Work Phone: (20 sources) Sulfamethoxazole; Translations: [SULFAMETHOXAZOLE] Drug Allergy 01-13-20 13 Hiv [facility] (20 sources) CONTACT METAL AGENT; Translations: [CONTACT METAL AGENT] Propensity to adverse reactions to food (disorder) 01-04-20 21 Itching, Rash [facility] Medications Current Medications Medication Drug Class(es) Dates Sig (Normalized) Sig (Original) acetaminophen 500 mg oral tablet (4 sources) Start: 01-16-2025 take 2 tablets by [...] mouth. docusate sodium 50 mg / sennosides, shelter 8.6 mg oral tablet (20 sources) Start: 4 End: take 1 tablet by mouth once [...] (20 sources) Antiarrhythmic, Amide Local Anesthetic Start: End: apply 1 dose transdermal route once daily, then apply 1 dose transdermal route every twelve hours lidocaine (LIDODERM) 5 % Indications: Chronic pain syndrome , Chronic left hip pain Place 1 patch on the skin daily. Remove & Discard patch within 12 hours 30 patch 2 01/19/2024 Active lumateperone 42 mg oral capsule (6 sources) Start: take 1 capsule by mouth [...] 8 gram, Refill(s): 0, 0, Maintenance, TYRA, Cook Islander, Print Requisition 07/17/2024 Active ARIPiprazole 10 mg [...] (REVIA) 50 mg tablet Indications: Mood disorder (CMS-HCC) Take 1 tablet (50 mg total) by [...] inflammations, bilateral] Onset: 5 08-12-2024 Chronic Lymphadenitis (8 sources) Inguinal lymphadenopathy; Translations: [Localized enlarged lymph [...] not specified as traumatic] 10-24-2024 Episodic Other gastrointestinal disorders (3 sources) Drug-induced [...] pain (acute) (chronic)] Onset: 4 Chronic Other nervous system disorders (1 source) Other chronic pain; Translations: [Other chronic pain] Onset: 4 Chronic Other non-traumatic joint disorders [...] status; 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 Residual codes; unclassified (2 [...] Problem Onset: 5 01-10-2025 Unclassified (1 source) right groin lymph node lymphocyte Onset: 5 Unclassified (1 source) New Patient Onset: 5 Unclassified (1 source) Post-op Onset: 5 Unclassified (1 source) Eye Exam Onset: 5 Unclassified (1 source) medication , controlled Onset: 5 Past or Other Problems Problem [...] aftercare (20 sources) Drug therapy finding; Translations: [buttermaker (current) use of opiate analgesic] Onset: 4 08-11-2023 Episodic Other connective tissue disease (2 sources) Spasm; Translations: [Other muscle spasm] 10-19-2023 Episodic Other connective tissue disease (1 source) Unspecified rotator cuff tear or rupture of right shoulder, not specified as traumatic; Translations: [Unspecified rotator cuff tear or rupture of right shoulder, not specified as traumatic] Onset: 5 Episodic Other hematologic conditions (20 sources) H/O: blood disorder; Translations: [Personal history of diseases of the blood and blood-forming organs and certain disorders involving the immune mechanism] Onset: 7 11-18-2016 Episodic Other infections; including parasitic (1 source) Toxoplasmosis, unspecified; Translations: [Toxoplasmosis, unspecified] Onset: 5 Episodic Other non-traumatic joint disorders (5 sources) Hip pain; Translations: [Pain in left hip] 10-19-2023 Episodic Phlebitis; thrombophlebitis and thromboembolism (20 sources) [...] sensations and perceptions] Onset: 4 10-19-2023 Episodic Septicemia (except in labor) (16 sources) Sepsis; Translations: [Sepsis, unspecified organism] Onset: 9 Resolved: 9 07-22-2018 Episodic Spondylosis; intervertebral disc disorders; other back problems (20 sources) Chronic back pain ; Translations: [Dorsalgia, unspecified] Onset: 7 02-13-2017 Episodic Unclassified (20 sources) Onset: 4 Resolved: 0510-19-2023 Unclassified (1 source) Drug-induced erectile dysfunction 07-25-2024 Unclassified (1 source) Preprocedural examination done 01-12-2025 Results Test Name Value Interpretation Reference Range Facility ECG 12 leadon 01-12-2025 TRACEMASTERVUE [facility] IR BIOPSY LYMPH NODEon 12-22 IR BIOPSY [...] Domingo MD on 12/22/2024 2:35 PM Normal [facility] PET CT SKULL TO THIGHon 11-14 PET [...] the sigmoi (more content not included)... Normal [facility] CNPNon 09-14-2024 CNPN Telephone (HEMASA) JOSELYN CARNES ([id number]) 1980 M Date Time Provider Department 09/14/24 RICH HILL During your visit today, we recorded the following information about you: Cassie Bledsoe 09/14/2024 2:24 PM Signed Records faxed to [facility] in [place]. [phone]. Allergies As of Date: 09/14/2024 Noted Allergy [...] Dr. Ceballos in the cancer center at [facility] discontinued all of his medication RKrishna RMA Problem List As Of Date 09/14/2024 Noted [...] Encounter Status:Closed by CASSIE BLEDSOE on 09/14/24 [facility] Panel Informationon 08-12 [facility] CNPZulema 02-16-2024 CNPN Telephone (HEMASA) DEYVIJOSELYN Mitchell ([id number]) 1980 M Date Time Provider Department 02/16/24 [...] (HCC) [C81.08] Order(s):LACTATE DEHYDROGENASE [SQLD6] Order #: [id number] FUTURE COMPLETE BLOOD COUNT AND DIFFERENTIAL [SQCBCDIF] Order #: [id number] FUTURE COMPREHENSIVE METABOLIC PANEL [SQCMP] Order #: [id number] FUTURE Prescriptions as of 02/18/2024 - gabapentin [...] Dr. Ceballos in the cancer center at [facility] discontinued all of his medication Duglas A [...] Status:Closed by JOVITA RAYGOZA on 02/18/24 Normal [facility] Flow cytometry specialist re view Angel (Unsp spec) [Interp]on 02-02-2024 FLOW CYTOMETRY TISSUE/FLUID, NON CSF/NON BAL SEE SEPARATE REPORT, REVIEWED BY PATHOLOGIST Normal [facility] Comment on above: Performed By: #### 6 [id number] #### [facility] ([id number]) [address] [place] [address] [address] [place] [address] Surgical Pathologyon 024 Surgical Pathology Normal [facility] Comment on above: Result Comment: [facility] [address] [place] [address] Surgical Pathology Consultation Patient Name:JOSELYN CARNES:1980 (Age: 43)Gender:MTaken:4Reported:4Physician(s):Nitin Burr MD ([phone])Copy To: Rec. #:[id number]: #[id number] Final Pathologic Diagnosis 1. Right tonsil, tonsillectomy: [...] CD5, CD7, CD10, CD19, CD20, CD23, CD45, Keo, and Lambda. Immunophenotyping Comment: Immunophenotyping has been used in this diagnostic evaluation. This test was developed and its performance characteristics determined by the [facility] Department. It has not been [...] Out Anshu Dickerson MD Interpretation [place] [address], License number: [id number]. 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 Gross Description 1. Received fresh labeled CARNES, right tonsil is a pink-reis intact tonsil, 1.8 x 1.0 x 0.6 cm. The lymph node is sectioned to reveal pink-reis, smooth cut surfaces. A member service representative portion is submitted in RPMI media for flow cytometric studies, two H&E touch preps and two Giemsa touch preps are prepared. The remainder of the tissue is submitted in cassettes A-B (cassette B is submitted following B+ fixation). (2,ns,[id number], m1) GK 2. Received fresh labeled DEYVI, left tonsil is a pink-reis portion of tonsillar tissue, 1.2 x 0.5 x 0.2 cm. The lymph node is sectioned to reveal pink-reis, smooth cut surfaces. A member service representative portion is submitted in RPMI media for flow cytometric studies, two H&E touch preps and two Giemsa touch preps are prepared. The remainder of the tissue is submitted in cassettes A-B (cassette B is submitted following B+ fixation). (2,ns,[id number], m1) GK 3. Received fresh labeled DEYVI, adenoid is a reis soft tissue bit, 0.4 cm. A member service representative portion is submitted in RPMI media for flow cytometric studies, two H&E touch preps and two Giemsa touch preps are prepared. The remainder of the tissue is submitted in cassette A. (1,ns,[id number], m1) GK Please note that the three samples are combined into a single RPMI media for flow cytometric studies. /02/02/2024WAK Specimen(s) Received 1: Right tonsil 2: Left tonsil 3: Adenoids Fee Codes(s): 1; 76548, 58313 2; 02520, 19549 3; 67097, 01957, 18473 ECG 12 [facility] 02-01-2024 [facility] 01-25-2024 [facility] Telephone ([facility]) JOSELYN CARNES ([id number]) 1980 M Date Time Provider Department 01/25/24 MARIALUISA PORTILLO [facility] During your visit today, we recorded the following information about you: Marialuisa Portillo RN 01/28/2024 2:34 PM Addendum Prior Authorization Documentation Approved Prior authorization requested for: MEDICATION Butran 5 mcg TD patch Submitted via phone call to [facility] PA department. Spoke Annemarie in PA department. 01/27-Spoke with Bonnie at [facility]. Medication approved and she will call the pharmacy to update them Insurance Company Name: [employer]. Pharmacy Name: [facility] and Authorization approval [place] # [id number] Dates of Approval: from 01/25/2024 to 04/23/2025 [...] Dr. Ceballos in the cancer center at [facility] discontinued all of his medication Duglas RMA Problem List As Of Date 01/25/2024 Noted [...] Encounter Status:Closed by MARIALUISA PORTILLO on 01/25/24 [facility] CNOVon 01-22-2024 CNOV Office Visit ([facility] ) JOSELYN CARNES ([id number]) 1980 M Date Time Provider Department 01/22/24 3:00 PM [facility]EL[facility] During your visit today, we recorded the following information about you: Temperature Pulse Respiration Blood pressure 97.1 degrees 99/minute 16/minute 131/91 Weight Height 102.2 kg 1.854 m Simran Nelson, AIRPLANE PILOT SUPERVISOR.LONGSHORE EQUIPMENT OPERATOR 01/25/2024 1:01 PM Addendum PALLIATIVE MEDICINE PROGRESS [...] appetite and weight are stable Modified ESAS ([place] Symptom Assessment Scale) Information Provided By: Patient [...] was identified. 01/22/2024 by Simran Nelson NP, AIRPLANE PILOT SUPERVISOR.LONGSHORE EQUIPMENT OPERATOR Assessment AND Plan (Z51.5) (more content not included)... Normal [facility] CNPNon 01-22-2024 CNPN Telephone ([facility]) JOSELYN CARNES ([id number]) 1980 M Date Time Provider Department 01/22/24 TEETEE COOK [facility] During your visit today, we recorded the following information about you: Teetee Cook [facility] 01/26/2024 9:49 AM Signed Ambulatory Pharmacy Prior Authorization Note Provider Intervention Required?: No- Pharmacy completed on your behalf. Rx Plan: [employer] [facility]: Buprenorphine patches Cover My Meds Ly: [id number] Determination: Denied PA Denied because: Step therapy requirement Prior Authorization/Case #: [id number] Prior Authorization Expiration: na Time to PA Submission in CMM: 15 min Time to PA Determination in CMM: 1 day Additional Information: must try Tramadol ER For questions relating to this submission, please contact [facility] at [phone] Martina Stephenson, [facility] 01/25/2024 11:32 AM Signed Insurance DENIED butrans patches - he must have a failure, contraindication or intolerance to Tramadol ER. Allie - please advise if you will be completing an appeal. Thank you, Martina Stephenson, [facility] Simran Nelson APRN.[facility] 01/25/2024 12:59 PM Signed Yes we will [...] Fully Assessed Reason for Visit: Medication Authorization [8519] Cmt: Buprenorphine patches Prescriptions as of 01/26/2024 [...] Dr. Ceballos in the cancer center at [facility] discontinued all of his medication Duglas A Problem List As Of Date 01/22/2024 [...] Status:Closed by TEETEE COOK on 01/26/24 Normal [facility] PAIN PANEL, UR QUANTon 01-21 1-Mttpbeazdc-0,5-Dimethy l-3,3-Diphenylpyrrolidin e (EDDP) Confirm (U) [Mass/Vol] <6 Normal <6 [facility] Comment on above: Order Comment: Speci men Type: URINE SPECIMENOrdering Facility: [facility] Address: [address] [place] [address] Result Comment: EDDP is a metabolite of methadone. Performed By: #### L [id number] ####[facility] LABIA [id number] [place] [address] [place] 6-Monoacetylmorphine (6-KEYLA) (U) [Mass/Vol] <5 Normal <5 [facility] Comment on above: Order Comment: Speci men Type: URINE SPECIMENOrdering Facility: [facility] Address: [address] [place] [address] Result Comment: 6-MA M (6-monoacetylmorphine, also known as 6-acetylmorphine) is a unique metabolite of heroin. Presence of 6-KEYLA indicates use of heroin. 6-KEYLA is further metabolized to morphine and absence of 6-KEYLA does not rule out the use of heroin. Performed By: #### L [id number] ####[facility] LABCLIA [id number] [place] [address] [place] Amphetamine Confirm (U) [Mass/Vol] <5 Normal <5 [facility] Comment on above: Order Comment: Speci men Type: URINE SPECIMENOrdering Facility: [facility] Address: [address] [place] [address] Performed By: #### L [id number] ####[facility] LABCLIA [id number] [place] [address] [place] Benzoylecgonine Confirm (U) [Mass/Vol] <24 Normal <24 [facility] Comment on above: Order Comment: Speci men Type: URINE SPECIMENOrdering Facility: [facility] Address: [address] [place] [address] Result Comment: Stas oylecgonine is a metabolite of cocaine. Performed By: #### L [id number] ####[facility] LABIA [id number] [place] [address] [place] Buprenorphine (U) [Mass/Vol] <20 Normal <20 [facility] Comment on above: Order Comment: Speci men Type: URINE SPECIMENOrdering Facility: [facility] Address: [address] [place] [address] Performed By: #### L [id number] ####[facility] [id number] [place] [address] [place] Cannabinoids Confirm (U) [Mass/Vol] <16 Normal <16 [facility] Comment on above: Order Comment: Speci men Type: URINE SPECIMENOrdering Facility: [facility] Address: [address] [place] [address] Result Comment: Tetr ahydrocannabinol carboxylic acid (THCA) is a metabolite of vgluy-0-qqcbhkbzyvqieyqbgarw which is the main active component of marijuana. Performed By: #### L [id number] ####[facility] LABIA [id number] [place] [address] [place] Codeine Confirm (U) [Mass/Vol] <11 Normal <11 [facility] Comment on above: Order Comment: Speci men Type: URINE SPECIMENOrdering Facility: [facility] Address: [address] [place] [address] Performed By: #### L [id number] ####[facility] [id number] [place] Dihydrocodeine Confirm (U) [Mass/Vol] <5 Normal <5 [facility] Comment on above: Order Comment: Speci men Type: URINE SPECIMENOrdering Facility: [facility] Address: [address] [place] [address] Performed By: #### L [id number] ####[facility] LABIA [id number] [place] [address] [place] fentaNYL Confirm (U) [Mass/Vol] <6 Normal <6 [facility] Comment on above: Order Comment: Speci men Type: URINE SPECIMENOrdering Facility: [facility] Address: [address] [place] [address] Performed By: #### L [id number] ####[facility] [id number] [address] [place] HYDROcodone Confirm (U) [Mass/Vol] <8 Normal <8 [facility] Comment on above: Order Comment: Speci men Type: URINE SPECIMENOrdering Facility: [facility] Address: [address] [place] [address] Result Comment: Hydr ocodone is a metabolite of dihydrocodeine. Performed By: #### L [id number] ####[facility] LABIA [id number] [place] [address] [place] HYDROmorphone Confirm (U) [Mass/Vol] <5 Normal <5 [facility] Comment on above: Order Comment: Speci men Type: URINE SPECIMENOrdering Facility: [facility] Address: [address] [place] [address] Result Comment: Hydr omorphone is a metabolite of hydrocodone. Performed By: #### L [id number] ####[facility] LABIA [id number] [place] [address] [place] Methadone Confirm (U) [Mass/Vol] <16 Normal <16 [facility] Comment on above: Order Comment: Speci men Type: URINE SPECIMENOrdering Facility: [facility] Address: [address] [place] [address] Performed By: #### L [id number] ####[facility] [id number] [place] [address] [place] Methamphetamine Confirm (U) [Mass/Vol] <8 Normal <8 [facility] Comment on above: Order Comment: Speci men Type: URINE SPECIMENOrdering Facility: [facility] Address: [address] [place] [address] Performed By: #### L [id number] ####[facility] [id number] [place] [address] [place] Morphine Confirm (U) [Mass/Vol] <10 Normal <10 [facility] Comment on above: Order Comment: Speci men Type: URINE SPECIMENOrdering Facility: [facility] Address: [address] [place] [address] Result Comment: Morp suzette is a metabolite of codeine and heroin. Performed By: #### L [id number] ####[facility] [id number] [address] [place] Norbuprenorphine (U) [Mass/Vol] <20 Normal <20 [facility] Comment on above: Order Comment: Speci men Type: URINE SPECIMENOrdering Facility: [facility] Address: [address] [place] [address] Result Comment: Norb uprenorphine is the primary active metabolite of buprenorphine. Performed By: #### L [id number] ####[facility] [id number] [address] [place] Norfentanyl Confirm (U) [Mass/Vol] <6 Normal <6 [facility] Comment on above: Order Comment: Speci men Type: URINE SPECIMENOrdering Facility: [facility] Address: [address] [place] [address] Result Comment: Norf entanyl is a metabolite of fentanyl. Performed By: #### L [id number] ####[facility] LABIA [id number] [place] [address] [place] Nortramadol (U) [Mass/Vol] <20 Normal <20 [facility] Comment on above: Order Comment: Speci men Type: URINE SPECIMENOrdering Facility: [facility] Address: [address] [place] [address] Result Comment: Desm ethyltramadol is a metabolite of tramadol. Performed By: #### L [id number] ####[facility] LABIA [id number] [place] [address] [place] NOTE,UR PAIN LOMAX Normal [facility] Comment on above: Order Comment: Speci men Type: URINE SPECIMENOrdering Facility: [facility] Address: [address] [place] [address] Result Comment: This test is for medical use only. This test was developed and its performance characteristics determined by [facility]'s [facility] Pathology [facility] Laboratory [facility] [place] (-[facility]). It has not been cleared or approved by the FDA. -[facility] is regulated under CLIA as qualified to perform high-complexity testing. This test is used for clinical purposes. It should not be regarded as investigational or for research. Performed By: #### L [id number] ####[facility] LABIA [id number] [place] [address] [place] oxyCODONE Confirm (U) [Mass/Vol] <10 Normal <10 [facility] Comment on above: Order Comment: Speci men Type: URINE SPECIMENOrdering Facility: [facility] Address: [address] [place] [address] Performed By: #### L [id number] ####[facility] LABIA [id number] [place] [address] [place] oxyMORphone Confirm (U) [Mass/Vol] <5 Normal <5 [facility] Comment on above: Order Comment: Speci men Type: URINE SPECIMENOrdering Facility: [facility] Address: [address] [place] [address] Result Comment: Oxym orphone is a metabolite of oxycodone. Performed By: #### L [id number] ####[facility] LABIA [id number] [place] [address] [place] traMADol Confirm (U) [Mass/Vol] <25 Normal <25 [facility] Comment on above: Order Comment: Speci men Type: URINE SPECIMENOrdering Facility: [facility] Address: [address] [place] [address] Performed By: #### L [id number] ####[facility] LABIA [id number] [place] [address] [place] SPECIMEN VALIDITY, URINEon 0 01-22-2024 CHROMATE,URINE <10 Normal <50 [facility] Comment on above: Order Comment: Speci men Type: URINE SPECIMENOrdering Facility: [facility] Address: [address] [place] [address] Performed By: #### L [id number] ####[facility] LABIA [id number] [place] [address] [place] CREATININE,URINE 54.0 mg/dL Normal 20.0-300.0 [facility] Comment on above: Order Comment: Speci men Type: URINE SPECIMENOrdering Facility: [facility] Address: [address] [place] [address] Performed By: #### L [id number] ####[facility] LABIA [id number] [place] [address] [place] NITRITES,URINE <50 Normal <500 [facility] Comment on above: Order Comment: Speci men Type: URINE SPECIMENOrdering Facility: [facility] Address: [address] [place] [address] Performed By: #### L [id number] ####[facility] LABCLIA [id number] [place] [address] [place] OXIDANTS,URINE <38 Normal <200 [facility] Comment on above: Order Comment: Speci men Type: URINE SPECIMENOrdering Facility: [facility] Address: [address] [place] [address] Performed By: #### L [id number] ####[facility] LABCLIA [id number] [place] [address] [place] pH (U) 5.8 [pH] Normal 4.5-8.0 [facility] Comment on above: Order Comment: Speci men Type: URINE SPECIMENOrdering Facility: [facility] Address: [address] [place] [address] Performed By: #### L [id number] ####[facility] LABIA [id number] [place] [address] [place] SPEC GRAVITY,UR 1.009 Normal 1.003-1.03 5 [facility] Comment on above: Order Comment: Speci men Type: URINE SPECIMENOrdering Facility: [facility] Address: [address] [place] [address] Performed By: #### L [id number] ####[facility] LABCLIA [id number] [place] [address] [place] SPECIMEN VALIDITY QUALITY Specimen quality results within acceptable limits Normal [facility] Comment on above: Order Comment: Speci men Type: URINE SPECIMENOrdering Facility: [facility] Address: [address] [place] [address] Performed By: #### L [id number] ####[facility] LABCLIA [id number] [place] [address] [place] TOXICOLOGY SCREEN, ROUTINE U RINEon 01-22-2024 Amphetamines Confirm (U) [Mass/Vol] Negative Normal Negative [facility] Comment on above: Order Comment: Speci men Type: URINE SPECIMENOrdering Facility: [facility] Address: [address] [place] [address] Result Comment: Cuto ff threshold at 1000 ng/mL. Performed By: #### U TOX2 ####[facility] LABCLIA [id number] [place] [address] [place] BARBITURATES, URINE Negative Normal Negative [facility] Comment on above: Order Comment: Speci men Type: URINE SPECIMENOrdering Facility: [facility] Address: [address] [place] [address] Result Comment: Cuto ff threshold at 200 ng/mL. Performed By: #### U TOX2 ####[facility] LABCLIA [id number] [place] [address] [place] BENZODIAZEPINES, UR Negative Normal Negative [facility] Comment on above: Order Comment: Speci men Type: URINE SPECIMENOrdering Facility: [facility] Address: [address] [place] [address] Result Comment: Cuto ff threshold at 200 ng/mL. Performed By: #### U TOX2 ####[facility] LABCLIA [id number] [place] [address] [place] Cannabinoids Screen Ql (U) Negative Normal Negative [facility] Comment on above: Order Comment: Speci men Type: URINE SPECIMENOrdering Facility: [facility] Address: [address] [place] [address] Result Comment: Cuto ff threshold at 50 ng/mL. Performed By: #### U TOX2 ####[facility] LABCLIA [id number] [place] [address] [place] Cocaine Ql (U) Negative Normal Negative [facility] Comment on above: Order Comment: Speci men Type: URINE SPECIMENOrdering Facility: [facility] Address: [address] [place] [address] Result Comment: Cuto ff threshold at 300 ng/mL. Performed By: #### U TOX2 ####[facility] LABCLIA [id number] [place] [address] [place] Ethanol (U) [Mass/Vol] <11 Normal <11 [facility] Comment on above: Order Comment: Speci men Type: URINE SPECIMENOrdering Facility: [facility] Address: [address] [place] [address] Performed By: #### U TOX2 ####[facility] LABCLIA [id number] [place] [address] [place] Opiates Screen Ql (U) Negative Normal Negative [facility] Comment on above: Order Comment: Speci men Type: URINE SPECIMENOrdering Facility: [facility] Address: [address] [place] [address] Result Comment: Cuto ff threshold at 300 ng/mL. Performed By: #### U TOX2 ####[facility] LABIA [id number] [place] [address] [place] oxyCODONE cutoff Screen (U) [Mass/Vol] Negative Normal Negative [facility] Comment on above: Order Comment: Speci men Type: URINE SPECIMENOrdering Facility: [facility] Address: [address] [place] [address] Result Comment: Cuto ff threshold at 100 ng/mL. Performed By: #### U TOX2 ####[facility] LABCLIA [id number] [place] [address] [place] Phencyclidine Ql (U) Negative Normal Negative [facility] Comment on above: Order Comment: Speci men Type: URINE SPECIMENOrdering Facility: [facility] Address: [address] [place] [address] Result Comment: Cuto ff threshold at 25 ng/mL. Performed By: #### U TOX2 ####[facility] LABCLIA [id number] [place] [address] [place] PT Skull base to mid-thighOr dered By: Clarisse Nixon on 01-18-2024 [facility] Radiology Study observation (narrative) [facility] PET+CT Guidance for localiza tion of [...] any questions regarding this interpretation, please call [phone]. If you are unable to reach us at the number above, please feel free to contact [facility] [phone]. DIVISION OF RADIOLOGY * * *Final Report* [...] * Radiopharmaceutical Activity: 14.4 mCi * Radiopharmaceutical: I00-Vxmlrinwsiproheaq e (FDG) * All reported standardized uptake values represent maximum SUV (SUVmax) per body weight, unless otherwise specified. COMPARISON: [facility] PET/CT 08/12/2023 CORRELATION: No relevant imaging available RESULT: REFERENCES: SUV reference values: * Blood pool (descending aorta) activity: SUVmax 2.2 * Background liver activity: SUVmax 2.7 [employer] [place] (topogram) images: No additional findings. Notes and [...] No abnormal uptake. DIVISION OF RADIOLOGY Provider, [facility] - 01/12/2024 * * *Final Report* * [...] * Radiopharmaceutical Activity: 14.4 mCi * Radiopharmaceutical: B70-Zohgpqpuyzjbkkpdx e (FDG) * All reported standardized uptake values represent maximum SUV (SUVmax) per body weight, unless otherwise specified. COMPARISON: [facility] PET/CT 08/12/2023 CORRELATION: No relevant imaging available RESULT: REFERENCES: SUV reference values: * Blood pool (descending aorta) activity: SUVmax 2.2 * Background liver activity: SUVmax 2.7 [employer] [place] (topogram) images: No additional findings. Notes and [...] be related t (more content not included)... [facility] PET+CT Guidance for localiza tion of tumor of Skull base to mid-thigh-- W 18F-FDG IVOrdered By: Ccf Provider on 01-12-2024 [facility] CBC W Auto Differential pane l (Bld)on 01-04-2024 Basophils (Bld) [#/Vol] 0.03 10*3/uL [facility] Basophils/100 WBC (Bld) 0.5 % [facility] Differential cell count method Nom (Bld) Auto [facility] Eosinophils (Bld) [#/Vol] 0.21 10*3/uL [facility] Eosinophils/100 WBC (Bld) 3.2 % [facility] Erythrocyte distribution width (RBC) [Ratio] 12.8 % 11.5 - 15.0 % [facility] Hematocrit (Bld) [Volume fraction] 44.2 % 39.0 - 51.0 % [facility] Hemoglobin (d) [Mass/Vol] 14.8 g/dL 13.0 - 17.0 g/dL [facility] Immature granulocytes (Bld) [#/Vol] [facility] Immature granulocytes/100 WBC (Bld) 0.2 % [facility] Lymphocytes (Bld) [#/Vol] 2.23 10*3/uL [facility] Lymphocytes/100 WBC (Bld) 33.9 % [facility] MCH (RBC) [Entitic mass] 30.3 pg 26. 0 - 34.0 pg [facility] MCHC (RBC) [Mass/Vol] 33.5 g/dL 30.5 - 36.0 g/dL [facility] MCV (RBC) [Entitic vol] 90.4 fL 80.0 - 100.0 fL [facility] Monocytes (Bld) [#/Vol] 0.68 10*3/uL [facility] Monocytes/100 WBC (Bld) 10.4 % [facility] Neutrophils (Bld) [#/Vol] 3.41 10*3/uL [facility] Neutrophils/100 WBC (Bld) 51.8 % [facility] Nucleated RBC (Bld) [#/Vol] [facility] Nucleated RBC/100 WBC (Bld) [Ratio] 0.0 % /100 WBC [facility] Platelet mean volume (Bld) [Entitic vol] 9.3 fL 9.0 - 12.7 fL [facility] Platelets (Bld) [#/Vol] 188 10*3/uL [facility] RBC (Bld) [#/Vol] 4.89 10*6/uL 4.20 - 6.00 m/uL [facility] WBC (Bld) [#/Vol] 6.57 10*3/uL [facility] Basophils (Bld) [#/Vol] 0.03 10*3/uL Normal <0.11 [facility] Comment on above: Order Comment: Speci men Type: BLOOD SPECIMENOrdering Facility: [facility] Address: [address] [place] [address] Performed By: #### 5 7021-8 ####[facility] LABCLIA [id number] [place] [address] Basophils/100 WBC (Bld) 0.5 % Normal [facility] Comment on above: Order Comment: Speci men Type: BLOOD SPECIMENOrdering Facility: [facility] Address: [address] [place] [address] Performed By: #### 5 7021-8 ####[facility] LABCLIA [id number] [place] [address] Differential cell count method Nom (Bld) Auto Normal [facility] Comment on above: Order Comment: Speci men Type: BLOOD SPECIMENOrdering Facility: [facility] Address: [address] [place] [address] Performed By: #### 5 7021-8 ####[facility] LABCLIA [id number] [place] [address] Eosinophils (Bld) [#/Vol] 0.21 10*3/uL Normal <0.46 [facility] Comment on above: Order Comment: Speci men Type: BLOOD SPECIMENOrdering Facility: [facility] Address: [address] [place] [address] Performed By: #### 5 7021-8 ####[facility] LABCLIA [id number] [place] [address] Eosinophils/100 WBC (Bld) 3.2 % Normal [facility] Comment on above: Order Comment: Speci men Type: BLOOD SPECIMENOrdering Facility: [facility] Address: [address] [place] [address] Performed By: #### 5 7021-8 ####[facility] LABCLIA [id number] [place] [address] Erythrocyte distribution width (RBC) [Ratio] 12.8 % Normal 11.5-15.0 [facility] Comment on above: Order Comment: Speci men Type: BLOOD SPECIMENOrdering Facility: [facility] Address: [address] [place] [address] Performed By: #### 5 7021-8 ####[facility] LABCLIA [id number] [place] [address] Hematocrit (Bld) [Volume fraction] 44.2 % Normal 39.0-51.0 [facility] Comment on above: Order Comment: Speci men Type: BLOOD SPECIMENOrdering Facility: [facility] Address: [address] [place] [address] Performed By: #### 5 7021-8 ####[facility] LABCLIA [id number] [place] [address] Hemoglobin (Bld) [Mass/Vol] 14.8 g/dL Normal 13.0-17.0 [facility] Comment on above: Order Comment: Speci men Type: BLOOD SPECIMENOrdering Facility: [facility] Address: [address] [place] [address] Performed By: #### 5 7021-8 ####[facility] LABCLIA [id number] [place] [address] Immature granulocytes (Bld) [#/Vol] 10*3/uL Normal <0.10 [facility] Comment on above: Order Comment: Speci men Type: BLOOD SPECIMENOrdering Facility: [facility] Address: [address] [place] [address] Performed By: #### 5 7021-8 ####[facility] LABCLIA [id number] [place] [address] Immature granulocytes/100 WBC (Bld) 0.2 % Normal [facility] Comment on above: Order Comment: Speci men Type: BLOOD SPECIMENOrdering Facility: [facility] Address: [address] [place] [address] Performed By: #### 5 7021-8 ####[facility] LABCLIA [id number] [place] [address] Lymphocytes (Bld) [#/Vol] 2.23 10*3/uL Normal 1.00-4.00 [facility] Comment on above: Order Comment: Speci men Type: BLOOD SPECIMENOrdering Facility: [facility] Address: [address] [place] [address] Performed By: #### 5 7021-8 ####[facility] LABCLIA [id number] [place] [address] Lymphocytes/100 WBC (Bld) 33.9 % Normal [facility] Comment on above: Order Comment: Speci men Type: BLOOD SPECIMENOrdering Facility: [facility] Address: [address] [place] [address] Performed By: #### 5 7021-8 ####[facility] LABCLIA [id number] [place] [address] MCH (RBC) [Entitic mass] 30.3 pg Normal 26.0-34.0 [facility] Comment on above: Order Comment: Speci men Type: BLOOD SPECIMENOrdering Facility: [facility] Address: [address] [place] [address] Performed By: #### 5 7021-8 ####[facility] LABIA [id number] [place] [address] MCHC (RBC) [Mass/Vol] 33.5 g/dL Normal 30.5-36.0 [facility] Comment on above: Order Comment: Speci men Type: BLOOD SPECIMENOrdering Facility: [facility] Address: [address] [place] [address] Performed By: #### 5 7021-8 ####[facility] LABCLIA [id number] [place] [address] MCV (RBC) [Entitic vol] 90.4 fL Normal 80.0-100.0 [facility] Comment on above: Order Comment: Speci men Type: BLOOD SPECIMENOrdering Facility: [facility] Address: [address] [place] [address] Performed By: #### 5 7021-8 ####[facility] LABCLIA [id number] [place] [address] Monocytes (Bld) [#/Vol] 0.68 10*3/uL Normal <0.87 [facility] Comment on above: Order Comment: Speci men Type: BLOOD SPECIMENOrdering Facility: [facility] Address: [address] [place] [address] Performed By: #### 5 7021-8 ####[facility] LABCLIA [id number] [place] [address] Monocytes/100 WBC (Bld) 10.4 % Normal [facility] Comment on above: Order Comment: Speci men Type: BLOOD SPECIMENOrdering Facility: [facility] Address: [address] [place] [address] Performed By: #### 5 7021-8 ####[facility] LABCLIA [id number] [place] [address] Neutrophils (Bld) [#/Vol] 3.41 10*3/uL Normal 1.45-7.50 [facility] Comment on above: Order Comment: Speci men Type: BLOOD SPECIMENOrdering Facility: [facility] Address: [address] [place] [address] Performed By: #### 5 7021-8 ####[facility] LABCLIA [id number] [place] [address] Neutrophils/100 WBC (Bld) 51.8 % Normal [facility] Comment on above: Order Comment: Speci men Type: BLOOD SPECIMENOrdering Facility: [facility] Address: [address] [place] [address] Performed By: #### 5 7021-8 ####[facility] LABCLIA [id number] [place] [address] Nucleated RBC (Bld) [#/Vol] 10*3/uL Normal <0.01 [facility] Comment on above: Order Comment: Speci men Type: BLOOD SPECIMENOrdering Facility: [facility] Address: [address] [place] [address] Performed By: #### 5 7021-8 ####[facility] LABCLIA [id number] [place] [address] Nucleated RBC/100 WBC (Bld) [Ratio] 0.0 /100 WBC Normal [facility] Comment on above: Order Comment: Speci men Type: BLOOD SPECIMENOrdering Facility: [facility] Address: [address] [place] [address] Performed By: #### 5 7021-8 ####[facility] LABCLIA [id number] [place] [address] Platelet mean volume (Bld) [Entitic vol] 9.3 fL Normal 9.0-12.7 [facility] Comment on above: Order Comment: Speci men Type: BLOOD SPECIMENOrdering Facility: [facility] Address: [address] [place] [address] Performed By: #### 5 7021-8 ####[facility] LABIA [id number] [place] [address] Platelets (Bld) [#/Vol] 188 10*3/uL Normal 150-400 [facility] Comment on above: Order Comment: Speci men Type: BLOOD SPECIMENOrdering Facility: [facility] Address: [address] [place] [address] Performed By: #### 5 7021-8 ####[facility] LABIA [id number] [place] [address] RBC (Bld) [#/Vol] 4.89 10*6/uL Normal 4.20-6.00 [facility] Comment on above: Order Comment: Speci men Type: BLOOD SPECIMENOrdering Facility: [facility] Address: [address] [place] [address] Performed By: #### 5 7021-8 ####[facility] LABIA [id number] [place] [address] WBC (Bld) [#/Vol] 6.57 10*3/uL Normal 3.70-11.00 [facility] Comment on above: Order Comment: Speci men Type: BLOOD SPECIMENOrdering Facility: [facility] Address: [address] [place] [address] Performed By: #### 5 7021-8 ####[facility] LABCLIA [id number] [place] [address] Comprehensive metabolic 2000 panelon 01-04-2024 Albumin [Mass/Vol] 4.8 g/dL 3.9 - 4.9 g/dL [facility] ALP [Catalytic activity/Vol] 103 U/L 38 - 113 U/L [facility] ALT [Catalytic activity/Vol] 53 U/L 10 - 54 U/L [facility] Anion gap [Moles/Vol] 10 mmol/L 8 - 15 mmol/L [facility] AST [Catalytic activity/Vol] 24 U/L 14 - 40 U/L [facility] Bilirubin [Mass/Vol] 0.3 mg/dL 0.2 - 1 .3 mg/dL [facility] Calcium [Mass/Vol] 10.0 mg/dL 8.5 - 10. 2 mg/dL [facility] Chloride [Moles/Vol] 103 mmol/L 98 - 10 7 mmol/L [facility] CO2 [Moles/Vol] 28 mmol/L 22 - 30 mmol/L [facility] Creatinine [Mass/Vol] 1.23 mg/dL High 0.73 - 1.22 mg/dL [facility] GFR/1.73 sq M.predicted among non-blacks MDRD (S/P/Bld) [Vol rate/Area] 74 mL/min/{1.73_m2} - PINF [facility] Comment on above: Estimated Glomerular Filtration [...] [Mass/Vol] 92 mg/dL 74 - 99 mg/dL [facility] Comment on above: The [place] Diab[employer] Association (ADA) provides guidance for [...] Standards of Medical Care in Diabetes 2016, [place] [employer]. Diabetes Care. 2016.39(Suppl 1). Interpretation and review of laboratory results Abnormal [facility] Potassium [Moles/Vol] 4.4 mmol/L 3.7 - 5.1 mmol/L [facility] Protein [Mass/Vol] 7.2 g/dL 6.3 - 8.0 g/dL [facility] Sodium [Moles/Vol] 141 mmol/L 136 - 144 mmol/L [facility] Urea nitrogen [Mass/Vol] 18 mg/dL 9 - 24 mg/dL [facility] Albumin [Mass/Vol] 4.8 g/dL Normal 3.9-4.9 [facility] Comment on above: Order Comment: Speci men Type: BLOOD SPECIMENOrdering Facility: [facility] Address: [address] [place] [address] Performed By: #### 2 4323-8, 0 ####[facility] LABCLIA [id number] [place] [address] ALP [Catalytic activity/Vol] 103 U/L Normal 38-113 [facility] Comment on above: Order Comment: Speci men Type: BLOOD SPECIMENOrdering Facility: [facility] Address: [address] [place] [address] Performed By: #### 2 4323-8, 2531-0 ####[facility] LABCLIA [id number] [place] [address] ALT [Catalytic activity/Vol] 53 U/L Normal 10-54 [facility] Comment on above: Order Comment: Speci men Type: BLOOD SPECIMENOrdering Facility: [facility] Address: [address] [place] [address] Performed By: #### 2 4323-8, 2531-0 ####[facility] LABCLIA [id number] [place] [address] Anion gap [Moles/Vol] 10 mmol/L Normal 8-15 [facility] Comment on above: Order Comment: Speci men Type: BLOOD SPECIMENOrdering Facility: [facility] Address: [address] [place] [address] Performed By: #### 2 4328, 2531-0 ####[facility] LABCLIA [id number] [place] [address] AST [Catalytic activity/Vol] 24 U/L Normal 14-40 [facility] Comment on above: Order Comment: Speci men Type: BLOOD SPECIMENOrdering Facility: [facility] Address: [address] [place] [address] Performed By: #### 2 4328, 2531-0 ####[facility] LABCLIA [id number] [place] [address] Bilirubin [Mass/Vol] 0.3 mg/dL Normal 0.2-1.3 [facility] Comment on above: Order Comment: Speci men Type: BLOOD SPECIMENOrdering Facility: [facility] Address: [address] [place] [address] Performed By: #### 2 4328, 2531-0 ####[facility] LABCLIA [id number] [place] [address] Calcium [Mass/Vol] 10.0 mg/dL Normal 8.5-10.2 [facility] Comment on above: Order Comment: Speci men Type: BLOOD SPECIMENOrdering Facility: [facility] Address: [address] [place] [address] Performed By: #### 2 4323-8, 2531-0 ####[facility] LABCLIA [id number] [place] [address] Chloride [Moles/Vol] 103 mmol/L Normal 98-107 [facility] Comment on above: Order Comment: Speci men Type: BLOOD SPECIMENOrdering Facility: [facility] Address: [address] [place], [place] [address] Performed By: #### 2 4323-8, 2531-0 ####[facility] LABCLIA [id number] [place] [address] CO2 [Moles/Vol] 28 mmol/L Normal 22-30 [facility] Comment on above: Order Comment: Speci men Type: BLOOD SPECIMENOrdering Facility: [facility] Address: [address] [place] [address] Performed By: #### 2 4323-8, 2531-0 ####[facility] LABCLIA [id number] [place] [address] Creatinine [Mass/Vol] 1.23 mg/dL High 0.73-1.22 [facility] Comment on above: Order Comment: Speci men Type: BLOOD SPECIMENOrdering Facility: [facility] Address: [address] [place] [address] Performed By: #### 2 4323-8, 2531-0 ####[facility] LABCLIA [id number] [place] [address] Creatinine and Glomerular filtration rate.predicted panel (S/P/Bld) 74 mL/min/1.73m??? Normal >=60 [facility] Comment on above: Order Comment: Speci men Type: BLOOD SPECIMENOrdering Facility: [facility] Address: [address] [place] [address] Result Comment: Kirsten mated Glomerular Filtration Rate [...] reflect actual GFR. Performed By: #### 2 4323-8, 0 ####[facility] LABCLIA [id number] [place] [address] Glucose [Mass/Vol] 92 mg/dL Normal 74-99 [facility] Comment on above: Order Comment: Speci men Type: BLOOD SPECIMENOrdering Facility: [facility] Address: [address] [place] [address] Result Comment: The [place] Diabetes Association (ADA) provides guidance for cutoff [...] Standards of Medical Care in Diabetes 2016, [place] [employer] Association. Diabetes Care. 2016.39(Suppl 1). Performed By: #### 2 43238, ####[facility] LABCLIA [id number] [place] [address] Potassium [Moles/Vol] 4.4 mmol/L Normal 3.7-5.1 [facility] Comment on above: Order Comment: Speci men Type: BLOOD SPECIMENOrdering Facility: [facility] Address: [address] [place] [address] Performed By: #### 2 4328, 0 ####[facility] LABIA [id number] [place] [address] Protein [Mass/Vol] 7.2 g/dL Normal 6.3-8.0 [facility] Comment on above: Order Comment: Speci men Type: BLOOD SPECIMENOrdering Facility: [facility] Address: [address] [place] [address] Performed By: #### 2 4328, 0 ####[facility] LABCLIA [id number] [place] [address] Sodium [Moles/Vol] 141 mmol/L Normal 136-144 [facility] Comment on above: Order Comment: Speci men Type: BLOOD SPECIMENOrdering Facility: [facility] Address: [address] [place] [address] Performed By: #### 2 4323-8, 0 ####[facility] LABCLIA [id number] [place] [address] Urea nitrogen [Mass/Vol] 18 mg/dL Normal 9-24 [facility] Comment on above: Order Comment: Speci men Type: BLOOD SPECIMENOrdering Facility: [facility] Address: [address] [place], [place] [address] Performed By: #### 2 4323-8, 0 ####[facility] LABCLIA [id number] [place] [address] GLUCOSE, BLOOD (POC)on 01-03 Glucose [Mass/Vol] 88 mg/dL 74 - 99 mg/dL [facility] Comment on above: Location:[facility], [address] , [place], [place], [address] The Accu-Chek Inform II glucose meter has [...] blood gas instrument) in the above situations. [facility] LACTATE DEHYDROGENASEOrdered By: Bina Aggarwal on 01-04-2024 LDH [Catalytic activity/Vol] 154 U/L 135 - 225 U/L [facility] LDH SerPl-cCncon 01-04-2024 LDH [Catalytic activity/Vol] 154 U/L Normal 135-225 [facility] Comment on above: Order Comment: Speci men Type: BLOOD SPECIMENOrdering Facility: [facility] Address: [place] [id number] Performed By: #### 2 4323-8, 2532-0 ####[facility] LABCLIA [id number] [place] [address] LDH [Catalytic activity/Vol] Ordered By: Bina Aggarwal on 01-04-2024 Interpretation and review of laboratory results Normal [facility] NM PET/CT SKULL-THIGH SUBQon 01-04-2024 NM PET/CT [...] * Radiopharmaceutical Activity: 14.4 mCi * Radiopharmaceutical: Z38-Hilvfjlhomtmqemvo e (FDG) * All reported standardized uptake values represent maximum SUV (SUVmax) per body weight, unless otherwise specified. COMPARISON: FDG PET/CT 08/12/2023 CORRELATION: No relevant imaging available RESULT: REFERENCES: SUV reference values: * Blood pool (descending aorta) activity: SUVmax 2.2 * Background liver activity: SUVmax 2.7 Inspector And Adjuster [place] (topogram) images: No additional findings. Notes and [...] and electroni (more content not included)... Normal [facility] PET+CT Guidance for localiza tion of tumor of Skull base to mid-thigh-- W 18F-FDG Iris 01-04-2024 Radiology Study observation (narrative) [facility] JOSELYN CARNES ([id number]) 1980 M Date Time Provider Department 12/21/23 RICH HILL [...] with pt. He is seeing ENT, in [place]: 02/04/24 @ 130 Address: [address] [place] [address] [place] Call placed to [phone], Pt seeing Dr Burr, ENT phone # provided [phone]. Will call after 1 pm to inform [...] already scheduled for f/u with you 02/19/24) Kasey Gandhi Cassie Tiffanie 01/13/2024 1:40 PM Signed Report faxed. Images being pushed to [email or web address]. Allergies As of Date: 12/21/2023 Noted Allergy [...] Dr. Ceballos in the cancer center at [facility] discontinued all of his medication Duglas A [...] contract exists (more content not included)... Normal [facility] CNPN Telephone (NCCAP) JOSELYN CARNES ([id number]) 1980 M Date Time Provider Department 12/21/23 [facility] NCCAP During your visit today, we recorded the following information about you: Vita Mota 12/21/2023 8:55 AM Signed Please refer to ENT in [place] / [facility]. The office phone number is [phone]. Address [address] in [place]. Sangeeta, Please fax records Sylvester, Please follow up on this appt. Thank you Cara Brown 12/21/2023 2:09 PM Signed Sangeeta: Information ready for you. Cara GandhiCassie Tiffanie 12/21/2023 2:34 PM Signed Records faxed to [facility] ENT. Cara Brown 12/31/2023 10:[address] [facility] ENT office spoke with Cassie. She states they have received this referral and their office has been extremely busy and asked if we could call patient and ask him to call their office. I tried to call patient but unable to reach and unable to leave message mail box not set up. CaraCarola Powell RN 12/31/2023 11:25 AM Signed Spoke with [...] Dr. Ceballos in the cancer center at [facility] discontinued all of his medication Duglas A [...] Encounter Status:Closed by VITA MOTA on 01/25/24 [facility] [place] CNOVSPon 12-18-2023 CNOVSP Visit (SP) Office ([facility]) JOSELYN CARNES ([id number]) 1980 M Date Time Provider Department 12/18/23 2:30 PM [facility] During your visit today, we recorded the following information about you: Temperature Pulse Respiration Blood pressure 97.8 degrees 67/minute 16/minute 125/79 Weight 96.1 kg Rich Hill MD 12/20/2023 6:23 PM Signed NAME: Joselyn Carnes [facility] NO.: [id number] DATE OF SERVICE: December 18, 2023 (Sandy) Some elements in this clinic note that are critical to medical decision making have been carefully reviewed and included from a prior clinic note dated: August 17, 2023 (Sandy) Referring Provider: Self Additional Clinicians involved in [...] lymph nod (more content not included)... [facility] Nurse Visit (PSYCA2) DEYVIJOSELYN Mitchell ([id number]) 1980 M Date Time Provider Department 12/09/23 GERALD SAPP PSYCA2 During your visit today, we recorded the following information about you: Gerald Sapp RN 12/09/2023 2:47 PM Signed Palliative Medicine Care Coordination NEW PATIENT NOTE Patient identified by name and date of . YES Spoke with: patient Nurse introduced self and role of Special Machine Stitcher in Palliative Medicine. Office contact sheet provided [...] treatment at a residential rehab facility in [facility], but not currently seeing a psychiatry provider [...] Date Reviewed: 09/11/2023 Reviewed by: Simran Nelson, DANA.LONGSHORE EQUIPMENT OPERATOR - Fully Assessed Primary Visit Diagnosis:Encounter for [...] Dr. Ceballos in the cancer center at [facility] discontinued all of his medication Duglas A [...] Encounter Status:Closed by GERALD SAPP on 12/09/23 [facility] [place] CNOVon 12-09-2023 CNOV Office Visit (PSYCA2 ) JOSELYN CARNES ([id number]) 1980 M Date Time Provider Department 12/09/23 10:00 AM TOBI PLATA PSYCA2 During your visit today, we recorded the following information about you: Temperature Pulse Respiration Blood pressure 98.3 degrees 84/minute 20/minute 131/82 Weight 98 kg Tobi Plata MD 12/09/2023 12:03 PM Signed [facility] Division of Psycho-Oncology Psychiatry Outpatient Visit- New Patient Encounter In-Person Visit Joselyn Carnes 1980 [id number] Visit date: 12/09/2023 . Visit # 1 Established care: 12/09/2023 Referral source: Tobi Plata PCP: No primary care provider on file. Oncologist: Rich Hill MD ASSESSMENT: Joselyn Paula Deyvi is a 43 year old male with PMH of Hodgkin's Lymphoma diagnosed in June 2015, s/p ASCT in Jan 2017, lost in follow up till 2018, then lost in follow up again till October 2022 for recurring neck and groin pain, with PET indicating recurrence, reported PPH of substance use disorder, who is referred to psycho-oncology service at [facility] by sil thao for Auditory Hallucinations, ADHD. Patient presented to [facility] psychiatry with concerns for auditory hallucination and [...] since he started living at residential place ([facility] [place]). He denies depressed mood, anxiety or current [...] options in the community. Patient met lymphoma rn social services Yair at the end of today's visit who will provide resources for community psychiatry. -Positive reinforcement on staying abstinent from cocaine and marijuana -Letter provided by RN to prove today's visit -I personally called [facility] rehab at [place] at [phone]. Automated voice message told me the facility is closed on Thursday. I did not get to speak with anyone and left and a voice message -Follow-up as needed. Of note this is not a proper referral to [facility] psychiatry as patient is not in active cancer treatment. 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 While every effort was made to correct voice recognition errors, please kindly be aware that some grammatical or spelling errors may o (more content not included)... Normal [facility] 12-03-2023 [facility] JOSELYN CARNES ([id number]) 1980 M Date Time Provider Department 12/03/23 [...] you please call and schedule. Thanks SANDRA MorinMary arevalo [facility] 12/04/2023 8:33 AM Signed Sent the information to Dilan Ball, then I will call the Patient to schedule. ABRAN WatsonMary arevalo [facility] 12/07/2023 8:07 AM Signed I called the Patient to give him, his appt date and time of: 12/10 1045 am : Dr. Islas But unfortunantly, he did not answer and does not have a voicemail set up. I will try calling the Patient again in a few hours. ABRAN WatsonMary arevalo [facility] 12/07/2023 1:20 PM Signed I spoke with [...] Date Reviewed: 09/11/2023 Reviewed by: Simran Nelson, DANA.LONGSHORE EQUIPMENT OPERATOR - Fully Assessed Prescriptions as of 12/08/2023 [...] Dr. Ceballos in the cancer center at [facility] discontinued all of his medication Duglas RMA Problem List As Of Date 12/03/2023 [...] Status:Closed by RACHEL BALL on 12/08/23 Normal [facility] DRUG SCREEN, URINEon 024 AMPHETAMINE/METHAMP Negative Normal NEG [facility] Comment on above: Result Comment: AMPH /METH screening cut off = 1000 ng/mL Performed By: #### D SANCHEZ #### [facility] ([id number]) [address] [place] [address] BARBITURATES Negative Normal NEG [facility] Comment on above: Result Comment: Marilyn iturates screening cut off value = 200 ng/mL Performed By: #### D SANCHEZ #### [facility] ([id number]) [address] [place] [address] BENZODIAZEPINES Negative Normal [facility] Comment on above: Result Comment: Stas odiazepines screening cut off value = 200 ng/mL Performed By: #### D SANCHEZ #### [facility] ([id number]) [address] [place] [address] CANNABINOIDS Negative Normal NEG [facility] Comment on above: Result Comment: Doyle abinoids/THC screening cut off value = 50 ng/mL Performed By: #### D SANCHEZ #### [facility] ([id number]) [address] [place] [address] COCAINE METABOLITE Negative Normal NEG [facility] Comment on above: Result Comment: Coca ine screening cut off value = 300 ng/mL Performed By: #### D SANCHEZ #### [facility] ([id number]) [address] [place] [address] ECSTASY Negative Normal NEG [facility] Comment on above: Result Comment: Ecst asy screening cut off value = 500 ng/mL This report is intended for use in clinical monitoring or management of patients. Performed By: #### D SANCHEZ #### [facility] ([id number]) [address] [place] [address] METHADONE Negative Normal NEG [facility] Comment on above: Result Comment: Meth adone screening cut off value = 300 ng/mL. Performed By: #### D SANCHEZ #### [facility] ([id number]) [address] [place] [address] OPIATES Negative Normal NEG [facility] Comment on above: Result Comment: Opia jethro screening cut off value = 300 ng/mL NOTE: This test is used for the detection of codeine, hydrocodone (>1000 ng/mL), morphine and hydromorphone (>900 ng/mL) in urine. Performed By: #### D SANCHEZ #### [facility] ([id number]) [address] [place] [address] OXYCODONE Negative Normal NEG [facility] Comment on above: Result Comment: Oxyc odone screening cut off value = 300 ng/mL NOTE: This test is used for the detection of oxycodone and oxymorphone in urine. Performed By: #### D SANCHEZ #### [facility] ([id number]) [address] [place] [address] PHENCYCLIDINE Negative Normal NEG [facility] Comment on above: Result Comment: Phen cyclidine screening cut off value = 25 ng/mL Performed By: #### D SANCHEZ #### [facility] ([id number]) [address] [place] [address] Drug Screen, Urineon 024 Amphetamines Screen method >1000 ng/mL Ql (U) Negative Negative^N [facility] Comment on above: AMPH/METH screening cut off = 1000 ng/mL Barbiturates Screen Ql (U) Negative Negative^N [facility] Comment on above: Barbiturates screeni ng cut off value = 200 ng/mL Benzodiazepines Ql (U) Negative Negat diana^N [facility] Comment on above: Benzodiazepines scre ening cut off value = 200 ng/mL Cocaine Ql (U) Negative Negative^N [facility] Comment on above: Cocaine screening cu t off value = 300 ng/mL Methadone Screen Ql (U) Negative Nega tive^N [facility] Comment on above: Methadone screening cut off value = 300 ng/mL. Methylenedioxymethamphet amine Screen Ql (U) Negative Negative^N [facility] Comment on above: Ecstasy screening cu t off value = 500 ng/mL This report is intended for use in clinical monitoring or management of patients. Opiates Screen Ql (U) Negative Negati ve^N [facility] Comment on above: Opiates screening cu t off value = 300 ng/mL NOTE: This test is used for the detection of codeine, hydrocodone (>1000 ng/mL), morphine and hydromorphone (>900 ng/mL) in urine. oxyCODONE Ql (U) Negative Negative^N [facility] Comment on above: Oxycodone screening cut off value = 300 ng/mL NOTE: This test is used for the detection of oxycodone and oxymorphone in urine. Phencyclidine Screen method >25 ng/mL Ql (U) Negative Negative^N [facility] Comment on above: Phencyclidine screen ing cut off value = 25 ng/mL Tetrahydrocannabinol Screen method >50 ng/mL Ql (U) Negative Negative^N [facility] Comment on above: Cannabinoids/THC scr eening cut off value = 50 ng/mL [facility] CNCOon 10-09-2023 CNCO Letter Text Normal [facility] CNOVon 10-09-2023 CNOV Office Visit (PMSYMC ) DEYVIJOSELYN ([id number]) 1980 M Date Time Provider Department 10/09/23 10:00 AM SIMRAN NELSON [facility] During your visit today, we recorded the following information about you: Simran Nelson APRN.HERACLIO 10/09/2023 12:44 PM Signed No Show Allergies [...] Date Reviewed: 09/11/2023 Reviewed by: Simran Nelson APRN.LONGSHORE EQUIPMENT OPERATOR - Fully Assessed Primary Visit Diagnosis:NO SHOW [...] Dr. Ceballos in the cancer center at [facility] discontinued all of his medication Duglas A Problem List As Of Date 10/09/2023 Noted [...] Encounter Status:Closed by SIMRAN NELSON on 10/09/23 [facility] [place] 09-29-2023 CNPN Telephone (PALMED) JOSELYN CARNES ([id number]) 1980 M Date Time Provider Department 09/29/23 [...] Date Reviewed: 09/11/2023 Reviewed by: Simran Nelson APRN.LONGSHORE EQUIPMENT OPERATOR - Fully Assessed Reason for Visit: Initial [...] Dr. Ceballos in the cancer center at [facility] discontinued all of his medication Duglas A Problem List As Of Date 09/29/2023 Noted [...] Status:Closed by KEVIN MONAHAN on 09/29/23 Normal [facility] HBV core Ab Ql (S)on 024 Interpretation and review of laboratory results Normal [facility] HBV surface Ab Ql (S)on 07-17 HBV surface Ab Qn (S) mIU/mL [facility] Comment on above: <8 mIU/mL: No serolo gical evidence of immunity to Hepatitis B Virus. >/= 8 to <12 mIU/mL: No serological evidence of immunity to Hepatitis B Virus. >/= 12 mIU/mL: Consistent with serological evidence of immunity to Hepatitis B Virus. [facility] HBV surface Ag Ql (S)on 07-17 Interpretation and review of laboratory results Normal [facility] HCV Ab Ql (S)on 08-13-2023 Interpretation and review of laboratory results Normal [facility] HEP B CORE AB TOTALon 2023 HBV core Ab Ql (S) Negative Negative [facility] Comment on above: No evidence of curre nt or past infection with Hepatitis B virus. Should recent infection be suspected, repeat testing may be considered 3-4 weeks after this draw. HEP B SURF ABon 08-13-2023 HBV surface Ab Ql (S) Negative [facility] Comment on above: No serological evide nce of immunity to Hepatitis B Virus. HEP B SURF AG SCRNon 024 HBV surface Ag Ql (S) Negative Negative [facility] HEPATITIS C ANTIBODY IA WITH CONFIRMATIONon 08-13-2023 HCV Ab Ql (S) Negative Negative [facility] Comment on above: The result suggests no evidence of active infection with Hepatitis C virus. Should recent infection be suspected, repeat testing may be considered 4-6 weeks after this draw. CBC W Auto Differential pane l (Bld)on 08-12-2023 Basophils (Bld) [#/Vol] [facility] Basophils/100 WBC (Bld) 0.4 % [facility] Differential cell count method Nom (Bld) Auto [facility] Eosinophils (Bld) [#/Vol] 0.10 10*3/uL [facility] Eosinophils/100 WBC (Bld) 2.1 % [facility] Erythrocyte distribution width (RBC) [Ratio] 12.6 % 11.5 - 15.0 % [facility] Hematocrit (Bld) [Volume fraction] 43.2 % 39.0 - 51.0 % [facility] Hemoglobin (Bld) [Mass/Vol] 14.8 g/dL 13.0 - 17.0 g/dL [facility] Immature granulocytes (Bld) [#/Vol] [facility] Immature granulocytes/100 WBC (Bld) 0.2 % [facility] Lymphocytes (Bld) [#/Vol] 1.54 10*3/uL [facility] Lymphocytes/100 WBC (Bld) 32.8 % [facility] MCH (RBC) [Entitic mass] 30.5 pg 26. 0 - 34.0 pg [facility] MCHC (RBC) [Mass/Vol] 34.3 g/dL 30.5 - 36.0 g/dL [facility] MCV (RBC) [Entitic vol] 88.9 fL 80.0 - 100.0 fL [facility] Monocytes (Bld) [#/Vol] 0.40 10*3/uL [facility] Monocytes/100 WBC (Bld) 8.5 % [facility] Neutrophils (Bld) [#/Vol] 2.62 10*3/uL [facility] Neutrophils/100 WBC (Bld) 56.0 % [facility] Nucleated RBC (Bld) [#/Vol] NINF [facility] Nucleated RBC/100 WBC (Bld) [Ratio] 0.0 % /100 WBC [facility] Platelet mean volume (Bld) [Entitic vol] 9.1 fL 9.0 - 12.7 fL [facility] Platelets (Bld) [#/Vol] 223 10*3/uL [facility] RBC (Bld) [#/Vol] 4.86 10*6/uL 4.20 - 6.00 m/uL [facility] WBC (Bld) [#/Vol] 4.69 10*3/uL [facility] [place] 08-12-2023 [facility] Telephone (CNM) JOSELYN CARNES ([id number]) 1980 M Date Time Provider Department 08/12/23 MARIALUISA PORTILLO [facility] During your visit today, we recorded the following information about you: Marialuisa Portillo RN 08/13/2023 8:16 AM Addendum Prior Authorization Documentation Prior authorization requested for: MEDICATION Butran 5 mcg TD patch Submitted via Cover [employer] Insurance Company Name: [employer] and Pharmacy Name: [facility] Authorization approval #: APPROVED. RICK# [id number] Dates of Approval: from 08/12/2023 to 11/08/2024 [...] Date Reviewed: 08/11/2023 Reviewed by: Simran Nelson APRN.LONGSHORE EQUIPMENT OPERATOR - Fully Assessed Reason for Visit: Insurance [...] Dr. Ceballos in the cancer center at [facility] discontinued all of his medication Duglas RMA Problem List As Of Date 08/12/2023 Noted [...] Encounter Status:Closed by MARIALUISA PORTILLO on 08/12/23 Normal [facility] Comprehensive metabolic 2000 panelon 08-12-2023 Albumin [Mass/Vol] 5.0 g/dL High 3.9 - 4.9 g/dL [facility] ALP [Catalytic activity/Vol] 96 U/L 38 - 113 U/L [facility] ALT [Catalytic activity/Vol] 100 U/L High 10 - 54 U/L [facility] Anion gap [Moles/Vol] 10 mmol/L 9 - 18 mmol/L [facility] AST [Catalytic activity/Vol] 49 U/L High 14 - 40 U/L [facility] Bilirubin [Mass/Vol] 0.4 mg/dL 0.2 - 1 .3 mg/dL [facility] Calcium [Mass/Vol] 9.9 mg/dL 8.5 - 10. 2 mg/dL [facility] Chloride [Moles/Vol] 103 mmol/L 97 - 10 5 mmol/L [facility] CO2 [Moles/Vol] 26 mmol/L 22 - 30 mmol/L [facility] Creatinine [Mass/Vol] 1.14 mg/dL 0.73 - 1.22 mg/dL [facility] GFR/1.73 sq M.predicted among non-blacks MDRD (S/P/Bld) [Vol rate/Area] 81 mL/min/{1.73_m2} - PINF [facility] Comment on above: Estimated Glomerular Filtration [...] [Mass/Vol] 87 mg/dL 74 - 99 mg/dL [facility] [facility] Comment on above: The [place] Diabete s Association (ADA) provides guidance for [...] Standards of Medical Care in Diabetes 2016, [place] [employer]. Diabetes Care. 2016.39(Suppl 1). Interpretation and review of laboratory results Abnormal [facility] Potassium [Moles/Vol] 4.2 mmol/L 3.7 - 5.1 mmol/L [facility] Protein [Mass/Vol] 7.4 g/dL 6.3 - 8.0 g/dL [facility] Sodium [Moles/Vol] 139 mmol/L 136 - 144 mmol/L [facility] Urea nitrogen [Mass/Vol] 21 mg/dL 9 - 24 mg/dL [facility] GLUCOSE, BLOOD (POC)on 08-12 Glucose [Mass/Vol] 80 mg/dL 74 - 99 mg/dL [facility] Comment on above: Location:[facility], [address] [place] [address] , [place], [place], [address] The Accu-Chek Inform II glucose meter has [...] blood gas instrument) in the above situations. [facility] LD LACTATE DEHYDROon 024 LDH [Catalytic activity/Vol] 182 U/L 135 - 225 U/L [facility] No Panel InformationOrdered By: Bina Aggarwal on 08-12-2023 Interpretation and review of laboratory results Normal [facility] PET+CT Whole body Bone W 18F -NaF [...] any questions regarding this interpretation, please call [phone]. If you are unable to reach us at the number above, please feel free to [facility] at [phone]. DIVISION OF RADIOLOGY * * *Final Report* [...] Background liver activity: SUVmax 3.5; SUVmean 2.3 [employer] Adjuster [place] (topogram) images: No additional findings. Notes and [...] x 1.2 cm (max SUV 3.8, image Thyroid: No abnormal uptake. CHEST: Note: PET-CT [...] is likely inflammatory. DIVISION OF RADIOLOGY Provider, [facility] - 08/12/2023 * * *Final Report* * [...] Background liver activity: SUVmax 3.5; SUVmean 2.3 Inspector And Adjuster [place] (topogram) images: No additional findings. Notes and [...] any questions regarding this interpretation, please call [phone]. If you are unable to reach us at the number above, please feel free to contact [facility] eRadiology at [phone]. [facility] Radiology Study observation (narrative) [facility] PET+CT Whole body Bone W 18F -NaF IVOrdered By: Ccf Provider on 08-12-2023 [facility] URIC ACID BLOODOrdered By: Lina my White on 08-12-2023 Urate [Mass/Vol] 5.2 mg/dL 4.0 - 8.1 mg/dL [facility] [id number] 05-25-2021 SARS-CoV-2 (COVID-19) RNA DONELL+probe Ql (Unsp spec) Not detected Normal [facility] Comment on above: Result Comment: Rapid NAAT: [...] management decisions. Fact sheet for Healthcare Providers: https://www.fda.gov/media/930154/download Fact sheet for Patients: https://www.fda.gov/media/968505/download Methodology: Isothermal Nucleic Acid Amplification Performed By: #### C OVRB #### [facility] [address] [place] [address] Central Supply Tech: Kali Barnes DO CBC with Diffon 05-18-2021 Abs. Basophil 0.00 k/uL Normal 0.0-0.2 [facility] Comment on above: Performed By: #### A LCB, CDP, MG, CMPX #### [facility] [place] [address] Central Supply Tech: Kali Barnes DO Abs.Neutrophil (Seg) 8.60 k/uL Normal 1.3-9.1 [facility] Comment on above: Performed By: #### A LCB, CDP, MG, CMPX #### [facility] [address] [place] [address] Central Supply Tech: Kali Barnes DO Basophils/100 WBC (Bld) 0 % Normal 0-2 [facility] Comment on above: Performed By: #### A LCB, CDP, MG, CMPX #### [facility] [address] [place] [address] Central Supply Tech: Kali Barnes DO Eosinophils (Bld) [#/Vol] 0.10 10*3/uL Normal 0.0-0.4 [facility] Comment on above: Performed By: #### A LCB, CDP, MG, CMPX #### [facility] [address] [place] [address] Central Supply Tech: Kali Barnes DO Eosinophils/100 WBC (Bld) 1 % Normal 0-4 [facility] Comment on above: Performed By: #### A LCB, CDP, MG, CMPX #### [facility] [address] [place] [address] Central Supply Tech: Kali Barnes DO Erythrocyte distribution width (RBC) [Ratio] 14.2 % Normal 11.5-14.9 [facility] Comment on above: Performed By: #### A LCB, CDP, MG, CMPX #### [facility] [address] [place] [address] Central Supply Tech: Kali Barnes DO Hematocrit (Bld) [Volume fraction] 45.3 % Normal 41-53 [facility] Comment on above: Performed By: #### A LCB, CDP, MG, CMPX #### [facility] [address] [place] [address] Central Supply Tech: Kali Barnes DO Hemoglobin (Bld) [Mass/Vol] 15.5 g/dL Normal 13.5-17.5 [facility] Comment on above: Performed By: #### A LCB, CDP, MG, CMPX #### [facility] [address] [place] [address] Central Supply Tech: Kali Barnes DO Lymphocytes (Bld) [#/Vol] 1.30 10*3/uL Normal 1.0-4.8 [facility] Comment on above: Performed By: #### A LCB, CDP, MG, CMPX #### [facility] [place] [address] Central Supply Tech: Kali Barnes DO Lymphocytes/100 WBC (Bld) 13 % Low 24-44 [facility] Comment on above: Performed By: #### A LCB, CDP, MG, CMPX #### [facility] [place] [address] Central Supply Tech: Kali Barnes DO MCH (RBC) [Entitic mass] 31.8 pg Normal 26-34 [facility] Comment on above: Performed By: #### A LCB, CDP, MG, CMPX #### [facility] [address] [place] [address] Central Supply Tech: Kali Barnes DO MCHC (RBC) [Mass/Vol] 34.2 g/dL Normal 31-37 [facility] Comment on above: Performed By: #### A LCB, CDP, MG, CMPX #### [facility] [address] [place] [address] Central Supply Tech: Kali Barnes DO MCV (RBC) [Entitic vol] 93.0 fL Normal 80-100 [facility] Comment on above: Performed By: #### A LCB, CDP, MG, CMPX #### [facility] [place] [address] Central Supply Tech: Kali Barnes DO Monocytes (Bld) [#/Vol] 0.50 10*3/uL Normal 0.1-1.3 [facility] Comment on above: Performed By: #### A LCB, CDP, MG, CMPX #### [facility] [address] [place] [address] Central Supply Tech: Kali Barnes DO Monocytes/100 WBC (Bld) 5 % Normal 1-7 [facility] Comment on above: Performed By: #### A LCB, CDP, MG, CMPX #### [facility] [address] [place] [address] Central Supply Tech: Kali Barnes DO Neutrophil (Seg) 81 % High 36-66 [facility] Comment on above: Performed By: #### A LCB, CDP, MG, CMPX #### [facility] [address] [place] [address] Central Supply Tech: Kali Barnes DO Platelet mean volume (Bld) [Entitic vol] 8.0 fL Normal 6.0-12.0 [facility] Comment on above: Performed By: #### A LCB, CDP, MG, CMPX #### [facility] [address] [place] [address] Central Supply Tech: Kali Barnes DO Platelets (Bld) [#/Vol] 208 10*3/uL Normal 150-450 [facility] Comment on above: Performed By: #### A LCB, CDP, MG, CMPX #### [facility] [address] [place] [address] Central Supply Tech: Kali Barnes DO RBC (Bld) [#/Vol] 4.87 10*6/uL Normal 4.5-5.9 [facility] Comment on above: Performed By: #### A LCB, CDP, MG, CMPX #### [facility] [address] [place] [address] Central Supply Tech: Kali Barnes DO WBC (Bld) [#/Vol] 10.6 10*3/uL Normal 3.5-11.0 [facility] Comment on above: Performed By: #### A LCB, CDP, MG, CMPX #### [facility] [address] [place] [address] Central Supply Tech: Kali Barnes DO Abs.Imm.Granulocyte NOT REPORTED Normal 0.00-0.30 [facility] Comment on above: Performed By: #### A LCB, CDP, MG, CMPX #### [facility] [address] [place] [address] Central Supply Tech: Kali Barnes DO Auto Diff Performed NOT REPORTED Normal [facility] Comment on above: Performed By: #### A LCB, CDP, MG, CMPX #### [facility] [address] [place] [address] Central Supply Tech: Kali Barnes DO Immature Granulocyte NOT REPORTED Normal 0 [facility] Comment on above: Performed By: #### A LCB, CDP, MG, CMPX #### [facility] [address] [facility] [place] [address] Central Supply Tech: Kali Barnes DO NRBC Automated NOT REPORTED Normal [facility] Comment on above: Performed By: #### A LCB, CDP, MG, CMPX #### [facility] [address] [place] [address]. [place] [address] Central Supply Tech: Kali Barnes DO Platelet Comment NOT REPORTED Normal [facility] Comment on above: Performed By: #### A LCB, CDP, MG, CMPX #### [facility] [address] [place] [address]. [place] [address] Central Supply Tech: Kali Barnes DO RBC morphology finding Nom (Bld) NOT REPORTED Normal [facility] Comment on above: Performed By: #### A LCB, CDP, MG, CMPX #### [facility] [address] [place] [address]. [place] [address] Central Supply Tech: Kali Barnes DO WBC Morphology NOT REPORTED Normal [facility] Comment on above: Performed By: #### A LCB, CDP, MG, CMPX #### [facility] [place] [address] Central Supply Tech: Kali Barnes DO Comp Metabolic Pr/rfx MGon 1 07-19-2020 Potassium [Moles/Vol] 3.4 mmol/L Low 3.7-5.3 [facility] Comment on above: Performed By: #### A LCB, CDP, MG, CMPX #### [facility] [address] [place] [address] Central Supply Tech: Kali Barnes DO (cont.) Normal [facility] Comment on above: Result Comment: Aver age GFR for 40-49 years old: 99 mL/min/1.73sq m Chronic Kidney Disease: <60 mL/min/1.73sq m Kidney failure: <15 mL/min/1.73sq m eGFR calculated using average adult body mass. Additional eGFR calculator available at: http://www.51intern.com.ScramblerMail/multiple_crcl_2012.htm Performed By: #### A LCB, CDP, MG, CMPX #### [facility] [place] [address] Central Supply Tech: Kali Barnes DO Albumin [Mass/Vol] 5.3 g/dL High 3.5-5.2 [facility] Comment on above: Performed By: #### A LCB, CDP, MG, CMPX #### [facility] [address] [place] [address] Central Supply Tech: Kali Barnes DO Alkaline Phos 98 U/L Normal 40-129 [facility] Comment on above: Performed By: #### A LCB, CDP, MG, CMPX #### [facility] [address] [place] [address] Central Supply Tech: Kali Barnes DO ALT [Catalytic activity/Vol] 21 U/L Normal 5-41 [facility] Comment on above: Performed By: #### A LCB, CDP, MG, CMPX #### [facility] [address] [place] [address] Central Supply Tech: Kali Barnes DO Anion gap [Moles/Vol] 15 mmol/L Normal 9-17 [facility] Comment on above: Performed By: #### A LCB, CDP, MG, CMPX #### [facility] [address] [place] [address] Central Supply Tech: Kali Barnes DO AST [Catalytic activity/Vol] 25 U/L Normal <40 [facility] Comment on above: Performed By: #### A LCB, CDP, MG, CMPX #### [facility] [address] [place] [address] Central Supply Tech: Kali Barnes DO Bilirubin [Mass/Vol] 0.34 mg/dL Normal 0.3-1.2 [facility] Comment on above: Performed By: #### A LCB, CDP, MG, CMPX #### [facility] [address] [place] [address] Central Supply Tech: Kali Barnes DO Calcium [Mass/Vol] 9.8 mg/dL Normal 8.6-10.4 [facility] Comment on above: Performed By: #### A LCB, CDP, MG, CMPX #### [facility] [place] [place] [address] Central Supply Tech: Kali Barnes DO Chloride [Moles/Vol] 102 mmol/L Normal 98-107 [facility] Comment on above: Performed By: #### A LCB, CDP, MG, CMPX #### [facility] [place] [address] Central Supply Tech: Kali Barnes DO CO2 [Moles/Vol] 22 mmol/L Normal 20-31 [facility] Comment on above: Performed By: #### A LCB, CDP, MG, CMPX #### [facility] [place] [address] Central Supply Tech: Kali Barnes DO Creatinine [Mass/Vol] 1.05 mg/dL Normal 0.70-1.20 [facility] Comment on above: Performed By: #### A LCB, CDP, MG, CMPX #### [facility] [address] [facility] [place] [address] Central Supply Tech: Kali Barnes DO GFR, Amer >60 Normal >60 [facility] Comment on above: Performed By: #### A LCB, CDP, MG, CMPX #### [facility] [address] [facility] [place] [address] Central Supply Tech: Kali Barnes DO GFR,non Amer >60 Normal >60 [facility] Comment on above: Performed By: #### A LCB, CDP, MG, CMPX #### [facility] [address] [facility] [place] [address] Central Supply Tech: Kali Barnes DO Glucose [Mass/Vol] 73 mg/dL Normal 70-99 [facility] Comment on above: Performed By: #### A LCB, CDP, MG, CMPX #### [facility] [place] [address] Central Supply Tech: Kali Barnes DO Protein [Mass/Vol] 7.8 g/dL Normal 6.4-8.3 [facility] Comment on above: Performed By: #### A LCB, CDP, MG, CMPX #### [facility] [place] [address] Central Supply Tech: Kali Barnes DO Sodium [Moles/Vol] 139 mmol/L Normal 135-144 [facility] Comment on above: Performed By: #### A LCB, CDP, MG, CMPX #### [facility] [place] [address] Central Supply Tech: Kali Barnes DO Urea nitrogen [Mass/Vol] 10 mg/dL Normal 6-20 [facility] Comment on above: Performed By: #### A LCB, CDP, MG, CMPX #### [facility] [place] [address] Central Supply Tech: Kali Barnes DO Albumin/Glob Ratio NOT REPORTED Normal 1.0-2.5 [facility] Comment on above: Performed By: #### A LCB, CDP, MG, CMPX #### [facility] [address] [facility] [place] [address] Central Supply Tech: Kali Barnes DO BUN/CRE Ratio NOT REPORTED Normal 9-20 [facility] Comment on above: Performed By: #### A LCB, CDP, MG, CMPX #### [facility] [address] [facility] [place] [address] Central Supply Tech: Kali Barnes DO Staging: NOT REPORTED Normal [facility] Comment on above: Performed By: #### A LCB, CDP, MG, CMPX #### [facility] [address] [facility] [place] [address] Central Supply Tech: Kali Barnes DO Ethanol Alcoholon 9 Ethanol [Mass/Vol] 145 mg/dL High <10 [facility] Comment on above: Performed By: #### A LCB, CDP, MG, CMPX #### [facility] [address] [facility] [place] [address] Central Supply Tech: Kali Barnes DO Ethanol percent 0.145 % Normal [facility] Comment on above: Performed By: #### A LCB, CDP, MG, CMPX #### [facility] [address] [facility] [place] [address] Central Supply Tech: Kali Barnes DO Magnesiumon 05-18-2021 Magnesium [Mass/Vol] 2.5 mg/dL Normal 1.6-2.6 [facility] Comment on above: Performed By: #### A LCB, CDP, MG, CMPX #### [facility] [address] [facility] [place] [address] Central Supply Tech: Kali Barnes DO [id number] 05-18-2021 SARS-CoV-2 (COVID-19) RNA DONELL+probe Ql (Unsp spec) Not detected Normal NOTDET [facility] Comment on above: Result Comment: Rapid NAAT: [...] management decisions. Fact sheet for Healthcare Providers: https://www.fda.gov/media/375788/download Fact sheet for Patients: https://www.fda.gov/media/301328/download Methodology: Isothermal Nucleic Acid Amplification Performed By: #### C OVRB #### [facility] [address] [place] [address] Central Supply Tech: Kali Barnes DO Cryoglobulinson 12-10-2018 Cryoglobulins 0 mg/dL Normal 0-10 [facility] Comment on above: Performed By: #### C DP, PT, TROPI, CMPX #### [facility] [address] [place] [address] Central Supply Tech: Sanju Eli MD MRI BRAIN WO CONTRASTon [...] Jamin Bowen MD 12/08/18 Final result Normal [facility] [id number] Abon 2018 B2 Glycoprot I, IgG 0 SGU Normal 0-20 [facility] Comment on above: Performed By: #### C DP, PT, TROPI, CMPX #### [facility] [place] [address] Central Supply Tech: Sanju Eli MD B2 Glycoprot I, IgM 1 SMU Normal 0-20 [facility] Comment on above: Result Comment: (NOT E) INTERPRETIVE INFORMATION: [id number] I, IgG and IgM Antibody The persistent [...] other criteria phospholipid antibody tests. Performed by [facility], [address] [place] [id number] [email or web address], Moreno Hall MD, Lab. Director Performed By: #### C DP, PT, TROPI, CMPX #### [facility] [place] [address] [place] [address] [id number] Central Supply Tech: Sanju Eli MD CH50on 12-08-2018 CH50 96 Units Normal 60-144 [facility] Comment on above: Result Comment: (NOT E) INTERPRETIVE INFORMATION: Complement Activity, Total EIA 59 Units or less .......... Low 60-144 Units .............. Normal 145 Units or greater ....... High Performed by [facility], [address] [place] [id number] [email or web address], Moreno Hall MD, Lab. Director Performed By: #### C DP, PT, TROPI, CMPX #### [facility] [place] [address] [place] [address] [phone] Central Supply Tech: Sanju Eli MD Protein C Antigenicon 2018 Protein [Mass/Vol] 125 % Normal 63-153 [facility] Comment on above: Result Comment: (NOT E) INTERPRETIVE INFORMATION: Protein C, Total Antigen Patients on warfarin may have decreased protein C values. Patients should be off warfarin therapy for two weeks for accurate measurement of protein C. Access complete set of age- and/or gender-specific reference intervals for this test in the [facility] Test Directory (ufindads). Performed by [facility], [address] [place] [id number] [email or web address], Moreno Hall MD, Lab. Director Performed By: #### C DP, PT, TROPI, CMPX #### [facility] [place] [address] [place] [address] [phone] Central Supply Tech: Sanju Eli MD Protein S, Antigenicon 12-08 Protein [Mass/Vol] 99 % Normal 84-134 [facility] Comment on above: Result Comment: (NOT E) INTERPRETIVE INFORMATION: Protein S, Total Antigen Patients on warfarin may have decreased protein S values. Patients should be off warfarin therapy for two weeks for accurate measurement of protein S. Access complete set of age- and/or gender-specific reference intervals for this test in the [employer] Test Directory (ufindads). Performed by [facility], [facility] [place] [address] [email or web address], Moreno Hall MD, Lab. Director Performed By: #### C DP, PT, TROPI, CMPX #### [facility] [place] [address] [place] [address] Central Supply Tech: Sanju Eli MD Factor V Activityon 12-08-19 19 Factor V Activity 123 % Normal 50-150 [facility] Comment on above: Performed By: #### C DP, PT, TROPI, CMPX #### [facility] [address] [place] [address] Central Supply Tech: Sanju Eli MD Lupus Anticoagulanton 2018 Dilute Eulogio Viper Negative Normal NLUP [facility] Comment on above: Performed By: #### C DP, PT, TROPI, CMPX #### [facility] [address] [place] [id number] Central Supply Tech: Sanju Eli MD Antiphospholipid IgA 0.6 APU Normal <12 [facility] Comment on above: Result Comment: Reference Range: 12 - 15 Equivocal >15 Positive Performed By: #### C DP, PT, TROPI, CMPX #### [facility] [address] [place] [address] Central Supply Tech: Sanju Eli MD Antiphospholipid IgG 2.6 GPU Normal <20 [facility] Comment on above: Result Comment: Reference Range: 20.0 - 29.9 Low Positive 30.0 - 79.9 Moderate Positive >79.9 High Positive Performed By: #### C DP, PT, TROPI, CMPX #### [address] [address] Central Supply Tech: Sanju Eli MD Antiphospholipid IgM 2.0 MPU Normal <20 [facility] Comment on above: Result Comment: Reference Range: 20.0 - 29.9 Low Positive 30.0 - 79.9 Moderate Positive >79.9 High Positive Performed By: #### C DP, PT, TROPI, CMPX #### [address] [address] Central Supply Tech: Sanju Eli MD Neutrophil Cytopl Abon 12-07 MPO-ANCA 7 AU/mL Normal <100 [facility] Comment on above: Result Comment: Reference Ranges (MPO and PR3): <100 AU/mL Negative 100-120 AU/mL Equivocal >120 AU/mL Positive Performed By: #### C DP, PT, TROPI, CMPX #### [address] [address] Central Supply Tech: Sanju Eli MD PR3-ANCA 11 AU/mL Normal <100 [facility] Comment on above: Result Comment: Reference Ranges (MPO and PR3): <100 AU/mL Negative 100-120 AU/mL Equivocal >120 AU/mL Positive Performed By: #### C DP, PT, TROPI, CMPX #### [address] [address] Central Supply Tech: Sanju Eli MD JACKY Screenon 12-06-2018 JACKY Screen Negative Normal NEG [facility] Comment on above: Result Comment: This test was run on the [employer] JACKY test system. The system provides ten test results (HEp-2NA, dsDNA, SSA, SSB, Sm, DISEASE INTERVENTION SPECIALIST, Scl-70, Bettie-1, Centromere and Histone analytes) from a single patient sample. A negative JACKY screen indicates that the specimen was negative for all ten markers. Performed By: #### C DP, PT, TROPI, CMPX #### [address] [address] Central Supply Tech: Sanju Eli MD MRI BRAIN WO CONTRASTon [...] Shivam Kelley MD 12/06/18 Final result Normal [facility] MTHFR Gene Mutationon 2018 Report to follow: [id number] Normal [facility] Comment on above: Result Comment: SEE SEPARATE REPORT Performed By: #### C DP, PT, TROPI, CMPX #### [facility] [employer] [address] [place] [address] [id number] Central Supply Tech: Sajnu Eli MD PT Mutation [id number] 12-07-19 19 Report to follow: [id number] Normal [facility] Comment on above: Result Comment: SEE SEPARATE REPORT Performed By: #### C DP, PT, TROPI, CMPX #### [facility] [employer] [address] [place] [address] Central Supply Tech: Sanju Eli MD C-Reactive Proteinon 019 CRP [Mass/Vol] 1.3 mg/L Normal 0.0-5.0 [facility] Comment on above: Performed By: #### C DP, PT, TROPI, CMPX #### [facility] [address] [place] [address] Central Supply Tech: Sanju Eli MD DNA Testingon 12-05-2018 DNA Testing (NOTE) [id number] [facility] MOLECULAR PATHOLOGY LABORATORY [address] [place] [id number] FACTOR II (PROTHROMBIN) MUTATION ANALYSIS REPORT [facility] Alejandro Garcia MD, Ovidio Leyva MD Specimen(s) Received: Peripheral blood, PTI Clinical Information: Right Sided Weakness RESULTS: MOLECULAR GENETIC DIAGNOSIS: Negative for Prothrombin 87228J Mutation INTERPRETATION: The Factor II (Prothrombin) mutation (74026BZ) [c.*97G>A] was not detected in this study. This patient may, however, still be at risk for venous thrombosis due to another genetic predisposition including the Factor V Leiden (1691GA) mutation or either of the 5, 10-methylenetetrahydr ofolate reductase (MTHFR) mutations (677T and C1128Z). Additional molecular testing is available for these [...] been identified in exon 14 at position 29226 of the prothrombin gene ([id number]). This allele has a population frequency of 1.2% and is associated with a 2.8 fold increased risk of venous thrombosis in individuals of [place] ancestry. Patient DNA is assayed for the presence of wild type or mutant gene sequences in the Factor II (Prothrombin) gene by the Invader Factor II test that utilizes Interventional Imaging chemistry for detecting gene-specific sequences. Target amplification [...] Invader and Cleavase are registered trademarks of [employer] This test is performed pursuant to an agreement with [employer] Electronically Signed Out Alejandro Garcia M.D. 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 Negative for MTHFR 677T Mutation INTERPRETATION: Using the methodology described, this patient was found to be a carrier of the MTHFR A0117H [c.1286A>C(p.Jyw307Rv a)] mutation. The presence of this mutation in the heterozygous state is not an independent risk factor associated with increased risk of hyperhomocysteinemia, venous thromboembolism or ischemic cardiovascular disease. This patient may, however, still be at risk for venous thrombosis due to another genetic predisposition including the Factor V Leiden mutation or Prothrombin 12926E mutation. Additional molecular testing is available for these mutations in this laboratory. In addition, other etiologies not studied in this assay may predispose this patient to venous thrombosis. Genetic counseling is recommended to discuss the implications of this testing. In addition, the study of other at-risk family members is recommended. Please contact the [facility] at [phone]. This molecular test has been approved for [...] the remethylation of homocysteine. The C677T and G1016I mutations in this gene in either a heterozygous or homozygous state correlate with reduced enzyme activity. Increased plasma homocysteine levels (hyperhomocysteinemia ) as a result of reduced enzyme activity and increased thermolability occur in individuals homozygous for the C677T mutation or in individuals carrying one C677T mutation and one K7184P mutation (compound heterozygosity). Patient DNA is assayed for the presence of wild type or mutant gene sequences in the MTHFR gene by the Invader MTHFR test that utilizes Interventional Imaging chemistry for detecting gene-specific sequences. Target amplification [...] Invader and Cleavase are registered trademarks of [employer]. This test is performed pursuant to an agreement with [employer] Electronically Signed Out Alejandro Garcia M.D. Normal [facility] Comment on above: Performed By: #### C DP, PT, TROPI, CMPX #### [facility] [address] [place] [address] [phone] Central Supply Tech: Sanju Eli MD Hemoglobin A1Con 12-05-2018 HbA1c (Bld) [Mass fraction] 5.3 % Normal 4.0-6.0 [facility] Comment on above: Performed By: #### C BC, LIPR, BMP, GLYHGB #### [facility] [address] [place] [address] [phone] Central Supply Tech: Sanju Eli MD HbA1c (Bld) [Mass fraction] 105 mg/dL Normal [facility] Comment on above: Result Comment: The ADA and AACC recommend providing the estimated average glucose result to permit better patient understanding of their HBA1c result. Performed By: #### C BC, LIPR, BMP, GLYHGB #### [address] [address] Central Supply Tech: Sanju Eli MD Lupus Anticoagulanton 2018 aPTT Coag (Bld) [Time] 23.3 s Normal 20.5-30.5 [facility] Comment on above: Performed By: #### C DP, PT, TROPI, CMPX #### [address] [address] Central Supply Tech: Sanju Eli MD INR Coag (PPP) [Relative time] 0.9 {INR} Normal [facility] Comment on above: Result Comment: Therapeutic Range: Moderate Anticoagulant Intensity: INR = 2.0-3.0 High Anticoagulant Intensity: INR = 2.5-3.5 Performed By: #### C DP, PT, TROPI, CMPX #### [address] [address] Central Supply Tech: Sanju Eli MD PT Coag (PPP) [Time] 10.1 s Normal 9.0-12.0 [facility] Comment on above: Performed By: #### C DP, PT, TROPI, CMPX #### [address] [address] Central Supply Tech: Sanju Eli MD Lupus Anticoagulant NOT REPORTED Normal [facility] Comment on above: Performed By: #### C DP, PT, TROPI, CMPX #### [address] [address] Central Supply Tech: Sanju Eli MD MRI CERVICAL SPINE WO CONTRA STon 12-05-2018 MRI CERVICAL SPINE WO CONTRAST EXAMINATION: [...] Krishna Govea MD 12/05/18 Final result Normal [facility] Sedimentation Rateon 019 Sedimentation Rate 4 mm Normal 0-10 [facility] Comment on above: Performed By: #### C DP, PT, TROPI, CMPX #### [facility] [address] [place] [address] Central Supply Tech: Sanju Eli MD Basic Metabolic Profon 12-04 (cont.) Normal [facility] Comment on above: Result Comment: Aver age GFR for 30-39 years old: 107 mL/min/1.73sq m Chronic Kidney Disease: <60 mL/min/1.73sq m Kidney failure: <15 mL/min/1.73sq m eGFR calculated using average adult body mass. Additional eGFR calculator available at: http://www.Aqdot/multiple_crcl_2012.htm ADDED ON Performed By: #### C BC, LIPR, BMP, GLYHGB #### [facility] [address] [place] [address] Central Supply Tech: Sanju Eli MD Anion gap [Moles/Vol] 16 mmol/L Normal 9-17 [facility] Comment on above: Result Comment: ADDE D ON Performed By: #### C BC, LIPR, BMP, GLYHGB #### [facility] [address] [place] [address] Central Supply Tech: Sanju Eli MD Calcium [Mass/Vol] 8.8 mg/dL Normal 8.6-10.4 [facility] Comment on above: Result Comment: ADDE D ON Performed By: #### C BC, LIPR, BMP, GLYHGB #### [facility] [address] [place] [address] Central Supply Tech: Sanju Eli MD Chloride [Moles/Vol] 105 mmol/L Normal 98-107 [facility] Comment on above: Result Comment: ADDE D ON Performed By: #### C BC, LIPR, BMP, GLYHGB #### [facility] [place] [address] Central Supply Tech: Sanju Eli MD CO2 [Moles/Vol] 18 mmol/L Low 20-31 [facility] Comment on above: Result Comment: ADDE D ON Performed By: #### C BC, LIPR, BMP, GLYHGB #### [facility] [address] [place] [address] Central Supply Tech: Sanju Eli MD Creatinine [Mass/Vol] 1.20 mg/dL Normal 0.70-1.20 [facility] Comment on above: Result Comment: ADDE D ON Performed By: #### C BC, LIPR, BMP, GLYHGB #### [facility] [address] [place] [address] Central Supply Tech: Sanju Eli MD GFR, Amer >60 Normal >60 [facility] Comment on above: Result Comment: ADDE D ON Performed By: #### C BC, LIPR, BMP, GLYHGB #### [facility] [address] [place] [address] Central Supply Tech: Sanju Eli MD GFR,non Amer >60 Normal >60 [facility] Comment on above: Result Comment: ADDE D ON Performed By: #### C BC, LIPR, BMP, GLYHGB #### [facility] [address] [place] [address] Central Supply Tech: Sanju Eli MD Glucose [Mass/Vol] 76 mg/dL Normal 70-99 [facility] Comment on above: Result Comment: ADDE D ON Performed By: #### C BC, LIPR, BMP, GLYHGB #### [facility] [address] [place] [address] Central Supply Tech: Sanju Eli MD Potassium [Moles/Vol] 4.1 mmol/L Normal 3.7-5.3 [facility] Comment on above: Result Comment: ADDE D ON Performed By: #### C BC, LIPR, BMP, GLYHGB #### [facility] [address] [place] [address] Central Supply Tech: Sanju Eli MD Sodium [Moles/Vol] 139 mmol/L Normal 135-144 [facility] Comment on above: Result Comment: ADDE D ON Performed By: #### C BC, LIPR, BMP, GLYHGB #### [facility] [place] [address] Central Supply Tech: Sanju Eli MD Urea nitrogen [Mass/Vol] 14 mg/dL Normal -20 [facility] Comment on above: Result Comment: ADDE D ON Performed By: #### C BC, LIPR, BMP, GLYHGB #### [facility] [address] [place] [address] Central Supply Tech: Sanju Eli MD BUN/CRE Ratio NOT REPORTED Normal - [facility] Comment on above: Performed By: #### C BC, LIPR, BMP, GLYHGB #### [facility] [address] [place] [address] Central Supply Tech: Sanju Eli MD Staging: NOT REPORTED Normal [facility] Comment on above: Performed By: #### C BC, LIPR, BMP, GLYHGB #### [facility] [address] [place] [address] Central Supply Tech: Sanju Eli MD CBCon 12-04-2018 Erythrocyte distribution width (RBC) [Ratio] 15.7 % High 11.8-14.4 [facility] Comment on above: Performed By: #### C BC, LIPR, BMP, GLYHGB #### [facility] [address] [place] [address] Central Supply Tech: Sanju Eli MD Hematocrit (Bld) [Volume fraction] 39.9 % Low 40.7-50.3 [facility] Comment on above: Performed By: #### C BC, LIPR, BMP, GLYHGB #### [facility] [address] [place] [address] Central Supply Tech: Sanju Eli MD Hemoglobin (Bld) [Mass/Vol] 12.7 g/dL Low 13.0-17.0 [facility] Comment on above: Performed By: #### C BC, LIPR, BMP, GLYHGB #### [facility] [address] [place] [address] Central Supply Tech: Sanju Eli MD MCH (RBC) [Entitic mass] 30.0 pg Normal 25.2-33.5 [facility] Comment on above: Performed By: #### C BC, LIPR, BMP, GLYHGB #### [address] [address] Central Supply Tech: Sanju Eli MD MCHC (RBC) [Mass/Vol] 31.8 g/dL Normal 28.4-34.8 [facility] Comment on above: Performed By: #### C BC, LIPR, BMP, GLYHGB #### [address] [address] Central Supply Tech: Sanju Eli MD MCV (RBC) [Entitic vol] 94.1 fL Normal 82.6-102.9 [facility] Comment on above: Performed By: #### C BC, LIPR, BMP, GLYHGB #### [address] [address] Central Supply Tech: Sanju Eli MD NRBC Automated 0.0 per 100 WBC Normal 0.0 [facility] Comment on above: Performed By: #### C BC, LIPR, BMP, GLYHGB #### [address] [address] Central Supply Tech: Sanju Eli MD Platelet mean volume (Bld) [Entitic vol] 9.5 fL Normal 8.1-13.5 [facility] Comment on above: Performed By: #### C BC, LIPR, BMP, GLYHGB #### [address] [address] Central Supply Tech: Sanju Eli MD Platelets (Bld) [#/Vol] 210 10*3/uL Normal 138-453 [facility] Comment on above: Performed By: #### C BC, LIPR, BMP, GLYHGB #### [facility] [facility] [address] [place] [address] Central Supply Tech: Sanju Eli MD RBC (Bld) [#/Vol] 4.24 10*6/uL Normal 4.21-5.77 [facility] Comment on above: Performed By: #### C BC, LIPR, BMP, GLYHGB #### [facility] [facility] [address] [place] [address] Central Supply Tech: Sanju Eli MD WBC (Bld) [#/Vol] 5.1 10*3/uL Normal 3.5-11.3 [facility] Comment on above: Performed By: #### C BC, LIPR, BMP, GLYHGB #### [address] [address] Central Supply Tech: Sanju Eli MD Comp Metabolic Pr/rfx MGon 0 - Albumin [Mass/Vol] 4.4 g/dL Normal 3.5-5.2 [facility] Comment on above: Performed By: #### C DP, PT, TROPI, CMPX #### [facility] [address] [place] [address] Central Supply Tech: Sanju Eli MD Albumin/Globulin [Mass ratio] 1.7 {ratio} Normal 1.0-2.5 [facility] Comment on above: Performed By: #### C DP, PT, TROPI, CMPX #### [facility] [address] [place] [address] Central Supply Tech: Sanju Eli MD Alkaline Phos 84 U/L Normal 40-129 [facility] Comment on above: Performed By: #### C DP, PT, TROPI, CMPX #### [facility] [address] [place] [address] Central Supply Tech: Sanju Eli MD ALT [Catalytic activity/Vol] 19 U/L Normal 5-41 [facility] Comment on above: Performed By: #### C DP, PT, TROPI, CMPX #### [facility] [address] [place] [address] Central Supply Tech: Sanju Eli MD Anion gap [Moles/Vol] 10 mmol/L Normal 9-17 [facility] Comment on above: Performed By: #### C DP, PT, TROPI, CMPX #### [facility] [address] [place] [address] Central Supply Tech: Sanju Eli MD AST [Catalytic activity/Vol] 23 U/L Normal <40 [facility] Comment on above: Performed By: #### C DP, PT, TROPI, CMPX #### [address] [address] Central Supply Tech: Sanju Eli MD Bilirubin Ql (U) 0.22 mg/dL Low 0.3-1.2 [facility] Comment on above: Performed By: #### C DP, PT, TROPI, CMPX #### [facility] [address] [place] [address] Central Supply Tech: Sanju Eli MD Calcium [Mass/Vol] 8.9 mg/dL Normal 8.6-10.4 [facility] Comment on above: Performed By: #### C DP, PT, TROPI, CMPX #### [facility] [address] [place] [address] Central Supply Tech: Sanju Eli MD Chloride [Moles/Vol] 107 mmol/L Normal 98-107 [facility] Comment on above: Performed By: #### C DP, PT, TROPI, CMPX #### [facility] [address] [place] [address] Central Supply Tech: Sanju Eli MD CO2 [Moles/Vol] 24 mmol/L Normal 20-31 [facility] Comment on above: Performed By: #### C DP, PT, TROPI, CMPX #### [address] [address] Central Supply Tech: Sanju Eli MD Creatinine [Mass/Vol] 1.25 mg/dL High 0.70-1.20 [facility] Comment on above: Performed By: #### C DP, PT, TROPI, CMPX #### [address] [address] Central Supply Tech: Sanju Eli MD GFR, Amer >60 Normal >60 [facility] Comment on above: Performed By: #### C DP, PT, TROPI, CMPX #### [address] [address] Central Supply Tech: Sanju Eli MD GFR,non Amer >60 Normal >60 [facility] Comment on above: Performed By: #### C DP, PT, TROPI, CMPX #### [address] [address] Central Supply Tech: Sanju Eli MD Glucose [Mass/Vol] 79 mg/dL Normal 70-99 [facility] Comment on above: Performed By: #### C DP, PT, TROPI, CMPX #### [address] [address] Central Supply Tech: Sanju Eli MD Potassium [Moles/Vol] 3.9 mmol/L Normal 3.7-5.3 [facility] Comment on above: Performed By: #### C DP, PT, TROPI, CMPX #### [address] [address] Central Supply Tech: Sanju Eli MD Protein [Mass/Vol] 7.0 g/dL Normal 6.4-8.3 [facility] Comment on above: Performed By: #### C DP, PT, TROPI, CMPX #### [address] [address] Central Supply Tech: Sanju Eli MD Sodium [Moles/Vol] 141 mmol/L Normal 135-144 [facility] Comment on above: Performed By: #### C DP, PT, TROPI, CMPX #### [address] [address] Central Supply Tech: Sanju Eli MD Urea nitrogen [Mass/Vol] 13 mg/dL Normal 6-20 [facility] Comment on above: Performed By: #### C DP, PT, TROPI, CMPX #### [address] [address] Central Supply Tech: Sanju Eli MD (cont.) Normal [facility] Comment on above: Result Comment: Aver age GFR for 30-39 years old: 107 mL/min/1.73sq m Chronic Kidney Disease: <60 mL/min/1.73sq m Kidney failure: <15 mL/min/1.73sq m eGFR calculated using average adult body mass. Additional eGFR calculator available at: http://www.51intern.com.ScramblerMail/multiple_crcl_2012.htm Performed By: #### C DP, PT, TROPI, CMPX #### [address] [address] Central Supply Tech: Sanju Eli MD Drug Scr, Abuse, Uron 2018 Amphetamine(s),Ur Negative Normal NEG [facility] Comment on above: Result Comment: (Positive cutoff 1000 ng/mL) Performed By: #### C DP, PT, TROPI, CMPX #### [facility] [address] [place] [address] Central Supply Tech: Sanju Eli MD Barbiturate(s),Ur Negative Normal NEG [facility] Comment on above: Result Comment: (Positive cutoff 200 ng/mL) Performed By: #### C DP, PT, TROPI, CMPX #### [facility] [address] [place] [address] Central Supply Tech: aSnju Eli MD Base excess Calc (Bld) [Moles/Vol] Positive Abnormal NEG [facility] Comment on above: Result Comment: (Positive cutoff 300 ng/mL) Performed By: #### C DP, PT, TROPI, CMPX #### [facility] [address] [place] [address] Central Supply Tech: Sanju Eli MD Benzodiazepine(s) Negative Normal NEG [facility] Comment on above: Result Comment: (Positive cutoff 200 ng/mL) Performed By: #### C DP, PT, TROPI, CMPX #### [facility] [place] [address] [place] [address] Central Supply Tech: Sanju Eli MD Cannabinoid(s),Ur Negative Normal NEG [facility] Comment on above: Result Comment: (Positive cutoff 50 ng/mL) Performed By: #### C DP, PT, TROPI, CMPX #### [facility] [address] [place] [address] Central Supply Tech: Sanju Eli MD Interpretive Info Assay provides medical screening only. The absence of expected drug(s) and/or Normal [facility] Comment on above: Result Comment: meta bolite(s) may indicate diluted or adulterated urine, limitations of testing or timing of collection. Testing for legal purposes should be confirmed by another method. To request confirmation of test result, please call the lab within 7 days of sample submission. Performed By: #### C DP, PT, TROPI, CMPX #### [facility] [place] [address] [place], [place] [phone] Central Supply Tech: Sanju Eli MD Methadone Ql (U) Negative Normal NEG [facility] Comment on above: Result Comment: (Positive cutoff 300 ng/mL) Performed By: #### C DP, PT, TROPI, CMPX #### [facility] [address] [place] [address] Central Supply Tech: Sanju Eli MD Opiate(s), Ur Negative Normal NEG [facility] Comment on above: Result Comment: (Positive cutoff 300 ng/mL) Performed By: #### C DP, PT, TROPI, CMPX #### [facility] [address] [place] [address] Central Supply Tech: Sanju Eli MD Oxycodone, Urine Negative Normal NEG [facility] Comment on above: Result Comment: (Positive cutoff 100 ng/mL) Performed By: #### C DP, PT, TROPI, CMPX #### [place] [address] Central Supply Tech: Sanju Eli MD Phencyclidine, Ur Negative Normal NEG [facility] Comment on above: Result Comment: (Positive cutoff 25 ng/mL) Performed By: #### C DP, PT, TROPI, CMPX #### [facility] [address] [place] [address] Central Supply Tech: Sanju Eli MD Buprenorphrine, Ur NOT REPORTED Normal NEG [facility] Comment on above: Performed By: #### C DP, PT, TROPI, CMPX #### [facility] [address] [place] [address] Central Supply Tech: Sanju Eli MD MDMA, Urine NOT REPORTED Normal NEG [facility] Comment on above: Performed By: #### C DP, PT, TROPI, CMPX #### [facility] [address] [place] [address] Central Supply Tech: Sanju Eli MD Methamphetamine, Ur NOT REPORTED Normal NEG [facility] Comment on above: Performed By: #### C DP, PT, TROPI, CMPX #### [facility] [address] [place] [address] Central Supply Tech: Sanju Eli MD Propoxyphene,Urine NOT REPORTED Normal NEG [facility] Comment on above: Performed By: #### C DP, PT, TROPI, CMPX #### [facility] [address] [place] [address] Central Supply Tech: Sanju Eli MD Tricyclic antidepressants Screen Ql (U) NOT REPORTED Normal NEG [facility] Comment on above: Performed By: #### C DP, PT, TROPI, CMPX #### [facility] [address] [place] [address] Central Supply Tech: Sanju Eli MD Lipid Profileon 12-04-2018 Cholesterol [Mass/Vol] 126 mg/dL Normal <200 [facility] Comment on above: Result Comment: Cholesterol Guidelines: <200 Desirable 200-240 Borderline >240 Undesirable Performed By: #### C BC, LIPR, BMP, GLYHGB #### [facility] [address] [place] [address] Central Supply Tech: Sanju Eli MD Cholesterol in HDL [Mass/Vol] 57 mg/dL Normal >40 [facility] Comment on above: Result Comment: HDL Guidelines: <40 Undesirable 40-59 Borderline >59 Desirable Performed By: #### C BC, LIPR, BMP, GLYHGB #### [facility] [address] [place] [address] Central Supply Tech: Sanju Eli MD Cholesterol in LDL [Mass/Vol] 58 mg/dL Normal 0-130 [facility] Comment on above: Result Comment: LDL Guidelines: <100 Desirable 100-129 Near to/above Desirable 130-159 Borderline >159 Undesirable Direct (measured) LDL and calculated LDL are not interchangeable tests. Performed By: #### C BC, LIPR, BMP, GLYHGB #### [facility] [address] [place] [address] Central Supply Tech: Sanju Eli MD Cholesterol.total/Choles terol in HDL [Mass ratio] 2.2 {ratio} Normal <5 [facility] Comment on above: Performed By: #### C BC, LIPR, BMP, GLYHGB #### [facility] [address] [place] [address] Central Supply Tech: Sanju Eli MD Triglyceride [Mass/Vol] 54 mg/dL Normal <150 [facility] Comment on above: Result Comment: Triglyceride Guidelines: <150 Desirable 150-199 Borderline 200-499 High >499 Very high Based on AHA Guidelines for fasting triglyceride, March 2012. Performed By: #### C BC, LIPR, BMP, GLYHGB #### [facility] [address] [place] [address] [phone] Central Supply Tech: Sanju Eli MD Cholesterol in VLDL [Mass/Vol] NOT REPORTED Normal 1-30 [facility] Comment on above: Performed By: #### C BC, LIPR, BMP, GLYHGB #### [facility] [address] [place] [address] [id number] [employer] Supply Tech: Sanju Eli MD Troponinon 12-04-2018 Troponin I.cardiac [Mass/Vol] 6 ng/L Normal 0-22 [facility] Comment on above: Result Comment: High Sensitivity Troponin values cannot be compared with other Troponin methodologies. Patients with high levels of Biotin oral intake (i.e >5mg/day) may have falsely decreased Troponin levels. Samples collected within 8 hours of biotin intake may require additional information for diagnosis. Performed By: #### C DP, PT, TROPI, CMPX #### [address] [id number] Central Supply Tech: Sanju Eli MD XR ABDOMEN (KUB) (SINGLE [...] Jose Hoang MD 12/04/18 Final result Normal [facility] Basic Metabolic Profon 12-03 (cont.) Normal [facility] Comment on above: Result Comment: Aver age GFR for 30-39 years old: 107 mL/min/1.73sq m Chronic Kidney Disease: <60 mL/min/1.73sq m Kidney failure: <15 mL/min/1.73sq m eGFR calculated using average adult body mass. Additional eGFR calculator available at: http://www.Aqdot/multiple_crcl_2012.htm Performed By: #### C SHIVA ZHENG, BMP #### [facility] [address] [place] [address] [place] [address] Central Supply Tech: Alejandro Garcia MD Anion gap [Moles/Vol] 14 mmol/L Normal 9-17 [facility] Comment on above: Performed By: #### C SHIVA ZHENG BMP #### [address] [place] [address] Central Supply Tech: Alejandro Garcia MD BUN/CRE Ratio 10 Normal 9-20 [facility] Comment on above: Performed By: #### C SHIVA ZHENG, BMP #### [facility] [address] [place] [address] [place] [address] Central Supply Tech: Alejandro Garcia MD Calcium [Mass/Vol] 8.8 mg/dL Normal 8.6-10.4 [facility] Comment on above: Performed By: #### C SHIVA ZHENG, BMP #### [facility] [address] [place] [address] [place] [address] Central Supply Tech: Alejandro Garcia MD Chloride [Moles/Vol] 102 mmol/L Normal 98-107 [facility] Comment on above: Performed By: #### C DP, TROPI, BMP #### [facility] [address] [place] [address] Central Supply Tech: Alejandro Garcia MD CO2 [Moles/Vol] 23 mmol/L Normal 20-31 [facility] Comment on above: Performed By: #### C DP, TROPI, BMP #### [facility] [address] [place], [place] [phone] Central Supply Tech: Alejandro Garcia MD Creatinine [Mass/Vol] 1.12 mg/dL Normal 0.70-1.20 [facility] Comment on above: Performed By: #### C DP, TROPI, BMP #### [facility] [address] [place], [place] [id number] Central Supply Tech: Alejandro Garcia MD GFR, Amer >60 Normal >60 [facility] Comment on above: Performed By: #### C DP, TROPI, BMP #### [facility] [address] [place], [place] [phone] Central Supply Tech: Alejandro Garcia MD GFR,non Amer >60 Normal >60 [facility] Comment on above: Performed By: #### C DP, TROPI, BMP #### [facility] [address] [place], [place] [phone] Central Supply Tech: Alejandro Garcia MD Glucose [Mass/Vol] 78 mg/dL Normal 70-99 [facility] Comment on above: Performed By: #### C DP, TROPI, BMP #### [facility] [address] [place] [address] Central Supply Tech: Alejandro Garcia MD Potassium [Moles/Vol] 3.5 mmol/L Low 3.7-5.3 [facility] Comment on above: Performed By: #### C DP, TROPI, BMP #### [facility] [address] [place] [address] Central Supply Tech: Alejandro Garcia MD Sodium [Moles/Vol] 139 mmol/L Normal 135-144 [facility] Comment on above: Performed By: #### C DP, TROPI, BMP #### [facility] [address] [place] [address] Central Supply Tech: Alejandro Garcia MD Staging: Normal [facility] Comment on above: Result Comment: Stag e 1: Some kidney damage normal GFR Stage 2: Mild kidney damage GFR 60-89 Stage 3: Moderate kidney damage GFR 30-59 Stage 4: Severe kidney damage GFR 15-29 Stage 5: Severe kidney damage GFR <15 ESRD - chronic treatment by dialysis or transplant Performed By: #### C DP, TROPI, BMP #### [address] [place] [address] Central Supply Tech: Alejandro Garcia MD Urea nitrogen [Mass/Vol] 11 mg/dL Normal 6-20 [facility] Comment on above: Performed By: #### C DP, TROPI, BMP #### [facility] [address] [place] [address] Central Supply Tech: Alejandro Garcia MD CBC with Diffon 12-03-2018 Abs. Basophil <0.03 Normal 0.00-0.20 [facility] Comment on above: Performed By: #### C DP, PT, TROPI, CMPX #### [facility] [address] [place] [address] Central Supply Tech: Sanju Eli MD Abs.Imm.Granulocyte <0.03 Normal 0.00-0.30 [facility] Comment on above: Performed By: #### C DP, PT, TROPI, CMPX #### [facility] [employer] [address] [place] [address] Central Supply Tech: Sanju Eli MD Abs.Neutrophil (Seg) 2.31 k/uL Normal 1.50-8.10 [facility] Comment on above: Performed By: #### C DP, PT, TROPI, CMPX #### [place] [address] Central Supply Tech: Sanju Eli MD Basophils/100 WBC (Bld) 0 % Normal 0-2 [facility] Comment on above: Performed By: #### C DP, PT, TROPI, CMPX #### [place] [address] Central Supply Tech: Sanju Eli MD Eosinophils (Bld) [#/Vol] 0.17 10*3/uL Normal 0.00-0.44 [facility] Comment on above: Performed By: #### C DP, PT, TROPI, CMPX #### [place] [address] Central Supply Tech: Sanju Eli MD Eosinophils/100 WBC (Bld) 3 % Normal 1-4 [facility] Comment on above: Performed By: #### C DP, PT, TROPI, CMPX #### [place] [address] Central Supply Tech: Sanju Eli MD Immature granulocytes (Bld) [#/Vol] 0 % Normal 0 [facility] Comment on above: Performed By: #### C DP, PT, TROPI, CMPX #### [place] [address] Central Supply Tech: Sanju Eli MD Lymphocytes (Bld) [#/Vol] 2.02 10*3/uL Normal 1.10-3.70 [facility] Comment on above: Performed By: #### C DP, PT, TROPI, CMPX #### [address] [address] Central Supply Tech: Sanju Eli MD Lymphocytes/100 WBC (Bld) 39 % Normal 24-43 [facility] Comment on above: Performed By: #### C DP, PT, TROPI, CMPX #### [address] [address] Central Supply Tech: Sanju Eli MD Monocytes (Bld) [#/Vol] 0.64 10*3/uL Normal 0.10-1.20 [facility] Comment on above: Performed By: #### C DP, PT, TROPI, CMPX #### [address] [address] Central Supply Tech: Sanju Eli MD Monocytes/100 WBC (Bld) 12 % Normal 3-12 [facility] Comment on above: Performed By: #### C DP, PT, TROPI, CMPX #### [place] [address] Central Supply Tech: Sanju Eli MD Neutrophil (Seg) 46 % Normal 36-65 [facility] Comment on above: Performed By: #### C DP, PT, TROPI, CMPX #### [address] [address] Central Supply Tech: Sanju Eli MD RBC morphology finding Nom (Bld) ANISOCYTOSIS PRESENT Normal [facility] Comment on above: Performed By: #### C DP, PT, TROPI, CMPX #### [address] [address] Central Supply Tech: Sanju Eli MD Erythrocyte distribution width (RBC) [Ratio] 15.5 % High 11.8-14.4 [facility] Comment on above: Performed By: #### C DP, PT, TROPI, CMPX #### [address] [address] Central Supply Tech: Sanju Eli MD Hematocrit (Bld) [Volume fraction] 40.2 % Low 40.7-50.3 [facility] Comment on above: Performed By: #### C DP, PT, TROPI, CMPX #### [address] [address] Central Supply Tech: Sanju Eli MD Hemoglobin (Bld) [Mass/Vol] 12.8 g/dL Low 13.0-17.0 [facility] Comment on above: Performed By: #### C DP, PT, TROPI, CMPX #### [address] [address] Central Supply Tech: Sanju Eli MD MCH (RBC) [Entitic mass] 29.6 pg Normal 25.2-33.5 [facility] Comment on above: Performed By: #### C DP, PT, TROPI, CMPX #### [address] [address] Central Supply Tech: Sanju Eli MD MCHC (RBC) [Mass/Vol] 31.8 g/dL Normal 28.4-34.8 [facility] Comment on above: Performed By: #### C DP, PT, TROPI, CMPX #### [place] [address] Central Supply Tech: Sanju Eli MD MCV (RBC) [Entitic vol] 92.8 fL Normal 82.6-102.9 [facility] Comment on above: Performed By: #### C DP, PT, TROPI, CMPX #### [address] [address] Central Supply Tech: Sanju Eli MD NRBC Automated 0.0 per 100 WBC Normal 0.0 [facility] Comment on above: Performed By: #### C DP, PT, TROPI, CMPX #### [address] [address] Central Supply Tech: Sanju Eli MD Platelet mean volume (Bld) [Entitic vol] 9.2 fL Normal 8.1-13.5 [facility] Comment on above: Performed By: #### C DP, PT, TROPI, CMPX #### [address] [address] Central Supply Tech: Sanju Eli MD Platelets (Bld) [#/Vol] 208 10*3/uL Normal 138-453 [facility] Comment on above: Performed By: #### C DP, PT, TROPI, CMPX #### [address] [address] Central Supply Tech: Sanju Eli MD RBC (Bld) [#/Vol] 4.33 10*6/uL Normal 4.21-5.77 [facility] Comment on above: Performed By: #### C DP, PT, TROPI, CMPX #### [address] [address] Central Supply Tech: Sanju Eli MD WBC (Bld) [#/Vol] 5.2 10*3/uL Normal 3.5-11.3 [facility] Comment on above: Performed By: #### C DP, PT, TROPI, CMPX #### [address] [address] Central Supply Tech: Sanju Eli MD Auto Diff Performed NOT REPORTED Normal [facility] Comment on above: Performed By: #### C DP, PT, TROPI, CMPX #### [address] [address] Central Supply Tech: Sanju Eli MD Platelets (Bld) [#/Vol] NOT REPORTED Normal [facility] Comment on above: Performed By: #### C DP, PT, TROPI, CMPX #### [address] [address] Central Supply Tech: Sanju Eli MD WBC Morphology NOT REPORTED Normal [facility] Comment on above: Performed By: #### C DP, PT, TROPI, CMPX #### [facility] [address] [place] [address] Central Supply Tech: Sanju Eli MD Abs. Basophil <0.03 Normal 0.00-0.20 [facility] Comment on above: Performed By: #### C DP, TROPI, BMP #### [address] [place] [address] Central Supply Tech: Alejandro Garcia MD Abs.Imm.Granulocyte <0.03 Normal 0.00-0.30 [facility] Comment on above: Performed By: #### C DP, TROPI, BMP #### [address] [place] [address] Central Supply Tech: Alejandro Garcia MD Abs.Neutrophil (Seg) 3.26 k/uL Normal 1.50-8.10 [facility] Comment on above: Performed By: #### C DP, TROPI, BMP #### [address] [place] [address] Central Supply Tech: Alejandro Garcia MD Basophils/100 WBC (Bld) 0 % Normal 0-2 [facility] Comment on above: Performed By: #### C DP, TROPI, BMP #### [address] [place], [place] [address] Central Supply Tech: Alejandro Garcia MD Eosinophils (Bld) [#/Vol] 0.13 10*3/uL Normal 0.00-0.44 [facility] Comment on above: Performed By: #### C DP, TROPI, BMP #### [address] [place] [id number] Central Supply Tech: Alejandro Garcia MD Eosinophils/100 WBC (Bld) 2 % Normal 1-4 [facility] Comment on above: Performed By: #### C DP, TROPI, BMP #### [facility] [address] [place], [facility] Central Supply Tech: Alejandro Garcia MD Erythrocyte distribution width (RBC) [Ratio] 15.2 % High 11.8-14.4 [facility] Comment on above: Performed By: #### C MATTHEW ZHENGI, BMP #### [facility] [address] [place], [facility] Central Supply Tech: Alejandro Garcia MD Hematocrit (Bld) [Volume fraction] 39.0 % Low 40.7-50.3 [facility] Comment on above: Performed By: #### C SHIVA ZHENG, BMP #### [facility] [address] [place] [phone] Central Supply Tech: Alejandro Garcia MD Hemoglobin (Bld) [Mass/Vol] 12.8 g/dL Low 13.0-17.0 [facility] Comment on above: Performed By: #### C N[facility] #### [facility] [address] [place], [place] [address] Central Supply Tech: Alejandro Garcia MD Immature granulocytes (Bld) [#/Vol] 0 % Normal 0 [facility] Comment on above: Performed By: #### C MATTHEW ZHENGI, BMP #### [address] [place], [facility] Central Supply Tech: Alejandro Garcia MD Lymphocytes (Bld) [#/Vol] 1.93 10*3/uL Normal 1.10-3.70 [facility] Comment on above: Performed By: #### C MATTHEW ZHENGI, BMP #### [facility] [address] [place] [phone] Central Supply Tech: Alejandro Garcia MD Lymphocytes/100 WBC (Bld) 33 % Normal 24-43 [facility] Comment on above: Performed By: #### C MATTHEW ZHENGI, BMP #### [facility] [address] [place] [facility] Central Supply Tech: Alejandro Garcia MD MCH (RBC) [Entitic mass] 29.9 pg Normal 25.2-33.5 [facility] Comment on above: Performed By: #### C DP, TROPI, BMP #### [facility] [address] [place] [phone] Central Supply Tech: Alejandro Garcia MD MCHC (RBC) [Mass/Vol] 32.8 g/dL Normal 28.4-34.8 [facility] Comment on above: Performed By: #### C DP, TROPI, BMP #### [address] [place] [address] Central Supply Tech: Alejandro Garcia MD MCV (RBC) [Entitic vol] 91.1 fL Normal 82.6-102.9 [facility] Comment on above: Performed By: #### C DP, TROPI, BMP #### [address] [place] [id number] Central Supply Tech: Alejandro Garcia MD Monocytes (Bld) [#/Vol] 0.57 10*3/uL Normal 0.10-1.20 [facility] Comment on above: Performed By: #### C DP, TROPI, BMP #### [address] [place], [place] [address] Central Supply Tech: Alejandro Garcia MD Monocytes/100 WBC (Bld) 10 % Normal 3-12 [facility] Comment on above: Performed By: #### C DP, TROPI, BMP #### [facility] [address] [place], [facility] Central Supply Tech: Alejandro Garcia MD Neutrophil (Seg) 55 % Normal 36-65 [facility] Comment on above: Performed By: #### C DP, TROPI, BMP #### [facility] [address] [place], [facility] Central Supply Tech: Alejandro Garcia MD NRBC Automated 0.0 per 100 WBC Normal 0.0 [facility] Comment on above: Performed By: #### C SHIVA ZHENG, BMP #### [facility] [address] [place], [place] [phone] Central Supply Tech: Alejandro Garcia MD Platelet mean volume (Bld) [Entitic vol] 9.0 fL Normal 8.1-13.5 [facility] Comment on above: Performed By: #### C DP TROPI, BMP #### [facility] [address] [place] [address] Central Supply Tech: Alejandro Garcia MD Platelets (Bld) [#/Vol] 211 10*3/uL Normal 138-453 [facility] Comment on above: Performed By: #### C MATTHEW ZHENGI, BMP #### [facility] [address] [place], [place] [address] Central Supply Tech: Alejandro Garcia MD RBC (Bld) [#/Vol] 4.28 10*6/uL Normal 4.21-5.77 [facility] Comment on above: Performed By: #### C SHIVA ZHENG, BMP #### [facility] [address] [place] [address] Central Supply Tech: Alejandro Garcia MD WBC (Bld) [#/Vol] 5.9 10*3/uL Normal 3.5-11.3 [facility] Comment on above: Performed By: #### C NORM TROPI, BMP #### [facility] [address] [place] [address] Central Supply Tech: Alejandro Garcia MD Auto Diff Performed NOT REPORTED Normal [facility] Comment on above: Performed By: #### C DP, TROPI, BMP #### [facility] [address] [place] [address] Central Supply Tech: Alejandro Garcia MD Platelets (Bld) [#/Vol] NOT REPORTED Normal [facility] Comment on above: Performed By: #### C DP, TROPI, BMP #### [facility] [address] [place] [address] Central Supply Tech: Alejandro Garcia MD RBC morphology finding Nom (Bld) NOT REPORTED Normal [facility] Comment on above: Performed By: #### C DP, TROPI, BMP #### [facility] [address] [place] [address] Central Supply Tech: Alejandro Garcia MD WBC Morphology NOT REPORTED Normal [facility] Comment on above: Performed By: #### C DP, TROPI, BMP #### [facility] [address] [place] [address] Central Supply Tech: Alejandro Garcia MD CTA HEAD W WO [...] Ruy Sears MD 12/03/18 Final result Normal [facility] CTA NECK W WO CONTRASTon CTA [...] Ruy Sears MD 12/03/18 Final result Normal [facility] Comp Metabolic Pr/rfx MGon 0 12-03-2018 BUN/CRE Ratio NOT REPORTED Normal 03-04 [facility] Comment on above: Performed By: #### C DP, PT, TROPI, CMPX #### [address] [address] Central Supply Tech: Sanju Eli MD Staging: NOT REPORTED Normal [facility] Comment on above: Performed By: #### C DP, PT, TROPI, CMPX #### [address] [address] [employer] Supply Tech: Sanju Eli MD PTon 12-03-2018 INR Coag (PPP) [Relative time] 1.1 {INR} Normal [facility] Comment on above: Result Comment: Therapeutic Range: Moderate Anticoagulant Intensity: INR = 2.0-3.0 High Anticoagulant Intensity: INR = 2.5-3.5 Performed By: #### C DP, PT, TROPI, CMPX #### [address] [address] Central Supply Tech: Sanju Eli MD PT Coag (PPP) [Time] 11.8 s Normal 9.0-12.0 [facility] Comment on above: Performed By: #### C DP, PT, TROPI, CMPX #### [address] [address] Central Supply Tech: Sanju Eli MD Tox Scr, Bld, EDon 9 Toxic Tricyclic Sc,Bl Negative Normal NEG [facility] Comment on above: Performed By: #### E DTOX #### [address] [address] Central Supply Tech: Sanju Eli MD [facility] [address] [place] [address] [place] [address] Central Supply Tech: Alejandro Garcia MD Ethanol [Mass/Vol] 49 mg/dL High <10 [facility] Comment on above: Performed By: #### E DTOX #### [place] [address] [place] [address] Central Supply Tech: Sanju Eli MD [facility] [address] [place], [place] [phone] Central Supply Tech: Alejandro Garcia MD Ethanol percent 0.049 % High <0.010 [facility] Comment on above: Performed By: #### E DTOX #### [address] [address] Central Supply Tech: Sanju Eli MD [facility] [address] [place] [phone] Central Supply Tech: Alejandro Garcia MD Acetaminophen [Mass/Vol] <5 Low 10-30 [facility] Comment on above: Performed By: #### E DTOX #### [address] [address] Central Supply Tech: Sanju Eli MD [facility] [address] [place] [address] [place] [address] Central Supply Tech: Alejandro Garcia MD Salicylate <1 Low 3-10 [facility] Comment on above: Performed By: #### E DTOX #### [address] [address] Central Supply Tech: Sanju Eli MD [facility] [address] [place] [phone] [employer] Supply Tech: Alejandro Garcia MD Troponinon 12-03-2018 Troponin I.cardiac [Mass/Vol] NOT REPORTED Normal [facility] Comment on above: Performed By: #### C DP, PT, TROPI, CMPX #### [place] [address] [place] [address] Central Supply Tech: Sanju Eli MD Troponin I.cardiac [Mass/Vol] ng/mL Normal <0.03 [facility] Comment on above: Result Comment: Trop onin T results cannot be compared to Troponin-I results. Performed By: #### C DP, TROPI, BMP #### [facility] [address] [place] [address] Central Supply Tech: Alejandro Garcia MD Troponin I.cardiac [Mass/Vol] Normal [facility] Comment on above: Result Comment: Refe [...] By: #### C DP, TROPI, BMP #### [facility] [address] [place] [address] Central Supply Tech: Alejandro Garcia MD Troponin I.cardiac [Mass/Vol] NOT REPORTED Normal 0-22 [facility] Comment on above: Performed By: #### C DP TROPI, BMP #### [facility] [address] [place] [address] Central Supply Tech: Alejandro Garcia MD XR CHEST PORTABLEon 12-04-19 XR CHEST PORTABLE EXAMINATION: ONE XRAY VIEW [...] Claudia Mcclain MD 12/03/18 Final result Normal [facility] XR CHEST PORTABLE EXAMINATION: ONE [...] Ovidio Lyn MD 12/03/18 Final result Normal [facility] Vital Signs Date Time Vital Sign Value Performing Clinician Facility 01-30-2025 10:51-0400 Body height 180.3 cm Jenniferoneyda Bender [employer] SUPER[employer]OR[employer]PER[employer] Work Phone: [facility] 01-30-2025 10:51-0400 Diastolic blood pressure 80 mm[Hg] Jennifer Bender [employer] P[employer] SUPERVISOR[employer] OPERATOR Work Phone: [facility] 01-30-2025 10:51-0400 Heart rate 87 /min Jennifer Bender [employer]PL[employer] P[employer] SUPERVISOR[employer]IPMENT OPERATOR Work Phone: [facility] 01-30-2025 10:51-0400 Systolic blood pressure 139 mm[Hg] Jenniferoneyda Bender [employer]PL[employer] P[employer] SUPERVISOR[employer] E[employer]IPMENT OPERATOR Work Phone: [facility] 01-19-2025 11:02-0400 Body height 180.3 cm Valdemar Garcia MD Work Phone: [facility] 01-19-2025 11:02-0400 Body mass index (BMI) [Ratio] 31.7 kg/m2 Valdemar Garcia MD Work Phone: [facility] 01-19-2025 11:02-0400 Body temperature 97.7 [degF] Valdemar Garcia MD Work Phone: [facility] 01-19-2025 11:02-0400 Body weight 103.06 kg Valdemar Garcia MD Work Phone: [facility] 01-19-2025 11:02-0400 Diastolic blood pressure 90 mm[Hg] Valdemar Garcia MD Work Phone: [facility] 01-19-2025 11:02-0400 Heart rate 75 /min Valdemar Garcia MD Work Phone: [facility] 01-19-2025 11:02-0400 Respiratory rate 18 /min Valdemar Garcia MD Work Phone: [facility] 01-19-2025 11:02-0400 SaO2% (BldA) [Mass fraction] 97 % Valdemar Garcia MD Work Phone: [facility] 01-19-2025 11:02-0400 Systolic blood pressure 150 mm[Hg] Valdemar Garcia MD Work Phone: [facility] 01-10-2025 10:58-0400 Body height 185.4 cm Scot Pang MD Work Phone: [facility] 01-10-2025 10:58-0400 Body mass index (BMI) [Ratio] 29.87 kg/m2 Scot Pang MD Work Phone: [facility] 01-10-2025 10:58-0400 Body weight 102.69 kg Scot Pang MD Work Phone: [facility] 12-15-2024 12:34-0400 Body height 185.4 cm Valdemar Garcia MD Work Phone: [facility] 12-15-2024 12:34-0400 Body mass index (BMI) [Ratio] 29.19 kg/m2 Valdemar Garcia MD Work Phone: [facility] 12-15-2024 12:34-0400 Body temperature 97.9 [degF] Valdemar Garcia MD [facility] [employer] 12-15-2024 12:34-0400 Body weight 100.34 kg Valdemar Garcia MD [facility] [employer] [facility] 12-15-2024 12:34-0400 Diastolic blood pressure 74 mm[Hg] Valdemar Garcia MD [facility] [employer] 12-15-2024 12:34-0400 Heart rate 95 /min Valdemar Garcia MD [facility] 12-15-2024 12:34-0400 Respiratory rate 16 /min Valdemar Garcia MD Work Phone: [facility] 12-15-2024 12:34-0400 SaO2% (BldA) [Mass fraction] 97 % Valdemar Garcia MD Work Phone: [facility] [employer] 12-15-2024 12:34-0400 Systolic blood pressure 143 mm[Hg] Valdemar Garcia MD Work Phone: [facility] 11-11-2024 08:43-0400 Body height 185.4 cm Valdemar Garcia MD Work Phone: [facility] 11-11-2024 08:43-0400 Body mass index (BMI) [Ratio] 27.9 kg/m2 Valdemar Garcia MD Work Phone: [facility] 11-11-2024 08:43-0400 Body temperature 97.5 [degF] Valdemar Garcia MD Work Phone: [facility] 11-11-2024 08:43-0400 Body weight 95.89 kg Valdemar Garcia MD Work [facility] 11-11-2024 08:43-0400 Diastolic blood pressure 72 mm[Hg] Valdemar Garcia MD Work Phone: [facility] 11-11-2024 08:43-0400 Heart rate 98 /min Valdemar Garcia MD Work Phone: [facility] 11-11-2024 08:43-0400 Respiratory rate 16 /min Valdemar Garcia MD Work Phone: [facility] 11-11-2024 08:43-0400 SaO2% (BldA) [Mass fraction] 97 % Valdemar Garcia MD Work Phone: [facility] 11-11-2024 08:43-0400 Systolic blood pressure 130 mm[Hg] Valdemar Garcia MD Work Phone: [facility] 10-20-2024 15:36-0400 Body height 185.4 cm Shanthi Lu AIRPLANE PILOT SUPERVISOR-LONGSHORE EQUIPMENT OPERATOR Work Phone: [facility] 10-20-2024 15:36-0400 Body mass index (BMI) [Ratio] 27.24 kg/m2 Shanthi Lu AIRPLANE PILOT SUPERVISOR-[employer]ORE EQUIPMENT OPERATOR Work Phone: [facility] 10-20-2024 15:36-0400 Body temperature 97.9 [degF] Shanthi Lu AIRPLANE PILOT SUPERVISOR-LONGSHORE EQUIPMENT OPERATOR Work Phone: [facility] 10-20-2024 15:36-0400 Body weight 93.62 kg Shanthi Lu AIRPLANE PILOT SUPERVISOR-[employer]SHORE EQUIPMENT OPERATOR Work Phone: [facility] 10-20-2024 15:36-0400 Diastolic blood pressure 60 mm[Hg] Shanthi Lu AIRPLANE PILOT SUPERVISOR-LONGSHORE EQUIPMENT OPERATOR Work Phone: [facility] 10-20-2024 15:36-0400 Heart rate 110 /min Shanthi Lu AIRPLANE PILOT SUPERVISOR-LONGSHORE EQUIPMENT OPERATOR Work Phone: [facility] 10-20-2024 15:36-0400 Respiratory rate 20 /min Shanthi Lu AIRPLANE PILOT SUPERVISOR-[employer]SHORE EQUIPMENT OPERATOR Work Phone: [facility] 10-20-2024 15:36-0400 SaO2% (BldA) [Mass fraction] 97 % Shanthi Lu AIRPLANE PILOT SUPERVISOR-[employer]ORE EQUIPMENT OPERATOR Work Phone: [facility] 10-20-2024 15:36-0400 Systolic blood pressure 100 mm[Hg] Shnathi Lu APRN-[employer]SHORE EQUIPMENT OPERATOR Work Phone: [facility] 07-25-2024 13:05-0500 Body height 185.4 cm Shanthi Lu APRN-LONGSHORE EQUIPMENT OPERATOR Work Phone: [facility] 07-25-2024 13:05-0500 Body mass index (BMI) [Ratio] 23.41 kg/m2 Shanthi Lu APRN-[employer]SH[employer] EQUIPMENT OPERATOR Work Phone: [facility] 07-25-2024 13:05-0500 Body temperature 97.9 [degF] Shanthi Lu APRN-[employer]SHORE EQUIPMENT OPERATOR Work Phone: [facility] 07-25-2024 13:05-0500 Body weight 80.47 kg Shanthi Lu APRN-LONGSHORE EQUIPMENT OPERATOR Work Phone: [facility] 07-25-2024 13:05-0500 Diastolic blood pressure 60 mm[Hg] Shanthi Lu APRN-[employer]SHORE EQUIPMENT OPERATOR Work Phone: [facility] 07-25-2024 13:05-0500 Heart rate 85 /min Shanthi Lu APRN-[employer]SHORE EQUIPMENT OPERATOR Work Phone: [facility] 07-25-2024 13:05-0500 Respiratory rate 18 /min Shanthi Lu APRN-[employer]SHORE EQUIPMENT OPERATOR Work Phone: [facility] 07-25-2024 13:05-0500 SaO2% (BldA) [Mass fraction] 96 % Shanthi Lu APRN-[employer]SHORE EQUIPMENT OPERATOR Work Phone: [facility] 07-25-2024 13:05-0500 Systolic blood pressure 110 mm[Hg] Shanthi Lu AIRPLANE PILOT SUPERVISOR-[employer]SHORE EQUIPMENT OPERATOR Work Phone: [facility] 02-01-2024 14:19-0400 [facility] 02-01-2024 14:19-0400 Body mass index (BMI) [Ratio] 29.99 kg/m2 [facility] [address] [place] [address] 02-01-2024 14:190400 Body temperature 98.2 [degF] [address] 02-01-2024 14:190400 Body weight 103.1 kg [facility] [address] [place] [address] 02-01-2024 14:19-0400 Diastolic blood pressure 90 mm[Hg] [facility] [address] [place] [address] 02-01-2024 14:19-0400 Heart rate 92 /min [facility] [address] [place] [address] 02-01-2024 14:190400 Respiratory rate 16 /min [facility] [address] [place] [address] 02-01-2024 14:190400 SaO2% (BldA) [Mass fraction] 96 % [address] 02-01-2024 14:19-0400 Systolic blood pressure 141 mm[Hg] [address] 01-25-2024 10:27-0400 Body height 182.9 cm Maile Burr MD Work Phone: [facility] 01-25-2024 10:27-0400 Body mass index (BMI) [Ratio] 30.98 kg/m2 Maile Burr MD Work Phone: [facility] 01-25-2024 10:27-0400 Body temperature 98.2 [degF] Maile Burr MD Work Phone: [facility] 01-25-2024 10:27-0400 Body weight 103.6 kg Maile Burr MD Work Phone: [facility] 01-25-2024 10:27-0400 Respiratory rate 18 /min Maile Burr MD Work Phone: [facility] 01-22-2024 15:14-0400 Body height 185.4 cm Simran Nelson APRN.CNP Work Phone: [facility] 01-22-2024 15:14-0400 Body mass index (BMI) [Ratio] 29.72 kg/m2 Simran Bundridge AIRPLANE PILOT SUPERVISOR.LONGSHORE EQUIPMENT OPERATOR Work Phone: [facility] 01-22-2024 15:14-0400 Body temperature 97.11 [degF] Simran Bundridge AIRPLANE PILOT SUPERVISOR.[employer]SHORE EQUIPMENT OPERATOR Work Phone: [facility] 01-22-2024 15:14-0400 Body weight 102.15 kg Simran Bundridge AIRPLANE PILOT SUPERVISOR.[employer]ORE EQUIPMENT OPERATOR Work Phone: [facility] 01-22-2024 15:14-0400 Diastolic blood pressure 91 mm[Hg] Simran Bundridge AIRPLANE PILOT SUPERVISOR.[employer]SHORE EQUIPMENT OPERATOR Work Phone: [facility] 01-22-2024 15:14-0400 Heart rate 99 /min Simran Bundridge AIRPLANE PILOT SUPERVISOR.[employer]SHORE EQUIPMENT OPERATOR Work Phone: [facility] 01-22-2024 15:14-0400 Respiratory rate 16 /min Simran Bundridge AIRPLANE PILOT SUPERVISOR.[employer]SHORE EQUIPMENT OPERATOR Work Phone: [facility] 01-22-2024 15:14-0400 SaO2% (BldA) [Mass fraction] 95 % Simran Bundridge AIRPLANE PILOT SUPERVISOR.[employer]SHORE EQUIPMENT OPERATOR Work Phone: [facility] 01-22-2024 15:14-0400 Systolic blood pressure 131 mm[Hg] Simran Bundridge AIRPLANE PILOT SUPERVISOR.[employer]SHORE EQUIPMENT OPERATOR Work Phone: [facility] 12-18-2023 14:19-0400 Body mass index (BMI) [Ratio] 27.96 kg/m2 Rich Hill MD Work Phone: [facility] 12-18-2023 14:19-0400 Body temperature 97.81 [degF] Rich Hill MD Work Phone: [facility] 12-18-2023 14:19-0400 Body weight 96.1 kg Rich Hill MD Work Phone: [facility] 12-18-2023 14:19-0400 Diastolic blood pressure 79 mm[Hg] Rich Hill MD Work Phone: [facility] 12-18-2023 14:19-0400 Heart rate 67 /min Rich Hill MD Work Phone: [facility] 12-18-2023 14:19-0400 Respiratory rate 16 /min Rich Hill MD Work Phone: [facility] 12-18-2023 14:19-0400 SaO2% (BldA) [Mass fraction] 100 % Rich Hill MD Work Phone: [facility] 12-18-2023 14:19-0400 Systolic blood pressure 125 mm[Hg] Rich Hill MD Work Phone: [facility] 12-15-2023 13:51-0400 Body height 184.5 cm Shanthi Lu AIRPLANE PILOT SUPERVISOR-[employer]SHORE EQUIPMENT OPERATOR Work Phone: [facility] 12-15-2023 13:51-0400 Body mass index (BMI) [Ratio] 27.98 kg/m2 Shanthi Lu AIRPLANE PILOT SUPERVISOR-[employer]SHORE EQUIPMENT OPERATOR Work Phone: [facility] 12-15-2023 13:51-0400 Body temperature 98.1 [degF] Shanthi Lu AIRPLANE PILOT SUPERVISOR-[employer]SHORE EQUIPMENT OPERATOR Work Phone: [facility] 12-15-2023 13:51-0400 Body weight 95.25 kg Shanthi Lu AIRPLANE PILOT SUPERVISOR-[employer]SHORE EQUIPMENT OPERATOR Work Phone: [facility] 12-15-2023 13:51-0400 Diastolic blood pressure 72 mm[Hg] Shanthi Lu AIRPLANE PILOT SUPERVISOR-LONGSHORE EQUIPMENT OPERATOR Work Phone: [facility] 12-15-2023 13:51-0400 Heart rate 86 /min Shanthi Lu AIRPLANE PILOT SUPERVISOR-[employer]SHORE EQUIPMENT OPERATOR Work Phone: [facility] 12-15-2023 13:51-0400 Respiratory rate 20 /min Shanthi Lu AIRPLANE PILOT SUPERVISOR-[employer]SHORE EQUIPMENT OPERATOR Work Phone: [facility] 12-15-2023 13:51-0400 SaO2% (BldA) [Mass fraction] 97 % Shanthi Lu AIRPLANE PILOT SUPERVISOR-[employer]SHORE EQUIPMENT OPERATOR Work Phone: [facility] 12-15-2023 13:51-0400 Systolic blood pressure 122 mm[Hg] Shanthi Lu AIRPLANE PILOT SUPERVISOR-LONGSHORE EQUIPMENT OPERATOR Work Phone: [facility] 12-09-2023 09:43-0400 Body mass index (BMI) [Ratio] 28.51 kg/m2 Tobi Plata MD Work Phone: [facility] 12-09-2023 09:43-0400 Body temperature 98.29 [degF] Tobi Plata MD Work Phone: [facility] 12-09-2023 09:43-0400 Body weight 98 kg Tobi Plata MD Work Phone: [facility] 12-09-2023 09:43-0400 Diastolic blood pressure 82 mm[Hg] Tobi Plata MD Work Phone: [facility] 12-09-2023 09:43-0400 Heart rate 84 /min Tobi Plata MD Work Phone: [facility] 12-09-2023 09:43-0400 Respiratory rate 20 /min Tobi Plata MD Work Phone: [facility] 12-09-2023 09:43-0400 SaO2% (BldA) [Mass fraction] 98 % Tobi Palta MD Work Phone: [facility] Comment on above: 12-09-2023 09:43-0400 Systolic blood pressure 131 mm[Hg] Tobi Plata MD Work Phone: [facility] 10-19-2023 14:10-0400 Diastolic blood pressure 78 mm[Hg] Shanthi Lu AIRPLANE PILOT SUPERVISOR-[employer]SHORE EQUIPMENT OPERATOR Work Phone: [facility] 10-19-2023 14:10-0400 Systolic blood pressure 120 mm[Hg] Shanthi Lu AIRPLANE PILOT SUPERVISOR-LONGSHORE EQUIPMENT OPERATOR Work Phone: [facility] 10-19-2023 14:08-0400 Body height 184.5 cm Shanthi Lu APRN-[employer]SHORE EQUIPMENT OPERATOR Work Phone: [facility] 10-19-2023 14:08-0400 Body mass index (BMI) [Ratio] 27.92 kg/m2 Shanthi Lu AIRPLANE PILOT SUPERVISOR-[employer]SHORE EQUIPMENT OPERATOR Work Phone: [facility] 10-19-2023 14:08-0400 Body temperature 97.5 [degF] Shanthi Lu APRN-[employer]SHORE EQUIPMENT OPERATOR Work Phone: [facility] 10-19-2023 14:08-0400 Body weight 95.03 kg Shanthi Lu APRN-HERACLIO Work Phone: [facility] 10-19-2023 14:08-0400 Heart rate 87 /min Shanthi Lu APRN-[employer]SH[employer] EQUIPMENT OPERATOR Work Phone: [facility] 10-19-2023 14:08-0400 Respiratory rate 24 /min Shanthi Lu APRN-LONGSHORE EQUIPMENT OPERATOR Work Phone: [facility] 10-19-2023 14:08-0400 SaO2% (BldA) [Mass fraction] 94 % Shanthi Lu APRN-[employer]SHORE EQUIPMENT OPERATOR Work Phone: [facility] 08-17-2023 13:30-0500 Body height 185.4 cm Rich Hill MD Work Phone: [facility] 08-17-2023 13:30-0500 Body temperature 97.7 [degF] Rich Hill MD Work Phone: [facility] 08-17-2023 13:30-0500 Body weight 88.1 kg Rich Hill MD Work Phone: [facility] 08-17-2023 13:30-0500 Diastolic blood pressure 61 mm[Hg] Rich Hill MD Work Phone: [facility] 08-17-2023 13:30-0500 Heart rate 65 /min Rich Hill MD Work Phone: [facility] 08-17-2023 13:30-0500 Respiratory rate 16 /min Rich Hill MD Work Phone: [facility] 08-17-2023 13:30-0500 SaO2% (BldA) [Mass fraction] 100 % Rich Hill MD Work Phone: [facility] 08-17-2023 13:30-0500 Systolic blood pressure 116 mm[Hg] Rich Hill MD Work Phone: [facility] 08-11-2023 14:41-0500 Body height 185.4 cm Simran Bundridge AIRPLANE PILOT SUPERVISOR.[employer]SHORE EQUIPMENT OPERATOR Work Phone: [facility] 08-11-2023 14:41-0500 Body temperature 97.9 [degF] Simran Bundridge AIRPLANE PILOT SUPERVISOR.LONGSHORE EQUIPMENT OPERATOR Work Phone: [facility] 08-11-2023 14:41-0500 Body weight 84.2 kg Simran Bundridge AIRPLANE PILOT SUPERVISOR.LONGSHORE EQUIPMENT OPERATOR Work Phone: [facility] 08-11-2023 14:41-0500 Diastolic blood pressure 71 mm[Hg] Simran Bundridge AIRPLANE PILOT SUPERVISOR.LONGSHORE EQUIPMENT OPERATOR Work Phone: [facility] 08-11-2023 14:41-0500 Heart rate 67 /min Simran Bundridge AIRPLANE PILOT SUPERVISOR.LONGSHORE EQUIPMENT OPERATOR Work Phone: [facility] 08-11-2023 14:41-0500 Respiratory rate 16 /min Simran Bundridge AIRPLANE PILOT SUPERVISOR.LONGSHORE EQUIPMENT OPERATOR Work Phone: [facility] 08-11-2023 14:41-0500 SaO2% (BldA) [Mass fraction] 100 % Simran Bundridge AIRPLANE PILOT SUPERVISOR.LONGSHORE EQUIPMENT OPERATOR Work Phone: [facility] 08-11-2023 14:41-0500 Systolic blood pressure 129 mm[Hg] Simran Bundridge AIRPLANE PILOT SUPERVISOR.LONGSHORE EQUIPMENT OPERATOR Work Phone: [facility] 07-29-2023 15:11-0500 Body height 185.4 cm Rich Hill MD Work Phone: [facility] 07-29-2023 15:11-0500 Body temperature 97 [degF] Rich Hill MD Work Phone: [facility] 07-29-2023 15:11-0500 Body weight 87.3 kg Rich Hill MD Work Phone: [facility] 07-29-2023 15:11-0500 Diastolic blood pressure 67 mm[Hg] Rich Hill MD Work Phone: [facility] 07-29-2023 15:11-0500 Heart rate 59 /min Rich Hill MD Work Phone: [facility] 07-29-2023 15:11-0500 Respiratory rate 16 /min Rich Hill MD Work Phone: [facility] 07-29-2023 15:11-0500 SaO2% (BldA) [Mass fraction] 99 % Rich Hill MD Work Phone: [facility] 07-29-2023 15:11-0500 Systolic blood pressure 125 mm[Hg] Rich Hill MD Work Phone: [facility] Encounters Encounter Date Encounter Type Care Provider Facility Start: 01-30-2025 End: 01-30-2025 Office outpatient visit 10 minutes Jennifer Bender AIRPLANE PILOT SUPERVISOR-[employer] EQUIPMENT OPERATOR Work Phone: [facility] Comment on above: Lymphadenopathy (Sherice krystal Dx) Start: 01-30-2025 End: 01-30-2025 ambulatory JENNIFER BENDER [facility] Start: 01-19-2025 End: 02-01-2025 Documentation procedure Che [facility] Comment on above: 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) Start: 01-19-2025 End: 01-19-2025 Office outpatient visit 25 minutes Valdemar Garcia MD Work Phone: Jovita Rand [facility] - Medical Oncology Comment on above: 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); 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); Inguinal lymphadenopathy Start: 01-19-2025 End: 01-19-2025 ambulatory VALDEMAR Lopez [facility] Start: 01-16-2025 End: 01-16-2025 Evaluation and management of inpatient [facility] Start: 01-11-2025 End: 01-11-2025 Patient encounter procedure [facility] Pre-Admission Testing 1 [facility] - Pre Admit Comment on above: Preop examination (P rimary Dx) Start: 01-11-2025 End: 01-11-2025 Preprocedural examination done Pm 1 [facility] Start: 01-11-2025 End: 01-11-2025 ambulatory DILCIA Hugo [facility] Start: 01-11-2025 Encounter for other preprocedural examination [facility] Start: 01-10-2025 End: 01-10-2025 Office outpatient new 30 minutes Scot Pang MD Work Phone: [facility] General [facility] Comment on above: 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); Abnormal findings on imaging test; 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) Start: 01-10-2025 End: 01-10-2025 ambulatory [facility] Start: 12-30-2024 End: 12-30-2024 Orders Only Altagracia Rand [facility] - Medical Oncology Comment on above: 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); Abnormal findings on imaging test; 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) Start: 12-22-2024 End: 12-22-2024 [facility] Start: 12-15-2024 End: 12-15-2024 Documentation procedure Che Moreno [facility] - Medical Oncology Start: 12-15-2024 End: 12-15-2024 Office outpatient visit 25 minutes Valdemar Garcia MD Work Phone: Jovita Rand [facility] - Medical Oncology Comment on above: 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) (Primary Dx); 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) Start: 12-15-2024 End: 12-15-2024 [facility] Start: 12-02-2024 End: 12-02-2024 [facility] Start: 11-25-2024 End: 11-25-2024 [facility] Start: 11-11-2024 End: 11-11-2024 Office outpatient new 60 minutes Valdemar Garcia MD Work Phone: Jovita Rand [facility] - Medical Oncology Comment on above: 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 Start: 09-26-2024 End: 09-26-2024 Telephone encounter Scanning Provider External [facility] Medical Oncology Start: 09-14-2024 End: 09-14-2024 Telephone encounter Rich Hill MD Work Phone: Hematology/Oncology Comment on above: Records faxed Start: 09-13-2024 End: 09-13-2024 Documentation procedure Bina Johnson RN [facility] Medical On[facility] Start: 08-12-2024 End: 08-12-2024 ambulatory [facility] Comment on above: Toxoplasmosis; Chorioretinitis of both eyes Start: 08-12-2024 End: 08-12-2024 Office outpatient new 45 minutes Fortunato Balderrama MD Work Phone: [facility] Comment on above: 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 Start: 03-28-2024 End: 03-28-2024 Refill Jael Dez JOAN [facility] Comment on above: Chronic pain syndrom e; Chronic left hip pain Start: 02-16-2024 End: 02-18-2024 Telephone encounter Rich Hill MD Work Phone: Hematology/Oncology Comment on above: Lab Orders Start: 02-02-2024 End: 02-02-2024 Evaluation and management of inpatient [facility] Start: 02-02-2024 End: 02-02-2024 [facility] Start: 02-01-2024 End: 02-01-2024 Patient encounter procedure [facility] Provider 7 Christine Nino [facility] Comment on above: Pre-op testing (Prim dorota Dx) Start: 02-01-2024 End: 02-01-2024 Patient encounter status [facility] Start: 02-01-2024 End: 02-01-2024 [facility] Start: 02-01-2024 Encounter for other preprocedural examination [facility] Start: 01-27-2024 End: 01-27-2024 Telephone encounter Maile Burr MD [facility] Start: 01-25-2024 Telephone encounter Marialuisa Portillo RN [employer] Start: 01-25-2024 End: 01-25-2024 Office outpatient new 45 minutes Eugeneab Aminah DIEGO [facility]: [facility] Comment on above: 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); Abnormal findings on imaging test; Adenotonsillar hypertrophy; Tonsillitis Start: 01-22-2024 End: 01-22-2024 ambulatory SIMRAN NELSON Facility:[facility] Start: 01-22-2024 End: 01-22-2024 Patient encounter procedure Simran Nelson AIRPLANE PILOT SUPERVISOR.[employer] EQUIPMENT OPERATOR Work Phone: Palliative Medicine Comment on above: Palliative care by s pecialist (Primary Dx); Neoplasm related pain; Opioid contract exists; Osteoarthritis of spine, unspecified spinal osteoarthritis complication status, unspecified spinal region; 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); Drug-induced constipation Refill Request Start: 01-22-2024 Telephone encounter Teetee navarro [facility] Work Phone: [facility] Comment on above: Medication Authoriza tion (Buprenorphine patches) Start: 01-21-2024 End: 01-21-2024 Telephone encounter Shanthi Lu APRN-[employer]ORE EQUIPMENT OPERATOR Work [facility]: [facility] Start: 01-18-2024 End: 01-26-2024 Refill Jess Askew CMA [facility] Comment on above: Chronic pain syndrom e; Chronic left hip pain Start: 01-04-2024 End: 01-04-2024 [facility] Start: 01-04-2024 End: 01-04-2024 Subsequent hospital visit by physician Arrival Time Radiology Work Phone: [facility] Comment on above: 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) (Primary Dx); 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HCC); Abnormal finding on imaging Start: 12-15-2023 End: 12-15-2023 Office outpatient visit 15 minutes Shanthi Lu AIRPLANE PILOT SUPERVISOR-LONGSHORE EQUIPMENT OPERATOR Work Phone: [facility] Physicians Internal Medicine - Family Medicine Comment [...] Start: 12-09-2023 End: 12-09-2023 ambulatory TOBI PLATA Facility:[facility] Start: 12-03-2023 Telephone encounter Cassie Greene RN Hematology/Oncology Start: 10-29-2023 End: 11-02-2023 Refill Britt Pelletier MD Work Phone: [facility] Start: 10-19-2023 End: 10-19-2023 ambulatory [facility] Start: 10-19-2023 End: 10-19-2023 Office outpatient visit 25 minutes Shanthi Lu AIRPLANE PILOT SUPERVISOR-LONGSHORE EQUIPMENT OPERATOR Work Phone: [facility]icians Internal Medicine - Family Medicine Comment on above: Chronic pain syndrom e (Primary Dx); Chronic left hip pain; Muscle spasm; Attention deficit hyperactivity disorder (ADHD), unspecified ADHD type Start: 10-19-2023 End: 10-20-2023 Telephone encounter Jael Dez PHYSICIAN REPRESENTATIVE [facility] - [facility] Medicine Start: 10-09-2023 End: 10-09-2023 Patient encounter procedure Simran Nelson AIRPLANE PILOT SUPERVISOR.LONGSHORE EQUIPMENT OPERATOR Work Phone: Palliative Medicine Comment on above: NO SHOW (Primary Dx) Start: 09-29-2023 Telephone encounter Ana Hu liative Medicine Comment on above: Initial Consult Start: 09-28-2023 Orders Only Simran dong AIRPLANE PILOT SUPERVISOR.LONGSHORE EQUIPMENT OPERATOR Work Phone: [employer] Comment on above: [...] Start: 08-12-2023 Telephone encounter Marialuisa Portillo RN [facility] Comment on above: Insurance Authorizat ion Start: 08-12-2023 End: 08-12-2023 Subsequent hospital visit by physician Arrival Time Radiology Work Phone: Radiology Pet CT Comment on above: 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] Start: 08-11-2023 End: 08-11-2023 Refill Simran Nelson APRN.LONGSHORE EQUIPMENT OPERATOR Work Phone: [facility] Comment on [...] Phone: Hematology/Oncology Start: 09-24-2021 End: 06-12-2022 ambulatory [place] Start: 05-25-2021 End: 05-25-2021 Emergency department patient visit ESTEBAN D MARTUS [facility] Start: 05-18-2021 End: 05-22-2021 Evaluation and management of inpatient DEANNA CHINCHILLA [facility] Start: 12-03-2018 End: 12-06-2018 Evaluation and management of inpatient IQRA ADDISON [facility] Start: 12-03-2018 End: 12-03-2018 Emergency department patient visit RODRICK MARTINEZ [facility] Start: 07-13-2018 Admission to [facility] Valdemar pAple MD Work Phone: [facility] Start: 07-13-2018 ambulatory Valdemar burden MD Work Phone: [facility]P [facility] [id number] Procedures Date Procedure Procedure Detail Performing Clinician Start: 12-15-2024 Follow-up visit Follow-up VALDEMAR Lopez RADHA Start: 10-20-2024 Adult depression scr eening assessment Shanthi Lu APRN-LONGSHORE EQUIPMENT OPERATOR Work Phone: Start: 08-12-2024 Fluorescein angrph w/multiframe [...] 12-15-2023 Adult depression scr eening assessment Shanthi Lu APRN-LONGSHORE EQUIPMENT OPERATOR Work Phone: Start: 10-19-2023 Adult depression scr eening assessment Shanthi Lu AIRPLANE PILOT SUPERVISOR-LONGSHORE EQUIPMENT OPERATOR Work Phone: Start: 08-12-2023 Pet imaging for [...] MD Work Phone: Start: 12-06-2018 DISCHARGE PATIENT [facility] [place] Start: 12-06-2018 Mri brain brain stem w/o contrast material IQRA [facility] Start: 12-06-2018 IP CONSULT TO SOCIAL WORK IQRA [facility] Start: 12-06-2018 Echo tthrc r-t 2d w/wom-mode compl spec&colr d IQRA [facility] Start: 12-06-2018 INITIATE OXYGEN THER APY PROTOCOL IRQA [facility] Start: 12-05-2018 Antinuclear antibodies jacky IQRA [...] EVAL AND TREAT IQRA [facility] Start: 12-04-2018 EMBEDDED SYSTEMS ENGINEER EVAL AND TREAT DEVANTE L [facility] Start: [...] Start: 12-03-2018 Ct angiography head w/contrast/noncontrast RODRICK GIANGDAJA Start: 12-03-2018 Ct angiography neck w/contrast/noncontrast RODRICK GIANGDAJA Start: 12-03-2018 Ct thorax w/contrast material RODRICK GIANGDAJA Start: 12-03-2018 Assay of troponin quantitative RODRICK MICHELLE Start: 12-03-2018 Basic metabolic pane l calcium total RODRICK MICHELLE Start: 12-03-2018 Blood count complete auto&auto difrntl wbc RODRICK GIANGDAJA Start: 12-03-2018 Drug tst prsmv instr mnt chem analyzers pr date RODRICK GIANGDAJA Start: 12-03-2018 Radiologic exam ches t single view RODRICK MICHELLE Start: 12-03-2018 Ecg routine ecg w/le ast 12 lds w/i&r RODRICK MICHELLE Start: 12-03-2018 INSERT PERIPHERAL IV AL ANNAMILTON GIANGDAJA Start: 12-03-2018 TELEMETRY MONITORING AL NARAYAN CHAMORROSarah Start: 12-03-2018 VITAL SIGNS RODRICK MICHELLE Plan of Treatment Date Care Activity Detail Author Start: 01-03-2031 DTaP,Tdap and Td Vaccines (6 - Td or Tdap) DTaP,Tdap and Td Vaccines (6 - Td or Tdap) [facility] Start: 01-03-2031 Urine microalbumin profile [facility] Start: 12-20-2028 Urine microalbumin profile DTAP,TDAP,TD (4 - Td or Tdap) [facility] Start: 01-03-2027 Diabetes Screening Diabetes Screening [facility] Start: 01-30-2026 Tobacco Screening Tobacco Screening [facility] Start: 01-19-2026 Adult BMI Screening Adult BMI Screening [facility] Start: 01-16-2026 Adult BMI Screening Adult BMI Screening [facility] Start: 01-16-2026 Tobacco Screening Tobacco Screening [facility] Start: 01-11-2026 Tobacco Screening Tobacco Screening [facility] Start: 01-10-2026 Adult BMI Screening Adult BMI Screening [facility] Start: 12-15-2025 Adult BMI Screening Adult BMI Screening [facility] Start: 12-15-2025 Tobacco Screening Tobacco Screening [facility] Start: 11-11-2025 Adult BMI Screening Adult BMI Screening [facility] Start: 11-11-2025 Tobacco Screening Tobacco Screening [facility] Start: 10-20-2025 Adult BMI Follow Up Plan Adult BMI Follow Up Plan [facility] Start: 10-20-2025 Adult BMI Screening Adult BMI Screening [facility] Start: 10-20-2025 Depression Screening Depression Screening [facility] Start: 10-20-2025 Tobacco Screening Tobacco Screening [facility] Start: 08-12-2025 Tobacco Screening Tobacco Screening [facility] Start: 07-25-2025 Adult BMI Follow Up Plan Adult BMI Follow Up Plan [facility] Start: 07-25-2025 Adult BMI Screening Adult BMI Screening [facility] Start: 07-25-2025 Tobacco Screening Tobacco Screening [facility] Start: 03-27-2025 End: 03-27-2025 Patient encounter procedure 03/27/2025 11:00 AM EDT Office Visit [facility] Internal Medicine - Family Medicine [address] [place] [address] Miah Zamarripa, AIRPLANE PILOT SUPERVISOR-LONGSHORE EQUIPMENT OPERATOR [address], [address] [address] [facility] Phys[facility] Internal Medicine - Family Medicine Start: 02-13-2025 Influenza vaccination Influenza Vaccine [facility] Start: 02-07-2025 End: 02-07-2025 Patient encounter procedure 02/07/2025 12:00 PM EDT Office Visit [facility] [address] [place] [phone] Cameron Soria, MERLINE [address] [place], [place] [phone] [facility] Start: 02-01-2025 Adult BMI Screening Adult BMI Screening [facility] Start: 02-01-2025 Tobacco Screening Tobacco Screening [facility] Start: 01-30-2025 End: 01-30-2025 Patient encounter procedure 01/30/2025 11:00 AM EDT Office Visit [facility] [address] [place] [phone] Jennifer Bender, AIRPLANE PILOT SUPERVISOR-[facility] [address] [place], [place] [phone] [facility] Start: 01-25-2025 Tobacco Screening Tobacco Screening [facility] Start: 01-24-2025 Adult BMI Screening Adult BMI Screening [facility] Start: 01-19-2025 End: 01-19-2025 Patient encounter procedure 01/19/2025 11:15 AM EDT Office Visit [facility] - Medical Oncology [address] [place] [phone] Valdemar Garcia MD [address] [place], [place] [phone] [facility] Start: 01-16-2025 End: 01-16-2025 Admission to same day surgery center 01/16/2025 12:15 PM EDT - 01/16/2025 1:15 PM EDT Surgery [facility] - Surgery [address] [facility] [place] [phone] Scot Pang MD [address] [place] [phone] BIOPSY LYMPH NODE INGUINAL [66857 (CPT )] [facility] Comment on above: BIOPSY LYMPH NODE INGUINAL [41303 (CPT ) ] Start: 01-16-2025 End: 01-16-2025 Bx/exc lymph node open superficial BIOPSY LYMPH NODE INGUINAL right groin lymph node lymphocyte 01/16/2025 12:15 PM EDT [facility] Start: 01-16-2025 Subsequent hospital visit by physician 01/16/2025 12:15 PM EDT Hospital Encounter [facility] Surgery [address] [place] [address] Scot Pang MD [address] [place] [address] [facility] Start: 01-11-2025 End: 01-11-2025 Patient encounter procedure 01/11/2025 12:45 PM EDT Procedure visit [facility] - Pre Admit [address] [place] [address] [facility] Admit Start: 12-15-2024 End: 12-15-2025 Guidance for biopsy of Lymph node IR biopsy lymph node Imaging Routine 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) Abnormal findings on imaging test Expected: 12/15/2024, Expires: 12/15/2025 [employer] Work Phone: Comment on above: Expected: 12/15/2024, Expires: Start: 12-15-2024 End: 12-15-2024 Patient encounter procedure 12/15/2024 12:45 PM EDT Office Visit [facility] Medical On[facility] [address] [place] [phone] Valdemar Garcia MD [address] [place] [address] [address] [place] [address] [facility] - Medical Oncology Start: 12-14-2024 Adult BMI Follow Up Plan Adult BMI Follow Up Plan [facility] Start: 12-14-2024 Adult BMI Screening Adult BMI Screening [facility] Start: 12-14-2024 Depression Screening Depression Screening [facility] Start: 12-14-2024 Tobacco Screening Tobacco Screening [facility] Start: 11-25-2024 End: 11-25-2024 Patient encounter procedure 11/25/2024 9:30 AM EDT Appointment [facility] - Pet Imaging [address] [place] [address] [facility] Pet [facility] Start: 11-11-2024 End: 11-11-2025 PT Skull base to mid-thigh PET CT skull to thigh Imaging Routine 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) Expected: 11/11/2024, Expires: 11/11/2025 [facility] Comment on above: Expected: 11/11/2024, Expires: Start: 11-11-2024 End: 11-11-2024 Patient encounter procedure 11/11/2024 8:45 AM EDT Office Visit [facility] - Medical Oncology [address] [place] [address] Valdemar Garcia MD [address] [place] [address] [address] [place] [address] [facility] - Medical Oncology Start: 10-18-2024 Adult BMI Follow Up Plan Adult BMI Follow Up Plan [facility] Start: 10-18-2024 Adult BMI Screening Adult BMI Screening [facility] Start: 10-18-2024 Depression Screening Depression Screening [facility] Start: 10-18-2024 Tobacco Screening Tobacco Screening [facility] Start: 09-23-2024 End: 09-23-2024 Patient encounter procedure 09/23/2024 1:00 PM EDT Office Visit [facility] Oncology [address] [facility] [address] [place] [phone] Samuel Valadez MD [address] [place] [address], [address] [place] [address] [facility] Medical Oncology Start: 08-18-2024 End: 08-18-2024 Patient encounter procedure 08/18/2024 1:00 PM EST Office Visit [facility] Medical Oncology [address] [facility] [address] [place] [phone] [place] [address] [place] [address], [address] [place] [address] [facility] Medical Oncology Start: 08-12-2024 End: 08-12-2024 Patient encounter procedure 08/12/2024 9:00 AM EST Office Visit [facility] Bryon Steinberg [address] [facility] [address] [place] [phone] Fortunato Balderrama MD [address] [facility] [address] [place] [phone] [facility] Bryon [facility] Start: 2024 Screening for malignant neoplasm of colon [facility] Start: 04-18-2024 End: 04-18-2024 Patient encounter procedure 04/18/2024 1:20 PM EST Office Visit [facility] Physicians Internal Medicine - Family Medicine [address] [place] [phone] Shanthi Lu, AIRPLANE PILOT SUPERVISOR-LONGSHORE EQUIPMENT OPERATOR [address] [place] [address] [facility] Internal Medicine - Family Medicine Start: 03-09-2024 End: 03-09-2024 Follow-up encounter 03/09/2024 10:30 AM EDT Visit (SP) Office Hematology/Oncology [address] [place] [address] [place] [address] Rich Hill MD [address] [place] [address] follow up and labs Hematology/Oncology Comment on above: follow up and labs Start: 03-09-2024 End: 03-09-2024 Patient encounter procedure 03/09/2024 10:15 AM EDT Office Visit [facility] [address] [place] [address] [place] [address] follow up and labs [facility] Comment on above: follow up and labs Start: 03-07-2024 End: 03-07-2024 Patient encounter procedure 03/07/2024 1:45 PM EDT Office Visit [facility] [address] [facility] [address] [place] [address] Maile Burr MD [address] [facility] [address] [place] [address] [facility] Start: 02-24-2024 End: 02-24-2024 Follow-up encounter 02/24/2024 3:30 PM EDT Visit (SP) Office Hematology/Oncology [address] [place] [address] Rich Hill MD [address] [place] [address] follow up and labs Hematology/Oncology Comment on above: follow up and labs Start: 02-24-2024 End: 02-24-2024 Patient encounter procedure 02/24/2024 3:15 PM EDT Office Visit [facility] [address] [place] [address] [place] [address] follow up and labs [facility] Comment on above: follow up and labs Start: 02-24-2024 End: 02-16-2025 CBC W Auto Differential panel - Blood COMPLETE BLOOD COUNT AND DIFFERENTIAL Lab Routine 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) Expected: 02/24/2024, Expires: 02/16/2025 [facility] Comment on above: Expected: 02/24/2024, Expires: Start: 02-24-2024 End: 02-16-2025 Comprehensive metabolic 2000 panel - Serum or Plasma COMPREHENSIVE METABOLIC PANEL Lab Routine 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) Expected: 02/24/2024, Expires: 02/16/2025 [facility] Comment on above: Expected: 02/24/2024, Expires: Start: 02-24-2024 End: 02-16-2025 Lactate dehydrogenase [Enzymatic activity/volume] in Serum or Plasma LACTATE DEHYDROGENASE Lab Routine 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) Expected: 02/24/2024, Expires: 02/16/2025 [facility] Work Phone: Comment on above: Expected: 02/24/2024, Expires: Start: 02-22-2024 End: 02-22-2024 Patient encounter procedure 02/22/2024 2:00 PM EDT Office Visit [facility] [address] [facility] [address] [place] [phone] Maile Burr MD [address] [facility] [address] [place] [address] [facility] Start: 02-19-2024 End: 02-19-2024 Follow-up encounter 02/19/2024 2:45 PM EDT Visit (SP) Office Hematology/Oncology [address] [place] [address] [place] [address] Rich Hill MD [address] [place] [address] 8 week follow up with lab Hematology/Oncology Comment on above: 8 week follow up with lab Start: 02-19-2024 End: 02-19-2024 Patient encounter procedure 02/19/2024 2:30 PM EDT Office Visit [facility] [address] [place] [address] 8 week follow up with lab [facility] Comment on above: 8 week follow up with lab Start: 02-16-2024 End: 02-16-2024 Patient encounter procedure Palliative Medicine Comment on above: 4 week follow up Start: 02-14-2024 Influenza vaccination [facility] Start: 02-02-2024 End: 02-02-2024 Admission to same day surgery center [facility] Comment on above: TONSILLECTOMY ADENOIDECTOMY [42931 (CPT )] Start: 02-02-2024 End: 02-02-2024 Anesthesia consultation 02/02/2024 8:30 AM EDT Anesthesia Event [facility] [address] [place] [address] Rey Rose SRNA [facility] Start: 02-02-2024 Subsequent hospital visit by physician [facility] Start: 02-02-2024 End: 02-02-2024 Tonsillectomy & adenoidectomy age 11/> [facility] Start: 01-28-2024 End: 01-28-2024 Patient encounter procedure 01/28/2024 12:15 PM EDT Procedure visit [facility] On [address] [phone] [facility] Start: 01-25-2024 End: 01-25-2024 Patient encounter procedure 01/25/2024 10:30 AM EDT Office Visit [facility] [address] [facility] [address] [place] [address] Maile Burr MD [address] [facility] [address] [place] [address] [facility] Start: 01-22-2024 End: 01-22-2024 Patient encounter procedure 01/22/2024 3:00 PM EDT Office Visit Palliative Medicine [address] [place] [address] Simran Nelson APRN.[employer]SHORE EQUIPMENT OPERATOR [address] [place] [address] follow up with Pall Med Palliative Medicine Comment on above: follow up with Pall Med Start: 01-22-2024 End: 04-22-2024 PAIN PANEL, UR QUANT [facility] Work Phone: Comment on above: Expected: 01/22/2024 (Approximate), Expi res: 04/22/2024 Start: 01-22-2024 End: 04-22-2024 TOXICOLOGY SCREEN, ROUTINE URINE [facility] Comment on above: Expected: 01/22/2024 (Approximate), Expi res: 04/22/2024 Start: 01-04-2024 End: 01-04-2024 Patient encounter procedure 01/04/2024 12:15 PM EDT Appointment Radiology [facility] [address] [place] [address] Pet scan and lab Radiology Pet CT Comment on above: Pet scan and lab Start: 12-18-2023 End: 12-18-2023 Follow-up encounter 12/18/2023 2:30 PM EDT Visit (SP) Office Hematology/Oncology [address] [place] [address] [place] [address] Rich Hill MD [address] [place] [address] Follow up Hematology/Oncology Comment on above: Follow up Start: 12-18-2023 End: 12-17-2024 CBC W Auto Differential panel - Blood COMPLETE BLOOD COUNT AND DIFFERENTIAL Lab Routine 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) Abnormal finding on imaging Expected: 12/18/2023, Expires: 12/17/2024 [facility] Comment on above: Expected: 12/18/2023, Expires: Start: 12-18-2023 End: 12-17-2024 Comprehensive metabolic 2000 panel - Serum or Plasma COMPREHENSIVE METABOLIC PANEL Lab Routine 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) Abnormal finding on imaging Expected: 12/18/2023, Expires: 12/17/2024 [facility] Comment on above: Expected: 12/18/2023, Expires: Start: 12-18-2023 End: 12-17-2024 Lactate dehydrogenase [Enzymatic activity/volume] in Serum or Plasma LACTATE DEHYDROGENASE Lab Routine 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) Abnormal finding on imaging Expected: 12/18/2023, Expires: 12/17/2024 [facility] Comment on above: Expected: 12/18/2023, Expires: Start: 12-15-2023 End: 12-14-2024 XR Pelvis and Hip - left 2 Views X-ray hip left 2-3 views with or without pelvis Imaging Routine Chronic left hip pain Expected: 12/15/2023, Expires: 12/14/2024 [facility] Work Phone: Comment on above: Expected: 12/15/2023, Expires: Start: 12-09-2023 End: 12-09-2023 Patient encounter procedure 12/09/2023 10:00 AM EDT Office Visit Psychiatry [address] [place] [phone] Tobi Plata MD [address] [place] [address] NEW CONSULT Psychiatry Comment on above: NEW CONSULT Start: 12-05-2023 Lipid panel Lipid Screening [facility] Start: 11-02-2023 End: 11-02-2023 Follow-up encounter 11/02/2023 2:00 PM EDT Visit (SP) Office Hematology/Oncology [address] [place] [address] [place] [address] Rich Hill MD [address] [place] [address] [place] [address] follow up after ENT [facility] Hematology/Oncology Comment on above: follow up after ENT [facility] Start: 10-16-2023 End: 10-16-2023 Patient encounter procedure 10/16/2023 1:25 PM EDT Office Visit Otolaryngology [address] [facility] [address] [place], [place] [phone] Jessie Castro, AIRPLANE PILOT SUPERVISOR.LONGSHORE EQUIPMENT OPERATOR [address] [place], [place] [phone] Consult dx abnormal imaging ref by Dr Rich Hill Otolaryngology Comment on above: Consult dx abnormal imaging ref by Dr Krysta Hill Start: 08-11-2023 End: 11-10-2023 PAIN PANEL, UR QUANT PAIN PANEL, UR QUANT Lab Routine Opioid contract exists Expected: 08/11/2023, Expires: 11/10/2023 [facility] Work Phone: Comment on above: Expected: 08/11/2023, Expires: 4 Start: 08-11-2023 End: 11-10-2023 TOX SCREEN ROUT UR TOX SCREEN ROUT UR Lab Routine Opioid contract exists Expected: 08/11/2023, Expires: 11/10/2023 [facility] Work Phone: Comment on above: Expected: 08/11/2023, Expires: 4 Start: 07-29-2023 End: 07-29-2024 CBC W Auto Differential panel - Blood CBC + DIFF Lab Routine 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) Expected: 07/29/2023, Expires: 07/29/2024 [facility] Work Phone: Comment on above: Expected: 07/29/2023, Expires: 5 Start: 07-29-2023 End: 10-28-2023 Chronic hepatitis differentiation between hepatitis B and C virus panel - Serum or Plasma HEP REMOTE PANEL BL Lab Routine s/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) Expected: 07/29/2023, Expires: 10/28/2023 [facility] Work Phone: Comment on above: Expected: 07/29/2023, Expires: 4 Start: 07-29-2023 End: 07-29-2024 Comprehensive metabolic 2000 panel - Serum or Plasma COMP METABOLIC PANEL Lab Routine 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) Expected: 07/29/2023, Expires: 07/29/2024 [facility] Work Phone: Comment on above: Expected: 07/29/2023, Expires: 5 Start: 07-29-2023 End: 07-29-2024 Lactate dehydrogenase [Enzymatic activity/volume] in Serum or Plasma LD LACTATE DEHYDRO Lab Routine 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) Expected: 07/29/2023, Expires: 07/29/2024 [facility] Work Phone: Comment on above: Expected: 07/29/2023, Expires: 5 Start: 07-29-2023 End: 10-28-2023 Urate [Mass/volume] in Serum or Plasma URIC ACID BLOOD Lab Routine 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) Expected: 07/29/2023, Expires: 10/28/2023 [facility] Work Phone: Comment on above: Expected: 07/29/2023, Expires: 4 Start: 07-21-2023 Pneumococcal vaccination [facility] Start: 07-21-2023 TWO PNEUMOVAX 5 YEARS APART PRIOR TO AGE 65 (#2) TWO PNEUMOVAX 5 YEARS APART PRIOR TO AGE 65 (#2) [facility] Start: 06-15-2023 Depression Assessment Depression Assessment [facility] Start: 02-13-2023 Influenza vaccination Influenza Vaccine (#1) [facility] Start: 12-08-2021 LIPID SCREEN LIPID SCREEN [facility] Start: 09-23-2021 Covid-19 Vaccine (3 - Moderna risk series) Covid-19 Vaccine (3 - Moderna risk series) [facility] Start: 02-13-2021 Influenza vaccination INFLUENZA (#1) [facility] Start: 05-22-2019 Hepatitis B Vaccine (3 of 3 - Hep B Twinrix 3-dose series) Hepatitis B Vaccine (3 of 3 - Hep B Twinrix 3-dose series) [facility] Start: 1997 Adult BMI Follow Up Plan Adult BMI Follow Up Plan [facility] Start: 1997 ANNUAL PCP TEAM CHRONIC DISEASE VISIT ANNUAL PCP TEAM CHRONIC DISEASE VISIT [facility] Start: 1997 HEPATITIS C SCREENING HEPATITIS C SCREENING [facility] Start: 1997 Hepatitis C screening Hepatitis C Screening [facility] Start: 1991 COVID-19 VACCINE (1) COVID-19 VACCINE (1) [facility] Start: 01-01-1980 Covid-19 Vaccine (#1) Covid-19 Vaccine (#1) [facility] Start: 1979 HPV Vaccine: Recommended Based On Risk HPV Vaccine: Recommended Based On Risk [facility] Start: 1979 Tobacco Counseling Tobacco Counseling [facility] End: 11-11-2025 CBC W Auto Differential panel - Blood CBC with auto diff Lab Routine 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) 1 Occurrences starting 11/11/2024 until 11/11/2025 [facility] Work Phone: Comment on above: 1 Occurrences starting 11/11/2024 until 11/11/2025 End: 11-11-2025 Comprehensive metabolic 2000 panel - Serum or Plasma Comprehensive metabolic panel Lab Routine 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) 1 Occurrences starting 11/11/2024 until 11/11/2025 [facility] Comment on above: 1 Occurrences starting 11/11/2024 until 11/11/2025 End: 11-11-2025 Erythrocyte sedimentation rate Erythrocyte Sedimentation Rate (ESR) Lab Routine 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) 1 Occurrences starting 11/11/2024 until 11/11/2025 [facility] Comment on above: 1 Occurrences starting 11/11/2024 until 11/11/2025 PAIN PANEL, UR QUANT PAIN PANEL, UR QUANT Lab Routine Opioid contract exists 01/22/2024 4:19 PM EDT [facility] End: 01-16-2025 PET+CT Guidance for localization of tumor of Skull base to mid-thigh-- W 18F-FDG IV NM PET/CT SKULL-THIGH SUBSEQUENT Radiology Routine 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) Abnormal finding on imaging 1 Occurrences starting 12/18/2023 until 01/16/2025 [facility] Work Phone: Comment on above: 1 Occurrences starting 12/18/2023 until 01/16/2025 End: 08-27-2024 PET+CT Whole body Bone W 18F-NaF IV NM PET/CT WHOLE BODY SUBSEQUENT Radiology Routine 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) 1 Occurrences starting 07/29/2023 until 08/27/2024 [facility] Work Phone: Comment on above: 1 Occurrences starting 07/29/2023 until 08/27/2024 SPECIMEN VALIDITY, URINE SPECIME N VALIDITY, URINE Lab Routine Opioid contract exists 01/22/2024 4:19 PM T [facility] End: 12-15-2025 Surgical Pathology - Tissue (Biopsy) Surgical Pathology - Tissue (Biopsy) Pathology and Cytology Routine 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) Abnormal findings on imaging test 1 Occurrences starting 12/15/2024 until 12/15/2025 [facility] Comment on above: 1 Occurrences starting 12/15/2024 until 12/15/2025 End: 01-10-2026 Unlisted Procedure / Surgery Unlisted Procedure / Surgery Procedures Routine 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) 1 Occurrences starting 01/10/2025 until 01/10/2026 [facility] Work Phone: Comment on above: 1 Occurrences starting 01/10/2025 until 01/10/2026 End: 11-11-2025 Urate [Mass/volume] in Serum or Plasma Uric acid Lab Routine 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) 1 Occurrences starting 11/11/2024 until 11/11/2025 [facility] Comment on above: 1 Occurrences starting 11/11/2024 until 11/11/2025 [facility] Immunizations Immunization Date Immunization Notes Care Provider Fa [facility] 01-03-2021 tetanus toxoid, redu belén diphtheria toxoid, and acellular pertussis vaccine, adsorbed Rich Hill MD Work Phone: [facility] 12-20-2018 haemophilus influenz ae type b vaccine, PRP-OMP conjugate Rich Hill MD Work Phone: [facility] 12-20-2018 hepatitis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 develop any [...] piercings ,hair extensions that contain metal, nail comoran, make-up, and contact lens. You may brush [...] RIGHTS AND RESPONSIBILITIES As a patient at [facility], you have the right to: Receive medical care and be informed of who is taking care of you Be treated with dignity and respect Have a family member/member service representative of choice and your physician notified of your admission Receive information and actively participate in decisions about your care and treatment Refuse care, treatment and services Decide who may provide your support and speak for you Access islam and spiritual services Participate in ethical issues [...] of hospital charges and payment methods Patient/patient member service representative responsibilities are to: Provide information about [...] promptly as possible documented in this encounter [facility] 02-01-2024 Miscellaneous Notes Attempted to make reminder phone call for PAT apoointment. Unable to leave a message, voice mailbox not set up. documented in this encounter [facility] 02-01-2024 Nurse Note Attempted to make reminder phone call for PAT apoointment. Unable to leave a message, voice mailbox not set up. [facility] 01-27-2024 Miscellaneous Notes Surgery Scheduling Request 01/27/24 Patient: Joselyn Carnes : 1980 Surgical Procedure(s): biopsy of adenoids and tonsils, possible tonsillectomy and adenoidectomy Side(s):bilateral Anesthesia: General Surgery Time: 60 minutes Facility Preference: [facility] if possible Post Op Destination: Outpatient Estimated length of stay: n/a Preop Anesthesia Appointment?: Yes Lab Testing?: No Medical Clearance Required?: Yes by group home supervisor. If not seeing a group home supervisor then PCP Does medical clearance include perioperative management of anticoagulants? No Which anticoagulants need to be addressed? N/a Special Equipment? No When should patient follow up after surgery? 2-4 weeks with Aminah Additional Comments: schedule within 2 weeks [facility] Telephone encounter Note Surgery Scheduling Request 01/27/24 Patient: Joselyn Carnes : 1980 Surgical Procedure(s): biopsy of adenoids and tonsils, possible tonsillectomy and adenoidectomy Side(s):bilateral Anesthesia: General Surgery Time: 60 minutes Facility Preference: [facility] if possible Post Op Destination: Outpatient Estimated length of stay: n/a Preop Anesthesia Appointment?: Yes Lab Testing?: No Medical Clearance Required?: Yes by group home supervisor. If not seeing a group home supervisor then PCP Does medical clearance include perioperative management of anticoagulants? No Which anticoagulants need to be addressed? N/a Special Equipment? No When should patient follow up after surgery? 2-4 weeks with Aminah Additional Comments: schedule within 2 weeks [facility] 01-25-[facility]24 Telephone encounter Note Prior Authorization Documentation Prior authorization requested for: MEDICATION Butran 5 mcg TD patch [facility] [facility]. Spoke Annemarie in [place] department. Insurance Company Name: [employer]. Pharmacy Name: [facility] and Authorization approval [place] # [id number] and awaiting determination. Dates of Approval: from ? to ? Patient Assistance Needed: No Time Spent 25 minutes Marialuisa Portillo RN January 25, 2024 [facility] 01-25-2024 Miscellaneous Notes Prior Authorization Documentation Prior authorization requested for: MEDICATION Butran 5 mcg TD patch Submitted via phone call to [employer] [place] department. Spoke Annemarie in [place] department. Insurance Company Name: [employer]. Pharmacy Name: [facility] and Authorization approval [place] # [id number] and awaiting determination. Dates of Approval: from ? to ? Patient Assistance Needed: No Time Spent 25 minutes Marialuisa Portillo RN January 25, 2024 documented in this encounter [facility] 01-25-2024 Telephone encounter Note Yes we will be doing an appeal, thanks [facility] 01-25-2024 Miscellaneous Notes Yes we will [...] Drug: Buprenorphine patches Cover My Meds Ly: [id number] Determination: Denied PA Denied because: Step therapy requirement Prior Authorization/Case #: [id number] Prior Authorization Expiration: na Time to PA Submission in CMM: 15 min Time to PA Determination in CMM: 1 day Additional Information: must try Tramadol ER For questions relating to this submission, please contact [facility] at [phone] documented in this encounter [facility] 01-25-2024 Telephone encounter Note Insurance DENIED butrans patches - he must have a failure, contraindication or intolerance to Tramadol ER. Allie - please advise if you will be completing an appeal. Thank you, Martina Stephenson RPh [facility] Work Phone: 01-25-2024 History of Present illness Narrative Images from the original note were not included. [facility] [address] [place] [address] [facility] [address] SUBJECTIVE: Patient ID (1980): Joselyn Carnes is [...] Date Blood clot in vein 2020 Cancer ([place]) Lymphoma ([place]) hodgkins Past Surgical History: Procedure Laterality Date [...] lymphoma of lymph nodes of multiple sites ([facility]) - [facility] [place], [place] Abnormal findings on imaging test - [facility] [place], [place] Adenotonsillar hypertrophy Tonsillitis - [facility] [place], [place] Plan: Patient is a 43-year-old male with a history of Hodgkin's lymphoma, intermittently lost to follow up, presenting with PET scan showing uptake and adenoids and bilateral tonsils. PSYCHIATRIC CLINICIAN scope with adenoid hypertrophy and exam with [...] this chart were generated using voice recognition YepLike! dictation software. Although every effort was made to ensure the accuracy of this automated acting teacher, some errors in acting teacher may have occurred. documented in this encounter [facility] 01-22-2024 Note Addended by: SIMRAN YAO on: 01/22/2024 04:14 PM Modules accepted: Orders [facility] 01-22-2024 Miscellaneous Notes Addended by: SIMRAN NELSON on: 01/22/2024 04:14 PM Modules accepted: Orders documented in this encounter [facility] 01-22-2024 Telephone encounter Note Ambulatory Pharmacy Prior Authorization Note Provider Intervention Required?: No- Pharmacy completed on your behalf. Rx Plan: [facility]: Buprenorphine patches Cover My Meds Ly: [id number] Determination: Denied PA Denied because: Step therapy requirement Prior Authorization/Case #: [id number] Prior Authorization Expiration: na Time to PA Submission in CMM: 15 min Time to PA Determination in CMM: 1 day Additional Information: must try Tramadol ER For questions relating to this submission, please contact [facility] at [phone] [facility] Work Phone: 01-22-2024 Instructions Simran Nelson APRN.LONGSHORE EQUIPMENT OPERATOR - 01/22/2024 3:35 PM EDT Simran Nelson CNP Department of Palliative and Supportive Care Palliative Care - Specialty services in symptom management and support For questions or prescription refills, call: [phone] Thursday - Thursday 9AM-5PM BISHOP Baldwin, RN - Special Machine Stitcher Please call 3-5 days in advance for medication refills Evenings, Weekends, Holidays: [phone] (ask for palliative medicine on-call provider) For appointments, cancellations or reschedule, call: [phone] documented in this encounter [facility] 01-22-2024 Nurse Note Patient sees ENT 01/25/24. Jovita Raygoza MA [facility] 01-22-2024 Nurse Note Patient sees ENT 01/25/24. Jovita Raygoza MA documented in this encounter [facility] 01-22-2024 History of Present illness Narrative [...] appetite and weight are stable Modified ESAS ([place] Symptom Assessment Scale) Information Provided By: Patient [...] activity was identified. 01/22/2024 by Simran Nelson, PSYCHIATRIC CLINICIAN, AIRPLANE PILOT SUPERVISOR.LONGSHORE EQUIPMENT OPERATOR Assessment & Plan (Z51.5) Palliative care by specialist (primary encounter diagnosis) - Introduced philosophy of palliative medicine - Discussed services offered by [facility] - Provided support - Discussed goals of [...] chronic pain severe enough to require daily, [id number], senior care opioid treatment AND ? Alternative treatment options [...] which included preparing to see the patient, [id number] patient care, completing clinical documentation, obtaining and/or [...] 4 Weeks in person Simran Nelson NP, AIRPLANE PILOT SUPERVISOR.LONGSHORE EQUIPMENT OPERATOR January 22, 2024 1:31 PM This note may have been partially generated using the YouOS voice recognition system. While every effort was made to correct voice recognition errors, kindly be aware that some errors may occasionally occur. documented in this encounter [facility] 01-22-2024 Note HNO ID: [id number] Author: SIMRAN NELSON APRN.HERACLIO Service: ? Author [...] appetite and weight are stable Modified ESAS ([place] Symptom Assessment Scale) Information Provided By: Patient [...] activity was identified. 01/22/2024 by Simran Nelson, PSYCHIATRIC CLINICIAN, AIRPLANE PILOT SUPERVISOR.LONGSHORE EQUIPMENT OPERATOR Assessment AND Plan (Z51.5) Palliative care by specialist (primary encounter diagnosis) - Introduced philosophy of palliative medicine - Discussed services offered by [facility] - Provided support - Discussed goals of care and how they align with current plan of care - Discussed / described code status and implications while in the ho (more content not included)... [facility] 01-21-2024 Miscellaneous Notes ----- Message from JUVE Marin sent at 01/21/2024 8:50 AM EDT ----- Patient will need an appointment to discuss abnormal results from [facility] How soon you want him in? Scheduling into February February is fine No VM [facility] 01-21-2024 Telephone encounter Note ----- Message from JUVE Marin sent at 01/21/2024 8:50 AM EDT ----- Patient will need an appointment to discuss abnormal results from [facility] 01-21-2024 Telephone encounter Note How soon you want him in? Scheduling into February [facility] 01-21-2024 Telephone encounter Note February is fine [facility] 01-21-2024 Telephone encounter Note No VM [facility] 01-18-2024 Telephone encounter Note Called ENT spoke with Dominga. Patient is scheduled to see Dr Burr on 01/24. Cara Meehan [facility] 01-18-2024 Miscellaneous Notes Called ENT spoke with Dominga. Patient is scheduled to see Dr Burr on 01/24. Cara Meehan Spoke with pt. He reports he called and is awaiting a call back to get scheduled. Encouraged to call them back if he does not hear back by Thursday, to check status of appt. Carola Nicolas, RN Called [facility] ENT office spoke with Cassie. She states they have received this referral and their office has been extremely busy and asked if we could call patient and ask him to call their office. I tried to call patient but unable to reach and unable to leave message mail box not set up. Cara Meehan Records faxed to [facility] ENT. Sangeeta: Information ready for you. Cara Meehan Please refer to ENT in [place] [facility]. The office phone number is [phone]. Address [address] in [place]. Sangeeta, Please fax records Sylvester, Please follow up on this appt. Thank you documented in this encounter [facility] 01-13-2024 Telephone encounter Note Report faxed. Images being pushed to [facility]. [facility] 01-13-2024 Miscellaneous Notes Report faxed. Images being pushed to [facility]. Spoke with Dr Aminah Castrejon's office she [...] with pt. He is seeing ENT, in [place]: 02/04/24 @ 130 Address: [address] [place] Call placed to [phone], Pt seeing Dr Burr ENT phone # provided [phone]. Will call after [address] inform of [address] Islas's recommendations. Sangeeta: please forward PET/CT to Dr Aminah Nicolas RN So he still hasn't seen ENT [...] 01-04-24. Thank you documented in this encounter [facility] 01-13-2024 Telephone encounter Note Spoke with [...] already scheduled for f/u with you 02/19/24) [facility] 01-13-2024 Telephone encounter Note Called and discussed with pt. He is seeing ENT, in [place]: 02/04/24 @ 130 Address: [facility] [place] Call placed to [phone], Pt seeing DANIA Velez phone # provided [phone]. Will call after [address] inform of [address] Islas's recommendations. Sangeeta: please forward PET/CT to Dr Aminah Nicolas RN [facility] 01-13-2024 Telephone encounter Note So he still hasn't seen ENT as far as I know - I'd like the ENT doc to review PET/CT because he's got uptake in adenoids. Low grade uptake in inguinal LN's Neck (with ENT ) will need tissue sampling. T [facility] Work Phone: 01-12-2024 Telephone encounter Note Nhung: please review PET resulted today and advise Carola Nicolas RN [facility] 01-04-2024 History of Present illness Narrative Radiology [...] 1205 PATIENT DISCHARGED TO: Ambulatory patient, left [place] department area. A Diagnostic radioactive procedure has taken place, with no further precautions necessary other than routine body substance precautions. More information regarding radiation safety can be found using this link: [email or web address] SIGNATURE: RT Diana(Paula) PATIENT NAME: Joselyn Carnes DATE: January 04, 2024 TIME: 12:38 PM PAGER/CONTACT #: documented in this encounter [facility] 01-04-2024 Note HNO ID: [id number] Author: MARCIA ZUNIGA RN Service: ? Author [...] DATE: January 04, 2024 TIME: 12:06 PM [facility] 01-04-2024 Note HNO ID: [id number] Author: LIZZIE JIMENEZ RT(R) Service: ? Author Type: Technologist [...] 1205 PATIENT DISCHARGED TO: Ambulatory patient, left [place] department area. A Diagnostic radioactive procedure has taken place, with no further precautions necessary other than routine body substance precautions. More information regarding radiation safety can be found using this link: [email or web address]%20Medicine [email or web address] SIGNATURE: Lizzie Jimenez RT(R) PATIENT NAME: Joselyn Carnes DATE: January 04, 2024 TIME: 12:38 PM PAGER/CONTACT #: [facility] 12-31-2023 Telephone encounter Note Spoke with pt. He reports he called and is awaiting a call back to get scheduled. Encouraged to call them back if he does not hear back by Thursday, to check status of appt. Carola Nicolas RN [facility] 12-31-2023 Telephone encounter Note Called [facility] ENT office spoke with Cassie. She states they have received this referral and their office has been extremely busy and asked if we could call patient and ask him to call their office. I tried to call patient but unable to reach and unable to leave message mail box not set up. Cara Meehan [facility] 12-31-2023 Miscellaneous Notes ----- Message from Almaz sent at 12/31/2023 8:49 AM EDT ----- Tried calling to schedule. Pt voicemail is not set up ----- Message ----- From: Katja Colin RN Sent: 12/31/2023 8:40 AM EDT To: [facility] Scheduling Team Please schedule with first [...] okay. Thank you!!! documented in this encounter [facility] 12-31-2023 Telephone encounter Note ----- Message from Almaz sent at 12/31/2023 8:49 AM EDT ----- Tried calling to schedule. Pt voicemail is not set up ----- Message ----- From: Katja Colin RN Sent: 12/31/2023 8:40 AM EDT To: [facility] Scheduling Team Please schedule with first [...] the general rotation is okay. Thank you!!! [facility] 12-21-2023 Telephone encounter Note Records faxed to [facility] ENT. [facility] 12-21-2023 Telephone encounter Note Sangeeta: Information ready for you. Cara Meehan [facility] 12-21-2023 Telephone encounter Note Please refer to ENT in [place] / [facility]. The office phone number is [phone]. Address [address] in [place]. Sangeeta, Please fax records Sylvester, Please follow up on this appt. Thank you [facility] 12-21-[address] Islas is requesting triage to call results of Pet scan and lab to be done on 01-04-24. Thank you [facility] 12-18-2023 Instructions Rich Hill MD - 12/18/2023 2:51 PM EDT PET/CT with labs Triage to call results Referral to ENT Referral back to palliative med RTC after ENT consultation and workup documented in this encounter [facility] 12-18-2023 History of Present illness Narrative Images from the original note were not included. NAME: Joselyn Carnes CLINIC NO.: [id number] DATE OF SERVICE: December 18, 2023 (Sandy) Some elements in this clinic note that are critical to medical decision making have been carefully reviewed and included from a prior clinic note dated: August 17, 2023 (Sandy) Referring Provider: Self Additional Clinicians involved in [...] on eloquis. Completion PET scan demonstrated CR [place] 1 07/06/2015 - Lymph node, right inguinal, [...] which included preparing to see the patient, [id number] patient care, completing clinical documentation, obtaining and/or reviewing separately obtained history, performing a medically appropriate examination, counseling and educating the patient/family/caregiver, ordering medications, tests, or procedures, independently interpreting results (not separately reported), communicating results to the patient/family/caregiver, and care coordination (not separately reported). Rich Hill MD, CPE Hematology and Oncology Services Provided at: [place], [place] Scribe Attestation: This note was scribed [...] provider on file. documented in this encounter [facility] 12-18-2023 Note HNO ID: [id number] Author: RICH HILL MD Service: ? Author Type: Physician Type: Progress Notes Filed: 12/20/2023 18:23 Note Text: NAME: CarnesJoselyn delaney [facility] NO.: [id number] DATE OF SERVICE: December 18, 2023 (Abmatthew) Some elements in this clinic note that are critical to medical decision making have been carefully reviewed and included from a prior clinic note dated: August 17, 2023 (Sandy) Referring Provider: Dhruv Additional Clinicians involved in [...] T12-L3 spine 07/2015- (more content not included)... [facility] 12-15-2023 History of Present illness Narrative Images from the original note were not included[place] [id number] SUBJECTIVE: Patient ID: Joselyn Carnes is a [...] Date Blood clot in vein 2020 Cancer ([facility]) Lymphoma ([facility]) hodgkins Immunization History Administered Date(s) Administered COVID-19, [...] Cruz 12/16/23 1256 documented in this encounter [facility] 12-15-2023 Instructions JUVE Cruz - 12/15/2023 1:40 PM EDT Are You Ready To Kick The Habit? Free Tobacco Cessation Resources [facility] Tobacco Treatment Center Services [facility] Tobacco Treatment Centers provide all employees with free tobacco cessation services that include: Counseling to understand nicotine addiction Education about medications that can help you successfully quit Assistance with developing a plan to quit Call to set up an individual appointment or find out when group classes will be held: [facility]: [phone] [facility]: [phone] [facility]: [phone] [facility]: [phone] Quit Smoking Action Plan and Resources [facility] offers an eight-week, online smoking cessation plan to all [facility] employees, regardless of whether [place] is your medical insurance provider. Go to [email or web address] ess and click the Health Risk Assessment and Resources link to get started. In the newMentor menu, click Action Plans instead of Health Risk Assessment to access the Quit Smoking Action Plan. Additional smoking cessation resources are also available to all [facility] employees on the Nxdmp3Ydzyjv web page at www.C[employer]/quits paddy. [place] Tobacco Cessation Program If [place] is your medical insurance provider, there are more free resources available to you, including: No copays or deductibles on local tobacco cessation counseling services to help you quit Prescription assistance for tobacco cessation medications to help you quit For details about the tobacco cessation program available to [place] members, go to www.[employer]ScramblerMail (Search: Tobacco Cessation Program). [place] Tobacco Quit Line 2-612-XXBV-NOW ( ) is a toll-free, telephonic service that helps [place] residents quit smoking and using tobacco. It is staffed by experts who tailor a quit plan for you and provide you with advice. [place] Tobacco Quit Line 1-824-XCBA-NOW ( ) is a toll-free, telephonic service that helps [place] residents quit smoking and using tobacco. It is staffed by experts who tailor a quit plan for you and provide you with advice. Two weeks of nicotine replacement therapy may be provided at no charge, if needed. Additional Resources These national organizations also offer free information and resources to help you quit tobacco: [place] Cancer Society--www.cancer.org/healthy/s tayawayfromtobacco [place] Heart Association--www.heart.org (Search: Quit Smoking) Centers for Disease Control and Prevention--www.cdc.gov/tobacco [place] Lung Association--www.lungusa.org The following attachments cannot be sent through Care Everywhere.Chronic pain (Cook Islander)documented in this encounter [facility] 12-09-2023 Note HNO ID: [id number] Author: GERALD SAPP RN Service: ? Author Type: Registered Nurse Type: Progress Notes Filed: 12/09/2023 14:47 Note Text: Palliative Medicine Care Coordination NEW PATIENT NOTE Patient identified by name and date of . YES Spoke with: patient Nurse introduced self and role of Special Machine Stitcher in Palliative Medicine. Office contact sheet provided [...] treatment at a residential rehab facility in [facility], but not currently seeing a psychiatry provider as psychiatry services not offered at treatment facility. Encouraged pt to call office with any questions or any need for assistance. All questions/concerns addressed: Yes Gerald Sapp RN [facility] 12-09-2023 History of Present illness Narrative Palliative Medicine Care Coordination NEW PATIENT NOTE Patient identified by name and date of . YES Spoke with: patient Nurse introduced self and role of Special Machine Stitcher in Palliative Medicine. Office contact sheet provided [...] treatment at a residential rehab facility in [facility], but not currently seeing a psychiatry provider as psychiatry services not offered at treatment facility. Encouraged pt to call office with any questions or any need for assistance. All questions/concerns addressed: Yes Gerald Sapp RN documented in this encounter [facility] 12-09-2023 Note HNO ID: [id number] Author: LIONEL MALONE LSW Service: ? Author Type: Equipment Operator [employer] Type: Progress Notes Filed: 12/09/2023 14:25 Note Text: SOCIAL WORK FOLLOW UP NOTE: CANCER CENTER Date of service:12/09/2023 Joselyn Carnes is being seen for a follow up [...] history of Hodgkin's and was treated at [facility] in the past. However, he has an appointment at [facility] with Dr. Chun on December 18, 2023. [...] community resources. Message left with the center [phone] asking for a return call. Message sent to the rn social services at [place] asking that she f/u as able. Message left with care team, Shanthi Lu [phone] of [facility]. . Patient was discharged after his clinic appointment. No admission was determined needed at this time. Provided contact information and will f/u appropriately. PAMELA Daley [facility] 12-09-2023 History of Present illness Narrative SOCIAL WORK FOLLOW UP NOTE: CANCER CENTER Date of service:12/09/2023 Joselyn Carnes is being seen for a follow up social work visit. Today's visit includes: patient TOPICS ADDRESSED: mental health needs and community resources PLAN: Continue follow up as needed , Provide emotional support to patient/family, and Referral to community resource F/U APPOINTMENT: PRN Rolo MCFADDEN listed in Care Team tab: Yes Recieved message from team to see patient for support and possible needed resources. 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 Patient was here today as a consult to Psych. Patient has past history of Hodgkin's and was treated at [facility] in the past. However, he has an appointment at [facility] with Dr. Chun on December 18, 2023. [...] community resources. Message left with the center [phone] asking for a return call. Message sent to the rn social services at [place] asking that she f/u as able. Message left with care team, Shanthi Lu [phone] of [facility]. . Patient was discharged after his clinic appointment. No admission was determined needed at this time. Provided contact information and will f/u appropriately. PAMELA Daley documented in this encounter [facility] 12-09-2023 Note HNO ID: [id number] Author: TOBI PLATA MD Service: ? Author Type: Physician Type: Progress Notes Filed: 12/09/2023 12:03 Note Text: [facility] Division of Psycho-Oncology Psychiatry Outpatient Visit- New Patient Encounter In-Person Visit Joselyn Carnes 1980 [id number] Visit date: 12/09/2023 . Visit # 1 [...] who is referred to psycho-oncology service at [facility] by [facility] for Auditory Hallucinations, ADHD. Patient presented to [facility] psychiatry with concerns for auditory hallucination and [...] since he started living at residential place ([facility]). He denies depressed mood, anxiety or current [...] options in the community. Patient met lymphoma rn social services Yair at the end of today's visit who will provide resources for community psychiatry. -Positive reinforcement on staying abstinent from cocaine and marijuana -Letter provided by RN to prove today's visit -I personally called [facility] at [place] at [phone]. Automated voice message told me the facility is closed on Thursday. I did not get to speak with anyone and left and a voice message -Follow-up as needed. Of note this is not a proper referral to [facility] psychiatry as patient is not in active cancer treatment. 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 While every effort was [...] about what those (more content not included)... [facility] 12-09-2023 History of Present illness Narrative Images from the original note were not included. [facility] Division of Psycho-Oncology Psychiatry Outpatient Visit- New Patient Encounter In-Person Visit Joselyn Carnes 1980 [id number] Visit date: 12/09/2023 . Visit # 1 [...] who is referred to psycho-oncology service at [facility] by [facility] for Auditory Hallucinations, ADHD. Patient presented to [facility] psychiatry with concerns for auditory hallucination and [...] since he started living at residential place ([facility]). He denies depressed mood, anxiety or current [...] options in the community. Patient met lymphoma rn social services Yair at the end of today's visit who will provide resources for community psychiatry. -Positive reinforcement on staying abstinent from cocaine and marijuana -Letter provided by RN to prove today's visit -I personally called [facility] at [place] at [phone]. Automated voice message told me the facility is closed on Thursday. I did not get to speak with anyone and left and a voice message -Follow-up as needed. Of note this is not a proper referral to [facility] psychiatry as patient is not in active cancer treatment. 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 While every effort was [...] the hospitalization. Patient reports he goes to [facility] for susbance use (cocaine) for the past 2 months. The rehab is located in [place], [place]. He reports there is no psychiatrist [...] provide a letter proving his visit at [facility] to his residential treatment center. UDS 10/19/23 [...] for visit today: 08/17/23 oncology, 10/09/[address] [facility], ER note on 05/24/2021 MEDICAL/ONCOLOGIC/SURGICAL HISTORY: PAST [...] Review of PDMP: [place] 5 mcg/h on 11-05 SOCIAL HISTORY: Living: lives in a motel. Family: consider his father and mother as good support. Has three sisters. Has a girlfriend for 13 years. Has a son and a daughter, 19 and 18. Trauma: used to be bullied when younger Education: HS Occupation: unemployed. On SSI due to food injury and cancer. experience: denies Legal: been to [facility] twice. For receiving stolen property and violating [employer]. Taoist/Spirituality: denies FAMILY HISTORY: Sister has schizophrenia bipolar [...] Tobi Plata MD documented in this encounter [facility] 12-07-2023 Telephone encounter Note I spoke with the Patient and have him scheduled to see Dr. Islas on 12/18/23 at 230 pm. ABRAN Watson [facility] 12-07-2023 Miscellaneous Notes I spoke with [...] ABRAN Watson Sent the information to Dilan Ball, then [...] Cassie Greene RN documented in this encounter [facility] 12-07-2023 Telephone encounter Note I called the Patient to give him, his appt date and time of: 12/10 1045 am : Dr. Islas But unfortunantly, he did not answer and does not have a voicemail set up. I will try calling the Patient again in a few hours. ABRAN Watson [facility] 12-04-2023 Telephone encounter Note Sent the information to Dilan Ball, then I will call the Patient to schedule. ABRAN Watson [facility] 12-03-2023 Telephone encounter Note Pt called [...] call and schedule. Thanks Cassie Greene RN [facility] 10-19-2023 Miscellaneous Notes [facility] pharmacy called they needed you to verify the refill amount is it 1 or 2 refills ? That id for the gabapentin This was addressed documented in this encounter [facility] 10-19-2023 Telephone encounter Note [facility] pharmacy called they needed you to verify the refill amount is it 1 or 2 refills ? [facility] 10-19-2023 Telephone encounter Note That id for the gabapentin [facility] 10-19-2023 Telephone encounter Note This was addressed [facility] 10-19-2023 History of Present illness Narrative Images from the original note were not included. [address] [place] [id number] SUBJECTIVE: Patient ID: Joselyn Carnes is [...] x2 Past Medical History: Diagnosis Date Cancer ([place]) Lymphoma ([place]) hodgkins Immunization History Administered Date(s) Administered COVID-19, [...] type - Ambulatory referral to Behavioral Health (Non-[facility]); Future Reorder gabapentin and lidocaine patches as [...] Cruz 10/19/23 1449 documented in this encounter [facility] 10-19-2023 Instructions JUVE Cruz - 10/19/2023 2:00 PM EDT Are You Ready To Kick The Habit? Free Tobacco Cessation Resources [facility] Tobacco Treatment Center Services [facility] Tobacco Treatment Centers provide all employees with free tobacco cessation services that include: Counseling to understand nicotine addiction Education about medications that can help you successfully quit Assistance with developing a plan to quit Call to set up an individual appointment or find out when group classes will be held: [facility]: [phone] [facility]: [phone] [facility]: [phone] [facility]: [phone] Quit Smoking Action Plan and Resources [facility] offers an eight-week, online smoking cessation plan to all [facility] employees, regardless of whether [place] is your medical insurance provider. Go to [email or web address].[email or web address]/[email or web address] ess and click the Health Risk Assessment and Resources link to get started. In the newMentor menu, click Action Plans instead of Health Risk Assessment to access the Quit Smoking Action Plan. Additional smoking cessation resources are also available to all [facility] employees on the Qxqtd8Xapxng web page at www.[employer]yp[employer]/quits paddy. [place] Tobacco Cessation Program If [place] is your medical insurance provider, there are more free resources available to you, including: No copays or deductibles on local tobacco cessation counseling services to help you quit Prescription assistance for tobacco cessation medications to help you quit For details about the tobacco cessation program available to [place] members, go to www.[employer]ScramblerMail (Search: Tobacco Cessation Program). [place] Tobacco Quit Line 3-963-OXUF-NOW ( ) is a toll-free, telephonic service that helps [place] residents quit smoking and using tobacco. It is staffed by experts who tailor a quit plan for you and provide you with advice. [place] Tobacco Quit Line 7-987-QNJN-NOW ( ) is a toll-free, telephonic service that helps [place] residents quit smoking and using tobacco. It is staffed by experts who tailor a quit plan for you and provide you with advice. Two weeks of nicotine replacement therapy may be provided at no charge, if needed. Additional Resources These national organizations also offer free information and resources to help you quit tobacco: [place] Cancer Society--www.cancer.org/healthy/s tayawayfromtobacco [place] Heart Association--www.heart.org (Search: Quit Smoking) Centers for Disease Control and Prevention--www.cdc.gov/tobacco [place] Lung Association--www.lungusa.org The following attachments cannot be sent through Care Everywhere.Attention Deficit Hyperactivity Disorder (ADHD) Discharge Instructions ([place]er)Psychotherapy ([place])documented in this encounter [facility] 10-09-2023 History of Present illness Narrative No Show documented in this encounter [facility] 10-09-2023 Note HNO ID: [id number] Author: SIMRAN NELSON APRN.CNP Service: ? Author Type: Nurse Practitioner Type: Progress Notes Filed: 10/09/2023 12:44 Note Text: No Show [facility] 09-29-2023 Miscellaneous Notes Referral to Oncology Behavioral Health - psychiatry. Patient previously no showed. Called today to reschedule, but patient's voicemail is not set up. Will continue to follow up. Kevin Monahan September 29, 2023 documented in this encounter [facility] 09-28-2023 Note HNO ID: [id number] Author: SIMRAN NELSON APRN.CNP Service: ? Author Type: Nurse Practitioner Type: Progress Notes Filed: 09/28/2023 16:21 Note Text: This note may have been partially generated using the MIOTtechon voice recognition system. While every effort was made to correct voice recognition errors, kindly be aware that some errors may occasionally occur. [facility] 09-28-2023 History of Present illness Narrative This note may have been partially generated using the MIOTtechon voice recognition system. While every effort was made to correct voice recognition errors, kindly be aware that some errors may occasionally occur. documented in this encounter [facility] 09-24-2023 Note HNO ID: [id number] Author: TOBI PLATA MD Service: ? Author Type: Physician Type: Progress Notes Filed: 09/24/2023 13:47 Note Text: Patient no showed on intake appointment to psychiatry on 09/22/2023. This is a late entry. Tobi Plata MD [facility] 09-24-2023 History of Present illness Narrative Patient no showed on intake appointment to psychiatry on 09/22/2023. This is a late entry. Tobi Plata MD documented in this encounter [facility] 08-17-2023 Instructions Barbara Wren - 08/17/2023 2:28 PM EST Referral to ENT RTC after ENT consultation and workup documented in this encounter [facility] 08-17-2023 History of Present illness Narrative Images from the original note were not included. NAME: Joselyn Carnes [facility] NO.: [id number] DATE OF SERVICE: August 17, 2023 ([facility]) Some elements in this clinic note that are critical to medical decision making have been carefully reviewed and included from a prior clinic note dated: July 29, 2023 (Sandy). Referring Provider: Self Additional Clinicians involved in [...] which included preparing to see the patient, lnjr-dw-tlgh patient care, completing clinical documentation, obtaining and/or reviewing separately obtained history, performing a medically appropriate examination, counseling and educating the patient/family/caregiver, ordering medications, tests, or procedures, independently interpreting results (not separately reported), communicating results to the patient/family/caregiver, and care coordination (not separately reported). Rich Hill MD, CPE Hematology and Oncology Services Provided at: [place], [place] Scribe Attestation: This note was scribed [...] provider on file. documented in this encounter [facility] 08-12-2023 Miscellaneous Notes Prior Authorization Documentation Prior authorization requested for: MEDICATION Butran 5 mcg TD patch Submitted via Cover [employer] Insurance Company Name: [employer] and Pharmacy Name: [facility] and Authorization approval #: AWAITING DETERMINATION Dates of Approval: from ? to ? Patient Assistance Needed: Yes, patient updated. Time Spent 20 Marialuisa Portillo RN August 12, 2023 documented in this encounter [facility] 08-12-2023 History of Present illness Narrative [...] 1250 PATIENT DISCHARGED TO: Ambulatory patient, left [place] department area. A Diagnostic radioactive procedure has taken place, with no further precautions necessary other than routine body substance precautions. More information regarding radiation safety can be found using this link: [email or web address] SIGNATURE: RT Diana(R) PATIENT NAME: Joselyn Carnes DATE: August 12, 2023 TIME: 3:04 PM PAGER/CONTACT #: documented in this encounter [facility] 08-11-2023 Instructions Simran Nelson APRN.LONGSHORE EQUIPMENT OPERATOR - 08/11/2023 3:19 PM EST Simran Nelson CNP Department of Palliative and Supportive Care Palliative Care - Specialty services in symptom management and support For questions or prescription refills, call: [phone] Thursday - Thursday 9AM-5PM BISHOP Baldwin, RN - Special Machine Stitcher Please call 3-5 days in advance for medication refills Evenings, Weekends, Holidays: [phone] (ask for palliative medicine on-call provider) For appointments, cancellations or reschedule, call: [phone] documented in this encounter [facility] 08-11-2023 History of Present illness Narrative PALLIATIVE MEDICINE INITIAL CONSULT SERVICE DATE: 08/11/2023 Referring Physician: Rich Hill MD [address] [place] [address] [place] [address] Medical Oncologist: Rich Hill MD Primary Physician: [...] Cigarettes, Chew REVIEW OF SYSTEMS: Modified ESAS ([place] Symptom Assessment Scale): Information Provided By: Patient [...] ear normal. Nose: Nose normal. Mouth/Throat: Lips: [place]. Mouth: Mucous membranes are moist. No oral [...] Agreement and Informed Consent: Signed today Simran Nelson, PSYCHIATRIC CLINICIAN, AIRPLANE PILOT SUPERVISOR.LONGSHORE EQUIPMENT OPERATOR Assessment & Plan (Z51.5) Palliative care by specialist (primary encounter diagnosis) - Introduced philosophy of palliative medicine - Discussed services offered by [facility] - Provided support - Discussed goals of [...] chronic pain severe enough to require daily, pixwff-esz-wlsuk, senior care opioid treatment AND ? Alternative treatment options [...] which included preparing to see the patient, lanh-ss-exqf patient care, completing clinical documentation, obtaining and/or [...] shared electronic medical record. Simran Nelson NP, AIRPLANE PILOT SUPERVISOR.LONGSHORE EQUIPMENT OPERATOR August 11, 2023 2:55 PM This note may have been partially generated using the You[employer] voice recognition system. While every effort was made to correct voice recognition errors, kindly be aware that some errors may occasionally occur. documented in this encounter [facility] 07-29-2023 Instructions Barbara Wren - 07/29/2023 4:06 PM EST Referral to palliative care PET/CT with labs RTC same day documented in this encounter [facility] 07-29-2023 History of Present illness Narrative Images from the original note were not included. NAME: Joselyn Carnes NO.: [id number] DATE OF SERVICE: July 29, 2023 (ankar) Referring Provider: Self Consultation requested by Self [...] suspected. Initial Visit, July 29, 2023: Joselyn Carnes [...] which included preparing to see the patient, jacm-pq-skhd patient care, completing clinical documentation, obtaining and/or reviewing separately obtained history, performing a medically appropriate examination, counseling and educating the patient/family/caregiver, ordering medications, tests, or procedures, independently interpreting results (not separately reported), communicating results to the patient/family/caregiver, and care coordination (not separately reported). Rich Hill MD, CPE Hematology and Oncology Services Provided at: [place], [place] Scribe Attestation: This note was scribed [...] provider on file. documented in this encounter [facility] 07-13-2018 History of Past i llness Narrative Problem Noted Date Resolved Date Bacteremia 07/13/2018 07/22/2018 Last Assessment & Plan: Assessment: Blood cx drawn here and at OSH + strep pyogenes Tissue culture from [facility] with GPC in pairs Blood clutures from 1/29 - NGTD PLAN: - cont Abx Severe [...] of this encounter (statuses as of 08/11/2021) [facility] History of Past illness Narrative* Problem [...] of this encounter (statuses as of 07/27/2023) [facility] of [facility] illness Narrative* Problem [...] of this encounter (statuses as of 08/01/2023) [facility] of [facility] Narrative* Problem [...] of this encounter (statuses as of 08/12/2023) [facility] of [facility] Narrative* Problem [...] of this encounter (statuses as of 08/12/2023) [facility] of [facility] Narrative* Problem [...] of this encounter (statuses as of 08/13/2023) [facility] of [facility] Narrative* Problem [...] of this encounter (statuses as of 08/18/2023) [facility] Narrative* Problem [...] of this encounter (statuses as of 09/25/2023) [facility] Narrative* Problem [...] of this encounter (statuses as of 09/29/2023) [facility] Narrative* Problem [...] of this encounter (statuses as of 09/30/2023) [facility] Diagnosis 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 Cancer associated pain Neoplasm related pain (acute) (chronic) Cigarette smoker one half pack a day or less Tobacco use disorder s/p 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[facility]) Bone marrow replaced by transplant [facility] Diagnosis Neoplasm related pain Neoplasm related pain (acute) (chronic) Post-traumatic osteoarthritis of multiple joints Drug-induced constipation Other constipation Insomnia due to medical condition Insomnia due to medical condition classified elsewhere [facility] Diagnosis Palliative care by specialist- Primary [...] Auditory hallucinations Hallucinations [facility] Diagnosis 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 Tonsillitis Acute tonsillitis 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HCC) Bone marrow replaced by transplant Abnormal finding on imaging Other nonspecific (abnormal) findings on radiological and other examinations of body structure [facility] Diagnosis Anxiety- Primary Anxiety state, unspecified Auditory hallucinations Hallucinations [facility] [place] [facility] Diagnosis NO SHOW- Primary documented in this encounter [facility]* Diagnosis 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 use disorder, severe, in early remission (HCC) Marijuana use disorder in remission Homicidal ideation [facility] [place] [facility]* Diagnosis Encounter for palliative care- Primary [facility] [place] [facility]* Diagnosis 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) Bone marrow replaced by transplant Abnormal finding on imaging Other nonspecific (abnormal) findings on radiological and other examinations of body structure [facility] [place] [facility]* Diagnosis Palliative care by specialist- Primary Neoplasm related pain Neoplasm related pain (acute) (chronic) Opioid contract exists Encounters for other specified administrative purpose Osteoarthritis of spine, unspecified spinal osteoarthritis complication status, unspecified spinal region 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) Drug-induced constipation Other constipation documented in this encounter [facility] note* Diagnosis Neoplasm related pain Neoplasm related pain (acute) (chronic) Osteoarthritis of spine, unspecified spinal osteoarthritis complication status, unspecified spinal region [facility] [place] [facility]* Diagnosis Right-sided chest wall pain- Primary [...] regions (HCC)- Primary documented in this encounter [facility] note* Diagnosis Right-sided chest wall pain- Primary [...] of body structure documented in this encounter [facility] note* Diagnosis Right-sided chest wall pain- Primary [...] multiple regions (HCC) [facility] Diagnosis Chronic pain syndrome- Primary Chronic left hip pain Muscle spasm Spasm of muscle Attention deficit hyperactivity disorder (ADHD), unspecified ADHD type [facility] Diagnosis Chronic pain syndrome Chronic left hip pain [facility]* Diagnosis Drug-induced erectile dysfunction- Primary documented [facility]* Diagnosis Chronic left hip pain- Primary Chronic pain syndrome Muscle spasm Spasm of muscle [facility]* Diagnosis Chronic pain syndrome Chronic left hip pain documented [facility]* Diagnosis Nodular lymphocyte [...] Tonsillitis Acute tonsillitis documented [facility]* Diagnosis Nodular lymphocyte [...] Tonsillitis Acute tonsillitis [facility] Diagnosis 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 Unspecified chorioretinitis Other specified retinal disorders Other specified retinal disorders 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 Unspecified chorioretinitis [facility]* Diagnosis 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 Unspecified chorioretinitis [facility]* Diagnosis Other specified retinal disorders [facility] Diagnosis Chronic midline low back pain with sciatica, sciatica laterality unspecified- Primary Right rotator cuff tear arthropathy [facility]* Diagnosis 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)- Primary 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) [facility]* Diagnosis 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) [facility]* Diagnosis 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)- Primary 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) [facility]* Diagnosis 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)- Primary 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) [facility]* Diagnosis 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)- Primary Abnormal findings on imaging test Other nonspecific (abnormal) findings on radiological and other examinations of body structure [facility]* Diagnosis 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)- Primary Abnormal findings on imaging test Other nonspecific (abnormal) findings on radiological and other examinations of body structure 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) [facility]* Diagnosis 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)- Primary Abnormal findings on imaging test Other nonspecific (abnormal) findings on radiological and other examinations of body structure 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) Preop examination- Primary Unspecified pre-operative examination [facility] Diagnosis Preop examination- Primary Unspecified pre-operative examination Preop examination Unspecified pre-operative examination [facility]* Diagnosis 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)- Primary [facility]* Diagnosis 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)- Primary 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) Inguinal lymphadenopathy Enlargement of lymph nodes [facility]* Diagnosis Lymphadenopathy- Primary Enlargement of lymph nodes [facility]* Diagnosis 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 ([facility]-H[facility]) documented [facility] this encounter [facility] SystemInstructionsNot on filedocumented in this encounter [facility]* Attachments The following attachments cannot be sent through Care Everywhere. * Erectile Dysfunction ([place]) documented in this [facility] System[facility]ructionsNot on file documented in this encounterPro[facility] SystemInstructionsNot on file documented in this encounterPro[facility] Cent[facility] SystemInstructionsNot on file documented in this encounterProNorth [facility] SystemInstructionsNot on file documented in this encounterProSouthern [facility] Cent[facility] Health SystemInstructionsNot on file documented in this encounterPro[facility] SystemInstructionsNot on file documented in this encounterProNorth [facility] Health SystemInstructionsNot on file documented in this encounterProSouthern [facility] CenterPlusmo SystemInstructionsNot on file documented in this encounterPro[facility]imon SystemInstructionsNot on file documented in this encounterPro[facility] SystemInstructionsNot on file documented in this encounterPro[facility] SystemInstructionsNot on file documented in this encounter[facility] SystemReason for referral (narrative)* Diagnostic Procedure Only (Routine) - Open Specialty Diagnoses / Procedures Referred By Contact Referred To Contact MOLECULAR & FUNCTIONAL IMAGING Diagnoses 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) Procedures NM PET/CT WHOLE BODY SUBSEQUENT PET IMAGING FOR CT ATTENUATION WHOLE BODY Rich Hill MD [address] [place] [address] Molecular & Functional Imaging [address] [place] [address] Referral ID Status Reason Start Date Expiration Date V isits Requested Visits Authorized [id number] Open Auto-Generate d Referral 07/29/2023 08/27/2024 1 1 [facility] for referral (narrative)* Diagnostic Procedure Only (Routine) - Open Specialty Diagnoses / Procedures Referred By Contact Referred To Contact MOLECULAR & FUNCTIONAL IMAGING Diagnoses 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) Abnormal finding on imaging Procedures NM PET/CT SKULL-THIGH SUBSEQUENT PET IMAGING CT ATTENUATION SKULL BASE MID-THIGH Rich Hill MD [address] [place] [address] [address] [place] [place] [id number] Molecular & Functional Imaging [address] [place] [address] Referral ID Status Reason Start Date Expiration Date V isits Requested Visits Authorized [id number] Open Auto-Generate d Referral 12/18/2023 01/16/2025 1 1 [facility] for referral (narrative)* Diagnostic Procedure Only (Routine) - Closed Specialty Diagnoses / Procedures Referred By Contact Referred To Contact MOLECULAR & FUNCTIONAL IMAGING Diagnoses 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) Abnormal finding on imaging Procedures NM PET/CT SKULL-THIGH SUBSEQUENT PET IMAGING CT ATTENUATION SKULL BASE MID-THIGH Rich Hill MD [address] [place] [address] [place] [address] Molecular & Functional Imaging [address] [place] [address] Referral ID Status Reason Start Date Expiration Date V isits Requested Visits Authorized [id number] Closed Auto-Generate d Referral 01/04/2024 02/02/2024 1 1 [facility] for referral (narrative)* Diagnostic Procedure Only (Routine) - Closed Specialty Diagnoses / Procedures Referred By Contact Referred To Contact MOLECULAR & FUNCTIONAL IMAGING Diagnoses 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) Procedures NM PET/CT WHOLE BODY SUBSEQUENT PET IMAGING FOR CT ATTENUATION WHOLE BODY Rich Hill MD [address] [place] [address] [place] [address] Molecular & Functional Imaging [address] [place] [address] Referral ID Status Reason Start Date Expiration Date V isits Requested Visits Authorized [id number] Closed Auto-Generate d Referral 08/12/2023 06/14/2024 1 1 [facility] for referral (narrative)* Consultation (Routine) - Pending Review Specialty Diagnoses / Procedures Referred By Geraldine marlow Referred To Contact Behavioral Health Diagnoses Attention deficit hyperactivity disorder (ADHD), unspecified ADHD type Shanthi Lu APRN-HERACLIO [address] [place] [address] [facility] [address] [place] [address] Referral ID Status Reason Start Date Expiration Date Visits Requested Visits Authorized [id number] Pending Review Specialty Services Required 10/19/2023 10/18/2024 1 1 * Medication Prior Authorization - Closed Specialty Diagnoses / Procedures Referred By Contsimba t Referred To Contact Diagnoses Chronic pain syndrome Chronic left hip pain Shanthi Lu APRN-HERACLIO [address] [place] [address] Referral ID Status Reason Start Date Expiration Date Visits Re quested Visits Authorized [id number] Closed 1 1 [facility] Summary Purpose Family History No Family History Records FoundNo Family History Records FoundNo Family History Records FoundNo Family History Records FoundNo Family History Records FoundNo Family History Records FoundNo Family History Records FoundNo Family History Records FoundNo Family History Records Found Advance Directives Documents on File Type Date Recorded 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 Advance Directive(s) Advance Directive(s) 08/11/2018 9:03 AM Advance Directive(s) 01/28/2017 8:08 AM Advance Directive(s) 01/14/2017 2:06 PM Advance Directive(s) 11/19/2016 3:00 PM Documents on File Type Date Recorded 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 Advance Directive(s) 11/19/2016 3:00 PM Documents on File Type Date Recorded 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 Advance Directive(s) 11/19/2016 3:00 PM Reason for Referral Specialty Diagnoses / Procedures Referred By Contac t Referred To Contact Diagnoses 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 Simran Nelson APRN.LONGSHORE EQUIPMENT OPERATOR [address] [place] [address] Referral ID Status Reason Start Date Expiration Date V isits Requested Visits Authorized [id number] Pending Review 1 1 Specialty Diagnoses / Procedures Referred By Contac t Referred To Contact Ent - Otolaryngology Diagnoses Tonsillitis 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) Abnormal finding on imaging Procedures CONSULT TO ENT OFFICE/OUTPATIENT NEW HIGH MDM 60 MINUTES Rich Hill MD [address] [place] [address] [place] [address] Referral ID Status Reason Start Date Expiration Date Visits Requested Visits Authorized [id number] Authorized PCP Requested Referral 08/17/2023 08/16/2024 1 1 Specialty Diagnoses / Procedures Referred By Contac t Referred To Contact Diagnoses Chronic pain syndrome Chronic left hip pain Lu, Shanthi J, AIRPLANE PILOT SUPERVISOR-LONGSHORE EQUIPMENT OPERATOR [address] [place] [address] Referral ID Status Reason Start Date Expiration Date Visits Re quested Visits Authorized [id number] Closed 1 1 Specialty Diagnoses / Procedures Referred By Contac t Referred To Contact Diagnoses Pre-op testing Procedures ECG 12 lead Fortunato Grady MD [address] [place] [address] Referral ID Status Reason Start Date Expiration Date V isits Requested Visits Authorized [id number] Pending Review 02/01/2024 01/31/2025 1 1 Additional Source Comments (unrecognized sect ion and content) No Status Records FoundNo Status Records FoundNo Status Records FoundNo Status Records FoundNo Status Records FoundNo Status Records FoundNo Status Records FoundNo Status Records FoundNo Status Records Found INFORMATION SOURCE (unrecogn ized section and content) DATE CREATED AUTHOR 12/18/2018 [facility] DATE CREATED AUTHOR AUTHOR'S ORGANIZ ATION 12/27/2018 [facility] DATE CREATED AUTHOR AUTHOR'S ORGANIZ ATION 05/26/2021 [facility] DATE CREATED AUTHOR AUTHOR'S ORGANIZ ATION 06/12/2022 [place] DATE CREATED AUTHOR AUTHOR'S ORGANIZ ATION 08/15/2023 [facility] DATE CREATED AUTHOR AUTHOR'S ORGANIZ ATION 02/09/2024 [facility] DATE CREATED AUTHOR AUTHOR'S ORGANIZ ATION 09/17/2024 [facility] DATE CREATED AUTHOR AUTHOR'S ORGANIZ ATION 01/21/2025 [facility] DATE CREATED AUTHOR AUTHOR'S ORGANIZ ATION 01/31/2025 [facility] Ambulatory [facility] Source Comments (unrecognize d section and content) In the event this informatio n is protected by the Federal Confidentiality of Alcohol and Drug Abuse Patient Records regulations: The Federal rules restrict any use of the information to criminally investigate or prosecute any alcohol or drug abuse patient.[facility] the event this information is protected by the Federal Confidentiality of Alcohol and Drug Abuse Patient Records regulations: The Federal rules restrict any use of the information to criminally investigate or prosecute any alcohol or drug abuse patient.[facility] HospitalIn the event this information is protected by the Federal Confidentiality of Alcohol and Drug Abuse Patient Records regulations: The Federal rules restrict any use of the information to criminally investigate or prosecute any alcohol or drug abuse patient.[facility] HospitalIn the event this information is protected by the Federal Confidentiality of Alcohol and Drug Abuse Patient Records regulations: The Federal rules restrict any use of the information to criminally investigate or prosecute any alcohol or drug abuse patient.[facility] HospitalIn the event this information is protected by the Federal Confidentiality of Alcohol and Drug Abuse Patient Records regulations: The Federal rules restrict any use of the information to criminally investigate or prosecute any alcohol or drug abuse patient.[facility] the event this information is protected by the Federal Confidentiality of Alcohol and Drug Abuse Patient Records regulations: The Federal rules restrict any use of the information to criminally investigate or prosecute any alcohol or drug abuse patient.[facility] HospitalIn the event this information is protected by the Federal Confidentiality of Alcohol and Drug Abuse Patient Records regulations: The Federal rules restrict any use of the information to criminally investigate or prosecute any alcohol or drug abuse patient.[facility] HospitalIn the event this information is protected by the Federal Confidentiality of Alcohol and Drug Abuse Patient Records regulations: The Federal rules restrict any use of the information to criminally investigate or prosecute any alcohol or drug abuse patient.[facility] HospitalIn the event this information is protected by the Federal Confidentiality of Alcohol and Drug Abuse Patient Records regulations: The Federal rules restrict any use of the information to criminally investigate or prosecute any alcohol or drug abuse patient.[facility] HospitalIn the event this information is protected by the Federal Confidentiality of Alcohol and Drug Abuse Patient Records regulations: The Federal rules restrict any use of the information to criminally investigate or prosecute any alcohol or drug abuse patient.[facility] HospitalIn the event this information is protected by the Federal Confidentiality of Alcohol and Drug Abuse Patient Records regulations: The Federal rules restrict any use of the information to criminally investigate or prosecute any alcohol or drug abuse patient.[facility] HospitalIn the event this information is protected by the Federal Confidentiality of Alcohol and Drug Abuse Patient Records regulations: The Federal rules restrict any use of the information to criminally investigate or prosecute any alcohol or drug abuse patient.[facility] HospitalIn the event this information is protected by the Federal Confidentiality of Alcohol and Drug Abuse Patient Records regulations: The Federal rules restrict any use of the information to criminally investigate or prosecute any alcohol or drug abuse patient.[facility] HospitalIn the event this information is protected by the Federal Confidentiality of Alcohol and Drug Abuse Patient Records regulations: The Federal rules restrict any use of the information to criminally investigate or prosecute any alcohol or drug abuse patient.[facility] HospitalIn the event this information is protected by the Federal Confidentiality of Alcohol and Drug Abuse Patient Records regulations: The Federal rules restrict any use of the information to criminally investigate or prosecute any alcohol or drug abuse patient.[facility] HospitalIn the event this information is protected by the Federal Confidentiality of Alcohol and Drug Abuse Patient Records regulations: The Federal rules restrict any use of the information to criminally investigate or prosecute any alcohol or drug abuse patient.[facility] HospitalIn the event this information is protected by the Federal Confidentiality of Alcohol and Drug Abuse Patient Records regulations: The Federal rules restrict any use of the information to criminally investigate or prosecute any alcohol or drug abuse patient.[facility] HospitalIn the event this information is protected by the Federal Confidentiality of Alcohol and Drug Abuse Patient Records regulations: The Federal rules restrict any use of the information to criminally investigate or prosecute any alcohol or drug abuse patient.[facility] HospitalIn the event this information is protected by the Federal Confidentiality of Alcohol and Drug Abuse Patient Records regulations: The Federal rules restrict any use of the information to criminally investigate or prosecute any alcohol or drug abuse patient.[facility] HospitalIn the event this information is protected by the Federal Confidentiality of Alcohol and Drug Abuse Patient Records regulations: The Federal rules restrict any use of the information to criminally investigate or prosecute any alcohol or drug abuse patient.[facility] HospitalIn the event this information is protected by the Federal Confidentiality of Alcohol and Drug Abuse Patient Records regulations: The Federal rules restrict any use of the information to criminally investigate or prosecute any alcohol or drug abuse patient.[facility] HospitalIn the event this information is protected by the Federal Confidentiality of Alcohol and Drug Abuse Patient Records regulations: The Federal rules restrict any use of the information to criminally investigate or prosecute any alcohol or drug abuse patient.[facility] HospitalIn the event this information is protected by the Federal Confidentiality of Alcohol and Drug Abuse Patient Records regulations: The Federal rules restrict any use of the information to criminally investigate or prosecute any alcohol or drug abuse patient.[facility] HospitalIn the event this information is protected by the Federal Confidentiality of Alcohol and Drug Abuse Patient Records regulations: The Federal rules restrict any use of the information to criminally investigate or prosecute any alcohol or drug abuse patient.[facility] HospitalIn the event this information is protected by the [facility] Confidentiality of Alcohol and Drug Abuse Patient Records regulations: The Federal rules restrict any use of the information to criminally investigate or prosecute any alcohol or drug abuse patient.[facility] HospitalIn the event this information is protected by the Federal Confidentiality of Alcohol and Drug Abuse Patient Records regulations: The Federal rules restrict any use of the information to criminally investigate or prosecute any alcohol or drug abuse patient.[facility] Care Teams (unrecognized sec tion and content) Plug Paster Relationship Specialty Start Date End Date Dilcia Ramirez [address] [place] [address] [address] [place] [address] PCP - General Family Practice 04/22/16 12/19/18 [place] [address] [place] [place], [place] [id number] Physician Blood and Marrow Transplant 11/17/16 Lupis Bass (Eitan) [address] [place] [address] Equipment Operator [employer] Blood and Marrow Transplant 01/07/17 Hannah Henson MD [address] [place] [address] Primary Staff Physician Cardiology 08/31/18 Hannah Henson MD [address] [facility] [place] [address] Primary Staff Physician Cardiology 08/31/18 Plug Paster Relationship Specialty Start [place] [address] [place] [address] Physician Blood and Marrow Transplant 11/17/16 Lupis Bass () [address] [place] [address] Equipment Operator [employer] Blood and Marrow Transplant 01/07/17 Hannah Henson MD [address] [place] [address] Primary Staff Physician Cardiology 08/31/18 Plug Paster Relationship Specialty Start [place] [address] [place] [address] Physician Blood and Marrow Transplant 11/17/16 Lupis Bass () [address] [place] [address] Equipment Operator [employer] Blood and Marrow Transplant 01/07/17 Hannah Henson MD [address] [place] [address] Primary Staff Physician Cardiology 08/31/18 Plug Paster Relationship Specialty Start [place] [address] [place] [address] Physician Blood and Marrow Transplant 11/17/16 Lupis Bass () [address] [place] [address] Equipment Operator [employer] Blood and Marrow Transplant 01/07/17 Hannah Henson MD [address] [place] [address] Primary Staff Physician Cardiology 08/31/18 Plug Paster Relationship Specialty Start [place] [address] [place] [address] Physician Blood and Marrow Transplant 11/17/16 Lupis Bass () [address] [place] [address] Equipment Operator [employer] Blood and Marrow Transplant 01/07/17 Hannah Henson MD [address] [place] [address] Primary Staff Physician Cardiology 08/31/18 Plug Paster Relationship Specialty Start Date [place] [address] [place] [address] Physician Blood and Marrow Transplant 11/17/16 Lupis Bass () [address] [place] [address] Equipment Operator [employer] Blood and Marrow Transplant 01/07/17 Hannah Henson MD [address] [place] [address] Primary Staff Physician Cardiology 08/31/18 Plug Paster Relationship Specialty Start Date [place] [address] [place] [address] Physician Blood and Marrow Transplant 11/17/16 Lupis Bass () [address] [place], [place] [address] Equipment Operator [employer] Blood and Marrow Transplant 01/07/17 Hannah Henson MD [address] [place] [address] Primary Staff Physician Cardiology 08/31/18 Plug Paster Relationship Specialty Start [place] [address] [place] [address] Physician Blood and Marrow Transplant 11/17/16 Lupis Bass () [address] [facility] [place] [place] [address] Equipment Operator [employer] Yard Blood and Marrow Transplant 01/07/17 Hannah Henson MD [address] [place] [address] Primary Staff Physician Cardiology 08/31/18 Simran Nelson APRN.[employer] EQUIPMENT OPERATOR [address] [place] [address] [place] [address] Hospice & Palliative Medicine 08/19/23 Marialuisa Portillo, RN Specialty Special Machine Stitcher Hospice & Palliative Medicine 08/19/23 Plug Paster Relationship Specialty Start Date [place] [address] [place] [address] Physician Blood and Marrow Transplant 11/17/16 Lupis Bass () [address] [facility] [place] [place] [address] Equipment Operator [employer] Blood and Marrow Transplant 01/07/17 Hannah Henson MD [address] [place], [place] [address] Primary Staff Physician Cardiology 08/31/18 Simran Nelson, AIRPLANE PILOT SUPERVISOR.[employer] EQUIPMENT OPERATOR [address] [place] [address] [place] [address] Hospice & Palliative Medicine 08/19/23 Marialuisa Portillo RN Specialty Special Machine Stitcher Hospice & Palliative Medicine 08/19/23 Plug Paster Relationship Specialty Start [place] [address] [place] [address] Physician Blood and Marrow Transplant 11/17/16 Lupis Bass () [address] [place] [address] Equipment Operator [employer] Yard Blood and Marrow Transplant 01/07/17 Hannah Henson MD [address] [place] [address] Primary Staff Physician Cardiology 08/31/18 Simran Nelson, AIRPLANE PILOT SUPERVISOR.[employer] EQUIPMENT OPERATOR [address] [place] [address] [place] [address] Hospice & Palliative Medicine 08/19/23 Marialuisa Portillo RN Specialty Special Machine Stitcher Hospice & Palliative Medicine 08/19/23 Plug Paster Relationship Specialty Start Date [place] [address] [place] [address] Physician Blood and Marrow Transplant 11/17/16 Lupis Bass () [address] [place] [address] Equipment Operator [employer] Yard Blood and Marrow Transplant 01/07/17 Hannah Henson MD [address] [place] [address] Primary Staff Physician Cardiology 08/31/18 Simran Nelson, AIRPLANE PILOT SUPERVISOR.[employer] EQUIPMENT OPERATOR [address] [place] [address] [place] [phone] Hospice & Palliative Medicine 08/19/23 Marialuisa Portillo RN Specialty Special Machine Stitcher Hospice & Palliative Medicine 08/19/23 Plug Paster Relationship Specialty Start [place] [address] [place] [address] Physician Blood and Marrow Transplant 11/17/16 Lupis Bass () [address] [place], [place] [address]408695 Equipment Operator [employer] Yard Blood and Marrow Transplant 01/07/17 Hannah Henson MD [address] [place] [address] Primary Staff Physician Cardiology 08/31/18 Simran Nelson, AIRPLANE PILOT SUPERVISOR.[employer] EQUIPMENT OPERATOR [address] [place] [address] [place] [address] Hospice & Palliative Medicine 08/19/23 Marialuisa Portillo RN Specialty Special Machine Stitcher Hospice & Palliative Medicine 08/19/23 Plug Paster Relationship Specialty Start [place] [address] [place] [address] Physician Blood and Marrow Transplant 11/17/16 Lupis Bass () [address] [place], [place] 3855995 Equipment Operator [employer] Yard Blood and Marrow Transplant 01/07/17 Hannah Henson MD [address] [place] [address] Primary Staff Physician Cardiology 08/31/18 Simran Nelson, AIRPLANE PILOT SUPERVISOR.[employer] EQUIPMENT OPERATOR [address] [place] [address] [place] [phone] Hospice & Palliative Medicine 08/19/23 Marialuisa Portillo RN Specialty Special Machine Stitcher Hospice & Palliative Medicine 08/19/23 Plug Paster Relationship Specialty Start [place] [address] [place] [address] Physician Blood and Marrow Transplant 11/17/16 Lupis Bass () [address] [place] [address] Equipment Operator [employer] Yard Blood and Marrow Transplant 01/07/17 Hannah Henson MD [address] [place] [address] Primary Staff Physician Cardiology 08/31/18 Simran Nelson, AIRPLANE PILOT SUPERVISOR.[employer] EQUIPMENT OPERATOR [address] [place] [address] [place] [phone] Hospice & Palliative Medicine 08/19/23 Marialuisa Poritllo RN Specialty Special Machine Stitcher Hospice & Palliative Medicine 08/19/23 Plug Paster Relationship Specialty Start [place] [address] [place] [address] Physician Blood and Marrow Transplant 11/17/16 Lupis Bass () [address] [place], [place] 7110095 Equipment Operator [employer] Yard Blood and Marrow Transplant 01/07/17 Hannah Henson MD [address] [facility] [place] [place] [address] Primary Staff Physician Cardiology 08/31/18 Simran Nelson, AIRPLANE PILOT SUPERVISOR.[employer] EQUIPMENT OPERATOR [address] [place] [address] [place] [address] Hospice & Palliative Medicine 08/19/23 Marialuisa Portillo RN Specialty Special Machine Stitcher Hospice & Palliative Medicine 08/19/23 Plug Paster Relationship Specialty Start [place] [address] [place] [address] Physician Blood and Marrow Transplant 11/17/16 Lupis Bass () [address] [place] [address] Equipment Operator [employer] Yard Blood and Marrow Transplant 01/07/17 Hannah Henson MD [address] [place], [place] [address]95 Primary Staff Physician Cardiology 08/31/18 Simran Nelson, AIRPLANE PILOT SUPERVISOR.[employer] EQUIPMENT OPERATOR [address] [place] [address] [place] [phone] Hospice & Palliative Medicine 08/19/23 Marialuisa Portillo RN Specialty Special Machine Stitcher Hospice & Palliative Medicine 08/19/23 Plug Paster Relationship Specialty Start [place] [address] [place] [address] Physician Blood and Marrow Transplant 11/17/16 Lupis Bass () [address] [place], [place] 987[address]95 Equipment Operator [employer] Yard Blood and Marrow Transplant 01/07/17 Hannah Henson MD [address] [facility] [place] [place] [address] Primary Staff Physician Cardiology 08/31/18 Simran Nelson, AIRPLANE PILOT SUPERVISOR.[employer] EQUIPMENT OPERATOR [address] [place] [address] [place] [address] Hospice & Palliative Medicine 08/19/23 Marialuisa Portillo, RN Specialty Special Machine Stitcher Hospice & Palliative Medicine 08/19/23 Plug Paster Relationship Specialty Start [place] [address] [place] [address] Physician Blood and Marrow Transplant 11/17/16 Lupis Bass () [address] [place] [address] Equipment Operator [employer] Yard Blood and Marrow Transplant 01/07/17 Hannah Henson MD [address] [place] [address] Primary Staff Physician Cardiology 08/31/18 Simran Nelson, AIRPLANE PILOT SUPERVISOR.[employer] EQUIPMENT OPERATOR [address] [place] [address] [place] [address] Hospice & Palliative Medicine 08/19/23 Marialuisa Portillo, RN Specialty Special Machine Stitcher Hospice & Palliative Medicine 08/19/23 Plug Paster Relationship Specialty Start Date [place] [address] [place] [address] Physician Blood and Marrow Transplant 11/17/16 Lupis Bass () [address] [place], [place] [address]85[address] Equipment Operator [employer] Yard Blood and Marrow Transplant 01/07/17 Hannah Henson MD [address] [place] [address] Primary Staff Physician Cardiology 08/31/18 Simran Nelson APRN.[facility] [address] [place] [address] [place] [phone] Hospice & Palliative Medicine 08/19/23 Marialuisa Portillo, RN Specialty Special Machine Stitcher Hospice & Palliative Medicine 08/19/23 Plug Paster Relationship Specialty Start [place] [address] [place] [address] Physician Blood and Marrow Transplant 11/17/16 Lupis Bass () [address] [place] [address] Equipment Operator [employer] Yard Blood and Marrow Transplant 01/07/17 Hannah Henson MD [address] [place] [address] Primary Staff Physician Cardiology 08/31/18 Plug Paster Relationship Specialty Start Date End Date Shanthi Lu APRN-[employer] EQUIPMENT OPERATOR [address] [place] [phone] PCP - General Family Medicine 10/19/23 Plug Paster Relationship Specialty Start Date End Date Shanthi Lu APRN-[employer] EQUIPMENT OPERATOR [address] [place] [address] PCP - General Family Medicine 10/19/23 Plug Paster Relationship Specialty Start Date End Date Shanthi Lu APRN-[employer] EQUIPMENT OPERATOR [address] [place] [address] PCP - General Family Medicine 10/19/23 Plug Paster Relationship Specialty Start Date End Date [facility] [address] [place] [address] PCP - General Family Medicine 10/19/23 Plug Paster Relationship Specialty Start Date End Date Shanthi Lu [facility] [address] [place] [address] PCP - General Family Medicine 10/19/23 Plug Paster Relationship Specialty Start Date End Date Shanthi Lu [facility] [address] [place] [address] PCP - General Family Medicine 10/19/23 Plug Paster Relationship Specialty Start Date End Date Shanthi Lu [facility] [address] [place] [address] PCP - General Family Medicine 10/19/23 Plug Paster Relationship Specialty Start Date End Date Shanthi Lu [facility] [address] [place] [address] PCP - General Family Medicine 10/19/23 Plug Paster Relationship Specialty Start Date End Date Shanthi Lu [facility] [address] [place] [address] PCP - General Family Medicine 10/19/23 Plug Paster Relationship Specialty Start Date End Date Shanthi Lu AIRPLANE PILOT SUPERVISOR-[employer] E[employer]IP[employer] OPERATOR [address] [place] [address] PCP - General Family Medicine 10/19/23 Plug Paster Relationship Specialty Start Date End Date Shanthi Lu AIRPLANE PILOT SUPERVISOR-[employer] EQUIPMENT OPERATOR [address] [place] [address] PCP - General Family Medicine 10/19/23 Plug Paster Relationship Specialty Start Date End Date Shanthi Lu AIRPLANE PILOT SUPERVISOR-[employer] EQUIPMENT OPERATOR [address] [place] [address] PCP - General Family Medicine 10/19/23 Plug Paster Relationship Specialty Start [place] [address] [place] [address] Physician Blood and Marrow Transplant 11/17/16 Lupis Bass () [address] [place], [place] [address] Equipment Operator [employer] Yard Blood and Marrow Transplant 01/07/17 Hannah Henson MD [address] [place] [address] Primary Staff Physician Cardiology 08/31/18 Simran Nelson, AIRPLANE PILOT SUPERVISOR.[employer] EQUIPMENT OPERATOR [address] [place] [address] [place] [address] Hospice & Palliative Medicine 08/19/23 Marialuisa Portillo, RN Specialty Special Machine Stitcher Hospice & Palliative Medicine 08/19/23 Plug Paster Relationship Specialty Start Date End Date Shanthi Lu AIRPLANE PILOT SUPERVISOR-[employer] EQUIPMENT OPERATOR [address] [place] [address] PCP - General Family Medicine 10/19/23 Plug Paster Relationship Specialty Start Date End Date Shanthi Lu [facility] [address] [place] [address] PCP - General Family Medicine 10/19/23 Plug Paster Relationship Specialty Start Date End Date Shanthi Lu [facility] [address] [place] [address] PCP - General Family Medicine 10/19/23 Plug Paster Relationship Specialty Start Date End Date Sahnthi Lu [facility] [address] [place] [address] PCP - General Family Medicine 10/19/23 Plug Paster Relationship Specialty Start Date End Date Shanthi Lu [facility] [address] [place] [address] PCP - General Family Medicine 10/19/23 Plug Paster Relationship Specialty Start Date End Date [facility]hi [facility] [address] PM 12/12/24 [place] [address] PCP - General Family Medicine 10/19/23 Plug Paster Relationship Specialty Start Date End Date Shanthi Lu [facility] [address] LEFT PM 12/12/24 [place] [address] PCP - General Family Medicine 10/19/23 Plug Paster Relationship Specialty Start Date End Date Shanthi Lu AIRPLANE PILOT SUPERVISOR-[facility] [address] LEFT PM 12/12/24 [place] [address] PCP - General Family Medicine 10/19/23 Plug Paster Relationship Specialty Start Date End Date [facility]anthi [facility] [address] LEFT PM 12/12/24 [place] [address] PCP - General Family Medicine 10/19/23 Plug Paster Relationship Specialty Start Date End Date No Pcp, [place] [address] PCP - General Family Medicine 01/11/25 01/11/25 Plug Paster Relationship Specialty Start Date End Date Miah Zamarripa, [facility] [address] [place] [address] PCP - General Internal Medicine 01/12/25 Plug Paster Relationship Specialty Start Date End Date Miah Zamarripa, [facility] [address] [place] [address] PCP - General Internal Medicine 01/12/25 Plug Paster Relationship Specialty Start Date End Date Miah Zamarripa, AIRPLANE P[employer] SUPERVISOR-[facility] [address] [place] [address] PCP - General Internal Medicine 01/12/25 Plug Paster Relationship Specialty Start Date End Date Miah Zamarripa, AIRPLANE P[employer] SUPERVISOR-[facility] [address] [place] [address] PCP - General Internal Medicine 7/31/25 Reason for Visit (unrecogniz ed section and [...] ATTENUATION SK[employer] [place] Rich Hill MD [address] [place] [address] [place] [address] Molecular & Functional Imaging [address] [place] [address] Referral ID Status Reason Start Date Expiration Date V isits Requested Visits Authorized [id number] Closed Auto-Generate d Referral 01/04/2024 02/02/2024 1 1 Specialty Diagnoses / Procedures Referred By Contact Referred To Contact MOLECULAR & FUNCTIONAL IMAGING Diagnoses 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 [place] [address] Referral ID Status Reason Start Date Expiration Date Visits Requested Visits Authorized [id number] Pending Review Specialty Services Required 12/22/2023 12/21/2024 1 1 Reason Onset Date Comments Med Refill 03/28/2024 Reason Comments Eye Exam Specialty Diagnoses / Procedures Referred By Contac t Referred To Contact Ophthalmology Diagnoses Toxoplasmosis Chorioretinitis of both eyes Oliva Cornell, OD [address] [facility] [address] [place] [address] Phone: tel: [facility] [address] [place] [address] Phone: tel: fax: Referral ID Status Reason Start Date Expiration Date V isits Requested Visits Authorized [id number] Closed Specialty Services Required 07/14/2024 07/14/2025 1 [...] solid organ excluding spleen (CMS-HCC) Shanthi Lu, AIRPLANE PILOT SUPERVISOR-[employer] [address] [place] [address] Phone: tel: fax: Jovita Moreno [facility] [address] [place] [address] Phone: tel: fax: Referral ID Status Reason Start Date Expiration Date V isits Requested Visits Authorized [id number] Closed Specialty Services Required 10/26/2024 10/26/2025 1 1 Reason Comments Follow-up Reason Comments NEEDS BIOPSY OF LYMPH NODE I N RIGHT GROIN AREA EXCISIONAL BIOPSY POSSIBLE HODGKIN LYMPH JOSE DANIEL OF RIGHT GROIN, REFERRED BY DR GARCIA Specialty Diagnoses / Procedures Referred By Geraldine marlow Referred To Contact General Surgery Diagnoses 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) Abnormal findings on imaging test 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) Valdemar Garcia MD [address] [place] [address] Phone: tel: fax: [facility] [address] [place] [address] Phone: tel: fax: Referral ID Status Reason Start Date Expiration Date V isits Requested Visits Authorized [id number] Closed Specialty Services Required 12/30/2024 12/30/2025 1 1 Reason Comments Post-op Post op right inguin al lymph node biopsy performed 01/16/25 at [facility] Reason Comments Med Change Request FOR RECORDS PERTAINING TO PATIENTS WHO ARE [...] BE BASED ON THE PRIMARY CLINICAL RECORDS. [employer] provides no warranty or guarantee of the accuracy or completeness of information in this document.
[2025-02-07 18:51] LABS: Hematocrit 40.7 % (42.0-54.0); Hemoglobin 14.2 g/dL (14.0-18.0); Immature Granulocytes Abs Auto 0.02 10^3/uL (0.00-0.03); Immature Granulocytes Pct Auto 0.3 % (0.0-0.5); Lymphocytes Absolute Auto 0.7 10^3/uL (1.2-3.8); Mean Corpuscular HGB Conc 34.9 g/dL (29.9-35.2); Mean Corpuscular Hemoglobin 30.9 pg (25.9-34.0); Mean Corpuscular Volume 88.5 fL (80.0-94.0); Platelet Count 178 10^3/uL (150-450); Red Blood Count 4.60 10^6/uL (4.70-6.10); White Blood Count 7.4 10^3/uL (4.0-11.0)
[2025-02-07] MEDS: IPRATROPIUM/ALBUTEROL SULFATE 3 ML AMPUL.NEB IH ×2 (18:54→22:52)
[2025-02-07 19:02] LABS: Alanine Aminotransferase 44 U/L (16-63); Albumin Globulin Ratio 1.3; Albumin Level 4.1 g/dL (3.4-5.0); Alkaline Phosphatase 111 U/L (46-116); Anion Gap 10.1; Aspartate Amino Transferase 27 U/L (15-37); Blood Urea Nitrogen 14.0 mg/dL (7.0-18.0); Calcium 8.2 mg/dL (8.5-10.1); Carbon Dioxide 27.5 mmol/L (21.0-32.0); Chloride 102 mmol/L (98-107); Estimated GFR (African America >60 (>=60 mL/min/1.73m^2); Estimated GFR (Non-African Ame >60 (>=60 mL/min/1.73m^2); Globulin 3.2 g/dL; Glucose 93 mg/dL (74-106); Potassium 3.6 mmol/L (3.5-5.1); Sodium 136 mmol/L (136-145); Total Protein 7.3 g/dL (6.4-8.2)
[2025-02-07 19:09] LABS: NT Pro B Type Natriuretic Pept 60.0 pg/mL (<=450.0)
--- NOTE | 2025-02-07 19:37 | ED.GENADUL1 ---
HPI HPI - General Adult General Chief complaint: Shortness of Breath/Dyspnea Stated complaint: CHEST CONGESTED/ VOMITING/ GROIN PAIN Time Seen by Provider: 02/07/25 18:13 Source: patient Mode of arrival: walk-in Limitations: no limitations History of Present Illness HPI narrative: 44-year-old male with a history of Hodgkin's lymphoma presents with a chief complaint of fatigue, shortness of breath and chills. He states symptoms began when he woke this morning. Upon arrival to the emergency room patient was tachycardic, tachypneic and pulse ox was 89% on room air. Patient is not currently under any treatment for his Hodgkin's lymphoma he is a poor historian states he sees his oncologist in approximately 1 month. He cannot recall his name but says he does see him in [place]. Patient denies any chest pain. Denies wearing any oxygen at home. He was seen here in the emergency room on January 25 for a seroma to the right groin status post biopsy of his groin. He states he has not heard or know the details of that biopsy. States he has smoked on and off since he was a young child. Denies ever being diagnosed with COPD. States he quit smoking several months ago. Patient denies any recent hospitalization or admission for pneumonias. Related Data Home Medications ?Medication ?Instructions ?Recorded ?Confirmed benzonatate 100 mg capsule mg PO 11/24/24 cyclobenzaprine 10 mg tablet mg 11/24/24 gabapentin 300 mg capsule mg 11/24/24 lumateperone 21 mg capsule mg PO 11/24/24 (Caplyta) lumateperone 10.5 mg capsule mg PO 12/05/24 (Caplyta) Previous Rx's ?Medication ?Instructions ?Recorded aspirin 81 mg capsule 81 mg PO DAILY #30 caps 01/27/24 doxycycline hyclate 100 mg capsule 100 mg PO BID 10 days #20 caps 11/24/24 kmmviktu-jqeyvmuiq-dshlgxwrq 3.5 4 drp otic (ear) Q8H 10 days #10 mL 11/24/24 mg-10,000 unit/mL-1 % ear drops,susp Allergies Allergy/AdvReac Type Severity Reaction Status Date / Time Sulfa (Sulfonamide Allergy Severe icthy Verified 02/07/25 18:09 Antibiotics) sulfamethoxazole (From Allergy Severe hives Verified 02/07/25 18:09 Bactrim) trimethoprim (From Bactrim) Allergy Severe hives Verified 02/07/25 18:09 Opioid HPI Opioid Management Most Recent Opioid Data: Last Pain Scale 7 Today, 18:09 Last MAR Pain Assessment Today, 20:57 Review of Systems ROS Status of ROS 10 or more systems reviewed and unremarkable except as noted in history and below PFSH PFSH Social History Little interest or pleasure in doing things: not at all Feeling down, depressed, or hopeless: not at all Exam Narrative Exam Narrative: All Systems are negative except as noted/marked.All systems reviewed and otherwise negative Nurses note and vital signs reviewed and patient is not hypoxic. General: The patient appears ill, mild respiratory distress, able to speak full sentences . Skin: Warm, dry, no pallor noted. There is no rash noted. Head: Normocephalic, atraumatic Eye: Normal conjunctiva, no drainage, EOMI. PERRL Ears, Nose, Mouth, and Throat: oral mucosa is moist. Nares patent. Mouth without vesicles. Ear canals patent. Tm's without Erythema Cardiovascular: Tachycardic Respiratory:, Mild labored distress, accessory muscle usage noted, bilateral lower field wheezing, no rales or crackles Back: non-tender, no CVA tenderness bilaterally to percussion. GI: Normal bowel sounds, no tenderness to palpation, no masses appreciated. No rebound, guarding, or rigidity noted. Musculoskeletal: Small 1 x 1 cm area opening to the right groin post biopsy, clear serous drainage is noted, no seroma or hematoma appreciated, the patient has no evidence of calf tenderness, no pitting edema, symmetrical pulses noted bilaterally Neurological: A&O x4, normal speech Psychiatric: Cooperative Constitutional Vital Signs, click to edit/add: Last Vital Signs Temp 99.1 F 02/07/25 20:51 Pulse 122 H 02/07/25 20:51 Resp 22 H 02/07/25 20:51 BP 140/80 02/07/25 20:52 Pulse Ox 96 02/07/25 20:52 O2 Del Method Nasal Cannula 02/07/25 20:52 O2 Flow Rate 2 02/07/25 20:52 Course Vital Signs Vital signs: Vital Signs Temperature 99 F 02/07/25 18:09 Pulse Rate 124 H 02/07/25 18:09 Respiratory Rate 24 H 02/07/25 18:09 Blood Pressure 174/90 H 02/07/25 18:09 Pulse Oximetry 95 02/07/25 18:09 Temperature 99.1 F 02/07/25 20:51 Pulse Rate 122 H 02/07/25 20:51 Respiratory Rate 22 H 02/07/25 20:51 Blood Pressure 140/80 02/07/25 20:52 Pulse Oximetry 96 02/07/25 20:52 Oxygen Delivery Method Nasal Cannula 02/07/25 20:52 Oxygen Delivery Flow Rate 2 02/07/25 20:52 Medical Decision Making MDM Narrative Medical decision making narrative: 44-year-old male with a history of Hodgkin's lymphoma presents with a chief complaint of fatigue, shortness of breath and chills. He states symptoms began when he woke this morning. Upon arrival to the emergency room patient was tachycardic, tachypneic and pulse ox was 89% on room air. Patient is not currently under any treatment for his Hodgkin's lymphoma he is a poor historian states he sees his oncologist in approximately 1 month. He cannot recall his name but says he does see him in [place]. Patient denies any chest pain. Denies wearing any oxygen at home. He was seen here in the emergency room on January 25 for a seroma to the right groin status post biopsy of his groin. He states he has not heard or know the details of that biopsy. Patient presents the emergency room chief complaint of shortness of breath and feeling weak. Upon arrival to the emergency room IV was established patient was hypoxic and tachycardic. 2 L of oxygen were placed on the patient patient's pulse ox went from 89 to 96%. Patient had blood cultures and CBC CMP drawn at this time. Blood work is back including troponin which were all within normal limits. Patient was given a breathing treatment here in the emergency room and due to a reading of a pleural effusion low-grade fever and tachypneic and hypoxic he was started on Rocephin and Zithromax. Patient does have a history of Hodgkin's lymphoma denies any recent treatments. Patient has not been recently hospitalized for pneumonia or shortness of breath. He denies any recent hospitalizations other than for the drainage of a seroma back in January 25 of this year. Patient is currently receiving fluids. Hospitalist Dr. Adamson provide concerning this patient's care. He is going to look into the patient's x-rays and CT scans for further evaluation and to see if patient should be admitted here or transferred to another tertiary facility for treatment of his lymphoma. Medical Records Medical records reviewed: Yes I reviewed the patient's medical records Lab Data Lab results reviewed: Yes I reviewed the patient's lab results Labs: Lab Results 02/07/25 02/07/25 Range/Units 18:25 18:42 WBC 7.4 (4.0-11.0) 10^3/uL RBC 4.60 L (4.70-6.10) 10^6/uL Hgb 14.2 (14.0-18.0) g/dL Hct 40.7 L (42.0-54.0) % MCV 88.5 (80.0-94.0) fL MCH 30.9 (25.9-34.0) pg MCHC 34.9 (29.9-35.2) g/dL RDW 12.8 (11.0-15.0) % Plt Count 178 (150-450) 10^3/uL MPV 9.3 L (9.5-13.5) fL Neut % (Auto) 77.2 H (43.0-75.0) % Lymph % (Auto) 9.6 L (20.5-60.0) % [place] % (Auto) 12.1 H (1.7-12.0) % Eos % (Auto) 0.5 L (0.9-7.0) % Baso % (Auto) 0.3 (0.2-2.0) % Neut # (Auto) 5.7 (1.4-6.5) 10^3/uL Lymph # (Auto) 0.7 L (1.2-3.8) 10^3/uL [place] # (Auto) 0.9 H (0.3-0.8) 10^3/uL Eos # (Auto) 0.0 (0.0-0.7) 10^3/uL Baso # (Auto) 0.0 (0.0-0.1) 10^3/uL Abs Immat Gran (auto) 0.02 (0.00-0.03) 10^3/uL Imm/Tot Granulo (auto) 0.3 (0.0-0.5) % Sodium 136 (136-145) mmol/L Potassium 3.6 (3.5-5.1) mmol/L Chloride 102 (98-107) mmol/L Carbon Dioxide 27.5 (21.0-32.0) mmol/L Anion Gap 10.1 BUN 14.0 (7.0-18.0) mg/dL Creatinine 1.26 (0.70-1.30) mg/dL Est GFR ( Amer) >60 (>=60 mL/min/1.73m^2) Est GFR (Non-Af Amer) >60 (>=60 mL/min/1.73m^2) BUN/Creatinine Ratio 11.1 Glucose 93 (74-106) mg/dL Calcium 8.2 L (8.5-10.1) mg/dL Total Bilirubin 0.3 (0.2-1.0) mg/dL AST 27 (15-37) U/L ALT 44 (16-63) U/L Alkaline Phosphatase 111 (46-116) U/L Troponin I High Sens 9.9 (4.0-76.1) pg/mL NT-Pro-B Natriuret Pep 60.0 (<=450.0) pg/mL Total Protein 7.3 (6.4-8.2) g/dL Albumin 4.1 (3.4-5.0) g/dL Globulin 3.2 g/dL Albumin/Globulin Ratio 1.3 Influenza Type A Ag Negative Influenza Type B Ag Negative Imaging Data Chest x-ray: Radiologist's impression: ITS Impressions Chest X-Ray 02/07/25 18:14 IMPRESSION: There is a small right-sided pleural effusion. No focal consolidation. Impression dictated by: Jelani Santana M.D. 02/07/2025 6:57 PM Dictation Location: [place] [address] Electronically authenticated by: [id number] Y Date: 02/07/2025 18:57 Chest CTA 02/07/25 19:45 IMPRESSION: No evidence of pulmonary embolism. There is a 1.5 cm mass along the major fissure on the right. There is a second 7 mm noncalcified nodule along the major fissure there is a 1 cm noncalcified pleural-based nodule in the left lower lobe posteriorly. This presumably represents an enlarged pulmonary lymph node and likely relates to patient's history of lymphoma. There is focal pleural thickening along the minor fissure anteriorly which may represent additional disease. Impression dictated by: Jelani Santana M.D. 02/07/2025 8:33 PM Dictation Location: [place] [address] Electronically authenticated by: [id number] Y Date: 02/07/2025 20:33 ECG Data Interpretation: 1829 sinus tachycardia with a rate of 120 bpm WI interval 146 ms QRS duration 102 ms, right bundle branch block,no comparison available Discharge Plan Discharge Chief Complaint: Shortness of Breath/Dyspnea Clinical Impression: Hypoxia, Respiratory distress Patient Disposition: Admitted as Observation Time of Disposition Decision: 21:33 Condition: Fair
--- NOTE | 2025-02-07 19:45 | CT_ITS ---
[address] [address] Patient Name: JOSELYN CARNES MRN: [id number] date: 1980 Sex: M Assigned Patient Location: ER Current Patient Location: ER Accession/Order Number: [id number] Exam Date: 02/07/2025 19:53 Report Date: 02/07/2025 20:33 At the request of: ENA STOREY Procedure: CT angio chest CT angio chest 02/07/2025 8:03 PM SIGN AND SYMPTOMS: ^h/o hodgkins lymphoma, hypoxia CONTRAST: 100 mL of intravenous Omnipaque 350 TECHNIQUE: Multidetector CT axial slices of the chest were obtained with IV contrast. Multiplanar reformats were performed and viewed on a separate workstation and reviewed to further define anatomy and possible pathology. CT was performed with one or more of the following dose reduction techniques: Automated exposure control, adjustment of the mA and/or kV according to patient size, or use of iterative reconstruction technique. COMPARISON: None. FINDINGS: Lower neck: Thyroid gland within normal limits, no supraclavicle adenopathy. Vessels: Within normal limits. There is no evidence of pulmonary embolism. There is narrowing of the left innominate vein which may be treatment related. Disc causes multiple venous collaterals along the chest wall. Mediastinum and [place]: Within normal limits. Heart: Normal size. There is a small pericardial effusion.. Airways: Within normal limits Lungs: There is a 1.5 cm mass along the major fissure on the right. There is a second 7 mm noncalcified nodule along the major fissure there is a 1 cm noncalcified pleural-based nodule in the left lower lobe posteriorly. This presumably represents an enlarged pulmonary lymph node. There is focal pleural thickening anteriorly along the right minor fissure which may represent additional disease. Pleura: Within normal limits. Chest Wall: Mildly prominent but not pathologically enlarged axillary lymph nodes are noted bilaterally. Upper Abdomen: Within normal limits. Bones: Their is a remote posttraumatic deformity of the sternum. Degenerative changes are noted in the thoracic spine. CT/CT angio chest IMPRESSION: No evidence of pulmonary embolism. There is a 1.5 cm mass along the major fissure on the right. There is a second 7 mm noncalcified nodule along the major fissure there is a 1 cm noncalcified pleural-based nodule in the left lower lobe posteriorly. This presumably represents an enlarged pulmonary lymph node and likely relates to patient's history of lymphoma. There is focal pleural thickening along the minor fissure anteriorly which may represent additional disease. Impression dictated by: Jelani Santana M.D. 02/07/2025 8:33 PM Dictation Location: [place] [address] Electronically authenticated by: [id number] Y Date: 02/07/2025 20:33
[2025-02-07] MEDS: AZITHROMYCIN 500 MG in 0.9 % SODIUM CHLORIDE 250 ML 250 MG IV (20:11)
[2025-02-07] MEDS: BACITRACIN 0.9 GM PACKET 1 PACKET TOPICAL (20:49)
[2025-02-07] MEDS: 0.9 % SODIUM CHLORIDE 1,000 ML 1000 ML IV (20:49)
[2025-02-07] MEDS: ACETAMINOPHEN 500 MG TABLET 1000 MG PO (20:57)
[2025-02-07] MEDS: METHYLPREDNISOLONE SOD SUCC PF 125 MG/2 ML VIAL IVP (21:40)
[2025-02-07 23:02] LABS: SARS-CoV-2 Ag NEGATIVE (NEGATIVE)
--- OUTSIDE RECORDS SUMMARY | 2025-02-07 23:13 | XMS_ITS | CCD ---
Author Organization [facility] Care Team Providers Care Bumper And Painter Name Role Phone RODRICK MARTINEZ Attending Unavailable CHIRRI, IQRA Consulting Unavailable CHIRRI, IQRA Admitting Unavailable CHIRRI, IQRA Attending Unavailable PARINJA, DEANNA Admitting Unavailable PARINJA, DEANNA Attending Unavailable CASSIE MOREIRA Consulting Unavailable PROVIDER, NONE Primary Care Unavailable ESTEBAN REYES Attending Unavailable PROVIDER, NONE Primary Care Unavailable SONJA CAGLE C Consulting Unavailable Dilcia Ramirez Primary Care Provider Nirav DIEGO, PhD, Ruy Marlow Unavailable [phone] Lupis Bass (Eitan) Unavailable Hannah Henson MD Unavailable Hannah Henson MD Unavailable [phone] Nirav DIEGO, PhD, Ruy T Unavailable Lupis Bass (Eitan) Unavailable Hannah Henson MD Unavailable Simran Nelson APRN.CNP Unavailable Bandar FLORES, Marialuisa Moreno Unavailable Unavail able SHANTHI LU Referring Unavailable SHANTHI LU Primary Care Unavailable AMINAH, REHAB Referring Unavailable SHANTHI LU Primary Care Unavailable AMINAH, REHAB Admitting Unavailable AMINAH, REHAB Attending Unavailable SHANTHI LU Primary Care Unavailable SHANTHI LU Primary Care Unavailable Aly HANDS ASSEMBLER-Shanthi PULLIAM Primary Care Provid er Aly HANDS ASSEMBLER-Shanthi PULLIAM Primary Care Provid er TOBI PLATA Attending Unavailable TOBI PLATA Referring Unavailable SIMRAN NELSON Attending Unavailterri e SIMRAN NELSON Referring Unavailabl RICH Sanchez Referring Unavailable RICH HILL Attending Unavailable Lu HANDS ASSEMBLER-[facility], Shanthi J Primary Care Provid er No Pcp, No Pcp Primary Care Provider Unavailterri e Rolfotjosé miguel HANDS ASSEMBLER-[facility], Miah Nielsen Primary Care Provider VALDEMAR [...] Primary Care Unavailable FORTUNATO BALDERRAMA Attending Unavailable OILVA CORNELL Referring Unavailable LU, SHANTHI J Primary [...] source) Amoxicillin Drug Allergy 07-12-19 19 Swelling [facility] Work Phone: Sulfamethoxazole / Trimethoprim (1 source) Sulfamethoxazole / Trimethoprim Drug Allergy 05-12-20 16 [facility] Work Phone: (20 sources) Amoxicillin; Translations: [AMOXICILLIN] Drug Allergy 07-11-19 19 Swelling, Hives, Itching [facility] Work Phone: (20 sources) Sulfamethoxazole / Trimethoprim; Translations: [SULFAMETHOXAZOLE-T RIMETHOPRIM] Drug Allergy 05-12-20 16 [facility] Work Phone: (20 sources) [...] 8 gram, Refill(s): 0, 0, Maintenance, TYRA, Sudanese, Print Requisition 07/17/2024 Active ARIPiprazole 10 mg [...] aftercare (20 sources) Drug therapy finding; 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 Normal [facility] CNPNon 09-14-2024 CNPN Telephone ([facility]) JOSELYN CARNES ([id number]) 1980 M Date Time Provider Department 09/14/24 RICH HILL During your visit today, we recorded the following information about you: Cassie Bledsoe 09/14/2024 2:24 PM Signed Records faxed to [facility] in [place]. [phone]. Allergies As of Date: 09/14/2024 Noted Allergy [...] Dr. Ceballos in the cancer center at [facility] discontinued all of his medication RKrishna RMA [...] Encounter Status:Closed by CASSIE BLEDSOE on 09/14/24 [facility] Panel Informationon 08-12 [facility] CNPZulema 02-16-2024 CNPN Telephone ([facility]) DEYVIJOSELYN Mitchell ([id number]) 1980 M Date Time Provider Department 02/16/24 [...] (HCC) [C81.08] Order(s):LACTATE DEHYDROGENASE [SQLD6] Order #: [id number] FUTURE COMPLETE BLOOD COUNT AND DIFFERENTIAL [SQCBCDIF] Order #: [id number] FUTURE COMPREHENSIVE METABOLIC PANEL [SQCMP] Order #: [id number] FUTURE Prescriptions as of 02/18/2024 - gabapentin [...] Dr. Ceballos in the cancer center at [facility] discontinued all of his medication Duglas A [...] Status:Closed by JOVITA RAYGOZA on 02/18/24 Normal [facility] Flow cytometry specialist re view Angel (Unsp spec) [Interp]on 02-02-2024 FLOW CYTOMETRY TISSUE/FLUID, NON CSF/NON BAL SEE SEPARATE REPORT, REVIEWED BY PATHOLOGIST Normal [facility] Comment on above: Performed By: #### 6 [id number] #### [facility] ([id number]) [address] [place] [address] [address] [place] [address] Surgical Pathologyon 024 Surgical Pathology Normal [facility] Comment on above: Result Comment: [facility] [address] [place] [address] Surgical Pathology Consultation Patient Name:JOSELYN CARNES:1980 (Age: 43)Gender:MTaken:4Reported:4Physician(s):Nitin Burr MD ([phone])Copy To: Rec. #:[id number]: #[id number] Final Pathologic Diagnosis 1. Right tonsil, tonsillectomy: [...] CD5, CD7, CD10, CD19, CD20, CD23, CD45, [place], and Lambda. Immunophenotyping Comment: Immunophenotyping has been used in this diagnostic evaluation. This test was developed and its performance characteristics determined by the [facility] Department. It has not been [...] Out Anshu Dickerson MD Interpretation [place] [address], License number: [id number]. 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 Gross Description 1. Received fresh labeled CARNES, right tonsil is a pink-reis intact tonsil, 1.8 x 1.0 x 0.6 cm. The lymph node is sectioned to reveal pink-reis, smooth cut surfaces. A technical services representative portion is submitted in RPMI media for flow cytometric studies, two H&E touch preps and two Giemsa touch preps are prepared. The remainder of the tissue is submitted in cassettes A-B (cassette B is submitted following B+ fixation). (2,ns,[id number], m1) GK 2. Received fresh labeled DEYVI, left tonsil is a pink-reis portion of tonsillar tissue, 1.2 x 0.5 x 0.2 cm. The lymph node is sectioned to reveal pink-reis, smooth cut surfaces. A technical services representative portion is submitted in RPMI media for flow cytometric studies, two H&E touch preps and two Giemsa touch preps are prepared. The remainder of the tissue is submitted in cassettes A-B (cassette B is submitted following B+ fixation). (2,ns,[id number], m1) GK 3. Received fresh labeled DEYVI, adenoid is a reis soft tissue bit, 0.4 cm. A technical services representative portion is submitted in RPMI media for flow cytometric studies, two H&E touch preps and two Giemsa touch preps are prepared. The remainder of the tissue is submitted in cassette A. (1,ns,[id number], m1) GK Please note that the three samples are combined into a single RPMI media for flow cytometric studies. /02/02/2024[facility]AK Specimen(s) Received 1: Right tonsil 2: Left tonsil 3: Adenoids Fee Codes(s): 1; 69205, 54564 2; 56997, 93592 3; 82020, 72919, 86820 [facility] 02-01-2024 [facility] 01-25-2024 [facility] Telephone ([facility]) JOSELYN CARNES ([id number]) 1980 M Date Time Provider Department 01/25/24 MARIALUISA PORTILLO [facility] During your visit today, we recorded the following information about you: Marialuisa Portillo RN 01/28/2024 2:34 PM Addendum Prior Authorization Documentation Approved Prior authorization requested for: MEDICATION Butran 5 mcg TD patch Submitted via phone call to [facility] PA department. Spoke Annemarie in PA department. 01/27-Spoke with Bonnie at [facility]. Medication approved and she will call the pharmacy to update them Insurance Company Name: [employer]. Pharmacy Name: [facility] and Authorization approval CA # [id number] Dates of Approval: from 01/25/2024 to 04/23/2025 [...] Dr. Ceballos in the cancer center at [facility] discontinued all of his medication Duglas RMA [...] Encounter Status:Closed by MARIALUISA PORTILLO on 01/25/24 [facility] CNOVon 01-22-2024 CNOV Office Visit ([facility] ) JOSELYN CARNES ([id number]) 1980 M Date Time Provider Department 01/22/24 3:00 PM SIM[facility]AN NELSON [facility] During your visit today, we recorded the following information about you: Temperature Pulse Respiration Blood pressure 97.1 degrees 99/minute 16/minute 131/91 Weight Height 102.2 kg 1.854 m Simran Nelson, HANDS ASSEMBLER.RN PERIOPERATIVE 01/25/2024 1:01 PM Addendum PALLIATIVE MEDICINE PROGRESS [...] appetite and weight are stable Modified ESAS ([place] Symptom Assessment Scale) Information Provided By: Patient [...] was identified. 01/22/2024 by Simran Nelson NP, HANDS ASSEMBLER.RN PERIOPERATIVE Assessment AND Plan (Z51.5) (more content not included)... Normal [facility] CNPNon 01-22-2024 CNPN Telephone ([facility]) JOSELYN CARNES ([id number]) 1980 M Date Time Provider Department 01/22/24 TEETEE COOK [facility] During your visit today, we recorded the following information about you: Teetee Cook [facility] 01/26/2024 9:49 AM Signed Ambulatory Pharmacy Prior Authorization Note Provider Intervention Required?: No- Pharmacy completed on your behalf. Rx Plan: [facility]: Buprenorphine patches Cover My Meds Ly: [id number] Determination: Denied PA Denied because: Step therapy requirement Prior Authorization/Case #: [id number] Prior Authorization Expiration: na Time to PA Submission in CMM: 15 min Time to PA Determination in CMM: 1 day Additional Information: must try Tramadol ER For questions relating to this submission, please contact [facility] at [phone] Martina Stephenson, [facility] 01/25/2024 11:32 AM Signed Insurance DENIED butrans patches - he must have a failure, contraindication or intolerance to Tramadol ER. Allie - please advise if you will be completing an appeal. Thank you, Martina Stephenson, [facility] Simran Nelson APRN.[facility] 01/25/2024 12:59 PM Signed Yes we [...] Fully Assessed Reason for Visit: Medication Authorization [1859] Cmt: Buprenorphine patches Prescriptions as of 01/26/2024 [...] Dr. Ceballos in the cancer center at [facility] discontinued all of his medication Duglas A [...] Status:Closed by TEETEE COOK on 01/26/24 Normal [facility] PAIN PANEL, UR QUANTon 01-21 9-Ktglhicmoq-2,5-Dimethy l-3,3-Diphenylpyrrolidin e (EDDP) Confirm (U) [Mass/Vol] <6 Normal <6 [facility] Comment on above: Order Comment: Speci men Type: URINE SPECIMENOrdering Facility: [facility] Address: [address] [place] [address] Result Comment: EDDP is a metabolite of methadone. Performed By: #### L [id number] ####[facility] [id number] [place] [address] [place] 6-Monoacetylmorphine (6-KEYLA) (U) [Mass/Vol] <5 Normal <5 [facility] Comment on above: Order Comment: Speci men Type: URINE SPECIMENOrdering Facility: [facility] Address: [address] [place] [address] Result Comment: 6-MA M (6-monoacetylmorphine, also known as 6-acetylmorphine) is a unique metabolite of heroin. Presence of 6-KEYLA indicates use of heroin. 6-KEYLA is further metabolized to morphine and absence of 6-KEYLA does not rule out the use of heroin. Performed By: #### L [id number] ####[facility] [id number] [place] [address] [place] Amphetamine Confirm (U) [Mass/Vol] <5 Normal <5 [facility] Comment on above: Order Comment: Speci men Type: URINE SPECIMENOrdering Facility: [facility] Address: [address] [place] [address] Performed By: #### L [id number] ####[facility] [id number] [place] [address] [place] Benzoylecgonine Confirm (U) [Mass/Vol] <24 Normal <24 [facility] Comment on above: Order Comment: Speci men Type: URINE SPECIMENOrdering Facility: [facility] Address: [address] [place] [address] Result Comment: Stas oylecgonine is a metabolite of cocaine. Performed By: #### L [id number] ####[facility] [id number] [place] [address] [place] Buprenorphine (U) [Mass/Vol] <20 Normal <20 [facility] Comment on above: Order Comment: Speci men Type: URINE SPECIMENOrdering Facility: [facility] Address: [address] [place] [address] Performed By: #### L [id number] ####[facility] [id number] [place] [address] [place] Cannabinoids Confirm (U) [Mass/Vol] <16 Normal <16 [facility] Comment on above: Order Comment: Speci men Type: URINE SPECIMENOrdering Facility: [facility] Address: [address] [place] [address] Result Comment: Tetr ahydrocannabinol carboxylic acid (THCA) is a metabolite of mmgrm-9-ksyikrmfynlspcilxbdm which is the main active component of marijuana. Performed By: #### L [id number] ####[facility] [id number] [place] [address] [place] Codeine Confirm (U) [Mass/Vol] <11 Normal <11 [facility] Comment on above: Order Comment: Speci men Type: URINE SPECIMENOrdering Facility: [facility] Address: [address] [place] [address] Performed By: #### L [id number] ####[facility] [id number] [place] Dihydrocodeine Confirm (U) [Mass/Vol] <5 Normal <5 [facility] Comment on above: Order Comment: Speci men Type: URINE SPECIMENOrdering Facility: [facility] Address: [address] [place] [address] Performed By: #### L [id number] ####[facility] [id number] [place] [address] [place] fentaNYL Confirm (U) [Mass/Vol] <6 Normal <6 [facility] Comment on above: Order Comment: Speci men Type: URINE SPECIMENOrdering Facility: [facility] Address: [address] [place] [address] Performed By: #### L [id number] ####[facility] [id number] [address] [place] HYDROcodone Confirm (U) [Mass/Vol] <8 Normal <8 [facility] Comment on above: Order Comment: Speci men Type: URINE SPECIMENOrdering Facility: [facility] Address: [address] [place] [address] Result Comment: Hydr ocodone is a metabolite of dihydrocodeine. Performed By: #### L [id number] ####[facility] [id number] [place] [address] [place] HYDROmorphone Confirm (U) [Mass/Vol] <5 Normal <5 [facility] Comment on above: Order Comment: Speci men Type: URINE SPECIMENOrdering Facility: [facility] Address: [address] [place] [address] Result Comment: Hydr omorphone is a metabolite of hydrocodone. Performed By: #### L [id number] ####[facility] [id number] [place] [address] [place] Methadone Confirm (U) [Mass/Vol] <16 Normal <16 [facility] Comment on above: Order Comment: Speci men Type: URINE SPECIMENOrdering Facility: [facility] Address: [address] [place] [address] Performed By: #### L [id number] ####[facility] [id number] [place] [address] [place] Methamphetamine Confirm (U) [Mass/Vol] <8 Normal <8 [facility] Comment on above: Order Comment: Speci men Type: URINE SPECIMENOrdering Facility: [facility] Address: [address] [place] [address] Performed By: #### L [id number] ####[facility] [id number] [place] [address] [place] Morphine Confirm (U) [Mass/Vol] <10 Normal <10 [facility] Comment on above: Order Comment: Speci men Type: URINE SPECIMENOrdering Facility: [facility] Address: [address] [place] [address] Result Comment: Morp suzette is a metabolite of codeine and heroin. Performed By: #### L [id number] ####[facility] [id number] [address] [place] Norbuprenorphine (U) [Mass/Vol] <20 Normal <20 [facility] Comment on above: Order Comment: Speci men Type: URINE SPECIMENOrdering Facility: [facility] Address: [address] [place] [address] Result Comment: Norb uprenorphine is the primary active metabolite of buprenorphine. Performed By: #### L [id number] ####[facility] [id number] [address] [place] Norfentanyl Confirm (U) [Mass/Vol] <6 Normal <6 [facility] Comment on above: Order Comment: Speci men Type: URINE SPECIMENOrdering Facility: [facility] Address: [address] [place] [address] Result Comment: Norf entanyl is a metabolite of fentanyl. Performed By: #### L [id number] ####[facility] [id number] [place] [address] [place] Nortramadol (U) [Mass/Vol] <20 Normal <20 [facility] Comment on above: Order Comment: Speci men Type: URINE SPECIMENOrdering Facility: [facility] Address: [address] [place] [address] Result Comment: Desm ethyltramadol is a metabolite of tramadol. Performed By: #### L [id number] ####[facility] [id number] [place] [address] [place] NOTE,UR PAIN LOMAX Normal [facility] Comment on above: Order Comment: Speci men Type: URINE SPECIMENOrdering Facility: [facility] Address: [address] [place] [address] Result Comment: This test is for medical use only. This test was developed and its performance characteristics determined by [facility]'s [facility] (-[facility]). It has not been cleared or approved by the FDA. -[facility] is regulated under CLIA as qualified to perform high-complexity testing. This test is used for clinical purposes. It should not be regarded as investigational or for research. Performed By: #### L [id number] ####[facility] [id number] [place] [address] [place] oxyCODONE Confirm (U) [Mass/Vol] <10 Normal <10 [facility] Comment on above: Order Comment: Speci men Type: URINE SPECIMENOrdering Facility: [facility] Address: [address] [place] [address] Performed By: #### L [id number] ####[facility] [id number] [place] [address] [place] oxyMORphone Confirm (U) [Mass/Vol] <5 Normal <5 [facility] Comment on above: Order Comment: Speci men Type: URINE SPECIMENOrdering Facility: [facility] Address: [address] [place] [address] Result Comment: Oxym orphone is a metabolite of oxycodone. Performed By: #### L [id number] ####[facility] [id number] [place] [address] [place] traMADol Confirm (U) [Mass/Vol] <25 Normal <25 [facility] Comment on above: Order Comment: Speci men Type: URINE SPECIMENOrdering Facility: [facility] Address: [address] [place] [address] Performed By: #### L [id number] ####[facility] [id number] [place] [address] [place] SPECIMEN VALIDITY, URINEon 0 01-22-2024 CHROMATE,URINE <10 Normal <50 [facility] Comment on above: Order Comment: Speci men Type: URINE SPECIMENOrdering Facility: [facility] Address: [address] [place] [address] Performed By: #### L [id number] ####[facility] [id number] [place] [address] [place] CREATININE,URINE 54.0 mg/dL Normal 20.0-300.0 [facility] Comment on above: Order Comment: Speci men Type: URINE SPECIMENOrdering Facility: [facility] Address: [address] [place] [address] Performed By: #### L [id number] ####[facility] [id number] [place] [address] [place] NITRITES,URINE <50 Normal <500 [facility] Comment on above: Order Comment: Speci men Type: URINE SPECIMENOrdering Facility: [facility] Address: [address] [place] [address] Performed By: #### L [id number] ####[facility] [id number] [place] [address] [place] OXIDANTS,URINE <38 Normal <200 [facility] Comment on above: Order Comment: Speci men Type: URINE SPECIMENOrdering Facility: [facility] Address: [address] [place] [address] Performed By: #### L [id number] ####[facility] [id number] [place] [address] [place] pH (U) 5.8 [pH] Normal 4.5-8.0 [facility] Comment on above: Order Comment: Speci men Type: URINE SPECIMENOrdering Facility: [facility] Address: [address] [place] [address] Performed By: #### L [id number] ####[facility] [id number] [place] [address] [place] SPEC GRAVITY,UR 1.009 Normal 1.003-1.03 5 [facility] Comment on above: Order Comment: Speci men Type: URINE SPECIMENOrdering Facility: [facility] Address: [address] [place] [address] Performed By: #### L [id number] ####[facility] [id number] [place] [address] [place] SPECIMEN VALIDITY QUALITY Specimen quality results within acceptable limits Normal [facility] Comment on above: Order Comment: Speci men Type: URINE SPECIMENOrdering Facility: [facility] Address: [address] [place] [address] Performed By: #### L [id number] ####[facility] [id number] [place] [address] [place] TOXICOLOGY SCREEN, ROUTINE U RINEon 01-22-2024 Amphetamines Confirm (U) [Mass/Vol] Negative Normal Negative [facility] Comment on above: Order Comment: Speci men Type: URINE SPECIMENOrdering Facility: [facility] Address: [address] [place] [address] Result Comment: Cuto ff threshold at 1000 ng/mL. Performed By: #### U TOX2 ####[facility] [id number] [place] [address] [place] BARBITURATES, URINE Negative Normal Negative [facility] Comment on above: Order Comment: Speci men Type: URINE SPECIMENOrdering Facility: [facility] Address: [address] [place] [address] Result Comment: Cuto ff threshold at 200 ng/mL. Performed By: #### U TOX2 ####[facility] [id number] [place] [address] [place] BENZODIAZEPINES, UR Negative Normal Negative [facility] Comment on above: Order Comment: Speci men Type: URINE SPECIMENOrdering Facility: [facility] Address: [address] [place] [address] Result Comment: Cuto ff threshold at 200 ng/mL. Performed By: #### U TOX2 ####[facility] [id number] [place] [address] [place] Cannabinoids Screen Ql (U) Negative Normal Negative [facility] Comment on above: Order Comment: Speci men Type: URINE SPECIMENOrdering Facility: [facility] Address: [address] [place] [address] Result Comment: Cuto ff threshold at 50 ng/mL. Performed By: #### U TOX2 ####[facility] [id number] [place] [address] [place] Cocaine Ql (U) Negative Normal Negative [facility] Comment on above: Order Comment: Speci men Type: URINE SPECIMENOrdering Facility: [facility] Address: [address] [place] [address] Result Comment: Cuto ff threshold at 300 ng/mL. Performed By: #### U TOX2 ####[facility] [id number] [place] [place] [address] [place] Ethanol (U) [Mass/Vol] <11 Normal <11 [facility] Comment on above: Order Comment: Speci men Type: URINE SPECIMENOrdering Facility: [facility] Address: [address] [place] [address] Performed By: #### U TOX2 ####[facility] LABCLIA [id number] [place] [address] [place] Opiates Screen Ql (U) Negative Normal Negative [facility] Comment on above: Order Comment: Speci men Type: URINE SPECIMENOrdering Facility: [facility] Address: [address] [place] [address] Result Comment: Cuto ff threshold at 300 ng/mL. Performed By: #### U TOX2 ####[facility] LABIA [id number] [place] [address] [place] oxyCODONE cutoff Screen (U) [Mass/Vol] Negative Normal Negative [facility] Comment on above: Order Comment: Speci men Type: URINE SPECIMENOrdering Facility: [facility] Address: [address] [place] [address] Result Comment: Cuto ff threshold at 100 ng/mL. Performed By: #### U TOX2 ####[facility] LABCLIA [id number] [place] [address] [place] Phencyclidine Ql (U) Negative Normal Negative [facility] Comment on above: Order Comment: Speci men Type: URINE SPECIMENOrdering Facility: [facility] Address: [address] [place] [address] Result Comment: Cuto ff threshold at 25 ng/mL. Performed By: #### U TOX2 ####[facility] LABCLIA [id number] [place] [address] [place] PT Skull base to mid-thighOr dered By: Clarisse Nixon on 01-18-2024 [facility] Radiology Study observation (narrative) [facility] PET+CT Guidance for localiza tion of tumor [...] any questions regarding this interpretation, please call [phone]. If you are unable to reach us at the number above, please feel free to contact [facility] at [phone]. DIVISION OF RADIOLOGY * * *Final Report* [...] * Radiopharmaceutical Activity: 14.4 mCi * Radiopharmaceutical: P77-Phhagobxtriyishzw e (FDG) * All reported standardized uptake values represent maximum SUV (SUVmax) per body weight, unless otherwise specified. COMPARISON: FDG PET/CT 08/12/2023 CORRELATION: No relevant imaging available RESULT: REFERENCES: SUV reference values: * Blood pool (descending aorta) activity: SUVmax 2.2 * Background liver activity: SUVmax 2.7 [employer] (topogram) images: No additional findings. Notes and [...] No abnormal uptake. DIVISION OF RADIOLOGY Provider, [facility] - 01/12/2024 * * *Final Report* [...] * Radiopharmaceutical Activity: 14.4 mCi * Radiopharmaceutical: L50-Sgpbbvbjuxvrupmbo e (FDG) * All reported standardized uptake values represent maximum SUV (SUVmax) per body weight, unless otherwise specified. COMPARISON: FDG PET/CT 08/12/2023 CORRELATION: No relevant imaging available RESULT: REFERENCES: SUV reference values: * Blood pool (descending aorta) activity: SUVmax 2.2 * Background liver activity: SUVmax 2.7 [employer] (topogram) images: No additional findings. Notes and [...] be related t (more content not included)... [facility] PET+CT Guidance for localiza tion of tumor of Skull base to mid-thigh-- W 18F-FDG IVOrdered By: Ccf Provider on 01-12-2024 [facility] CBC W Auto Differential pane l (Bld)on 01-04-2024 Basophils (Bld) [#/Vol] 0.03 10*3/uL [facility] Basophils/100 WBC (Bld) 0.5 % C [facility] Differential cell count method Nom (Bld) Auto [facility] Eosinophils (Bld) [#/Vol] 0.21 10*3/uL [facility] Eosinophils/100 WBC (Bld) 3.2 % [facility] Erythrocyte distribution width (RBC) [Ratio] 12.8 % 11.5 - 15.0 % [facility] Hematocrit (Bld) [Volume fraction] 44.2 % 39.0 - 51.0 % [facility] Hemoglobin (d) [Mass/Vol] 14.8 g/dL 13.0 - 17.0 g/dL [facility] Immature granulocytes (Bld) [#/Vol] [facility] Immature granulocytes/100 WBC (Bld) 0.2 % [facility] Lymphocytes (Bld) [#/Vol] 2.23 10*3/uL [facility] Lymphocytes/100 WBC (Bld) 33.9 % [facility] MCH (RBC) [Entitic mass] 30.3 pg 26. 0 - 34.0 pg [facility] MCHC (RBC) [Mass/Vol] 33.5 g/dL 30.5 - 36.0 g/dL [facility] MCV (RBC) [Entitic vol] 90.4 fL 80.0 - 100.0 fL [facility] Monocytes (Bld) [#/Vol] 0.68 10*3/uL [facility] Monocytes/100 WBC (Bld) 10.4 % C [facility] Neutrophils (Bld) [#/Vol] 3.41 10*3/uL [facility] Neutrophils/100 WBC (Bld) 51.8 % [facility] Nucleated RBC (Bld) [#/Vol] [facility] Nucleated RBC/100 WBC (Bld) [Ratio] 0.0 % /100 WBC [facility] Platelet mean volume (Bld) [Entitic vol] 9.3 fL 9.0 - 12.7 fL [facility] Platelets (Bld) [#/Vol] 188 10*3/uL [facility] RBC (Bld) [#/Vol] 4.89 10*6/uL 4.20 - 6.00 m/uL [facility] WBC (Bld) [#/Vol] 6.57 10*3/uL [facility] Basophils (Bld) [#/Vol] 0.03 10*3/uL Normal <0.11 [facility] Comment on above: Order Comment: Speci men Type: BLOOD SPECIMENOrdering Facility: [facility] Address: [address] [place] [address] Performed By: #### 5 7021-8 ####[facility] LABCLIA [id number] [place] [address] Basophils/100 WBC (Bld) 0.5 % Normal C [facility] Comment on above: Order Comment: Speci men Type: BLOOD SPECIMENOrdering Facility: [facility] Address: [address] [place] [address] Performed By: #### 5 7021-8 ####[facility] LABCLIA [id number] [place] [address] Differential cell count method Nom (Bld) Auto Normal [facility] Comment on above: Order Comment: Speci men Type: BLOOD SPECIMENOrdering Facility: [facility] Address: [address] [place] [address] Performed By: #### 5 7021-8 ####[facility] LABCLIA [id number] [place] [address] Eosinophils (Bld) [#/Vol] 0.21 10*3/uL Normal <0.46 [facility] Comment on above: Order Comment: Speci men Type: BLOOD SPECIMENOrdering Facility: [facility] Address: [address] [place] [address] Performed By: #### 5 7021-8 ####[facility] LABCLIA [id number] [place] [address] Eosinophils/100 WBC (Bld) 3.2 % Normal [facility] Comment on above: Order Comment: Speci men Type: BLOOD SPECIMENOrdering Facility: [facility] Address: [address] [place] [address] Performed By: #### 5 7021-8 ####[facility] LABCLIA [id number] [place] [address] Erythrocyte distribution width (RBC) [Ratio] 12.8 % Normal 11.5-15.0 [facility] Comment on above: Order Comment: Speci men Type: BLOOD SPECIMENOrdering Facility: [facility] Address: [address] [place] [address] Performed By: #### 5 7021-8 ####[facility] LABCLIA [id number] [place] [address] Hematocrit (Bld) [Volume fraction] 44.2 % Normal 39.0-51.0 [facility] Comment on above: Order Comment: Speci men Type: BLOOD SPECIMENOrdering Facility: [facility] Address: [address] [place] [address] Performed By: #### 5 7021-8 ####[facility] LABCLIA [id number] [place] [address] Hemoglobin (Bld) [Mass/Vol] 14.8 g/dL Normal 13.0-17.0 [facility] Comment on above: Order Comment: Speci men Type: BLOOD SPECIMENOrdering Facility: [facility] Address: [address] [place] [address] Performed By: #### 5 7021-8 ####[facility] LABCLIA [id number] [place] [address] Immature granulocytes (Bld) [#/Vol] 10*3/uL Normal <0.10 [facility] Comment on above: Order Comment: Speci men Type: BLOOD SPECIMENOrdering Facility: [facility] Address: [address] [place] [address] Performed By: #### 5 7021-8 ####[facility] LABCLIA [id number] [place] [address] Immature granulocytes/100 WBC (Bld) 0.2 % Normal [facility] Comment on above: Order Comment: Speci men Type: BLOOD SPECIMENOrdering Facility: [facility] Address: [address] [place] [address] Performed By: #### 5 7021-8 ####[facility] LABCLIA [id number] [place] [address] Lymphocytes (Bld) [#/Vol] 2.23 10*3/uL Normal 1.00-4.00 [facility] Comment on above: Order Comment: Speci men Type: BLOOD SPECIMENOrdering Facility: [facility] Address: [address] [place] [address] Performed By: #### 5 7021-8 ####[facility] LABCLIA [id number] [place] [address] Lymphocytes/100 WBC (Bld) 33.9 % Normal [facility] Comment on above: Order Comment: Speci men Type: BLOOD SPECIMENOrdering Facility: [facility] Address: [address] [place] [address] Performed By: #### 5 7021-8 ####[facility] LABCLIA [id number] [place] [address] MCH (RBC) [Entitic mass] 30.3 pg Normal 26.0-34.0 [facility] Comment on above: Order Comment: Speci men Type: BLOOD SPECIMENOrdering Facility: [facility] Address: [address] [place] [address] Performed By: #### 5 7021-8 ####[facility] LABIA [id number] [place] [address] MCHC (RBC) [Mass/Vol] 33.5 g/dL Normal 30.5-36.0 [facility] Comment on above: Order Comment: Speci men Type: BLOOD SPECIMENOrdering Facility: [facility] Address: [address] [place] [address] Performed By: #### 5 7021-8 ####[facility] LABCLIA [id number] [place] [address] MCV (RBC) [Entitic vol] 90.4 fL Normal 80.0-100.[address] [facility] Comment on above: Order Comment: Speci men Type: BLOOD SPECIMENOrdering Facility: [facility] Address: [address] [place] [address] Performed By: #### 5 7021-8 ####[facility] LABCLIA [id number] [place] [address] Monocytes (Bld) [#/Vol] 0.68 10*3/uL Normal <0.87 [facility] Comment on above: Order Comment: Speci men Type: BLOOD SPECIMENOrdering Facility: [facility] Address: [address] [place] [address] Performed By: #### 5 7021-8 ####[facility] LABCLIA [id number] [place] [address] Monocytes/100 WBC (Bld) 10.4 % Normal [facility] Comment on above: Order Comment: Speci men Type: BLOOD SPECIMENOrdering Facility: [facility] Address: [address] [place] [address] Performed By: #### 5 7021-8 ####[facility] LABCLIA [id number] [place] [address] Neutrophils (Bld) [#/Vol] 3.41 10*3/uL Normal 1.45-7.50 [facility] Comment on above: Order Comment: Speci men Type: BLOOD SPECIMENOrdering Facility: [facility] Address: [address] [place] [address] Performed By: #### 5 7021-8 ####[facility] LABCLIA [id number] [place] [address] Neutrophils/100 WBC (Bld) 51.8 % Normal [facility] Comment on above: Order Comment: Speci men Type: BLOOD SPECIMENOrdering Facility: [facility] Address: [address] [place] [address] Performed By: #### 5 7021-8 ####[facility] LABCLIA [id number] [place] [address] Nucleated RBC (Bld) [#/Vol] 10*3/uL Normal <0.01 [facility] Comment on above: Order Comment: Speci men Type: BLOOD SPECIMENOrdering Facility: [facility] Address: [address] [place] [address] Performed By: #### 5 7021-8 ####[facility] LABCLIA [id number] [place] [address] Nucleated RBC/100 WBC (Bld) [Ratio] 0.0 /100 WBC Normal [facility] Comment on above: Order Comment: Speci men Type: BLOOD SPECIMENOrdering Facility: [facility] Address: [address] [place] [address] Performed By: #### 5 7021-8 ####[facility] LABCLIA [id number] [place] [address] Platelet mean volume (Bld) [Entitic vol] 9.3 fL Normal 9.0-12.7 [facility] Comment on above: Order Comment: Speci men Type: BLOOD SPECIMENOrdering Facility: [facility] Address: [address] [place] [address] Performed By: #### 5 7021-8 ####[facility] LABIA [id number] [place] [address] Platelets (Bld) [#/Vol] 188 10*3/uL Normal 150-400 [facility] Comment on above: Order Comment: Speci men Type: BLOOD SPECIMENOrdering Facility: [facility] Address: [address] [place] [address] Performed By: #### 5 7021-8 ####[facility] LABIA [id number] [place] [address] RBC (Bld) [#/Vol] 4.89 10*6/uL Normal 4.20-6.00 [facility] Comment on above: Order Comment: Speci men Type: BLOOD SPECIMENOrdering Facility: [facility] Address: [address] [place] [address] Performed By: #### 5 7021-8 ####[facility] LABIA [id number] [place] [address] WBC (Bld) [#/Vol] 6.57 10*3/uL Normal 3.70-11.00 [facility] Comment on above: Order Comment: Speci men Type: BLOOD SPECIMENOrdering Facility: [facility] Address: [address] [place] [address] Performed By: #### 5 7021-8 ####[facility] LABCLIA [id number] [place] [address] Comprehensive metabolic 2000 panelon 01-04-2024 Albumin [Mass/Vol] 4.8 g/dL 3.9 - 4.9 g/dL [facility] ALP [Catalytic activity/Vol] 103 U/L 38 - 113 U/L [facility] ALT [Catalytic activity/Vol] 53 U/L 10 - 54 U/L [facility] Anion gap [Moles/Vol] 10 mmol/L 8 - 15 mmol/L [facility] AST [Catalytic activity/Vol] 24 U/L 14 - 40 U/L [facility] Bilirubin [Mass/Vol] 0.3 mg/dL 0.2 - 1 .3 mg/dL [facility] Calcium [Mass/Vol] 10.0 mg/dL 8.5 - 10. 2 mg/dL [facility] Chloride [Moles/Vol] 103 mmol/L 98 - 10 7 mmol/L [facility] CO2 [Moles/Vol] 28 mmol/L 22 - 30 mmol/L [facility] Creatinine [Mass/Vol] 1.23 mg/dL High 0.73 - 1.22 mg/dL [facility] GFR/1.73 sq M.predicted among non-blacks MDRD (S/P/Bld) [Vol rate/Area] 74 mL/min/{1.73_m2} - PINF [facility] Comment on above: Estimated Glomerular Filtration [...] [Mass/Vol] 92 mg/dL 74 - 99 mg/dL [facility] Comment on above: The [place] Diabete s Association (ADA) provides guidance for [...] Standards of Medical Care in Diabetes 2016, [place] Diabetes Association. Diabetes Care. 2016.39(Suppl 1). Interpretation and review of laboratory results Abnormal [facility] Potassium [Moles/Vol] 4.4 mmol/L 3.7 - 5.1 mmol/L [facility] Protein [Mass/Vol] 7.2 g/dL 6.3 - 8.0 g/dL [facility] Sodium [Moles/Vol] 141 mmol/L 136 - 144 mmol/L [facility] Urea nitrogen [Mass/Vol] 18 mg/dL 9 - 24 mg/dL [facility] Albumin [Mass/Vol] 4.8 g/dL Normal 3.9-4.9 [facility] Comment on above: Order Comment: Speci men Type: BLOOD SPECIMENOrdering Facility: [facility] Address: [address] [place] [address] Performed By: #### 2 4323-8, 0 ####[facility] LABCLIA [id number] [place] [address] ALP [Catalytic activity/Vol] 103 U/L Normal 38-113 [facility] Comment on above: Order Comment: Speci men Type: BLOOD SPECIMENOrdering Facility: [facility] Address: [address] [place] [address] Performed By: #### 2 4323-8, 2531-0 ####[facility] LABCLIA [id number] [place] [address] ALT [Catalytic activity/Vol] 53 U/L Normal 10-54 [facility] Comment on above: Order Comment: Speci men Type: BLOOD SPECIMENOrdering Facility: [facility] Address: [address] [place] [address] Performed By: #### 2 4323-8, 2531-0 ####[facility] LABCLIA [id number] [place] [address] Anion gap [Moles/Vol] 10 mmol/L Normal 8-15 [facility] Comment on above: Order Comment: Speci men Type: BLOOD SPECIMENOrdering Facility: [facility] Address: [address] [place] [address] Performed By: #### 2 4328, 2531-0 ####[facility] LABCLIA [id number] [place] [address] AST [Catalytic activity/Vol] 24 U/L Normal 14-40 [facility] Comment on above: Order Comment: Speci men Type: BLOOD SPECIMENOrdering Facility: [facility] Address: [address] [place] [address] Performed By: #### 2 4328, 2531-0 ####[facility] LABCLIA [id number] [place] [address] Bilirubin [Mass/Vol] 0.3 mg/dL Normal 0.2-1.3 [facility] Comment on above: Order Comment: Speci men Type: BLOOD SPECIMENOrdering Facility: [facility] Address: [address] [place] [address] Performed By: #### 2 4328, 2531-0 ####[facility] LABCLIA [id number] [place] [address] Calcium [Mass/Vol] 10.0 mg/dL Normal 8.5-10.2 [facility] Comment on above: Order Comment: Speci men Type: BLOOD SPECIMENOrdering Facility: [facility] Address: [address] [place] [address] Performed By: #### 2 4323-8, 2531-0 ####[facility] LABCLIA [id number] [place] [address] Chloride [Moles/Vol] 103 mmol/L Normal 98-107 [facility] Comment on above: Order Comment: Speci men Type: BLOOD SPECIMENOrdering Facility: [facility] Address: [address] [place], [place] [address] Performed By: #### 2 4323-8, 2531-0 ####[facility] LABCLIA [id number] [place] [address] CO2 [Moles/Vol] 28 mmol/L Normal 22-30 [facility] Comment on above: Order Comment: Speci men Type: BLOOD SPECIMENOrdering Facility: [facility] Address: [address] [place] [address] Performed By: #### 2 4323-8, 2531-0 ####[facility] LABCLIA [id number] [place] [address] Creatinine [Mass/Vol] 1.23 mg/dL High 0.73-1.22 [facility] Comment on above: Order Comment: Speci men Type: BLOOD SPECIMENOrdering Facility: [facility] Address: [address] [place] [address] Performed By: #### 2 4323-8, 2531-0 ####[facility] LABCLIA [id number] [place] [address] Creatinine and Glomerular filtration rate.predicted panel (S/P/Bld) 74 mL/min/1.73m??? Normal >=60 [facility] Comment on above: Order Comment: Speci men Type: BLOOD SPECIMENOrdering Facility: [facility] Address: [address] [place] [address] Result Comment: Kirsten mated Glomerular Filtration Rate [...] GFR. Performed By: #### 2 4323-8, 0 ####[facility] LABCLIA [id number] [place] [address] Glucose [Mass/Vol] 92 mg/dL Normal 74-99 [facility] Comment on above: Order Comment: Speci men Type: BLOOD SPECIMENOrdering Facility: [facility] Address: [address] [place] [address] Result Comment: The [place] Diabetes Association (ADA) provides guidance for cutoff [...] Standards of Medical Care in Diabetes 2016, [place] Diabetes Association. Diabetes Care. 2016.39(Suppl 1). Performed By: #### 2 [address], ####[facility] LABCLIA [id number] [place] [address] Potassium [Moles/Vol] 4.4 mmol/L Normal 3.7-5.1 [facility] Comment on above: Order Comment: Speci men Type: BLOOD SPECIMENOrdering Facility: [facility] Address: [address] [place] [address] Performed By: #### 2 4328, 0 ####[facility] LABIA [id number] [place] [address] Protein [Mass/Vol] 7.2 g/dL Normal 6.3-8.0 [facility] Comment on above: Order Comment: Speci men Type: BLOOD SPECIMENOrdering Facility: [facility] Address: [address] [place] [address] Performed By: #### 2 4328, 0 ####[facility] LABCLIA [id number] [place] [address] Sodium [Moles/Vol] 141 mmol/L Normal 136-144 [facility] Comment on above: Order Comment: Speci men Type: BLOOD SPECIMENOrdering Facility: [facility] Address: [address] [place] [address] Performed By: #### 2 4323-8, 0 ####[facility] LABCLIA [id number] [place] [address] Urea nitrogen [Mass/Vol] 18 mg/dL Normal 9-24 [facility] Comment on above: Order Comment: Speci men Type: BLOOD SPECIMENOrdering Facility: [facility] Address: [address] [place], [place] [address] Performed By: #### 2 4323-8, 0 ####[facility] LABCLIA [id number] [place] [address] GLUCOSE, BLOOD (POC)on 01-03 Glucose [Mass/Vol] 88 mg/dL 74 - 99 mg/dL [facility] Comment on above: Location:[facility], [address] , [place], [place], [address] The Accu-Chek Inform II glucose meter has [...] blood gas instrument) in the above situations. [facility] LACTATE DEHYDROGENASEOrdered By: Bina Aggarwal on 01-04-2024 LDH [Catalytic activity/Vol] 154 U/L 135 - 225 U/L [facility] LDH SerPl-cCncon 01-04-2024 LDH [Catalytic activity/Vol] 154 U/L Normal 135-225 [facility] Comment on above: Order Comment: Speci men Type: BLOOD SPECIMENOrdering Facility: [facility] Address: [place] [id number] Performed By: #### 2 4323-8, 2532-0 ####[facility] LABCLIA [id number] [place] [address] LDH [Catalytic activity/Vol] Ordered By: Bina Aggarwal on 01-04-2024 Interpretation and review of laboratory results Normal [facility] NM PET/CT SKULL-THIGH SUBQon 01-04-2024 NM [...] * Radiopharmaceutical Activity: 14.4 mCi * Radiopharmaceutical: N04-Yfcbacwnweejlxeuf e (FDG) * All reported standardized uptake values represent maximum SUV (SUVmax) per body weight, unless otherwise specified. COMPARISON: FDG PET/CT 08/12/2023 CORRELATION: No relevant imaging available RESULT: REFERENCES: SUV reference values: * Blood pool (descending aorta) activity: SUVmax 2.2 * Background liver activity: SUVmax 2.7 [employer] (topogram) images: No additional findings. Notes and [...] and electroni (more content not included)... 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 He is seeing ENT, in [place]: 02/04/24 @ 130 Address: [address] [place] [address] Alex AliceaNorman Call placed to [phone], Pt seeing Dr Burr, ENT phone # provided [phone]. Will call after 1 pm to inform [...] Signed Report faxed. Images being pushed to [employer]. Allergies As of Date: 12/21/2023 Noted Allergy [...] Dr. Ceballos in the cancer center at [facility] discontinued all of his medication Duglas A [...] contract exists (more content not included)... Normal [facility] CNPN Telephone ([facility]) JOSELYN CARNES ([id number]) 1980 M Date Time Provider Department 12/21/23 [place] [facility] During your visit today, we recorded the following information about you: Vita Mota 12/21/2023 8:55 AM Signed Please refer to ENT in [place] / [facility]. The office phone number is [phone]. Address [address] in [place]. Sangeeta, Please fax records Sylvester, Please follow up on this appt. Thank you Cara Brown 12/21/2023 2:09 PM Signed Sangeeta: Information ready for you. Cara GandhiCassie Tiffanie 12/21/2023 2:34 PM Signed Records faxed to [facility]. Cara Brown 12/31/2023 10:11 AM Signed Called [facility] office spoke with Cassie. She states [...] Dr. Ceballos in the cancer center at [facility] discontinued all of his medication Duglas A [...] Encounter Status:Closed by VITA MOTA on 01/25/24 [facility] CNOVSPon 12-18-2023 CNOVSP Visit (SP) Office (HEMASA) JOSELYN CARNES ([id number]) 1980 M Date Time Provider Department 12/18/23 2:30 PM RICH HILL During your visit today, we recorded the following information about you: Temperature Pulse Respiration Blood pressure 97.8 degrees 67/minute 16/minute 125/79 Weight 96.1 kg Rich Hill MD 12/20/2023 6:23 PM Signed NAME: Joselyn Carnes [facility] NO.: [id number] DATE OF SERVICE: December 18, 2023 (Sandy) [...] lymph nod (more content not included)... [facility] Visit (PSYCA2) DEYVIJOSELYN Mitchell ([id number]) 1980 M Date Time Provider Department 12/09/23 GERALD SAPP PSYCA2 During your visit today, we recorded the following information about you: Gerald Sapp RN 12/09/2023 2:47 PM Signed Palliative Medicine Care Coordination NEW PATIENT NOTE Patient identified by name and date of . 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 Office contact sheet provided [...] treatment at a residential rehab facility in [facility], but not currently seeing a psychiatry provider [...] Date Reviewed: 09/11/2023 Reviewed by: Simran Nelson, DANA.RN PERIOPERATIVE - Fully Assessed Primary Visit Diagnosis:Encounter for [...] Dr. Ceballos in the cancer center at [facility] discontinued all of his medication Duglas A [...] Encounter Status:Closed by GERALD SAPP on 12/09/23 [facility] CNOVon 12-09-2023 CNOV Office Visit (PSYCA2 ) JOSELYN CARNES ([id number]) 1980 M Date Time Provider Department 12/09/23 10:00 AM TOBI PLATA PSYCA2 During your visit today, we recorded the following information about you: Temperature Pulse Respiration Blood pressure 98.3 degrees 84/minute 20/minute 131/82 Weight 98 kg Tobi Plata MD 12/09/2023 12:03 PM Signed [facility] Division of Psycho-Oncology Psychiatry Outpatient Visit- New Patient Encounter In-Person Visit Joselyn Carnes 1980 [id number] Visit date: 12/09/2023 . Visit # 1 [...] who is referred to psycho-oncology service at [facility] by sil thao for Auditory Hallucinations, ADHD. Patient presented to [facility] psychiatry with concerns for auditory hallucination [...] since he [facility] [place] [facility] [place] He denies depressed mood, anxiety or current [...] options in the community. Patient met lymphoma psych social worker Yair at the end of today's visit who will provide resources for community psychiatry. 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 Automated voice message told me the facility is closed on Thursday. I did not get to speak with anyone and left and a voice message -Follow-up as needed. Of note this is not a proper referral to [facility] psychiatry as patient is not in active cancer treatment. 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 While every effort was made to correct voice recognition errors, please kindly be aware that some grammatical or spelling errors may o (more content not included)... Normal [facility] JOSELYN CARNES ([id number]) 1980 M Date Time Provider Department 12/03/23 [...] you please call and schedule. Thanks SANDRA oMrinMary arevalo [facility] 12/04/2023 8:33 AM Signed Sent the information to Dilan Ball, then I will call the Patient to schedule. ABRAN WatsonMary arevalo [facility] 12/07/2023 8:07 AM Signed I called the Patient to give him, his appt date and time of: 12/10 1045 am : Dr. Islas But unfortunantly, he did not answer and does not have a voicemail set up. I will try calling the Patient again in a few hours. ABRAN WatsonMary arevalo [facility] 12/07/2023 1:20 PM Signed I spoke with [...] Date Reviewed: 09/11/2023 Reviewed by: Simran Nelson, DANA.RN PERIOPERATIVE - Fully Assessed Prescriptions as of 12/08/2023 [...] Dr. Ceballos in the cancer center at [facility] discontinued all of his medication Duglas RMA [...] Status:Closed by RACHEL BALL on 12/08/23 Normal [facility] DRUG SCREEN, URINEon 024 AMPHETAMINE/METHAMP Negative Normal NEG [facility] Comment on above: Result Comment: AMPH /METH screening cut off = 1000 ng/mL Performed By: #### D SANCHEZ #### [facility] ([id number]) [address], [address] [place] [address] BARBITURATES Negative Normal NEG [facility] Comment on above: Result Comment: Marilyn iturates screening cut off value = 200 ng/mL Performed By: #### D SANCHEZ #### [facility] ([id number]) [address] [place] [address] BENZODIAZEPINES Negative Normal [facility] Comment on above: Result Comment: Stas odiazepines screening cut off value = 200 ng/mL Performed By: #### D SANCHEZ #### [facility] ([id number]) [address] [place] [address] CANNABINOIDS Negative Normal NEG [facility] Comment on above: Result Comment: Doyle abinoids/THC screening cut off value = 50 ng/mL Performed By: #### D SANCHEZ #### [facility] ([id number]) [address], [address] [place] [address] COCAINE METABOLITE Negative Normal NEG [facility] Comment on above: Result Comment: Coca ine screening cut off value = 300 ng/mL Performed By: #### D SANCHEZ #### [facility] ([id number]) [address], [address] [place] [address] ECSTASY Negative Normal NEG [facility] Comment on above: Result Comment: Ecst asy screening cut off value = 500 ng/mL This report is intended for use in clinical monitoring or management of patients. Performed By: #### D SANCHEZ #### [facility] ([id number]) [address], [address] [place] [address] METHADONE Negative Normal NEG [facility] Comment on above: Result Comment: Meth adone screening cut off value = 300 ng/mL. Performed By: #### D SANCHEZ #### [facility] ([id number]) [address], [address] [place] [address] OPIATES Negative Normal NEG [facility] Comment on above: Result Comment: Opia jethro screening cut off value = 300 ng/mL NOTE: This test is used for the detection of codeine, hydrocodone (>1000 ng/mL), morphine and hydromorphone (>900 ng/mL) in urine. Performed By: #### D SANCHEZ #### [facility] ([id number]) [address], [address] [place] [address] OXYCODONE Negative Normal NEG [facility] Comment on above: Result Comment: Oxyc odone screening cut off value = 300 ng/mL NOTE: This test is used for the detection of oxycodone and oxymorphone in urine. Performed By: #### D SANCHEZ #### [facility] ([id number]) [address], [address] [place] [address] PHENCYCLIDINE Negative Normal NEG [facility] Comment on above: Result Comment: Phen cyclidine screening cut off value = 25 ng/mL Performed By: #### D SANCHEZ #### [facility] ([id number]) [address], [address] [place] [address] Drug Screen, Urineon 024 Amphetamines Screen method >1000 ng/mL Ql (U) Negative Negative^N [facility] Comment on above: AMPH/METH screening cut off = 1000 ng/mL Barbiturates Screen Ql (U) Negative Negative^N [facility] Comment on above: Barbiturates screeni ng cut off value = 200 ng/mL Benzodiazepines Ql (U) Negative Negat diana^N [facility] Comment on above: Benzodiazepines scre ening cut off value = 200 ng/mL Cocaine Ql (U) Negative Negative^N [facility] Comment on above: Cocaine screening cu t off value = 300 ng/mL Methadone Screen Ql (U) Negative Nega tive^N [facility] Comment on above: Methadone screening cut off value = 300 ng/mL. Methylenedioxymethamphet amine Screen Ql (U) Negative Negative^N [facility] Comment on above: Ecstasy screening cu t off value = 500 ng/mL This report is intended for use in clinical monitoring or management of patients. Opiates Screen Ql (U) Negative Negati ve^N [facility] Comment on above: Opiates screening cu t off value = 300 ng/mL NOTE: This test is used for the detection of codeine, hydrocodone (>1000 ng/mL), morphine and hydromorphone (>900 ng/mL) in urine. oxyCODONE Ql (U) Negative Negative^N [facility] Comment on above: Oxycodone screening cut off value = 300 ng/mL NOTE: This test is used for the detection of oxycodone and oxymorphone in urine. Phencyclidine Screen method >25 ng/mL Ql (U) Negative Negative^N [facility] Comment on above: Phencyclidine screen ing cut off value = 25 ng/mL Tetrahydrocannabinol Screen method >50 ng/mL Ql (U) Negative Negative^N [facility] Comment on above: Cannabinoids/THC scr eening cut off value = 50 ng/mL [facility] CNCOon 10-09-2023 CNCO Letter Text Normal [facility] CNOVon 10-09-2023 CNOV Office Visit ([facility]YMC ) DEYVIJOSELYN ([id number]) 1980 M Date Time Provider Department 10/09/23 10:00 AM SIMRAN NELSON [facility] During your visit today, we recorded the [...] Date Reviewed: 09/11/2023 Reviewed by: Simran Nelson APRN.RN PERIOPERATIVE - Fully Assessed Primary Visit Diagnosis:NO SHOW [...] Dr. Ceballos in the cancer center at [facility] discontinued all of his medication Duglas A [...] Encounter Status:Closed by SIMRAN NELSON on 10/09/23 [facility] 09-29-2023 CNPN Telephone (PALMED) JOSELYN CARNES ([id number]) 1980 M Date Time Provider Department 09/29/23 [...] Date Reviewed: 09/11/2023 Reviewed by: Simran Nelson APRN.RN PERIOPERATIVE - Fully Assessed Reason for Visit: Initial [...] Dr. Ceballos in the cancer center at [facility] discontinued all of his medication Duglas A [...] Status:Closed by KEVIN MONAHAN on 09/29/23 Normal [facility] HBV core Ab Ql (S)on 024 Interpretation and review of laboratory results Normal [facility] HBV surface Ab Ql (S)on 07-17 HBV surface Ab Qn (S) mIU/mL [facility] Comment on above: <8 mIU/mL: No serolo gical evidence of immunity to Hepatitis B Virus. >/= 8 to <12 mIU/mL: No serological evidence of immunity to Hepatitis B Virus. >/= 12 mIU/mL: Consistent with serological evidence of immunity to Hepatitis B Virus. [facility] HBV surface Ag Ql (S)on 07-17 Interpretation and review of laboratory results Normal [facility] HCV Ab Ql (S)on 08-13-2023 Interpretation and review of laboratory results Normal [facility] HEP B CORE AB TOTALon 2023 HBV core Ab Ql (S) Negative Negative [facility] Comment on above: No evidence of curre nt or past infection with Hepatitis B virus. Should recent infection be suspected, repeat testing may be considered 3-4 weeks after this draw. HEP B SURF ABon 08-13-2023 HBV surface Ab Ql (S) Negative [facility] Comment on above: No serological evide nce of immunity to Hepatitis B Virus. HEP B SURF AG SCRNon 024 HBV surface Ag Ql (S) Negative Negative [facility] HEPATITIS C ANTIBODY IA WITH CONFIRMATIONon 08-13-2023 HCV Ab Ql (S) Negative Negative [facility] Comment on above: The result suggests no evidence of active infection with Hepatitis C virus. Should recent infection be suspected, repeat testing may be considered 4-6 weeks after this draw. CBC W Auto Differential pane l (Bld)on 08-12-2023 Basophils (Bld) [#/Vol] [facility] Basophils/100 WBC (Bld) 0.4 % [facility] Differential cell count method Nom (Bld) Auto [facility] Eosinophils (Bld) [#/Vol] 0.10 10*3/uL [facility] Eosinophils/100 WBC (Bld) 2.1 % [facility] Erythrocyte distribution width (RBC) [Ratio] 12.6 % 11.5 - 15.0 % [facility] Hematocrit (Bld) [Volume fraction] 43.2 % 39.0 - 51.0 % [facility] Hemoglobin (Bld) [Mass/Vol] 14.8 g/dL 13.0 - 17.0 g/dL [facility] Immature granulocytes (Bld) [#/Vol] [facility] Immature granulocytes/100 WBC (Bld) 0.2 % [facility] Lymphocytes (Bld) [#/Vol] 1.54 10*3/uL [facility] Lymphocytes/100 WBC (Bld) 32.8 % [facility] MCH (RBC) [Entitic mass] 30.5 pg 26. 0 - 34.0 pg [facility] MCHC (RBC) [Mass/Vol] 34.3 g/dL 30.5 - 36.0 g/dL [facility] MCV (RBC) [Entitic vol] 88.9 fL 80.0 - 100.0 fL [facility] Monocytes (Bld) [#/Vol] 0.40 10*3/uL [facility] Monocytes/100 WBC (Bld) 8.5 % C [facility] Neutrophils (Bld) [#/Vol] 2.62 10*3/uL [facility] Neutrophils/100 WBC (Bld) 56.0 % [facility] Nucleated RBC (Bld) [#/Vol] NINF [facility] Nucleated RBC/100 WBC (Bld) [Ratio] 0.0 % /100 WBC [facility] Platelet mean volume (Bld) [Entitic vol] 9.1 fL 9.0 - 12.7 fL [facility] Platelets (Bld) [#/Vol] 223 10*3/uL [facility] RBC (Bld) [#/Vol] 4.86 10*6/uL 4.20 - 6.00 m/uL [facility] WBC (Bld) [#/Vol] 4.69 10*3/uL [facility] 08-12-2023 [facility] Telephone (CNM) JOSELYN CARNES ([id number]) 1980 M Date Time Provider Department 08/12/23 MARIALUISA PORTILLO [facility] During your visit today, we recorded the following information about you: Marialuisa Portillo RN 08/13/2023 8:16 AM Addendum Prior Authorization Documentation Prior authorization requested for: MEDICATION Butran 5 mcg TD patch Submitted via Cover [employer] Name: [employer] and Pharmacy Name: [facility] Authorization approval #: [id number]. RICK# [id number] Dates of Approval: from 08/12/2023 to 11/08/2024 [...] Date Reviewed: 08/11/2023 Reviewed by: Simran Nelson APRN.RN PERIOPERATIVE - Fully Assessed Reason for Visit: Insurance [...] Dr. Ceballos in the cancer center at [facility] discontinued all of his medication Duglas RMA [...] Status:Closed by MARIALUISA PORTILLO on 08/12/23 Normal [facility] Comprehensive metabolic 2000 panelon 08-12-2023 Albumin [Mass/Vol] 5.0 g/dL High 3.9 - 4.9 g/dL [facility] ALP [Catalytic activity/Vol] 96 U/L 38 - 113 U/L [facility] ALT [Catalytic activity/Vol] 100 U/L High 10 - 54 U/L [facility] Anion gap [Moles/Vol] 10 mmol/L 9 - 18 mmol/L [facility] AST [Catalytic activity/Vol] 49 U/L High 14 - 40 U/L [facility] Bilirubin [Mass/Vol] 0.4 mg/dL 0.2 - 1 .3 mg/dL [facility] Calcium [Mass/Vol] 9.9 mg/dL 8.5 - 10. 2 mg/dL [facility] Chloride [Moles/Vol] 103 mmol/L 97 - 10 5 mmol/L [facility] CO2 [Moles/Vol] 26 mmol/L 22 - 30 mmol/L [facility] Creatinine [Mass/Vol] 1.14 mg/dL 0.73 - 1.22 mg/dL [facility] GFR/1.73 sq M.predicted among non-blacks MDRD (S/P/Bld) [Vol rate/Area] 81 mL/min/{1.73_m2} - PINF [facility] Comment on above: Estimated Glomerular Filtration [...] [Mass/Vol] 87 mg/dL 74 - 99 mg/dL [facility] Comment on above: The [place] Diabete s Association (ADA) provides guidance for [...] Standards of Medical Care in Diabetes 2016, [place] Diabetes Association. Diabetes Care. 2016.39(Suppl 1). Interpretation and review of laboratory results Abnormal [facility] Potassium [Moles/Vol] 4.2 mmol/L 3.7 - 5.1 mmol/L [facility] Protein [Mass/Vol] 7.4 g/dL 6.3 - 8.0 g/dL [facility] Sodium [Moles/Vol] 139 mmol/L 136 - 144 mmol/L [facility] Urea nitrogen [Mass/Vol] 21 mg/dL 9 - 24 mg/dL [facility] GLUCOSE, BLOOD (POC)on 08-12 Glucose [Mass/Vol] 80 mg/dL 74 - 99 mg/dL [facility] Comment on above: Location:[facility], [address] [place] [address] , [place], [place], [address] The Accu-Chek Inform II glucose meter has [...] blood gas instrument) in the above situations. [facility] LD LACTATE DEHYDROon 024 LDH [Catalytic activity/Vol] 182 U/L 135 - 225 U/L [facility] No Panel InformationOrdered By: Bina Aggarwal on 08-12-2023 Interpretation and review of laboratory results Normal [facility] PET+CT Whole body Bone W 18F [...] any questions regarding this interpretation, please call [phone]. If you are unable to reach us at the number above, please feel free to contact [facility] at [phone]. DIVISION OF RADIOLOGY * * *Final Report* [...] Background liver activity: SUVmax 3.5; SUVmean 2.3 [employer] (topogram) images: No additional findings. Notes and [...] is likely inflammatory. DIVISION OF RADIOLOGY Provider, [facility] - 08/12/2023 * * *Final Report* [...] Background liver activity: SUVmax 3.5; SUVmean 2.3 [employer] Supervisor (topogram) images: No additional findings. Notes and [...] any questions regarding this interpretation, please call [phone]. If you are unable to reach us at the number above, please feel free to contact [facility] eRadiology at [phone]. [facility] Radiology Study observation (narrative) [facility] PET+CT Whole body Bone W 18F -NaF IVOrdered By: Ccf Provider on 08-12-2023 [facility] URIC ACID BLOODOrdered By: Lina my White on 08-12-2023 Urate [Mass/Vol] 5.2 mg/dL 4.0 - 8.1 mg/dL [facility] [id number] 05-25-2021 SARS-CoV-2 (COVID-19) RNA DONELL+probe Ql (Unsp spec) Not detected Normal [facility] Comment on above: Result Comment: [...] management decisions. Fact sheet for Healthcare Providers: https://www.fda.gov/media/878761/download Fact sheet for Patients: https://www.fda.gov/media/480039/download Methodology: Isothermal Nucleic Acid Amplification Performed By: #### C OVRB #### [facility] [address] [place] [address] Protective Service Specialist: Kali Barnes DO CBC with Diffon 05-18-2021 Abs. Basophil 0.00 k/uL Normal 0.0-0.2 [facility] Comment on above: Performed By: #### A LCB, CDP, MG, CMPX #### [facility] [place] [address] Protective Service Specialist: Kali Barnes DO Abs.Neutrophil (Seg) 8.60 k/uL Normal 1.3-9.1 [facility] Comment on above: Performed By: #### A LCB, CDP, MG, CMPX #### [facility] [address] [place] [address] Protective Service Specialist: Kali Barnes DO Basophils/100 WBC (Bld) 0 % Normal 0-2 [facility] Comment on above: Performed By: #### A LCB, CDP, MG, CMPX #### [facility] [address] [place] [address] Protective Service Specialist: Kali Barnes DO Eosinophils (Bld) [#/Vol] 0.10 10*3/uL Normal 0.0-0.4 [facility] Comment on above: Performed By: #### A LCB, CDP, MG, CMPX #### [facility] [address] [place] [address] Protective Service Specialist: Kali Barnes DO Eosinophils/100 WBC (Bld) 1 % Normal 0-4 [facility] Comment on above: Performed By: #### A LCB, CDP, MG, CMPX #### [facility] [address] [place] [address] Protective Service Specialist: Kali Barnes DO Erythrocyte distribution width (RBC) [Ratio] 14.2 % Normal 11.5-14.9 [facility] Comment on above: Performed By: #### A LCB, CDP, MG, CMPX #### [facility] [address] [place] [address] Protective Service Specialist: Kali Barnes DO Hematocrit (Bld) [Volume fraction] 45.3 % Normal 41-53 [facility] Comment on above: Performed By: #### A LCB, CDP, MG, CMPX #### [facility] [address] [place] [address] Protective Service Specialist: Kali Barnes DO Hemoglobin (Bld) [Mass/Vol] 15.5 g/dL Normal 13.5-17.5 [facility] Comment on above: Performed By: #### A LCB, CDP, MG, CMPX #### [facility] [address] [place] [address] Protective Service Specialist: Kali Barnes DO Lymphocytes (Bld) [#/Vol] 1.30 10*3/uL Normal 1.0-4.8 [facility] Comment on above: Performed By: #### A LCB, CDP, MG, CMPX #### [facility] [place] [address] Protective Service Specialist: Kali Barnes DO Lymphocytes/100 WBC (Bld) 13 % Low 24-44 [facility] Comment on above: Performed By: #### A LCB, CDP, MG, CMPX #### [facility] [place] [address] Protective Service Specialist: Kali Barnes DO MCH (RBC) [Entitic mass] 31.8 pg Normal 26-34 [facility] Comment on above: Performed By: #### A LCB, CDP, MG, CMPX #### [facility] [address] [place] [address] Protective Service Specialist: Kali Barnes DO MCHC (RBC) [Mass/Vol] 34.2 g/dL Normal 31-37 [facility] Comment on above: Performed By: #### A LCB, CDP, MG, CMPX #### [facility] [address] [place] [address] Protective Service Specialist: Kali Barnes DO MCV (RBC) [Entitic vol] 93.0 fL Normal 80-100 M [facility] Comment on above: Performed By: #### A LCB, CDP, MG, CMPX #### [facility] [place] [address] Protective Service Specialist: Kali Barnes DO Monocytes (Bld) [#/Vol] 0.50 10*3/uL Normal 0.1-1.3 [facility] Comment on above: Performed By: #### A LCB, CDP, MG, CMPX #### [facility] [address] [place] [address] Protective Service Specialist: Kali Barnes DO Monocytes/100 WBC (Bld) 5 % Normal 1-7 [facility] Comment on above: Performed By: #### A LCB, CDP, MG, CMPX #### [facility] [address] [place] [address] Protective Service Specialist: Kali Barnes DO Neutrophil (Seg) 81 % High 36-66 [facility] Comment on above: Performed By: #### A LCB, CDP, MG, CMPX #### [facility] [address] [place] [address] Protective Service Specialist: Kali Barnes DO Platelet mean volume (Bld) [Entitic vol] 8.0 fL Normal 6.0-12.0 [facility] Comment on above: Performed By: #### A LCB, CDP, MG, CMPX #### [facility] [address] [place] [address] Protective Service Specialist: Kali Barnes DO Platelets (Bld) [#/Vol] 208 10*3/uL Normal 150-450 [facility] Comment on above: Performed By: #### A LCB, CDP, MG, CMPX #### [facility] [address] [place] [address] Protective Service Specialist: Kali Barnes DO RBC (Bld) [#/Vol] 4.87 10*6/uL Normal 4.5-5.9 [facility] Comment on above: Performed By: #### A LCB, CDP, MG, CMPX #### [facility] [address] [place] [address] Protective Service Specialist: Kali Barnes DO WBC (Bld) [#/Vol] 10.6 10*3/uL Normal 3.5-11.0 [facility] Comment on above: Performed By: #### A LCB, CDP, MG, CMPX #### [facility] [address] [place] [address] Protective Service Specialist: Kali Barnes DO Abs.Imm.Granulocyte NOT REPORTED Normal 0.00-0.30 [facility] [facility] Comment on above: Performed By: #### A LCB, CDP, MG, CMPX #### [facility] [address] [place] [address] Protective Service Specialist: Kali Barnes DO Auto Diff Performed NOT REPORTED Normal [facility] Comment on above: Performed By: #### A LCB, CDP, MG, CMPX #### [facility] [address] [place] [address] Protective Service Specialist: Kali Barnes DO Immature Granulocyte NOT REPORTED Normal 0 [facility] Comment on above: Performed By: #### A LCB, CDP, MG, CMPX #### [facility] [address] [facility] [address] Protective Service Specialist: Kali Barnes DO NRBC Automated NOT REPORTED Normal [facility] Comment on above: Performed By: #### A LCB, CDP, MG, CMPX #### [facility] [address] [place] [address]. [place] [address] Protective Service Specialist: Kali Barnes DO Platelet Comment NOT REPORTED Normal [facility] Comment on above: Performed By: #### A LCB, CDP, MG, CMPX #### [facility] [address] [place] [address]. [place] [address] Protective Service Specialist: Kali Barnes DO RBC morphology finding Nom (Bld) NOT REPORTED Normal [facility] Comment on above: Performed By: #### A LCB, CDP, MG, CMPX #### [facility] [address] [place] [address]. [place] [address] Protective Service Specialist: Kali Barnes DO WBC Morphology NOT REPORTED Normal [facility] Comment on above: Performed By: #### A LCB, CDP, MG, CMPX #### [facility] [address] Protective Service Specialist: Kali Barnes DO Comp Metabolic Pr/rfx MGon 1 07-19-2020 Potassium [Moles/Vol] 3.4 mmol/L Low 3.7-5.3 [facility] Comment on above: Performed By: #### A LCB, CDP, MG, CMPX #### [facility] [address] [place] [address] Protective Service Specialist: Kali Barnes DO (cont.) Normal [facility] Comment on above: Result Comment: Aver age GFR for 40-49 years old: 99 mL/min/1.73sq m Chronic Kidney Disease: <60 mL/min/1.73sq m Kidney failure: <15 mL/min/1.73sq m eGFR calculated using average adult body mass. Additional eGFR calculator available at: http://www.[facility].FlyClip/multiple_crcl_2012.htm Performed By: #### A LCB, CDP, MG, CMPX #### [facility] [address] Protective Service Specialist: Kali Barnes DO Albumin [Mass/Vol] 5.3 g/dL High 3.5-5.2 [facility] Comment on above: Performed By: #### A LCB, CDP, MG, CMPX #### [facility] [address] [place] [address] Protective Service Specialist: Kali Branes DO Alkaline Phos 98 U/L Normal 40-129 [facility] Comment on above: Performed By: #### A LCB, CDP, MG, CMPX #### [facility] [address] [place] [address] Protective Service Specialist: Kali Barnes DO ALT [Catalytic activity/Vol] 21 U/L Normal 5-41 [facility] Comment on above: Performed By: #### A LCB, CDP, MG, CMPX #### [facility] [address] [place] [address] Protective Service Specialist: Kali Barnes DO Anion gap [Moles/Vol] 15 mmol/L Normal 9-17 [facility] Comment on above: Performed By: #### A LCB, CDP, MG, CMPX #### [facility] [address] [place] [address] Protective Service Specialist: Kali Barnes DO AST [Catalytic activity/Vol] 25 U/L Normal <40 [facility] Comment on above: Performed By: #### A LCB, CDP, MG, CMPX #### [facility] [address] [place] [address] Protective Service Specialist: Kali Barnes DO Bilirubin [Mass/Vol] 0.34 mg/dL Normal 0.3-1.2 [facility] Comment on above: Performed By: #### A LCB, CDP, MG, CMPX #### [facility] [address] [place] [address] Protective Service Specialist: Kali Barnes DO Calcium [Mass/Vol] 9.8 mg/dL Normal 8.6-10.4 [facility] Comment on above: Performed By: #### A LCB, CDP, MG, CMPX #### [facility] [place] [address] Protective Service Specialist: Kali Barnes DO Chloride [Moles/Vol] 102 mmol/L Normal 98-107 [facility] Comment on above: Performed By: #### A LCB, CDP, MG, CMPX #### [facility] [address] Protective Service Specialist: Kali Barnes DO CO2 [Moles/Vol] 22 mmol/L Normal 20-31 [facility] Comment on above: Performed By: #### A LCB, CDP, MG, CMPX #### [facility] [address] Protective Service Specialist: Kali Barnes DO Creatinine [Mass/Vol] 1.05 mg/dL Normal 0.70-1.20 [facility] Comment on above: Performed By: #### A LCB, CDP, MG, CMPX #### [facility] [place] [address] Protective Service Specialist: Kali Barnes DO GFR, Amer >60 Normal >60 [facility] Comment on above: Performed By: #### A LCB, CDP, MG, CMPX #### [facility] [address] [facility] [address] Protective Service Specialist: Kali Barnes DO GFR,non Amer >60 Normal >60 [facility] Comment on above: Performed By: #### A LCB, CDP, MG, CMPX #### [facility] [address] [facility] [address] Protective Service Specialist: Kail Barnes DO Glucose [Mass/Vol] 73 mg/dL Normal 70-99 [facility] Comment on above: Performed By: #### A LCB, CDP, MG, CMPX #### [facility] [address] Protective Service Specialist: Kali Barnes DO Protein [Mass/Vol] 7.8 g/dL Normal 6.4-8.3 [facility] Comment on above: Performed By: #### A LCB, CDP, MG, CMPX #### [facility] [address] Protective Service Specialist: Kali Barnes DO Sodium [Moles/Vol] 139 mmol/L Normal 135-144 [facility] Comment on above: Performed By: #### A LCB, CDP, MG, CMPX #### [facility] [address] Protective Service Specialist: Kali Barnes DO Urea nitrogen [Mass/Vol] 10 mg/dL Normal 6-20 [facility] Comment on above: Performed By: #### A LCB, CDP, MG, CMPX #### [facility] [address] Protective Service Specialist: Kali Barnes DO Albumin/Glob Ratio NOT REPORTED Normal 1.0-2.5 [facility] Comment on above: Performed By: #### A LCB, CDP, MG, CMPX #### [facility] [address] [facility] [address] Protective Service Specialist: Kali Barnes DO BUN/CRE Ratio NOT REPORTED Normal 9-20 [facility] Comment on above: Performed By: #### A LCB, CDP, MG, CMPX #### [facility] [address] [facility] [address] Protective Service Specialist: Kali Barnes DO Staging: NOT REPORTED Normal [facility] Comment on above: Performed By: #### A LCB, CDP, MG, CMPX #### [facility] [address] [facility] [address] Protective Service Specialist: Kali Barnes DO Ethanol Alcoholon 3 Ethanol [Mass/Vol] 145 mg/dL High <10 [facility] Comment on above: Performed By: #### A LCB, CDP, MG, CMPX #### [facility] [address] [facility] [address] Protective Service Specialist: Kali Barnes DO Ethanol percent 0.145 % Normal [facility] Comment on above: Performed By: #### A LCB, CDP, MG, CMPX #### [facility] [address] [facility] [address] Protective Service Specialist: Kali Barnes DO Magnesiumon 05-18-2021 Magnesium [Mass/Vol] 2.5 mg/dL Normal 1.6-2.6 [facility] Comment on above: Performed By: #### A LCB, CDP, MG, CMPX #### [facility] [address] [facility] [address] Protective Service Specialist: Kali Barnes DO [id number] 05-18-2021 SARS-CoV-2 (COVID-19) RNA DONELL+probe Ql (Unsp spec) Not detected Normal NOTDET [facility] Comment on above: Result Comment: Rapid [...] management decisions. Fact sheet for Healthcare Providers: https://www.fda.gov/media/291163/download Fact sheet for Patients: https://www.fda.gov/media/167505/download Methodology: Isothermal Nucleic Acid Amplification Performed By: #### C OVRB #### [facility] [address] [place] [address] Protective Service Specialist: Kali Barnes DO Cryoglobulinson 12-10-2018 Cryoglobulins 0 mg/dL Normal 0-10 [facility] Comment on above: Performed By: #### C DP, PT, TROPI, CMPX #### [facility] [address] [place] [address] Protective Service Specialist: Sanju Eli MD MRI BRAIN WO CONTRASTon [...] Bowen MD 12/08/18 Final result Normal [facility] [id number] Abon 2018 B2 Glycoprot I, IgG 0 SGU Normal 0-20 [facility] Comment on above: Performed By: #### C DP, PT, TROPI, CMPX #### [facility] [employer] [facility] [place] [address] Protective Service Specialist: Sanju Eli MD B2 Glycoprot I, IgM 1 SMU Normal 0-20 [facility] Comment on above: Result Comment: (NOT E) INTERPRETIVE INFORMATION: Y2Aystgnllhweu I, IgG and IgM Antibody The persistent [...] other criteria phospholipid antibody tests. Performed by [facility], [address] [place] [phone] [email or web address], Moreno Hall MD, Lab. Director Performed By: #### C DP, PT, TROPI, CMPX #### [facility] [address] [place] [address] [phone] Protective Service Specialist: Sanju Eli MD CH50on 12-08-2018 CH50 96 Units Normal 60-144 [facility] Comment on above: Result Comment: (NOT E) INTERPRETIVE INFORMATION: Complement Activity, Total EIA 59 Units or less .......... Low 60-144 Units .............. Normal 145 Units or greater ....... High Performed by [facility], [address] [place] [address] [email or web address], Moreno Hall MD, Lab. Director Performed By: #### C DP, PT, TROPI, CMPX #### [facility] [address] [place] [address] [phone] Protective Service Specialist: Sanju Eli MD Protein C Antigenicon 2018 Protein [Mass/Vol] 125 % Normal 63-153 [facility] Comment on above: Result Comment: (NOT E) INTERPRETIVE INFORMATION: Protein C, Total Antigen Patients on warfarin may have decreased protein C values. Patients should be off warfarin therapy for two weeks for accurate measurement of protein C. Access complete set of age- and/or gender-specific reference intervals for this test in the [facility] Test Directory ([employer]). Performed by [facility], [address] [place] [address] [email or web address], Moreno Hall MD, Lab. Director Performed By: #### C DP, PT, TROPI, CMPX #### [facility] [address] [place] [address] [phone] Protective Service Specialist: Sanju Eli MD Protein S, Antigenicon 12-08 Protein [Mass/Vol] 99 % Normal 84-134 [facility] Comment on above: Result Comment: (NOT E) INTERPRETIVE INFORMATION: Protein S, Total Antigen Patients on warfarin may have decreased protein S values. Patients should be off warfarin therapy for two weeks for accurate measurement of protein S. Access complete set of age- and/or gender-specific reference intervals for this test in the [employer] Test Directory ([employer] B[employer]). Performed by [facility], [facility] [place] [address] www.[email or web address], Moreno Hall MD, Lab. Director Performed By: #### C DP, PT, TROPI, CMPX #### [facility] [address] [place] [address] Protective Service Specialist: Sanju Eli MD Factor V Activityon 12-08-19 19 Factor V Activity 123 % Normal 50-150 [facility] Comment on above: Performed By: #### C DP, PT, TROPI, CMPX #### [facility] [address] [place] [address] Protective Service Specialist: Sanju Eli MD Lupus Anticoagulanton 2018 Dilute Eulogio Viper Negative Normal [facility] Comment on above: Performed By: #### C DP, PT, TROPI, CMPX #### [facility] [address] [place] [address] Protective Service Specialist: Sanju Eli MD Antiphospholipid IgA 0.6 APU Normal <12 [facility] Comment on above: Result Comment: Reference Range: 12 - 15 Equivocal >15 Positive Performed By: #### C DP, PT, TROPI, CMPX #### [facility] [address] [place] [address] Protective Service Specialist: Sanju Eli MD Antiphospholipid IgG 2.6 GPU Normal <20 [facility] Comment on above: Result Comment: Reference Range: 20.0 - 29.9 Low Positive 30.0 - 79.9 Moderate Positive >79.9 High Positive Performed By: #### C DP, PT, TROPI, CMPX #### [address] [address] Protective Service Specialist: Sanju Eli MD Antiphospholipid IgM 2.0 MPU Normal <20 [facility] Comment on above: Result Comment: Reference Range: 20.0 - 29.9 Low Positive 30.0 - 79.9 Moderate Positive >79.9 High Positive Performed By: #### C DP, PT, TROPI, CMPX #### [address] [address] Protective Service Specialist: Sanju Eli MD Neutrophil Cytopl Abon 12-07 MPO-ANCA 7 AU/mL Normal <100 [facility] Comment on above: Result Comment: Reference Ranges (MPO and PR3): <100 AU/mL Negative 100-120 AU/mL Equivocal >120 AU/mL Positive Performed By: #### C DP, PT, TROPI, CMPX #### [address] [address] Protective Service Specialist: Sanju Eli MD PR3-ANCA 11 AU/mL Normal <100 [facility] Comment on above: Result Comment: Reference Ranges (MPO and PR3): <100 AU/mL Negative 100-120 AU/mL Equivocal >120 AU/mL Positive Performed By: #### C DP, PT, TROPI, CMPX #### [address] [address] Protective Service Specialist: Sanju Eli MD JACKY Screenon 12-06-2018 JACKY Screen Negative Normal NEG [facility] Comment on above: Result Comment: This test was run on the [employer] JACKY test system. The system provides ten test results (HEp-2NA, dsDNA, SSA, SSB, Sm, LEARNING AND DEVELOPMENT CONSULTANT, Scl-70, Bettie-1, Centromere and Histone analytes) from a single patient sample. A negative JACKY screen indicates that the specimen was negative for all ten markers. Performed By: #### C DP, PT, TROPI, CMPX #### [address] [address] Protective Service Specialist: Sanju Eli MD MRI BRAIN WO CONTRASTon [...] Kelley MD 12/06/18 Final result Normal [facility] MTHFR Gene Mutationon 2018 Report to follow: [id number] [facility] Comment on above: Result Comment: SEE SEPARATE REPORT Performed By: #### C DP, PT, TROPI, CMPX #### [facility] [address] [place] [address] [phone] Protective Service Specialist: Sanju Eli MD PT Mutation [id number] 12-07-19 19 Report to follow: [id number] [facility] Comment on above: Result Comment: SEE SEPARATE REPORT Performed By: #### C DP, PT, TROPI, CMPX #### [facility] [address] [place] [address] Protective Service Specialist: Sanju Eli MD C-Reactive Proteinon 019 CRP [Mass/Vol] 1.3 mg/L Normal 0.0-5.0 [facility] Comment on above: Performed By: #### C DP, PT, TROPI, CMPX #### [facility] [address] [place] [address] Protective Service Specialist: Sanju Eli MD DNA Testingon 12-05-2018 DNA Testing (NOTE) [id number] [facility] [address] [place] [phone] FACTOR II (PROTHROMBIN) MUTATION ANALYSIS REPORT [facility] Alejandro Garcia MD, Ovidio Leyva MD Specimen(s) Received: Peripheral blood, PTI Clinical Information: Right Sided Weakness RESULTS: MOLECULAR GENETIC DIAGNOSIS: Negative for Prothrombin 09373V Mutation INTERPRETATION: The Factor II (Prothrombin) mutation (37635VU) [c.*97G>A] was not detected in this study. This patient may, however, still be at risk for venous thrombosis due to another genetic predisposition including the Factor V Leiden (1691GA) mutation or either of the 5, 10-methylenetetrahydr ofolate reductase (MTHFR) mutations (677T and F9871Z). Additional molecular testing is available for these [...] been identified in exon 14 at position [address]181 of the prothrombin gene (87412LS). This allele has a population frequency of 1.2% and is associated with a 2.8 fold increased risk of venous thrombosis in individuals of [place] ancestry. Patient DNA is assayed for the presence of wild type or mutant gene sequences in the Factor II (Prothrombin) gene by the Invader Factor II test that utilizes [employer] chemistry for detecting gene-specific sequences. Target amplification [...] Invader and Cleav[employer] are registered trademarks of [employer] This test is performed pursuant to an agreement with [employer] Electronically Signed Out Alejandro Garcia M.D. 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 Negative for MTHFR 677T Mutation INTERPRETATION: Using the methodology described, this patient was found to be a carrier of the MTHFR K5024U [c.1286A>C(p.Sst444Dq a)] mutation. The presence of this mutation in the heterozygous state is not an independent risk factor associated with increased risk of hyperhomocysteinemia, venous thromboembolism or ischemic cardiovascular disease. This patient may, however, still be at risk for venous thrombosis due to another genetic predisposition including the Factor V Leiden mutation or Prothrombin 99994A mutation. Additional molecular testing is available for these mutations in this laboratory. In addition, other etiologies not studied in this assay may predispose this patient to venous thrombosis. Genetic counseling is recommended to discuss the implications of this testing. In addition, the study of other at-risk family members is recommended. Please contact the [facility] at [phone]. This molecular test has been approved for [...] the remethylation of homocysteine. The C677T and I9887N mutations in this gene in either a heterozygous or homozygous state correlate with reduced enzyme activity. Increased plasma homocysteine levels (hyperhomocysteinemia ) as a result of reduced enzyme activity and increased thermolability occur in individuals homozygous for the C677T mutation or in individuals carrying one C677T mutation and one N0394N mutation (compound heterozygosity). Patient DNA is assayed for the presence of wild type or mutant gene sequences in the MTHFR gene by the [employer]ader MTHFR test that utilizes [employer] chemistry for detecting gene-specific sequences. Target amplification [...] Invader and Cle[employer] are registered trademarks of [employer]. This test is performed pursuant to an agreement with [employer] Electronically Signed Out Alejandro Garcia M.D. Normal [facility] Comment on above: Performed By: #### C DP, PT, TROPI, CMPX #### [employer] [employer] [address] [place] [address] [phone] Protective Service Specialist: Sanju Eli MD Hemoglobin A1Con 12-05-2018 HbA1c (Bld) [Mass fraction] 5.3 % Normal 4.0-6.0 [facility] Comment on above: Performed By: #### C BC, LIPR, BMP, GLYHGB #### [facility] [employer] [address] [place] [address] [phone] Protective Service Specialist: Sanju Eli MD HbA1c (Bld) [Mass fraction] 105 mg/dL Normal [facility] Comment on above: Result Comment: The ADA and AACC recommend providing the estimated average glucose result to permit better patient understanding of their HBA1c result. Performed By: #### C BC, LIPR, BMP, GLYHGB #### [address] [address] Protective Service Specialist: Sanju Eli MD Lupus Anticoagulanton 2018 aPTT Coag (Bld) [Time] 23.3 s Normal 20.5-30.5 [facility] Comment on above: Performed By: #### C DP, PT, TROPI, CMPX #### [address] [address] Protective Service Specialist: Sanju Eli MD INR Coag (PPP) [Relative time] 0.9 {INR} Normal [facility] Comment on above: Result Comment: Therapeutic Range: Moderate Anticoagulant Intensity: INR = 2.0-3.0 High Anticoagulant Intensity: INR = 2.5-3.5 Performed By: #### C DP, PT, TROPI, CMPX #### [address] [address] Protective Service Specialist: Sanju Eli MD PT Coag (PPP) [Time] 10.1 s Normal 9.0-12.0 [facility] Comment on above: Performed By: #### C DP, PT, TROPI, CMPX #### [address] [address] Protective Service Specialist: Sanju Eli MD Lupus Anticoagulant NOT REPORTED Normal [facility] Comment on above: Performed By: #### C DP, PT, TROPI, CMPX #### [address] [address] Protective Service Specialist: Sanju Eli MD MRI CERVICAL SPINE WO [...] Govea MD 12/05/18 Final result Normal [facility] Sedimentation Rateon 019 Sedimentation Rate 4 mm Normal 0-10 [facility] Comment on above: Performed By: #### C DP, PT, TROPI, CMPX #### [employer] [address] [place] [address] Protective Service Specialist: Sanju Eli MD Basic Metabolic Profon 12-04 (cont.) Normal [facility] Comment on above: Result Comment: Aver age GFR for 30-39 years old: 107 mL/min/1.73sq m Chronic Kidney Disease: <60 mL/min/1.73sq m Kidney failure: <15 mL/min/1.73sq m eGFR calculated using average adult body mass. Additional eGFR calculator available at: http://www.[employer]/multiple_crcl_2012.htm ADDED ON Performed By: #### C BC, LIPR, BMP, GLYHGB #### [facility] [address] [place] [address] Protective Service Specialist: Sanju Eli MD Anion gap [Moles/Vol] 16 mmol/L Normal 9-17 [facility] Comment on above: Result Comment: ADDE D ON Performed By: #### C BC, LIPR, BMP, GLYHGB #### [facility] [employer] [address] [place] [address] Protective Service Specialist: Sanju Eli MD Calcium [Mass/Vol] 8.8 mg/dL Normal 8.6-10.4 [facility] Comment on above: Result Comment: ADDE D ON Performed By: #### C BC, LIPR, BMP, GLYHGB #### [facility] [employer] [address] [place] [address] Protective Service Specialist: Sanju Eli MD Chloride [Moles/Vol] 105 mmol/L Normal 98-107 [facility] Comment on above: Result Comment: ADDE D ON Performed By: #### C BC, LIPR, BMP, GLYHGB #### [facility] [place] [address] Protective Service Specialist: Sanju Eli MD CO2 [Moles/Vol] 18 mmol/L Low 20-31 [facility] Comment on above: Result Comment: ADDE D ON Performed By: #### C BC, LIPR, BMP, GLYHGB #### [facility] [employer] [address] [place] [address] Protective Service Specialist: Sanju Eli MD Creatinine [Mass/Vol] 1.20 mg/dL Normal 0.70-1.20 [facility] [facility] Comment on above: Result Comment: ADDE D ON Performed By: #### C BC, LIPR, BMP, GLYHGB #### [facility] [address] [place] [address] Protective Service Specialist: Sanju Eli MD GFR, Amer >60 Normal >60 [facility] Comment on above: Result Comment: ADDE D ON Performed By: #### C BC, LIPR, BMP, GLYHGB #### [employer] [address] [place] [address] Protective Service Specialist: Sanju Eli MD GFR,non Amer >60 Normal >60 [facility] Comment on above: Result Comment: ADDE D ON Performed By: #### C BC, LIPR, BMP, GLYHGB #### [employer] [address] [place] [address]147 Protective Service Specialist: Sanju Eli MD Glucose [Mass/Vol] 76 mg/dL Normal 70-99 [facility] Comment on above: Result Comment: ADDE D ON Performed By: #### C BC, LIPR, BMP, GLYHGB #### [employer] [address] [place] [address]802 Protective Service Specialist: Sanju Eli MD Potassium [Moles/Vol] 4.1 mmol/L Normal 3.7-5.3 [facility] Comment on above: Result Comment: ADDE D ON Performed By: #### C BC, LIPR, BMP, GLYHGB #### [employer] [facility] [address] [place] [address]307 Protective Service Specialist: Sanju Eli MD Sodium [Moles/Vol] 139 mmol/L Normal 135-144 [facility] Comment on above: Result Comment: ADDE D ON Performed By: #### C BC, LIPR, BMP, GLYHGB #### [facility] [place] [address] Protective Service Specialist: Sanju Eli MD Urea nitrogen [Mass/Vol] 14 mg/dL Normal -20 [facility] Comment on above: Result Comment: ADDE D ON Performed By: #### C BC, LIPR, BMP, GLYHGB #### [facility] [address] [place] [address] Protective Service Specialist: Sanju Eli MD BUN/CRE Ratio NOT REPORTED Normal - [facility] Comment on above: Performed By: #### C BC, LIPR, BMP, GLYHGB #### [facility] [address] [place] [address] Protective Service Specialist: Sanju Eli MD Staging: NOT REPORTED Normal [facility] Comment on above: Performed By: #### C BC, LIPR, BMP, GLYHGB #### [facility] [address] [place] [address]45 Protective Service Specialist: Sanju Eli MD CBCon 12-04-2018 Erythrocyte distribution width (RBC) [Ratio] 15.7 % High 11.8-14.4 [facility] Comment on above: Performed By: #### C BC, LIPR, BMP, GLYHGB #### [facility] [address] [place] [address]3342 Protective Service Specialist: Sanju Eli MD Hematocrit (Bld) [Volume fraction] 39.9 % Low 40.7-50.3 [facility] Comment on above: Performed By: #### C BC, LIPR, BMP, GLYHGB #### [facility] [address] [place] [address] 51049 Protective Service Specialist: Sanju Eli MD Hemoglobin (Bld) [Mass/Vol] 12.7 g/dL Low 13.0-17.0 [facility] Comment on above: Performed By: #### C BC, LIPR, BMP, GLYHGB #### [facility] [address] [place] [address] 48571 Protective Service Specialist: Sanju Eli MD MCH (RBC) [Entitic mass] 30.0 pg Normal 25.2-33.5 [facility] Comment on above: Performed By: #### C BC, LIPR, BMP, GLYHGB #### [address] [address] Protective Service Specialist: Sanju Eli MD MCHC (RBC) [Mass/Vol] 31.8 g/dL Normal 28.4-34.8 [facility] Comment on above: Performed By: #### C BC, LIPR, BMP, GLYHGB #### [address] [address] Protective Service Specialist: Sanju Eli MD MCV (RBC) [Entitic vol] 94.1 fL Normal 82.6-102.9 [facility] Comment on above: Performed By: #### C BC, LIPR, BMP, GLYHGB #### [address] [address] Protective Service Specialist: Sanju Eli MD NRBC Automated 0.0 per 100 WBC Normal 0.0 [facility] Comment on above: Performed By: #### C BC, LIPR, BMP, GLYHGB #### [address] [address] Protective Service Specialist: Sanju Eli MD Platelet mean volume (Bld) [Entitic vol] 9.5 fL Normal 8.1-13.5 [facility] Comment on above: Performed By: #### C BC, LIPR, BMP, GLYHGB #### [address] [address] Protective Service Specialist: Sanju Eli MD Platelets (Bld) [#/Vol] 210 10*3/uL Normal 138-453 [facility] Comment on above: Performed By: #### C BC, LIPR, BMP, GLYHGB #### [facility] [address] [place] [address] Protective Service Specialist: Sanju Eli MD RBC (Bld) [#/Vol] 4.24 10*6/uL Normal 4.21-5.77 [facility] Comment on above: Performed By: #### C BC, LIPR, BMP, GLYHGB #### [facility] [address] [place] [address] Protective Service Specialist: Sanju Eli MD WBC (Bld) [#/Vol] 5.1 10*3/uL Normal 3.5-11.3 [facility] Comment on above: Performed By: #### C BC, LIPR, BMP, GLYHGB #### [address] [address] Protective Service Specialist: Sanju Eli MD Comp Metabolic Pr/rfx MGon 0 - Albumin [Mass/Vol] 4.4 g/dL Normal 3.5-5.2 [facility] Comment on above: Performed By: #### C DP, PT, TROPI, CMPX #### [facility] [address] [place] [address] Protective Service Specialist: Sanju Eli MD Albumin/Globulin [Mass ratio] 1.7 {ratio} Normal 1.0-2.5 [facility] Comment on above: Performed By: #### C DP, PT, TROPI, CMPX #### [facility] [address] [place] [address]21 Protective Service Specialist: Sanju Eli MD Alkaline Phos 84 U/L Normal 40-129 [facility] Comment on above: Performed By: #### C DP, PT, TROPI, CMPX #### [facility] [address] [place] [address] Protective Service Specialist: Sanju Eli MD ALT [Catalytic activity/Vol] 19 U/L Normal 5-41 [facility] Comment on above: Performed By: #### C DP, PT, TROPI, CMPX #### [facility] [address] [place] [address]35 Protective Service Specialist: Sanju Eli MD Anion gap [Moles/Vol] 10 mmol/L Normal 9-17 [facility] Comment on above: Performed By: #### C DP, PT, TROPI, CMPX #### [facility] [address] [place] [address] 077[address] Protective Service Specialist: Sanju Eli MD AST [Catalytic activity/Vol] 23 U/L Normal <40 [facility] Comment on above: Performed By: #### C DP, PT, TROPI, CMPX #### [address] [address] Protective Service Specialist: Sanju Eli MD Bilirubin Ql (U) 0.22 mg/dL Low 0.3-1.2 [facility] Comment on above: Performed By: #### C DP, PT, TROPI, CMPX #### [facility] [address] [place] [address] Protective Service Specialist: Sanju Eli MD Calcium [Mass/Vol] 8.9 mg/dL Normal 8.6-10.4 [facility] Comment on above: Performed By: #### C DP, PT, TROPI, CMPX #### [facility] [address] [place] [address] Protective Service Specialist: Sanju Eli MD Chloride [Moles/Vol] 107 mmol/L Normal 98-107 [facility] Comment on above: Performed By: #### C DP, PT, TROPI, CMPX #### [facility] [address] [place] [address] Protective Service Specialist: Sanju Eli MD CO2 [Moles/Vol] 24 mmol/L Normal 20-31 [facility] Comment on above: Performed By: #### C DP, PT, TROPI, CMPX #### [address] [address] Protective Service Specialist: Sanju Eli MD Creatinine [Mass/Vol] 1.25 mg/dL High 0.70-1.20 [facility] Comment on above: Performed By: #### C DP, PT, TROPI, CMPX #### [address] [address] Protective Service Specialist: Sanju Eli MD GFR, Amer >60 Normal >60 [facility] Comment on above: Performed By: #### C DP, PT, TROPI, CMPX #### [address] [address] Protective Service Specialist: Sanju Eli MD GFR,non Amer >60 Normal >60 [facility] Comment on above: Performed By: #### C DP, PT, TROPI, CMPX #### [address] [address] Protective Service Specialist: Sanju Eli MD Glucose [Mass/Vol] 79 mg/dL Normal 70-99 [facility] Comment on above: Performed By: #### C DP, PT, TROPI, CMPX #### [address] [address] Protective Service Specialist: Sanju Eli MD Potassium [Moles/Vol] 3.9 mmol/L Normal 3.7-5.3 [facility] Comment on above: Performed By: #### C DP, PT, TROPI, CMPX #### [address] [address] Protective Service Specialist: Sanju Eli MD Protein [Mass/Vol] 7.0 g/dL Normal 6.4-8.3 [facility] Comment on above: Performed By: #### C DP, PT, TROPI, CMPX #### [address] [address] Protective Service Specialist: Sanju Eli MD Sodium [Moles/Vol] 141 mmol/L Normal 135-144 [facility] Comment on above: Performed By: #### C DP, PT, TROPI, CMPX #### [address] [address] Protective Service Specialist: Sanju Eli MD Urea nitrogen [Mass/Vol] 13 mg/dL Normal 6-20 [facility] Comment on above: Performed By: #### C DP, PT, TROPI, CMPX #### [address] [address] Protective Service Specialist: Sanju Eli MD (cont.) Normal [facility] Comment on above: Result Comment: Aver age GFR for 30-39 years old: 107 mL/min/1.73sq m Chronic Kidney Disease: <60 mL/min/1.73sq m Kidney failure: <15 mL/min/1.73sq m eGFR calculated using average adult body mass. Additional eGFR calculator available at: http://www.[employer].FlyClip/multiple_crcl_2012.htm Performed By: #### C DP, PT, TROPI, CMPX #### [address] [address] Protective Service Specialist: Sanju Eli MD Drug Scr, Abuse, Uron 2018 Amphetamine(s),Ur Negative Normal NEG [facility] Comment on above: Result Comment: (Positive cutoff 1000 ng/mL) Performed By: #### C DP, PT, TROPI, CMPX #### [facility] [address] [place] [address] Protective Service Specialist: Sanju Eli MD Barbiturate(s),Ur Negative Normal NEG [facility] Comment on above: Result Comment: (Positive cutoff 200 ng/mL) Performed By: #### C DP, PT, TROPI, CMPX #### [facility] [address] [place] [address] Protective Service Specialist: Sanju Eli MD Base excess Calc (Bld) [Moles/Vol] Positive Abnormal NEG [facility] Comment on above: Result Comment: (Positive cutoff 300 ng/mL) Performed By: #### C DP, PT, TROPI, CMPX #### [employer] [address] [place] [address] Protective Service Specialist: Sanju Eli MD Benzodiazepine(s) Negative Normal NEG [facility] Comment on above: Result Comment: (Positive cutoff 200 ng/mL) Performed By: #### C DP, PT, TROPI, CMPX #### [facility] [address] [place] [address] Protective Service Specialist: Sanju Eli MD Cannabinoid(s),Ur Negative Normal NEG [facility] Comment on above: Result Comment: (Positive cutoff 50 ng/mL) Performed By: #### C DP, PT, TROPI, CMPX #### [facility] [address] [place] [address] Protective Service Specialist: Sanju Eli MD Interpretive Info Assay provides medical screening only. The absence of expected drug(s) and/or Normal [facility] Comment on above: Result Comment: meta bolite(s) may indicate diluted or adulterated urine, limitations of testing or timing of collection. Testing for legal purposes should be confirmed by another method. To request confirmation of test result, please call the lab within 7 days of sample submission. Performed By: #### C DP, PT, TROPI, CMPX #### [facility] [address] [place], [place] [id number] Protective Service Specialist: Sanju Eli MD Methadone Ql (U) Negative Normal NEG [facility] Comment on above: Result Comment: (Positive cutoff 300 ng/mL) Performed By: #### C DP, PT, TROPI, CMPX #### [facility] [address] [place] [address] Protective Service Specialist: Sanju Eli MD Opiate(s), Ur Negative Normal NEG [facility] Comment on above: Result Comment: (Positive cutoff 300 ng/mL) Performed By: #### C DP, PT, TROPI, CMPX #### [facility] [address] [place] [address] Protective Service Specialist: Sanju Eli MD Oxycodone, Urine Negative Normal NEG [facility] Comment on above: Result Comment: (Positive cutoff 100 ng/mL) Performed By: #### C DP, PT, TROPI, CMPX #### [place] [address] Protective Service Specialist: Sanju Eli MD Phencyclidine, Ur Negative Normal NEG [facility] Comment on above: Result Comment: (Positive cutoff 25 ng/mL) Performed By: #### C DP, PT, TROPI, CMPX #### [facility] [address] [place] [address] Protective Service Specialist: Sanju Eli MD Buprenorphrine, Ur NOT REPORTED Normal NEG [facility] Comment on above: Performed By: #### C DP, PT, TROPI, CMPX #### [facility] [address] [place] [address] Protective Service Specialist: Sanju Eli MD MDMA, Urine NOT REPORTED Normal NEG [facility] Comment on above: Performed By: #### C DP, PT, TROPI, CMPX #### [facility] [address] [place] [address] Protective Service Specialist: Sanju Eli MD Methamphetamine, Ur NOT REPORTED Normal NEG [facility] Comment on above: Performed By: #### C DP, PT, TROPI, CMPX #### [facility] [address] [place] [address] Protective Service Specialist: Sanju Eli MD Propoxyphene,Urine NOT REPORTED Normal NEG [facility] Comment on above: Performed By: #### C DP, PT, TROPI, CMPX #### [facility] [address] [place] [address] Protective Service Specialist: Sanju Eli MD Tricyclic antidepressants Screen Ql (U) NOT REPORTED Normal NEG [facility] Comment on above: Performed By: #### C DP, PT, TROPI, CMPX #### [facility] [address] [place] [address] Protective Service Specialist: Sanju Eli MD Lipid Profileon 12-04-2018 Cholesterol [Mass/Vol] 126 mg/dL Normal <200 [facility] Comment on above: Result Comment: Cholesterol Guidelines: <200 Desirable 200-240 Borderline >240 Undesirable Performed By: #### C BC, LIPR, BMP, GLYHGB #### [facility] [address] [place] [address] Protective Service Specialist: Sanju Eli MD Cholesterol in HDL [Mass/Vol] 57 mg/dL Normal >40 [facility] Comment on above: Result Comment: HDL Guidelines: <40 Undesirable 40-59 Borderline >59 Desirable Performed By: #### C BC, LIPR, BMP, GLYHGB #### [facility] [address] [place] [address]83 Protective Service Specialist: Sanju Eli MD Cholesterol in LDL [Mass/Vol] 58 mg/dL Normal 0-130 [facility] Comment on above: Result Comment: LDL Guidelines: <100 Desirable 100-129 Near to/above Desirable 130-159 Borderline >159 Undesirable Direct (measured) LDL and calculated LDL are not interchangeable tests. Performed By: #### C BC, LIPR, BMP, GLYHGB #### [facility] [address] [place] [address] Protective Service Specialist: Sanju Eli MD Cholesterol.total/Choles terol in HDL [Mass ratio] 2.2 {ratio} Normal <5 [facility] Comment on above: Performed By: #### C BC, LIPR, BMP, GLYHGB #### [facility] [address] [place] [address] Protective Service Specialist: Sanju Eli MD Triglyceride [Mass/Vol] 54 mg/dL Normal <150 [facility] Comment on above: Result Comment: Triglyceride Guidelines: <150 Desirable 150-199 Borderline 200-499 High >499 Very high Based on AHA Guidelines for fasting triglyceride, March 2012. Performed By: #### C BC, LIPR, BMP, GLYHGB #### [facility] [address] [place] [address] [phone] Protective Service Specialist: Sanju Eli MD Cholesterol in VLDL [Mass/Vol] NOT REPORTED Normal 1-30 [facility] Comment on above: Performed By: #### C BC, LIPR, BMP, GLYHGB #### [facility] [address] [place] [address] [phone] Protective Service Specialist: Sanju Eli MD Troponinon 12-04-2018 Troponin I.cardiac [Mass/Vol] 6 ng/L Normal 0-22 [facility] Comment on above: Result Comment: High Sensitivity Troponin values cannot be compared with other Troponin methodologies. Patients with high levels of Biotin oral intake (i.e >5mg/day) may have falsely decreased Troponin levels. Samples collected within 8 hours of biotin intake may require additional information for diagnosis. Performed By: #### C DP, PT, TROPI, CMPX #### [address] [phone] Protective Service Specialist: Sanju Eli MD XR ABDOMEN (KUB) (SINGLE [...] Hoang MD 12/04/18 Final result Normal [facility] Basic Metabolic Profon 12-03 (cont.) Normal [facility] Comment on above: Result Comment: Aver age GFR for 30-39 years old: 107 mL/min/1.73sq m Chronic Kidney Disease: <60 mL/min/1.73sq m Kidney failure: <15 mL/min/1.73sq m eGFR calculated using average adult body mass. Additional eGFR calculator available at: http://www.[employer]/multiple_crcl_2012.htm Performed By: #### C SHIVA ZHENG, BMP #### [facility] [address] [place] [address] [place] [address] Protective Service Specialist: Alejandro Garcia MD Anion gap [Moles/Vol] 14 mmol/L Normal 9-17 [facility] Comment on above: Performed By: #### C SHIVA ZHENG BMP #### [address] [place] [address] Protective Service Specialist: Alejandro Garcia MD BUN/CRE Ratio 10 Normal 9-20 [facility] Comment on above: Performed By: #### C SHIVA ZHENG, BMP #### [facility] [address] [place] [address] [place] [address] Protective Service Specialist: Alejandro Garcia MD Calcium [Mass/Vol] 8.8 mg/dL Normal 8.6-10.4 [facility] Comment on above: Performed By: #### C SHIVA ZHENG, BMP #### [facility] [address] [place] [address] [place] [address] Protective Service Specialist: Alejandro Garcia MD Chloride [Moles/Vol] 102 mmol/L Normal 98-107 [facility] Comment on above: Performed By: #### C DP, TROPI, BMP #### [facility] [address] [place] [address] Protective Service Specialist: Alejandro Garcia MD CO2 [Moles/Vol] 23 mmol/L Normal 20-31 [facility] Comment on above: Performed By: #### C DP, TROPI, BMP #### [facility] [address] [place], [place] [phone] Protective Service Specialist: Alejandro Garcia MD Creatinine [Mass/Vol] 1.12 mg/dL Normal 0.70-1.20 [facility] Comment on above: Performed By: #### C DP, TROPI, BMP #### [facility] [address] [place], [place] [phone] Protective Service Specialist: Alejandro Garcia MD GFR, Amer >60 Normal >60 [facility] Comment on above: Performed By: #### C DP, TROPI, BMP #### [facility] [address] [place], [place] [address] Protective Service Specialist: Alejandro Garcia MD GFR,non Amer >60 Normal >60 [facility] Comment on above: Performed By: #### C DP, TROPI, BMP #### [facility] [address] [place], [place] [phone] Protective Service Specialist: Alejandro Garcia MD Glucose [Mass/Vol] 78 mg/dL Normal 70-99 [facility] Comment on above: Performed By: #### C DP, TROPI, BMP #### [facility] [address] [place] [address] Protective Service Specialist: Alejandro Garcia MD Potassium [Moles/Vol] 3.5 mmol/L Low 3.7-5.3 [facility] Comment on above: Performed By: #### C DP, TROPI, BMP #### [facility] [address] [place] [address] Protective Service Specialist: Alejandro Garcia MD Sodium [Moles/Vol] 139 mmol/L Normal 135-144 [facility] Comment on above: Performed By: #### C DP, TROPI, BMP #### [facility] [address] [place] [address] Protective Service Specialist: Aljeandro Garcia MD Staging: Normal [facility] Comment on above: Result Comment: Stag e 1: Some kidney damage normal GFR Stage 2: Mild kidney damage GFR 60-89 Stage 3: Moderate kidney damage GFR 30-59 Stage 4: Severe kidney damage GFR 15-29 Stage 5: Severe kidney damage GFR <15 ESRD - chronic treatment by dialysis or transplant Performed By: #### C DP, TROPI, BMP #### [address] [place] [address] Protective Service Specialist: Alejandro Garcia MD Urea nitrogen [Mass/Vol] 11 mg/dL Normal 6-20 [facility] Comment on above: Performed By: #### C DP, TROPI, BMP #### [facility] [address] [place] [address] Protective Service Specialist: Alejandro Garcia MD CBC with Diffon 12-03-2018 Abs. Basophil <0.03 Normal 0.00-0.20 [facility] Comment on above: Performed By: #### C DP, PT, TROPI, CMPX #### [facility] [address] [place] [address] Protective Service Specialist: Sanju Eli MD Abs.Imm.Granulocyte <0.03 Normal 0.00-0.30 [facility] Comment on above: Performed By: #### C DP, PT, TROPI, CMPX #### [facility] [address] [place] [address] Protective Service Specialist: Sanju Eli MD Abs.Neutrophil (Seg) 2.31 k/uL Normal 1.50-8.10 [facility] Comment on above: Performed By: #### C DP, PT, TROPI, CMPX #### [place] [address] Protective Service Specialist: Sanju Eli MD Basophils/100 WBC (Bld) 0 % Normal 0-2 [facility] Comment on above: Performed By: #### C DP, PT, TROPI, CMPX #### [place] [address] Protective Service Specialist: Sanju Eli MD Eosinophils (Bld) [#/Vol] 0.17 10*3/uL Normal 0.00-0.44 [facility] Comment on above: Performed By: #### C DP, PT, TROPI, CMPX #### [place] [address] Protective Service Specialist: Sanju Eli MD Eosinophils/100 WBC (Bld) 3 % Normal 1-4 [facility] Comment on above: Performed By: #### C DP, PT, TROPI, CMPX #### [place] [address] Protective Service Specialist: Sanju Eli MD Immature granulocytes (Bld) [#/Vol] 0 % Normal 0 [facility] Comment on above: Performed By: #### C DP, PT, TROPI, CMPX #### [place] [address] Protective Service Specialist: Sanju Eil MD Lymphocytes (Bld) [#/Vol] 2.02 10*3/uL Normal 1.10-3.70 [facility] Comment on above: Performed By: #### C DP, PT, TROPI, CMPX #### [address] [address] Protective Service Specialist: Sanju lEi MD Lymphocytes/100 WBC (Bld) 39 % Normal 24-43 [facility] Comment on above: Performed By: #### C DP, PT, TROPI, CMPX #### [address] [address] Protective Service Specialist: Sanju Eli MD Monocytes (Bld) [#/Vol] 0.64 10*3/uL Normal 0.10-1.20 [facility] Comment on above: Performed By: #### C DP, PT, TROPI, CMPX #### [address] [address] Protective Service Specialist: Sanju Eli MD Monocytes/100 WBC (Bld) 12 % Normal 3-12 [facility] Comment on above: Performed By: #### C DP, PT, TROPI, CMPX #### [place] [address] Protective Service Specialist: Sanju Eli MD Neutrophil (Seg) 46 % Normal 36-65 [facility] Comment on above: Performed By: #### C DP, PT, TROPI, CMPX #### [address] [address] Protective Service Specialist: Sanju Eli MD RBC morphology finding Nom (Bld) ANISOCYTOSIS PRESENT Normal [facility] Comment on above: Performed By: #### C DP, PT, TROPI, CMPX #### [address] [address] Protective Service Specialist: Sanju Eli MD Erythrocyte distribution width (RBC) [Ratio] 15.5 % High 11.8-14.4 [facility] Comment on above: Performed By: #### C DP, PT, TROPI, CMPX #### [address] [address] Protective Service Specialist: Sanju Eli MD Hematocrit (Bld) [Volume fraction] 40.2 % Low 40.7-50.3 [facility] Comment on above: Performed By: #### C DP, PT, TROPI, CMPX #### [address] [address] Protective Service Specialist: Sanju Eli MD Hemoglobin (Bld) [Mass/Vol] 12.8 g/dL Low 13.0-17.0 [facility] Comment on above: Performed By: #### C DP, PT, TROPI, CMPX #### [address] [address] Protective Service Specialist: Sanju Eli MD MCH (RBC) [Entitic mass] 29.6 pg Normal 25.2-33.5 [facility] Comment on above: Performed By: #### C DP, PT, TROPI, CMPX #### [address] [address] Protective Service Specialist: Sanju Eli MD MCHC (RBC) [Mass/Vol] 31.8 g/dL Normal 28.4-34.8 [facility] Comment on above: Performed By: #### C DP, PT, TROPI, CMPX #### [place] [address] Protective Service Specialist: Sanju Eli MD MCV (RBC) [Entitic vol] 92.8 fL Normal 82.6-102.9 [facility] Comment on above: Performed By: #### C DP, PT, TROPI, CMPX #### [address] [address] Protective Service Specialist: Sanju Eli MD NRBC Automated 0.0 per 100 WBC Normal 0.0 [facility] Comment on above: Performed By: #### C DP, PT, TROPI, CMPX #### [address] [address] Protective Service Specialist: Sanju Eli MD Platelet mean volume (Bld) [Entitic vol] 9.2 fL Normal 8.1-13.5 [facility] Comment on above: Performed By: #### C DP, PT, TROPI, CMPX #### [address] [address] Protective Service Specialist: Sanju Eli MD Platelets (Bld) [#/Vol] 208 10*3/uL Normal 138-453 [facility] Comment on above: Performed By: #### C DP, PT, TROPI, CMPX #### [address] [address] Protective Service Specialist: Sanju Eli MD RBC (Bld) [#/Vol] 4.33 10*6/uL Normal 4.21-5.77 [facility] Comment on above: Performed By: #### C DP, PT, TROPI, CMPX #### [address] [address] Protective Service Specialist: Sanju Eli MD WBC (Bld) [#/Vol] 5.2 10*3/uL Normal 3.5-11.3 [facility] Comment on above: Performed By: #### C DP, PT, TROPI, CMPX #### [address] [address] Protective Service Specialist: Sanju Eli MD Auto Diff Performed NOT REPORTED Normal [facility] Comment on above: Performed By: #### C DP, PT, TROPI, CMPX #### [address] [address] Protective Service Specialist: Sanju Eli MD Platelets (Bld) [#/Vol] NOT REPORTED Normal [facility] Comment on above: Performed By: #### C DP, PT, TROPI, CMPX #### [address] [address] Protective Service Specialist: Sanju Eli MD WBC Morphology NOT REPORTED Normal [facility] Comment on above: Performed By: #### C DP, PT, TROPI, CMPX #### [facility] [address] [place] [address] Protective Service Specialist: Sanju Eli MD Abs. Basophil <0.03 Normal 0.00-0.20 [facility] Comment on above: Performed By: #### C DP, TROPI, BMP #### [address] [place] [address] Protective Service Specialist: Alejandro Garcia MD Abs.Imm.Granulocyte <0.03 Normal 0.00-0.30 [facility] Comment on above: Performed By: #### C DP, TROPI, BMP #### [address] [place] [address] Protective Service Specialist: Alejandro Garcia MD Abs.Neutrophil (Seg) 3.26 k/uL Normal 1.50-8.10 [facility] Comment on above: Performed By: #### C DP, TROPI, BMP #### [address] [place] [address] Protective Service Specialist: Alejandro Garcia MD Basophils/100 WBC (Bld) 0 % Normal 0-2 [facility] Comment on above: Performed By: #### C DP, TROPI, BMP #### [address] [place], [place] [address] Protective Service Specialist: Alejandro Garcia MD Eosinophils (Bld) [#/Vol] 0.13 10*3/uL Normal 0.00-0.44 [facility] Comment on above: Performed By: #### C DP, TROPI, BMP #### [address] [place] [id number] Protective Service Specialist: Alejandro Garcia MD Eosinophils/100 WBC (Bld) 2 % Normal 1-4 [facility] Comment on above: Performed By: #### C DP, TROPI, BMP #### [facility] [address] [place], [id number] Protective Service Specialist: Alejandro Garcia MD Erythrocyte distribution width (RBC) [Ratio] 15.2 % High 11.8-14.4 [facility] Comment on above: Performed By: #### C MATTHEW ZHENGI, BMP #### [facility] [address] [place], [id number] Protective Service Specialist: Alejandro Garcia MD Hematocrit (Bld) [Volume fraction] 39.0 % Low 40.7-50.3 [facility] Comment on above: Performed By: #### C SHIVA ZHENG, BMP #### [facility] [address] [place] [id number] Protective Service Specialist: Alejandro Garcia MD Hemoglobin (Bld) [Mass/Vol] 12.8 g/dL Low 13.0-17.0 [facility] Comment on above: Performed By: #### C NORM [facility] #### [facility] [address] [place], [place] [address] Protective Service Specialist: Alejandro Garcia MD Immature granulocytes (Bld) [#/Vol] 0 % Normal 0 [facility] Comment on above: Performed By: #### C MATTHEW ZHENGI, BMP #### [address] [place], [id number] Protective Service Specialist: Alejandro Garcia MD Lymphocytes (Bld) [#/Vol] 1.93 10*3/uL Normal 1.10-3.70 [facility] Comment on above: Performed By: #### C MATTHEW ZHENGI, BMP #### [facility] [address] [place] [phone] Protective Service Specialist: Alejandro Garcia MD Lymphocytes/100 WBC (Bld) 33 % Normal 24-43 [facility] Comment on above: Performed By: #### C MATTHEW ZHENGI, BMP #### [facility] [address] [place] [id number] Protective Service Specialist: Alejandro Garcia MD MCH (RBC) [Entitic mass] 29.9 pg Normal 25.2-33.5 [facility] Comment on above: Performed By: #### C DP, TROPI, BMP #### [facility] [address] [place] [phone] Protective Service Specialist: Alejandro Garcia MD MCHC (RBC) [Mass/Vol] 32.8 g/dL Normal 28.4-34.8 [facility] Comment on above: Performed By: #### C DP, TROPI, BMP #### [address] [place] [address] Protective Service Specialist: Alejandro Garcia MD MCV (RBC) [Entitic vol] 91.1 fL Normal 82.6-102.9 [facility] Comment on above: Performed By: #### C DP, TROPI, BMP #### [address] [place] [id number] Protective Service Specialist: Alejandro Garcia MD Monocytes (Bld) [#/Vol] 0.57 10*3/uL Normal 0.10-1.20 [facility] Comment on above: Performed By: #### C DP, TROPI, BMP #### [address] [place], [place] [address] Protective Service Specialist: Alejandro Garcia MD Monocytes/100 WBC (Bld) 10 % Normal 3-12 [facility] Comment on above: Performed By: #### C DP, TROPI, BMP #### [facility] [address] [place], [id number] Protective Service Specialist: Alejandro Garcia MD Neutrophil (Seg) 55 % Normal 36-65 [facility] Comment on above: Performed By: #### C DP, TROPI, BMP #### [facility] [address] [place], [id number] Protective Service Specialist: Alejandro Garcia MD NRBC Automated 0.0 per 100 WBC Normal 0.0 [facility] Comment on above: Performed By: #### C SHIVA ZHENG, BMP #### [facility] [address] [place], [place] [id number] Protective Service Specialist: Alejandro Garcia MD Platelet mean volume (Bld) [Entitic vol] 9.0 fL Normal 8.1-13.5 [facility] Comment on above: Performed By: #### C DP TROPI, BMP #### [facility] [address] [place] [address] Protective Service Specialist: Alejandro Garcia MD Platelets (Bld) [#/Vol] 211 10*3/uL Normal 138-453 [facility] Comment on above: Performed By: #### C MATTHEW ZHENGI, BMP #### [facility] [address] [place], [place] [address] Protective Service Specialist: Alejandro Garcia MD RBC (Bld) [#/Vol] 4.28 10*6/uL Normal 4.21-5.77 [facility] Comment on above: Performed By: #### C SHIVA ZHENG, BMP #### [facility] [address] [place] [address] Protective Service Specialist: Alejandro Garcia MD WBC (Bld) [#/Vol] 5.9 10*3/uL Normal 3.5-11.3 [facility] Comment on above: Performed By: #### C NORM TROPI, BMP #### [facility] [address] [place] [address] Protective Service Specialist: Alejandro Garcia MD Auto Diff Performed NOT REPORTED Normal [facility] Comment on above: Performed By: #### C DP, TROPI, BMP #### [facility] [address] [place] [address] Protective Service Specialist: Alejandro Garcia MD Platelets (Bld) [#/Vol] NOT REPORTED Normal [facility] Comment on above: Performed By: #### C DP, TROPI, BMP #### [facility] [address] [place] [address] Protective Service Specialist: Alejandro Garcia MD RBC morphology finding Nom (Bld) NOT REPORTED Normal [facility] Comment on above: Performed By: #### C DP, TROPI, BMP #### [facility] [address] [place] [address] Protective Service Specialist: Alejandro Garcia MD WBC Morphology NOT REPORTED Normal [facility] Comment on above: Performed By: #### C DP, TROPI, BMP #### [facility] [address] [place] [address] Protective Service Specialist: Alejandro Garcia MD CTA HEAD W WO [...] Ruy Sears MD 12/03/18 Final result Normal [facility] CTA NECK W WO CONTRASTon CTA NECK [...] Ruy Sears MD 12/03/18 Final result Normal [facility] Comp Metabolic Pr/rfx MGon 0 12-03-2018 BUN/CRE Ratio NOT REPORTED Normal 03-04 [facility] Comment on above: Performed By: #### C DP, PT, TROPI, CMPX #### [address] [address] Protective Service Specialist: Sanju Eli MD Staging: NOT REPORTED Normal [facility] Comment on above: Performed By: #### C DP, PT, TROPI, CMPX #### [address] [address] Protective Service Specialist: Sanju Eli MD PTon 12-03-2018 INR Coag (PPP) [Relative time] 1.1 {INR} Normal [facility] Comment on above: Result Comment: Therapeutic Range: Moderate Anticoagulant Intensity: INR = 2.0-3.0 High Anticoagulant Intensity: INR = 2.5-3.5 Performed By: #### C DP, PT, TROPI, CMPX #### [address] [address] Protective Service Specialist: Sanju Eli MD PT Coag (PPP) [Time] 11.8 s Normal 9.0-12.0 [facility] Comment on above: Performed By: #### C DP, PT, TROPI, CMPX #### [address] [address] Protective Service Specialist: Sanju Eli MD Tox Scr, Bld, EDon 9 Toxic Tricyclic Sc,Bl Negative Normal NEG [facility] Comment on above: Performed By: #### E DTOX #### [address] [address] Protective Service Specialist: Sanju Eli MD [facility] [address] [place] [address] [place] [address] Protective Service Specialist: Alejandro Garcia MD Ethanol [Mass/Vol] 49 mg/dL High <10 [facility] Comment on above: Performed By: #### E DTOX #### [place] [id number] [place] [address] Protective Service Specialist: Sanju Eli MD [facility] [address] [place], [place] [phone] Protective Service Specialist: Alejandro Garcia MD Ethanol percent 0.049 % High <0.010 [facility] Comment on above: Performed By: #### E DTOX #### [address] [address] Protective Service Specialist: Sanju Eli MD [facility] [address] [place] [id number] Protective Service Specialist: Alejandro Garcia MD Acetaminophen [Mass/Vol] <5 Low 10-30 [facility] Comment on above: Performed By: #### E DTOX #### [address] [address] Protective Service Specialist: Sanju Eli MD [facility] [address] [place] [address] [place] [address] Protective Service Specialist: Alejandro Garcia MD Salicylate <1 Low 3-10 [facility] Comment on above: Performed By: #### E DTOX #### [address] [address] Protective Service Specialist: Sanju Eli MD [facility] [address] [place] [phone] Protective Service Specialist: Alejandro Garcia MD Troponinon 12-03-2018 Troponin I.cardiac [Mass/Vol] NOT REPORTED Normal [facility] Comment on above: Performed By: #### C DP, PT, TROPI, CMPX #### [place] [id number] [place] [address] Protective Service Specialist: Sanju Eli MD Troponin I.cardiac [Mass/Vol] ng/mL Normal <0.03 [facility] Comment on above: Result Comment: Trop onin T results cannot be compared to Troponin-I results. Performed By: #### C DP, TROPI, BMP #### [facility] [address] [place] [address] Protective Service Specialist: Alejandro Garcia MD Troponin I.cardiac [Mass/Vol] Normal [facility] Comment on above: Result Comment: Refe rence [...] By: #### C DP, TROPI, BMP #### [facility] [address] [place] [address] Protective Service Specialist: Alejandro Garcia MD Troponin I.cardiac [Mass/Vol] NOT REPORTED Normal 0-22 [facility] Comment on above: Performed By: #### C DP TROPI, BMP #### [facility] [address] [place] [address] Protective Service Specialist: Alejandro Garcia MD XR CHEST PORTABLEon 12-04-19 [...] Mcclain MD 12/03/18 Final result Normal [facility] XR CHEST PORTABLE EXAMINATION: ONE XRAY [...] Ovidio Lyn MD 12/03/18 Final result Normal [facility] Vital Signs Date Time Vital Sign Value Performing Clinician Facility 01-30-2025 10:51-0400 Body height 180.3 cm Jenniferoneyda Bender HANDS ASSEMBLER-RN PERIOPERATIVE Work Phone: [facility] 01-30-2025 10:51-0400 Diastolic blood pressure 80 mm[Hg] Jennifer Bender HANDS ASSEMBLER-RN PERIOPERATIVE Work Phone: [facility] 01-30-2025 10:51-0400 Heart rate 87 /min Jennifer Bender HANDS ASSEMBLER-RN PERIOPERATIVE Work Phone: [facility] 01-30-2025 10:51-0400 Systolic blood pressure 139 mm[Hg] Jenniferoneyda Bender HANDS ASSEMBLER-RN PERIOPERATIVE Work Phone: [facility] 01-19-2025 11:02-0400 Body height 180.3 cm Valdemar Garcia MD Work Phone: [facility] 01-19-2025 11:02-0400 Body mass index (BMI) [Ratio] 31.7 kg/m2 Valdemar Garcia MD Work Phone: [facility] 01-19-2025 11:02-0400 Body temperature 97.7 [degF] Valdemar Garcia MD Work Phone: [facility] [facility] 01-19-2025 11:02-0400 Body weight 103.06 kg Valdemar Garcia MD Work Phone: [facility] 01-19-2025 11:02-0400 Diastolic blood pressure 90 mm[Hg] Valdemar Garcia MD Work Phone: [facility] 01-19-2025 11:02-0400 Heart rate 75 /min Valdemar Garcia MD Work Phone: [facility] 01-19-2025 11:02-0400 Respiratory rate 18 /min Valdemar Garcia MD Work Phone: [facility] 01-19-2025 11:02-0400 SaO2% (BldA) [Mass fraction] 97 % Valdemar Garcia MD Work Phone: [facility] 01-19-2025 11:02-0400 Systolic blood pressure 150 mm[Hg] Valdemar Garcia MD Work Phone: [facility] 01-10-2025 10:58-0400 Body height 185.4 cm Scot Pang MD Work Phone: [facility] 01-10-2025 10:58-0400 Body mass index (BMI) [Ratio] 29.87 kg/m2 Scot Pang MD Work Phone: [facility] 01-10-2025 10:58-0400 Body weight 102.69 kg Scot Pang MD Work Phone: [facility] 12-15-2024 12:34-0400 Body height 185.4 cm Valdemar Garcia MD Work Phone: [facility] 12-15-2024 12:34-0400 Body mass index (BMI) [Ratio] 29.19 kg/m2 Valdemar Garcia MD Work Phone: [facility] 12-15-2024 12:34-0400 Body temperature 97.9 [degF] Valdemar Garcia MD [facility]: [facility] 12-15-2024 12:34-0400 Body weight 100.34 kg Valdemar Garcia MD Work Phone: [facility] 12-15-2024 12:34-0400 Diastolic blood pressure 74 mm[Hg] Valdemar Garcia MD Work Phone: [facility] 12-15-2024 12:34-0400 Heart rate 95 /min Valdemar Garcia MD Work Phone: [facility] 12-15-2024 12:34-0400 Respiratory rate 16 /min Valdemar Garcia MD Work Phone: [facility] 12-15-2024 12:34-0400 SaO2% (BldA) [Mass fraction] 97 % Valdemar Garcia MD Work Phone: [facility] [employer] 12-15-2024 12:34-0400 Systolic blood pressure 143 mm[Hg] Valdemar Garcia MD Work Phone: [facility] 11-11-2024 08:43-0400 Body height 185.4 cm Valdemar Garcia MD Work Phone: [facility] 11-11-2024 08:43-0400 Body mass index (BMI) [Ratio] 27.9 kg/m2 Valdemar Garcia MD Work Phone: [facility] 11-11-2024 08:43-0400 Body temperature 97.5 [degF] Valdemar Garcia MD Work Phone: [facility] 11-11-2024 08:43-0400 Body weight 95.89 kg Valdemar Garcia MD Work Phone: [facility] 11-11-2024 08:43-0400 Diastolic blood pressure 72 mm[Hg] Valdemar Garcia MD Work Phone: [facility] [employer] [facility] 11-11-2024 08:43-0400 Heart rate 98 /min Valdemar Garcia MD Work Phone: [facility] 11-11-2024 08:43-0400 Respiratory rate 16 /min Valdemar Garcia MD Work Phone: [facility] 11-11-2024 08:43-0400 SaO2% (BldA) [Mass fraction] 97 % Valdemar Garcia MD Work Phone: [facility] 11-11-2024 08:43-0400 Systolic blood pressure 130 mm[Hg] Valdemar Garcia MD Work Phone: [facility] 10-20-2024 15:36-0400 Body height 185.4 cm Shanthi Lu HANDS ASSEMBLER-RN PERIOPERATIVE Work Phone: [facility] 10-20-2024 15:36-0400 Body mass index (BMI) [Ratio] 27.24 kg/m2 Shanthi Lu HANDS ASSEMBLER-RN PERIOPERATIVE Work Phone: [facility] 10-20-2024 15:36-0400 Body temperature 97.9 [degF] Shanthi Lu HANDS ASSEMBLER-RN PERIOPERATIVE Work Phone: [facility] 10-20-2024 15:36-0400 Body weight 93.62 kg Shanthi Lu HANDS ASSEMBLER-RN PERIOPERATIVE Work Phone: [facility] 10-20-2024 15:36-0400 Diastolic blood pressure 60 mm[Hg] Shanthi Lu HANDS ASSEMBLER-RN PERIOPERATIVE Work Phone: [facility] 10-20-2024 15:36-0400 Heart rate 110 /min Shanthi Lu HANDS ASSEMBLER-RN PERIOPERATIVE Work Phone: [facility] 10-20-2024 15:36-0400 Respiratory rate 20 /min Shanthi Lu HANDS ASSEMBLER-RN PERIOPERATIVE Work Phone: [facility] 10-20-2024 15:36-0400 SaO2% (BldA) [Mass fraction] 97 % Shanthi Lu HANDS ASSEMBLER-RN PERIOPERATIVE Work Phone: [facility] 10-20-2024 15:36-0400 Systolic blood pressure 100 mm[Hg] Shanthi Lu APRN-RN PERIOPERATIVE Work Phone: [facility] 07-25-2024 13:05-0500 Body height 185.4 cm Shanthi Lu APRN-RN PERIOPERATIVE Work Phone: [facility] 07-25-2024 13:05-0500 Body mass index (BMI) [Ratio] 23.41 kg/m2 Shanthi Lu APRN-RN PERIOPERATIVE Work Phone: [facility] 07-25-2024 13:05-0500 Body temperature 97.9 [degF] Shanthi Lu APRN-RN PERIOPERATIVE Work Phone: [facility] 07-25-2024 13:05-0500 Body weight 80.47 kg Shanthi Lu APRN-RN PERIOPERATIVE Work Phone: [facility] 07-25-2024 13:05-0500 Diastolic blood pressure 60 mm[Hg] Shanthi Lu APRN-RN PERIOPERATIVE Work Phone: [facility] 07-25-2024 13:05-0500 Heart rate 85 /min Shanthi Lu APRN-RN PERIOPERATIVE Work Phone: [facility] 07-25-2024 13:05-0500 Respiratory rate 18 /min Shanthi Lu APRN-RN PERIOPERATIVE Work Phone: [facility] 07-25-2024 13:05-0500 SaO2% (BldA) [Mass fraction] 96 % Shanthi Lu APRN-RN PERIOPERATIVE Work Phone: [facility] 07-25-2024 13:05-0500 Systolic blood pressure 110 mm[Hg] Shanthi Lu HANDS ASSEMBLER-RN PERIOPERATIVE Work Phone: [facility] 02-01-2024 14:19-0400 Body [facility] [facility] 02-01-2024 14:19-0400 Body mass index (BMI) [Ratio] 29.99 kg/m2 [facility] [address] [place] [address] 02-01-2024 14:190400 Body temperature 98.2 [degF] [address] 02-01-2024 14:190400 Body weight 103.1 kg [facility] [address] [place] [address] 02-01-2024 14:19-0400 Diastolic blood pressure 90 mm[Hg] [facility] [address] [place] [address] 02-01-2024 14:19-0400 Heart rate 92 /min [facility] [address] [place] [address] 02-01-2024 14:190400 Respiratory rate 16 /min [facility] [address] [place] [address] 02-01-2024 14:190400 SaO2% (BldA) [Mass fraction] 96 % [address] 02-01-2024 14:19-0400 Systolic blood pressure 141 mm[Hg] [address] 01-25-2024 10:27-0400 Body height 182.9 cm Maile Burr MD Work Phone: [facility] 01-25-2024 10:27-0400 Body mass index (BMI) [Ratio] 30.98 kg/m2 Maile Burr MD Work Phone: [facility] 01-25-2024 10:27-0400 Body temperature 98.2 [degF] Maile Burr MD Work Phone: [facility] 01-25-2024 10:27-0400 Body weight 103.6 kg Maile Burr MD Work Phone: [facility] 01-25-2024 10:27-0400 Respiratory rate 18 /min Maile Burr MD Work Phone: [facility] 01-22-2024 15:14-0400 Body height 185.4 cm Simran Nelson APRN.CNP Work Phone: [facility] 01-22-2024 15:14-0400 Body mass index (BMI) [Ratio] 29.72 kg/m2 Simran Bundridge HANDS ASSEMBLER.RN PERIOPERATIVE Work Phone: [facility] 01-22-2024 15:14-0400 Body temperature 97.11 [degF] Simran Bundridge HANDS ASSEMBLER.RN PERIOPERATIVE Work Phone: [facility] 01-22-2024 15:14-0400 Body weight 102.15 kg Simran Bundridge HANDS ASSEMBLER.RN PERIOPERATIVE Work Phone: [facility] 01-22-2024 15:14-0400 Diastolic blood pressure 91 mm[Hg] Simran Bundridge HANDS ASSEMBLER.RN PERIOPERATIVE Work Phone: [facility] 01-22-2024 15:14-0400 Heart rate 99 /min Simran Bundridge HANDS ASSEMBLER.RN PERIOPERATIVE Work Phone: [facility] 01-22-2024 15:14-0400 Respiratory rate 16 /min Simran Bundridge HANDS ASSEMBLER.RN PERIOPERATIVE Work Phone: [facility] 01-22-2024 15:14-0400 SaO2% (BldA) [Mass fraction] 95 % Simran Bundridge HANDS ASSEMBLER.RN PERIOPERATIVE Work Phone: [facility] 01-22-2024 15:14-0400 Systolic blood pressure 131 mm[Hg] Simran Bundridge HANDS ASSEMBLER.RN PERIOPERATIVE Work Phone: [facility] 12-18-2023 14:19-0400 Body mass index (BMI) [Ratio] 27.96 kg/m2 Rich Hill MD Work Phone: [facility] 12-18-2023 14:19-0400 Body temperature 97.81 [degF] Rich Hill MD Work Phone: [facility] 12-18-2023 14:19-0400 Body weight 96.1 kg Rich Hill MD Work Phone: [facility] 12-18-2023 14:19-0400 Diastolic blood pressure 79 mm[Hg] Rich Hill MD Work Phone: [facility] 12-18-2023 14:19-0400 Heart rate 67 /min Rcih Hill MD Work Phone: [facility] 12-18-2023 14:19-0400 Respiratory rate 16 /min Rich Hill MD Work Phone: [facility] 12-18-2023 14:19-0400 SaO2% (BldA) [Mass fraction] 100 % Rich Hill MD Work Phone: [facility] 12-18-2023 14:19-0400 Systolic blood pressure 125 mm[Hg] Rich Hill MD Work Phone: [facility] 12-15-2023 13:51-0400 Body height 184.5 cm Shanthi Lu HANDS ASSEMBLER-RN PERIOPERATIVE Work Phone: [facility] 12-15-2023 13:51-0400 Body mass index (BMI) [Ratio] 27.98 kg/m2 Shanthi Lu HANDS ASSEMBLER-RN PERIOPERATIVE Work Phone: [facility] 12-15-2023 13:51-0400 Body temperature 98.1 [degF] Shanthi Lu HANDS ASSEMBLER-RN PERIOPERATIVE Work Phone: [facility] 12-15-2023 13:51-0400 Body weight 95.25 kg Shanthi Lu HANDS ASSEMBLER-RN PERIOPERATIVE Work Phone: [facility] 12-15-2023 13:51-0400 Diastolic blood pressure 72 mm[Hg] Shanthi Lu HANDS ASSEMBLER-RN PERIOPERATIVE Work Phone: [facility] 12-15-2023 13:51-0400 Heart rate 86 /min Shanthi Lu HANDS ASSEMBLER-RN PERIOPERATIVE Work Phone: [facility] 12-15-2023 13:51-0400 Respiratory rate 20 /min Shanthi Lu HANDS ASSEMBLER-RN PERIOPERATIVE Work Phone: [facility] 12-15-2023 13:51-0400 SaO2% (BldA) [Mass fraction] 97 % Shanthi Lu HANDS ASSEMBLER-RN PERIOPERATIVE Work Phone: [facility] 12-15-2023 13:51-0400 Systolic blood pressure 122 mm[Hg] Shanthi Lu HANDS ASSEMBLER-RN PERIOPERATIVE Work Phone: [facility] 12-09-2023 09:43-0400 Body mass index (BMI) [Ratio] 28.51 kg/m2 Tobi Plata MD Work Phone: [facility] 12-09-2023 09:43-0400 Body temperature 98.29 [degF] Tobi Plata MD Work Phone: [facility] 12-09-2023 09:43-0400 Body weight 98 kg Tobi Plata MD Work Phone: [facility] 12-09-2023 09:43-0400 Diastolic blood pressure 82 mm[Hg] Tobi Plata MD Work Phone: [facility] 12-09-2023 09:43-0400 Heart rate 84 /min Tobi Plata MD Work Phone: [facility] 12-09-2023 09:43-0400 Respiratory rate 20 /min Tobi Plata MD Work Phone: [facility] 12-09-2023 09:43-0400 SaO2% (BldA) [Mass fraction] 98 % Tobi Plata MD Work Phone: [facility] Comment on above: 12-09-2023 09:43-0400 Systolic blood pressure 131 mm[Hg] Tobi Plata MD Work Phone: [facility] 10-19-2023 14:10-0400 Diastolic blood pressure 78 mm[Hg] Shanthi Lu HANDS ASSEMBLER-RN PERIOPERATIVE Work Phone: [facility] 10-19-2023 14:10-0400 Systolic blood pressure 120 mm[Hg] Shanthi Lu HANDS ASSEMBLER-RN PERIOPERATIVE Work Phone: [facility] 10-19-2023 14:08-0400 Body height 184.5 cm Shanthi Lu APRN-RN PERIOPERATIVE Work Phone: [facility] 10-19-2023 14:08-0400 Body mass index (BMI) [Ratio] 27.92 kg/m2 Shanthi Lu HANDS ASSEMBLER-RN PERIOPERATIVE Work Phone: [facility] 10-19-2023 14:08-0400 Body temperature 97.5 [degF] Shanthi Lu APRN-RN PERIOPERATIVE Work Phone: [facility] 10-19-2023 14:08-0400 Body weight 95.03 kg Shanthi Lu APRN-HERACLIO Work Phone: [facility] 10-19-2023 14:08-0400 Heart rate 87 /min Shanthi Lu APRN-RN PERIOPERATIVE Work Phone: [facility] 10-19-2023 14:08-0400 Respiratory rate 24 /min Shanthi Lu APRN-RN PERIOPERATIVE Work Phone: [facility] 10-19-2023 14:08-0400 SaO2% (BldA) [Mass fraction] 94 % Shanthi Lu APRN-RN PERIOPERATIVE Work Phone: [facility] 08-17-2023 13:30-0500 Body height 185.4 cm Rich Hill MD Work Phone: [facility] 08-17-2023 13:30-0500 Body temperature 97.7 [degF] Rich Hill MD Work Phone: [facility] 08-17-2023 13:30-0500 Body weight 88.1 kg Rich Hill MD Work Phone: [facility] 08-17-2023 13:30-0500 Diastolic blood pressure 61 mm[Hg] Rich Hill MD Work Phone: [facility] 08-17-2023 13:30-0500 Heart rate 65 /min Rich Hill MD Work Phone: [facility] 08-17-2023 13:30-0500 Respiratory rate 16 /min Rich Hill MD Work Phone: [facility] 08-17-2023 13:30-0500 SaO2% (BldA) [Mass fraction] 100 % Rich Hill MD Work Phone: [facility] 08-17-2023 13:30-0500 Systolic blood pressure 116 mm[Hg] Rich Hill MD Work Phone: [facility] 08-11-2023 14:41-0500 Body height 185.4 cm Simran Bundridge HANDS ASSEMBLER.RN PERIOPERATIVE Work Phone: [facility] 08-11-2023 14:41-0500 Body temperature 97.9 [degF] Simran Bundridge HANDS ASSEMBLER.RN PERIOPERATIVE Work Phone: [facility] 08-11-2023 14:41-0500 Body weight 84.2 kg Simran Bundridge HANDS ASSEMBLER.RN PERIOPERATIVE Work Phone: [facility] 08-11-2023 14:41-0500 Diastolic blood pressure 71 mm[Hg] Simran Bundridge HANDS ASSEMBLER.RN PERIOPERATIVE Work Phone: [facility] 08-11-2023 14:41-0500 Heart rate 67 /min Simran Bundridge HANDS ASSEMBLER.RN PERIOPERATIVE Work Phone: [facility] 08-11-2023 14:41-0500 Respiratory rate 16 /min Simran Bundridge HANDS ASSEMBLER.RN PERIOPERATIVE Work Phone: [facility] 08-11-2023 14:41-0500 SaO2% (BldA) [Mass fraction] 100 % Simran Bundridge HANDS ASSEMBLER.RN PERIOPERATIVE Work Phone: [facility] 08-11-2023 14:41-0500 Systolic blood pressure 129 mm[Hg] Simran Bundridge HANDS ASSEMBLER.RN PERIOPERATIVE Work Phone: [facility] 07-29-2023 15:11-0500 Body height 185.4 cm Rich Hill MD Work Phone: [facility] 07-29-2023 15:11-0500 Body temperature 97 [degF] Rich Hill MD Work Phone: [facility] 07-29-2023 15:11-0500 Body weight 87.3 kg Rich Hill MD Work Phone: [facility] 07-29-2023 15:11-0500 Diastolic blood pressure 67 mm[Hg] Rich Hill MD Work Phone: [facility] 07-29-2023 15:11-0500 Heart rate 59 /min Rich Hill MD Work Phone: [facility] 07-29-2023 15:11-0500 Respiratory rate 16 /min Rich Hill MD Work Phone: [facility] 07-29-2023 15:11-0500 SaO2% (BldA) [Mass fraction] 99 % Rich Hill MD Work Phone: [facility] 07-29-2023 15:11-0500 Systolic blood pressure 125 mm[Hg] Rich Hill MD Work Phone: [facility] Encounters Encounter Date Encounter Type Care Provider Facility Start: 01-30-2025 End: 01-30-2025 Office outpatient visit 10 minutes Jennifer Bender HANDS ASSEMBLER-RN PERIOPERATIVE Work Phone: [facility] General Surgery Comment on above: Lymphadenopathy (Sherice krystal Dx) Start: 01-30-2025 End: 01-30-2025 ambulatory JENNIFER BENDER [facility] Start: 01-19-2025 End: 02-01-2025 Documentation procedure [facility] Comment on above: 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) Start: 01-19-2025 End: 01-19-2025 Office outpatient visit 25 minutes Valdemar Garcia MD Work Phone: Jovita Rand [facility] - Medical Oncology Comment on above: 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); 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); Inguinal lymphadenopathy Start: 01-19-2025 End: 01-19-2025 ambulatory VALDEMAR Lopez [facility] Start: 01-16-2025 End: 01-16-2025 Evaluation and management of inpatient [facility] Start: 01-11-2025 End: 01-11-2025 Patient encounter procedure [facility] Pre-Admission Testing 1 [facility] - Pre Admit Comment on above: Preop examination (P rimary Dx) Start: 01-11-2025 End: 01-11-2025 Preprocedural examination done Pm 1 [facility] Start: 01-11-2025 End: 01-11-2025 ambulatory DILCIA Hugo RE [facility] Start: 01-11-2025 Encounter for other preprocedural examination [facility] Start: 01-10-2025 End: 01-10-2025 Office outpatient new 30 minutes Scot Pang MD Work Phone: [facility] General Surgery Comment on above: 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); Abnormal findings on imaging test; 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) Start: 01-10-2025 End: 01-10-2025 ambulatory [facility] Start: 12-30-2024 End: 12-30-2024 Orders Only Altagracia Rand [facility] - Medical Oncology Comment on above: 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); Abnormal findings on imaging test; 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) Start: 12-22-2024 End: 12-22-2024 [facility] Start: 12-15-2024 End: 12-15-2024 Documentation procedure Che Moreno [facility] - Medical Oncology Start: 12-15-2024 End: 12-15-2024 Office outpatient visit 25 minutes Valdemar Garcia MD Work Phone: Jovita Rand [facility] - Medical Oncology Comment on above: 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) (Primary Dx); 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) Start: 12-15-2024 End: 12-15-2024 [facility] Start: 12-02-2024 End: 12-02-2024 [facility] Start: 11-25-2024 End: 11-25-2024 [facility] Start: 11-11-2024 End: 11-11-2024 Office outpatient new 60 minutes Valdemar Garcia MD Work Phone: Jovita Rand [facility] - Medical Oncology Comment on above: 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); 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) Start: 11-11-2024 End: 11-11-2024 Orders Only Altagracia Rand [facility] - Medical Oncology Comment on above: 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); 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) Start: 11-01-2024 End: 11-02-2024 Telephone encounter Lea Olsen [facility] Comment on above: Referral Start: 10-26-2024 End: 10-26-2024 Orders Only Shanthi Lu APRN-RN PERIOPERATIVE Work Phone: [facility] Internal Medicine - Family Medicine Comment on above: 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 Start: 09-26-2024 End: 09-26-2024 Telephone encounter Scanning Provider External [facility] Medical Oncology Start: 09-14-2024 End: 09-14-2024 Telephone encounter Rich Hill MD Work Phone: Hematology/Oncology Comment on above: Records faxed Start: 09-13-2024 End: 09-13-2024 Documentation procedure Bina Johnson RN [facility] Medical Oncology Start: 08-12-2024 End: 08-12-2024 ambulatory [facility] Comment on above: Toxoplasmosis; Chorioretinitis of both eyes Start: 08-12-2024 End: 08-12-2024 Office outpatient new 45 minutes Fortunato Balderrama MD Work Phone: [facility] Comment on above: 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); Toxoplasmosis; Chorioretinitis of both eyes Start: 08-12-2024 End: 08-12-2024 Ophthalmology Imaging [facility] Comment on above: Other specified reti nal disorders Start: 07-25-2024 End: 07-25-2024 Office outpatient visit 15 minutes Shanthi Lu HANDS ASSEMBLER-RN PERIOPERATIVE Work Phone: [facility] - [...] End: 02-02-2024 Evaluation and management of inpatient [facility] Start: 02-02-2024 End: 02-02-2024 [facility] Start: 02-01-2024 End: 02-01-2024 Patient encounter procedure [facility] Pat Provider 7 Christine Nino [facility] Comment on above: Pre-op testing (Prim dorota Dx) Start: 02-01-2024 End: 02-01-2024 Patient encounter status [facility] Start: 02-01-2024 End: 02-01-2024 [facility] Start: 02-01-2024 Encounter for other preprocedural examination [facility] Start: 01-27-2024 End: 01-27-2024 Telephone encounter Maile Burr MD [facility] Start: 01-25-2024 Telephone encounter Marialuisa Portillo RN [employer] Start: 01-25-2024 End: 01-25-2024 Office outpatient new 45 minutes Eugeneab Aminah DIEGO Work Phone: [facility] Comment on above: 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); Abnormal findings on imaging test; Adenotonsillar hypertrophy; Tonsillitis Start: 01-22-2024 End: 01-22-2024 ambulatory SIMRAN NELSON Facility:[facility] Start: 01-22-2024 End: 01-22-2024 Patient encounter procedure Simran Nelson HANDS ASSEMBLER.RN PERIOPERATIVE Work Phone: Palliative Medicine Comment on above: Palliative care by s pecialist (Primary Dx); Neoplasm related pain; Opioid contract exists; Osteoarthritis of spine, unspecified spinal osteoarthritis complication status, unspecified spinal region; 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 Work Phone: [facility] Comment on above: Medication Authoriza tion (Buprenorphine patches) Start: 01-21-2024 End: 01-21-2024 Telephone encounter Shanthi Lu APRN-RN PERIOPERATIVE Work Phone: [facility] Start: 01-18-2024 End: 01-26-2024 Refill Jess Askew CMA [facility] Comment on above: Chronic pain syndrom e; Chronic left hip pain Start: 01-04-2024 End: 01-04-2024 [facility] Start: 01-04-2024 End: 01-04-2024 Subsequent hospital visit by physician Arrival Time Radiology Work Phone: Radiology [facility] Comment on above: 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) [C81.08] Start: 12-31-2023 End: 12-31-2023 Telephone encounter Katja Colin RN [facility] - ENT Start: 12-21-2023 Telephone encounter Rich mccurdy MD Work Phone: [facility] Comment on above: Results Future Appointment Start: 12-18-2023 End: 12-18-2023 [facility] Start: 12-18-2023 End: 12-18-2023 Office outpatient visit 25 minutes Rich Hill MD Work Phone: Hematology/Oncology Comment on above: 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) (Primary Dx); 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HCC); Abnormal finding on imaging Start: 12-15-2023 End: 12-15-2023 Office outpatient visit 15 minutes Shanthi Lu HANDS ASSEMBLER-RN PERIOPERATIVE Work Phone: [facility] Internal Medicine - Family Medicine [...] End: 12-09-2023 ambulatory TOBI PLATA Facility:[facility] Start: 12-03-2023 Telephone encounter Cassie Greene RN Hematology/Oncology Start: 10-29-2023 End: 11-02-2023 Refill Britt Pelletier MD Work Phone: [facility] Start: 10-19-2023 End: 10-19-2023 ambulatory [facility] Start: 10-19-2023 End: 10-19-2023 Office outpatient visit 25 minutes Shanthi Lu HANDS ASSEMBLER-RN PERIOPERATIVE Work Phone: [facility] Internal Medicine - Family Medicine Comment on above: Chronic pain syndrom e (Primary Dx); Chronic left hip pain; Muscle spasm; Attention deficit hyperactivity disorder (ADHD), unspecified ADHD type Start: 10-19-2023 End: 10-20-2023 Telephone encounter Jael Dez DRY CLEANING COUNTER CLERK [facility] Start: 10-09-2023 End: 10-09-2023 Patient encounter procedure Simran Nelson HANDS ASSEMBLER.RN PERIOPERATIVE Work Phone: Palliative Medicine Comment on above: NO SHOW (Primary Dx) Start: 09-29-2023 Telephone encounter Ana Hu liative Medicine Comment on above: Initial Consult Start: 09-28-2023 Orders Only Simran dong HANDS ASSEMBLER.RN PERIOPERATIVE Work Phone: [facility] Comment on above: [...] Start: 08-11-2023 End: 08-11-2023 Refill Simran Nelson APRN.RN PERIOPERATIVE Work Phone: [facility] Comment on [...] Phone: Hematology/Oncology Start: 09-24-2021 End: 06-12-2022 ambulatory [facility] Start: 05-25-2021 End: 05-25-2021 Emergency department patient visit ESTEBAN D MARTUS [facility] Start: 05-18-2021 End: 05-22-2021 Evaluation and management of inpatient DEANNA CHINCHILLA [facility] Start: 12-03-2018 End: 12-06-2018 Evaluation and management of inpatient IQRA ADDISON [facility] Start: 12-03-2018 End: 12-03-2018 Emergency department patient visit RODRICK MARTINEZ [facility] Start: 07-13-2018 [facility] Valdemar Apple MD Work Phone: [facility] Start: 07-13-2018 ambulatory Valdemar burden MD Work Phone: [facility] [id number] Procedures Date Procedure Procedure Detail Performing Clinician Start: 12-15-2024 Follow-up visit Follow-up VALDEMAR Lopez RADHA Start: 10-20-2024 Adult depression scr eening assessment Shanthi Lu APRN-RN PERIOPERATIVE Work Phone: Start: 08-12-2024 Fluorescein angrph w/multiframe [...] Adult depression scr eening assessment Shanthi Lu APRN-RN PERIOPERATIVE Work Phone: Start: 10-19-2023 Adult depression scr eening assessment Shanthi Lu HANDS ASSEMBLER-RN PERIOPERATIVE Work Phone: Start: 08-12-[address] attenuation whole body Rich Hill MD Work Phone: Start: 08-12-2023 End: 08-12-2023 Blood count complete auto&auto difrntl wbc Rich Hill MD Work Phone: Start: 08-12-2023 HEP REMOTE PANEL BL Tatiana Hill MD Work Phone: Start: 08-12-2023 Hepatitis c antibody Vi kings Hill MD Work Phone: Start: 08-12-2023 Iaad ia hepatitis b surface antigen Rcih Hill MD Work Phone: Start: 12-06-2018 DISCHARGE PATIENT [facility] Start: 12-06-2018 Mri brain brain stem [...] EVAL AND TREAT IQRA [facility] Start: 12-04-2018 BRICK CLEANER EVAL AND TREAT DEVANTE L [facility] Start: [...] Td Vaccines (6 - Td or Tdap) [facility] Start: 01-03-2031 Urine microalbumin profile [facility] Start: 12-20-2028 Urine microalbumin profile DTAP,TDAP,TD (4 - Td or Tdap) [facility] Start: 01-03-2027 Diabetes Screening Diabetes Screening [facility] Start: 01-30-2026 Tobacco Screening Tobacco Screening [facility] Start: 01-19-2026 Adult BMI Screening Adult BMI Screening [facility] Start: 01-16-2026 Adult BMI Screening Adult BMI Screening [facility] Start: 01-16-2026 Tobacco Screening Tobacco Screening [facility] Start: 01-11-2026 Tobacco Screening Tobacco Screening [facility] Start: 01-10-2026 Adult BMI Screening Adult BMI Screening [facility] Start: 12-15-2025 Adult BMI Screening Adult BMI Screening [facility] Start: 12-15-2025 Tobacco Screening Tobacco Screening [facility] Start: 11-11-2025 Adult BMI Screening Adult BMI Screening [facility] Start: 11-11-2025 Tobacco Screening Tobacco Screening [facility] Start: 10-20-2025 Adult BMI Follow Up Plan Adult BMI Follow Up Plan [facility] Start: 10-20-2025 Adult BMI Screening Adult BMI Screening [facility] Start: 10-20-2025 Depression Screening Depression Screening [facility] Start: 10-20-2025 Tobacco Screening Tobacco Screening [facility] Start: 08-12-2025 Tobacco Screening Tobacco Screening [facility] Start: 07-25-2025 Adult BMI Follow Up Plan Adult BMI Follow Up Plan [facility] Start: 07-25-2025 Adult BMI Screening Adult BMI Screening [facility] Start: 07-25-2025 Tobacco Screening Tobacco Screening [facility] Start: 03-27-2025 End: 03-27-2025 Patient encounter procedure 03/27/2025 11:00 AM EDT Office Visit [facility] Internal Medicine - Family Medicine [address] [place] [address] Miah Zamarripa, HANDS ASSEMBLER-RN PERIOPERATIVE [address], [address] [address] [facility] Internal Medicine - Family Medicine Start: 02-13-2025 Influenza vaccination Influenza Vaccine [facility] Start: 02-07-2025 End: 02-07-2025 Patient encounter procedure 02/07/2025 12:00 PM EDT Office Visit [facility] [address] [place] [phone] Cameron Sroia, MERLINE [address] [place], [place] [id number] [facility] Start: 02-01-2025 Adult BMI Screening Adult BMI Screening [facility] Start: 02-01-2025 Tobacco Screening Tobacco Screening [facility] Start: 01-30-2025 End: 01-30-2025 Patient encounter procedure 01/30/2025 11:00 AM EDT Office Visit [facility] General Surgery [address] [place] [phone] Jennifer Bender, HANDS ASSEMBLER-[facility] [address] [place], [place] [id number] [facility] General Surgery Start: 01-25-2025 Tobacco Screening Tobacco Screening [facility] Start: 01-24-2025 Adult BMI Screening Adult BMI Screening [facility] Start: 01-19-2025 End: 01-19-2025 Patient encounter procedure 01/19/2025 11:15 AM EDT Office Visit Jovita L [facility] - Medical Oncology [address] [place] [id number] Valdemar Garcia MD [address] [place], [place] [id number] [facility] On[facility] Start: 01-16-2025 End: 01-16-2025 Admission to same day surgery center 01/16/2025 12:15 PM EDT - 01/16/2025 1:15 PM EDT Surgery [facility] - Surgery [address] [facility] [phone] Scot Pang MD [address] [place] [phone] BIOPSY LYMPH NODE INGUINAL [54401 (CPT )] [facility] Comment on above: BIOPSY LYMPH NODE INGUINAL [64346 (CPT ) ] Start: 01-16-2025 End: 01-16-2025 Bx/exc lymph node open superficial BIOPSY LYMPH NODE INGUINAL right groin lymph node lymphocyte 01/16/2025 12:15 PM EDT [facility] Start: 01-16-2025 Subsequent hospital visit by physician 01/16/2025 12:15 PM EDT Hospital Encounter [facility] Surgery [address] [place] [address] Scot Pang MD [address] [place] [address] [facility] Start: 01-11-2025 End: 01-11-2025 Patient encounter procedure 01/11/2025 12:45 PM EDT Procedure visit [facility] - Pre Admit [address] [place] [address] [facility] Admit Start: 12-15-2024 End: 12-15-2025 Guidance for biopsy of Lymph node IR biopsy lymph node Imaging Routine 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) Abnormal findings on imaging test Expected: 12/15/2024, Expires: 12/15/2025 [facility] Work Phone: Comment on above: Expected: 12/15/2024, Expires: Start: 12-15-2024 End: 12-15-2024 Patient encounter procedure 12/15/2024 12:45 PM EDT Office Visit [facility] - Medical Oncology [address] [place] [phone] Valdemar Garcia MD [address] [place] [address] [address] [place] [address] [facility] - Medical Oncology Start: 12-14-2024 Adult BMI Follow Up Plan Adult BMI Follow Up Plan [facility] Start: 12-14-2024 Adult BMI Screening Adult BMI Screening [facility] Start: 12-14-2024 Depression Screening Depression Screening [facility] Start: 12-14-2024 Tobacco Screening Tobacco Screening [facility] Start: 11-25-2024 End: 11-25-2024 Patient encounter procedure 11/25/2024 9:30 AM EDT Appointment [facility] - Pet Imaging [address] [place] [address] [facility] Start: 11-11-2024 End: 11-11-2025 PT Skull base to mid-thigh PET CT skull to thigh Imaging Routine 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) Expected: 11/11/2024, Expires: 11/11/2025 [facility] Comment on above: Expected: 11/11/2024, Expires: Start: 11-11-2024 End: 11-11-2024 Patient encounter procedure 11/11/2024 8:45 AM EDT Office Visit [facility] - Medical Oncology [address] [place] [address] Valdemar Garcia MD [address] [place] [address] [address] [place] [address] [facility] - Medical Oncology Start: 10-18-2024 Adult BMI Follow Up Plan Adult BMI Follow Up Plan [facility] Start: 10-18-2024 Adult BMI Screening Adult BMI Screening [facility] Start: 10-18-2024 Depression Screening Depression Screening [facility] Start: 10-18-2024 Tobacco Screening Tobacco Screening [facility] Start: 09-23-2024 End: 09-23-2024 Patient encounter procedure 09/23/2024 1:00 PM EDT Office Visit [facility] Oncology [address] [facility] [address] [place] [phone] Samuel Valadez MD [address] [place] [address], [address] [place] [address] [facility] Medical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 01/22/2024 by Simran Nelson, DIKE SUPERVISOR, HANDS ASSEMBLER.RN PERIOPERATIVE Assessment AND Plan (Z51.5) Palliative care by specialist (primary encounter diagnosis) - Introduced philosophy of palliative medicine - Discussed services offered by [facility] - Provided support - Discussed goals of care and how they align with current plan of care - Discussed / described code status and implications while in the ho (more content not included)... [facility] 01-21-2024 Miscellaneous Notes ----- Message from JUVE Marin sent at 01/21/2024 8:50 AM EDT ----- Patient will need an appointment to discuss abnormal results from [facility] How soon you want him in? Scheduling into February February is fine No VM documented in this encounter [facility] 01-21-2024 Telephone encounter Note ----- Message from JUVE Marin sent at 01/21/2024 8:50 AM EDT ----- Patient will need an appointment to discuss abnormal [facility] from [facility] 01-21-2024 Telephone encounter Note How soon you want him in? Scheduling into February [facility] 01-21-2024 Telephone encounter Note February is fine [facility] 01-21-2024 Telephone encounter Note No VM [facility] 01-18-2024 Telephone encounter Note Called ENT spoke with Dominga. Patient is scheduled to see Dr Burr on 01/24. Cara Meehan [facility] 01-18-2024 Miscellaneous Notes Called ENT spoke with Dominga. Patient is scheduled to see Dr Burr on 01/24. Cara Meehan Spoke with pt. He reports he called and is awaiting a call back to get scheduled. Encouraged to call them back if he does not hear back by Thursday, to check status of appt. Carola Nicolas, RN Called [facility] ENT office spoke with Cassie. She states they have received this referral and their office has been extremely busy and asked if we could call patient and ask him to call their office. I tried to call patient but unable to reach and unable to leave message mail box not set up. Cara Meehan Records faxed to [facility] ENT. Sangeeta: Information ready for you. Cara Meehan Please [facility] [place] [facility] The office phone number is [phone]. Address [address] in [place]. Sangeeta, Please fax records Sylvester, Please follow up on this appt. Thank you documented in this encounter [facility] 01-13-2024 Telephone encounter Note Report faxed. Images being pushed to [facility]. [facility] 01-13-2024 Miscellaneous Notes Report faxed. Images [...] with pt. He is seeing ENT, in [place]: 02/04/24 @ 130 Address: [address] [place] Call placed to [phone], Pt seeing Dr Burr ENT phone # provided [phone]. Will call after 1 pm to inform [...] 01-04-24. Thank you documented in this encounter [facility] 01-13-2024 Telephone encounter Note Spoke with [...] already scheduled for f/u with you 02/19/24) [facility] 01-13-2024 Telephone encounter Note Called and discussed with pt. He is seeing ENT, in [place]: 02/04/24 @ 130 Address: [facility] [place] Call placed to [phone], Pt seeing DANIA Velez phone # provided [phone]. Will call after [address] Islas's recommendations. Sangeeta: please forward PET/CT to Dr Aminah Nicolas RN [facility] 01-13-2024 Telephone encounter Note So he still hasn't seen ENT as far as I know - I'd like the ENT doc to review PET/CT because he's got uptake in adenoids. Low grade uptake in inguinal LN's Neck (with ENT ) will need tissue sampling. T [facility] Work Phone: 01-12-2024 Telephone encounter Note Nhung: please review PET resulted today and advise Carola Nicolas RN [facility] 01-04-2024 History of Present illness Narrative [...] 1205 PATIENT DISCHARGED TO: Ambulatory patient, left [place] department area. A Diagnostic radioactive procedure has taken place, with no further precautions necessary other than routine body substance precautions. More information regarding radiation safety can be found using this link: [email or web address] [email or web address]%20Nucl ear%20Medicine%20Procedures.[email or web address] SIGNATURE: RT Diana(Paula) PATIENT NAME: Joselyn Carnes DATE: January 04, 2024 TIME: 12:38 PM PAGER/CONTACT #: documented in this encounter [facility] 01-04-2024 Note HNO ID: [id number] Author: MARCIA ZUNIGA RN Service: ? Author [...] DATE: January 04, 2024 TIME: 12:06 PM [facility] 01-04-2024 Note HNO ID: [id number] Author: LIZZIE JIMENEZ RT(R) Service: ? Author [...] 1205 PATIENT DISCHARGED TO: Ambulatory patient, left [place] department area. A Diagnostic radioactive procedure has taken place, with no further precautions necessary other than routine body substance precautions. More information regarding radiation safety can be found using this link: [email or web address] [email or web address]-% 20Diagnostic%20Nuclear%20Medicine %20Procedures.pdf SIGNATURE: Lizzie Jimenez RT(R) PATIENT NAME: Joselyn Carnes DATE: January 04, 2024 TIME: 12:38 PM PAGER/CONTACT #: [facility] 12-31-2023 Telephone encounter Note Spoke with pt. He reports he called and is awaiting a call back to get scheduled. Encouraged to call them back if he does not hear back by Thursday, to check status of appt. Carola Nicolas RN [facility] 12-31-2023 Telephone encounter Note Called [facility] ENT office spoke with Cassie. She states they have received this referral and their office has been extremely busy and asked if we could call patient and ask him to call their office. I tried to call patient but unable to reach and unable to leave message mail box not set up. Cara Meehan [facility] 12-31-2023 Miscellaneous Notes ----- Message from Almaz sent at 12/31/2023 8:49 AM EDT ----- Tried calling to schedule. Pt voicemail is not set up ----- Message ----- From: Katja Colin RN Sent: 12/31/2023 8:40 AM EDT To: [facility] Ent Scheduling Team Please schedule with first [...] okay. Thank you!!! documented in this encounter [facility] 12-31-2023 Telephone encounter Note ----- Message from Almaz sent at 12/31/2023 8:49 AM EDT ----- Tried calling to schedule. Pt voicemail is not set up ----- Message ----- From: Katja Colin RN Sent: 12/31/2023 8:40 AM EDT To: [facility] Ent Scheduling Team Please schedule with first [...] the general rotation is okay. Thank you!!! [facility] 12-21-2023 Telephone encounter Note Records faxed to [facility] ENT. [facility] 12-21-2023 Telephone encounter Note Sangeeta: Information ready for you. Cara Meehan [facility] 12-21-2023 Telephone encounter Note Please refer to ENT in [place] / [facility]. The office phone number is [phone]. Address [address] in [place]. Sangeeta, Please fax records Sylvester, Please follow up on this appt. Thank you [facility] 12-21-[address] Islas is requesting triage to call results of Pet scan and lab to be done on 01-04-24. Thank you [facility] 12-18-2023 Instructions Rich Hill MD - 12/18/2023 2:51 PM EDT PET/CT with labs Triage to call results Referral to ENT Referral back to palliative med RTC after ENT consultation and workup documented in this encounter [facility] 12-18-2023 History of Present illness Narrative Images from the original note were not included. NAME: Joselyn Carnes CLINIC NO.: [id number] DATE OF SERVICE: December 18, 2023 (Sandy) [...] which included preparing to see the patient, [id number] patient care, completing clinical documentation, obtaining and/or reviewing separately obtained history, performing a medically appropriate examination, counseling and educating the patient/family/caregiver, ordering medications, tests, or procedures, independently interpreting results (not separately reported), communicating results to the patient/family/caregiver, and care coordination (not separately reported). Rich Hill MD, CPE Hematology [facility] Oncology Services Provided at: [place], [place] Scribe Attestation: This note was scribed [...] provider on file. documented in this encounter [facility] 12-18-2023 Note HNO ID: [id number] Author: RICH HILL MD Service: ? Author Type: Physician Type: Progress Notes Filed: 12/20/2023 18:23 Note Text: NAME: CarnesJoselyn delaney [facility] NO.: [id number] DATE OF SERVICE: December 18, 2023 (Abmatthew) [...] T12-L3 spine 07/2015- (more content not included)... [facility] 12-15-2023 History of Present illness Narrative Images from the original note were not included[place] [id number] SUBJECTIVE: Patient ID: Joselyn Carnes is a [...] Date Blood clot in vein 2020 Cancer ([facility]) Lymphoma ([facility]) hodgkins Immunization History Administered Date(s) Administered COVID-19, [...] Cruz 12/16/23 1256 documented in this encounter [facility] 12-15-2023 Instructions JUVE Cruz - 12/15/2023 1:40 PM EDT Are You Ready To Kick The Habit? Free Tobacco Cessation Resources [facility] Tobacco Treatment Center Services [facility] Tobacco Treatment Centers provide all employees with free tobacco cessation services that include: Counseling to understand nicotine addiction Education about medications that can help you successfully quit Assistance with developing a plan to quit Call to set up an individual appointment or find out when group classes will be held: [facility]: [phone] [facility]: [phone] [facility]: [phone] [facility]: [phone] Quit Smoking Action Plan and Resources [facility] offers an eight-week, online smoking cessation plan to all [facility] employees, regardless of whether [employer] is your medical insurance provider. Go to www.TrustHopmedica.org/employeewelln ess and click the Health Risk Assessment and Resources link to get started. In the ARKeX menu, click Action Plans instead of Health Risk Assessment to access the Quit Smoking Action Plan. Additional smoking cessation resources are also available to all [facility] employees on the Pkrdy3Ktydsf web page at www.[employer] [place]/quits paddy. [place] Tobacco Cessation Program If [employer] is your medical insurance provider, there are more free resources available to you, including: No copays or deductibles on local tobacco cessation counseling services to help you quit Prescription assistance for tobacco cessation medications to help you quit For details about the tobacco cessation program available to [employer] members, go to www.PASSNFLY.FlyClip (Search: Tobacco Cessation Program). [place] Tobacco Quit Line 0-297-SLQL-NOW ( ) is a toll-free, telephonic service that helps [place] residents quit smoking and using tobacco. It is staffed by experts who tailor a quit plan for you and provide you with advice. [place] Tobacco Quit Line 6-482-PNWS-NOW ( ) is a toll-free, telephonic service that helps [place] residents quit smoking and using tobacco. It is staffed by experts who tailor a quit plan for you and provide you with advice. Two weeks of nicotine replacement therapy may be provided at no charge, if needed. Additional Resources These national organizations also offer free information and resources to help you quit tobacco: [place] [employer]--www.cancer.org/healthy/s tayawayfromtobacco [place] [employer]--www.heart.org (Search: Quit Smoking) Centers for Disease Control and Prevention--www.cdc.gov/tobacco [place] [employer]--www.lungusa.org The following attachments cannot be sent through Care Everywhere.Chronic pain (Sudanese)documented in this encounter [facility] 12-09-2023 Note HNO ID: [id number] Author: GERALD SAPP RN Service: ? Author Type: Registered Nurse Type: Progress Notes Filed: 12/09/2023 14:47 Note Text: Palliative Medicine Care Coordination NEW PATIENT NOTE Patient identified by name and date of . 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 Office contact sheet provided [...] treatment at a residential rehab facility in [facility], but not currently seeing a psychiatry provider as psychiatry services not offered at treatment facility. Encouraged pt to call office with any questions or any need for assistance. All questions/concerns addressed: Yes Gerald Sapp RN [facility] 12-09-2023 History of Present illness Narrative Palliative Medicine Care Coordination NEW PATIENT NOTE Patient identified by name and date of . 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 Office contact sheet provided [...] treatment at a residential rehab facility in [facility], but not currently seeing a psychiatry provider as psychiatry services not offered at treatment facility. Encouraged pt to call office with any questions or any need for assistance. All questions/concerns addressed: Yes Gerald Sapp RN documented in this encounter [facility] 12-09-2023 Note HNO ID: [id number] Author: LIONEL MALONE LSW Service: ? Author Type: Broomcorn Sorter Type: Progress Notes Filed: 12/09/2023 14:25 Note [...] history of Hodgkin's and was treated at [facility] in the past. However, he has an appointment at [facility] with Dr. Chun on December 18, 2023. [...] community resources. Message left with the center [phone] asking for a return call. Message sent to the psych social worker at [facility] asking that she f/u as able. Message left with care team, Shanthi Lu [phone] of [facility]. . Patient was discharged after his clinic appointment. No admission was determined needed at this time. Provided contact information and will f/u appropriately. PAMELA Daley [facility] 12-09-2023 History of Present illness Narrative SOCIAL [...] history of Hodgkin's and was treated at [facility] in the past. However, he has an appointment at [facility] with Dr. Chun on December 18, 2023. [...] community resources. Message left with the center [phone] asking for a return call. Message sent to the psych social worker at [place] asking that she f/u as able. Message left with care team, Shanthi Lu [phone] of [facility]. . Patient was discharged after his clinic appointment. No admission was determined needed at this time. Provided contact information and will f/u appropriately. PAMELA Daley documented in this encounter [facility] 12-09-2023 Note HNO ID: [id number] Author: TOBI PLATA MD Service: ? Author Type: Physician Type: Progress Notes Filed: 12/09/2023 12:03 Note Text: [facility] Division of Psycho-Oncology Psychiatry Outpatient Visit- New Patient Encounter In-Person Visit Joselyn aCrnes 1980 [id number] Visit date: 12/09/2023 . Visit # 1 [...] who is referred to psycho-oncology service at [facility] by [facility] for Auditory Hallucinations, ADHD. Patient presented to [facility] psychiatry with concerns for auditory hallucination [...] since he started living at residential place [place] He denies depressed mood, anxiety or current [...] options in the community. Patient met lymphoma psych social worker Yair at the end of today's visit who will provide resources for community psychiatry. -Positive reinforcement on staying abstinent from cocaine and marijuana -Letter provided by RN to prove today's visit -I personally called [facility] at [place] at [phone]. Automated voice message told me the facility is closed on Thursday. I did not get to speak with anyone and left and a voice message -Follow-up as needed. Of note this is not a proper referral to [facility] psychiatry as patient is not in active cancer treatment. 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 While every effort was [...] about what those (more content not included)... [facility] 12-09-2023 History of Present illness Narrative Images from the original note were not included. [facility] Division of Psycho-Oncology Psychiatry Outpatient Visit- New Patient Encounter In-Person Visit Joselyn Carnes 1980 [id number] Visit date: 12/09/2023 . Visit # 1 [...] who is referred to psycho-oncology service at [facility] by [facility] for Auditory Hallucinations, ADHD. Patient presented to [facility] psychiatry with concerns for auditory hallucination [...] since he started living at residential place [place] He denies depressed mood, anxiety or current [...] options in the community. Patient met lymphoma psych social worker Yair at the end of today's visit who will provide resources for community psychiatry. -Positive reinforcement on staying abstinent from cocaine and marijuana -Letter provided by RN to prove today's visit -I personally called [facility] [place] at [phone]. Automated voice message told me the facility is closed on Thursday. I did not get to speak with anyone and left and a voice message -Follow-up as needed. Of note this is not a proper referral to [facility] psychiatry as patient is not in active cancer treatment. 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 While every effort was [...] the hospitalization. Patient reports he goes to [facility] for susbance use (cocaine) for the past 2 months. The rehab is located in [place], [place]. He reports there is no psychiatrist [...] provide a letter proving his visit at [facility] to his residential treatment center. UDS 10/19/23 [...] for visit today: 08/17/23 oncology, 10/09/23 Pall [facility], ER note on 05/24/2021 MEDICAL/ONCOLOGIC/SURGICAL HISTORY: PAST [...] and cancer. experience: denies Legal: been to senior care twice. For receiving stolen property and violating MANAGER TRADE. Caodaism/Spirituality: denies FAMILY HISTORY: Sister has schizophrenia bipolar [...] Tobi Plata MD documented in this encounter [facility] 12-07-2023 Telephone encounter Note I spoke with the Patient and have him scheduled to see Dr. Islas on 12/18/23 at 230 pm. ABRAN Watson [facility] 12-07-2023 Miscellaneous Notes I spoke with [...] Cassie Greene RN documented in this encounter [facility] 12-07-2023 Telephone encounter Note I called the Patient to give him, his appt date and time of: 12/10 1045 am : Dr. Islas But unfortunantly, he did not answer and does not have a voicemail set up. I will try calling the Patient again in a few hours. ABRAN Watson [facility] 12-04-2023 Telephone encounter Note Sent the information to Dilan Ball, then I will call the Patient to schedule. ABRAN Watson [facility] 12-03-2023 Telephone encounter Note Pt called [...] call and schedule. Thanks Cassie Greene RN [facility] 10-19-2023 Miscellaneous Notes [facility] pharmacy called they needed you to verify the refill amount is it 1 or 2 refills ? That id for the gabapentin This was addressed documented in this encounter [facility] 10-19-2023 Telephone encounter Note [facility] pharmacy called they needed you to verify the refill amount is it 1 or 2 refills ? [facility] 10-19-2023 Telephone encounter Note That id for the gabapentin [facility] 10-19-2023 Telephone encounter Note This was addressed [facility] 10-19-2023 History of Present illness Narrative Images from the original note were not included. [address] [place] [address] SUBJECTIVE: Patient ID: Joselyn Carnes is [...] x2 Past Medical History: Diagnosis Date Cancer ([facility] Lymphoma ([facility]) hodgkins Immunization History Administered Date(s) Administered COVID-19, [...] type - Ambulatory referral to Behavioral Health (Non-[facility]); Future Reorder gabapentin and lidocaine patches as [...] Cruz 10/19/23 1449 documented in this encounter [facility] 10-19-2023 Instructions JUVE Cruz - 10/19/2023 2:00 PM EDT Are You Ready To Kick The Habit? Free Tobacco Cessation Resources [facility] Tobacco Treatment Center Services [facility] Tobacco Treatment Centers provide all employees with free tobacco cessation services that include: Counseling to understand nicotine addiction Education about medications that can help you successfully quit Assistance with developing a plan to quit Call to set up an individual appointment or find out when group classes will be held: [facility]: [phone] [facility]: [phone] [facility]: [phone] [facility]: [phone] Quit Smoking Action Plan and Resources [facility] offers an eight-week, online smoking cessation plan to all [facility] employees, regardless of whether [employer] is your medical insurance provider. Go to [email or web address].[email or web address]/[email or web address] ess and click the Health Risk Assessment and Resources link to get started. In the ARKeX menu, click Action Plans instead of Health Risk Assessment to access the Quit Smoking Action Plan. Additional smoking cessation resources are also available to all [facility] employees on the Naufm1Wxpvet web page at www.[employer] [place]/quits paddy. [place] Tobacco Cessation Program If [employer] is your medical insurance provider, there are more free resources available to you, including: No copays or deductibles on local tobacco cessation counseling services to help you quit Prescription assistance for tobacco cessation medications to help you quit For details about the tobacco cessation program available to [employer] members, go to www.PASSNFLY.FlyClip (Search: Tobacco Cessation Program). [place] Tobacco Quit Line 5-211-KYKB-NOW ( ) is a toll-free, telephonic service that helps [place] residents quit smoking and using tobacco. It is staffed by experts who tailor a quit plan for you and provide you with advice. [place] Tobacco Quit Line 9-135-KZAW-NOW ( ) is a toll-free, telephonic service that helps [place] residents quit smoking and using tobacco. It is staffed by experts who tailor a quit plan for you and provide you with advice. Two weeks of nicotine replacement therapy may be provided at no charge, if needed. Additional Resources These national organizations also offer free information and resources to help you quit tobacco: [place] [employer]--www.cancer.org/healthy/s tayawayfromtobacco [place] Heart Association--www.heart.org (Search: Quit Smoking) Centers for Disease Control and Prevention--www.cdc.gov/tobacco [place] Lung Association--www.lungusa.org The following attachments cannot be sent through Care Everywhere.Attention Deficit Hyperactivity Disorder (ADHD) Discharge Instructions (Sudanese)Psychotherapy (Sudanese)documented in this encounter [facility] 10-09-2023 History of Present illness Narrative No Show documented in this encounter [facility] 10-09-2023 Note HNO ID: [id number] Author: SIMRAN NELSON APRN.CNP Service: ? Author Type: Nurse Practitioner Type: Progress Notes Filed: 10/09/2023 12:44 Note Text: No Show [facility] 09-29-2023 Miscellaneous Notes Referral to Oncology Behavioral Health - psychiatry. Patient previously no showed. Called today to reschedule, but patient's voicemail is not set up. Will continue to follow up. Kevin Monahan September 29, 2023 documented in this encounter [facility] 09-28-2023 Note HNO ID: [id number] Author: SIMRAN NELSON APRN.CNP Service: ? Author Type: Nurse Practitioner Type: Progress Notes Filed: 09/28/2023 16:21 Note Text: This note may have been partially generated using the [employer] Sy-Tecon voice recognition system. While every effort was made to correct voice recognition errors, kindly be aware that some errors may occasionally occur. [facility] 09-28-2023 History of Present illness Narrative This note may have been partially generated using the R[employer]R Sy-Tecon voice recognition system. While every effort was made to correct voice recognition errors, kindly be aware that some errors may occasionally occur. documented in this encounter [facility] 09-24-2023 Note HNO ID: [id number] Author: TOBI PLATA MD Service: ? Author Type: Physician Type: Progress Notes Filed: 09/24/2023 13:47 Note Text: Patient no showed on intake appointment to psychiatry on 09/22/2023. This is a late entry. Tobi Plata MD [facility] 09-24-2023 History of Present illness Narrative Patient no showed on intake appointment to psychiatry on 09/22/2023. This is a late entry. Tobi Plata MD documented in this encounter [facility] 08-17-2023 Instructions Barbara Wren - 08/17/2023 2:28 PM EST Referral to ENT RTC after ENT consultation and workup documented in this encounter [facility] 08-17-2023 History of Present illness Narrative Images from the original note were not included. NAME: Joselyn Carnes [facility] NO.: [id number] DATE OF SERVICE: August 17, 2023 ([facility]) Some elements in this clinic note [...] which included preparing to see the patient, [id number] patient care, completing clinical documentation, obtaining and/or reviewing separately obtained history, performing a medically appropriate examination, counseling and educating the patient/family/caregiver, ordering medications, tests, or procedures, independently interpreting results (not separately reported), communicating results to the patient/family/caregiver, and care coordination (not separately reported). Rich Hill MD, CPE Hematology and Oncology Services Provided at: [place], [place] Scribe Attestation: This note was scribed [...] provider on file. documented in this encounter [facility] 08-12-2023 Miscellaneous Notes Prior Authorization Documentation Prior authorization requested for: MEDICATION Butran 5 mcg TD patch Submitted via Cover [employer] BWQDV Insurance Company Name: [employer] and Pharmacy Name: [facility] and Authorization approval #: AWAITING DETERMINATION Dates of Approval: from ? to ? Patient Assistance Needed: Yes, patient updated. Time Spent 20 Marialuisa Portillo RN August 12, 2023 documented in this encounter [facility] 08-12-2023 History of Present illness Narrative [...] 1250 PATIENT DISCHARGED TO: Ambulatory patient, left [place] department area. A Diagnostic radioactive procedure has taken place, with no further precautions necessary other than routine body substance precautions. More information regarding radiation safety can be found using this link: [email or web address] [email or web address] SIGNATURE: RT Diana(R) PATIENT NAME: Joselyn Carnes DATE: August 12, 2023 TIME: 3:04 PM PAGER/CONTACT #: documented in this encounter [facility] 08-11-2023 Instructions Simran Nelson APRN.RN PERIOPERATIVE - 08/11/2023 3:19 PM EST Simran Nelson CNP Department of Palliative and Supportive Care Palliative Care - Specialty services in symptom management and support For questions or prescription refills, call: [phone] Thursday - Thursday 9AM-5PM BISHOP Baldwin, RN - Abstract Searcher Please call 3-5 days in advance for medication refills Evenings, Weekends, Holidays: [phone] (ask for palliative medicine on-call provider) For appointments, cancellations or reschedule, call: [phone] documented in this encounter [facility] 08-11-2023 History of Present illness Narrative PALLIATIVE MEDICINE INITIAL CONSULT SERVICE DATE: 08/11/2023 Referring Physician: Rich Hill MD [address] [place] [address] [place] [address] Medical Oncologist: Rich Hill MD Primary Physician: [...] Cigarettes, Chew REVIEW OF SYSTEMS: Modified ESAS ([place] Symptom Assessment Scale): Information Provided By: Patient [...] ear normal. Nose: Nose normal. Mouth/Throat: Lips: Channing. Mouth: Mucous membranes are moist. No oral [...] and Informed Consent: Signed today Simran Nelson, DIKE SUPERVISOR, HANDS ASSEMBLER.RN PERIOPERATIVE Assessment & Plan (Z51.5) Palliative care by specialist (primary encounter diagnosis) - Introduced philosophy of palliative medicine - Discussed services offered by [facility] - Provided support - Discussed goals [...] chronic pain severe enough to require daily, qnghte-fuq-wkhxt, jail opioid treatment AND ? Alternative treatment options [...] which included preparing to see the patient, sgrw-su-ophb patient care, completing clinical documentation, obtaining and/or [...] shared electronic medical record. Simran Nelson NP, HANDS ASSEMBLER.RN PERIOPERATIVE August 11, 2023 2:55 PM This note may have been partially generated using the Semadic voice recognition system. While every effort was made to correct voice recognition errors, kindly be aware that some errors may occasionally occur. documented in this encounter [facility] 07-29-2023 Instructions Barbara Wren - 07/29/2023 4:06 PM EST Referral to palliative care PET/CT with labs RTC same day documented in this encounter [facility] 07-29-2023 History of Present illness Narrative Images from the original note were not included. NAME: Joselyn Carnes NO.: [id number] DATE OF SERVICE: July 29, 2023 (ankar) [...] which included preparing to see the patient, oohs-wi-pbtt patient care, completing clinical documentation, obtaining and/or reviewing separately obtained history, performing a medically appropriate examination, counseling and educating the patient/family/caregiver, ordering medications, tests, or procedures, independently interpreting results (not separately reported), communicating results to the patient/family/caregiver, and care coordination (not separately reported). Rich Hill MD, CPE Hematology and Oncology Services Provided at: [place], [place] Scribe Attestation: This note was scribed [...] provider on file. documented in this encounter [facility] 07-13-2018 History of Past i llness [...] of this encounter (statuses as of 08/11/2021) [facility] History of Past illness Narrative* Problem [...] of this encounter (statuses as of 07/27/2023) [facility] History of Past illness Narrative* Problem [...] of this encounter (statuses as of 08/01/2023) [facility] History of Past illness Narrative* Problem [...] of this encounter (statuses as of 08/12/2023) [facility] History of Past illness Narrative* Problem [...] of this encounter (statuses as of 08/12/2023) [facility] of [facility] Narrative* Problem [...] of this encounter (statuses as of 08/13/2023) [facility] of [facility] Narrative* Problem [...] of this encounter (statuses as of 08/18/2023) [facility] of [facility] Narrative* Problem [...] of this encounter (statuses as of 09/25/2023) [facility] of [facility] Narrative* Problem [...] of this encounter (statuses as of 09/29/2023) [facility] of [facility] Narrative* Problem [...] of this encounter (statuses as of 09/30/2023) [facility] 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 Cancer associated pain Neoplasm related pain (acute) (chronic) Cigarette smoker one half pack a day or less Tobacco use disorder s/p 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[facility]) Bone marrow replaced by transplant [facility] Diagnosis Neoplasm related pain Neoplasm related pain (acute) (chronic) Post-traumatic osteoarthritis of multiple joints Drug-induced constipation Other constipation Insomnia due to medical condition Insomnia due to medical condition classified elsewhere [facility] Diagnosis Palliative care by specialist- [...] Auditory hallucinations Hallucinations [facility] Diagnosis 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 Tonsillitis Acute tonsillitis 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HCC) Bone marrow replaced by transplant Abnormal finding on imaging Other nonspecific (abnormal) findings on radiological and other examinations of body structure [facility] Diagnosis Anxiety- Primary Anxiety state, unspecified Auditory hallucinations Hallucinations [facility] Diagnosis NO SHOW- Primary documented in this encounter [facility] note* Diagnosis 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 use disorder, severe, in early remission (HCC) Marijuana use disorder in remission Homicidal ideation [facility] Diagnosis Encounter for palliative care- Primary [facility] Diagnosis 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) Bone marrow replaced by transplant Abnormal finding on imaging Other nonspecific (abnormal) findings on radiological and other examinations of body structure [facility] Diagnosis Palliative care by specialist- Primary Neoplasm related pain Neoplasm related pain (acute) (chronic) Opioid contract exists Encounters for other specified administrative purpose Osteoarthritis of spine, unspecified spinal osteoarthritis complication status, unspecified spinal region 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) Drug-induced constipation Other constipation documented in this encounter [facility] note* Diagnosis Neoplasm related pain Neoplasm related pain (acute) (chronic) Osteoarthritis of spine, unspecified spinal osteoarthritis complication status, unspecified spinal region [facility] Diagnosis Right-sided chest wall pain- Primary [...] regions (HCC)- Primary documented in this encounter [facility] note* Diagnosis Right-sided chest wall pain- [...] venous embolism and thrombosis of axillary veins LUZIA (acute kidney injury) (HCC) Acute kidney failure, [...] structure documented in this encounter [facility] note* Diagnosis Right-sided chest wall pain- [...] multiple regions (HCC) [facility] Chronic pain syndrome- Primary Chronic left hip pain Muscle spasm Spasm of muscle Attention deficit hyperactivity disorder (ADHD), unspecified ADHD type [facility] Diagnosis Chronic pain syndrome Chronic left hip pain [facility]* Diagnosis Drug-induced erectile dysfunction- Primary [facility]* Diagnosis Chronic left hip pain- Primary Chronic pain syndrome Muscle spasm Spasm of muscle documented [facility]* Diagnosis Chronic pain syndrome Chronic left hip pain documented in this encounter [facility]* Diagnosis Nodular lymphocyte predominant Hodgkin [...] Tonsillitis Acute tonsillitis documented in this encounter [facility]* Diagnosis Nodular lymphocyte predominant Hodgkin [...] Tonsillitis Acute tonsillitis [facility] Diagnosis 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 Unspecified chorioretinitis Other specified retinal disorders Other specified retinal disorders 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 Unspecified chorioretinitis [facility] Diagnosis 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 Unspecified chorioretinitis [facility] Diagnosis Other specified retinal disorders [facility] Diagnosis Chronic midline low back pain with sciatica, sciatica laterality unspecified- Primary Right rotator cuff tear arthropathy [facility] Diagnosis 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)- Primary 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) [facility] Diagnosis 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) [facility] Diagnosis 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)- Primary 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) [facility] Diagnosis 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)- Primary 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) [facility] Diagnosis 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)- Primary Abnormal findings on imaging test Other nonspecific (abnormal) findings on radiological and other examinations of body structure [facility] Diagnosis 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)- Primary Abnormal findings on imaging test Other nonspecific (abnormal) findings on radiological and other examinations of body structure 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) [facility] Diagnosis 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)- Primary Abnormal findings on imaging test Other nonspecific (abnormal) findings on radiological and other examinations of body structure 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) Preop examination- Primary Unspecified pre-operative examination [facility] Diagnosis Preop examination- Primary Unspecified pre-operative examination Preop examination Unspecified pre-operative examination [facility] Diagnosis 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)- Primary [facility]* Diagnosis 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)- Primary 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) Inguinal lymphadenopathy Enlargement of lymph nodes [facility] Diagnosis Lymphadenopathy- Primary Enlargement of lymph nodes [facility]* Diagnosis 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 ([facility]-HCC) documented in this encounter [facility] SystemInstructionsNot on filedocumented in this encounter [facility]* Attachments The following attachments cannot be sent through Care Everywhere. * Erectile Dysfunction (Sudanese) documented [facility] System[facility]ructionsNot on file documented in this encounter[facility] SystemInstructionsNot on file documented in this encounterProL[facility] Hospital[facility] SystemInstructionsNot on file documented in this [facility] SystemInstructionsNot on file documented in this encounterProL[facility] Hospital[facility] SystemInstructionsNot on file documented in this encounter[facility] Availigent SystemInstructionsNot on file documented in this encounter[facility] Health SystemInstructionsNot on file documented in this encounterProLutheran HospitalFabZat SystemInstructionsNot on file documented in this encounterPro[facility] Availigent SystemInstructionsNot on file documented in this encounterPro[facility] Availigent SystemInstructionsNot on file documented in this encounterProHill [facility] SystemInstructionsNot on file [facility] SystemReason for referral (narrative)* Diagnostic Procedure Only (Routine) - Open Specialty Diagnoses / Procedures Referred By Contact Referred To Contact MOLECULAR & FUNCTIONAL IMAGING Diagnoses 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) Abnormal finding on imaging Procedures NM PET/CT SKULL-THIGH SUBSEQUENT PET IMAGING CT ATTENUATION SKULL BASE MID-THIGH Rich Hill MD [address] [place] [address] [address] [place] [id number] Molecular & Functional Imaging [address] [place] [address] Referral ID Status Reason Start Date Expiration Date V isits Requested Visits Authorized [id number] Open Auto-Generate d Referral 12/18/2023 01/16/2025 1 1 [facility] for referral (narrative)* Diagnostic Procedure Only (Routine) - Closed Specialty Diagnoses / Procedures Referred By Contact Referred To Contact MOLECULAR & FUNCTIONAL IMAGING Diagnoses 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) Abnormal finding on imaging Procedures NM PET/CT SKULL-THIGH SUBSEQUENT PET IMAGING CT ATTENUATION SKULL BASE MID-THIGH Rich Hill MD [address] [place] [address] [place] [address] Molecular & Functional Imaging [address] [place] [address] Referral ID Status Reason Start Date Expiration Date V isits Requested Visits Authorized [id number] Closed Auto-Generate d Referral 01/04/2024 02/02/2024 1 1 [facility] for referral (narrative)* Diagnostic Procedure Only (Routine) - Closed Specialty Diagnoses / Procedures Referred By Contact Referred To Contact MOLECULAR & FUNCTIONAL IMAGING Diagnoses 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) Procedures NM PET/CT WHOLE BODY SUBSEQUENT PET IMAGING FOR CT ATTENUATION WHOLE BODY Rich Hill MD [address] [place] [address] [place] [address] Molecular & Functional Imaging [address] [place] [address] Referral ID Status Reason Start Date Expiration Date V isits Requested Visits Authorized [id number] Closed Auto-Generate d Referral 08/12/2023 06/14/2024 1 1 [facility] for referral (narrative)* Consultation (Routine) - Pending Review Specialty Diagnoses / Procedures Referred By Geraldine marlow Referred To Contact Behavioral Health Diagnoses Attention deficit hyperactivity disorder (ADHD), unspecified ADHD type Shanthi Lu APRN-HERACLIO [address] [place] [address] [facility] [address] [place] [address] Referral ID Status Reason Start Date Expiration Date Visits Requested Visits Authorized [id number] Pending Review Specialty Services Required 10/19/2023 10/18/2024 1 1 * Medication Prior Authorization - Closed Specialty Diagnoses / Procedures Referred By Contsimba t Referred To Contact Diagnoses Chronic pain syndrome Chronic left hip pain Shanthi Lu APRN-HERACLIO [address] [place] [address] Referral ID Status Reason Start Date Expiration Date Visits Re quested Visits Authorized [id number] Closed 1 1 [facility] Summary Purpose Family History No Family History Records FoundNo Family History Records FoundNo Family History Records FoundNo Family History Records FoundNo Family History Records FoundNo Family History Records FoundNo Family History Records FoundNo Family History Records FoundNo Family History Records Found Advance Directives Documents on File Type Date Recorded Patient Systems Engineering Manager Expl anation Advance Directive(s) Advance Directive(s) 08/11/2018 9:03 AM Advance Directive(s) 01/28/2017 8:08 AM Advance Directive(s) 01/14/2017 2:06 PM Advance Directive(s) 11/19/2016 3:00 PM Documents on File Type Date Recorded Patient Systems Engineering Manager Expl anation Advance Directive(s) 11/19/2016 3:00 PM Documents on File Type Date Recorded Patient Systems Engineering Manager Expl anation Advance Directive(s) 11/19/2016 3:00 PM Reason for Referral Specialty Diagnoses / Procedures Referred By Contac t Referred To Contact Diagnoses 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 Simran Nelson APRN.RN PERIOPERATIVE [address] [place] [address] Referral ID Status Reason Start Date Expiration Date V isits Requested Visits Authorized [id number] Pending Review 1 1 Specialty Diagnoses / Procedures Referred By Contac t Referred To Contact Ent - Otolaryngology Diagnoses Tonsillitis 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) Abnormal finding on imaging Procedures CONSULT TO ENT OFFICE/OUTPATIENT NEW HIGH MDM 60 MINUTES Rich Hill MD [address] [place] [address] [place] [address] Referral ID Status Reason Start Date Expiration Date Visits Requested Visits Authorized [id number] Authorized PCP Requested Referral 08/17/2023 08/16/2024 1 1 Specialty Diagnoses / Procedures Referred By Contac t Referred To Contact Diagnoses Chronic pain syndrome Chronic left hip pain Lu, Shanthi J, HANDS ASSEMBLER-RN PERIOPERATIVE [address] [place] [address] Referral ID Status Reason Start Date Expiration Date Visits Re quested Visits Authorized [id number] Closed 1 1 Specialty Diagnoses / Procedures Referred By Contac t Referred To Contact Diagnoses Pre-op testing Procedures ECG 12 lead Fortunato Grady MD [address] [place] [address] Referral ID Status Reason Start Date Expiration Date V isits Requested Visits Authorized [id number] Pending Review 02/01/2024 01/31/2025 1 1 Additional Source Comments (unrecognized sect ion and content) No Status Records FoundNo Status Records FoundNo Status Records FoundNo Status Records FoundNo Status Records FoundNo Status Records FoundNo Status Records FoundNo Status Records FoundNo Status Records Found INFORMATION SOURCE (unrecogn ized section and content) DATE CREATED AUTHOR 12/18/2018 [facility] DATE CREATED AUTHOR AUTHOR'S ORGANIZ ATION 12/27/2018 [facility] DATE CREATED AUTHOR AUTHOR'S ORGANIZ ATION 05/26/2021 [facility] DATE CREATED AUTHOR AUTHOR'S ORGANIZ ATION 06/12/2022 [employer] DATE CREATED AUTHOR AUTHOR'S ORGANIZ ATION 08/15/2023 [facility] DATE CREATED AUTHOR AUTHOR'S ORGANIZ ATION 02/09/2024 [facility] DATE CREATED AUTHOR AUTHOR'S ORGANIZ ATION 09/17/2024 [facility] DATE CREATED AUTHOR AUTHOR'S ORGANIZ ATION 01/21/2025 [facility] DATE CREATED AUTHOR AUTHOR'S ORGANIZ ATION 01/31/2025 [facility] Ambulatory [employer] Source Comments (unrecognize d section and content) In the event this informatio n is protected by the Federal Confidentiality of Alcohol and Drug Abuse Patient Records regulations: The Federal rules restrict any use of the information to criminally investigate or prosecute any alcohol or drug abuse patient.[facility] Hospital[facility] the event this information is protected by the Federal Confidentiality of Alcohol and Drug Abuse Patient Records regulations: The Federal rules restrict any use of the information to criminally investigate or prosecute any alcohol or drug abuse patient.[facility] HospitalIn the event this information is protected by the Federal Confidentiality of Alcohol and Drug Abuse Patient Records regulations: The Federal rules restrict any use of the information to criminally investigate or prosecute any alcohol or drug abuse patient.[facility] HospitalIn the event this information is protected by the Federal Confidentiality of Alcohol and Drug Abuse Patient Records regulations: The Federal rules restrict any use of the information to criminally investigate or prosecute any alcohol or drug abuse patient.[facility] HospitalIn the event this information is protected by the Federal Confidentiality of Alcohol and Drug Abuse Patient Records regulations: The Federal rules restrict any use of the information to criminally investigate or prosecute any alcohol or drug abuse patient.[facility] the event this information is protected by the Federal Confidentiality of Alcohol and Drug Abuse Patient Records regulations: The Federal rules restrict any use of the information to criminally investigate or prosecute any alcohol or drug abuse patient.[facility] HospitalIn the event this information is protected by the Federal Confidentiality of Alcohol and Drug Abuse Patient Records regulations: The Federal rules restrict any use of the information to criminally investigate or prosecute any alcohol or drug abuse patient.[facility] HospitalIn the event this information is protected by the Federal Confidentiality of Alcohol and Drug Abuse Patient Records regulations: The Federal rules restrict any use of the information to criminally investigate or prosecute any alcohol or drug abuse patient.[facility] HospitalIn the event this information is protected by the Federal Confidentiality of Alcohol and Drug Abuse Patient Records regulations: The Federal rules restrict any use of the information to criminally investigate or prosecute any alcohol or drug abuse patient.[facility] HospitalIn the event this information is protected by the Federal Confidentiality of Alcohol and Drug Abuse Patient Records regulations: The Federal rules restrict any use of the information to criminally investigate or prosecute any alcohol or drug abuse patient.[facility] HospitalIn the event this information is protected by the Federal Confidentiality of Alcohol and Drug Abuse Patient Records regulations: The Federal rules restrict any use of the information to criminally investigate or prosecute any alcohol or drug abuse patient.[facility] HospitalIn the event this information is protected by the Federal Confidentiality of Alcohol and Drug Abuse Patient Records regulations: The Federal rules restrict any use of the information to criminally investigate or prosecute any alcohol or drug abuse patient.[facility] HospitalIn the event this information is protected by the Federal Confidentiality of Alcohol and Drug Abuse Patient Records regulations: The Federal rules restrict any use of the information to criminally investigate or prosecute any alcohol or drug abuse patient.[facility] HospitalIn the event this information is protected by the Federal Confidentiality of Alcohol and Drug Abuse Patient Records regulations: The Federal rules restrict any use of the information to criminally investigate or prosecute any alcohol or drug abuse patient.[facility] HospitalIn the event this information is protected by the Federal Confidentiality of Alcohol and Drug Abuse Patient Records regulations: The Federal rules restrict any use of the information to criminally investigate or prosecute any alcohol or drug abuse patient.[facility] HospitalIn the event this information is protected by the Federal Confidentiality of Alcohol and Drug Abuse Patient Records regulations: The Federal rules restrict any use of the information to criminally investigate or prosecute any alcohol or drug abuse patient.[facility] HospitalIn the event this information is protected by the Federal Confidentiality of Alcohol and Drug Abuse Patient Records regulations: The Federal rules restrict any use of the information to criminally investigate or prosecute any alcohol or drug abuse patient.[facility] HospitalIn the event this information is protected by the Federal Confidentiality of Alcohol and Drug Abuse Patient Records regulations: The Federal rules restrict any use of the information to criminally investigate or prosecute any alcohol or drug abuse patient.[facility] HospitalIn the event this information is protected by the Federal Confidentiality of Alcohol and Drug Abuse Patient Records regulations: The Federal rules restrict any use of the information to criminally investigate or prosecute any alcohol or drug abuse patient.[facility] HospitalIn the event this information is protected by the Federal Confidentiality of Alcohol and Drug Abuse Patient Records regulations: The Federal rules restrict any use of the information to criminally investigate or prosecute any alcohol or drug abuse patient.[facility] HospitalIn the event this information is protected by the Federal Confidentiality of Alcohol and Drug Abuse Patient Records regulations: The Federal rules restrict any use of the information to criminally investigate or prosecute any alcohol or drug abuse patient.[facility] HospitalIn the event this information is protected by the Federal Confidentiality of Alcohol and Drug Abuse Patient Records regulations: The Federal rules restrict any use of the information to criminally investigate or prosecute any alcohol or drug abuse patient.[facility] HospitalIn the event this information is protected by the Federal Confidentiality of Alcohol and Drug Abuse Patient Records regulations: The Federal rules restrict any use of the information to criminally investigate or prosecute any alcohol or drug abuse patient.[facility] HospitalIn the event this information is protected by the Federal Confidentiality of Alcohol and Drug Abuse Patient Records regulations: The Federal rules restrict any use of the information to criminally investigate or prosecute any alcohol or drug abuse patient.[facility] HospitalIn the event this information is protected by the [facility] Confidentiality of Alcohol and Drug Abuse Patient Records regulations: The Federal rules restrict any use of the information to criminally investigate or prosecute any alcohol or drug abuse patient.[facility] HospitalIn the event this information is protected by the Federal Confidentiality of Alcohol and Drug Abuse Patient Records regulations: The Federal rules restrict any use of the information to criminally investigate or prosecute any alcohol or drug abuse patient.[facility] Care Teams (unrecognized sec tion and content) Bumper And Painter Relationship Specialty Start Date End Date Dilcia Ramirez [address] [place] [address] [address] [place] [address] PCP - General Family Practice 04/22/16 12/19/18 [place] [address] [place], [place] [id number] Physician Blood and Marrow Transplant 11/17/16 Lupis Bass (Eitan) [address] [place] [address] Broomcorn Sorter Blood and Marrow Transplant 01/07/17 Hannah Henson MD [address] [place] [address] Primary Staff Physician Cardiology 08/31/18 Hannah Henson MD [address] [facility] [place] [address] Primary Staff Physician Cardiology 08/31/18 Bumper And Painter Relationship Specialty Start Date [place] [address] [place] [address] Physician Blood and Marrow Transplant 11/17/16 Lupis Bass () [address] [place] [address] Broomcorn Sorter Blood and Marrow Transplant 01/07/17 Hannah Henson MD [address] [place] [address] Primary Staff Physician Cardiology 08/31/18 Bumper And Painter Relationship Specialty Start [place] [address] [place] [address] Physician Blood and Marrow Transplant 11/17/16 Lupis Bass () [address] [place] [address] Broomcorn Sorter Blood and Marrow Transplant 01/07/17 Hannah Henson MD [address] [place] [address] Primary Staff Physician Cardiology 08/31/18 Bumper And Painter Relationship Specialty Start [place] [address] [place] [address] Physician Blood and Marrow Transplant 11/17/16 Lupis Bass () [address] [place] [address] Broomcorn Sorter Blood and Marrow Transplant 01/07/17 Hannah Henson MD [address] [place] [address] Primary Staff Physician Cardiology 08/31/18 Bumper And Painter Relationship Specialty Start [place] [address] [place] [address] Physician Blood and Marrow Transplant 11/17/16 Lupis Bass () [address] [place] [address] Broomcorn Sorter Blood and Marrow Transplant 01/07/17 Hannah Henson MD [address] [place] [address] Primary Staff Physician Cardiology 08/31/18 Bumper And Painter Relationship Specialty Start [place] [address] [place] [address] Physician Blood and Marrow Transplant 11/17/16 Lupis Bass () [address] [place] [address] Broomcorn Sorter Blood and Marrow Transplant 01/07/17 Hannah Henson MD [address] [place] [address] Primary Staff Physician Cardiology 08/31/18 Bumper And Painter Relationship Specialty Start [place] [address] [place] [address] Physician Blood and Marrow Transplant 11/17/16 Lupis Bass () [address] [place], [place] [id number] Broomcorn Sorter Blood and Marrow Transplant 01/07/17 Hannah Henson MD [address] [place] [address] Primary Staff Physician Cardiology 08/31/18 Bumper And Painter Relationship Specialty Start Date [place] [address] [place] [address] Physician Blood and Marrow Transplant 11/17/16 Lupis Bass () [address] [facility] [place] [address] Broomcorn Sorter Blood and Marrow Transplant 01/07/17 Hannah Henson MD [address] [place] [address] Primary Staff Physician Cardiology 08/31/18 Simran Nelson APRN.RN PERIOPERATIVE [address] [place] [address] [place] [address] Hospice & Palliative Medicine 08/19/23 Marialuisa Portillo, RN Specialty Abstract Searcher Hospice & Palliative Medicine 08/19/23 Bumper And Painter Relationship Specialty Start Date [place] [address] [place] [address] Physician Blood and Marrow Transplant 11/17/16 Lupis Bass () [address] [facility] [place] [address] Broomcorn Sorter Blood and Marrow Transplant 01/07/17 Hannah Henson MD [address] [place], [place] [id number] Primary Staff Physician Cardiology 08/31/18 Simran Nelson, HANDS ASSEMBLER.RN PERIOPERATIVE [address] [place] [address] [place] [address] Hospice & Palliative Medicine 08/19/23 Marialuisa Portillo RN Specialty Abstract Searcher Hospice & Palliative Medicine 08/19/23 Bumper And Painter Relationship Specialty Start [place] [address] [place] [address] Physician Blood and Marrow Transplant 11/17/16 Lupis Bass () [address] [facility] [address] Broomcorn Sorter Blood and Marrow Transplant 01/07/17 Hannah Henson MD [address] [facility] [address] Primary Staff Physician Cardiology 08/31/18 Simran Nelson, HANDS ASSEMBLER.RN PERIOPERATIVE [address] [place] [address] [place] [address] Hospice & Palliative Medicine 08/19/23 Marialuisa Portillo RN Specialty Abstract Searcher Hospice & Palliative Medicine 08/19/23 Bumper And Painter Relationship Specialty Start Date [place] [address] [place] [address] Physician Blood and Marrow Transplant 11/17/16 Lupis Bass () [address] [facility] [address] Broomcorn Sorter Blood and Marrow Transplant 01/07/17 Hannah Henson MD [address] [facility] [address] Primary Staff Physician Cardiology 08/31/18 Simran Nelson, HANDS ASSEMBLER.RN PERIOPERATIVE [address] [place] [address] [place] [address] Hospice & Palliative Medicine 08/19/23 Marialuisa Portillo RN Specialty Abstract Searcher Hospice & Palliative Medicine 08/19/23 Bumper And Painter Relationship Specialty Start Date [place] [address] [place] [address] Physician Blood and Marrow Transplant 11/17/16 Lupis Bass () [address] [place], [place] [id number] Broomcorn Sorter Blood and Marrow Transplant 01/07/17 Hannah Henson MD [address] [place] [address] Primary Staff Physician Cardiology 08/31/18 Simran Nelson, HANDS ASSEMBLER.RN PERIOPERATIVE [address] [place] [address] [place] [address] Hospice & Palliative Medicine 08/19/23 Marialuisa Portillo RN Specialty Abstract Searcher Hospice & Palliative Medicine 08/19/23 Bumper And Painter Relationship Specialty Start Date [place] [address] [place] [address] Physician Blood and Marrow Transplant 11/17/16 Lupis Bass () [address] [place], [place] [id number] Broomcorn Sorter Blood and Marrow Transplant 01/07/17 Hannah Henson MD [address] [place] [address] Primary Staff Physician Cardiology 08/31/18 Simran Nelson, HANDS ASSEMBLER.RN PERIOPERATIVE [address] [place] [address] [place] [address] Hospice & Palliative Medicine 08/19/23 Marialuisa Portillo RN Specialty Abstract Searcher Hospice & Palliative Medicine 08/19/23 Bumper And Painter Relationship Specialty Start Date [place] [address] [place] [address] Physician Blood and Marrow Transplant 11/17/16 Lupis Bass () [address] [place] [address] Broomcorn Sorter Blood and Marrow Transplant 01/07/17 Hannah Henson MD [address] [place] [address] Primary Staff Physician Cardiology 08/31/18 Simran Nelson, HANDS ASSEMBLER.RN PERIOPERATIVE [address] [place] [address] [place] [address] Hospice & Palliative Medicine 08/19/23 Marialuisa Portillo RN Specialty Abstract Searcher Hospice & Palliative Medicine 08/19/23 Bumper And Painter Relationship Specialty Start [place] [address] [place] [address] Physician Blood and Marrow Transplant 11/17/16 Lupis Bass () [address] [place], [place] [id number] Broomcorn Sorter Blood and Marrow Transplant 01/07/17 Hannah Henson MD [address] [facility] [place] [address] Primary Staff Physician Cardiology 08/31/18 Simran Nelson, HANDS ASSEMBLER.RN PERIOPERATIVE [address] [place] [address] [place] [address] Hospice & Palliative Medicine 08/19/23 Marialuisa Portillo RN Specialty Abstract Searcher Hospice & Palliative Medicine 08/19/23 Bumper And Painter Relationship Specialty Start Date [place] [address] [place] [address] Physician Blood and Marrow Transplant 11/17/16 Lupis Bass () [address] [place] [address] Broomcorn Sorter Blood and Marrow Transplant 01/07/17 Hannah Henson MD [address] [place], [place] [address] Primary Staff Physician Cardiology 08/31/18 Simran Nelson, HANDS ASSEMBLER.RN PERIOPERATIVE [address] [place] [address] [place] [address] Hospice & Palliative Medicine 08/19/23 Marialuisa Portillo RN Specialty Abstract Searcher Hospice & Palliative Medicine 08/19/23 Bumper And Painter Relationship Specialty Start Date [place] [address] [place] [address] Physician Blood and Marrow Transplant 11/17/16 Lupis Bass () [address] [place], [place] [address] Broomcorn Sorter Blood and Marrow Transplant 01/07/17 Hannah Henson MD [address] [facility] [place] [address] Primary Staff Physician Cardiology 08/31/18 Simran Nelson, HANDS ASSEMBLER.RN PERIOPERATIVE [address] [place] [address] [place] [address] Hospice & Palliative Medicine 08/19/23 Marialuisa Portillo, RN Specialty Abstract Searcher Hospice & Palliative Medicine 08/19/23 Bumper And Painter Relationship Specialty Start [place] [address] [place] [address] Physician Blood and Marrow Transplant 11/17/16 Lupis Bass () [address] [place] [address] Broomcorn Sorter Blood and Marrow Transplant 01/07/17 Hannah Henson MD [address] [place] [address] Primary Staff Physician Cardiology 08/31/18 Simran Nelson, HANDS ASSEMBLER.RN PERIOPERATIVE [address] [place] [address] [place] [address] Hospice & Palliative Medicine 08/19/23 Marialuisa Portillo, RN Specialty Abstract Searcher Hospice & Palliative Medicine 08/19/23 Bumper And Painter Relationship Specialty Start Date [place] [address] [place] [address] Physician Blood and Marrow Transplant 11/17/16 Lupis Bass () [address] [place], [place] [id number] Broomcorn Sorter Blood and Marrow Transplant 01/07/17 Hannah Henson MD [address] [place] [address] Primary Staff Physician Cardiology 08/31/18 Simran Nelson APRN.HERACLIO [address] [place] [address] [place] [address] Hospice & Palliative Medicine 08/19/23 Marialuisa Portillo, RN Specialty Abstract Searcher Hospice & Palliative Medicine 08/19/23 Bumper And Painter Relationship Specialty Start [place] [address] [place] [address] Physician Blood and Marrow Transplant 11/17/16 Lupis Bass () [address] [place] [address] Broomcorn Sorter Blood and Marrow Transplant 01/07/17 Hannah Henson MD [address] [place] [address] Primary Staff Physician Cardiology 08/31/18 Bumper And Painter Relationship Specialty Start Date End Date Shanthi Lu APRN-RN PERIOPERATIVE [address] [place] [phone] PCP - General Family Medicine 10/19/23 Bumper And Painter Relationship Specialty Start Date End Date Shanthi Lu APRN-RN PERIOPERATIVE [address] [place] [address] PCP - General Family Medicine 10/19/23 Bumper And Painter Relationship Specialty Start Date End Date Shanthi Lu APRN-RN PERIOPERATIVE [address] [place] [address] PCP - General Family Medicine 10/19/23 Bumper And Painter Relationship Specialty Start Date End Date Shanthi Lu [facility] [address] [place] [address] PCP - General Family Medicine 10/19/23 Bumper And Painter Relationship Specialty Start Date End Date Shanthi Lu [facility] [address] [place] [address] PCP - General Family Medicine 10/19/23 Bumper And Painter Relationship Specialty Start Date End Date Shanthi Lu [facility] [address] [place] [address] PCP - General Family Medicine 10/19/23 Bumper And Painter Relationship Specialty Start Date End Date Shanthi Lu [facility] [address] [place] [address] PCP - General Family Medicine 10/19/23 Bumper And Painter Relationship Specialty Start Date End Date Shanthi Lu [facility] [address] [place] [address] PCP - General Family Medicine 10/19/23 Bumper And Painter Relationship Specialty Start Date End Date Shanthi Lu [facility] [address] [place] [address] PCP - General Family Medicine 10/19/23 Bumper And Painter Relationship Specialty Start Date End Date Shanthi Lu HANDS ASSEMBLER-RN PERIOPERATIVE [address] [place] [address] PCP - General Family Medicine 10/19/23 Bumper And Painter Relationship Specialty Start Date End Date Shanthi Lu HANDS ASSEMBLER-RN PERIOPERATIVE [address] [place] [address] PCP - General Family Medicine 10/19/23 Bumper And Painter Relationship Specialty Start Date End Date Shanthi Lu HANDS ASSEMBLER-RN PERIOPERATIVE [address] [place] [address] PCP - General Family Medicine 10/19/23 Bumper And Painter Relationship Specialty Start Date [place] [address] [place] [address] Physician Blood and Marrow Transplant 11/17/16 Lupis Bsas () [address] [place], [place] [id number] Broomcorn Sorter Blood and Marrow Transplant 01/07/17 Hannah Henson MD [address] [place] [address] Primary Staff Physician Cardiology 08/31/18 Simran Nelson, HANDS ASSEMBLER.RN PERIOPERATIVE [address] [place] [address] [place] [address] Hospice & Palliative Medicine 08/19/23 Marialuisa Portillo, RN Specialty Abstract Searcher Hospice & Palliative Medicine 08/19/23 Bumper And Painter Relationship Specialty Start Date End Date Shanthi Lu HANDS ASSEMBLER-RN PERIOPERATIVE [address] [place] [address] PCP - General Family Medicine 10/19/23 Bumper And Painter Relationship Specialty Start Date End Date Shanthi Lu [facility] [address] [place] [address] PCP - General Family Medicine 10/19/23 Bumper And Painter Relationship Specialty Start Date End Date Shanthi Lu [facility] [address] [place] [address] PCP - General Family Medicine 10/19/23 Bumper And Painter Relationship Specialty Start Date End Date Shanthi Lu [facility] [address] [place] [address] PCP - General Family Medicine 10/19/23 Bumper And Painter Relationship Specialty Start Date End Date Shanthi Lu [facility] [address] [place] [address] PCP - General Family Medicine 10/19/23 Bumper And Painter Relationship Specialty Start Date End Date [facility] [address] [place] 12/12/24 [place] [address] PCP - General Family Medicine 10/19/23 Bumper And Painter Relationship Specialty Start Date End Date Shanthi Lu [facility] [address] LEFT PM 12/12/24 [place] [address] PCP - General Family Medicine 10/19/23 Bumper And Painter Relationship Specialty Start Date End Date Shanthi Lu HANDS ASSEMBLER-[facility] [address] LEFT PM 12/12/24 [place] [address] PCP - General Family Medicine 10/19/23 Bumper And Painter Relationship Specialty Start Date End Date [facility] [address] PM 12/12/24 [place] [address] PCP - General Family Medicine 10/19/23 Bumper And Painter Relationship Specialty Start Date End Date No Pcp, [place] [address] PCP - General Family Medicine 01/11/25 01/11/25 Bumper And Painter Relationship Specialty Start Date End Date Miah Zamarripa, [facility] [address] [place] [address] PCP - General Internal Medicine 01/12/25 Bumper And Painter Relationship Specialty Start Date End Date Miah [facility]ripa, [facility] [address] [place] [address] PCP - General Internal Medicine 01/12/25 Bumper And Painter Relationship Specialty Start Date End Date Miah Zamarripa, HANDS ASSEMBLER-[facility] [address] [place] [address] PCP - General Internal Medicine 01/12/25 Bumper And Painter Relationship Specialty Start Date End Date Miah Zamarripa, HANDS ASSEMBLER-[facility] [address] [place] [address] PCP - General Internal Medicine 7/31/25 Reason [...] ATTENUATION SKULL BASE MID-THIGH Rich Hill MD [address] [place] [address] [place] [address] Molecular & Functional Imaging [address] [place] [address] Referral ID Status Reason Start Date Expiration Date V isits Requested Visits Authorized [id number] Closed Auto-Generate d Referral 01/04/2024 02/02/2024 1 1 Specialty Diagnoses / Procedures Referred By Contact Referred To Contact MOLECULAR & FUNCTIONAL IMAGING Diagnoses 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) Procedures NM PET/CT WHOLE BODY SUBSEQUENT PET IMAGING FOR CT ATTENUATION WHOLE BODY Rich Hill MD [address] [place] [address] [place] [address] Molecular & Functional Imaging [address] [place] [address] Referral ID Status Reason Start Date Expiration Date V isits Requested Visits Authorized [id number] Closed Auto-Generate d Referral 08/12/2023 06/14/2024 1 [...] on imaging test Rich Hill MD [address] [place] [address] [facility] [address] [facility] [place] [address] Referral ID Status Reason Start Date Expiration Date Visits Requested Visits Authorized [id number] Pending Review Specialty Services Required 12/22/2023 12/21/2024 1 1 Reason Onset Date Comments Med Refill 03/28/2024 Reason Comments Eye Exam Specialty Diagnoses / Procedures Referred By Contac t Referred To Contact Ophthalmology Diagnoses Toxoplasmosis Chorioretinitis of both eyes Oliva Cornell, OD [address] [facility] [address] [place] [address] Phone: tel: [facility] [address] [place] [address] Phone: tel: fax: Referral ID Status Reason Start Date Expiration Date V isits Requested Visits Authorized [id number] Closed Specialty Services Required 07/14/2024 07/14/2025 1 [...] solid organ excluding spleen (CMS-HCC) Shanthi Lu, HANDS ASSEMBLER-RN PERIOPERATIVE [address] [place] [address] Phone: tel: fax: Jovita Moreno [facility] - Medical Oncology [address] [place] [address] Phone: tel: fax: Referral ID Status Reason Start Date Expiration Date V isits Requested Visits Authorized [id number] Closed Specialty Services Required 10/26/2024 10/26/2025 1 [...] organ excluding spleen (CMS-HCC) Valdemar Garcia MD [address] [place] [address] Phone: tel: fax: [facility] [address] [place] [address] Phone: tel: fax: Referral ID Status Reason Start Date Expiration Date V isits Requested Visits Authorized [id number] Closed Specialty Services Required 12/30/2024 12/30/2025 1 1 Reason Comments Post-op Post op right inguin al lymph node biopsy performed 01/16/25 at [facility] Reason Comments Med Change Request FOR RECORDS [...] BE BASED ON THE PRIMARY CLINICAL RECORDS. [employer] provides no warranty or guarantee of the accuracy or completeness of information in this document.
[2025-02-08] VITALS (11 sets, daily range): BP systolic 137–148; BP diastolic 84–87; PULSE 96–116; TEMP 36.6; O2SAT 92–97
--- NOTE | 2025-02-08 04:39 | RESP.RT ---
patient care prioritized. Tx ordered TID and will be given at 9 am
[2025-02-08 05:52] LABS: Hematocrit 41.0 % (42.0-54.0); Hemoglobin 13.8 g/dL (14.0-18.0); Immature Granulocytes Abs Auto 0.02 10^3/uL (0.00-0.03); Immature Granulocytes Pct Auto 0.3 % (0.0-0.5); Lymphocytes Absolute Auto 0.5 10^3/uL (1.2-3.8); Mean Corpuscular HGB Conc 33.7 g/dL (29.9-35.2); Mean Corpuscular Hemoglobin 30.3 pg (25.9-34.0); Mean Corpuscular Volume 90.1 fL (80.0-94.0); Platelet Count 174 10^3/uL (150-450); Red Blood Count 4.55 10^6/uL (4.70-6.10); White Blood Count 6.4 10^3/uL (4.0-11.0)
[2025-02-08 06:04] LABS: Anion Gap 13.7; Blood Urea Nitrogen 14.0 mg/dL (7.0-18.0); Calcium 8.4 mg/dL (8.5-10.1); Carbon Dioxide 24.6 mmol/L (21.0-32.0); Chloride 105 mmol/L (98-107); Estimated GFR (African America >60 (>=60 mL/min/1.73m^2); Estimated GFR (Non-African Ame >60 (>=60 mL/min/1.73m^2); Glucose 174 mg/dL (74-106); Potassium 4.3 mmol/L (3.5-5.1); Sodium 139 mmol/L (136-145)
--- NOTE | 2025-02-08 08:15 | CM.NOTE ---
Rounds made with Dr. Adamson, pt will discharge to home. Pt on RA this am and denies shortness of breath. Pt will have walk test prior to discharge for any discharge needs. Pt will f/u with PCP and [facility] for Oncology. Pt at this time does not know PCP name, girlfriend will be in around 11:30 and give us information to schedule appt.
--- NOTE | 2025-02-08 08:30 | CM.NOTE ---
clarified status with Dr. Adamson, OBS status. RN doing walk test in hallway at this time, no needs for home oxygen. No other discharge needs identified.
[2025-02-08] MEDS: ENOXAPARIN SODIUM 40 MG/0.4 ML SYRINGE SUBQ (08:36)
[2025-02-08] MEDS: METHYLPREDNISOLONE SOD SUCC PF 40 MG/ML VIAL IVP (08:37)
[2025-02-08] MEDS: IPRATROPIUM/ALBUTEROL SULFATE 3 ML AMPUL.NEB IH (09:57)
--- NOTE | 2025-02-08 10:06 | PM.HP ---
HPI H&P: HPI History of Present Illness Chief complaint: HYPOXIA, RESPIRATORY DISTRESS Narrative: Mr. Seay is a 44-year-old gentleman with a history of lymphoma and depression. Patient came in with shortness of breath. 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 Patient inhaled bleach fume. He started having worsening cough, wheezing and congestion. He came to the emergency room yesterday and was found to have hypoxemia. Saturation was 89% on presentation. Patient never been diagnosed having COPD or asthma however he has been smoking since the age of 15. He told the ER MUSIC PROFESSOR that he quit smoking several months ago but he told me this morning that he continues to smoke half a pack daily. He used to smoke a pack and a half daily in the past. No chest pain. No fever or chills. He has lymphoma. He follows up with oncologist at [facility]. He had received chemo and radiation therapy in the past. Patient is feeling much better today compared to yesterday. Opioid HPI Opioid Management Most Recent Pain and Opioid Data: Last Pain Scale 7 02/07/25, 18:09 Last Pain Assessment Today, 00:01 Last MAR Pain Assessment 02/07/25, 20:57 Last ORT Total Score 3 02/07/25, 23:20 Last ORT Risk Category Low Risk 02/07/25, 23:20 Review of Systems ROS Status of ROS 10 or more systems reviewed and unremarkable except as noted in history and below [facility] Medical History (Updated 02/08/25 @ 10:12 by Garima Adamson MD) Arthritis ?M19.90 - Unspecified osteoarthritis, unspecified site (ICD-10) Social History (Updated 02/07/25 @ 23:36 by Simran Calle RN) Within the past year, how often did you have a drink containing alcohol: never Within the past year, how often did you have six or more drinks on one occasion: never Score interpretation: A score less than 4 is consistent with normal alcohol consumption. Smoking status: Current every day smoker Non-prescribed substance use: denies use Known occupational exposures/hazards: No Highest level of school completed/degree received: high school graduate Are you now , , , , never or living with a partner: In a typical week, how many times do you talk on the telephone with family, friends, or neighbors: 3 or more times per week Little interest or pleasure in doing things: not at all Feeling down, depressed, or hopeless: not at all Feel stressed/tense/nervous/anxious/difficulty sleeping: not at all Meds Home Medications and Allergies Home Medications ?Medication ?Instructions ?Recorded ?Confirmed ?Type aspirin 81 mg capsule 81 mg PO DAILY #30 caps 01/27/24 02/07/25 Rx gabapentin 300 mg capsule 300 mg PO Q8H 11/24/24 02/08/25 History doxycycline monohydrate 100 mg 100 mg PO BID 7 days #14 tabs 02/08/25 Rx tablet ipratropium 20 mcg-albuterol 100 1 puff inhalation Q4H PRN 02/08/25 Rx mcg/actuation mist for inhalation shortness of breath or wheezing #4 (Combivent Respimat) grams lumateperone 42 mg capsule 42 mg PO DAILY 02/08/25 02/08/25 History (Caplyta) prednisone 20 mg tablet 20 mg PO DAILY 3 days #3 tabs 02/08/25 Rx Allergies Allergy/AdvReac Type Severity Reaction Status Date / Time Sulfa (Sulfonamide Allergy Severe icthy Verified 02/07/25 18:09 Antibiotics) sulfamethoxazole (From Allergy Severe hives Verified 02/07/25 18:09 Bactrim) trimethoprim (From Bactrim) Allergy Severe hives Verified 02/07/25 18:09 Exam Narrative Exam Narrative: [pt is awake and alert. oriented to place, time and person, morbidly obese HEENT: [place] conjunctiva and NL buccal mucosa Neck: Supple, no tenderness Endocrine: No Thyromegaly. Vascular: No JVD or carotid bruit. Lymphatic: No cervical lymphadenopathy. Chest: Minimal expiratory wheezing or rhonchi this morning. Patient stated that he was wheezing a lot yesterday Heart RRR, no extra sound or murmur. Abd: Soft, no tenderness, no rebound and no rigidity. Increase abd girth therefore clinically I could not exclude the possibility of intra abd mass or organomegaly. LE: No cyanosis or clubbing, no varices or edema. Neuro: A A O. Nl speech, comprehension and attention. Nl and symetrical motor and tone examination through out. []] Constitutional Vital Signs, click to edit/add: Last Vital Signs Temp 97.9 F 02/08/25 07:34 Pulse 106 H 02/08/25 09:59 Resp 18 02/08/25 07:34 BP 148/87 H 02/08/25 07:34 Pulse Ox 95 02/08/25 09:59 O2 Del Method Room Air 02/08/25 09:59 O2 Flow Rate 2 02/08/25 04:37 Results Labs Labs: Short CBC 02/07/25 02/08/25 Range/Units 18:25 05:20 WBC 7.4 6.4 (4.0-11.0) 10^3/uL Hgb 14.2 13.8 L (14.0-18.0) g/dL Hct 40.7 L 41.0 L (42.0-54.0) % Plt Count 178 174 (150-450) 10^3/uL BMP 02/07/25 02/08/25 18:25 05:20 Sodium 136 139 Potassium 3.6 4.3 Chloride 102 105 Carbon Dioxide 27.5 24.6 BUN 14.0 14.0 Creatinine 1.26 1.13 Glucose 93 174 H Calcium 8.2 L 8.4 L Liver Function 02/07/25 Range/Units 18:25 Total Bilirubin 0.3 (0.2-1.0) mg/dL AST 27 (15-37) U/L ALT 44 (16-63) U/L Alkaline Phosphatase 111 (46-116) U/L Albumin 4.1 (3.4-5.0) g/dL Assessment and Plan Assessment and Plan (1) Acute hypoxic respiratory failure: (2) COPD with acute exacerbation: (3) Lung mass: (4) Lymphoma: (5) Tobacco abuse: Plan Acute hypoxic respiratory failure. Saturation dropped to 89%. Resolved. This morning his saturation was 95% on room air. Patient did not qualify for oxygen at rest nor with exertion. 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 CAT scan of the chest that does not show any pulmonary embolism or pneumonia. Patient responded very well to bronchodilators as well as Solu-Medrol. Patient is feeling great today and requesting to be discharged home today. He is not willing to stay any longer for additional monitoring, testing or treatment. Patient stated that he is enrolled in a program and he has to pay $25 a day if he does not show up to the class. I will refer patient to see pulmonary. I will discharge him on as needed Combivent, prednisone and antibiotic. He may need to be on LAMA, LABA Lung mass. Patient has been a smoker since age of 5 I suspect that this could be lung cancer and not related to his lymphoma. I will refer patient to see pulmonary. He may need to have PET, bronchoscopy and biopsy Lymphoma since 2019 Patient had received chemo and radiation treatment. He follows up with the [facility] oncology team. Patient is encouraged to follow-up with MUSIC PROFESSOR Tobacco addiction. Patient has been a smoker since age of 15. Patient told the emergency room provider that he quit several months ago but he told me this morning that he continues to smoke half a pack daily. He said that he used to smoke a pack and a half daily in the past. Counseling and education were provided. Elevated blood pressure Suspect hypertension I started patient on amlodipine 2.5 mg daily. This will need to be titrated, additional medication may be added to achieve reasonable blood pressure control. Once again, counseling about smoking cessation. Chronic medical conditions not listed above, incidental findings seen on labs and imaging. These would need to be addressed. Could be addressed when time and condition are appropriate. Could be addressed in the outpatient setting by PCP collaboration with other needed outpatient providers. Patient has multiple medical issues as listed above and others that are not listed. All appear to be stable. Patient is feeling great and requesting to be discharged home. He is not willing to stay any longer for any additional monitoring, diagnostic or therapeutic intervention. His hypoxemia had resolved. Patient did not qualify for oxygen at rest nor with exertion. At this time, I do not have any clear or strong clinical justification to extend inpatient hospitalization. Patient however will require close and frequent monitoring as well as additional work-up, investigation and therapeutic intervention that could take place from this point on post discharge. That is to prevent relapse, decompensation, rehospitalization and other medical implications. I instructed patient to ask her primary care doctor to obtain [facility] record entirely to address abnormalities seen on labs and imaging that I have and have not addressed during this hospitalization, follow-up on pending blood work, imaging and pathology is if available and to follow-up on needed medical care in the outpatient setting.
--- NOTE | 2025-02-08 10:53 | PM.DS1 ---
DS: Providers Provider Date of admission: 02/07/25 23:03 Primary care physician: Non-Staff Physician, DS: Diagnosis Discharge Diagnosis (1) Acute hypoxic respiratory failure: (2) COPD with acute exacerbation: (3) Lung mass: (4) Lymphoma: (5) Tobacco abuse: Plan As listed above and below and others that are not listed DS: Summary Hospital Course Hospital Course: Mr. Seay is a 44-year-old gentleman who came in with shortness of breath. 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 Saturation dropped to 89%. Resolved. This morning his saturation was 95% on room air. Patient did not qualify for oxygen at rest nor with exertion. 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 CAT scan of the chest that does not show any pulmonary embolism or pneumonia. Patient responded very well to bronchodilators as well as Solu-Medrol. Patient is feeling great today and requesting to be discharged home today. He is not willing to stay any longer for additional monitoring, testing or treatment. Patient stated that he is enrolled in a program and he has to pay $25 a day if he does not show up to the class. I will refer patient to see pulmonary. He may need PFTs I will discharge him on as needed Combivent, prednisone and antibiotic. He may need to be on LAMA, LABA and CSI Lung mass. Patient has been a smoker since age of 5 I suspect that this could be lung cancer and not related to his lymphoma. I will refer patient to see pulmonary. He may need to have PET, bronchoscopy and biopsy Lymphoma since 2019 Patient had received chemo and radiation treatment. He follows up with the [facility] oncology team. Patient is encouraged to follow-up with SOIL FIELD TECHNICIAN Tobacco addiction. Patient has been a smoker since age of 15. Patient told the emergency room provider that he quit several months ago but he told me this morning that he continues to smoke half a pack daily. He said that he used to smoke a pack and a half daily in the past. Counseling and education were provided. Elevated blood pressure Suspect hypertension I started patient on amlodipine 2.5 mg daily. This will need to be titrated, additional medication may be added to achieve reasonable blood pressure control. Once again, counseling about smoking cessation. Chronic medical conditions not listed above, incidental findings seen on labs and imaging. These would need to be addressed. Could be addressed when time and condition are appropriate. Could be addressed in the outpatient setting by PCP collaboration with other needed outpatient providers. Patient has multiple medical issues as listed above and others that are not listed. All appear to be stable. Patient is feeling great and requesting to be discharged home. He is not willing to stay any longer for any additional monitoring, diagnostic or therapeutic intervention. His hypoxemia had resolved. Patient did not qualify for oxygen at rest nor with exertion. At this time, I do not have any clear or strong clinical justification to extend inpatient hospitalization. Patient however will require close and frequent monitoring as well as additional work-up, investigation and therapeutic intervention that could take place from this point on post discharge. That is to prevent relapse, decompensation, rehospitalization and other medical implications. I instructed patient to ask her primary care doctor to obtain [facility] record entirely to address abnormalities seen on labs and imaging that I have and have not addressed during this hospitalization, follow-up on pending blood work, imaging and pathology is if available and to follow-up on needed medical care in the outpatient setting. Time Spent with Patient Time attestation: Total time spent providing and/or coordinating discharge services: Time spent: greater than 30 minutes Exam Constitutional Vital Signs, click to edit/add: Last Vital Signs Temp 97.9 F 02/08/25 07:34 Pulse 106 H 02/08/25 09:59 Resp 18 02/08/25 07:34 BP 148/87 H 02/08/25 07:34 Pulse Ox 95 02/08/25 09:59 O2 Del Method Room Air 02/08/25 09:59 O2 Flow Rate 2 02/08/25 04:37 DS: Data Data Completed and Pending Labs on day of discharge: Labs from last 24 hours 02/08/25 02/07/25 02/07/25 05:20 18:42 18:25 WBC 6.4 7.4 RBC 4.55 L 4.60 L Hgb 13.8 L 14.2 Hct 41.0 L 40.7 L MCV 90.1 88.5 MCH 30.3 30.9 MCHC 33.7 34.9 RDW 13.0 12.8 Plt Count 174 178 MPV 9.5 9.3 L Neut % (Auto) 89.8 H 77.2 H Lymph % (Auto) 8.1 L 9.6 L [place] % (Auto) 1.6 L 12.1 H Eos % (Auto) 0.0 L 0.5 L Baso % (Auto) 0.2 0.3 Neut # (Auto) 5.8 5.7 Lymph # (Auto) 0.5 L 0.7 L [place] # (Auto) 0.1 L 0.9 H Eos # (Auto) 0.0 0.0 Baso # (Auto) 0.0 0.0 Abs Immat Gran (auto) 0.02 0.02 Imm/Tot Granulo (auto) 0.3 0.3 Sodium 139 136 Potassium 4.3 3.6 Chloride 105 102 Carbon Dioxide 24.6 27.5 Anion Gap 13.7 10.1 BUN 14.0 14.0 Creatinine 1.13 1.26 Est GFR ( Amer) >60 >60 Est GFR (Non-Af Amer) >60 >60 BUN/Creatinine Ratio 12.4 11.1 Glucose 174 H 93 Calcium 8.4 L 8.2 L Total Bilirubin 0.3 AST 27 ALT 44 Alkaline Phosphatase 111 Troponin I High Sens 9.9 NT-Pro-B Natriuret Pep 60.0 Total Protein 7.3 Albumin 4.1 Globulin 3.2 Albumin/Globulin Ratio 1.3 Influenza Type A Ag Negative Influenza Type B Ag Negative RSV Antigen Not detected SARS-CoV-2 Ag (CV2AG) Negative Discharge Plan Discharge Disposition: Home, Self-Care Condition: Fair Discharge Medications: New Combivent Respimat 20-100 mcg/actuation mist 1 puff inhalation Q4H PRN (Reason: shortness of breath or wheezing) Qty: 4 2RF prednisone 20 mg tablet 20 mg PO DAILY 3 Days Qty: 3 0RF doxycycline monohydrate 100 mg tablet 100 mg PO BID 7 Days Qty: 14 0RF amlodipine 2.5 mg tablet 2.5 mg PO QD Qty: 30 2RF Continued aspirin 81 mg capsule 81 mg PO DAILY Qty: 30 0RF gabapentin 300 mg capsule 300 mg PO Q8H Caplyta 42 mg capsule 42 mg PO DAILY Print Language: Amharic Activity Restrictions/Additional Instructions: I may not have addressed or treated all of your medical illnesses or the abnormal blood work or imaging studies during this hospitalization. Please ask your primary care provider to obtain [facility] records entirely to follow up on all of the abnormal physical, laboratory, and imaging findings that I have not addressed. Please return back to the emergency room or seek medical attention if your symptoms worsen or return. Please cut down on smoking gradually over the next several weeks and quit by mid March Please follow-up with your lymphoma doctor within the next 2 weeks CAT scan of the chest showed that you have tumor in your lung which could be related to lymphoma or lung cancer. Please ask your cancer doctor to review CAT scan completed here at [facility]. You may need to have a biopsy for that lesion. Please follow-up with waistline joiner ( lung specialist ) Dr. Adam regarding high suspicion that you have emphysema and also regarding a tumor growth seen on your CAT scan of the chest that could be related to lymphoma or could be lung cancer. Discharging you from [facility] does not mean that your medical care ends here and now. You may still need additional monitoring, work up, investigation, and treatment plan to be handled from this point on by out patient providers including your primary care provider and specialists. For any medication question, please contact your retail pharmacist or your primary care provider. Thank you. Forms: Portal Instructions Follow Up Appointments: [facility] will call the patient to schedule a follow up appt. [phone]
[2025-02-08] MEDS: AMLODIPINE BESYLATE 5 MG TABLET 2.5 MG PO (11:18)
--- NOTE | 2025-02-08 11:57 | CM.NOTE ---
Dr. Herron's office after referral sent still not able to make appointment until physician reviews pt's chart. Dr. Herron's office will call pt for appointment. Pt aware that he will receive call from pulmonology and oncology for f/u appointments and reason for appointments.
--- NOTE | 2025-02-15 13:51 | CM.DCFOLLOWU ---
Person spoke with:patient How are you feeling? doing well How is your pain?none Did you understand your discharge instructions?yes Do you have any questions about your discharge instructions?no Were you given any prescriptions at discharge?yes Were you able to get your prescriptions filled?yes Do you understand how to take your medications as ordered?yes Do you have any questions about your follow up appointment and do you plan to keep your follow up appointment? has follow up today with PCP, he has not heard from Pul. or [facility]. BOGDAN called both places to check on follow ups. Nobody answered at [facility], SW left message to reach out to pt to get apt scheduled. BOGDAN spoke to alumnae secretary at Dr. Brannon office and they did receive information and they will be reaching out within the next few days. BOGDAN called back patient and updated him. BOGDAN advised if he does not hear from [facility] or Dr. Brannon office within the next week, he can call SW back and SW can assist. Is there anything else that you would like to discuss? no Questions/Comments/Concerns/Other: none
--- NOTE | 2025-02-15 14:43 | SWNOTE1 ---
BOGDAN received call from [facility] in regards to pt follow up. She does have pt on file, he was last seen on January 19, 2025. In order to schedule follow up they need clinical information from his hospital stay. For continuation of care, BOGDAN faxed over ED note, H&P, and labs to [facility].
== END 2025-02-08 12:02 | disposition home or self-care (01) ==
LOC: ER 21:34 → MS 23:09
PROVIDERS: Physician Assistant; Admitting Provider Internal Medicine; Emergency Provider Student in an Organized Health Care Education/Training Program; Visit Provider Internal Medicine
DX: J96.01 Acute respiratory failure with hypoxia (principal); J44.1 Chronic obstructive pulmonary disease with (acute) exacerbation; C81.90 Hodgkin lymphoma, unspecified, unspecified site; F32.A Depression, unspecified; F17.210 Nicotine dependence, cigarettes, uncomplicated; Z92.21 Personal history of antineoplastic chemotherapy; Z92.3 Personal history of irradiation; E66.01 Morbid (severe) obesity due to excess calories; R91.8 Other nonspecific abnormal finding of lung field; T54.91XA Toxic effect of unspecified corrosive substance, accidental (unintentional), initial encounter; R03.0 Elevated blood-pressure reading, without diagnosis of hypertension; Y93.E5 Activity, floor mopping and cleaning; Z68.30 Body mass index [BMI] 30.0-30.9, adult
CPT/HCPCS: 36415; 71046; 71275; 80048; 80053; 83880; 84484; 85025; 87040; 87420; 87804; 87811; 93005; 94640; 94761; 96365; 96368; 96372; 96375; 96376; 99285; G0378; J0456; J0696; J1650; J2919; Q9967